=== PATIENT | male | born 1935 | race Caucasian/White ===

== ENCOUNTER → 2017-07-13 12:30 | Outpatient (CLI) | payer MEDICARE, SELFPAY ==
--- NOTE | 2017-07-13 | CYSPIN_PTH ---
PATIENT: JOAN HOWARD LOC: [facility] U#:[id number] AGE/SX: 89/M ROOM: RE07/13/[address]: Dr. Remy Juan MD : [id number] BED: DIS: SPEC #: [id number] RECD: 07/13/17 14:59 STATUS: KELL AMEE #: [id number] GERALDO: 07/13/17 00:[address]: Remy Juan DEPT: CYTOLOGY RECD BY: Maurice Joseph ENTERED: 07/13/17 15:00 SP TYPE: CYSPIN FL OTHR DR: Dr. Yair Hart MD Tissues: Urine Procedures: Pap Stain (control) Special Stain Group II Cytospin Fluid HEADER OPERATION: Not noted PRE-OP DIAGNOSIS: C67.9 TISSUE SUBMITTED: Urine for cytology DIAGNOSIS CYTOLOGY Urine for cytology (cytospin): Mildly atypical urothelial cells noted. See comment. FREDI:fannie 07/14/17 COMMENT Clinical correlation and appropriate follow up are necessary. CYTOLOGY STUDY Slides are reviewed. CYTOLOGY GROSS Received is 50 ml of clear, yellow fluid labeled with the patient's name and and designated per the requisition as urine. Submitted for cytology preparation. 07/13/17 TC:5 CPT: 53692
[2017-07-13 13:04] LABS: Cytology, Body Fluid / CSF SEE PATHOLOGY REPORT
== END ==
PROVIDERS: Family Provider Internal Medicine; PCP Internal Medicine; Visit Provider Urology
DX: C67.9 Malignant neoplasm of bladder, unspecified (principal)
CPT/HCPCS: 88108; 88313

== ENCOUNTER 2018-06-16 19:32 | Inpatient (IN) | payer MEDICARE, SELFPAY ==
[2018-06-16] VITALS (11 sets, daily range): BP systolic 113–168; BP diastolic 63–118; PULSE 76–89; RESP 16–27; TEMP 36.6–38.4; O2SAT 89–96; BMI 72.4; BMI 31.9; BMI 32.0
--- NOTE | 2018-06-16 19:39 | EKG12_ITS ---
Test Reason : SOB Blood Pressure : / mmHG Vent. Rate : 082 BPM Atrial Rate : 077 BPM P-R Int : 000 ms QRS Dur : 090 ms QT Int : 366 ms P-R-T Axes : 000 029 -09 degrees QTc Int : 427 ms Atrial fibrillation Nonspecific ST abnormality Abnormal ECG Confirmed by YASEMIN BLACK, PREETI ([id number]), greeting card editor AC MONIQUE ([id number]) on 06/21/2018 8:40:56 AM Referred By: Maude Chacon Confirmed By:PREETI HAZEL MD
--- NOTE | 2018-06-16 19:50 | ED.DCSUM_ITS ---
- ER Visit Summary Date of Service: 06/16/18 Chief Complaint: Dyspnea, cough History of Present Illness: The patient is a 83 M sent from urgent care dyspnea, cough, discussed with health care provider reported after aerosol treatment pulse ox 85%. Came by private vehicle. He states he has been having productive cough, fever today. Reports 103 at urgent care. No medications given separate aerosol treatment. No history of asthma or COPD. Remote tobacco years ago. No chest pains. No history of strokes or cardiac issues. His medicines for high blood pressure and diabetes. No nausea or vomiting. No urinary symptoms. Physical Examination: General: Alert and oriented ?3, no acute distress HEENT: Normocephalic, atraumatic. Moist mucosa membranes Neck: supple, nontender. Cardiovascular: Regular rate and rhythm, no murmurs Respiratory: Rhonchi and rales at the bases. No distress. Abdomen: Soft, nontender, nondistended Extremities: Nontender, no edema, pulses intact ?4 Neuro: no focal neurological deficits. Test Results: EKG: Rate controlled A. fib rate of 82, no ST or T wave changes. White count 8.4 hemoglobin 12.4. Creatinine 1.38. Troponin negative. Influenza negative. Liver enzymes normal. ABG pH 7.42, CO2 24, PaO2 62, HCO3 23 at 8 L of oxygen. Lactic acid 1.3. Influenza negative. Chest x-ray ill- defined left lower lobe infiltrate. Emergency Department Course and Treatment: EKG new onset A. fib rate controlled he is on metoprolol for blood pressure. Reported fever respiratory rate 22 sepsis workup initiated. White count was normal. Creatinine 1.38. Lactic acid 1.3. Covered with Rocephin and Zithromax for an acquired pneumonia. Chest x- ray does confirm this. Chads 2 score is a 3. Vitals remained stable. Order for Lovenox. After discussion with hospitalist , requested hold Lovenox at this time. This was held. Recheck in the room patient did seem to convert back to normal sinus rhythm on the monitor. Patient will be admitted for further management. Treatment Plan: [] Disposition: Admission Impression: 1. Community acquired pneumonia 2. Hypoxemia 3. New-onset atrial fibrillation rate controlled This note was generated with Emitlessation software. It may contain incorrect words, spelling, and punctuation that were not noted in review of the chart prior to signing ED Disposition - Plan for ED Patient: Disposition: Acute Care Hospital [facility] Diagnosis: Pneumonia, Hypoxemia, New onset atrial fibrillation Referrals: Yair Hart MD [Primary Care Provider] -
[2018-06-16] MEDS: Albuterol 2.5 MG/3 ML VIAL.NEB. INHALATION (20:00)
[2018-06-16] MEDS: Ipratropium/Albuterol Sulfate 3 ML AMPUL.NEB INHALATION (20:00)
--- NOTE | 2018-06-16 20:07 | RAD_ITS ---
STUDY: X-RAY CHEST REASON FOR EXAM: Male, 83 years old. Cough TECHNIQUE: Single AP portable view of the chest. COMPARISON: Prior study of 01/28/2017 FINDINGS: monitoring and evaluation advisor leads are present. There is an ill-defined left lower lobe infiltrate. There is no demonstrated pleural abnormality. Normal size heart. Normal mediastinum and bennett. Normal visualized pulmonary arteries. There are calcified plaques of the aortic arch. There are diffuse degenerative changes of the visualized thoracic spine. Normal visualized ribs, clavicles, and shoulders. There is no demonstrated abnormality of the visualized soft tissue structures of the upper abdomen. RAD/Chest 1 View (Portable) IMPRESSION: Ill-defined left lower lobe infiltrate. Degenerative changes of the thoracic spine. Calcified plaques of the aortic arch. Electronically Signed: Hola Crouch MD at 21:08 EST , Service support ,
[2018-06-16 20:25] LABS: Allen Test NEG; Base Excess -2 mmol/L (-2 to +2); Bicarbonate 22.9 mmol/L (22-26); Blood Gas Specimen Type ART; PO2 62 mmHG (75-100); SITE R Radial; SO2 92 % (95-99); Time Given 2018; Total Carbon Dioxide 24 mmol/L; pH 7.42 (7.35-7.45)
[2018-06-16 20:25] LABS: Absolute Lymphocyte Count 0.57 X10^3/ul (0.83-4.51); Absolute Neutrophil Count 6.9 X10^3/uL (2.0-7.7); Basophil# 0.03 X10^3/uL; Basophil% 0.4 % (0-1); Eosinophil# 0.01 X10^3/uL; Eosinophils% 0.1 % (0-5); Hematocrit 38.9 % (40-54); Hemoglobin 12.4 g/dl (13.0-16.5); Lymphocyte # 0.57 X10^3/ul (4.0); Lymphocyte % 6.8 % (19-41); Mean Corp Hgb Conc 31.9 g/gl (32-36); Mean Corpuscular Hgb 30.2 pg (27.0-32.0); Mean Corpuscular Volume 94.6 fL (80-94); Mean Platelet Vol. 9.5 fl (6.2-12.0); Monocyte# 0.88 X10^3/uL; Monocyte% 10.4 % (0-10); Neutrophil # 6.93 X10^3/uL (2.7-7.7); Neutrophil % 82.1 % (47-70); Platelet Count 213 K/mm3 (150-450); RBC Distribution Width SD 47.5 fl (35.1-43.9); Red Blood Count 4.11 M/mm3 (4.6-6.2); White Blood Count 8.4 K/mm3 (4.4-11.0)
[2018-06-16 20:26] LABS: Differential Indicated SCAN CRITERIA MET; POSITIVE COUNT NO; POSITIVE DIFFERENTIAL YES; POSITIVE MORPHOLOGY NO
[2018-06-16 20:46] LABS: Anisocytosis RARE; Macrocytosis RARE; Platelet Estimate ADEQUATE (ADEQ)
[2018-06-16] MEDS: Ceftriaxone 1 GM/50 ML BAG IV (21:09)
[2018-06-16 21:32] LABS: ALB/GLOB Ratio 0.8 RATIO (0.9-2.4); AST(SGOT) 30 U/L (15-37); Alanine Aminotransfer ALT/SGPT 23 U/L (16-61); Albumin, Serum 3.3 g/dL (3.2-5.0); Alkaline Phosphatase 121 U/L (45-117); Anion Gap 10 (5-15); BUN 20 mg/dL (7-18); BUN/Creat Ratio 14.5 RATIO (10-20); Calcium,Total 8.4 mg/dL (8.5-10.1); Chloride 102 mmol/L (98-107); Creatinine, Serum 1.38 mg/dL (0.70-1.30); EST Glomerular Filtration Rate 52 mL/min (>60); Est Glom Filt Rate - Afr Amer 63 mL/min (>60); Estimated Creatinine Clearance 41.14 ml/min; Globulin 4.3 g/dL (2.2-4.2); Glucose 166 mg/dL (74-106); Lactic Acid 1.3 mmol/L (0.4-2.0); Potassium 4.3 mmol/L (3.5-5.1); Protein, Total 7.6 g/dL (6.4-8.2); Sodium Level 135 mmol/L (136-145)
[2018-06-16 21:49] LABS: International Normalized Ratio 1.1; Prothrombin Time (Protime)PT. 13.7 SECONDS (11.7-14.9)
[2018-06-16 21:51] LABS: Partial Thromboplast Time 27.2 Seconds (24.1-36.2)
--- NOTE | 2018-06-16 22:09 | CM.ED ---
Social Work Note Face to face with pt to complete initial assessment. Introduced self and role at [facility]. The pt reports to live in a two-story home with his . He does utilize the stairs to the upstairs and the basement several times a day. He is able to manage the stairs, but does report a shortness of breath with this activity. Pt is independent with ADLs and does not use DME at this time. Made aware that RN JES or SW on assigned unit can assist with obtaining DME at discharge if necessary. Understanding expressed. Pt does anticipate on returning home with support of his . Confirm that his PCP is Dr. Hart, and denies establishment with any specialists. Preferred pharmacy is [facility]. Pt does not have advanced directives, provided with education and information and pt declines to completes documents at this time. No further questions and pt to be transferred to unit. PLAN: Home with support of family. Elida Johnson, GRINDER SET UP OPERATOR GEAR [employer], PROFESSIONAL HOUSING CONSULTANT
--- NOTE | 2018-06-16 22:29 | HP.PCM_ITS ---
Problem List (1) Type 2 diabetes mellitus Status: Chronic (2) Sepsis Status: Acute (3) Community acquired pneumonia Status: Acute (4) Hypoxemia Status: Acute (5) New onset atrial fibrillation Status: Suspected (6) HTN (hypertension) Status: Chronic History of Present Illness Date of Admission: 06/16/18 Chief Complaint: Fever, productive cough, shortness of breath. The patient is a 83 year old M with past medical history as mentioned above was sent from urgent care to ED for fever, productive cough and shortness of breath as well as hypoxia. The patient stated that he has been sick for 3-4 days with sore throat and productive cough with moderate amount of white sputum, associated with exertional shortness of breath as well as subjective fever and today, he had a temperature of 103 Fahrenheit at the urgent care. He denied aggravating or relieving factors for this cough or shortness of breath. He denied chest pain, palpitation, dizziness or lightheadedness. Reportedly, his pulse ox was 85% on room air after he received breathing treatment at the urgent care. In the emergency department, patient was febrile, dyspneic and tachypneic, blood pressure and heart rate were stable and initially, pulse ox was 89% on room air. Routine blood work was remarkable for BUN of 20 and creatinine of 1.38, otherwise normal. Lactic acid was normal. LFT was normal. EKG revealed normal sinus rhythm, T wave can be seen in leads I and II, difficult to differentiate on lead III and there was a concern that he may have new onset atrial fibrillation. On telemetry, definitely it is sinus rhythm. Chest x-ray revealed haziness on the left base concerning for acute infiltrate. He is being admitted for left lower lobe community-acquired pneumonia with sepsis as well as hypoxemia and bronchospasm and questionable new onset atrial fibrillation. Past Medical History Past Medical History (Chronic Problems): Chronic Problems Type 2 diabetes mellitus (Chronic) Skin cancer (Chronic) HTN (hypertension) (Chronic) Allergies No Known Allergies Allergy (Verified 06/16/18 19:36) Home Medications: Ambulatory Orders Medication Instructions Recorded Aspirin [Aspirin, Baby] 81 mg PO DAILY@0800 02/23/16 Hydrochlorothiazide [Hctz] 25 mg PO DAILY 02/23/16 Amlodipine [Norvasc] 10 mg PO DAILY 06/16/18 Aspirin 650 mg PO PRN PRN 06/16/18 Ipratropium [place] 0.06% 2 spray NASAL BID 06/16/18 [ATROVENT NASAL SPRAY] Lisinopril [Zestril] 40 mg PO DAILY 06/16/18 Metformin HCl 1,000 mg PO BIDCM 06/16/18 Metoprolol(XL)Succ [Toprol Xl 100 mg PO DAILY 06/16/18 (Beta Ayala)] Neomycin/Polymyxin B/Hydrocort 3 drop EACH EAR QHS 06/16/18 [Jqjeblza-Oxirkzoqx-Xf Ear Soln] Surgical History: - - knee surgery, bladder tumor removed, aortic aneurysm repair. Psychiatric History: No pertinent psych hx Lives: Spouse/ Significant Other Smoking Status: Never smoker Alcohol: None Drugs: None - *Family History Maternal History Items: Cancer Paternal History Items: Heart Disease Review of Systems Constitutional: Reports: Anorexia, Fever, Weakness, Fatigue. Denies: Chills Eyes: Denies: Blurred vision, Double vision, Drainage, Redness HEENT: Reports: Difficulty Hearing, Sore Throat. Denies: Ear Pain, Eye Pain, Nasal Congestion Cardiovascular: Denies: Chest Pain, Chest Pressure, Edema, Heaviness, Palpitations, Syncope Respiratory: Reports: Cough, Shortness of Breath, Sputum production, Wheezing Gastrointestinal: Denies: Abdominal Pain, Constipation, Diarrhea, Nausea, Vomiting Genitourinary: Denies: Dysuria, Frequency, Hematuria Musculoskeletal: Denies: Arm Pain, Back Pain, Foot Pain Skin: Denies: Dryness, Rash Neurological: Denies: Balance problems, Blurred vision, Double vision, Change in Speech, Slurred speech, Confusion, Headaches, Incoordination Psychiatric: Denies: Anxiety, Depression Endocrine: Denies: Change in Body Habitus, Polydipsia VTE Information - Inpt Only VTE Present on Admission: No VTE Mechan Device Prophylaxis: None VTE Pharm Prophylaxis ordered?: Yes Patient Problems: Active and Suspected Problems Sepsis (Acute) Community acquired pneumonia (Acute) Hypoxemia (Acute) New onset atrial fibrillation (Suspected) - Physical Exam General: Alert, Oriented x3, Cooperative, - - Minimally short of breath. HEENT: Atraumatic, PERRLA, EOMI, Normocephalic Oral: Moist Mucosa, No Gingival or Mucosal Lesions/ Ulcerations Neck: Supple, No JVD, Negative Carotid Bruits, Trachea Midline, Thyroid Normal Size and Texture Lungs: Diminished, Rales, Rhonchi, Short of Breath, Wheezes, - - Decreased breath sounds bilateral, coarse crackles on the left base, bilateral expiratory wheezes. Cardiovascular: Regular rate, Regular Rhythm, Normal S1, Normal S2, PMI Normal Abdomen: Bowel Sounds Present, Soft, Non Tender, Non-Distended, No Hepato- splenomegaly Extremities: No clubbing, No cyanosis, No edema Skin: No rashes, No breakdown Lymphatic: No Cervical, Supraclavicular, or Inguinal Adenopathy Neurological: Cranial nerves II-XII grossly intact, Motor Exam 5/5 strength throughout Psych/Mental Status: Normal Affect, Appropriate, Alert and oriented to time, place, person, mood and affect Vital Signs Temp Pulse Resp BP Pulse Ox 99.5 F H 85 23 H 164/77 H 94 06/16/18 22:00 06/16/18 22:00 06/16/18 22:00 06/16/18 22:00 06/16/18 22:00 Oxygen Flow Rate (L/min) 4 Oxygen Delivery Method Room Air Weight: 504 lb 13.737 oz Body Mass Index (BMI) 72.4 Microbiology Past 72 Hours 06/16/18 21:00 Influenza Types A,B Direct FA (HARSHAL) - Final Mucosa - Nasopharyngeal Laboratory Tests Past 24 Hrs 06/16/18 06/16/18 06/16/18 20:10 20:10 20:10 WBC 8.4 RBC 4.11 L Hgb 12.4 L Hct 38.9 L MCV 94.6 H MCH 30.2 MCHC 31.9 L RDW 14.0 RDW Differential 47.5 H Plt Count 213 MPV 9.5 Immature Gran % (Auto) 0.200 Neut % (Auto) 82.1 H Lymph % (Auto) 6.8 L Pine % (Auto) 10.4 H Eos % (Auto) 0.1 Baso % (Auto) 0.4 Absolute Neuts (auto) 6.9 Absolute Lymphs (auto) 0.57 L Total Counted Not Reportable Differential Comment SEE COMMENT Platelet Estimate ADEQUATE Anisocytosis RARE Macrocytosis RARE PT Cancelled INR Cancelled APTT Cancelled Specimen Type Sample Site pH Bicarbonate Actual POC Total CO2 Base Excess O2 Saturation ABG pCO2 ABG pO2 Isidro Test O2 Delivery Device Liter Flow Blood Gas Notified Whom Blood Gas Notified Time Sodium Cancelled Potassium Cancelled Chloride Cancelled Carbon Dioxide Cancelled Anion Gap Cancelled BUN Cancelled Creatinine Cancelled Estim Creat Clear Calc Cancelled Est GFR (MDRD) Af Amer Cancelled Est GFR (MDRD) Non-Af Cancelled BUN/Creatinine Ratio Cancelled Glucose Cancelled Lactic Acid Calcium Cancelled Total Bilirubin Cancelled AST Cancelled ALT Cancelled Alkaline Phosphatase Cancelled Troponin I Cancelled Total Protein Cancelled Albumin Cancelled Globulin Cancelled Albumin/Globulin Ratio Cancelled 06/16/18 06/16/18 06/16/18 20:10 20:19 21:00 WBC RBC Hgb Hct MCV MCH MCHC RDW RDW Differential Plt Count MPV Immature Gran % (Auto) Neut % (Auto) Lymph % (Auto) Pine % (Auto) Eos % (Auto) Baso % (Auto) Absolute Neuts (auto) Absolute Lymphs (auto) Total Counted Differential Comment Platelet Estimate Anisocytosis Macrocytosis PT INR APTT Specimen Type ART Sample Site R Radial pH 7.42 Bicarbonate Actual 22.9 POC Total CO2 24 Base Excess -2 O2 Saturation 92 L ABG pCO2 35.0 ABG pO2 62 L Isidro Test NEG O2 Delivery Device S Mask Liter Flow 8.0 Blood Gas Notified Whom ED Blood Gas Notified Time 2017 Sodium 135 L Potassium 4.3 Chloride 102 Carbon Dioxide 23.0 Anion Gap 10 BUN 20 H Creatinine 1.38 H Estim Creat Clear Calc 41.14 Est GFR (MDRD) Af Amer 63 Est GFR (MDRD) Non-Af 52 L BUN/Creatinine Ratio 14.5 Glucose 166 H Lactic Acid Cancelled Calcium 8.4 L Total Bilirubin 0.30 AST 30 ALT 23 Alkaline Phosphatase 121 H Troponin I < 0.015 Total Protein 7.6 Albumin 3.3 Globulin 4.3 H Albumin/Globulin Ratio 0.8 L 06/16/18 06/16/18 06/16/18 21:00 21:00 21:36 WBC RBC Hgb Hct MCV MCH MCHC RDW RDW Differential Plt Count MPV Immature Gran % (Auto) Neut % (Auto) Lymph % (Auto) Pine % (Auto) Eos % (Auto) Baso % (Auto) Absolute Neuts (auto) Absolute Lymphs (auto) Total Counted Differential Comment Platelet Estimate Anisocytosis Macrocytosis PT Cancelled 13.7 INR Cancelled 1.1 APTT Cancelled 27.2 Specimen Type Sample Site pH Bicarbonate Actual POC Total CO2 Base Excess O2 Saturation ABG pCO2 ABG pO2 Isidro Test O2 Delivery Device Liter Flow Blood Gas Notified Whom Blood Gas Notified Time Sodium Potassium Chloride Carbon Dioxide Anion Gap BUN Creatinine Estim Creat Clear Calc Est GFR (MDRD) Af Amer Est GFR (MDRD) Non-Af BUN/Creatinine Ratio Glucose Lactic Acid 1.3 Calcium Total Bilirubin AST ALT Alkaline Phosphatase Troponin I Total Protein Albumin Globulin Albumin/Globulin Ratio Clinical Impression(s) from Imaging Studies Chest X-Ray 06/16/18 20:07 IMPRESSION: Ill-defined left lower lobe infiltrate. Degenerative changes of the thoracic spine. Calcified plaques of the aortic arch. Electronically Signed: Hola Crouch MD at 21:08 EST , Service support , Assessment/Plan All Active Problems Sepsis (Acute) Community acquired pneumonia (Acute) Hypoxemia (Acute) This is an 83 years old male patient presented to the emergency room from the [facility] because of fever, productive cough and shortness of breath, found to have probable infiltrate on the chest x-ray on the left lower base as well as found to have fever, tachypnea consistent with sepsis, found to have questionable new onset A. fib on EKG and he is being admitted for left lower lobe community acquired pneumonia with sepsis, bronchospasm with hypoxemia and questionable new onset atrial fibrillation. #1 left lower lobe community-acquired pneumonia/sepsis: Chest x-ray reviewed as above. Patient is febrile, tachypneic and dyspneic with evidence of infection. Lactic acid was normal. Blood pressure and heart rate are stable. Plan: Admit to PCU, cardiac monitoring, blood culture, sputum culture, urinalysis, urine culture, pneumococcal and Legionella antigen, respiratory panel for viruses, start IV Rocephin and Zithromax for pneumonia, bronchodilators, incentive spirometer, chest physiotherapy, repeat CBC and BMP tomorrow morning, PT OT evaluation and treatment. #2 bronchospasm/hypoxemia: Diffuse wheezing on chest auscultation. Patient is an ex-smoker for a long time ago, never been diagnosed with COPD. This likely because of pneumonia. ABG revealed pH of 7.42, PCO2 of 35 and PO2 of 62. Plan: IV antibiotics, bronchodilators with DuoNeb and albuterol, oxygen by nasal cannula to keep O2 saturation more than 92%. #3 questionable new onset atrial fibrillation: EKG reviewed, P wave is evident on leads I and II, not clear on lead III. On telemetry, it is normal sinus rhythm. Patient had no cardiac history, no history of A. fib. Plan: Cardiac monitoring, repeat EKG tomorrow morning, 2D echocardiogram, TSH. #4 type 2 diabetes mellitus: ADA diet, Accu-Cheks, insulin sliding scale, hold metformin for now. #5 hypertension: Blood pressure stable, continue Norvasc, HCTZ, metoprolol and lisinopril. #6 history of abdominal aortic aneurysm: Status post repair, stable, no acute issues. #7 DVT prophylaxis: Subcu Lovenox. This note was generated with PenteoSurround dictation software. It may contain incorrect words, spelling, and punctuation that were not noted in checking the note before signing. Code Visit Inpatient E&M: 86302 Init Hosp L3
--- NOTE | 2018-06-16 22:29 | ECHOCS_ITS ---
Version 2 Reason For Study: Abn EKG Procedure This was a 2D Doppler, Color Flow transthoracic echocardiogram. Contrast injection was performed. Exam performed portable in patient room. Left Ventricle Normal LV size. Left ventricular systolic function is normal. The estimated ejection fraction is 55 %. Stage 1 diastolic dysfunction. No regional wall motion abnormalities noted. Right Ventricle Normal RV size. Normal systolic function. Atria The left atrium is mildly enlarged. Normal right atrium. Mitral Valve Normal mitral valve. Tricuspid Valve Normal tricuspid valve. Mild to moderate (1-2+) tricuspid valve insufficiency. Pulmonary artery systolic pressure is 50 mmHg. Mild pulmonary hypertension. Aortic Valve Trisinus/trileaflet aortic valve. Mild focal aortic valve calcification. Pulmonic Valve Normal pulmonic valve. Great Vessels Normal aortic root. The pulmonary artery is normal size. Normal inferior vena cava. Pericardium/Pleural No pericardial effusion. Medication Definity0.2ml given slow IV push to enhance endocardial definition. MMode/2D Measurements & Calculations LVIDd: 3.9 cm IVSd: 1.6 cm Ao root diam: 3.1 cm LVIDs: 2.2 cm LVPWd: 1.2 cm RVDd: 4.2 cm FS: 43.4 % LAV(MOD-bp): 65.8 ml LVAd ap4: 34.0 cm2 SV(MOD-sp4): 72.5 ml LAV(MOD-bp) Indexed: 30.1 ml/m2 EDV(MOD-sp4): 117.5 ml LAV(MOD-sp2): 68.1 ml EDV(sp4-el): 123.2 ml LAV(MOD-sp4): 63.1 ml LVAs ap4: 19.1 cm2 ESV(MOD-sp4): 45.0 ml ESV(sp4-el): 44.6 ml EF(MOD-sp4): 61.7 % EF(sp4-el): 63.8 % SV(sp4-el): 78.6 ml LA A4 area: 22.5 cm2 LA dimension(2D): 4.7 cm RA A4 area: 17.1 cm2 Doppler Measurements & Calculations MV E max derick: 99.0 cm/sec Lat Peak E' Derick: 9.0 cm/sec Med Peak E' Derick: 6.4 cm/sec MV A max derick: 108.7 cm/sec E/E' lat: 11.0 E/E' med: 15.5 MV E/A: 0.91 Ao V2 max: 152.1 cm/sec LV V1 max: 116.9 cm/sec PA V2 max: 95.0 cm/sec Ao max P.2 mmHg LV V1 max P.5 mmHg Ao V2 mean: 103.5 cm/sec Ao mean P.1 mmHg Ao V2 VTI: 30.9 cm PI end-d derick: 113.0 cm/sec TR max derick: 329.3 cm/sec TR max P.4 mmHg Interpretation Summary Normal LV size. Left ventricular systolic function is normal. The estimated ejection fraction is 55 %. Stage 1 diastolic dysfunction. Mild focal aortic valve calcification. Pulmonary artery systolic pressure is 50 mmHg. Mild pulmonary hypertension. Contrast injection was performed. Ordering Physician: Maude Chacon Referring Physician: Yair Hart Performed By: Karina Valentine, JOHN, RVT
[2018-06-16 23:05] LABS: Thyroid Stim Hormone (TSH) 1.83 uIU/mL (0.358-3.74)
[2018-06-17] VITALS (15 sets, daily range): BP systolic 119–146; BP diastolic 64–83; PULSE 64–80; RESP 17–22; TEMP 36.5–37.4; O2SAT 92–97
[2018-06-17] MEDS: Ipratropium/Albuterol Sulfate 3 ML AMPUL.NEB INHALATION ×4 (00:57→20:00)
[2018-06-17 03:56] LABS: Mucous, Urine 0 SEEN /hpf (<or=2+); Red Blood Cells-Urine 0 SEEN /hpf (0-5); White Blood Cells 0 SEEN /hpf (0-5)
[2018-06-17 04:15] LABS: Color, Urine Yellow (Yellow); Glucose, Dipstick Normal (Normal); Ketone-Dipstick 5 mg/dl (Negative); Leukocyte Esterase-Dipstick Negative /ul (Negative); Nitrite-Dipstick Negative (Negative); Occult Blood-Urine Negative /ul (Negative); Protein-Dipstick 15 mg/dl (Negative); Urine Bilirubin Dipstick Negative (Negative); Urine Clarity Clear (Clear); Urine Urobilinogen Normal (Normal)
[2018-06-17 04:21] LABS: Bacteria RARE /hpf (None Seen); Squamous Epithelial Cells - UA 0-5 SEEN /hpf (0-5)
[2018-06-17 05:52] LABS: Anion Gap 9 (5-15); BUN 17 mg/dL (7-18); BUN/Creat Ratio 14.2 RATIO (10-20); Calcium,Total 7.9 mg/dL (8.5-10.1); Chloride 103 mmol/L (98-107); EST Glomerular Filtration Rate 61 mL/min (>60); Est Glom Filt Rate - Afr Amer 74 mL/min (>60); Estimated Creatinine Clearance 47.31 ml/min; Glucose 130 mg/dL (74-106); Potassium 3.3 mmol/L (3.5-5.1); Sodium Level 138 mmol/L (136-145)
--- NOTE | 2018-06-17 05:55 | EKG12_ITS ---
Test Reason : AM EKG Blood Pressure : / mmHG Vent. Rate : 075 BPM Atrial Rate : 156 BPM P-R Int : 160 ms QRS Dur : 094 ms QT Int : 394 ms P-R-T Axes : 075 025 018 degrees QTc Int : 439 ms Sinus tachycardia with 2nd degree A-V block (Mobitz II) Nonspecific ST abnormality Abnormal ECG When compared with ECG of 16-JUN-2018 20:07, MANUAL COMPARISON REQUIRED, DATA IS UNCONFIRMED Confirmed by YASEMIN BLACK, PREETI ([id number]), school photograph editor AC MONIQUE ([id number]) on 06/21/2018 8:59:48 AM Referred By: Maude Chacon Confirmed By:PREETI HAZEL MD
[2018-06-17 06:11] LABS: Absolute Lymphocyte Count 0.49 X10^3/ul (0.83-4.51); Absolute Neutrophil Count 4.9 X10^3/uL (2.0-7.7); Basophil# 0.01 X10^3/uL; Basophil% 0.2 % (0-1); Hematocrit 33.5 % (40-54); Hemoglobin 10.9 g/dl (13.0-16.5); Lymphocyte # 0.49 X10^3/ul (4.0); Lymphocyte % 8.1 % (19-41); Mean Corp Hgb Conc 32.5 g/gl (32-36); Mean Corpuscular Hgb 31.1 pg (27.0-32.0); Mean Corpuscular Volume 95.4 fL (80-94); Mean Platelet Vol. 9.2 fl (6.2-12.0); Monocyte# 0.66 X10^3/uL; Monocyte% 10.9 % (0-10); Neutrophil # 4.89 X10^3/uL (2.7-7.7); Neutrophil % 80.6 % (47-70); Platelet Count 198 K/mm3 (150-450); RBC Distribution Width CV 13.4 % (11.6-14.6); RBC Distribution Width SD 44.1 fl (35.1-43.9); Red Blood Count 3.51 M/mm3 (4.6-6.2); White Blood Count 6.1 K/mm3 (4.4-11.0)
[2018-06-17 06:14] LABS: Differential Indicated SCAN CRITERIA MET; POSITIVE COUNT NO; POSITIVE DIFFERENTIAL YES; POSITIVE MORPHOLOGY NO
[2018-06-17 07:11] LABS: Bedside Glucose 139 mg/dL (70-110)
[2018-06-17] MEDS: guaiFENesin 1,200 MG Tablet 1200 MG PO ×2 (09:03→21:46)
[2018-06-17] MEDS: Aspirin 81 MG TAB.CHEW PO (09:03)
[2018-06-17] MEDS: amLODIPine 10 MG Tablet PO (09:03)
[2018-06-17] MEDS: hydroCHLOROthiazide 25 MG Tablet PO (09:03)
[2018-06-17] MEDS: Enoxaparin 30 MG/0.3 ML Syringe SC (09:04)
[2018-06-17] MEDS: Lisinopril 40 MG Tablet PO (09:04)
[2018-06-17] MEDS: Metoprolol(XL)Succ 100 MG Tablet PO (09:04)
[2018-06-17 09:46] LABS: Magnesium 1.6 mg/dL (1.6-2.6)
--- NOTE | 2018-06-17 10:30 | CASEMGMT ---
Addendum entered by Carol Julian 06/17/18 16:07: *Pt states he has no preference of DME company for the walker or for O2 if he would need it. Script obtained and faxed to [facility]. *PT/RUPESH alvarenga reviewed and LEXY ANDRE discussed therapy with pt. Pt states he would like to do Out-pt therapy. States he has done this in the past and thought that it was very helpful. Script obtained for Out-pt PT and given to pt so he can take to Out-pt therapy location of his choice. Pt voices appreciation. *Pt will need Home O2 qualification testing completed within 24 hrs of discharge to determine if pt qualifies for oxygen on d/c. Original Note: RN JES NOTE: To room to talk with pt. Intro self and LEXY ANDRE role to pt. Pt sitting up in recliner chair, awake/alert/oriented. Per SW note, pt stated he may need a cane or a walker. Discussion with pt about these DME. Pt made aware insurance will not cover cost of cane but that he could purchase [id number]. Pt stated, I have a cane available if I would need it. Pt stated he would like a walker if it can be billed through insurance. PT/OT lyle pending. Cuong WATERS RN, CM
[2018-06-17] MEDS: 0.9% NaCl Peripheral Flush Adult/Peds IV ×2 (10:43→14:03)
[2018-06-17 11:55] LABS: Bedside Glucose 165 mg/dL (70-110)
--- NOTE | 2018-06-17 14:15 | PN_ITS ---
Addendum entered and electronically signed by LUCI Garza 06/17/18 14:16: Code Visit Additional diagnosis: Chronic kidney disease stage III-at baseline. Original Note: Patient Problems: Active and Suspected Problems Sepsis (Acute) Community acquired pneumonia (Acute) Hypoxemia (Acute) New onset atrial fibrillation (Suspected) Subjective: Patient seen and examined. Breathing somewhat improved. Complains of cough, states he is unable to bring up sputum. Complains of intermittent fever/chills. - Physical Exam General: Alert, Oriented x3, Cooperative, No apparent distress HEENT: Atraumatic, PERRLA, EOMI, Normocephalic Neck: Supple, No JVD, Negative Carotid Bruits Lungs: Diminished, Rhonchi, Wheezes Cardiovascular: Regular rate, Regular Rhythm, Normal S1, Normal S2, No murmurs Abdomen: Bowel Sounds Present, Soft, Non Tender, Non-Distended Extremities: No clubbing, No cyanosis, No edema, Capillary Refill Less than 3 Seconds Skin: No rashes, No breakdown Musculoskeletal: No Tenderness to Palpation of Joints or Extremities Neurological: Cranial nerves II-XII grossly intact, Neuro grossly intact Psych/Mental Status: Normal Affect, Appropriate Vital Signs Temp Pulse Resp BP Pulse Ox 98.7 F 69 22 H 130/68 H 93 06/17/18 08:51 06/17/18 11:21 06/17/18 13:28 06/17/18 09:04 06/17/18 08:51 Oxygen Flow Rate (L/min) 3 Oxygen Delivery Method Nasal Cannula Weight: 222 lb 14.197 oz Body Mass Index (BMI) 31.9 Intake and Output for Last 24 Hours 06/15/18 06/16/18 06/17/18 23:59 23:59 23:59 Intake Total 400 / 400 1614 / 1614 Output Total 0 / 0 Balance 400 / 400 1614 / 1614 Microbiology Past 72 Hours 06/17/18 01:00 Respiratory Panel (PCR) - Final Mucosa - Nose RSV B 06/17/18 03:50 Legionella Antigen - Final Urine, Clean Catch 06/17/18 03:50 Streptococcus pneumoniae Antigen (M - Final Urine, Clean Catch 06/16/18 21:00 Influenza Types A,B Direct FA (HARSHAL) - Final Mucosa - Nasopharyngeal Laboratory Tests Past 24 Hrs 06/16/18 06/16/18 06/16/18 20:10 20:10 20:10 WBC 8.4 RBC 4.11 L Hgb 12.4 L Hct 38.9 L MCV 94.6 H MCH 30.2 MCHC 31.9 L RDW 14.0 RDW Differential 47.5 H Plt Count 213 MPV 9.5 Immature Gran % (Auto) 0.200 Neut % (Auto) 82.1 H Lymph % (Auto) 6.8 L Dare % (Auto) 10.4 H Eos % (Auto) 0.1 Baso % (Auto) 0.4 Absolute Neuts (auto) 6.9 Absolute Lymphs (auto) 0.57 L Total Counted Not Reportable Differential Comment SEE COMMENT Platelet Estimate ADEQUATE Anisocytosis RARE Macrocytosis RARE PT Cancelled INR Cancelled APTT Cancelled Specimen Type Sample Site pH Bicarbonate Actual POC Total CO2 Base Excess O2 Saturation ABG pCO2 ABG pO2 Isidro Test O2 Delivery Device Liter Flow Blood Gas Notified Whom Blood Gas Notified Time Sodium Cancelled Potassium Cancelled Chloride Cancelled Carbon Dioxide Cancelled Anion Gap Cancelled BUN Cancelled Creatinine Cancelled Estim Creat Clear Calc Cancelled Est GFR (MDRD) Af Amer Cancelled Est GFR (MDRD) Non-Af Cancelled BUN/Creatinine Ratio Cancelled Glucose Cancelled Lactic Acid Calcium Cancelled Magnesium Total Bilirubin Cancelled AST Cancelled ALT Cancelled Alkaline Phosphatase Cancelled Troponin I Cancelled Total Protein Cancelled Albumin Cancelled Globulin Cancelled Albumin/Globulin Ratio Cancelled TSH Urine Color Urine Clarity Urine pH Ur Specific [place] Urine Protein Urine Glucose (UA) Urine Ketones Urine Occult Blood Urine Nitrite Urine Bilirubin Urine Urobilinogen Ur Leukocyte Esterase Urine RBC Urine WBC Ur Squamous Epith Cells Urine Bacteria Urine Mucus 06/16/18 06/16/18 06/16/18 20:10 20:19 21:00 WBC RBC Hgb Hct MCV MCH MCHC RDW RDW Differential Plt Count MPV Immature Gran % (Auto) Neut % (Auto) Lymph % (Auto) Dare % (Auto) Eos % (Auto) Baso % (Auto) Absolute Neuts (auto) Absolute Lymphs (auto) Total Counted Differential Comment Platelet Estimate Anisocytosis Macrocytosis PT INR APTT Specimen Type ART Sample Site R Radial pH 7.42 Bicarbonate Actual 22.9 POC Total CO2 24 Base Excess -2 O2 Saturation 92 L ABG pCO2 35.0 ABG pO2 62 L Isidro Test NEG O2 Delivery Device S Mask Liter Flow 8.0 Blood Gas Notified Whom ED Blood Gas Notified Time 2017 Sodium 135 L Potassium 4.3 Chloride 102 Carbon Dioxide 23.0 Anion Gap 10 BUN 20 H Creatinine 1.38 H Estim Creat Clear Calc 41.14 Est GFR (MDRD) Af Amer 63 Est GFR (MDRD) Non-Af 52 L BUN/Creatinine Ratio 14.5 Glucose 166 H Lactic Acid Cancelled Calcium 8.4 L Magnesium Total Bilirubin 0.30 AST 30 ALT 23 Alkaline Phosphatase 121 H Troponin I < 0.015 Total Protein 7.6 Albumin 3.3 Globulin 4.3 H Albumin/Globulin Ratio 0.8 L TSH Urine Color Urine Clarity Urine pH Ur Specific [place] Urine Protein Urine Glucose (UA) Urine Ketones Urine Occult Blood Urine Nitrite Urine Bilirubin Urine Urobilinogen Ur Leukocyte Esterase Urine RBC Urine WBC Ur Squamous Epith Cells Urine Bacteria Urine Mucus 06/16/18 06/16/18 06/16/18 21:00 21:00 21:00 WBC RBC Hgb Hct MCV MCH MCHC RDW RDW Differential Plt Count MPV Immature Gran % (Auto) Neut % (Auto) Lymph % (Auto) Dare % (Auto) Eos % (Auto) Baso % (Auto) Absolute Neuts (auto) Absolute Lymphs (auto) Total Counted Differential Comment Platelet Estimate Anisocytosis Macrocytosis PT Cancelled INR Cancelled APTT Cancelled Specimen Type Sample Site pH Bicarbonate Actual POC Total CO2 Base Excess O2 Saturation ABG pCO2 ABG pO2 Isidro Test O2 Delivery Device Liter Flow Blood Gas Notified Whom Blood Gas Notified Time Sodium Potassium Chloride Carbon Dioxide Anion Gap BUN Creatinine Estim Creat Clear Calc Est GFR (MDRD) Af Amer Est GFR (MDRD) Non-Af BUN/Creatinine Ratio Glucose Lactic Acid 1.3 Calcium Magnesium Total Bilirubin AST ALT Alkaline Phosphatase Troponin I Total Protein Albumin Globulin Albumin/Globulin Ratio TSH 1.83 Urine Color Urine Clarity Urine pH Ur Specific [place] Urine Protein Urine Glucose (UA) Urine Ketones Urine Occult Blood Urine Nitrite Urine Bilirubin Urine Urobilinogen Ur Leukocyte Esterase Urine RBC Urine WBC Ur Squamous Epith Cells Urine Bacteria Urine Mucus 06/16/18 06/17/18 06/17/18 21:36 03:50 05:20 WBC 6.1 RBC 3.51 L Hgb 10.9 L Hct 33.5 L MCV 95.4 H MCH 31.1 MCHC 32.5 RDW 13.4 RDW Differential 44.1 H Plt Count 198 MPV 9.2 Immature Gran % (Auto) 0.200 Neut % (Auto) 80.6 H Lymph % (Auto) 8.1 L Dare % (Auto) 10.9 H Eos % (Auto) 0.0 Baso % (Auto) 0.2 Absolute Neuts (auto) 4.9 Absolute Lymphs (auto) 0.49 L Total Counted Not Reportable Differential Comment Platelet Estimate Anisocytosis Macrocytosis PT 13.7 INR 1.1 APTT 27.2 Specimen Type Sample Site pH Bicarbonate Actual POC Total CO2 Base Excess O2 Saturation ABG pCO2 ABG pO2 Isidro Test O2 Delivery Device Liter Flow Blood Gas Notified Whom Blood Gas Notified Time Sodium Potassium Chloride Carbon Dioxide Anion Gap BUN Creatinine Estim Creat Clear Calc Est GFR (MDRD) Af Amer Est GFR (MDRD) Non-Af BUN/Creatinine Ratio Glucose Lactic Acid Calcium Magnesium Total Bilirubin AST ALT Alkaline Phosphatase Troponin I Total Protein Albumin Globulin Albumin/Globulin Ratio TSH Urine Color Yellow Urine Clarity Clear Urine pH 5.0 Ur Specific [place] 1.020 Urine Protein 15 H Urine Glucose (UA) Normal Urine Ketones 5 H Urine Occult Blood Negative Urine Nitrite Negative Urine Bilirubin Negative Urine Urobilinogen Normal Ur Leukocyte Esterase Negative Urine RBC 0 SEEN Urine WBC 0 SEEN Ur Squamous Epith Cells 0-5 SEEN Urine Bacteria RARE Urine Mucus 0 SEEN 06/17/18 06/17/18 05:20 05:40 WBC RBC Hgb Hct MCV MCH MCHC RDW RDW Differential Plt Count MPV Immature Gran % (Auto) Neut % (Auto) Lymph % (Auto) Dare % (Auto) Eos % (Auto) Baso % (Auto) Absolute Neuts (auto) Absolute Lymphs (auto) Total Counted Differential Comment Platelet Estimate Anisocytosis Macrocytosis PT INR APTT Specimen Type Sample Site pH Bicarbonate Actual POC Total CO2 Base Excess O2 Saturation ABG pCO2 ABG pO2 Isidro Test O2 Delivery Device Liter Flow Blood Gas Notified Whom Blood Gas Notified Time Sodium 138 Potassium 3.3 L Chloride 103 Carbon Dioxide 26.0 Anion Gap 9 BUN 17 Creatinine 1.20 Estim Creat Clear Calc 47.31 Est GFR (MDRD) Af Amer 74 Est GFR (MDRD) Non-Af 61 BUN/Creatinine Ratio 14.2 Glucose 130 H Lactic Acid Calcium 7.9 L Magnesium 1.6 Total Bilirubin AST ALT Alkaline Phosphatase Troponin I Total Protein Albumin Globulin Albumin/Globulin Ratio TSH Urine Color Urine Clarity Urine pH Ur Specific [place] Urine Protein Urine Glucose (UA) Urine Ketones Urine Occult Blood Urine Nitrite Urine Bilirubin Urine Urobilinogen Ur Leukocyte Esterase Urine RBC Urine WBC Ur Squamous Epith Cells Urine Bacteria Urine Mucus POC Glucose 06/17/18 06/17/18 11:50 06:57 POC Glucose 165 H 139 H Medical Necessity - Tobacco Use Smoking Status: Never smoker Assessment/Plan All Active Problems Sepsis (Acute) Community acquired pneumonia (Acute) Hypoxemia (Acute) 1. Acute hypoxic respiratory insufficiency secondary to left lower lobe community-acquired pneumonia and acute RSV B-patient did not meet criteria for sepsis. Chest x-ray admission with left lower lobe infiltrate. Urine for strep and Legionella negative. Respiratory panel positive for RSV. Continue azithromycin and Rocephin. Mucinex 1200 mg p.o. twice daily. IV Solu-Medrol. Albuterol and DuoNeb aerosols. IS. Continue supplement oxygen to maintain O2 at or above 90%. Tylenol as needed for fever. Blood cultures pending. 2. Questionable new onset atrial fibrillation-has remained sinus rhythm during admission. EKG on admission with questionable A. fib. TSH, Mg within normal limits. Echocardiogram pending. Monitor telemetry. Troponin negative. 3. Type 2 diabetes [id number] ACHS with sliding scale insulin. Metformin on hold. 4. Hypertension-on lisinopril, metoprolol, HCTZ, amlodipine. 5. Extensive tobacco use history, never evaluated for COPD-recommend outpatient follow-up. 6. History of abdominal aortic aneurysm status post repair DVT prophylaxis-Lovenox subcu This patient was seen by LUCI Garza under the supervision of Dr. Flores.
[2018-06-17] MEDS: Insulin Lispro 100 UNIT/ML INSULN.PEN SQ ×2 (16:30→21:55)
[2018-06-17 16:31] LABS: Bedside Glucose 270 mg/dL (70-110)
[2018-06-17 17:32] LABS: Ferritin 556 ng/mL (26-388); Iron 16 ug/dL (65-175); Iron Binding Capacity,Total 239 ug/dL (250-450); PERCENT IRON SATURATION 6.7 % (15.0-55.0)
[2018-06-17] MEDS: Ceftriaxone 1 GM/50 ML BAG IV (21:45)
[2018-06-17 22:16] LABS: Bedside Glucose 318 mg/dL (70-110)
[2018-06-18] VITALS (17 sets, daily range): BP systolic 124–145; BP diastolic 63–81; PULSE 57–81; RESP 16–22; TEMP 36.4–37.1; O2SAT 90–96
[2018-06-18] MEDS: 0.9% NaCl Peripheral Flush Adult/Peds IV (06:09)
[2018-06-18 07:01] LABS: Bedside Glucose 278 mg/dL (70-110)
[2018-06-18] MEDS: Ipratropium/Albuterol Sulfate 3 ML AMPUL.NEB INHALATION ×4 (07:03→19:00)
[2018-06-18 07:11] LABS: Hematocrit 35.3 % (40-54); Hemoglobin 11.5 g/dl (13.0-16.5); Mean Corp Hgb Conc 32.6 g/gl (32-36); Mean Corpuscular Volume 95.1 fL (80-94); Mean Platelet Vol. 9.8 fl (6.2-12.0); Platelet Count 189 K/mm3 (150-450); RBC Distribution Width CV 13.1 % (11.6-14.6); RBC Distribution Width SD 43.6 fl (35.1-43.9); Red Blood Count 3.71 M/mm3 (4.6-6.2); White Blood Count 7.1 K/mm3 (4.4-11.0)
[2018-06-18 07:18] LABS: Scan Indicated on CBC? Y/N NO
[2018-06-18] MEDS: Insulin Lispro 100 UNIT/ML INSULN.PEN SQ ×4 (07:46→21:42)
[2018-06-18 08:24] LABS: Anion Gap 9 (5-15); BUN 23 mg/dL (7-18); BUN/Creat Ratio 16.3 RATIO (10-20); Calcium,Total 8.2 mg/dL (8.5-10.1); Chloride 102 mmol/L (98-107); Creatinine, Serum 1.41 mg/dL (0.70-1.30); EST Glomerular Filtration Rate 51 mL/min (>60); Est Glom Filt Rate - Afr Amer 62 mL/min (>60); Estimated Creatinine Clearance 40.27 ml/min; Glucose 274 mg/dL (74-106); Potassium 4.4 mmol/L (3.5-5.1); Sodium Level 135 mmol/L (136-145)
[2018-06-18] MEDS: amLODIPine 10 MG Tablet PO (09:28)
[2018-06-18] MEDS: Metoprolol(XL)Succ 100 MG Tablet PO (09:28)
[2018-06-18] MEDS: Lisinopril 40 MG Tablet PO (09:30)
[2018-06-18] MEDS: hydroCHLOROthiazide 25 MG Tablet PO (09:30)
[2018-06-18] MEDS: Aspirin 81 MG TAB.CHEW PO (09:30)
[2018-06-18] MEDS: Enoxaparin 30 MG/0.3 ML Syringe SC (09:34)
[2018-06-18] MEDS: guaiFENesin 1,200 MG Tablet 1200 MG PO ×2 (09:35→21:42)
--- NOTE | 2018-06-18 11:49 | PCM.PROGNOTE ---
Patient Problems: Active and Suspected Problems Sepsis (Acute) Community acquired pneumonia (Acute) Hypoxemia (Acute) New onset atrial fibrillation (Suspected) Subjective: Patient seen and examined. Breathing improving. Continues to require supplemental oxygen. Patient states has trouble taking a deep breath due to making him cough. No productive cough. No other complaints. - Physical Exam General: Alert, Oriented x3, Cooperative HEENT: Atraumatic, PERRLA, EOMI, Normocephalic Oral: Dry Mucosa Neck: Supple, No JVD, Negative Carotid Bruits Lungs: Diminished, Rhonchi, Wheezes Abdomen: Bowel Sounds Present, Soft, Non Tender, Non-Distended Extremities: No clubbing, No cyanosis, No edema, Capillary Refill Less than 3 Seconds Skin: No rashes, No breakdown Musculoskeletal: No Tenderness to Palpation of Joints or Extremities Neurological: Cranial nerves II-XII grossly intact, Neuro grossly intact Psych/Mental Status: Normal Affect, Appropriate Vital Signs Temp Pulse Resp BP Pulse Ox 98.8 F 80 20 H 140/74 H 96 06/18/18 10:20 06/18/18 11:18 06/18/18 11:18 06/18/18 10:20 06/18/18 10:20 Oxygen Flow Rate (L/min) 3 Oxygen Delivery Method Nasal Cannula Weight: 222 lb 14.197 oz Body Mass Index (BMI) 31.9 Intake and Output for Last 24 Hours 06/16/18 06/17/18 06/18/18 23:59 23:59 23:59 Intake Total 400 / 400 2430 / 2430 Output Total 0 / 0 Balance 400 / 400 2430 / 2430 Microbiology Past 72 Hours 06/17/18 03:50 Urine Culture - Preliminary Urine, Clean Catch Culture exhibits no growth. 06/17/18 01:00 Respiratory Panel (PCR) - Final Mucosa - Nose RSV B 06/17/18 03:50 Legionella Antigen - Final Urine, Clean Catch 06/17/18 03:50 Streptococcus pneumoniae Antigen (M - Final Urine, Clean Catch 06/16/18 21:00 Influenza Types A,B Direct FA (HARSHAL) - Final Mucosa - Nasopharyngeal Laboratory Tests Past 24 Hrs 06/17/18 06/18/18 06/18/18 05:40 06:57 06:57 WBC 7.1 RBC 3.71 L Hgb 11.5 L Hct 35.3 L MCV 95.1 H MCH 31.0 MCHC 32.6 RDW 13.1 RDW Differential 43.6 Plt Count 189 MPV 9.8 Sodium 135 L Potassium 4.4 Chloride 102 Carbon Dioxide 24.0 Anion Gap 9 BUN 23 H Creatinine 1.41 H Estim Creat Clear Calc 40.27 Est GFR (MDRD) Af Amer 62 Est GFR (MDRD) Non-Af 51 L BUN/Creatinine Ratio 16.3 Glucose 274 H Calcium 8.2 L Iron 16 L TIBC 239 L Iron Saturation 6.7 L Ferritin 556 H Vitamin B12 Folate 23.40 06/18/18 06:57 WBC RBC Hgb Hct MCV MCH MCHC RDW RDW Differential Plt Count MPV Sodium Potassium Chloride Carbon Dioxide Anion Gap BUN Creatinine Estim Creat Clear Calc Est GFR (MDRD) Af Amer Est GFR (MDRD) Non-Af BUN/Creatinine Ratio Glucose Calcium Iron TIBC Iron Saturation Ferritin Vitamin B12 Pending Folate POC Glucose 06/18/18 06/17/18 06/17/18 06:50 21:53 16:17 POC Glucose 278 H 318 H 270 H 06/17/18 11:50 POC Glucose 165 H Medical Necessity - Tobacco Use Smoking Status: Never smoker Assessment/Plan All Active Problems Sepsis (Acute) Community acquired pneumonia (Acute) Hypoxemia (Acute) 1. Acute hypoxic respiratory insufficiency secondary to left lower lobe community-acquired pneumonia and acute RSV B- Chest x-ray admission with left lower lobe infiltrate. Urine for strep and Legionella negative. Respiratory panel positive for RSV. Continue azithromycin and Rocephin. Mucinex 1200 mg p.o. twice daily. IV Solu-Medrol. Albuterol and DuoNeb aerosols. IS. Continue supplement oxygen to maintain O2 at or above 90%. Tylenol as needed for fever. Blood cultures pending. Walking pulse ox pending, anticipate patient will need to supplement oxygen at discharge. 2. Questionable new onset atrial fibrillation-has remained sinus rhythm during admission. EKG on admission with questionable A. fib. TSH, Mg within normal limits. Echocardiogram showed an EF of 55%, stage I diastolic dysfunction, pulmonary artery systolic pressure 50 mmHg. Monitor telemetry. Troponin negative. 3. Type 2 diabetes [id number]-Lkvoy ACHS with sliding scale insulin. Metformin on hold. 4. Hypertension-on lisinopril, metoprolol, HCTZ, amlodipine. 5. Extensive tobacco use history, never evaluated for COPD-recommend outpatient follow-up. 6. History of abdominal aortic aneurysm status post repair 7. Chronic macrocytic anemia/iron deficiency anemia-stable. Initiated on iron supplementation. 8. Chronic kidney disease stage III-creatinine increased from yesterday, 1.4 today. Gentle IV fluids. Repeat BMP in a.m. DVT prophylaxis-Lovenox subcu This patient was seen by LUCI Garza under the supervision of Dr. Flores.
[2018-06-18] MEDS: Ferrous Gluconate 324 MG Tablet PO ×2 (12:42→16:20)
[2018-06-18] MEDS: 0.9% Normal Saline 1,000 ML 100 ML IV (12:43)
--- NOTE | 2018-06-18 14:40 | NURSING ---
Student nurse charting reviewed.
[2018-06-18 16:21] LABS: Bedside Glucose 328 mg/dL (70-110)
[2018-06-18 16:56] LABS: Bedside Glucose 290 mg/dL (70-110)
[2018-06-18] MEDS: Ceftriaxone 1 GM/50 ML BAG IV (21:42)
[2018-06-18 22:11] LABS: Bedside Glucose 275 mg/dL (70-110)
[2018-06-19] VITALS (7 sets, daily range): BP systolic 128–130; BP diastolic 57–78; PULSE 65–84; RESP 16–18; TEMP 36.2–36.3; O2SAT 92–94
[2018-06-19] MEDS: 0.9% NaCl Peripheral Flush Adult/Peds IV ×2 (05:48→05:49)
[2018-06-19] MEDS: Ipratropium/Albuterol Sulfate 3 ML AMPUL.NEB INHALATION (06:53)
[2018-06-19 07:04] LABS: Anion Gap 11 (5-15); BUN 27 mg/dL (7-18); BUN/Creat Ratio 22.1 RATIO (10-20); Calcium,Total 8.6 mg/dL (8.5-10.1); Chloride 103 mmol/L (98-107); Creatinine, Serum 1.22 mg/dL (0.70-1.30); EST Glomerular Filtration Rate 60 mL/min (>60); Est Glom Filt Rate - Afr Amer 73 mL/min (>60); Estimated Creatinine Clearance 46.54 ml/min; Glucose 197 mg/dL (74-106); Sodium Level 139 mmol/L (136-145)
[2018-06-19 07:06] LABS: Bedside Glucose 173 mg/dL (70-110)
[2018-06-19] MEDS: Insulin Lispro 100 UNIT/ML INSULN.PEN SQ (08:29)
[2018-06-19] MEDS: Lisinopril 40 MG Tablet PO (09:49)
[2018-06-19] MEDS: Metoprolol(XL)Succ 100 MG Tablet PO (09:49)
[2018-06-19] MEDS: amLODIPine 10 MG Tablet PO (09:49)
[2018-06-19] MEDS: Ferrous Gluconate 324 MG Tablet PO (09:49)
[2018-06-19] MEDS: hydroCHLOROthiazide 25 MG Tablet PO (09:49)
[2018-06-19] MEDS: Enoxaparin 30 MG/0.3 ML Syringe SC (09:49)
[2018-06-19] MEDS: guaiFENesin 1,200 MG Tablet 1200 MG PO (09:49)
[2018-06-19] MEDS: Aspirin 81 MG TAB.CHEW PO (09:49)
--- NOTE | 2018-06-19 11:05 | DCINST_ITS ---
- Discharge Diagnoses Current Active Problems: Current Active and Chronic Problems Type 2 diabetes mellitus (Chronic) Sepsis (Acute) Community acquired pneumonia (Acute) Hypoxemia (Acute) You will use the following diet at home:: Calorie/Carbohydrate Controlled (specify 1200, 1400, etc) Discharge Activity: Return to Normal Activity Call your doctor if you observe: Fever of 101 or Higher, Shortness of breath, Dizziness, Fainting spells, Chest pain Allergies/Adverse Reactions: Allergies No Known Allergies Allergy (Verified 06/16/18 19:36) Medications to take at Discharge Aspirin [Aspirin, Baby] 81 mg PO DAILY@0800 02/23/16 Hydrochlorothiazide [Hctz] 25 mg PO DAILY 02/23/16 Amlodipine [Norvasc] 10 mg PO DAILY 06/16/18 Aspirin 650 mg PO PRN PRN 06/16/18 Ipratropium [place] 0.06% [ATROVENT NASAL SPRAY] 2 spray NASAL BID 06/16/18 Lisinopril [Zestril] 40 mg PO DAILY 06/16/18 Metformin HCl 1,000 mg PO BIDCM 06/16/18 Metoprolol(XL)Succ [Toprol Xl (Beta Ayala)] 100 mg PO DAILY 06/16/18 Neomycin/Polymyxin B/Hydrocort [Aplphdvf-Gjhqyboxb-Wp Ear Soln] 3 drop EACH EAR QHS 06/16/18 Albuterol Inhaler [Ventolin Hfa] 1 - 2 puff INHALATION Q4H PRN PRN #1 inhaler 06/19/18 Ferrous Gluconate 324 mg PO BIDCM #60 tablet 06/19/18 Prednisone See Taper PO DAILY #30 tablet 06/19/18 levoFLOXacin tablet [Levaquin tablet] 750 mg PO DAILY #7 tablet 06/19/18 The following prescriptions were given: Albuterol Inhaler [Ventolin Hfa] 1 - 2 puff INHALATION Q4H PRN PRN #1 inhaler PRN Reason: Shortness Of Breath levoFLOXacin tablet [Levaquin tablet] 750 mg PO DAILY #7 tablet Prednisone See Taper PO DAILY #30 tablet Ferrous Gluconate 324 mg PO BIDCM #60 tablet Primary Care Physician: Yair Hart MD [Primary Care Provider] - Please follow up with your Primary Care Physician in: 1 Week Test Results: Test results from this visit will be discussed in further detail at your follow- up appointment, if applicable. Proposed Discharge Date: 06/19/18
--- NOTE | 2018-06-19 11:58 | PCM.DC.SUM ---
Discharge Date and Diagnosis Date of Admission: 06/16/18 Date of Discharge: 06/19/18 - Primary Discharge Diagnosis Active and Suspected Problems 1. Acute sepsis secondary to acute hypoxic respiratory insufficiency as a result of left lower lobe community-acquired pneumonia and acute RSV B 2. Hypokalemia, resolved 3. Questionable new onset atrial fibrillation 4. Type 2 diabetes mellitus 5. Hypertension 6. History of abdominal aortic aneurysm status post repair 7. Chronic macrocytic anemia/iron deficiency anemia 8. Chronic kidney disease stage III - Secondary Discharge Diagnosis Chronic Problems Type 2 diabetes mellitus (Chronic) Skin cancer (Chronic) HTN (hypertension) (Chronic) Hospital Course and Treatment Imaging Results: Diagnostic Data Chest X-Ray 06/16/18 20:07 IMPRESSION: Ill-defined left lower lobe infiltrate. Degenerative changes of the thoracic spine. Calcified plaques of the aortic arch. Electronically Signed: Hola Crouch MD at 21:08 EST , Service support , Operations: None Procedures: 2-D Echocardiogram Summary of Care Provided: The patient is a 83 year old M admitted 06/16/2018 due to fever, productive cough, shortness of breath. 1. Acute sepsis secondary to acute hypoxic respiratory insufficiency as a result of left lower lobe community-acquired pneumonia and acute RSV B- Chest x-ray admission with left lower lobe infiltrate. Urine for strep and Legionella negative. Respiratory panel positive for RSV. Patient received IV azithromycin and Rocephin. Discharged on Levaquin 750 mg for 7 days. IV Solu-Medrol transition to prednisone taper at discharge. Albuterol inhaler as needed for shortness of breath/wheezing. Patient weaned off of supplemental oxygen. Walking pulse ox completed prior to discharge and patient did not require further supplement oxygen at rest or with ambulation. Follow-up with primary care physician in 1 week. 2. Questionable new onset atrial fibrillation-has remained sinus rhythm during admission. EKG on admission with questionable A. fib. TSH, Mg within normal limits. Echocardiogram showed an EF of 55%, stage I diastolic dysfunction, pulmonary artery systolic pressure 50 mmHg. 3. Type 2 diabetes mellitus-continue home metformin regimen. 4. Hypertension-on lisinopril, metoprolol, HCTZ, amlodipine. 5. Extensive tobacco use history, never evaluated for COPD-recommend outpatient follow-up. 6. History of abdominal aortic aneurysm status post repair 7. Chronic macrocytic anemia/iron deficiency anemia-stable. Initiated on iron supplementation. 8. Chronic kidney disease stage III-stable. General: Alert, Oriented x3, Cooperative HEENT: Atraumatic, PERRLA, EOMI, Normocephalic Oral: Moist mucosa Neck: Supple, No JVD, Negative Carotid Bruits Lungs: Diminished, Rhonchi, Wheezes Abdomen: Bowel Sounds Present, Soft, Non Tender, Non-Distended Extremities: No clubbing, No cyanosis, No edema, Capillary Refill Less than 3 Seconds Skin: No rashes, No breakdown Musculoskeletal: No Tenderness to Palpation of Joints or Extremities Neurological: Cranial nerves II-XII grossly intact, Neuro grossly intact Psych/Mental Status: Normal Affect, Appropriate Patient seen and examined prior to discharge. Physical assessment as noted above. Patient is stable for discharge with follow up recommendations as noted above. This patient was seen by LUCI Garza under the supervision of Dr. Flores. - Physical Exam Vital Signs Temp Pulse Resp BP Pulse Ox 97.4 F L 75 16 128/57 H 93 06/19/18 09:44 06/19/18 11:04 06/19/18 09:44 06/19/18 09:44 06/19/18 09:44 Oxygen Flow Rate (L/min) [ 2 AMBULATION with Oxygen] Oxygen Flow Rate (L/min) 3 Oxygen Delivery Method Room Air Weight: 222 lb 14.197 oz Body Mass Index (BMI) 31.9 Intake and Output for Last 24 Hours 06/17/18 06/18/18 06/19/18 23:59 23:59 23:59 Intake Total 2430 / 2430 1520 / 1520 156 / 156 Balance 2430 / 2430 1520 / 1520 156 / 156 Microbiology Past 72 Hours 06/18/18 17:11 Gram Stain - Final Sputum, Expectorated/Coughed 06/16/18 20:10 Blood Culture - Preliminary Blood Culture (Wb) - Left Wrist No growth in 48 hours. 06/16/18 20:25 Blood Culture - Preliminary Blood Culture (Wb) - Right Wrist No growth in 48 hours. 06/17/18 03:50 Urine Culture - Final Urine, Clean Catch Culture exhibits no growth. 06/17/18 01:00 Respiratory Panel (PCR) - Final Mucosa - Nose RSV B 06/17/18 03:50 Legionella Antigen - Final Urine, Clean Catch 06/17/18 03:50 Streptococcus pneumoniae Antigen (M - Final Urine, Clean Catch 06/16/18 21:00 Influenza Types A,B Direct FA (HARSHAL) - Final Mucosa - Nasopharyngeal Laboratory Tests Past 24 Hrs 06/19/18 05:39 Sodium 139 Potassium 4.0 Chloride 103 Carbon Dioxide 25.0 Anion Gap 11 BUN 27 H Creatinine 1.22 Estim Creat Clear Calc 46.54 Est GFR (MDRD) Af Amer 73 Est GFR (MDRD) Non-Af 60 BUN/Creatinine Ratio 22.1 H Glucose 197 H Calcium 8.6 POC Glucose 06/19/18 06/18/18 06/18/18 06:56 21:39 16:17 POC Glucose 173 H 275 H 290 H 06/18/18 12:39 POC Glucose 328 H Discharge Diet: 1800 Calorie Control Diet, Carb Control Diet Discharge Activity: Return to Normal Activity Call your doctor if you observe: Fever of 101 or Higher, Shortness of breath, Dizziness, Fainting spells, Chest pain Home Medications: Medications to take at Discharge Aspirin [Aspirin, Baby] 81 mg PO DAILY@0800 02/23/16 Hydrochlorothiazide [Hctz] 25 mg PO DAILY 02/23/16 Amlodipine [Norvasc] 10 mg PO DAILY 06/16/18 Aspirin 650 mg PO PRN PRN 06/16/18 Ipratropium [place] 0.06% [ATROVENT NASAL SPRAY] 2 spray NASAL BID 06/16/18 Lisinopril [Zestril] 40 mg PO DAILY 06/16/18 Metformin HCl 1,000 mg PO BIDCM 06/16/18 Metoprolol(XL)Succ [Toprol Xl (Beta Ayala)] 100 mg PO DAILY 06/16/18 Neomycin/Polymyxin B/Hydrocort [Wmpovugy-Ieoqesfpx-Pc Ear Soln] 3 drop EACH EAR QHS 06/16/18 Albuterol Inhaler [Ventolin Hfa] 1 - 2 puff INHALATION Q4H PRN PRN #1 inhaler 06/19/18 Ferrous Gluconate 324 mg PO BIDCM #60 tablet 06/19/18 Prednisone See Taper PO DAILY #30 tablet 06/19/18 levoFLOXacin tablet [Levaquin tablet] 750 mg PO DAILY #7 tablet 06/19/18 Following Prescrptions Were Given to Patient: Albuterol Inhaler [Ventolin Hfa] 1 - 2 puff INHALATION Q4H PRN PRN #1 inhaler PRN Reason: Shortness Of Breath levoFLOXacin tablet [Levaquin tablet] 750 mg PO DAILY #7 tablet Prednisone See Taper PO DAILY #30 tablet Ferrous Gluconate 324 mg PO BIDCM #60 tablet Primary Care Physician: Yair Hart MD [Primary Care Provider] - Please follow up with your Primary Care Physician in: 1 Week Disposition: Home Minutes spent on discharge:: 35 Patient Condition:: Stable Medical Necessity - Tobacco Use Smoking Status: Never smoker Meaningful Use Info Meaningful Use Diagnoses (Choose all that apply): None applicable
[2018-06-20 10:35] LABS: Vitamin B12 294 pg/mL (211-911)
--- NOTE | 2018-06-20 15:23 | CASEMGMT ---
LEXY ANDRE DC PHONE CALL DC DATE: 06/19/18 DC DISPOSITION: Home LACE/STRATA: 03/19 Intro role of CM to patient via home phone. Pt states he is doing well, no questions re: insurance, follow up. Has appt with PCP and anticipates will be able to have family drive him. Discussed [facility] delivery from [employer] and that [facility] is attempting to contact them. Pt states they can deliver anytime. -RN CM called to [employer]. They state they need to have copay prior to delivery. RN JES requested they contact pt SONNY as he is home and will be able to speak with them. Jerry WATERS RN ACM
== END 2018-06-19 13:05 | disposition home or self-care (01) | DRG 871 ==
LOC: ED 21:52 → PCU 22:03
PROVIDERS: Nurse Practitioner Family; Admitting Provider Hospitalist; Emergency Provider Emergency Medicine; Family Provider Internal Medicine; PCP Internal Medicine; Referring Provider Hospitalist; Visit Provider Family Medicine
DX: A41.9 Sepsis, unspecified organism (principal); J96.01 Acute respiratory failure with hypoxia; J18.9 Pneumonia, unspecified organism; E87.1 Hypo-osmolality and hyponatremia; I48.0 Paroxysmal atrial fibrillation; E87.6 Hypokalemia; D53.9 Nutritional anemia, unspecified; I12.9 Hypertensive chronic kidney disease with stage 1 through stage 4 chronic kidney disease, or unspecified chronic kidney disease; E11.22 Type 2 diabetes mellitus with diabetic chronic kidney disease; N18.3 Chronic kidney disease, stage 3 (moderate); E86.0 Dehydration; T50.2X5A Adverse effect of carbonic-anhydrase inhibitors, benzothiadiazides and other diuretics, initial encounter; B97.4 Respiratory syncytial virus as the cause of diseases classified elsewhere; Z87.891 Personal history of nicotine dependence; Z79.84 Long term (current) use of oral hypoglycemic drugs; Z86.79 Personal history of other diseases of the circulatory system
CPT/HCPCS: 36415; 36600; 71045; 80048; 80053; 81001; 82607; 82728; 82746; 82803; 82962; 83540; 83550; 83605; 83735; 84443; 84484; 85025; 85027; 85610; 85730; 87040; 87070; 87086; 87205; 87449; 87633; 87804; 93005; 93306; 94640; 94667; 94668; 97110; 97116; 97161; 97165; 97530; 97535; 99284; J7030; Q9957; A4216; C8929

== ENCOUNTER 2019-04-14 23:55 | Inpatient (IN) | payer MEDICARE, SELFPAY ==
[2018-06-16 22:49] VITALS: BMI 31.9
[2019-04-14 23:56] VITALS: BP 132/65; PULSE 96; RESP 20; TEMP 37.8; O2SAT 94; BMI 33.3
[2019-04-15] VITALS (47 sets, daily range): BP systolic 77–137; BP diastolic 50–90; PULSE 73–96; RESP 12–35; TEMP 36.7–37.8; O2SAT 86–99; BMI 33.9; BMI 34.0
--- NOTE | 2019-04-15 00:15 | EKG12_ITS ---
Test Reason : SOB Blood Pressure : / mmHG Vent. Rate : 087 BPM Atrial Rate : 087 BPM P-R Int : 166 ms QRS Dur : 092 ms QT Int : 350 ms P-R-T Axes : 003 003 005 degrees QTc Int : 421 ms Normal sinus rhythm Normal ECG Confirmed by YASEMIN BLACK, PREETI ([id number]), assistant production editor AC MONIQUE ([id number] on 04/17/2019 11:38:58 AM Referred By: Cristian Hazel Confirmed By:PREETI HAZEL MD
--- NOTE | 2019-04-15 00:16 | ED.VIS.GEN ---
History of Present Illness Chief Complaint: Fever Informant: Patient, Family, Tablet Technician Onset: Days - 4 Context: Gradual Onset Timing: Continuous Quality: weak/malaise Location: all over Current Severity: Moderate Maximum Severity: Moderate Worsened by: n/a Relieved by: n/a Associated Symptoms: mild sob. prod cough. weak. fever. Narrative: Patient states he has been feeling worse for the last 2 or so days, with the symptoms. No swelling in his legs that is new or different. Tonight he was so weak he had trouble getting help of his chair. He has not been seen by a doctor for this illness yet. History of pneumonia in the past, the last time he was diagnosed with it was 5 or 6 months ago. - Past Medical History (1) HTN (hypertension) Status: Chronic (2) Skin cancer Status: Resolved (3) Type 2 diabetes mellitus Status: Chronic (4) New onset atrial fibrillation Status: Suspected Past Medical History - Allergies and Home Meds Allergies/Adverse Reactions: Allergies No Known Allergies Allergy (Verified 04/14/19 23:56) Primary Care Physician: Yair Hart MD [Primary Care Provider] - Surgical History: - - knee surgery, bladder tumor removed, aortic aneurysm repair. Lives: Spouse/ Significant Other Smoking Status: Never smoker - Family History Maternal Family History: Reports: Cancer Paternal Family History: Reports: Heart Disease Review of Systems General: Reports: Fever, Malaise, Subjective. Denies: Chills, Sweats Eyes: Denies: Visual changes - bilaterally, Diplopia ENT: Denies: Rhinorrhea, Sore throat Cardiovascular: Denies: Chest pain, Palpitations Respiratory: Reports: Dyspnea, Cough, Sputum. Denies: Orthopnea Gastrointestinal: Reports: Nausea - earlier. resolved.. Denies: Abdominal pain, Vomiting, Diarrhea, Melena, Hematochezia Genitourinary: Denies: Dysuria, Hematuria, Frequency Musculoskeletal: Denies: Neck pain, Back pain, Extremity Pain Skin: Denies: Rash, Abscess, Wounds Neurological: Denies: Headache, Weakness, Numbness Physical Exam Vital Signs/Narrative: Vital Signs Temp Pulse Resp BP Pulse Ox 04/15/19 00:06 100.0 F H 89 25 H 132/65 H 94 04/14/19 23:56 100.0 F H 96 20 H 132/65 H 94 Inital Vital Signs reviewed: Yes General: Well nourished, Well developed, No Acute Distress Head: Normocephalic, Atraumatic Eyes: Perrl, EOMI ENT: Moist mucous membranes, No rhinorrhea, TM's clear. Negative for: Sinus tenderness Neck: Supple, Nontender, No lymphadenopathy Cardiovascular: Regular rate, Regular rhythm, No murmurs Respiratory: No distress, Chest nontender, Rales - left base, Rhonchi - left base. Negative for: Wheezing Abdomen: Soft, Nontender, Nondistended, Normal bowel sounds Back: Nontender, Normal Inspection. Negative for: CVA tenderness Extremities: Nontender, Edema - trace BLE. Negative for: Calf Tenderness Skin: Normal color, No rash, No Trauma Neurological: Alert, Oriented x3, Cranial nerves II-XII grossly intact, Normal Strength, Normal Sensation Psychological: Normal affect, Normal Mood Diagnostic/Tx/Re-eval Impressions Chest X-Ray 04/15/19 00:20 IMPRESSION: Lingular infiltrate with possible left lower lobe and right middle lobe infiltrates as described above. Electronically Signed: Cassidy Swain MD at 0:54 EST , Service support , 04/15/19 00:20 Chest 1 View (Portable) [RAD] Stat Laboratory Results 04/15/19 04/15/19 04/15/19 00:15 00:15 00:15 WBC 6.9 RBC 4.03 L Hgb 12.4 L Hct 38.1 L MCV 94.5 H MCH 30.8 MCHC 32.5 RDW Std Deviation 44.8 H RDW Coeff of James 13.1 Plt Count 194 MPV 9.7 Immature Gran % (Auto) BLOOD DONOR UNIT ASSISTANT Neut % (Auto) BLOOD DONOR UNIT ASSISTANT Lymph % (Auto) BLOOD DONOR UNIT ASSISTANT [place] % (Auto) BLOOD DONOR UNIT ASSISTANT Eos % (Auto) BLOOD DONOR UNIT ASSISTANT Baso % (Auto) BLOOD DONOR UNIT ASSISTANT Absolute Neuts (auto) 5.6 Absolute Lymphs (auto) 0.35 L Total Counted 100 Neutrophils % (Manual) 48 Band Neutrophils % 33 H Lymphocytes % (Manual) 5 L Monocytes % (Manual) 3 Metamyelocytes % 11 H Nucleated RBC % BLOOD DONOR UNIT ASSISTANT Diff Path Review May foll Platelet Estimate ADEQUATE RBC Morphology NORM C+C PT 13.2 INR 1.0 APTT 20.0 L Sodium 141 Potassium 3.9 Chloride 107 Carbon Dioxide 24.0 Anion Gap 10 BUN 33 H Creatinine 1.75 H Estim Creat Clear Calc 32.44 Est GFR (MDRD) Af Amer 48 L Est GFR (MDRD) Non-Af 40 L BUN/Creatinine Ratio 18.9 Glucose 196 H Lactic Acid Calcium 8.6 Total Bilirubin 0.50 AST 27 ALT 20 Alkaline Phosphatase 105 Troponin I < 0.015 Total Protein 6.9 Albumin 3.3 Globulin 3.6 Albumin/Globulin Ratio 0.9 04/15/19 00:15 WBC RBC Hgb Hct MCV MCH MCHC RDW Std Deviation RDW Coeff of James Plt Count MPV Immature Gran % (Auto) Neut % (Auto) Lymph % (Auto) [place] % (Auto) Eos % (Auto) Baso % (Auto) Absolute Neuts (auto) Absolute Lymphs (auto) Total Counted Neutrophils % (Manual) Band Neutrophils % Lymphocytes % (Manual) Monocytes % (Manual) Metamyelocytes % Nucleated RBC % Diff Path Review Platelet Estimate RBC Morphology PT INR APTT Sodium Potassium Chloride Carbon Dioxide Anion Gap BUN Creatinine Estim Creat Clear Calc Est GFR (MDRD) Af Amer Est GFR (MDRD) Non-Af BUN/Creatinine Ratio Glucose Lactic Acid 4.1 H* Calcium Total Bilirubin AST ALT Alkaline Phosphatase Troponin I Total Protein Albumin Globulin Albumin/Globulin Ratio - Rhythm Strip Rhythm Strip: Sinus Rhythm Rate: 80 Ectopy: None - EKG Initial EKG Interpretation: Sinus Rhythm, No Acute Injury Pattern - normal EKG - Medical Decision Making Patient's fever was treated. His hypoxemia was treated with oxygen. His dyspnea was treated with albuterol, he had some improvement. He is malaise, but clinically and hemodynamically stable. With his high lactate he qualifies for lactic shock although he has not been hypotensive or tachycardic. Given obligatory 30 cc/kg IV fluid bolus, as well as empiric Levaquin for what is clinically and radiographically pneumonia on the left. Will admit. Repeat focused assessment: Vital Signs 114/57; 85; 31; 94% VM 50%; T 100.0 Cardiopulmonary RRR, no tachycardia, no resp distress. rales/rhonchi left lung. Capillary Refill 2 sec Pulse 85, 2+/4 distal all 4 ext's Skin findings pink, warm, well-perfused w/o cyanosis - Critical Care Time Critical care time (excluding procedures): 30-74 minutes - 33 min, Including time spent:, Discussing w/Patient &/or Family/Manager Plan, Discussing w/Consultants, Arranging Admission or Transfer, Performing Direct Patient Care at Bedside ED Disposition - Plan for ED Patient: Disposition: Acute Care Hospital [facility] Diagnosis: Community acquired pneumonia, Hypoxemia, Septic shock Referrals: Yair Hart MD [Primary Care Provider] -
--- NOTE | 2019-04-15 00:20 | RAD_ITS ---
STUDY: X-RAY CHEST REASON FOR EXAM: Male, 83 years old. Fever, cough and shortness of breath. TECHNIQUE: Single AP portable view of the chest. COMPARISON: 06/16/2018. FINDINGS: There is large airspace opacity within the mid lower left lung field with obscuration of the left heart border compatible with lingular and possible left lower lobe pneumonia. There is partial obscuration of the hemidiaphragm. There is a second patchy opacity within the right lung base concerning for a second, smaller infiltrate. Remainder of the lungs are clear. There is no demonstrated pleural abnormality. Normal size heart. Normal mediastinum and bennett. Normal visualized pulmonary arteries. There is atherosclerotic calcification of the aortic arch with tortuosity. There are diffuse degenerative changes of the visualized thoracic spine. There is degenerative osteoarthritis of the bilateral shoulders. There is no demonstrated abnormality of the visualized soft tissue structures of the upper abdomen. RAD/Chest 1 View (Portable) IMPRESSION: Lingular infiltrate with possible left lower lobe and right middle lobe infiltrates as described above. Electronically Signed: Cassidy Swain MD at 0:54 EST , Service support ,
[2019-04-15 00:28] LABS: Hematocrit 38.1 % (40-54); Hemoglobin 12.4 g/dL (13.0-16.5); Mean Corp Hgb Conc 32.5 g/dL (32-36); Mean Corpuscular Hgb 30.8 pg (27.0-32.0); Mean Corpuscular Volume 94.5 fL (80-94); Mean Platelet Vol. 9.7 fl (6.2-12.0); POSITIVE COUNT YES; POSITIVE DIFFERENTIAL YES; POSITIVE MORPHOLOGY YES; Platelet Count 194 K/mm3 (150-450); RBC Distribution Width CV 13.1 % (11.6-14.6); RBC Distribution Width SD 44.8 fl (35.1-43.9); Red Blood Count 4.03 M/mm3 (4.6-6.2); White Blood Count 6.9 K/mm3 (4.4-11.0)
[2019-04-15 00:32] LABS: Prothrombin Time (Protime)PT. 13.2 SECONDS (11.7-14.9)
[2019-04-15] MEDS: Albuterol 2.5 MG/3 ML VIAL.NEB. INHALATION (00:32)
[2019-04-15] MEDS: 0.9% Normal Saline 1,000 ML 150 ML IV ×2 (00:42→04:29)
[2019-04-15] MEDS: Acetaminophen 325 MG Tablet 650 MG PO (00:42)
[2019-04-15 00:43] LABS: ALB/GLOB Ratio 0.9 RATIO (0.9-2.4); AST(SGOT) 27 U/L (15-37); Alanine Aminotransfer ALT/SGPT 20 U/L (16-61); Albumin, Serum 3.3 g/dL (3.2-5.0); Alkaline Phosphatase 105 U/L (45-117); Anion Gap 10 (5-15); BUN 33 mg/dL (7-18); BUN/Creat Ratio 18.9 RATIO (10-20); Calcium,Total 8.6 mg/dL (8.5-10.1); Chloride 107 mmol/L (98-107); Creatinine, Serum 1.75 mg/dL (0.70-1.30); EST Glomerular Filtration Rate 40 mL/min (>60); Est Glom Filt Rate - Afr Amer 48 mL/min (>60); Estimated Creatinine Clearance 32.44 ml/min; Globulin 3.6 g/dL (2.2-4.2); Glucose 196 mg/dL (74-106); Potassium 3.9 mmol/L (3.5-5.1); Protein, Total 6.9 g/dL (6.4-8.2); Sodium Level 141 mmol/L (136-145)
[2019-04-15 00:49] LABS: Scan Smear per Review Criteria MANUAL DIFF
[2019-04-15 00:50] LABS: Lactic Acid 4.1 mmol/L (0.4-2.0)
[2019-04-15 00:55] LABS: Lymphocyte 5 % (19-41); Metamyelocyte 11 % (0-1); Monocyte 3 % (0-10); Neutrophil-Band 33 % (0-5); Neutrophil-Segmented 48 % (47-70); Total Cells Counted 100 (MANUAL DIFF)
[2019-04-15 00:56] LABS: Differential Indicated MANUAL DIFF
[2019-04-15 00:57] LABS: Absolute Lymphocyte Count 0.35 X10^3/uL (0.83-4.51); Absolute Neutrophil Count 5.6 X10^3/uL (2.0-7.7); Lymphocyte # 0.35 X10^3/ul (4.0); Neutrophil # 5.59 X10^3/uL (2.7-7.7)
[2019-04-15 00:58] LABS: Platelet Estimate ADEQUATE (ADEQ); Red Cell Morphology NORM C+C NORMAL (NORM C&C)
[2019-04-15 01:08] LABS: Red Blood Cells-Urine 0 SEEN /hpf (0-5)
[2019-04-15 01:12] LABS: Color, Urine Yellow (Yellow); Glucose, Dipstick Normal (Normal); Ketone-Dipstick Negative (Negative); Leukocyte Esterase-Dipstick Negative /ul (Negative); Nitrite-Dipstick Negative (Negative); Occult Blood-Urine Negative /ul (Negative); Protein-Dipstick 15 mg/dl (Negative); Urine Bilirubin Dipstick Negative (Negative); Urine Clarity Clear (Clear); Urine Urobilinogen Normal (Normal)
[2019-04-15] MEDS: levoFLOXacin IV 750 MG/150 ML BAG 100 MG IV (01:12)
[2019-04-15] MEDS: 0.9% Normal Saline 1,000 ML 999 ML IV ×3 (01:17→03:23)
[2019-04-15 01:20] LABS: Bacteria RARE /hpf (None Seen); Mucous, Urine 1+ /hpf (<or=2+); Squamous Epithelial Cells - UA 0-5 SEEN /hpf (0-5); White Blood Cells 0-5 SEEN /hpf (0-5)
--- NOTE | 2019-04-15 01:23 | HP.PCM_ITS ---
Problem List (1) Septic shock Status: Acute (2) Type 2 diabetes mellitus Status: Chronic (3) Sepsis Status: Acute (4) Community acquired pneumonia Status: Acute (5) Hypoxemia Status: Acute (6) New onset atrial fibrillation Status: Suspected (7) HTN (hypertension) Status: Chronic History of Present Illness Date of Admission: 04/15/19 Chief Complaint: weakness The patient is a 83 year old M with a significant history of hypertension and prediabetes who presented to the emergency department with weakness. His symptoms started about 6 hours prior to presentation. Associated with symptoms is shortness of breath; anorexia; chills; wheezing; subjective fever; rigor; and a productive cough of white sputum. Also patient's family reported that patient looked flushed. At the emergency department patient had tachycardia; tachypnea and a fever. His lactic acid was 4.1. Patient was hypoxic and he required Venturi mask. Also patient's lactic acid was elevated at 4.1. Patient received IV fluid by septic shock protocol. Blood cultures were obtained. Chest x-ray was abnormal. Urinalysis was not remarkable. Patient was empirically started on antibiotics. Past Medical History Past Medical History (Chronic Problems): Chronic Problems Type 2 diabetes mellitus (Chronic) HTN (hypertension) (Chronic) Allergies No Known Allergies Allergy (Verified 04/14/19 23:56) Home Medications: Ambulatory Orders Medication Instructions Recorded Aspirin [Aspirin, Baby] 81 mg PO DAILY@0800 02/23/16 Hydrochlorothiazide [Hctz] 25 mg PO DAILY 02/23/16 Amlodipine [Norvasc] 10 mg PO DAILY 06/16/18 Aspirin 650 mg PO PRN PRN 06/16/18 Ipratropium [place] 0.06% 2 spray NASAL BID 06/16/18 [ATROVENT NASAL SPRAY] Lisinopril [Zestril] 40 mg PO DAILY 06/16/18 Metformin HCl 1,000 mg PO BIDCM 06/16/18 Metoprolol(XL)Succ [Toprol Xl 100 mg PO DAILY 06/16/18 (Beta Ayala)] Albuterol Inhaler [Ventolin Hfa] 1 - 2 puff INHALATION Q4H PRN PRN 06/19/18 #1 inhaler Ferrous Gluconate 324 mg PO BIDCM #60 tablet 06/19/18 Surgical History: - - knee surgery, bladder tumor removed, aortic aneurysm repair. Psychiatric History: No pertinent psych hx Lives: Spouse/ Significant Other Smoking Status: Former smoker Tobacco Use: Cigars - Sporadic. Last smoked between 1 to 5 years ago. - *Family History Maternal History Items: Cancer Paternal History Items: Heart Disease Review of Systems Constitutional: Reports: Anorexia, Chills, Fever, Malaise, Weakness, Fatigue. Denies: Weight Change HEENT: Denies: Head Aches, Sinus Congestion, Sinus Drainage Cardiovascular: Reports: Chest Pain. Denies: Palpitations Respiratory: Reports: Cough, Shortness of Breath, Sputum production Gastrointestinal: Denies: Abdominal Pain, Nausea, Vomiting Genitourinary: Denies: Dysuria Musculoskeletal: Denies: Joint Pain, Joint Tenderness Skin: Denies: Rash, Wounds Neurological: Denies: Numbness, Tingling, Focal weakness Psychiatric: Denies: Anxiety, Depression, Homicidal Ideations, Suicidal Ideations Hematologic/ Lymphatic: Denies: Easy Bruising, Easy Bleeding VTE Information - Inpt Only VTE Present on Admission: No VTE Mechan Device Prophylaxis: None VTE Pharm Prophylaxis ordered?: Yes Patient Problems: Active and Suspected Problems Septic shock (Acute) Sepsis (Acute) Community acquired pneumonia (Acute) Hypoxemia (Acute) - Physical Exam Vitals/I&O's: Vital Signs Temp Pulse Resp BP Pulse Ox 100.0 F H 85 31 H 114/57 L 95 04/15/19 00:49 04/15/19 00:49 04/15/19 00:49 04/15/19 00:49 04/15/19 01:04 Oxygen Flow Rate (L/min) 12 Oxygen Delivery Method Venturi Mask Weight: 105.3 kg Body Mass Index (BMI) 33.3 Intake and Output for Last 24 Hours 04/13/19 04/14/19 04/15/19 23:59 23:59 23:59 Intake Total 82.5 / 82.5 Balance 82.5 / 82.5 General: Alert, Oriented x3, Cooperative HEENT: Atraumatic, PERRLA, EOMI, Normocephalic Neck: Supple, No JVD Lungs: Rhonchi, Short of Breath, Tachypneic, Using Accessory Muscles, Wheezes Cardiovascular: Regular Rhythm, Normal S1, Normal S2, No murmurs, Tachycardic Abdomen: Bowel Sounds Present, Soft, Non Tender Extremities: No edema, Capillary Refill Less than 3 Seconds Skin: No rashes, No breakdown Musculoskeletal: No Tenderness to Palpation of Joints or Extremities Neurological: Cranial nerves II-XII grossly intact Psych/Mental Status: Normal Affect, Appropriate Laboratory Results 04/15/19 00:15: WBC 6.9, RBC 4.03 L, Hgb 12.4 L, Hct 38.1 L, MCV 94.5 H, MCH 30.8, MCHC 32.5, RDW Std Deviation 44.8 H, RDW Coeff of James 13.1, Plt Count 194, MPV 9.7, Immature Gran % (Auto) SNOWMOBILE MECHANIC, Neut % (Auto) SNOWMOBILE MECHANIC, Lymph % (Auto) SNOWMOBILE MECHANIC, [place] % (Auto) SNOWMOBILE MECHANIC, Eos % (Auto) SNOWMOBILE MECHANIC, Baso % (Auto) SNOWMOBILE MECHANIC, Absolute Neuts (auto) 5.6, Absolute Lymphs (auto) 0.35 L, Total Counted 100, Neutrophils % (Manual) 48, Band Neutrophils % 33 H, Lymphocytes % (Manual) 5 L, Monocytes % (Manual) 3, Metamyelocytes % 11 H, Nucleated RBC % SNOWMOBILE MECHANIC, Diff Path Review September, Platelet Estimate ADEQUATE, RBC Morphology NORM C+C 04/15/19 00:15: PT 13.2, INR 1.0, APTT 20.0 L 04/15/19 00:15: Sodium 141, Potassium 3.9, Chloride 107, Carbon Dioxide 24.0, Anion Gap 10, BUN 33 H, Creatinine 1.75 H, Estim Creat Clear Calc 32.44, Est GFR (MDRD) Af Amer 48 L, Est GFR (MDRD) Non-Af 40 L, BUN/Creatinine Ratio 18.9, Glucose 196 H, Calcium 8.6, Total Bilirubin 0.50, AST 27, ALT 20, Alkaline Phosphatase 105, Troponin I < 0.015, Total Protein 6.9, Albumin 3.3, Globulin 3.6, Albumin/Globulin Ratio 0.9 04/15/19 00:15: Lactic Acid 4.1 H* 04/15/19 01:05: Urine Color Yellow, Urine Clarity Clear, Urine pH 5.0, Ur Specific [place] 1.020, Urine Protein 15 H, Urine Glucose (UA) Normal, Urine Ketones Negative, Urine Occult Blood Negative, Urine Nitrite Negative, Urine Bilirubin Negative, Urine Urobilinogen Normal, Ur Leukocyte Esterase Negative, Urine RBC 0 SEEN, Urine WBC 0-5 SEEN, Ur Squamous Epith Cells 0-5 SEEN, Urine Bacteria RARE, Urine Mucus 1+ Current Medications Sodium Chloride () 1,000 mls @ 150 mls/hr IV .Q6H40M [facility] Last Infusion: 04/15/19 01:15 Dose: 0 mls/hr Documented by: Levofloxacin (Levaquin Iv) 750 mg in 150 mls @ 100 mls/hr IV X1 ONE Stop: 04/15/19 02:27 Last Admin: 04/15/19 01:12 Dose: 100 mls/hr Documented by: Sodium Chloride () 1,000 mls @ 999 mls/hr IV .Q1H1M [facility] Stop: 04/15/19 04:00 Last Admin: 04/15/19 01:17 Dose: 999 mls/hr Documented by: Assessment/Plan All Active Problems Septic shock (Acute) Sepsis (Acute) Community acquired pneumonia (Acute) Hypoxemia (Acute) Skin cancer (Resolved) The patient is a 83 year old M with a significant history of hypertension and prediabetes who presented to the emergency department with weakness; shortness of breath; anorexia; chills; wheezing; subjective fever; rigor; and a productive cough of white sputum; and found to have tachycardia; tachypnea; elevated lactic acid and abnormal chest x-ray consistent with septic shock secondary to community acquired pneumonia. Septic shock second committee acquired pneumonia Admit patient to intensive care unit. Sirs criteria: Heart rate of more than 90; respiratory rate of more than 20. Septic shock criteria: Lactic acid of 4.1. Of note patient takes metformin. Patient received normal saline bolus 30 ML per kilogram per septic shock protocol. And was then started on maintenance infusion at the emergency department. Continue patient on maintenance IV infusion. Trend lactic acid. Blood cultures were obtained at the emergency department; follow Patient was started on Levaquin at the emergency department. Will broaden antibiotics to ceftriaxone and azithromycin. Because of concomitant wheezing and severe pneumonia we will start patient on steroids. Received breathing treatment at the emergency department. Will put patient on scheduled DuoNeb and PRN albuterol. Patient was placed on Venturi mask. Continue Venturi mask. Respiratory to check on patient. While on Ventimask keep n.p.o. Consider Acapella and incentive spirometer of Ventimask. We will get strep pneumonia antigen and Legionella urine antigen. Sputum culture ordered. Trend CBC and BMP. Get MRSA nasal swab. We will consult lacquer shader to optimize management. Prediabetes On presentation his blood glucose was not within goal. Family reported patient is borderline diabetic. Would hold his metformin in the setting of lactic acidosis and sepsis. We will keep patient n.p.o. for now since he is on Venturi mask with increased work of breathing. When patient is no longer n.p.o. consider diabetic diet. JORGE on CKD stage III On presentation his creatinine was 1.75. Review of old records shows a creatinine baseline between 1.20-1.41. His BUN on presentation was 33. Highest previous BUN was 27. BUN over creatinine is 18.9. Etiology could be intrinsic renal from toxins secondary to sepsis. IV hydration as above. Trend BMP. Hold nephrotoxins. Home lisinopril and hydrochlorothiazide held. Avoid NSAIDs. Hypertension On presentation his blood pressure was within goal. Lisinopril and hydrochlorothiazide held secondary to JORGE. Other blood pressure medications metoprolol and amlodipine held because of septic shock. Of note patient does not have hypotension but he is at risk of hypotension. Consider resuming scheduled blood pressure medication when appropriate. In the meantime will put patient on labetalol as needed. Chest pain Initial troponin was negative. Trend troponin. DVT prophylaxis Subcutaneous Lovenox Code Visit Inpatient E&M: 09524 Init Hosp L3
--- NOTE | 2019-04-15 02:32 | SEPSISNOTE ---
Sepsis Note - Physical Exam/Vitals Subjective: Septic shock follow-up. Objective: Chest X-Ray 04/15/19 00:20 IMPRESSION: Lingular infiltrate with possible left lower lobe and right middle lobe infiltrates as described above. Electronically Signed: Cassidy Swain MD at 0:54 EST , Service support , Temp Pulse Resp BP Pulse Ox 99.1 F 85 30 H 123/60 H 94 04/15/19 02:28 04/15/19 02:28 04/15/19 02:28 04/15/19 02:28 04/15/19 02:28 04/15/19 04/15/19 04/15/19 01:05 00:15 00:15 WBC RBC Hgb Hct MCV MCH MCHC RDW Std Deviation RDW Coeff of James Plt Count MPV Immature Gran % (Auto) Neut % (Auto) Lymph % (Auto) [place] % (Auto) Eos % (Auto) Baso % (Auto) Absolute Neuts (auto) Absolute Lymphs (auto) Total Counted Neutrophils % (Manual) Band Neutrophils % Lymphocytes % (Manual) Monocytes % (Manual) Metamyelocytes % Nucleated RBC % Diff Path Review Platelet Estimate RBC Morphology PT INR APTT Sodium 141 Potassium 3.9 Chloride 107 Carbon Dioxide 24.0 Anion Gap 10 BUN 33 H Creatinine 1.75 H Estim Creat Clear Calc 32.44 Est GFR (MDRD) Af Amer 48 L Est GFR (MDRD) Non-Af 40 L BUN/Creatinine Ratio 18.9 Glucose 196 H Lactic Acid 4.1 H* Calcium 8.6 Total Bilirubin 0.50 AST 27 ALT 20 Alkaline Phosphatase 105 Troponin I < 0.015 Total Protein 6.9 Albumin 3.3 Globulin 3.6 Albumin/Globulin Ratio 0.9 Urine Color Yellow Urine Clarity Clear Urine pH 5.0 Ur Specific [place] 1.020 Urine Protein 15 H Urine Glucose (UA) Normal Urine Ketones Negative Urine Occult Blood Negative Urine Nitrite Negative Urine Bilirubin Negative Urine Urobilinogen Normal Ur Leukocyte Esterase Negative Urine RBC 0 SEEN Urine WBC 0-5 SEEN Ur Squamous Epith Cells 0-5 SEEN Urine Bacteria RARE Urine Mucus 1+ 04/15/19 04/15/19 00:15 00:15 WBC 6.9 RBC 4.03 L Hgb 12.4 L Hct 38.1 L MCV 94.5 H MCH 30.8 MCHC 32.5 RDW Std Deviation 44.8 H RDW Coeff of James 13.1 Plt Count 194 MPV 9.7 Immature Gran % (Auto) EMERGENCY MANAGEMENT SPECIALIST Neut % (Auto) EMERGENCY MANAGEMENT SPECIALIST Lymph % (Auto) EMERGENCY MANAGEMENT SPECIALIST [place] % (Auto) EMERGENCY MANAGEMENT SPECIALIST Eos % (Auto) EMERGENCY MANAGEMENT SPECIALIST Baso % (Auto) EMERGENCY MANAGEMENT SPECIALIST Absolute Neuts (auto) 5.6 Absolute Lymphs (auto) 0.35 L Total Counted 100 Neutrophils % (Manual) 48 Band Neutrophils % 33 H Lymphocytes % (Manual) 5 L Monocytes % (Manual) 3 Metamyelocytes % 11 H Nucleated RBC % EMERGENCY MANAGEMENT SPECIALIST Diff Path Review May foll Platelet Estimate ADEQUATE RBC Morphology NORM C+C PT 13.2 INR 1.0 APTT 20.0 L Sodium Potassium Chloride Carbon Dioxide Anion Gap BUN Creatinine Estim Creat Clear Calc Est GFR (MDRD) Af Amer Est GFR (MDRD) Non-Af BUN/Creatinine Ratio Glucose Lactic Acid Calcium Total Bilirubin AST ALT Alkaline Phosphatase Troponin I Total Protein Albumin Globulin Albumin/Globulin Ratio Urine Color Urine Clarity Urine pH Ur Specific [place] Urine Protein Urine Glucose (UA) Urine Ketones Urine Occult Blood Urine Nitrite Urine Bilirubin Urine Urobilinogen Ur Leukocyte Esterase Urine RBC Urine WBC Ur Squamous Epith Cells Urine Bacteria Urine Mucus General: Alert, Oriented x3, Cooperative Lungs: Rhonchi, Short of Breath, Using Accessory Muscles, Wheezes Cardiovascular: Normal S1, Normal S2, No murmurs, Tachycardic Capillary Refill: <3 seconds Peripheral Pulses: Normal Skin Color: [place]putanta - Assessment/Plan Lactic acid was elevated in the emergency department trend. Received normal saline 30 mm's per kilogram bolus per septic shock protocol; that was started on maintenance IV infusion. Continue patient on maintenance IV infusion. Blood cultures and urine cultures were obtained at the emergency department; follow. Patient was started on broad-spectrum antibiotics of Levaquin in the emergency department. Inpatient ceftriaxone and azithromycin was ordered. Upon nurses reported increasing respiratory distress and persistent adventitious lung sounds. Lactic acid has rather increased from 4.1 to 5. Patient required BiPAP. Will broaden antibiotics to vancomycin and Zosyn at this time.
[2019-04-15 04:05] LABS: Hematocrit 33.9 % (40-54); Hemoglobin 10.7 g/dL (13.0-16.5); Mean Corp Hgb Conc 31.6 g/dL (32-36); Mean Corpuscular Hgb 30.2 pg (27.0-32.0); Mean Corpuscular Volume 95.8 fL (80-94); Mean Platelet Vol. 9.1 fl (6.2-12.0); Platelet Count 168 K/mm3 (150-450); RBC Distribution Width CV 13.1 % (11.6-14.6); RBC Distribution Width SD 46.5 fl (35.1-43.9); Red Blood Count 3.54 M/mm3 (4.6-6.2); White Blood Count 6.2 K/mm3 (4.4-11.0)
[2019-04-15 04:21] LABS: Anion Gap 11 (5-15); BUN 30 mg/dL (7-18); Calcium,Total 7.4 mg/dL (8.5-10.1); Chloride 110 mmol/L (98-107); Creatinine, Serum 1.58 mg/dL (0.70-1.30); EST Glomerular Filtration Rate 45 mL/min (>60); Est Glom Filt Rate - Afr Amer 54 mL/min (>60); Glucose 167 mg/dL (74-106); Potassium 3.3 mmol/L (3.5-5.1); Sodium Level 143 mmol/L (136-145)
[2019-04-15 04:22] LABS: Reflex Lactate? Y
[2019-04-15] MEDS: 0.9% Normal Saline 1,000 ML 100 ML IV ×2 (04:44→14:47)
[2019-04-15 05:16] LABS: Allen Test POS; Base Excess -6 mmol/L (-2 to +2); Bicarbonate 19.5 mmol/L (22-26); Blood Gas Specimen Type ART; EPAP 5; FI02 50; IPAP 12; PO2 64 mmHG (75-100); RR 12; SITE L Radial; SO2 91 % (95-99); Time Given 500; Total Carbon Dioxide 21 mmol/L; pCO2 35.8 mmHg (35-45); pH 7.35 (7.35-7.45)
[2019-04-15 05:49] LABS: M R Staph aureus DNA By PCR Negative (Negative); Probe Check PASS; Specimen Processing Control PASS
--- NOTE | 2019-04-15 05:58 | PCM.RX.CS ---
Consult Pharmacy has been consulted to manage selected antiobiotic: Vancomycin Type of Consult: New start Suspected Infection: Sepsis, Pneumonia Prior Doses of Antibiotics Received/Current Regimen: Medications Vancomycin HCl 1,500 mg/ (Sodium Chloride) 530 mls @ 250 mls/hr IV Q24H CORI Vancomycin HCl 1,500 mg/ (Sodium Chloride) 530 mls @ 250 mls/hr IV X1 ONE Stop: 04/15/19 07:37 Last Admin: 04/15/19 05:52 Dose: 250 mls/hr Labs: Sodium 143 mmol/L (136-145) 04/15/19 03:55 Potassium 3.3 mmol/L (3.5-5.1) L 04/15/19 03:55 Chloride 110 mmol/L (98-107) H 04/15/19 03:55 Carbon Dioxide 22.0 mmol/L (21.0-32.0) 04/15/19 03:55 Anion Gap 11 (5-15) 04/15/19 03:55 BUN 30 mg/dL (7-18) H 04/15/19 03:55 Creatinine 1.58 mg/dL (0.70-1.30) H 04/15/19 03:55 Est GFR (MDRD) Af Amer 54 mL/min (>60) L 04/15/19 03:55 Est GFR (MDRD) Non-Af 45 mL/min (>60) L 04/15/19 03:55 BUN/Creatinine Ratio 19.0 RATIO (10-20) 04/15/19 03:55 Glucose 167 mg/dL (74-106) H 04/15/19 03:55 Microbiology: Microbiology 04/15/19 01:05 Urine, Random Streptococcus pneumoniae Antigen (M - Final Streptococcus pneumonia Ag Weight used for dosin.3 kg Estimated Creatinine Clearance: 34.8 Goal Trough: 15-20 mcg/mL Pharmacy Plan for Drug Dosing: Pharmacy Service will continue to monitor and adjust dosing as required. Follow-Up Labs: Trough Vancomycin Labs to be done on [date and time ordered]: 04/17/19 @3307
[2019-04-15 06:21] LABS: Bedside Glucose 197 mg/dL (70-110)
[2019-04-15] MEDS: Insulin Lispro 100 UNIT/ML INSULN.PEN SC ×4 (06:21→23:17)
[2019-04-15] MEDS: Potassium Chloride 10mEq/100mL 10 MEQ/100 ML IV.SOLN. 100 MEQ IV BOLUS ×4 (06:37→09:36)
[2019-04-15] MEDS: Ipratropium/Albuterol Sulfate 3 ML AMPUL.NEB INHALATION ×4 (07:09→19:42)
--- NOTE | 2019-04-15 07:42 | PCM.PN.HOSP ---
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 In summary, this 83-year-old gentleman with multiple comorbidities including type 2 diabetes mellitus, hypertension was admitted through ER for 4-day history of fever, shortness of breath, productive cough mucus but he got more symptomatic in the last 2 days. Patient further said he has on and off cough for few months and had pneumonia about 5 to 6 months ago. Patient also complained of left-sided pleuritic chest pain on coughing which has improved since admission. Chest x-ray shows lingular infiltrate. Patient was managed on septic shock protocol because significant bandemia, elevated creatinine 1.7 and lactic acidosis 4.1. Patient was admitted in ICU. In ICU, patient reports improvement in shortness of breath and pleuritic chest pain. Blood pressure on lower side 87/52 although it was 132/65 in ER. Pulse ox 91% on 50% BiPAP Vitals/I&O's: Vital Signs Temp Pulse Resp BP Pulse Ox 99.9 F H 76 28 H 87/52 L 91 04/15/19 03:45 04/15/19 07:39 04/15/19 07:00 04/15/19 07:00 04/15/19 07:00 Oxygen Flow Rate (L/min) 12 Oxygen Delivery Method Bi-pap Weight: 229 lb 15.074 oz Body Mass Index (BMI) 33.9 Intake and Output for Last 24 Hours 04/13/19 04/14/19 04/15/19 23:59 23:59 23:59 Intake Total 3962.75 / 3962.75 Output Total 0 / 0 Balance 3962.75 / 3962.75 General: Alert, Oriented x3, Cooperative HEENT: Atraumatic, PERRLA, EOMI, Normocephalic, - - Hard of hearing Oral: - - on Bipap Neck: Supple, No JVD, Negative Carotid Bruits Lungs: Diminished, Rhonchi, Short of Breath, Tachypneic, - - On Bipap Cardiovascular: Regular rate, Regular Rhythm, Normal S1, Normal S2, No murmurs Abdomen: Bowel Sounds Present, Soft, Non Tender, Non-Distended Extremities: Capillary Refill Less than 3 Seconds, Edema - Subtle ankle edema Skin: No rashes, No breakdown Musculoskeletal: No Tenderness to Palpation of Joints or Extremities, Arthritic Changes Neurological: Cranial nerves II-XII grossly intact, Deep Tendon Reflexes 2+/4 and Symmetrical, Neuro grossly intact Microbiology Past 72 Hours 04/15/19 01:05 Urine, Random Streptococcus pneumoniae Antigen (M - Final Streptococcus pneumonia Ag Laboratory Results 04/15/19 00:15: WBC 6.9, RBC 4.03 L, Hgb 12.4 L, Hct 38.1 L, MCV 94.5 H, MCH 30.8, MCHC 32.5, RDW Std Deviation 44.8 H, RDW Coeff of James 13.1, Plt Count 194, MPV 9.7, Immature Gran % (Auto) CLINICAL QUALITY ASSURANCE ASSOCIATE, Neut % (Auto) CLINICAL QUALITY ASSURANCE ASSOCIATE, Lymph % (Auto) CLINICAL QUALITY ASSURANCE ASSOCIATE, [place] % (Auto) CLINICAL QUALITY ASSURANCE ASSOCIATE, Eos % (Auto) CLINICAL QUALITY ASSURANCE ASSOCIATE, Baso % (Auto) CLINICAL QUALITY ASSURANCE ASSOCIATE, Absolute Neuts (auto) 5.6, Absolute Lymphs (auto) 0.35 L, Total Counted 100, Neutrophils % (Manual) 48, Band Neutrophils % 33 H, Lymphocytes % (Manual) 5 L, Monocytes % (Manual) 3, Metamyelocytes % 11 H, Nucleated RBC % CLINICAL QUALITY ASSURANCE ASSOCIATE, Diff Path Review September, Platelet Estimate ADEQUATE, RBC Morphology NORM C+C 04/15/19 00:15: PT 13.2, INR 1.0, APTT 20.0 L 04/15/19 00:15: Sodium 141, Potassium 3.9, Chloride 107, Carbon Dioxide 24.0, Anion Gap 10, BUN 33 H, Creatinine 1.75 H, Estim Creat Clear Calc 32.44, Est GFR (MDRD) Af Amer 48 L, Est GFR (MDRD) Non-Af 40 L, BUN/Creatinine Ratio 18.9, Glucose 196 H, Calcium 8.6, Total Bilirubin 0.50, AST 27, ALT 20, Alkaline Phosphatase 105, Troponin I < 0.015, Total Protein 6.9, Albumin 3.3, Globulin 3.6, Albumin/Globulin Ratio 0.9 04/15/19 00:15: Lactic Acid 4.1 H* 04/15/19 01:05: Urine Color Yellow, Urine Clarity Clear, Urine pH 5.0, Ur Specific [place] 1.020, Urine Protein 15 H, Urine Glucose (UA) Normal, Urine Ketones Negative, Urine Occult Blood Negative, Urine Nitrite Negative, Urine Bilirubin Negative, Urine Urobilinogen Normal, Ur Leukocyte Esterase Negative, Urine RBC 0 SEEN, Urine WBC 0-5 SEEN, Ur Squamous Epith Cells 0-5 SEEN, Urine Bacteria RARE, Urine Mucus 1+ 04/15/19 03:52: MRSA (PCR) Negative 04/15/19 03:55: Legionella pneumophila Ab Pending, Mycoplasma pneumon IgG Pending, Mycoplasma pneumon IgM Pending 04/15/19 03:55: WBC 6.2, RBC 3.54 L, Hgb 10.7 L, Hct 33.9 L, MCV 95.8 H, MCH 30.2, MCHC 31.6 L, RDW Std Deviation 46.5 H, RDW Coeff of James 13.1, Plt Count 168, MPV 9.1 04/15/19 03:55: Sodium 143, Potassium 3.3 L, Chloride 110 H, Carbon Dioxide 22.0, Anion Gap 11, BUN 30 H, Creatinine 1.58 H, Estim Creat Clear Calc 34.80, Est GFR (MDRD) Af Amer 54 L, Est GFR (MDRD) Non-Af 45 L, BUN/Creatinine Ratio 19.0, Glucose 167 H, Calcium 7.4 L 04/15/19 03:55: Lactic Acid 5.0 H* 04/15/19 03:55: Troponin I < 0.015 04/15/19 05:07: Specimen Type ART, Sample Site L Radial, pH 7.35, Bicarbonate Actual 19.5 L, POC Total CO2 21, Base Excess -6 L, O2 Saturation 91 L, O2 % 50, ABG pCO2 35.8, ABG pO2 64 L, Isidro Test POS, Respiration Rate 12, O2 Delivery Device Bi / C PAP, EPAP 5, IPAP 12, Blood Gas Notified Whom HOSP , Blood Gas Notified Time 500 04/15/19 06:17: POC Glucose 197 H Current Medications Acetaminophen (Tylenol) 650 mg PO Q6H PRN PRN PRN Reason: Pain Score 1-10/Temp > 100.7 F Albuterol Sulfate (Ventolin Aerosols) 2.5 mg INHALATION Q2H PRN PRN PRN Reason: SOB/Wheezing Albuterol/Ipratropium (Duoneb) 3 ml INHALATION Q4HWA.RT CORI Last Admin: 04/15/19 07:09 Dose: 3 ml Documented by: Aspirin (Aspirin, Baby) 81 mg PO DAILY@0800 [facility] Dextrose (D50w Syringe) 0 gm IV X1 PRN; Protocol PRN Reason: Hypoglycemia Enoxaparin Sodium (Lovenox) 40 mg SC DAILY CORI Glucagon () 1 mg IM .X1 PRN PRN Reason: Hypoglycemia Sodium Chloride () 1,000 mls @ 100 mls/hr IV .Q10H [facility] Stop: 04/15/19 23:27 Last Infusion: 04/15/19 05:42 Dose: 100 mls/hr Documented by: Sodium Chloride () 250 mls @ 15 mls/hr IV .[id number] PRN PRN Reason: Saline Flush Last Infusion: 04/15/19 05:53 Dose: 0 mls/hr Documented by: Piperacillin Sod/Tazobactam (Sod 3.375 gm/ Sodium Chloride) 50 mls @ 12.5 mls/hr IV Q8 [facility] Last Admin: 04/15/19 05:52 Dose: 12.5 mls/hr Documented by: Vancomycin IV Pharmacy to Dose (1,500 ea/ Sodium Chloride) 500 mls @ 250 mls/hr IV PRN PRN; Protocol Vancomycin HCl 1,500 mg/ (Sodium Chloride) 530 mls @ 250 mls/hr IV Q24H [facility] Potassium Chloride () 10 meq in 100 mls @ 100 mls/hr IV BOLUS Q1H [facility] Stop: 04/15/19 09:59 Last Admin: 04/15/19 07:33 Dose: 100 mls/hr Documented by: Insulin Human Lispro (Humalog Kwikpen (Bkc)) 0 unit SC Q6 CORI; Protocol Last Admin: 04/15/19 06:21 Dose: 1 unit Documented by: Labetalol HCl (Trandate) 10 mg IV Q4H PRN PRN PRN Reason: SBP > 160 Melatonin (Melatonin) 3 mg PO QHS PRN PRN PRN Reason: INSOMNIA Methylprednisolone (Solu-Medrol) 40 mg IV Q8 [facility] Last Admin: 04/15/19 04:32 Dose: 40 mg Documented by: Ondansetron HCl (Zofran) 4 mg IV Q8H PRN PRN PRN Reason: NAUSEA/VOMITING Senna/Docusate Sodium (Senokot-S, Estefany-Colace) 2 tablet PO BID PRN PRN PRN Reason: Constipation Sodium Chloride () 10 - 40 ml IV UD PRN PRN Reason: SALINE FLUSH STROKE Vital Signs/Narrative: Vital Signs Temp Pulse Resp BP BP Pulse Ox 04/15/19 07:39 76 04/15/19 07:00 73 28 H 87/52 L 91 04/15/19 06:00 76 30 H 77/52 L 92 04/15/19 05:00 80 29 H 90/50 L 94 04/15/19 04:50 84 32 H 91 04/15/19 04:30 86 32 H 92/56 L 86 04/15/19 04:25 88 04/15/19 04:15 86 23 H 99/74 89 04/15/19 04:00 86 25 H 117/59 L 91 04/15/19 03:45 99.9 F H 86 22 H 115/89 H 93 04/15/19 03:43 87 Medical Necessity - Tobacco Use Smoking Status: Former smoker Tobacco Use: Cigars - Sporadic. Last smoked between 1 to 5 years ago. Assessment/Plan All Active Problems Septic shock (Acute) Acute respiratory failure with hypoxia (Acute) Sepsis (Acute) Community acquired pneumonia (Acute) Hypoxemia (Acute) Skin cancer (Resolved) This 83-year-old gentleman with multiple comorbidities including type 2 diabetes mellitus, AND hypertension was admitted through ER for 4-day history of fever, shortness of breath, productive cough mucus but he got more symptomatic in the last 2 days. Patient further said he has on and off cough for few months and had pneumonia about 5 to 6 months ago. Chest x-ray shows lingular infiltrate right middle lobe infiltrate. Patient was managed on septic shock protocol because significant bandemia, elevated creatinine 1.7 and lactic acidosis 4.1. Patient was admitted in ICU. In ICU, patient reports improvement in shortness of breath and pleuritic chest pain. Blood pressure on lower side 87/52 although it was 132/65 in ER. Pulse ox 91% on 50% BiPAP 1. Septic shock secondary to pneumococcal pneumonia: Urinary antigen is positive of strep pneumonia. Initially patient was started on vancomycin and Zosyn. Vancomycin discontinued. Discussed with vice president payer. Blood pressure borderline low. Patient is hesitant about central line therefore PICC line was ordered. Cultures x2 are pending. 2. Acute hypoxic respiratory failure secondary to pneumococcal pneumonia: ABG was done. 7.35/35/64 on 12/550% FiO2 consistent with acute hypoxic respiratory failure. K3.3, bicarb 22, anion gap 11. Hypokalemia mild, replaced. 3. Acute kidney injury on chronic kidney disease stage III: Patient has slow increase in BUN and creatinine since June 2018. BUN/creatinine 23/1.4 in June 2018. BUN/Creatinine 30/5.8. Patient has mild ankle edema. At home patient is on metformin, amlodipine, metoprolol, lisinopril and HCTZ. Nephrotoxic medications are held. 4. Diabetes mellitus type 2: Accu-Chek with Humalog sliding scale. A1c tomorrow a.m. 5. Chronic diastolic heart failure/pulmonary hypertension: Patient had echo done in May 2018. Reported as EF 55% with normal LV systolic function. Stage I diastolic dysfunction. RVSP 50 mmHg consistent with mild to moderate pulmonary hypertension. EKG normal sinus rhythm. 6. Other multiple comorbidities include hypertension, mixed chronic microcytic anemia/iron deficiency anemia: Multiple comorbidities complicates the present care and expect difficult and delay recovery DVT prophylaxis: On Lovenox 40 mg subcu daily. Discontinue if platelet count drops less than 50,000 or hemoglobin less than 8 g% Microbiology Past 72 Hours 04/15/19 01:05 Urine, Random Streptococcus pneumoniae Antigen (M - Final Streptococcus pneumonia Ag Laboratory Results 04/15/19 00:15: WBC 6.9, RBC 4.03 L, Hgb 12.4 L, Hct 38.1 L, MCV 94.5 H, MCH 30.8, MCHC 32.5, RDW Std Deviation 44.8 H, RDW Coeff of James 13.1, Plt Count 194, MPV 9.7, Immature Gran % (Auto) CLINICAL QUALITY ASSURANCE ASSOCIATE, Neut % (Auto) CLINICAL QUALITY ASSURANCE ASSOCIATE, Lymph % (Auto) CLINICAL QUALITY ASSURANCE ASSOCIATE, [place] % (Auto) CLINICAL QUALITY ASSURANCE ASSOCIATE, Eos % (Auto) CLINICAL QUALITY ASSURANCE ASSOCIATE, Baso % (Auto) CLINICAL QUALITY ASSURANCE ASSOCIATE, Absolute Neuts (auto) 5.6, Absolute Lymphs (auto) 0.35 L, Total Counted 100, Neutrophils % (Manual) 48, Band Neutrophils % 33 H, Lymphocytes % (Manual) 5 L, Monocytes % (Manual) 3, Metamyelocytes % 11 H, Nucleated RBC % CLINICAL QUALITY ASSURANCE ASSOCIATE, Diff Path Review May foll, Platelet Estimate ADEQUATE, RBC Morphology NORM C+C 04/15/19 00:15: PT 13.2, INR 1.0, APTT 20.0 L 04/15/19 00:15: Sodium 141, Potassium 3.9, Chloride 107, Carbon Dioxide 24.0, Anion Gap 10, BUN 33 H, Creatinine 1.75 H, Estim Creat Clear Calc 32.44, Est GFR (MDRD) Af Amer 48 L, Est GFR (MDRD) Non-Af 40 L, BUN/Creatinine Ratio 18.9, Glucose 196 H, Calcium 8.6, Total Bilirubin 0.50, AST 27, ALT 20, Alkaline Phosphatase 105, Troponin I < 0.015, Total Protein 6.9, Albumin 3.3, Globulin 3.6, Albumin/Globulin Ratio 0.9 04/15/19 00:15: Lactic Acid 4.1 H* 04/15/19 01:05: Urine Color Yellow, Urine Clarity Clear, Urine pH 5.0, Ur Specific [place] 1.020, Urine Protein 15 H, Urine Glucose (UA) Normal, Urine Ketones Negative, Urine Occult Blood Negative, Urine Nitrite Negative, Urine Bilirubin Negative, Urine Urobilinogen Normal, Ur Leukocyte Esterase Negative, Urine RBC 0 SEEN, Urine WBC 0-5 SEEN, Ur Squamous Epith Cells 0-5 SEEN, Urine Bacteria RARE, Urine Mucus 1+ 04/15/19 03:52: MRSA (PCR) Negative 04/15/19 03:55: Legionella pneumophila Ab Pending, Mycoplasma pneumon IgG Pending, Mycoplasma pneumon IgM Pending 04/15/19 03:55: WBC 6.2, RBC 3.54 L, Hgb 10.7 L, Hct 33.9 L, MCV 95.8 H, MCH 30.2, MCHC 31.6 L, RDW Std Deviation 46.5 H, RDW Coeff of James 13.1, Plt Count 168, MPV 9.1 04/15/19 03:55: Sodium 143, Potassium 3.3 L, Chloride 110 H, Carbon Dioxide 22.0, Anion Gap 11, BUN 30 H, Creatinine 1.58 H, Estim Creat Clear Calc 34.80, Est GFR (MDRD) Af Amer 54 L, Est GFR (MDRD) Non-Af 45 L, BUN/Creatinine Ratio 19.0, Glucose 167 H, Calcium 7.4 L 04/15/19 03:55: Lactic Acid 5.0 H* 04/15/19 03:55: Troponin I < 0.015 04/15/19 05:07: Specimen Type ART, Sample Site L Radial, pH 7.35, Bicarbonate Actual 19.5 L, POC Total CO2 21, Base Excess -6 L, O2 Saturation 91 L, O2 % 50, ABG pCO2 35.8, ABG pO2 64 L, Isidro Test POS, Respiration Rate 12, O2 Delivery Device Bi / C PAP, EPAP 5, IPAP 12, Blood Gas Notified Whom CORNELL BLACK, Blood Gas Notified Time 500 04/15/19 06:17: POC Glucose 197 H Clinical Impression(s) from Imaging Studies Chest X-Ray 04/15/19 00:20 IMPRESSION: Lingular infiltrate with possible left lower lobe and right middle lobe infiltrates as described above.
--- NOTE | 2019-04-15 08:07 | PCM.CON.CC ---
Problem List (1) Acute respiratory failure with hypoxia Status: Acute (2) Septic shock Status: Acute (3) Type 2 diabetes mellitus Status: Chronic Qualifiers: Diabetes mellitus intermediate card tender insulin use: without intermediate card tender use Diabetes mellitus complication status: with circulatory complication Diabetes mellitus complication detail: with other circulatory complications Qualified Code(s): E11.59 - Type 2 diabetes mellitus with other circulatory complications (4) Community acquired pneumonia Status: Acute (5) New onset atrial fibrillation Status: Suspected (6) Skin cancer Status: Resolved (7) HTN (hypertension) Status: Chronic Reason for Consult Date of Consultation: 04/15/19 Reason for Consultation: Septic shock and respiratory failure History of Present Illness: The patient is a 83 year old M, with past medical history listed below, who presented to [facility] on 04/15/2019 secondary to a 4-day history of fever, shortness of breath and a productive cough. Patient reportedly had become weaker over the past 2 or so days. Patient had gotten to the point where he was unable to get out of his chair, so EMS was called for the patient to come to the ER for evaluation. Patient reportedly has had pneumonia in the past was diagnosed with it 5 to 6 months ago. Patient had not been seen by his primary care physician prior to transport to the ER. On arrival to the ER, patient was noted to require a 50% Ventimask to maintain saturations. Patient was treated with albuterol and reported some improvement. Patient was given 30 cc/kg IV fluids secondary to hypotension. Laboratory work-up showed a significant bandemia, elevated creatinine at 1.75 and an elevated lactate of 4.1. Patient was admitted to the intensive care unit for further evaluation. Since being in the intensive care unit, patient did have to be transition to BiPAP therapy secondary to hypoxia. Patient reports some improvement in dyspnea with BiPAP therapy. Patient reportedly does not use supplemental oxygen at baseline. Patient denies any history of previous respiratory problems outside of recurrent pneumonias. Patient denied any current chest pain, abdominal pain, nausea or vomiting during my evaluation. Since being in the intensive care unit, patient has come back positive for pneumococcal antigen. Did discuss with the patient about a central line and intubation. Patient is very nervous about both of them. Per the nursing staff, patient appears to be hypervigilant about needles. Review of systems otherwise negative from a constitutional, HEENT, respiratory, cardiovascular, GI, genitourinary, musculoskeletal, skin, neurologic, psychiatric and hematologic system unless stated above. Past Medical History Past Medical History (Chronic Problems): Chronic Problems Type 2 diabetes mellitus (Chronic) HTN (hypertension) (Chronic) Allergies No Known Allergies Allergy (Verified 04/14/19 23:56) Home Medications: Ambulatory Orders Medication Instructions Recorded Aspirin [Aspirin, Baby] 81 mg PO DAILY@0800 02/23/16 Hydrochlorothiazide [Hctz] 25 mg PO DAILY 02/23/16 Amlodipine [Norvasc] 10 mg PO DAILY 06/16/18 Aspirin 650 mg PO PRN PRN 06/16/18 Ipratropium [place] 0.06% 2 spray NASAL BID 06/16/18 [ATROVENT NASAL SPRAY] Lisinopril [Zestril] 40 mg PO DAILY 06/16/18 Metformin HCl 1,000 mg PO BIDCM 06/16/18 Metoprolol(XL)Succ [Toprol Xl 100 mg PO DAILY 06/16/18 (Beta Ayala)] Albuterol Inhaler [Ventolin Hfa] 1 - 2 puff INHALATION Q4H PRN PRN 06/19/18 #1 inhaler Ferrous Gluconate 324 mg PO BIDCM #60 tablet 06/19/18 Surgical History: - - knee surgery, bladder tumor removed, aortic aneurysm repair. Psychiatric History: No pertinent psych hx Lives: Spouse/ Significant Other Smoking Status: Former smoker Tobacco Use: Cigars - Sporadic. Last smoked between 1 to 5 years ago. - *Family History Maternal History Items: Cancer Paternal History Items: Heart Disease Review of Systems Comment: See HPI Patient Problems: Active and Suspected Problems Septic shock (Acute) Acute respiratory failure with hypoxia (Acute) Sepsis (Acute) Community acquired pneumonia (Acute) Hypoxemia (Acute) Objective: All imaging was personally reviewed. Patient has a significant left lower lobe and lingular infiltrate noted. Patient does have an echocardiogram from May 2018 showing an EF of 55% with stage I diastolic dysfunction, mild to moderate tricuspid valve insufficiency with pulmonary artery pressures of 50 mmHg and a mildly enlarged left atrium. - Physical Exam Vitals/I&O's: Vital Signs Temp Pulse Resp BP Pulse Ox 37.7 C H 76 31 H 87/52 L 91 04/15/19 03:45 04/15/19 07:39 04/15/19 07:09 04/15/19 07:00 04/15/19 07:09 Oxygen Flow Rate (L/min) 12 Oxygen Delivery Method Bi-pap Weight: 104.3 kg Body Mass Index (BMI) 33.9 Intake and Output for Last 24 Hours 04/13/19 04/14/19 04/15/19 23:59 23:59 23:59 Intake Total 4492.75 / 4492.75 Output Total 0 / 0 Balance 4492.75 / 4492.75 General: Alert, Oriented x3, Cooperative, - - Conversational dyspnea noted. Obese. Appears stated age. HEENT: Atraumatic, PERRLA, EOMI, Normocephalic, - - No scleral icterus or injection noted Oral: No Gingival or Mucosal Lesions/ Ulcerations, Dry Mucosa Neck: Supple, No Nodes, Trachea Midline, JVD, Right Lungs: No wheeze, No rales, Diminished, Rhonchi - Left base, - - Symmetric expansion. Cardiovascular: Regular rate, Regular Rhythm, Normal S1, Normal S2, No murmurs, No rub noted, No Gallop, - - Sinus rhythm with PACs on telemetry Abdomen: Bowel Sounds Present, Soft, Non Tender, Non-Distended Extremities: No clubbing, No cyanosis, Edema - Trace Skin: No rashes, No breakdown Musculoskeletal: No Tenderness to Palpation of Joints or Extremities Lymphatic: No Cervical, Supraclavicular, or Inguinal Adenopathy Neurological: Cranial nerves II-XII grossly intact, Neuro grossly intact, Motor Exam 5/5 strength throughout Psych/Mental Status: Appropriate, Anxious Microbiology Past 72 Hours 04/15/19 01:05 Urine, Random Streptococcus pneumoniae Antigen (M - Final Streptococcus pneumonia Ag Laboratory Results 04/15/19 00:15: WBC 6.9, RBC 4.03 L, Hgb 12.4 L, Hct 38.1 L, MCV 94.5 H, MCH 30.8, MCHC 32.5, RDW Std Deviation 44.8 H, RDW Coeff of James 13.1, Plt Count 194, MPV 9.7, Immature Gran % (Auto) [employer]ING MA[employer]GER, Neut % (Auto) HE[employer] C[employer] MARKETING MANAGER, Lymph % (Auto) HEALTH CARE MARKETING MANAGER, [place] % (Auto) HEALTH CARE MARKETING MANAGER, Eos % (Auto) HEALTH CARE MARKETING MANAGER, Baso % (Auto) HE[employer] C[employer] MARKETING MANAGER, Absolute Neuts (auto) 5.6, Absolute Lymphs (auto) 0.35 L, Total Counted 100, Neutrophils % (Manual) 48, Band Neutrophils % 33 H, Lymphocytes % (Manual) 5 L, Monocytes % (Manual) 3, Metamyelocytes % 11 H, Nucleated RBC % HE[employer] CARE MARKETING MANAGER, Diff Path Review September, Platelet Estimate ADEQUATE, RBC Morphology NORM C+C 04/15/19 00:15: PT 13.2, INR 1.0, APTT 20.0 L 04/15/19 00:15: Sodium 141, Potassium 3.9, Chloride 107, Carbon Dioxide 24.0, Anion Gap 10, BUN 33 H, Creatinine 1.75 H, Estim Creat Clear Calc 32.44, Est GFR (MDRD) Af Amer 48 L, Est GFR (MDRD) Non-Af 40 L, BUN/Creatinine Ratio 18.9, Glucose 196 H, Calcium 8.6, Total Bilirubin 0.50, AST 27, ALT 20, Alkaline Phosphatase 105, Troponin I < 0.015, Total Protein 6.9, Albumin 3.3, Globulin 3.6, Albumin/Globulin Ratio 0.9 04/15/19 00:15: Lactic Acid 4.1 H* 04/15/19 01:05: Urine Color Yellow, Urine Clarity Clear, Urine pH 5.0, Ur Specific Logan 1.020, Urine Protein 15 H, Urine Glucose (UA) Normal, Urine Ketones Negative, Urine Occult Blood Negative, Urine Nitrite Negative, Urine Bilirubin Negative, Urine Urobilinogen Normal, Ur Leukocyte Esterase Negative, Urine RBC 0 SEEN, Urine WBC 0-5 SEEN, Ur Squamous Epith Cells 0-5 SEEN, Urine Bacteria RARE, Urine Mucus 1+ 04/15/19 03:52: MRSA (PCR) Negative 04/15/19 03:55: Legionella pneumophila Ab Pending, Mycoplasma pneumon IgG Pending, Mycoplasma pneumon IgM Pending 04/15/19 03:55: WBC 6.2, RBC 3.54 L, Hgb 10.7 L, Hct 33.9 L, MCV 95.8 H, MCH 30.2, MCHC 31.6 L, RDW Std Deviation 46.5 H, RDW Coeff of James 13.1, Plt Count 168, MPV 9.1 04/15/19 03:55: Sodium 143, Potassium 3.3 L, Chloride 110 H, Carbon Dioxide 22.0, Anion Gap 11, BUN 30 H, Creatinine 1.58 H, Estim Creat Clear Calc 34.80, Est GFR (MDRD) Af Amer 54 L, Est GFR (MDRD) Non-Af 45 L, BUN/Creatinine Ratio 19.0, Glucose 167 H, Calcium 7.4 L 04/15/19 03:55: Lactic Acid 5.0 H* 04/15/19 03:55: Troponin I < 0.015 04/15/19 05:07: Specimen Type ART, Sample Site L Radial, pH 7.35, Bicarbonate Actual 19.5 L, POC Total CO2 21, Base Excess -6 L, O2 Saturation 91 L, O2 % 50, ABG pCO2 35.8, ABG pO2 64 L, Isidro Test POS, Respiration Rate 12, O2 Delivery Device Bi / C PAP, EPAP 5, IPAP 12, Blood Gas Notified Whom HOSP , Blood Gas Notified Time 500 04/15/19 06:17: POC Glucose 197 H 04/15/19 08:00: Troponin I Pending Clinical Impression(s) from Imaging Studies Chest X-Ray 04/15/19 00:20 IMPRESSION: Lingular infiltrate with possible left lower lobe and right middle lobe infiltrates as described above. Electronically Signed: Cassidy Swain MD at 0:54 EST , Service support , Current Medications Acetaminophen (Tylenol) 650 mg PO Q6H PRN PRN PRN Reason: Pain Score 1-10/Temp > 100.7 F Albuterol Sulfate (Ventolin Aerosols) 2.5 mg INHALATION Q2H PRN PRN PRN Reason: SOB/Wheezing Albuterol/Ipratropium (Duoneb) 3 ml INHALATION Q4HWA.RT CORI Last Admin: 04/15/19 07:09 Dose: 3 ml Documented by: Aspirin (Aspirin, Baby) 81 mg PO DAILY@0800 CORI Dextrose (D50w Syringe) 0 gm IV X1 PRN; Protocol PRN Reason: Hypoglycemia Enoxaparin Sodium (Lovenox) 40 mg SC DAILY CORI Glucagon () 1 mg IM .X1 PRN PRN Reason: Hypoglycemia Sodium Chloride () 1,000 mls @ 100 mls/hr IV .Q10H CORI Stop: 04/15/19 23:27 Last Infusion: 04/15/19 05:42 Dose: 100 mls/hr Documented by: Sodium Chloride () 250 mls @ 15 mls/hr IV .[id number] PRN PRN Reason: Saline Flush Last Infusion: 04/15/19 05:53 Dose: 0 mls/hr Documented by: Piperacillin Sod/Tazobactam (Sod 3.375 gm/ Sodium Chloride) 50 mls @ 12.5 mls/hr IV Q8 CORI Last Admin: 04/15/19 05:52 Dose: 12.5 mls/hr Documented by: Potassium Chloride () 10 meq in 100 mls @ 100 mls/hr IV BOLUS Q1H CORI Stop: 04/15/19 09:59 Last Admin: 04/15/19 07:33 Dose: 100 mls/hr Documented by: Insulin Human Lispro (Humalog Kwikpen (Bkc)) 0 unit SC Q6 CORI; Protocol Last Admin: 04/15/19 06:21 Dose: 1 unit Documented by: Labetalol HCl (Trandate) 10 mg IV Q4H PRN PRN PRN Reason: SBP > 160 Melatonin (Melatonin) 3 mg PO QHS PRN PRN PRN Reason: INSOMNIA Methylprednisolone (Solu-Medrol) 40 mg IV Q8 CORI Last Admin: 04/15/19 04:32 Dose: 40 mg Documented by: Ondansetron HCl (Zofran) 4 mg IV Q8H PRN PRN PRN Reason: NAUSEA/VOMITING Senna/Docusate Sodium (Senokot-S, Estefany-Colace) 2 tablet PO BID PRN PRN PRN Reason: Constipation Sodium Chloride () 10 - 40 ml IV UD PRN PRN Reason: SALINE FLUSH Assessment/Plan Active and Suspected Problems Septic shock (Acute) Acute respiratory failure with hypoxia (Acute) Sepsis (Acute) Community acquired pneumonia (Acute) Hypoxemia (Acute) RECOMMENDATIONS: 1. No further fluid boluses 2. Place PICC line for possible pressor therapy 3. Discontinue vancomycin 4. Continue BiPAP therapy as necessary 5. Potassium supplementation 6. Okay to hold on further lactate levels 7. Monitor blood sugars given steroid therapy IMPRESSIONS: 1. Septic shock secondary to pneumococcal pneumonia Patient with left lower lobe infiltrate and pneumococcal antigen. Clinical suspicion for pneumococcal pneumonia leading to current situation. Patient has significant hypoxia and likely has an element of diastolic congestive heart failure at this time. Would hold on fluid boluses for now. Initiate pressor therapy if necessary. Patient will be treated with Zosyn until cultures are finalized. If only pneumococcal antigen positive, likely okay to narrow antibiotic spectrum after 48 hours. Patient's MRSA swab was negative, so vancomycin is likely not necessary. Patient was very hesitant about a central line placement at the bedside by an IJ approach. Patient appears to be more receptive to a PICC line. This has been ordered. 2. Acute hypoxic respiratory failure secondary to pneumococcal pneumonia Patient does not report any history of obstructive lung disease in the past. Patient is on DuoNeb therapy. Patient was placed on Solu-Medrol, but most of hypoxia may be secondary to infectious process with possible element of congestive heart failure. Will likely repeat chest x-ray once volume is repleted. Clinical suspicion that chest x-ray on presentation underestimates current involvement. 3. Acute on chronic kidney disease stage III Clinical suspicion for prerenal etiology secondary to #1. No indication for renal replacement therapy at this time. Patient will be given supplemental potassium for hypokalemia. 4. Chronic diastolic congestive heart failure/type II pulmonary hypertension Previous echocardiogram shows elevated pulmonary artery pressures and diastolic dysfunction. Clinical suspicion patient may have an element of pulmonary edema secondary to volume resuscitation with problem #1. We will hold on rate control at this time. Would not actively diuresis patient is hypotensive. Patient may be at risk for development of A. fib with RVR. Patient is on telemetry. 5. Hypertension/diabetes mellitus type 2/advanced age/obesity Complicates care, management, recovery and prognosis. Patient currently n.p.o. secondary to #2. Reasonable to just follow with sliding scale insulin. Blood pressure medications will be held secondary to #1. TIME: 40 minutes critical care time spent addressing patient's septic shock, acute respiratory failure, kidney disease, diabetes, review of all data and collaboration with care team. (7:30 AM to 8:30 AM) Code Visit [id number]: [id number] Critical care first hour
[2019-04-15] MEDS: Aspirin 81 MG TAB.CHEW PO (08:40)
--- NOTE | 2019-04-15 09:19 | CM.UR ---
Participated in interdisciplinary rounds this am. No family at bedside. Patient awake and [place] AND [place] [employer]. +pneumonia. On bipap, Dr. Britt states he can take some breaks during the day but otherwise needs to be on bipap constantly. Remains NPO for now. Getting PICC placed today. DC plans TBD. Lashanda Ly RN, CCM.
[2019-04-15] MEDS: CHLORHEXIDINE GLUC 2% CLOTH 1 EACH TOWELETTE TOPICAL (09:37)
--- NOTE | 2019-04-15 10:02 | CM.UR ---
RN CM Assessment Introduced role of RN CM to patient. Patient is alert and able to participate in RN CM Assessment. Care providers, pharmacy, and demographics verified. No family at bedside. Presentation: SOB, chills, productive cough Admit Dx: pneumonia Re-Admit: no Barriers/Issues: [place] PCP: Nolberto Specialists: Bessie (ccf) States was supposed to get a PET scan several months ago however the day before it was scheduled the machine broke down. states it never got rescheduled as of yet. Preferred Pharmacy: [facility] Insurance: [employer] PPO Rx Benefit: yes. no problems affording medications. LNOK: , Namita LW/HPOA: none, declined. Living Arrangements: lives in 2 story home with basement office. States no accessibility problems, though he does get sob at times. States he goes up and down the stairs 3-4x per day. States basement is walk in basement. ADL?s: Independent Transportation: self DME: Nebulizer, cane and walker DME co: no preference HHC: None SNF: None Goal: Home DC PLAN: Home, ? if will have additional home going needs. CM will continue to follow for any needs that arise. Lashanda Ly RN, CCM.
[2019-04-15] MEDS: Enoxaparin 40 MG/0.4 ML Syringe SC (10:46)
[2019-04-15 12:11] LABS: Bedside Glucose 180 mg/dL (70-110)
[2019-04-15] MEDS: 0.9% Saline Lock 10 ML Syringe IV ×2 (14:50→21:18)
[2019-04-15 18:05] LABS: Bedside Glucose 218 mg/dL (70-110)
[2019-04-15] MEDS: MELATONIN 3 MG TABLET PO (21:17)
[2019-04-15] MEDS: guaiFENesin 1,200 MG Tablet 1200 MG PO (21:18)
[2019-04-15 23:25] LABS: Bedside Glucose 235 mg/dL (70-110)
[2019-04-16] VITALS (35 sets, daily range): BP systolic 102–148; BP diastolic 50–99; PULSE 85–146; RESP 12–36; TEMP 36.8–37.5; O2SAT 88–99
[2019-04-16 04:27] LABS: Hematocrit 31.5 % (40-54); Hemoglobin 10.2 g/dL (13.0-16.5); Mean Corp Hgb Conc 32.4 g/dL (32-36); Mean Corpuscular Hgb 30.8 pg (27.0-32.0); Mean Corpuscular Volume 95.2 fL (80-94); Mean Platelet Vol. 9.4 fl (6.2-12.0); Platelet Count 145 K/mm3 (150-450); RBC Distribution Width CV 13.6 % (11.6-14.6); RBC Distribution Width SD 47.8 fl (35.1-43.9); Red Blood Count 3.31 M/mm3 (4.6-6.2); White Blood Count 10.2 K/mm3 (4.4-11.0)
[2019-04-16 04:42] LABS: Anion Gap 9 (5-15); BUN 30 mg/dL (7-18); BUN/Creat Ratio 21.6 RATIO (10-20); Calcium,Total 7.3 mg/dL (8.5-10.1); Chloride 110 mmol/L (98-107); Creatinine, Serum 1.39 mg/dL (0.70-1.30); EST Glomerular Filtration Rate 52 mL/min (>60); Est Glom Filt Rate - Afr Amer 63 mL/min (>60); Estimated Creatinine Clearance 39.56 ml/min; Glucose 213 mg/dL (74-106); Potassium 3.9 mmol/L (3.5-5.1); Sodium Level 140 mmol/L (136-145)
--- NOTE | 2019-04-16 05:06 | NURSING ---
While pt moving around in bed getting on/off bedpan, became tachycardic (rate 112-120) and irregular. Converted back to normal sinus before EKG could be obtained. Put BiPap facemask back on while pt recovered from exertional dyspnea.
[2019-04-16] MEDS: Insulin Lispro 100 UNIT/ML INSULN.PEN SC ×4 (05:33→22:53)
[2019-04-16] MEDS: 0.9% Saline Lock 10 ML Syringe IV ×2 (05:36→20:38)
[2019-04-16 05:46] LABS: Bedside Glucose 191 mg/dL (70-110)
[2019-04-16] MEDS: Ipratropium/Albuterol Sulfate 3 ML AMPUL.NEB INHALATION ×4 (07:10→18:50)
--- NOTE | 2019-04-16 07:22 | PCM.PN.INT ---
Subjective: Patient did okay overnight. Patient has been able to take some BiPAP breaks, but continues to be tachypneic. Blood pressures have continued to improve and no pressors were required. Patient did have his pick without complications. Patient denies any current chest pain, but does have a productive cough. General: Alert, Oriented x3, Cooperative, No apparent distress, - - Somewhat anxious. Obese. HEENT: Atraumatic, PERRLA, EOMI, Normocephalic, - - No scleral icterus or injection noted Oral: Moist Mucosa, No Gingival or Mucosal Lesions/ Ulcerations Neck: Supple, No JVD, No Nodes, Trachea Midline Lungs: No rales, Rhonchi - Bilateral, Wheezes - Bilateral, - - Symmetric expansion. No dullness to percussion. Cardiovascular: Regular rate, Regular Rhythm, Normal S1, Normal S2, No murmurs, No rub noted, No Gallop Abdomen: Bowel Sounds Present, Soft, Non Tender, Non-Distended Extremities: No clubbing, No cyanosis, Edema - 1+ Skin: No rashes, No breakdown Musculoskeletal: No Tenderness to Palpation of Joints or Extremities Lymphatic: No Cervical, Supraclavicular, or Inguinal Adenopathy Neurological: Cranial nerves II-XII grossly intact, Neuro grossly intact, Motor Exam 5/5 strength throughout Psych/Mental Status: Alert and oriented to time, place, person, mood and affect Vital Signs Temp Pulse Resp BP Pulse Ox 37.1 C 94 34 H 126/74 H 96 04/16/19 04:00 04/16/19 07:00 04/16/19 07:00 04/16/19 07:00 04/16/19 07:00 Oxygen Flow Rate (L/min) 4 Oxygen Delivery Method Nasal Cannula Weight: 108.9 kg Body Mass Index (BMI) 33.9 Intake and Output for Last 24 Hours 04/14/19 04/15/19 04/16/19 23:59 23:59 23:59 Intake Total 7240.45 / 7240.45 308.63 / 308.63 Output Total 575 / 575 100 / 100 Balance 6665.45 / 6665.45 208.63 / 208.63 Labs (Last 48 Hours) 04/15/19 04/15/19 04/15/19 00:15 00:15 00:15 WBC 6.9 RBC 4.03 L Hgb 12.4 L Hct 38.1 L MCV 94.5 H MCH 30.8 MCHC 32.5 RDW Std Deviation 44.8 H RDW Coeff of James 13.1 Plt Count 194 MPV 9.7 Immature Gran % (Auto) [employer] Neut % (Auto) [employer]CH[employer] Lymph % (Auto) [employer] ARCH[employer]ECT [place] % (Auto) S[employer]OPER ARCH[employer]ECT Eos % (Auto) [employer] ARCHITECT Baso % (Auto) [employer]CH[employer] Absolute Neuts (auto) 5.6 Absolute Lymphs (auto) 0.35 L Total Counted 100 Neutrophils % (Manual) 48 Band Neutrophils % 33 H Lymphocytes % (Manual) 5 L Monocytes % (Manual) 3 Metamyelocytes % 11 H Nucleated RBC % [employer]EL[employer] Diff Path Review May foll Platelet Estimate ADEQUATE RBC Morphology NORM C+C PT 13.2 INR 1.0 APTT 20.0 L Specimen Type Sample Site pH Bicarbonate Actual POC Total CO2 Base Excess O2 Saturation O2 % ABG pCO2 ABG pO2 Isidro Test Respiration Rate O2 Delivery Device EPAP IPAP Blood Gas Notified Whom Blood Gas Notified Time Sodium 141 Potassium 3.9 Chloride 107 Carbon Dioxide 24.0 Anion Gap 10 BUN 33 H Creatinine 1.75 H Estim Creat Clear Calc 32.44 Est GFR (MDRD) Af Amer 48 L Est GFR (MDRD) Non-Af 40 L BUN/Creatinine Ratio 18.9 Glucose 196 H Lactic Acid Calcium 8.6 Total Bilirubin 0.50 AST 27 ALT 20 Alkaline Phosphatase 105 Troponin I < 0.015 Total Protein 6.9 Albumin 3.3 Globulin 3.6 Albumin/Globulin Ratio 0.9 Urine Color Urine Clarity Urine pH Ur Specific [place] Urine Protein Urine Glucose (UA) Urine Ketones Urine Occult Blood Urine Nitrite Urine Bilirubin Urine Urobilinogen Ur Leukocyte Esterase Urine RBC Urine WBC Ur Squamous Epith Cells Urine Bacteria Urine Mucus Legionella pneumophila Ab Mycoplasma pneumon IgG Mycoplasma pneumon IgM MRSA (PCR) POC Glucose 04/15/19 04/15/19 04/15/19 00:15 01:05 03:52 WBC RBC Hgb Hct MCV MCH MCHC RDW Std Deviation RDW Coeff of James Plt Count MPV Immature Gran % (Auto) Neut % (Auto) Lymph % (Auto) [place] % (Auto) Eos % (Auto) Baso % (Auto) Absolute Neuts (auto) Absolute Lymphs (auto) Total Counted Neutrophils % (Manual) Band Neutrophils % Lymphocytes % (Manual) Monocytes % (Manual) Metamyelocytes % Nucleated RBC % Diff Path Review Platelet Estimate RBC Morphology PT INR APTT Specimen Type Sample Site pH Bicarbonate Actual POC Total CO2 Base Excess O2 Saturation O2 % ABG pCO2 ABG pO2 Isidro Test Respiration Rate O2 Delivery Device EPAP IPAP Blood Gas Notified Whom Blood Gas Notified Time Sodium Potassium Chloride Carbon Dioxide Anion Gap BUN Creatinine Estim Creat Clear Calc Est GFR (MDRD) Af Amer Est GFR (MDRD) Non-Af BUN/Creatinine Ratio Glucose Lactic Acid 4.1 H* Calcium Total Bilirubin AST ALT Alkaline Phosphatase Troponin I Total Protein Albumin Globulin Albumin/Globulin Ratio Urine Color Yellow Urine Clarity Clear Urine pH 5.0 Ur Specific [place] 1.020 Urine Protein 15 H Urine Glucose (UA) Normal Urine Ketones Negative Urine Occult Blood Negative Urine Nitrite Negative Urine Bilirubin Negative Urine Urobilinogen Normal Ur Leukocyte Esterase Negative Urine RBC 0 SEEN Urine WBC 0-5 SEEN Ur Squamous Epith Cells 0-5 SEEN Urine Bacteria RARE Urine Mucus 1+ Legionella pneumophila Ab Mycoplasma pneumon IgG Mycoplasma pneumon IgM MRSA (PCR) Negative POC Glucose 04/15/19 04/15/19 04/15/19 03:55 03:55 03:55 WBC 6.2 RBC 3.54 L Hgb 10.7 L Hct 33.9 L MCV 95.8 H MCH 30.2 MCHC 31.6 L RDW Std Deviation 46.5 H RDW Coeff of James 13.1 Plt Count 168 MPV 9.1 Immature Gran % (Auto) Neut % (Auto) Lymph % (Auto) [place] % (Auto) Eos % (Auto) Baso % (Auto) Absolute Neuts (auto) Absolute Lymphs (auto) Total Counted Neutrophils % (Manual) Band Neutrophils % Lymphocytes % (Manual) Monocytes % (Manual) Metamyelocytes % Nucleated RBC % Diff Path Review Platelet Estimate RBC Morphology PT INR APTT Specimen Type Sample Site pH Bicarbonate Actual POC Total CO2 Base Excess O2 Saturation O2 % ABG pCO2 ABG pO2 Isidro Test Respiration Rate O2 Delivery Device EPAP IPAP Blood Gas Notified Whom Blood Gas Notified Time Sodium 143 Potassium 3.3 L Chloride 110 H Carbon Dioxide 22.0 Anion Gap 11 BUN 30 H Creatinine 1.58 H Estim Creat Clear Calc 34.80 Est GFR (MDRD) Af Amer 54 L Est GFR (MDRD) Non-Af 45 L BUN/Creatinine Ratio 19.0 Glucose 167 H Lactic Acid Calcium 7.4 L Total Bilirubin AST ALT Alkaline Phosphatase Troponin I Total Protein Albumin Globulin Albumin/Globulin Ratio Urine Color Urine Clarity Urine pH Ur Specific [place] Urine Protein Urine Glucose (UA) Urine Ketones Urine Occult Blood Urine Nitrite Urine Bilirubin Urine Urobilinogen Ur Leukocyte Esterase Urine RBC Urine WBC Ur Squamous Epith Cells Urine Bacteria Urine Mucus Legionella pneumophila Ab Pending Mycoplasma pneumon IgG Pending Mycoplasma pneumon IgM Pending MRSA (PCR) POC Glucose 04/15/19 04/15/19 04/15/19 03:55 03:55 05:07 WBC RBC Hgb Hct MCV MCH MCHC RDW Std Deviation RDW Coeff of James Plt Count MPV Immature Gran % (Auto) Neut % (Auto) Lymph % (Auto) [place] % (Auto) Eos % (Auto) Baso % (Auto) Absolute Neuts (auto) Absolute Lymphs (auto) Total Counted Neutrophils % (Manual) Band Neutrophils % Lymphocytes % (Manual) Monocytes % (Manual) Metamyelocytes % Nucleated RBC % Diff Path Review Platelet Estimate RBC Morphology PT INR APTT Specimen Type ART Sample Site L Radial pH 7.35 Bicarbonate Actual 19.5 L POC Total CO2 21 Base Excess -6 L O2 Saturation 91 L O2 % 50 ABG pCO2 35.8 ABG pO2 64 L Isidro Test POS Respiration Rate 12 O2 Delivery Device Bi / C PAP EPAP 5 IPAP 12 Blood Gas Notified Whom HOSP Blood Gas Notified Time 500 Sodium Potassium Chloride Carbon Dioxide Anion Gap BUN Creatinine Estim Creat Clear Calc Est GFR (MDRD) Af Amer Est GFR (MDRD) Non-Af BUN/Creatinine Ratio Glucose Lactic Acid 5.0 H* Calcium Total Bilirubin AST ALT Alkaline Phosphatase Troponin I < 0.015 Total Protein Albumin Globulin Albumin/Globulin Ratio Urine Color Urine Clarity Urine pH Ur Specific [place] Urine Protein Urine Glucose (UA) Urine Ketones Urine Occult Blood Urine Nitrite Urine Bilirubin Urine Urobilinogen Ur Leukocyte Esterase Urine RBC Urine WBC Ur Squamous Epith Cells Urine Bacteria Urine Mucus Legionella pneumophila Ab Mycoplasma pneumon IgG Mycoplasma pneumon IgM MRSA (PCR) POC Glucose 04/15/19 04/15/19 04/15/19 06:17 08:00 12:02 WBC RBC Hgb Hct MCV MCH MCHC RDW Std Deviation RDW Coeff of James Plt Count MPV Immature Gran % (Auto) Neut % (Auto) Lymph % (Auto) [place] % (Auto) Eos % (Auto) Baso % (Auto) Absolute Neuts (auto) Absolute Lymphs (auto) Total Counted Neutrophils % (Manual) Band Neutrophils % Lymphocytes % (Manual) Monocytes % (Manual) Metamyelocytes % Nucleated RBC % Diff Path Review Platelet Estimate RBC Morphology PT INR APTT Specimen Type Sample Site pH Bicarbonate Actual POC Total CO2 Base Excess O2 Saturation O2 % ABG pCO2 ABG pO2 Isidro Test Respiration Rate O2 Delivery Device EPAP IPAP Blood Gas Notified Whom Blood Gas Notified Time Sodium Potassium Chloride Carbon Dioxide Anion Gap BUN Creatinine Estim Creat Clear Calc Est GFR (MDRD) Af Amer Est GFR (MDRD) Non-Af BUN/Creatinine Ratio Glucose Lactic Acid Calcium Total Bilirubin AST ALT Alkaline Phosphatase Troponin I < 0.015 Total Protein Albumin Globulin Albumin/Globulin Ratio Urine Color Urine Clarity Urine pH Ur Specific [place] Urine Protein Urine Glucose (UA) Urine Ketones Urine Occult Blood Urine Nitrite Urine Bilirubin Urine Urobilinogen Ur Leukocyte Esterase Urine RBC Urine WBC Ur Squamous Epith Cells Urine Bacteria Urine Mucus Legionella pneumophila Ab Mycoplasma pneumon IgG Mycoplasma pneumon IgM MRSA (PCR) POC Glucose 197 H 180 H 04/15/19 04/15/19 04/16/19 17:57 23:16 04:10 WBC 10.2 RBC 3.31 L Hgb 10.2 L Hct 31.5 L MCV 95.2 H MCH 30.8 MCHC 32.4 RDW Std Deviation 47.8 H RDW Coeff of James 13.6 Plt Count 145 L MPV 9.4 Immature Gran % (Auto) Neut % (Auto) Lymph % (Auto) [place] % (Auto) Eos % (Auto) Baso % (Auto) Absolute Neuts (auto) Absolute Lymphs (auto) Total Counted Neutrophils % (Manual) Band Neutrophils % Lymphocytes % (Manual) Monocytes % (Manual) Metamyelocytes % Nucleated RBC % Diff Path Review Platelet Estimate RBC Morphology PT INR APTT Specimen Type Sample Site pH Bicarbonate Actual POC Total CO2 Base Excess O2 Saturation O2 % ABG pCO2 ABG pO2 Isidro Test Respiration Rate O2 Delivery Device EPAP IPAP Blood Gas Notified Whom Blood Gas Notified Time Sodium Potassium Chloride Carbon Dioxide Anion Gap BUN Creatinine Estim Creat Clear Calc Est GFR (MDRD) Af Amer Est GFR (MDRD) Non-Af BUN/Creatinine Ratio Glucose Lactic Acid Calcium Total Bilirubin AST ALT Alkaline Phosphatase Troponin I Total Protein Albumin Globulin Albumin/Globulin Ratio Urine Color Urine Clarity Urine pH Ur Specific [place] Urine Protein Urine Glucose (UA) Urine Ketones Urine Occult Blood Urine Nitrite Urine Bilirubin Urine Urobilinogen Ur Leukocyte Esterase Urine RBC Urine WBC Ur Squamous Epith Cells Urine Bacteria Urine Mucus Legionella pneumophila Ab Mycoplasma pneumon IgG Mycoplasma pneumon IgM MRSA (PCR) POC Glucose 218 H 235 H 04/16/19 04/16/19 04:10 05:31 WBC RBC Hgb Hct MCV MCH MCHC RDW Std Deviation RDW Coeff of James Plt Count MPV Immature Gran % (Auto) Neut % (Auto) Lymph % (Auto) [place] % (Auto) Eos % (Auto) Baso % (Auto) Absolute Neuts (auto) Absolute Lymphs (auto) Total Counted Neutrophils % (Manual) Band Neutrophils % Lymphocytes % (Manual) Monocytes % (Manual) Metamyelocytes % Nucleated RBC % Diff Path Review Platelet Estimate RBC Morphology PT INR APTT Specimen Type Sample Site pH Bicarbonate Actual POC Total CO2 Base Excess O2 Saturation O2 % ABG pCO2 ABG pO2 Isidro Test Respiration Rate O2 Delivery Device EPAP IPAP Blood Gas Notified Whom Blood Gas Notified Time Sodium 140 Potassium 3.9 Chloride 110 H Carbon Dioxide 21.0 Anion Gap 9 BUN 30 H Creatinine 1.39 H Estim Creat Clear Calc 39.56 Est GFR (MDRD) Af Amer 63 Est GFR (MDRD) Non-Af 52 L BUN/Creatinine Ratio 21.6 H Glucose 213 H Lactic Acid Calcium 7.3 L Total Bilirubin AST ALT Alkaline Phosphatase Troponin I Total Protein Albumin Globulin Albumin/Globulin Ratio Urine Color Urine Clarity Urine pH Ur Specific [place] Urine Protein Urine Glucose (UA) Urine Ketones Urine Occult Blood Urine Nitrite Urine Bilirubin Urine Urobilinogen Ur Leukocyte Esterase Urine RBC Urine WBC Ur Squamous Epith Cells Urine Bacteria Urine Mucus Legionella pneumophila Ab Mycoplasma pneumon IgG Mycoplasma pneumon IgM MRSA (PCR) POC Glucose 191 H Microbiology 04/15/19 12:00 Sputum, Expectorated/Coughed Gram Stain - Final 04/15/19 01:05 Urine, Random Streptococcus pneumoniae Antigen (M - Final Streptococcus pneumonia Ag Medical Necessity - Tobacco Use Smoking Status: Former smoker Tobacco Use: Cigars - Sporadic. Last smoked between 1 to 5 years ago. Assessment/Plan All Active Problems Septic shock (Acute) Acute respiratory failure with hypoxia (Acute) Sepsis (Acute) Community acquired pneumonia (Acute) Hypoxemia (Acute) Skin cancer (Resolved) RECOMMENDATIONS: 1. Give diuretic therapy 2. Continue antibiotics to complete a 10-day course 3. Narrow antibiotic spectrum if culture negative at 48 hours 4. Continue BiPAP therapy as necessary 5. Wean oxygen as tolerated IMPRESSIONS: 1. Septic shock secondary to pneumococcal pneumonia Patient with left lower lobe infiltrate and pneumococcal antigen. Clinical suspicion for pneumococcal pneumonia leading to current situation. Patient has significant hypoxia and likely has an element of diastolic congestive heart failure at this time. Patient's blood pressure appears to be improving with fluid and antibiotics. We will continue with Zosyn therapy for now, but if culture negative at 48 hours for other organisms, narrowing of antibiotic spectrum would be appropriate. 2. Acute hypoxic respiratory failure secondary to pneumococcal pneumonia Patient does not report any history of obstructive lung disease in the past. Patient is on DuoNeb therapy. Patient was placed on Solu-Medrol, but most of hypoxia may be secondary to infectious process with possible element of congestive heart failure. Patient is still requiring BiPAP rescue through the day. Will give a dose of Lasix to see if this will help with oxygenation and respiratory muscle demand. 3. Acute on chronic kidney disease stage III Continues to improve. Clinical suspicion for prerenal etiology secondary to #1. No indication for renal replacement therapy at this time. Patient will be given supplemental potassium for hypokalemia as indicated. 4. Chronic diastolic congestive heart failure/type II pulmonary hypertension Previous echocardiogram shows elevated pulmonary artery pressures and diastolic dysfunction. Clinical suspicion patient may have an element of pulmonary edema secondary to volume resuscitation with problem #1. We will hold on rate control at this time. Patient will receive a single dose of Lasix therapy. Patient may be at risk for development of A. fib with RVR. Patient is on telemetry. 5. Hypertension/diabetes mellitus type 2/advanced age/obesity Complicates care, management, recovery and prognosis. Patient currently n.p.o. secondary to #2. Reasonable to just follow with sliding scale insulin. Blood pressure medications will be held secondary to #1. Code Visit Inpatient E&M: [id number] [facility] Hosp L3
--- NOTE | 2019-04-16 08:01 | PCM.PN.HOSP ---
Patient Problems: Active and Suspected Problems Septic shock (Acute) Acute respiratory failure with hypoxia (Acute) Sepsis (Acute) Community acquired pneumonia (Acute) Hypoxemia (Acute) Reason for Visit: Follow-up for acute hypoxic respiratory failure and septic shock. Subjective: Patient's respiratory status has improved. Patient currently having some break off BiPAP but is still short of breath on conversation. T-max 99.8 Fahrenheit. BP has improved without vasopressor support; actually patient did not require vasopressor. BP 126/74. Pulse ox 92% on 4 L of oxygen, RR 28 to 34/min Vitals/I&O's: Vital Signs Temp Pulse Resp BP Pulse Ox 98.7 F 99 34 H 126/74 H 96 04/16/19 04:00 04/16/19 07:54 04/16/19 07:00 04/16/19 07:00 04/16/19 07:00 Oxygen Flow Rate (L/min) 4 Oxygen Delivery Method Nasal Cannula Weight: 240 lb 1.334 oz Body Mass Index (BMI) 33.9 Intake and Output for Last 24 Hours 04/14/19 04/15/19 04/16/19 23:59 23:59 23:59 Intake Total 7240.45 / 7240.45 308.63 / 308.63 Output Total 575 / 575 100 / 100 Balance 6665.45 / 6665.45 208.63 / 208.63 General: Alert, Oriented x3, Cooperative HEENT: Atraumatic, PERRLA, EOMI, Normocephalic Neck: Supple, No JVD, Negative Carotid Bruits Lungs: Diminished - Air entry is diminished in all lung schmid., Rhonchi, Short of Breath, Tachypneic Cardiovascular: Regular rate, Normal S1, Normal S2, No murmurs Abdomen: Bowel Sounds Present, Soft, Non Tender, Non-Distended Extremities: Capillary Refill Less than 3 Seconds, Edema Skin: No rashes, No breakdown Musculoskeletal: No Tenderness to Palpation of Joints or Extremities, Arthritic Changes Lymphatic: No Cervical, Supraclavicular, or Inguinal Adenopathy Neurological: Cranial nerves II-XII grossly intact, Deep Tendon Reflexes 2+/4 and Symmetrical, Neuro grossly intact Psych/Mental Status: Normal Affect, Appropriate Microbiology Past 72 Hours 04/15/19 12:00 Sputum, Expectorated/Coughed Gram Stain - Final 04/15/19 01:05 Urine, Random Streptococcus pneumoniae Antigen (M - Final Streptococcus pneumonia Ag Laboratory Results 04/15/19 08:00: Troponin I < 0.015 04/15/19 12:02: POC Glucose 180 H 04/15/19 17:57: POC Glucose 218 H 04/15/19 23:16: POC Glucose 235 H 04/16/19 04:10: WBC 10.2, RBC 3.31 L, Hgb 10.2 L, Hct 31.5 L, MCV 95.2 H, MCH 30.8, MCHC 32.4, RDW Std Deviation 47.8 H, RDW Coeff of James 13.6, Plt Count 145 L, MPV 9.4 04/16/19 04:10: Sodium 140, Potassium 3.9, Chloride 110 H, Carbon Dioxide 21.0, Anion Gap 9, BUN 30 H, Creatinine 1.39 H, Estim Creat Clear Calc 39.56, Est GFR (MDRD) Af Amer 63, Est GFR (MDRD) Non-Af 52 L, BUN/Creatinine Ratio 21.6 H, Glucose 213 H, Calcium 7.3 L 04/16/19 05:31: POC Glucose 191 H Current Medications Acetaminophen (Tylenol) 650 mg PO Q6H PRN PRN PRN Reason: Pain Score 1-10/Temp > 100.7 F Albuterol Sulfate (Ventolin Aerosols) 2.5 mg INHALATION Q2H PRN PRN PRN Reason: SOB/Wheezing Albuterol/Ipratropium (Duoneb) 3 ml INHALATION Q4HWA.RT [facility] Last Admin: 04/15/19 19:42 Dose: 3 ml Documented by: Aspirin (Aspirin, Baby) 81 mg PO DAILY@0800 [facility] Last Admin: 04/15/19 08:40 Dose: 81 mg Documented by: Chlorhexidine Gluconate () 1 each TOPICAL DAILY [facility] Last Admin: 04/15/19 09:37 Dose: 1 each Documented by: Dextrose (D50w Syringe) 0 gm IV X1 PRN; Protocol PRN Reason: Hypoglycemia Enoxaparin Sodium (Lovenox) 40 mg SC DAILY [facility] Last Admin: 04/15/19 10:46 Dose: 40 mg Documented by: Glucagon () 1 mg IM .X1 PRN PRN Reason: Hypoglycemia Guaifenesin (Mucinex) 1,200 mg PO BID [facility] Last Admin: 04/15/19 21:18 Dose: 1,200 mg Documented by: Sodium Chloride () 250 mls @ 15 mls/hr IV .[id number] PRN PRN Reason: Saline Flush Last Infusion: 04/16/19 05:34 Dose: 0 mls/hr Documented by: Piperacillin Sod/Tazobactam (Sod 3.375 gm/ Sodium Chloride) 50 mls @ 12.5 mls/hr IV Q8 [facility] Last Admin: 04/16/19 05:34 Dose: 12.5 mls/hr Documented by: Insulin Human Lispro (Humalog Kwikpen (Bkc)) 0 unit SC Q6 [facility]; Protocol Last Admin: 04/16/19 05:33 Dose: 1 unit Documented by: Labetalol HCl (Trandate) 10 mg IV Q4H PRN PRN PRN Reason: SBP > 160 Melatonin (Melatonin) 3 mg PO QHS PRN PRN PRN Reason: INSOMNIA Last Admin: 04/15/19 21:17 Dose: 3 mg Documented by: Methylprednisolone (Solu-Medrol) 40 mg IV Q8 [facility] Last Admin: 04/16/19 05:33 Dose: 40 mg Documented by: Ondansetron HCl (Zofran) 4 mg IV Q8H PRN PRN PRN Reason: NAUSEA/VOMITING Senna/Docusate Sodium (Senokot-S, Estefany-Colace) 2 tablet PO BID PRN PRN PRN Reason: Constipation Sodium Chloride () 10 - 40 ml IV UD PRN PRN Reason: SALINE FLUSH Last Admin: 04/16/19 05:36 Dose: 30 ml Documented by: STROKE Vital Signs/Narrative: Vital Signs Pulse Resp BP Pulse Ox 04/16/19 07:54 99 04/16/19 07:00 94 34 H 126/74 H 96 04/16/19 06:00 85 28 H 106/64 94 04/16/19 05:00 112 H 25 H 148/50 H 90 Medical Necessity - Tobacco Use Smoking Status: Former smoker Tobacco Use: Cigars - Sporadic. Last smoked between 1 to 5 years ago. Assessment/Plan All Active Problems Septic shock (Acute) Acute respiratory failure with hypoxia (Acute) Sepsis (Acute) Community acquired pneumonia (Acute) Hypoxemia (Acute) Skin cancer (Resolved) This 83-year-old gentleman with multiple comorbidities including type 2 diabetes mellitus, AND hypertension was admitted through ER for 4-day history of fever, shortness of breath, productive cough mucus but he got more symptomatic in the last 2 days. Patient further said he has on and off cough for few months and had pneumonia about 5 to 6 months ago. Chest x-ray shows lingular infiltrate right middle lobe infiltrate. Patient was managed on septic shock protocol because significant bandemia, elevated creatinine 1.7 and lactic acidosis 4.1. Patient was admitted in ICU. In ICU, patient reports improvement in shortness of breath and pleuritic chest pain. Blood pressure on lower side 87/52 although it was 132/65 in ER. Pulse ox 91% on 50% BiPAP 1. Septic shock secondary to pneumococcal pneumonia: Urinary antigen is positive of strep pneumonia. Initially patient was started on vancomycin and Zosyn. Vancomycin discontinued. Discussed with cad technician. Blood pressure borderline low. Patient is hesitant about central line therefore PICC line was ordered. Cultures x2 are pending. 04/16: Patient has right arm PICC line. Did not require vasopressor support. BP has improved. Continue antibiotic. 2. Acute hypoxic respiratory failure secondary to pneumococcal pneumonia: ABG was done. 7.35/35/64 on 12/550% FiO2 consistent with acute hypoxic respiratory failure. K3.3, bicarb 22, anion gap 11. Hypokalemia mild, replaced. 04/16: Respiratory status has improved. Oxygen through nasal cannula and intermittent BiPAP support as per cad technician. 3. Acute kidney injury on chronic kidney disease stage III: Patient has slow increase in BUN and creatinine since June 2018. BUN/creatinine 23/1.4 in June 2018. BUN/Creatinine 30/1.58. Patient has mild ankle edema. At home patient is on metformin, amlodipine, metoprolol, lisinopril and HCTZ. Nephrotoxic medications are held. 04/16: BUN/creatinine 30/1.39 shows improvement. 1 dose of Lasix 10 mg IV given. 4. Diabetes mellitus type 2: Accu-Chek with Humalog sliding scale. A1c tomorrow a.m. 04/16: Blood sugar between 182-35. We will titrate up the insulin. 5. Chronic diastolic heart failure/pulmonary hypertension: Patient had echo done in May 2018. Reported as EF 55% with normal LV systolic function. Stage I diastolic dysfunction. RVSP 50 mmHg consistent with mild to moderate pulmonary hypertension. EKG normal sinus rhythm. 04/16: Patient states his left leg generally is more edematous than right leg. Ultrasound venous Doppler ordered. On exam there is no tenderness or swelling of calf or thigh muscles. 6. Other multiple comorbidities include hypertension, mixed chronic microcytic anemia/iron deficiency anemia: Multiple comorbidities complicates the present care and expect difficult and delay recovery DVT prophylaxis: On Lovenox 40 mg subcu daily. Discontinue if platelet count drops less than 50,000 or hemoglobin less than 8 g% Microbiology Past 72 Hours 04/15/19 12:00 Sputum, Expectorated/Coughed Gram Stain - Final 04/15/19 01:05 Urine, Random Streptococcus pneumoniae Antigen (M - Final Streptococcus pneumonia Ag Laboratory Results 04/15/19 08:00: Troponin I < 0.015 04/15/19 12:02: POC Glucose 180 H 04/15/19 17:57: POC Glucose 218 H 04/15/19 23:16: POC Glucose 235 H 04/16/19 04:10: WBC 10.2, RBC 3.31 L, Hgb 10.2 L, Hct 31.5 L, MCV 95.2 H, MCH 30.8, MCHC 32.4, RDW Std Deviation 47.8 H, RDW Coeff of James 13.6, Plt Count 145 L, MPV 9.4 04/16/19 04:10: Sodium 140, Potassium 3.9, Chloride 110 H, Carbon Dioxide 21.0, Anion Gap 9, BUN 30 H, Creatinine 1.39 H, Estim Creat Clear Calc 39.56, Est GFR (MDRD) Af Amer 63, Est GFR (MDRD) Non-Af 52 L, BUN/Creatinine Ratio 21.6 H, Glucose 213 H, Calcium 7.3 L 04/16/19 05:31: POC Glucose 191 H 04/15/19 05:07: Specimen Type ART, Sample Site L Radial, pH 7.35, Bicarbonate Actual 19.5 L, POC Total CO2 21, Base Excess -6 L, O2 Saturation 91 L, O2 % 50, ABG pCO2 35.8, ABG pO2 64 L, Isidro Test POS, Respiration Rate 12, O2 Delivery Device Bi / C PAP, EPAP 5, IPAP 12, Blood Gas Notified Whom HOSP , Blood Gas Notified Time 500 04/15/19 06:17: POC Glucose 197 H Clinical Impression(s) from Imaging Studies Chest X-Ray 04/15/19 00:20 IMPRESSION: Lingular infiltrate with possible left lower lobe and right middle lobe infiltrates as described above. Code Visit Inpatient E&M: 26958 Subs Hosp L3
[2019-04-16] MEDS: Furosemide 20 MG/2 ML VIAL IV (09:21)
[2019-04-16] MEDS: Aspirin 81 MG TAB.CHEW PO (09:22)
[2019-04-16] MEDS: CHLORHEXIDINE GLUC 2% CLOTH 1 EACH TOWELETTE TOPICAL (09:22)
[2019-04-16] MEDS: Enoxaparin 40 MG/0.4 ML Syringe SC (09:22)
[2019-04-16] MEDS: guaiFENesin 1,200 MG Tablet 1200 MG PO ×2 (09:22→22:54)
[2019-04-16] MEDS: Ferrous Gluconate 324 MG Tablet PO (12:23)
[2019-04-16 12:26] LABS: Bedside Glucose 210 mg/dL (70-110)
[2019-04-16 18:25] LABS: Bedside Glucose 242 mg/dL (70-110)
[2019-04-16] MEDS: Metoprolol Tartrate 5 MG/5 ML Vial IV ×2 (20:38→23:34)
--- NOTE | 2019-04-16 22:05 | CPS ---
decreased BiPAP pressures to 11/5 for pt comfort
[2019-04-16 23:05] LABS: Bedside Glucose 264 mg/dL (70-110)
[2019-04-17] VITALS (31 sets, daily range): BP systolic 118–158; BP diastolic 54–81; PULSE 78–119; RESP 12–32; TEMP 36.6–37.7; O2SAT 93–100
[2019-04-17] MEDS: Ipratropium/Albuterol Sulfate 3 ML AMPUL.NEB INHALATION ×4 (01:41→19:23)
--- NOTE | 2019-04-17 03:50 | EKG12_ITS ---
Test Reason : ARRHYTHMIA Blood Pressure : / mmHG Vent. Rate : 111 BPM Atrial Rate : 111 BPM P-R Int : 000 ms QRS Dur : 092 ms QT Int : 368 ms P-R-T Axes : 000 036 -26 degrees QTc Int : 500 ms Sinus rhythm with a run of A-Tach Abnormal ECG When compared with ECG of 15-APR-2019 00:30, MANUAL COMPARISON REQUIRED, DATA IS UNCONFIRMED Confirmed by AMAN BLACK, TRENT ([id number]), editor magazine [employer]IQUE ([id number]) on 04/23/2019 12:19:55 PM Referred By: Cristian Hazel Confirmed By:ANOOP NEWTON MD
[2019-04-17 04:17] LABS: Hematocrit 31.6 % (40-54); Hemoglobin 10.4 g/dL (13.0-16.5); Mean Corp Hgb Conc 32.9 g/dL (32-36); Mean Corpuscular Hgb 30.9 pg (27.0-32.0); Mean Corpuscular Volume 93.8 fL (80-94); Mean Platelet Vol. 10.1 fl (6.2-12.0); POSITIVE DIFFERENTIAL YES; POSITIVE MORPHOLOGY YES; Platelet Count 152 K/mm3 (150-450); RBC Distribution Width CV 13.8 % (11.6-14.6); RBC Distribution Width SD 46.6 fl (35.1-43.9); Red Blood Count 3.37 M/mm3 (4.6-6.2); White Blood Count 17.5 K/mm3 (4.4-11.0)
[2019-04-17 04:28] LABS: Anion Gap 8 (5-15); BUN 34 mg/dL (7-18); BUN/Creat Ratio 24.8 RATIO (10-20); Calcium,Total 8.2 mg/dL (8.5-10.1); Chloride 107 mmol/L (98-107); Creatinine, Serum 1.37 mg/dL (0.70-1.30); EST Glomerular Filtration Rate 53 mL/min (>60); Est Glom Filt Rate - Afr Amer 64 mL/min (>60); Estimated Creatinine Clearance 40.14 ml/min; Glucose 217 mg/dL (74-106); Potassium 3.2 mmol/L (3.5-5.1); Sodium Level 140 mmol/L (136-145)
[2019-04-17 04:51] LABS: Differential Indicated SCAN CRITERIA MET
[2019-04-17] MEDS: Metoprolol Tartrate 5 MG/5 ML Vial IV ×4 (05:05→23:13)
[2019-04-17] MEDS: Insulin Lispro 100 UNIT/ML INSULN.PEN SC ×4 (05:06→23:12)
[2019-04-17 05:11] LABS: Scan Smear per Review Criteria MANUAL DIFF
[2019-04-17 05:15] LABS: Lymphocyte 6 % (19-41); Monocyte 3 % (0-10); Neutrophil-Band 5 % (0-5); Neutrophil-Segmented 86 % (47-70); Platelet Estimate ADEQUATE (ADEQ); Red Cell Morphology NORM C+C NORMAL (NORM C&C); Total Cells Counted 100 (MANUAL DIFF); Toxic Granulation 3+; Vacuolated Cells 2+
[2019-04-17 05:16] LABS: Bedside Glucose 196 mg/dL (70-110)
[2019-04-17 05:16] LABS: Absolute Lymphocyte Count 1.05 X10^3/uL (0.83-4.51); Absolute Neutrophil Count 15.9 X10^3/uL (2.0-7.7); Lymphocyte # 1.05 X10^3/ul (4.0); Neutrophil # 15.93 X10^3/uL (2.7-7.7)
--- NOTE | 2019-04-17 07:03 | PCM.PN.INT ---
Subjective: Patient did okay overnight. Patient did try to avoid BiPAP therapy, but when used, patient's respiratory status was much improved. Patient was able to transition to normal sinus rhythm intermittently. Patient has been able to take p.o. General: Alert, Oriented x3, Cooperative, No apparent distress, Well developed, Well nourished, - - Anasarca noted. No conversational dyspnea. HEENT: Atraumatic, PERRLA, EOMI, Normocephalic, - - No scleral icterus or injection noted Oral: Moist Mucosa, No Gingival or Mucosal Lesions/ Ulcerations Neck: Supple, No JVD, No Nodes, Trachea Midline Lungs: No wheeze, No rales, Diminished, Rhonchi - Improved with cough, - - Symmetric expansion. No dullness to percussion. Cardiovascular: Regular rate, Regular Rhythm, Normal S1, Normal S2, No murmurs, No rub noted, No Gallop Abdomen: Bowel Sounds Present, Soft, Non Tender, Non-Distended, Obese Extremities: No clubbing, No cyanosis, Edema Skin: No rashes, No breakdown Musculoskeletal: No Tenderness to Palpation of Joints or Extremities Lymphatic: No Cervical, Supraclavicular, or Inguinal Adenopathy Neurological: Cranial nerves II-XII grossly intact, Neuro grossly intact, Motor Exam 5/5 strength throughout Psych/Mental Status: Alert and oriented to time, place, person, mood and affect Vital Signs Temp Pulse Resp BP Pulse Ox 37.7 C H 87 24 H 118/64 94 04/17/19 00:00 04/17/19 06:56 04/17/19 06:56 04/17/19 06:00 04/17/19 06:56 Oxygen Flow Rate (L/min) 3 Oxygen Delivery Method Nasal Cannula Weight: 107 kg Body Mass Index (BMI) 33.9 Intake and Output for Last 24 Hours 04/15/19 04/16/19 04/17/19 23:59 23:59 23:59 Intake Total 7240.45 / 7240.45 1011.63 / 1251.63 290 / 290 Output Total 575 / 575 1350 / 1600 650 / 650 Balance 6665.45 / 6665.45 -338.37 / -348.37 -360 / -360 Labs (Last 48 Hours) 04/15/19 04/15/19 04/15/19 08:00 12:02 17:57 WBC RBC Hgb Hct MCV MCH MCHC RDW Std Deviation RDW Coeff of James Plt Count MPV Immature Gran % (Auto) Neut % (Auto) Lymph % (Auto) [place] % (Auto) Eos % (Auto) Baso % (Auto) Absolute Neuts (auto) Absolute Lymphs (auto) Total Counted Neutrophils % (Manual) Band Neutrophils % Lymphocytes % (Manual) Monocytes % (Manual) Diff Path Review Toxic Granulation Toxic Vacuolation Platelet Estimate RBC Morphology Sodium Potassium Chloride Carbon Dioxide Anion Gap BUN Creatinine Estim Creat Clear Calc Est GFR (MDRD) Af Amer Est GFR (MDRD) Non-Af BUN/Creatinine Ratio Glucose Hemoglobin A1c Calcium Troponin I < 0.015 POC Glucose 180 H 218 H 04/15/19 04/16/19 04/16/19 23:16 04:10 04:10 WBC 10.2 RBC 3.31 L Hgb 10.2 L Hct 31.5 L MCV 95.2 H MCH 30.8 MCHC 32.4 RDW Std Deviation 47.8 H RDW Coeff of James 13.6 Plt Count 145 L MPV 9.4 Immature Gran % (Auto) Neut % (Auto) Lymph % (Auto) [place] % (Auto) Eos % (Auto) Baso % (Auto) Absolute Neuts (auto) Absolute Lymphs (auto) Total Counted Neutrophils % (Manual) Band Neutrophils % Lymphocytes % (Manual) Monocytes % (Manual) Diff Path Review Toxic Granulation Toxic Vacuolation Platelet Estimate RBC Morphology Sodium 140 Potassium 3.9 Chloride 110 H Carbon Dioxide 21.0 Anion Gap 9 BUN 30 H Creatinine 1.39 H Estim Creat Clear Calc 39.56 Est GFR (MDRD) Af Amer 63 Est GFR (MDRD) Non-Af 52 L BUN/Creatinine Ratio 21.6 H Glucose 213 H Hemoglobin A1c Calcium 7.3 L Troponin I POC Glucose 235 H 04/16/19 04/16/19 04/16/19 05:31 12:19 17:40 WBC RBC Hgb Hct MCV MCH MCHC RDW Std Deviation RDW Coeff of James Plt Count MPV Immature Gran % (Auto) Neut % (Auto) Lymph % (Auto) [place] % (Auto) Eos % (Auto) Baso % (Auto) Absolute Neuts (auto) Absolute Lymphs (auto) Total Counted Neutrophils % (Manual) Band Neutrophils % Lymphocytes % (Manual) Monocytes % (Manual) Diff Path Review Toxic Granulation Toxic Vacuolation Platelet Estimate RBC Morphology Sodium Potassium Chloride Carbon Dioxide Anion Gap BUN Creatinine Estim Creat Clear Calc Est GFR (MDRD) Af Amer Est GFR (MDRD) Non-Af BUN/Creatinine Ratio Glucose Hemoglobin A1c Calcium Troponin I POC Glucose 191 H 210 H 242 H 04/16/19 04/17/19 04/17/19 22:51 03:55 03:55 WBC 17.5 H RBC 3.37 L Hgb 10.4 L Hct 31.6 L MCV 93.8 MCH 30.9 MCHC 32.9 RDW Std Deviation 46.6 H RDW Coeff of James 13.8 Plt Count 152 MPV 10.1 Immature Gran % (Auto) INSTRUCTIONAL DESIGN SPECIALIST Neut % (Auto) INSTRUCTIONAL DESIGN SPECIALIST Lymph % (Auto) INSTRUCTIONAL DESIGN SPECIALIST [place] % (Auto) INSTRUCTIONAL DESIGN SPECIALIST Eos % (Auto) INSTRUCTIONAL DESIGN SPECIALIST Baso % (Auto) INSTRUCTIONAL DESIGN SPECIALIST Absolute Neuts (auto) 15.9 H Absolute Lymphs (auto) 1.05 Total Counted 100 Neutrophils % (Manual) 86 H Band Neutrophils % 5 Lymphocytes % (Manual) 6 L Monocytes % (Manual) 3 Diff Path Review May foll Toxic Granulation 3+ Toxic Vacuolation 2+ Platelet Estimate ADEQUATE RBC Morphology NORM C+C Sodium 140 Potassium 3.2 L Chloride 107 Carbon Dioxide 25.0 Anion Gap 8 BUN 34 H Creatinine 1.37 H Estim Creat Clear Calc 40.14 Est GFR (MDRD) Af Amer 64 Est GFR (MDRD) Non-Af 53 L BUN/Creatinine Ratio 24.8 H Glucose 217 H Hemoglobin A1c Calcium 8.2 L Troponin I POC Glucose 264 H 04/17/19 04/17/19 03:55 05:03 WBC RBC Hgb Hct MCV MCH MCHC RDW Std Deviation RDW Coeff of James Plt Count MPV Immature Gran % (Auto) Neut % (Auto) Lymph % (Auto) [place] % (Auto) Eos % (Auto) Baso % (Auto) Absolute Neuts (auto) Absolute Lymphs (auto) Total Counted Neutrophils % (Manual) Band Neutrophils % Lymphocytes % (Manual) Monocytes % (Manual) Diff Path Review Toxic Granulation Toxic Vacuolation Platelet Estimate RBC Morphology Sodium Potassium Chloride Carbon Dioxide Anion Gap BUN Creatinine Estim Creat Clear Calc Est GFR (MDRD) Af Amer Est GFR (MDRD) Non-Af BUN/Creatinine Ratio Glucose Hemoglobin A1c Pending Calcium Troponin I POC Glucose 196 H Microbiology 04/15/19 12:00 Sputum, Expectorated/Coughed Gram Stain - Final 04/15/19 12:00 Sputum, Expectorated/Coughed Respiratory Culture - Preliminary Appears to be normal respiratory alesia. Further studies to follow. 04/15/19 01:05 Urine, Random Urine Culture - Preliminary Culture exhibits no growth. 04/15/19 01:05 Urine, Random Streptococcus pneumoniae Antigen (M - Final Streptococcus pneumonia Ag Medical Necessity - Tobacco Use Smoking Status: Former smoker Tobacco Use: Cigars - Sporadic. Last smoked between 1 to 5 years ago. Assessment/Plan All Active Problems Septic shock (Acute) Acute respiratory failure with hypoxia (Acute) Sepsis (Acute) Community acquired pneumonia (Acute) Hypoxemia (Acute) Skin cancer (Resolved) RECOMMENDATIONS: 1. Give diuretic therapy as tolerated 2. Continue antibiotics to complete a 10-day course 3. Narrow antibiotic spectrum if culture negative at 48 hours 4. Continue BiPAP therapy as necessary 5. Wean oxygen as tolerated 6. Okay to transfer out of the intensive care unit IMPRESSIONS: 1. Septic shock secondary to pneumococcal pneumonia Patient with left lower lobe infiltrate and pneumococcal antigen. Clinical suspicion for pneumococcal pneumonia leading to current situation. Patient has significant hypoxia and likely has an element of diastolic congestive heart failure at this time. Patient's blood pressure appears to be improving with fluid and antibiotics. We will continue with Zosyn therapy for now, but if culture negative at 48 hours for other organisms, narrowing of antibiotic spectrum would be appropriate. 2. Acute hypoxic respiratory failure secondary to pneumococcal pneumonia Patient does not report any history of obstructive lung disease in the past. Patient is on DuoNeb therapy. Patient was placed on Solu-Medrol, but most of hypoxia may be secondary to infectious process with possible element of congestive heart failure. BiPAP rescue should be used as necessary. Patient has responded to Lasix in the past. 3. Acute on chronic kidney disease stage III Continues to improve. Clinical suspicion for prerenal etiology secondary to #1. No indication for renal replacement therapy at this time. Patient will be given supplemental potassium for hypokalemia as indicated. 4. Chronic diastolic congestive heart failure/type II pulmonary hypertension Previous echocardiogram shows elevated pulmonary artery pressures and diastolic dysfunction. Clinical suspicion patient may have an element of pulmonary edema secondary to volume resuscitation with problem #1. We will hold on rate control at this time. Patient was given a single dose of Lasix therapy yesterday. Patient may be at risk for development of A. fib with RVR. Patient is on telemetry. 5. Hypertension/diabetes mellitus type 2/advanced age/obesity Complicates care, management, recovery and prognosis. Patient currently n.p.o. secondary to #2. Reasonable to just follow with sliding scale insulin. Blood pressure medications will be held secondary to #1. Code Visit Inpatient E&M: 73888 Subs Hosp L3
--- NOTE | 2019-04-17 07:37 | PN_ITS ---
Patient Problems: Active and Suspected Problems Septic shock (Acute) Acute respiratory failure with hypoxia (Acute) Sepsis (Acute) Community acquired pneumonia (Acute) Hypoxemia (Acute) Reason for Visit: Follow-up for septic shock, and acute hypoxic respiratory failure secondary to pneumococcal pneumonia Subjective: Patient went into transient A. fib with heart rate in 90s. Patient was started on metoprolol 5 mg IV every 6 hourly and flipped back in sinus rhythm with PVCs. cafeteria monitor reviewed No high-grade fever or chills. T-max 99.9. Pulse ox 95% on 4 L of oxygen. Patient intermittently on BiPAP. Vitals/I&O's: Vital Signs Temp Pulse Resp BP Pulse Ox 99.9 F H 104 H 29 H 121/72 H 95 04/17/19 00:00 04/17/19 07:00 04/17/19 07:00 04/17/19 07:00 04/17/19 07:00 Oxygen Flow Rate (L/min) 4 Oxygen Delivery Method Nasal Cannula Weight: 235 lb 14.314 oz Body Mass Index (BMI) 33.9 Intake and Output for Last 24 Hours 04/15/19 04/16/19 04/17/19 23:59 23:59 23:59 Intake Total 7240.45 / 7240.45 1011.63 / 1251.63 290 / 290 Output Total 575 / 575 1350 / 1600 650 / 650 Balance 6665.45 / 6665.45 -338.37 / -348.37 -360 / -360 General: Alert, Oriented x3, Cooperative HEENT: Atraumatic, PERRLA, EOMI, Normocephalic Neck: Supple, No JVD, Negative Carotid Bruits Lungs: Diminished, Rhonchi, Short of Breath, Tachypneic Cardiovascular: Regular rate, Regular Rhythm, Normal S1, Normal S2, No murmurs Abdomen: Bowel Sounds Present, Soft, Non Tender, Non-Distended Extremities: Capillary Refill Less than 3 Seconds, Edema Skin: No rashes, No breakdown Musculoskeletal: No Tenderness to Palpation of Joints or Extremities, Arthritic Changes Lymphatic: No Cervical, Supraclavicular, or Inguinal Adenopathy Neurological: Cranial nerves II-XII grossly intact, Deep Tendon Reflexes 2+/4 and Symmetrical, Neuro grossly intact Psych/Mental Status: Normal Affect, Appropriate Microbiology Past 72 Hours 04/15/19 12:00 Sputum, Expectorated/Coughed Gram Stain - Final 04/15/19 12:00 Sputum, Expectorated/Coughed Respiratory Culture - Preliminary Appears to be normal respiratory alesia. Further studies to follow. 04/15/19 01:05 Urine, Random Urine Culture - Preliminary Culture exhibits no growth. 04/15/19 01:05 Urine, Random Streptococcus pneumoniae Antigen (M - Final Streptococcus pneumonia Ag Laboratory Results 04/16/19 12:19: POC Glucose 210 H 04/16/19 17:40: POC Glucose 242 H 04/16/19 22:51: POC Glucose 264 H 04/17/19 03:55: WBC 17.5 H, RBC 3.37 L, Hgb 10.4 L, Hct 31.6 L, MCV 93.8, MCH 30.9, MCHC 32.9, RDW Std Deviation 46.6 H, RDW Coeff of James 13.8, Plt Count 152, MPV 10.1, Immature Gran % (Auto) CARDIOTHORACIC ANESTHESIA TECHNICIAN, Neut % (Auto) CARDIOTHORACIC ANESTHESIA TECHNICIAN, Lymph % (Auto) CARDIOTHORACIC ANESTHESIA TECHNICIAN, Clinton % (Auto) CARDIOTHORACIC ANESTHESIA TECHNICIAN, Eos % (Auto) CARDIOTHORACIC ANESTHESIA TECHNICIAN, Baso % (Auto) CARDIOTHORACIC ANESTHESIA TECHNICIAN, Absolute Neuts (auto) 15.9 H, Absolute Lymphs (auto) 1.05, Total Counted 100, Neutrophils % (Manual) 86 H, Band Neutrophils % 5, Lymphocytes % (Manual) 6 L, Monocytes % (Manual) 3, Diff Path Review May foll, Toxic Granulation 3+, Toxic Vacuolation 2+, Platelet Estimate ADEQUATE, RBC Morphology NORM C+C 04/17/19 03:55: Sodium 140, Potassium 3.2 L, Chloride 107, Carbon Dioxide 25.0, Anion Gap 8, BUN 34 H, Creatinine 1.37 H, Estim Creat Clear Calc 40.14, Est GFR (MDRD) Af Amer 64, Est GFR (MDRD) Non-Af 53 L, BUN/Creatinine Ratio 24.8 H, Glucose 217 H, Calcium 8.2 L 04/17/19 03:55: Hemoglobin A1c Pending 04/17/19 05:03: POC Glucose 196 H Current Medications Acetaminophen (Tylenol) 650 mg PO Q6H PRN PRN PRN Reason: Pain Score 1-10/Temp > 100.7 F Albuterol Sulfate (Ventolin Aerosols) 2.5 mg INHALATION Q2H PRN PRN PRN Reason: SOB/Wheezing Albuterol/Ipratropium (Duoneb) 3 ml INHALATION Q4HWA.RT [facility] Last Admin: 04/17/19 06:54 Dose: 3 ml Documented by: Aspirin (Aspirin, Baby) 81 mg PO DAILY@0800 [facility] Last Admin: 04/16/19 09:22 Dose: 81 mg Documented by: Chlorhexidine Gluconate () 1 each TOPICAL DAILY [facility] Last Admin: 04/16/19 09:22 Dose: 1 each Documented by: Dextrose (D50w Syringe) 0 gm IV X1 PRN; Protocol PRN Reason: Hypoglycemia Enoxaparin Sodium (Lovenox) 40 mg SC DAILY [facility] Last Admin: 04/16/19 09:22 Dose: 40 mg Documented by: Ferrous Gluconate (Ferrous Gluconate) 324 mg PO DAILY@0800 [facility] Last Admin: 04/16/19 12:23 Dose: 324 mg Documented by: Glucagon () 1 mg IM .X1 PRN PRN Reason: Hypoglycemia Guaifenesin (Mucinex) 1,200 mg PO BID [facility] Last Admin: 04/16/19 22:54 Dose: 1,200 mg Documented by: Sodium Chloride () 250 mls @ 15 mls/hr IV .[id number] PRN PRN Reason: Saline Flush Last Infusion: 04/16/19 23:01 Dose: 0 mls/hr Documented by: Piperacillin Sod/Tazobactam (Sod 3.375 gm/ Sodium Chloride) 50 mls @ 12.5 mls/hr IV Q8 [facility] Last Admin: 04/17/19 05:05 Dose: 12.5 mls/hr Documented by: Insulin Human Lispro (Humalog Kwikpen (Bkc)) 0 unit SC Q6 [facility]; Protocol Last Admin: 04/17/19 05:06 Dose: 1 unit Documented by: Labetalol HCl (Trandate) 10 mg IV Q4H PRN PRN PRN Reason: SBP > 160 Melatonin (Melatonin) 3 mg PO QHS PRN PRN PRN Reason: INSOMNIA Last Admin: 04/15/19 21:17 Dose: 3 mg Documented by: Methylprednisolone (Solu-Medrol) 40 mg IV Q8 [facility] Last Admin: 04/17/19 05:05 Dose: 40 mg Documented by: Metoprolol Tartrate (Lopressor (Beta Ayala)) 5 mg IV Q6 [facility] Last Admin: 04/17/19 05:05 Dose: 5 mg Documented by: Ondansetron HCl (Zofran) 4 mg IV Q8H PRN PRN PRN Reason: NAUSEA/VOMITING Potassium Chloride (K-Dur) 20 meq PO BIDCM [facility] Stop: 04/17/19 17:01 Senna/Docusate Sodium (Senokot-S, Estefany-Colace) 2 tablet PO BID PRN PRN PRN Reason: Constipation Sodium Chloride () 10 - 40 ml IV UD PRN PRN Reason: SALINE FLUSH Last Admin: 04/16/19 20:38 Dose: 10 ml Documented by: STROKE Vital Signs/Narrative: Vital Signs Pulse Resp BP Pulse Ox 04/17/19 07:00 104 H 29 H 121/72 H 95 04/17/19 06:56 87 24 H 94 04/17/19 06:00 83 27 H 118/64 100 04/17/19 05:05 113 H 04/17/19 05:00 86 26 H 124/78 H 97 04/17/19 04:00 113 H 28 H 132/73 H 93 04/17/19 03:50 96 Medical Necessity - Tobacco Use Smoking Status: Former smoker Tobacco Use: Cigars - Sporadic. Last smoked between 1 to 5 years ago. Assessment/Plan All Active Problems Septic shock (Acute) Acute respiratory failure with hypoxia (Acute) Sepsis (Acute) Community acquired pneumonia (Acute) Hypoxemia (Acute) Skin cancer (Resolved) This 83-year-old gentleman with multiple comorbidities including type 2 diabetes mellitus, AND hypertension was admitted through ER for 4-day history of fever, shortness of breath, productive cough mucus but he got more symptomatic in the last 2 days. Patient further said he has on and off cough for few months and had pneumonia about 5 to 6 months ago. Chest x-ray shows lingular infiltrate right middle lobe infiltrate. Patient was managed on septic shock protocol because significant bandemia, elevated creatinine 1.7 and lactic acidosis 4.1. Patient was admitted in ICU. In ICU, patient reports improvement in shortness of breath and pleuritic chest pain. Blood pressure on lower side 87/52 although it was 132/65 in ER. Pulse ox 91% on 50% BiPAP 1. Septic shock secondary to pneumococcal pneumonia: Urinary antigen is positive of strep pneumonia. Initially patient was started on vancomycin and Zosyn. Vancomycin discontinued. Discussed with edger tailer. Blood pressure borderline low. Patient is hesitant about central line therefore PICC line was ordered. Cultures x2 are pending. 04/16: Patient has right arm PICC line. Did not require vasopressor support. BP has improved. Continue antibiotic. 04/17: Patient maintain blood pressure in the range of 120s. Patient is hemodynamically stable to be transferred to PCU. 2. Acute hypoxic respiratory failure secondary to pneumococcal pneumonia: ABG was done. 7.35/35/64 on 12/550% FiO2 consistent with acute hypoxic respiratory failure. K3.3, bicarb 22, anion gap 11. Hypokalemia mild, replaced. 04/16: Respiratory status has improved. Oxygen through nasal cannula and intermittent BiPAP support as per edger tailer. 04/17: On oxygen intermittent with BiPAP. Mild tachypneic. Transient A. fib: Resolved. Currently normal sinus rhythm with PVCs. Patient on metoprolol 5 mg IV every 6 hourly. 3. Acute kidney injury on chronic kidney disease stage III with hypokalemia: Patient has slow increase in BUN and creatinine since June 2018. BUN/creatinine 23/1.4 in June 2018. BUN/Creatinine 30/1.58. Patient has mild ankle edema. At home patient is on metformin, amlodipine, metoprolol, lisinopril and HCTZ. Nephrotoxic medications are held. 04/16: BUN/creatinine 30/1.39 shows improvement. 1 dose of Lasix 10 mg IV given. 04/17: Kidney function stable, BUN/creatinine 34/1.37. Mild hypokalemia K3.2. Potassium being replaced. 4. Diabetes mellitus type 2: Accu-Chek with Humalog sliding scale. A1c oscar rrow a.m. 04/16: Blood sugar between 182-235. We will titrate up the insulin. 04/17: Started on Lantus 10 units subcutaneous at breakfast. 5. Chronic diastolic heart failure/pulmonary hypertension: Patient had echo done in May 2018. Reported as EF 55% with normal LV systolic function. Stage I diastolic dysfunction. RVSP 50 mmHg consistent with mild to moderate pulmonary hypertension. EKG normal sinus rhythm. 04/16: Patient states his left leg generally is more edematous than right leg. Ultrasound venous Doppler ordered. On exam there is no tenderness or swelling of calf or thigh muscles. 6. Other multiple comorbidities include hypertension, mixed chronic microcytic anemia/iron deficiency anemia: Multiple comorbidities complicates the present care and expect difficult and delay recovery DVT prophylaxis: On Lovenox 40 mg subcu daily. Discontinue if platelet count drops less than 50,000 or hemoglobin less than 8 g% Microbiology Past 72 Hours 04/15/19 12:00 Sputum, Expectorated/Coughed Gram Stain - Final 04/15/19 01:05 Urine, Random Streptococcus pneumoniae Antigen (M - Final Streptococcus pneumonia Ag Microbiology Past 72 Hours 04/15/19 12:00 Sputum, Expectorated/Coughed Gram Stain - Final 04/15/19 12:00 Sputum, Expectorated/Coughed Respiratory Culture - Prelimin nohemi Appears to be normal respiratory alesia. Further studies to follow. 04/15/19 01:05 Urine, Random Urine Culture - Preliminary Culture exhibits no growth. 04/15/19 01:05 Urine, Random Streptococcus pneumoniae Antigen (M - Final Streptococcus pneumonia Ag Laboratory Results 04/16/19 12:19: POC Glucose 210 H 04/16/19 17:40: POC Glucose 242 H 04/16/19 22:51: POC Glucose 264 H 04/17/19 03:55: WBC 17.5 H, RBC 3.37 L, Hgb 10.4 L, Hct 31.6 L, MCV 93.8, MCH 30.9, MCHC 32.9, RDW Std Deviation 46.6 H, RDW Coeff of James 13.8, Plt Count 152, MPV 10.1, Immature Gran % (Auto) CARDIOTHORACIC ANESTHESIA TECHNICIAN, Neut % (Auto) CARDIOTHORACIC ANESTHESIA TECHNICIAN, Lymph % (Auto) CARDIOTHORACIC ANESTHESIA TECHNICIAN, Clinton % (Auto) CARDIOTHORACIC ANESTHESIA TECHNICIAN, Eos % (Auto) CARDIOTHORACIC ANESTHESIA TECHNICIAN, Baso % (Auto) CARDIOTHORACIC ANESTHESIA TECHNICIAN, Absolute Neuts (auto) 15.9 H, Absolute Lymphs (auto) 1.05, Total Counted 100, Neutrophils % (Manual) 86 H, Band Neutrophils % 5, Lymphocytes % (Manual) 6 L, Monocytes % (Manual) 3, Diff Path Review May foll, Toxic Granulation 3+, Toxic Vacuolation 2+, Platelet Estimate ADEQUATE, RBC Morphology NORM C+C 04/17/19 03:55: Sodium 140, Potassium 3.2 L, Chloride 107, Carbon Dioxide 25.0, Anion Gap 8, BUN 34 H, Creatinine 1.37 H, Estim Creat Clear Calc 40.14, Est GFR (MDRD) Af Amer 64, Est GFR (MDRD) Non-Af 53 L, BUN/Creatinine Ratio 24.8 H, Glucose 217 H, Calcium 8.2 L 04/17/19 03:55: Hemoglobin A1c Pending 04/17/19 05:03: POC Glucose 196 H Clinical Impression(s) from Imaging Studies Chest X-Ray 04/15/19 00:20 IMPRESSION: Lingular infiltrate with possible left lower lobe and right middle lobe infiltrates as described above. Code Visit Inpatient E&M: 29658 Subs Hosp L3
[2019-04-17 07:56] LABS: Hemoglobin A1c 7.3 % (4.2-6.3)
--- NOTE | 2019-04-17 08:13 | VDLE_ITS ---
Reason For Study: swelling RIGHT LEFT GSV is normal. GSV is normal. CFV is compressible, spontaneous, phasic, CFV is compressible, spontaneous, phasic, competent and demonstrates normal competent, and demonstrates normal augmentation. augmentation. FV is compressible, spontaneous, phasic, FV is compressible, spontaneous, phasic, competent and demonstrates normal competent and demonstrates normal augmentation. augmentation. POP V is compressible, spontaneous, phasic, POP V is compressible, spontaneous, phasic, competent and demonstrates normal competent and demonstrates normal augmentation. augmentation. T/P Trunk is compressible. T/P Trunk is compressible. PTV is compressible. PTV is compressible. RT PerV is compressible. LT PerV is compressible. Procedure Exam performed portable in patient room. The exam was diagnostic. The study was technically difficult. A preliminary report was called and/or faxed to [facility]. Interpretation Summary No evidence for acute deep venous thrombosis bilateral lower extremities with patent and compressible bilateral great saphenous veins. This examination was noted to be technically difficult Ordering Physician: Nilesh Burrell Referring Physician: Yair Hart Performed By: Alem Cannon, JOHN, RVT
[2019-04-17] MEDS: Aspirin 81 MG TAB.CHEW PO (09:47)
[2019-04-17] MEDS: Ferrous Gluconate 324 MG Tablet PO (09:47)
[2019-04-17] MEDS: guaiFENesin 1,200 MG Tablet 1200 MG PO ×2 (09:47→21:18)
--- NOTE | 2019-04-17 10:04 | CASEMGMT ---
LEXY ANDRE Note: Intro role of CM to patient in room. Discussed therapy notes, pt's stating he has been weaker at home past few weeks. RN JES discussed benefits of therapy @ SNF for short term Rehab and Home Health. Pt states I may need that, I've had trouble @ home recently. LEXY ANRDE let pt know he would be working with therapy today and then CM would speak with him again re: recommendations on dc. -Pt does not wear home oxygen. My need Home oxygen testing prior to dc. Jerry NIXN RN ACM
[2019-04-17] MEDS: Enoxaparin 40 MG/0.4 ML Syringe SC (11:08)
[2019-04-17 11:15] LABS: Bedside Glucose 218 mg/dL (70-110)
[2019-04-17] MEDS: 0.9% Saline Lock 10 ML Syringe IV ×6 (12:12→23:18)
[2019-04-17 12:31] LABS: Pathologist Review Reviewed
[2019-04-17 12:34] LABS: Pathologist Review Reviewed
[2019-04-17 16:30] LABS: Bedside Glucose 318 mg/dL (70-110)
[2019-04-18] VITALS (22 sets, daily range): BP systolic 154–174; BP diastolic 75–91; PULSE 65–146; RESP 12–32; TEMP 36.3–37.3; O2SAT 92–98
--- NOTE | 2019-04-18 04:04 | NURSING ---
This RN called respiratory at this time for a breathing treatment.
[2019-04-18] MEDS: Acetaminophen 325 MG Tablet 650 MG PO (04:13)
--- NOTE | 2019-04-18 04:17 | EKG12_ITS ---
Test Reason : CP Blood Pressure : / mmHG Vent. Rate : 102 BPM Atrial Rate : 156 BPM P-R Int : 000 ms QRS Dur : 088 ms QT Int : 372 ms P-R-T Axes : 000 047 004 degrees QTc Int : 484 ms Atrial fibrillation with rapid ventricular response Abnormal ECG When compared with ECG of 17-APR-2019 03:55, MANUAL COMPARISON REQUIRED, DATA IS UNCONFIRMED Confirmed by MAYRA NIÑO ([id number]), editor & co founder AC MONIQUE ([id number]) on 04/23/2019 10:54:23 AM Referred By: Cristian Hazel Confirmed By:MAYRA NIÑO
[2019-04-18] MEDS: Ipratropium/Albuterol Sulfate 3 ML AMPUL.NEB INHALATION ×5 (04:19→19:43)
[2019-04-18 04:50] LABS: Bedside Glucose 172 mg/dL (70-110)
[2019-04-18] MEDS: 0.9% Saline Lock 10 ML Syringe IV ×5 (04:55→21:34)
--- NOTE | 2019-04-18 04:55 | RAD_ITS ---
STUDY: X-RAY CHEST REASON FOR EXAM: Male, 83 years old. Tachypnea. TECHNIQUE: Single AP portable view of the chest. COMPARISON: April 15, 2019. FINDINGS: Cardiac monitoring leads are present. Right-sided PICC line is present with the tip of the catheter probably in the right atrium. The right lung is hyperexpanded. There appears to be moderate elevation of the left hemidiaphragm, new since the previous study. This may related to atelectasis. There is evidence for left basilar airspace consolidation. There is also heterogeneous right basilar airspace consolidation. Bronchovascular markings are prominent in both lungs. There appear to be small bilateral pleural effusions. There is mild cardiac enlargement. Normal mediastinum and bennett. There is prominence of the pulmonary hilar arteries with peripheral pulmonary vascular congestion. There is atherosclerotic calcification of the aortic arch with tortuosity. There are diffuse degenerative changes of the visualized thoracic spine. Normal visualized ribs, clavicles, and shoulders. There is no demonstrated abnormality of the visualized soft tissue structures of the upper abdomen. RAD/Chest PA and Lateral IMPRESSION: 1. Persistent left basilar and right basilar airspace consolidations likely representing pneumonia. 2. Cardiomegaly and mild pulmonary congestion. Electronically Signed: Alanna Baig MD at 6:02 EST , Service support ,
[2019-04-18 04:57] LABS: Absolute Lymphocyte Count 0.64 X10^3/uL (0.83-4.51); Absolute Neutrophil Count 12.5 X10^3/uL (2.0-7.7); Basophil# 0.07 X10^3/uL; Basophil% 0.5 % (0-1); Eosinophil# 0.08 X10^3/uL; Eosinophils% 0.6 % (0-5); Hematocrit 41.7 % (40-54); Hemoglobin 13.7 g/dL (13.0-16.5); Lymphocyte # 0.64 X10^3/ul (4.0); Lymphocyte % 4.5 % (19-41); Mean Corp Hgb Conc 32.9 g/dL (32-36); Mean Corpuscular Hgb 30.5 pg (27.0-32.0); Mean Corpuscular Volume 92.9 fL (80-94); Monocyte# 0.58 X10^3/uL; Monocyte% 4.1 % (0-10); NRBC Flagged by Analyzer 0.1 % (0-5); Neutrophil # 12.54 X10^3/uL (2.7-7.7); POSITIVE MORPHOLOGY YES; Platelet Count 140 K/mm3 (150-450); RBC Distribution Width CV 13.8 % (11.6-14.6); RBC Distribution Width SD 47.1 fl (35.1-43.9); Red Blood Count 4.49 M/mm3 (4.6-6.2); White Blood Count 14.1 K/mm3 (4.4-11.0)
[2019-04-18 05:01] LABS: Differential Indicated SCAN CRITERIA MET
[2019-04-18 05:12] LABS: Anion Gap 7 (5-15); BUN 40 mg/dL (7-18); BUN/Creat Ratio 30.1 RATIO (10-20); Calcium,Total 8.4 mg/dL (8.5-10.1); Chloride 109 mmol/L (98-107); Creatinine, Serum 1.33 mg/dL (0.70-1.30); EST Glomerular Filtration Rate 54 mL/min (>60); Est Glom Filt Rate - Afr Amer 66 mL/min (>60); Estimated Creatinine Clearance 41.35 ml/min; Glucose 192 mg/dL (74-106); Potassium 3.6 mmol/L (3.5-5.1); Sodium Level 143 mmol/L (136-145)
--- NOTE | 2019-04-18 05:33 | NURSING ---
VS late d/t taking pt to xray for a STAT CXR.
[2019-04-18] MEDS: Metoprolol Tartrate 5 MG/5 ML Vial IV (05:49)
[2019-04-18] MEDS: Insulin Lispro 100 UNIT/ML INSULN.PEN SC ×4 (06:03→21:22)
[2019-04-18 06:46] LABS: Bedside Glucose 197 mg/dL (70-110)
--- NOTE | 2019-04-18 09:23 | PN_ITS ---
Patient Problems: Active and Suspected Problems Septic shock (Acute) Acute respiratory failure with hypoxia (Acute) Sepsis (Acute) Community acquired pneumonia (Acute) Hypoxemia (Acute) Subjective: Patient did okay overnight. Patient has been going back and forth between BiPAP and nasal cannula oxygen. Patient states he feels subjectively improved compared to previous. No chest pain is reported. - Physical Exam Vitals/I&O's: Vital Signs Temp Pulse Resp BP Pulse Ox 36.9 C 82 18 160/83 H 94 04/18/19 09:17 04/18/19 09:17 04/18/19 09:17 04/18/19 09:17 04/18/19 09:17 Oxygen Flow Rate (L/min) 3 Oxygen Delivery Method Nasal Cannula Weight: 108 kg Body Mass Index (BMI) 33.9 Intake and Output for Last 24 Hours 04/16/19 04/17/19 04/18/19 23:59 23:59 23:59 Intake Total 1011.63 / 1251.63 1190 / 1190 520 / 520 Output Total 1350 / 1600 1000 / 1000 225 / 225 Balance -338.37 / -348.37 190 / 190 295 / 295 General: Alert, Oriented x3, Cooperative, No apparent distress, Well developed, Well nourished, - - Good BiPAP synchrony. On BiPAP during my evaluation HEENT: Atraumatic, PERRLA, EOMI, Normocephalic, - - No scleral icterus or injection noted. Glasses not in place. Oral: Moist Mucosa, No Gingival or Mucosal Lesions/ Ulcerations Neck: Supple, No JVD, No Nodes, Trachea Midline Lungs: No wheeze, No rales, Diminished, Rhonchi, - - Symmetric expansion Cardiovascular: Regular rate, Regular Rhythm, Normal S1, Normal S2, No murmurs, No rub noted, No Gallop, - - Occasional PACs noted. Patient did have a 4 beat run of V. tach Abdomen: Bowel Sounds Present, Soft, Non Tender, Non-Distended Extremities: No cyanosis, Capillary Refill Less than 3 Seconds, Edema Skin: No rashes, No breakdown Musculoskeletal: No Tenderness to Palpation of Joints or Extremities Lymphatic: No Cervical, Supraclavicular, or Inguinal Adenopathy Neurological: Cranial nerves II-XII grossly intact, Neuro grossly intact, Motor Exam 5/5 strength throughout Psych/Mental Status: Alert and oriented to time, place, person, mood and affect Microbiology Past 72 Hours 04/15/19 12:00 Sputum, Expectorated/Coughed Gram Stain - Final 04/15/19 12:00 Sputum, Expectorated/Coughed Respiratory Culture - Final Mixed normal respiratory alesia. No Streptococcus pneumoniae, beta-hemolytic Streptococcus or Staphylococcus aureus isolated. 04/15/19 01:05 Urine, Random Urine Culture - Final Culture exhibits no growth. 04/15/19 00:40 Blood Culture (Wb) - Anticubital Left Blood Culture - Preliminary No growth in 48 hours. 04/15/19 00:15 Blood Culture (Wb) - Right Forearm Blood Culture - Preliminary No growth in 48 hours. 04/15/19 01:05 Urine, Random Streptococcus pneumoniae Antigen (M - Final Streptococcus pneumonia Ag Laboratory Results 04/15/19 00:15: Diff Path Review Reviewed 04/17/19 03:55: Diff Path Review Reviewed 04/17/19 11:12: POC Glucose 218 H 04/17/19 16:23: POC Glucose 318 H 04/17/19 23:09: POC Glucose 172 H 04/18/19 04:50: WBC 14.1 H, RBC 4.49 L, Hgb 13.7, Hct 41.7, MCV 92.9, MCH 30.5, MCHC 32.9, RDW Std Deviation 47.1 H, RDW Coeff of James 13.8, Plt Count 140 L, MPV 10.0, Immature Gran % (Auto) 1.300 H, Neut % (Auto) 89.0 H, Lymph % (Auto) 4.5 L , [place] % (Auto) 4.1, Eos % (Auto) 0.6, Baso % (Auto) 0.5, Absolute Neuts (auto) 12.5 H, Absolute Lymphs (auto) 0.64 L, Nucleated RBC % 0.1 04/18/19 04:50: Sodium 143, Potassium 3.6, Chloride 109 H, Carbon Dioxide 27.0, Anion Gap 7, BUN 40 H, Creatinine 1.33 H, Estim Creat Clear Calc 41.35, Est GFR (MDRD) Af Amer 66, Est GFR (MDRD) Non-Af 54 L, BUN/Creatinine Ratio 30.1 H, Glucose 192 H, Calcium 8.4 L 04/18/19 06:01: POC Glucose 197 H Clinical Impression(s) from Imaging Studies Chest X-Ray 04/18/19 04:55 IMPRESSION: 1. Persistent left basilar and right basilar airspace consolidations likely representing pneumonia. 2. Cardiomegaly and mild pulmonary congestion. Electronically Signed: Alanna Baig MD at 6:02 EST , Service support , Current Medications Acetaminophen (Tylenol) 650 mg PO Q6H PRN PRN PRN Reason: Pain Score 1-10/Temp > 100.7 F Last Admin: 04/18/19 04:13 Dose: 650 mg Documented by: Albuterol Sulfate (Ventolin Aerosols) 2.5 mg INHALATION Q2H PRN PRN PRN Reason: SOB/Wheezing Albuterol/Ipratropium (Duoneb) 3 ml INHALATION Q4HWA.RT [facility] Last Admin: 04/18/19 06:56 Dose: 3 ml Documented by: Aspirin (Aspirin, Baby) 81 mg PO DAILY@0800 [facility] Last Admin: 04/17/19 09:47 Dose: 81 mg Documented by: Dextrose (D50w Syringe) 0 gm IV X1 PRN; Protocol PRN Reason: Hypoglycemia Enoxaparin Sodium (Lovenox) 40 mg SC DAILY [facility] Last Admin: 04/17/19 11:08 Dose: 40 mg Documented by: Ferrous Gluconate (Ferrous Gluconate) 324 mg PO DAILY@0800 [facility] Last Admin: 04/17/19 09:47 Dose: 324 mg Documented by: Glucagon () 1 mg IM .X1 PRN PRN Reason: Hypoglycemia Guaifenesin (Mucinex) 1,200 mg PO BID [facility] Last Admin: 04/17/19 21:18 Dose: 1,200 mg Documented by: Sodium Chloride () 250 mls @ 15 mls/hr IV .[id number] PRN PRN Reason: Saline Flush Last Infusion: 04/17/19 19:47 Dose: Infused Documented by: Piperacillin Sod/Tazobactam (Sod 3.375 gm/ Sodium Chloride) 50 mls @ 12.5 mls/hr IV Q8 [facility] Last Admin: 04/18/19 05:48 Dose: 12.5 mls/hr Documented by: Insulin Glargine (Lantus ([facility])) 10 units SC BREAKFAST [facility] Last Admin: 04/17/19 10:50 Dose: 10 units Documented by: Insulin Human Lispro (Humalog Kwikpen ([facility])) 0 unit SC Q6 [facility]; Protocol Last Admin: 04/18/19 06:03 Dose: 2 unit Documented by: Labetalol HCl (Trandate) 10 mg IV Q4H PRN PRN PRN Reason: SBP > 160 Melatonin (Melatonin) 3 mg PO QHS PRN PRN PRN Reason: INSOMNIA Last Admin: 04/15/19 21:17 Dose: 3 mg Documented by: Methylprednisolone (Solu-Medrol) 40 mg IV Q8 [facility] Last Admin: 04/18/19 05:46 Dose: 40 mg Documented by: Metoprolol Tartrate (Lopressor (Beta Ayala)) 5 mg IV Q6 [facility] Last Admin: 04/18/19 05:49 Dose: 5 mg Documented by: Ondansetron HCl (Zofran) 4 mg IV Q8H PRN PRN PRN Reason: NAUSEA/VOMITING Senna/Docusate Sodium (Senokot-S, Estefany-Colace) 2 tablet PO BID PRN PRN PRN Reason: Constipation Sodium Chloride () 10 - 40 ml IV UD PRN PRN Reason: SALINE FLUSH Last Admin: 04/18/19 05:58 Dose: 20 ml Documented by: Medical Necessity - Tobacco Use Smoking Status: Former smoker Tobacco Use: Cigars - Sporadic. Last smoked between 1 to 5 years ago. Assessment/Plan All Active Problems Septic shock (Acute) Acute respiratory failure with hypoxia (Acute) Sepsis (Acute) Community acquired pneumonia (Acute) Hypoxemia (Acute) Skin cancer (Resolved) RECOMMENDATIONS: 1. Consider diuretic therapy as tolerated 2. Consider narrowing of antibiotic spectrum. Complete 10 days. 3. Increase activity as tolerated 4. Continue BiPAP therapy as necessary 5. Wean oxygen as tolerated IMPRESSIONS: 1. Septic shock secondary to pneumococcal pneumonia Patient with left lower lobe infiltrate and pneumococcal antigen. Clinical suspicion for pneumococcal pneumonia leading to current situation. Patient has significant hypoxia and likely has an element of diastolic congestive heart failure at this time. Patient responded well to fluid boluses initially, but may benefit from diuretic therapy at this time. Patient is come back with pneumococcal antigen positive and no other cultures have come back positive. Reasonable to wean antibiotic spectrum to avoid complications. Would defer to hospitalist. 2. Acute hypoxic respiratory failure secondary to pneumococcal pneumonia Patient does not report any history of obstructive lung disease in the past. Patient is on DuoNeb therapy. Patient was placed on Solu-Medrol, but most of hypoxia may be secondary to infectious process with possible element of congestive heart failure. BiPAP rescue should be used as necessary. Patient has responded to Lasix in the past. 3. Acute on chronic kidney disease stage III Stabilized. Clinical suspicion for prerenal etiology secondary to #1. No indication for renal replacement therapy at this time. Patient will be given supplemental potassium for hypokalemia as indicated. 4. Chronic diastolic congestive heart failure/type II pulmonary hypertension Previous echocardiogram shows elevated pulmonary artery pressures and diastolic dysfunction. Clinical suspicion patient may have an element of pulmonary edema secondary to volume resuscitation with problem #1. 5. Hypertension/diabetes mellitus type 2/advanced age/obesity Complicates care, management, recovery and prognosis. Patient able to take some p.o. with BiPAP breaks. Reasonable to just follow with sliding scale insulin. Blood pressure medications can likely be reinitiated in a stepwise fashion Code Visit Inpatient E&M: 40170 [facility] Hosp L3
[2019-04-18] MEDS: Ferrous Gluconate 324 MG Tablet PO (09:25)
[2019-04-18] MEDS: guaiFENesin 1,200 MG Tablet 1200 MG PO ×2 (09:25→21:24)
[2019-04-18] MEDS: Enoxaparin 40 MG/0.4 ML Syringe SC (09:25)
[2019-04-18] MEDS: Aspirin 81 MG TAB.CHEW PO (09:25)
[2019-04-18 09:36] LABS: Bedside Glucose 230 mg/dL (70-110)
--- NOTE | 2019-04-18 10:28 | CASEMGMT ---
GEOVANNY met with patient to see if he has decided on HH or going to a assisted facility for rehab. He said he wants to go home. GEOVANNY spoke with him about home health and he said he may want that, but he is not sure yet. GEOVANNY told him we can check back. Tiarra NOYOLA MSW
[2019-04-18] MEDS: Furosemide 20 MG/2 ML VIAL IV (10:53)
[2019-04-18] MEDS: Metoprolol Tartrate 25 MG Tablet PO ×2 (12:43→21:23)
[2019-04-18 12:51] LABS: Bedside Glucose 282 mg/dL (70-110)
[2019-04-18 12:51] LABS: Legionella Pneumoph.Abs < 0.91 OD ratio (0.00-0.90); Mycoplasma Pneum AB IgG 163 U/mL (0-99); Mycoplasma pneum. AB IgM < 770 U/mL (0-769)
--- NOTE | 2019-04-18 13:37 | CASEMGMT ---
GEOVANNY spoke with PT and she feels patient would benefit from going somewhere for rehab. SW spoke with patient again and discussed going somewhere for rehab. He said he would go to TCU. GEOVANNY told him SW will check to see if TCU will have any availability. GEOVANNY told him if they do not have any availability he would have to choose another facility. GEOVANNY gave him a list of facilities that were in network with his insurance. GEOVANNY told him SW will check back with him tomorrow and let him know if TCU will have a bed for him. GEOVANNY called [facility] post acute referral line and spoke with Umu. At this time TCU does not have any beds. However, they have plan of care meetings tomorrow and they may have discharges. Tiarra NOYOLA MSW
--- NOTE | 2019-04-18 14:54 | PCM.PN.HOSP ---
Patient Problems: Active and Suspected Problems Septic shock (Acute) Acute respiratory failure with hypoxia (Acute) Sepsis (Acute) Community acquired pneumonia (Acute) Hypoxemia (Acute) Reason for Visit: Follow-up for septic shock secondary to pneumococcal pneumonia and acute hypoxic respiratory failure. Subjective: Patient T-max 99.2 Fahrenheit. Blood pressure 160/83. Heart rate 82/min pulse ox 94% on 3 L of oxygen. Respiratory rate 18 to 26/min Vitals/I&O's: Vital Signs Temp Pulse Resp BP Pulse Ox 98.4 F 88 18 160/83 H 94 04/18/19 09:17 04/18/19 12:43 04/18/19 11:50 04/18/19 09:17 04/18/19 09:17 Oxygen Flow Rate (L/min) 3 Oxygen Delivery Method Nasal Cannula Weight: 238 lb 1.588 oz Body Mass Index (BMI) 33.9 Intake and Output for Last 24 Hours 04/16/19 04/17/19 04/18/19 23:59 23:59 23:59 Intake Total 1011.63 / 1251.63 1190 / 1190 570 / 570 Output Total 1350 / 1600 1000 / 1000 225 / 225 Balance -338.37 / -348.37 190 / 190 345 / 345 General: Alert, Oriented x3, Cooperative HEENT: Atraumatic, PERRLA, EOMI, Normocephalic Neck: Supple, No JVD, Negative Carotid Bruits Lungs: Diminished, Rhonchi, Short of Breath - On exertion Cardiovascular: Regular rate, Regular Rhythm, Normal S1, Normal S2, No murmurs Abdomen: Bowel Sounds Present, Soft, Non Tender, Non-Distended Extremities: Capillary Refill Less than 3 Seconds, Edema Skin: No rashes, No breakdown Musculoskeletal: No Tenderness to Palpation of Joints or Extremities, Arthritic Changes Neurological: Cranial nerves II-XII grossly intact Psych/Mental Status: Normal Affect, Appropriate Microbiology Past 72 Hours 04/15/19 12:00 Sputum, Expectorated/Coughed Gram Stain - Final 04/15/19 12:00 Sputum, Expectorated/Coughed Respiratory Culture - Final Mixed normal respiratory alesia. No Streptococcus pneumoniae, beta-hemolytic Streptococcus or Staphylococcus aureus isolated. 04/15/19 01:05 Urine, Random Urine Culture - Final Culture exhibits no growth. 04/15/19 00:40 Blood Culture (Wb) - Anticubital Left Blood Culture - Preliminary No growth in 48 hours. 04/15/19 00:15 Blood Culture (Wb) - Right Forearm Blood Culture - Preliminary No growth in 48 hours. Laboratory Results 04/15/19 03:55: Legionella pneumophila Ab < 0.91, Mycoplasma pneumon IgG 163 H, Mycoplasma pneumon IgM < 770 04/17/19 16:23: POC Glucose 318 H 04/17/19 23:09: POC Glucose 172 H 04/18/19 04:50: WBC 14.1 H, RBC 4.49 L, Hgb 13.7, Hct 41.7, MCV 92.9, MCH 30.5, MCHC 32.9, RDW Std Deviation 47.1 H, RDW Coeff of James 13.8, Plt Count 140 L, MPV 10.0, Immature Gran % (Auto) 1.300 H, Neut % (Auto) 89.0 H, Lymph % (Auto) 4.5 L, Dunn % (Auto) 4.1, Eos % (Auto) 0.6, Baso % (Auto) 0.5, Absolute Neuts (auto) 12.5 H, Absolute Lymphs (auto) 0.64 L, Nucleated RBC % 0.1 04/18/19 04:50: Sodium 143, Potassium 3.6, Chloride 109 H, Carbon Dioxide 27.0, Anion Gap 7, BUN 40 H, Creatinine 1.33 H, Estim Creat Clear Calc 41.35, Est GFR (MDRD) Af Amer 66, Est GFR (MDRD) Non-Af 54 L, BUN/Creatinine Ratio 30.1 H, Glucose 192 H, Calcium 8.4 L 04/18/19 06:01: POC Glucose 197 H 04/18/19 09:23: POC Glucose 230 H 04/18/19 12:41: POC Glucose 282 H Current Medications Acetaminophen (Tylenol) 650 mg PO Q6H PRN PRN PRN Reason: Pain Score 1-10/Temp > 100.7 F Last Admin: 04/18/19 04:13 Dose: 650 mg Documented by: Albuterol Sulfate (Ventolin Aerosols) 2.5 mg INHALATION Q2H PRN PRN PRN Reason: SOB/Wheezing Albuterol/Ipratropium (Duoneb) 3 ml INHALATION Q4HWA.RT [facility] Last Admin: 04/18/19 11:50 Dose: 3 ml Documented by: Aspirin (Aspirin, Baby) 81 mg PO DAILY@0800 [facility] Last Admin: 04/18/19 09:25 Dose: 81 mg Documented by: Dextrose (D50w Syringe) 0 gm IV X1 PRN; Protocol PRN Reason: Hypoglycemia Enoxaparin Sodium (Lovenox) 40 mg SC DAILY [facility] Last Admin: 04/18/19 09:25 Dose: 40 mg Documented by: Ferrous Gluconate (Ferrous Gluconate) 324 mg PO DAILY@0800 [facility] Last Admin: 04/18/19 09:25 Dose: 324 mg Documented by: Glucagon () 1 mg IM .X1 PRN PRN Reason: Hypoglycemia Guaifenesin (Mucinex) 1,200 mg PO BID [facility] Last Admin: 04/18/19 09:25 Dose: 1,200 mg Documented by: Sodium Chloride () 250 mls @ 15 mls/hr IV .[id number] PRN PRN Reason: Saline Flush Last Infusion: 04/17/19 19:47 Dose: Infused Documented by: Piperacillin Sod/Tazobactam (Sod 3.375 gm/ Sodium Chloride) 50 mls @ 12.5 mls/hr IV Q8 [facility] Last Infusion: 04/18/19 09:48 Dose: Infused Documented by: Insulin Human Lispro (Humalog Kwikpen ([facility])) 0 unit SC ACHS [facility]; Protocol Last Admin: 04/18/19 12:43 Dose: 6 units Documented by: Labetalol HCl (Trandate) 10 mg IV Q4H PRN PRN PRN Reason: SBP > 160 Melatonin (Melatonin) 3 mg PO QHS PRN PRN PRN Reason: INSOMNIA Last Admin: 04/15/19 21:17 Dose: 3 mg Documented by: Methylprednisolone (Solu-Medrol) 40 mg IV Q8 [facility] Last Admin: 04/18/19 05:46 Dose: 40 mg Documented by: Metoprolol Tartrate (Lopressor (Beta Ayala)) 25 mg PO BID [facility] Last Admin: 04/18/19 12:43 Dose: 25 mg Documented by: Nutritional Formula (Lactose Free) (Glucerna Shake) 120 ml PO 4X/DAY [facility] Ondansetron HCl (Zofran) 4 mg IV Q8H PRN PRN PRN Reason: NAUSEA/VOMITING Potassium Chloride (K-Dur) 40 meq PO DAILYCM [facility] Last Admin: 04/18/19 10:54 Dose: 40 meq Documented by: Senna/Docusate Sodium (Senokot-S, Estefany-Colace) 2 tablet PO BID PRN PRN PRN Reason: Constipation Sodium Chloride () 10 - 40 ml IV UD PRN PRN Reason: SALINE FLUSH Last Admin: 04/18/19 10:53 Dose: 10 ml Documented by: STROKE Vital Signs/Narrative: Vital Signs Pulse Resp 04/18/19 12:43 88 04/18/19 11:50 82 18 Medical Necessity - Tobacco Use Smoking Status: Former smoker Tobacco Use: Cigars - Sporadic. Last smoked between 1 to 5 years ago. Assessment/Plan All Active Problems Septic shock (Acute) Acute respiratory failure with hypoxia (Acute) Sepsis (Acute) Community acquired pneumonia (Acute) Hypoxemia (Acute) Skin cancer (Resolved) This 83-year-old gentleman with multiple comorbidities including type 2 diabetes mellitus, AND hypertension was admitted through ER for 4-day history of fever, shortness of breath, productive cough mucus but he got more symptomatic in the last 2 days. Patient further said he has on and off cough for few months and had pneumonia about 5 to 6 months ago. Chest x-ray shows lingular infiltrate right middle lobe infiltrate. Patient was managed on septic shock protocol because significant bandemia, elevated creatinine 1.7 and lactic acidosis 4.1. Patient was admitted in ICU. In ICU, patient reports improvement in shortness of breath and pleuritic chest pain. Blood pressure on lower side 87/52 although it was 132/65 in ER. Pulse ox 91% on 50% BiPAP 1. Septic shock secondary to pneumococcal pneumonia: Urinary antigen is positive of strep pneumonia. Initially patient was started on vancomycin and Zosyn. Vancomycin discontinued. Discussed with teacher citizenship. Blood pressure borderline low. Patient is hesitant about central line therefore PICC line was ordered. Cultures x2 are pending. 04/16: Patient has right arm PICC line. Did not require vasopressor support. BP has improved. Continue antibiotic. 04/17: Patient maintain blood pressure in the range of 120s. Patient is hemodynamically stable to be transferred to PCU. 3: Blood pressure is elevated systolic in 150s to 160s. Resume his blood pressure medications except nephrotoxic medications. Mycoplasma IgG positive. IgM negative. Legionella pneumophila antibody negative 2. Acute hypoxic respiratory failure secondary to pneumococcal pneumonia: ABG was done. 7.35/35/64 on 12/550% FiO2 consistent with acute hypoxic respiratory failure. K3.3, bicarb 22, anion gap 11. Hypokalemia mild, replaced. 04/16: Respiratory status has improved. Oxygen through nasal cannula and intermittent BiPAP support as per teacher citizenship. 04/17: On oxygen intermittent with BiPAP. Mild tachypneic. 04/18: On oxygen. Oxygen requirement has improved Transient A. fib: Resolved. Currently normal sinus rhythm with PVCs. Patient on metoprolol 5 mg IV every 6 hourly. 04/18: Started on metoprolol 25 mg twice daily and discontinue IV metoprolol. 3. Acute kidney injury on chronic kidney disease stage III with hypokalemia: Patient has slow increase in BUN and creatinine since June 2018. BUN/creatinine 23/1.4 in June 2018. BUN/Creatinine 30/1.58. Patient has mild ankle edema. At home patient is on metformin, amlodipine, metoprolol, lisinopril and HCTZ. Nephrotoxic medications are held. 04/16: BUN/creatinine 30/1.39 shows improvement. 1 dose of Lasix 10 mg IV given. 04/17: Kidney function stable, BUN/creatinine 34/1.37. Mild hypokalemia K3.2. Potassium being replaced. 04/18: BUN/creatinine stable, 40/1.33. K3.6. Sodium normal. Patient had 1 dose of Lasix 20 mg IV. 4. Diabetes mellitus type 2: Accu-Chek with Humalog sliding scale. A1c tomorrow a.m. 04/16: Blood sugar between 182-235. We will titrate up the insulin. 04/17: Started on Lantus 10 units subcutaneous at breakfast. 04/18: Glucose is elevated. Lantus increased to 15 units subcutaneous at breakfast and 10 units at bedtime. Glucose between 172-318 5. Chronic diastolic heart failure/pulmonary hypertension: Patient had echo done in May 2018. Reported as EF 55% with normal LV systolic function. Stage I diastolic dysfunction. RVSP 50 mmHg consistent with mild to moderate pulmonary hypertension. EKG normal sinus rhythm. 04/16: Patient states his left leg generally is more edematous than right leg. Ultrasound venous Doppler ordered. On exam there is no tenderness or swelling of calf or thigh muscles. 04/18: Venous Doppler is negative. 6. Other multiple comorbidities include hypertension, mixed chronic microcytic anemia/iron deficiency anemia: Multiple comorbidities complicates the present care and expect difficult and delay recovery DVT prophylaxis: On Lovenox 40 mg subcu daily. Discontinue if platelet count drops less than 50,000 or hemoglobin less than 8 g% Microbiology Past 72 Hours 04/15/19 12:00 Sputum, Expectorated/Coughed Gram Stain - Final 04/15/19 12:00 Sputum, Expectorated/Coughed Respiratory Culture - Final Mixed normal respiratory alesia. No Streptococcus pneumoniae, beta-hemolytic Streptococcus or Staphylococcus aureus isolated. 04/15/19 01:05 Urine, Random Urine Culture - Final Culture exhibits no growth. 04/15/19 00:40 Blood Culture (Wb) - Anticubital Left Blood Culture - Preliminary No growth in 48 hours. 04/15/19 00:15 Blood Culture (Wb) - Right Forearm Blood Culture - Preliminary No growth in 48 hours. Laboratory Results 04/15/19 03:55: Legionella pneumophila Ab < 0.91, Mycoplasma pneumon IgG 163 H, Mycoplasma pneumon IgM < 770 04/17/19 16:23: POC Glucose 318 H 04/17/19 23:09: POC Glucose 172 H 04/18/19 04:50: WBC 14.1 H, RBC 4.49 L, Hgb 13.7, Hct 41.7, MCV 92.9, MCH 30.5, MCHC 32.9, RDW Std Deviation 47.1 H, RDW Coeff of James 13.8, Plt Count 140 L, MPV 10.0, Immature Gran % (Auto) 1.300 H, Neut % (Auto) 89.0 H, Lymph % (Auto) 4.5 L, Dunn % (Auto) 4.1, Eos % (Auto) 0.6, Baso % (Auto) 0.5, Absolute Neuts (auto) 12.5 H, Absolute Lymphs (auto) 0.64 L, Nucleated RBC % 0.1 04/18/19 04:50: Sodium 143, Potassium 3.6, Chloride 109 H, Carbon Dioxide 27.0, Anion Gap 7, BUN 40 H, Creatinine 1.33 H, Estim Creat Clear Calc 41.35, Est GFR (MDRD) Af Amer 66, Est GFR (MDRD) Non-Af 54 L, BUN/Creatinine Ratio 30.1 H, Glucose 192 H, Calcium 8.4 L 04/18/19 06:01: POC Glucose 197 H 04/18/19 09:23: POC Glucose 230 H 04/18/19 12:41: POC Glucose 282 H Clinical Impression(s) from Imaging Studies Chest X-Ray 04/15/19 00:20 IMPRESSION: Lingular infiltrate with possible left lower lobe and right middle lobe infiltrates as described above. Code Visit Inpatient E&M: 77569 [facility] Hosp L3
[2019-04-18 16:46] LABS: Bedside Glucose 311 mg/dL (70-110)
[2019-04-18] MEDS: Glucerna Shake 120 ML LIQUID PO ×2 (17:15→21:34)
[2019-04-18 21:35] LABS: Bedside Glucose 242 mg/dL (70-110)
[2019-04-19] VITALS (21 sets, daily range): BP systolic 122–166; BP diastolic 74–86; PULSE 63–116; RESP 12–24; TEMP 36.6–37.2; O2SAT 92–98
[2019-04-19] MEDS: 0.9% Saline Lock 10 ML Syringe IV ×3 (05:48→16:56)
[2019-04-19] MEDS: Ipratropium/Albuterol Sulfate 3 ML AMPUL.NEB INHALATION ×4 (06:49→20:26)
[2019-04-19 06:53] LABS: Hematocrit 31.5 % (40-54); Hemoglobin 10.3 g/dL (13.0-16.5); Mean Corp Hgb Conc 32.7 g/dL (32-36); Mean Corpuscular Hgb 30.9 pg (27.0-32.0); Mean Corpuscular Volume 94.6 fL (80-94); Mean Platelet Vol. 10.2 fl (6.2-12.0); POSITIVE COUNT YES; POSITIVE MORPHOLOGY YES; Platelet Count 157 K/mm3 (150-450); RBC Distribution Width CV 14.1 % (11.6-14.6); RBC Distribution Width SD 48.9 fl (35.1-43.9); Red Blood Count 3.33 M/mm3 (4.6-6.2); White Blood Count 14.4 K/mm3 (4.4-11.0)
[2019-04-19 07:04] LABS: Differential Indicated MANUAL DIFF
[2019-04-19 07:06] LABS: Bedside Glucose 207 mg/dL (70-110)
[2019-04-19 07:24] LABS: Lymphocyte 8 % (19-41); Monocyte 2 % (0-10); Neutrophil-Band 5 % (0-5); Neutrophil-Segmented 85 % (47-70); Platelet Estimate ADEQUATE (ADEQ); Red Cell Morphology NORM C+C NORMAL (NORM C&C); Total Cells Counted 100 (MANUAL DIFF)
[2019-04-19 07:25] LABS: Reactive Lymphocyte 1+
[2019-04-19 07:26] LABS: Absolute Lymphocyte Count 1.15 X10^3/uL (0.83-4.51)
[2019-04-19 07:28] LABS: Anion Gap 6 (5-15); BUN 52 mg/dL (7-18); BUN/Creat Ratio 36.1 RATIO (10-20); Calcium,Total 8.3 mg/dL (8.5-10.1); Chloride 113 mmol/L (98-107); Creatinine, Serum 1.44 mg/dL (0.70-1.30); EST Glomerular Filtration Rate 50 mL/min (>60); Est Glom Filt Rate - Afr Amer 60 mL/min (>60); Estimated Creatinine Clearance 38.19 ml/min; Glucose 233 mg/dL (74-106); Potassium 4.1 mmol/L (3.5-5.1); Sodium Level 142 mmol/L (136-145)
[2019-04-19] MEDS: Insulin Lispro 100 UNIT/ML INSULN.PEN SC ×4 (07:30→21:57)
[2019-04-19] MEDS: Aspirin 81 MG TAB.CHEW PO (09:23)
[2019-04-19] MEDS: Metoprolol Tartrate 25 MG Tablet PO ×2 (09:23→21:56)
[2019-04-19] MEDS: Ferrous Gluconate 324 MG Tablet PO (09:23)
[2019-04-19] MEDS: Enoxaparin 40 MG/0.4 ML Syringe SC (09:25)
[2019-04-19] MEDS: guaiFENesin 1,200 MG Tablet 1200 MG PO ×2 (09:25→21:56)
[2019-04-19] MEDS: Glucerna Shake 120 ML LIQUID PO ×2 (09:25→13:23)
[2019-04-19] MEDS: levoFLOXacin 500 MG Tablet PO (11:03)
[2019-04-19 11:16] LABS: Bedside Glucose 236 mg/dL (70-110)
[2019-04-19 12:36] LABS: Pathologist Review Reviewed
--- NOTE | 2019-04-19 14:18 | CASEMGMT ---
GEOVANNY spoke with Veronica and she would have a bed possibly /Wednesday for patient. Patient needs a pre-cert before he can go to TCU. Plan: TCU pending insurance approval. Tiarra PETER
--- NOTE | 2019-04-19 14:19 | PN_ITS ---
Patient Problems: Active and Suspected Problems Septic shock (Acute) Acute respiratory failure with hypoxia (Acute) Sepsis (Acute) Community acquired pneumonia (Acute) Hypoxemia (Acute) Reason for Visit: COPD exacerbation and pneumonia Objective: Patient still gets short of breath on walking. Patient walk about 50 feet and felt mildly dizzy/lightheaded and short of breath. He denies feeling weak on his leg but he states shortness of breath stops him. Pulse ox 94% on 3 L. RR 18 to 24/min Vitals/I&O's: Vital Signs Temp Pulse Resp BP Pulse Ox 98.6 F 69 19 H 151/77 H 94 04/19/19 14:06 04/19/19 14:06 04/19/19 14:06 04/19/19 14:06 04/19/19 14:06 Oxygen Flow Rate (L/min) 3 Oxygen Delivery Method Nasal Cannula Weight: 236 lb 8.896 oz Body Mass Index (BMI) 33.9 Intake and Output for Last 24 Hours 04/17/19 04/18/19 04/19/19 23:59 23:59 23:59 Intake Total 1190 / 1190 1771.75 / 1771.75 725.25 / 725.25 Output Total 1000 / 1000 1450 / 1875 925 / 925 Balance 190 / 190 321.75 / -103.25 -199.75 / -199.75 General: Alert, Oriented x3, Cooperative HEENT: Atraumatic, PERRLA, EOMI, Normocephalic Neck: Supple, No JVD, Negative Carotid Bruits Lungs: Diminished - Air entry is diffusely diminished., Rhonchi Cardiovascular: Normal S1, Normal S2, No murmurs, Irregular Rate Abdomen: Bowel Sounds Present, Soft, Non Tender, Non-Distended Extremities: Capillary Refill Less than 3 Seconds, Edema Skin: No rashes, No breakdown Musculoskeletal: No Tenderness to Palpation of Joints or Extremities, Arthritic Changes Neurological: Cranial nerves II-XII grossly intact Psych/Mental Status: Normal Affect, Appropriate Microbiology Past 72 Hours 04/15/19 12:00 Sputum, Expectorated/Coughed Gram Stain - Final 04/15/19 12:00 Sputum, Expectorated/Coughed Respiratory Culture - Final Mixed normal respiratory alesia. No Streptococcus pneumoniae, beta-hemolytic Streptococcus or Staphylococcus aureus isolated. 04/15/19 01:05 Urine, Random Urine Culture - Final Culture exhibits no growth. 04/15/19 00:40 Blood Culture (Wb) - Anticubital Left Blood Culture - Preliminary No growth in 48 hours. 04/15/19 00:15 Blood Culture (Wb) - Right Forearm Blood Culture - Preliminary No growth in 48 hours. Laboratory Results 04/18/19 16:34: POC Glucose 311 H 04/18/19 21:18: POC Glucose 242 H 04/19/19 06:35: WBC 14.4 H, RBC 3.33 L, Hgb 10.3 L, Hct 31.5 L, MCV 94.6 H, MCH 30.9, MCHC 32.7, RDW Std Deviation 48.9 H, RDW Coeff of James 14.1, Plt Count 157, MPV 10.2, Neut % (Auto) Not Reportable, Absolute Neuts (auto) 13.0 H, Absolute Lymphs (auto) 1.15, Total Counted 100, Neutrophils % (Manual) 85 H, Band Neutrophils % 5, Lymphocytes % (Manual) 8 L, Monocytes % (Manual) 2, Diff Path Review Reviewed, Reactive Lymphocytes 1+, Platelet Estimate ADEQUATE, RBC Morphology NORM C+C 04/19/19 06:35: Sodium 142, Potassium 4.1, Chloride 113 H, Carbon Dioxide 23.0, Anion Gap 6, BUN 52 H, Creatinine 1.44 H, Estim Creat Clear Calc 38.19, Est GFR (MDRD) Af Amer 60, Est GFR (MDRD) Non-Af 50 L, BUN/Creatinine Ratio 36.1 H, Glucose 233 H, Calcium 8.3 L 04/19/19 07:00: POC Glucose 207 H 04/19/19 11:07: POC Glucose 236 H Current Medications Acetaminophen (Tylenol) 650 mg PO Q6H PRN PRN PRN Reason: Pain Score 1-10/Temp > 100.7 F Last Admin: 04/18/19 04:13 Dose: 650 mg Documented by: Albuterol Sulfate (Ventolin Aerosols) 2.5 mg INHALATION Q2H PRN PRN PRN Reason: SOB/Wheezing Albuterol/Ipratropium (Duoneb) 3 ml INHALATION Q4HWA.RT CORI Last Admin: 04/19/19 11:28 Dose: 3 ml Documented by: Aspirin (Aspirin, Baby) 81 mg PO DAILY@0800 COUNTS INCLUDE 234 BEDS AT THE [facility] Last Admin: 04/19/19 09:23 Dose: 81 mg Documented by: Dextrose (D50w Syringe) 0 gm IV X1 PRN; Protocol PRN Reason: Hypoglycemia Enoxaparin Sodium (Lovenox) 40 mg SC DAILY COUNTS INCLUDE 234 BEDS AT THE [facility] Last Admin: 04/19/19 09:25 Dose: 40 mg Documented by: Ferrous Gluconate (Ferrous Gluconate) 324 mg PO DAILY@0800 COUNTS INCLUDE 234 BEDS AT THE [facility] Last Admin: 04/19/19 09:23 Dose: 324 mg Documented by: Glucagon () 1 mg IM .X1 PRN PRN Reason: Hypoglycemia Guaifenesin (Mucinex) 1,200 mg PO BID COUNTS INCLUDE 234 BEDS AT THE [facility] Last Admin: 04/19/19 09:25 Dose: 1,200 mg Documented by: Sodium Chloride () 250 mls @ 15 mls/hr IV .[id number] PRN PRN Reason: Saline Flush Last Infusion: 04/19/19 05:50 Dose: 0 mls/hr Documented by: Sodium Chloride () 250 mls @ 15 mls/hr IV .[id number] PRN PRN Reason: Saline Flush Insulin Glargine (Lantus (Bkc)) 10 units SC DINNER COUNTS INCLUDE 234 BEDS AT THE [facility] Last Admin: 04/18/19 17:16 Dose: 10 units Documented by: Insulin Glargine (Lantus (Bkc)) 15 units SC BREAKFAST COUNTS INCLUDE 234 BEDS AT THE [facility] Last Admin: 04/19/19 09:24 Dose: 15 units Documented by: Insulin Human Lispro (Humalog Kwikpen (Bk)) 0 unit SC ACHS COUNTS INCLUDE 234 BEDS AT THE [facility]; Protocol Last Admin: 04/19/19 11:08 Dose: 4 units Documented by: Labetalol HCl (Trandate) 10 mg IV Q4H PRN PRN PRN Reason: SBP > 160 Levofloxacin (Levaquin Tablet) 500 mg PO DAILY@0600 COUNTS INCLUDE 234 BEDS AT THE [facility] Last Admin: 04/19/19 11:03 Dose: 500 mg Documented by: Melatonin (Melatonin) 3 mg PO QHS PRN PRN PRN Reason: INSOMNIA Last Admin: 04/15/19 21:17 Dose: 3 mg Documented by: Methylprednisolone (Solu-Medrol) 40 mg IV Q8 COUNTS INCLUDE 234 BEDS AT THE [facility] Last Admin: 04/19/19 13:24 Dose: 40 mg Documented by: Metoprolol Tartrate (Lopressor (Beta Ayala)) 25 mg PO BID COUNTS INCLUDE 234 BEDS AT THE [facility] Last Admin: 04/19/19 09:23 Dose: 25 mg Documented by: Nutritional Formula (Lactose Free) (Glucerna Shake) 120 ml PO 4X/DAY COUNTS INCLUDE 234 BEDS AT THE [facility] Last Admin: 04/19/19 13:23 Dose: 120 ml Documented by: Ondansetron HCl (Zofran) 4 mg IV Q8H PRN PRN PRN Reason: NAUSEA/VOMITING Potassium Chloride (K-Dur) 40 meq PO DAILYCM COUNTS INCLUDE 234 BEDS AT THE [facility] Last Admin: 04/19/19 09:32 Dose: 40 meq Documented by: Senna/Docusate Sodium (Senokot-S, Estefany-Colace) 2 tablet PO BID PRN PRN PRN Reason: Constipation Sodium Chloride () 10 - 40 ml IV UD PRN PRN Reason: SALINE FLUSH Last Admin: 04/19/19 13:24 Dose: 10 ml Documented by: STROKE Vital Signs/Narrative: Vital Signs Temp Pulse Resp BP Pulse Ox 04/19/19 14:06 98.6 F 69 19 H 151/77 H 94 04/19/19 11:27 74 18 93 04/19/19 11:24 66 Medical Necessity - Tobacco Use Smoking Status: Former smoker Tobacco Use: Cigars - Sporadic. Last smoked between 1 to 5 years ago. Assessment/Plan All Active Problems Septic shock (Acute) Acute respiratory failure with hypoxia (Acute) Sepsis (Acute) Community acquired pneumonia (Acute) Hypoxemia (Acute) Skin cancer (Resolved) This 83-year-old gentleman with multiple comorbidities including type 2 diabetes mellitus, AND hypertension was admitted through ER for 4-day history of fever, shortness of breath, productive cough mucus but he got more symptomatic in the last 2 days. Patient further said he has on and off cough for few months and had pneumonia about 5 to 6 months ago. Chest x-ray shows lingular infiltrate right middle lobe infiltrate. Patient was managed on septic shock protocol because significant bandemia, elevated creatinine 1.7 and lactic acidosis 4.1. Patient was admitted in ICU. In ICU, patient reports improvement in shortness of breath and pleuritic chest pain. Blood pressure on lower side 87/52 although it was 132/65 in ER. Pulse ox 91% on 50% BiPAP 1. Septic shock secondary to pneumococcal pneumonia: Urinary antigen is positive of strep pneumonia. Initially patient was started on vancomycin and Zosyn. Vancomycin discontinued. Discussed with insurance sales supervisor. Blood pressure borderline low. Patient is hesitant about central line therefore PICC line was ordered. Cultures x2 are pending. 04/16: Patient has right arm PICC line. Did not require vasopressor support. BP has improved. Continue antibiotic. 04/17: Patient maintain blood pressure in the range of 120s. Patient is hemodynamically stable to be transferred to PCU. 04/18: Blood pressure is elevated systolic in 150s to 160s. Resume his blood pressure medications except nephrotoxic medications. Mycoplasma IgG positive. IgM negative. Legionella pneumophila antibody negative 04/19: Antibiotic changed to Levaquin. Zosyn discontinued. Today for the day of antibiotic gets 2 more days. 2. Acute hypoxic respiratory failure secondary to pneumococcal pneumonia: ABG was done. 7.35/35/64 on 12/550% FiO2 consistent with acute hypoxic respiratory failure. K3.3, bicarb 22, anion gap 11. Hypokalemia mild, replaced. 04/16: Respiratory status has improved. Oxygen through nasal cannula and intermittent BiPAP support as per insurance sales supervisor. 04/17: On oxygen intermittent with BiPAP. Mild tachypneic. 04/18: On oxygen. Oxygen requirement has improved Transient A. fib: Resolved. Currently normal sinus rhythm with PVCs. Patient on metoprolol 5 mg IV every 6 hourly. 04/18: Started on metoprolol 25 mg twice daily and discontinue IV metoprolol. 04/19: Heart rate is controlled. 3. Acute kidney injury on chronic kidney disease stage III with hypokalemia: Patient has slow increase in BUN and creatinine since June 2018. BUN/creatinine 23/1.4 in June 2018. BUN/Creatinine 30/1.58. Patient has mild ankle edema. At home patient is on metformin, amlodipine, metoprolol, lisinopril and HCTZ. Nephrotoxic medications are held. 04/16: BUN/creatinine 30/1.39 shows improvement. 1 dose of Lasix 10 mg IV given. 04/17: Kidney function stable, BUN/creatinine 34/1.37. Mild hypokalemia K3.2. Potassium being replaced. 04/18: BUN/creatinine stable, 40/1.33. K3.6. Sodium normal. Patient had 1 dose of Lasix 20 mg IV. 04/19: BUN/creatinine 52/1.4. Slightly elevated after Lasix. 4. Diabetes mellitus type 2: Accu-Chek with Humalog sliding scale. A1c tomorrow a.m. 04/16: Blood sugar between 182-235. We will titrate up the insulin. 04/17: Started on Lantus 10 units subcutaneous at breakfast. 04/18: Glucose is elevated. Lantus increased to 15 units subcutaneous at breakfast and 10 units at bedtime. Glucose between 172-318 04/19: Discontinue Solu-Medrol changed to prednisone. Accu-Cheks less than 250. 5. Chronic diastolic heart failure/pulmonary hypertension: Patient had echo done in May 2018. Reported as EF 55% with normal LV systolic function. Stage I diastolic dysfunction. RVSP 50 mmHg consistent with mild to moderate pulmonary hypertension. EKG normal sinus rhythm. 04/16: Patient states his left leg generally is more edematous than right leg. Ultrasound venous Doppler ordered. On exam there is no tenderness or swelling of calf or thigh muscles. 04/18: Venous Doppler is negative. 6. Other multiple comorbidities include hypertension, mixed chronic microcytic anemia/iron deficiency anemia: Multiple comorbidities complicates the present care and expect difficult and delay recovery DVT prophylaxis: On Lovenox 40 mg subcu daily. Discontinue if platelet count drops less than 50,000 or hemoglobin less than 8 g% Microbiology Past 72 Hours 04/15/19 12:00 Sputum, Expectorated/Coughed Gram Stain - Final 04/15/19 12:00 Sputum, Expectorated/Coughed Respiratory Culture - Final Mixed normal respiratory alesia. No Streptococcus pneumoniae, beta-hemolytic Streptococcus or Staphylococcus aureus isolated. 04/15/19 01:05 Urine, Random Urine Culture - Final Culture exhibits no growth. 04/15/19 00:40 Blood Culture (Wb) - Anticubital Left Blood Culture - Preliminary No growth in 48 hours. 04/15/19 00:15 Blood Culture (Wb) - Right Forearm Blood Culture - Preliminary No growth in 48 hours. Laboratory Results 04/18/19 16:34: POC Glucose 311 H 04/18/19 21:18: POC Glucose 242 H 04/19/19 06:35: WBC 14.4 H, RBC 3.33 L, Hgb 10.3 L, Hct 31.5 L, MCV 94.6 H, MCH 30.9, MCHC 32.7, RDW Std Deviation 48.9 H, RDW Coeff of James 14.1, Plt Count 157, MPV 10.2, Neut % (Auto) Not Reportable, Absolute Neuts (auto) 13.0 H, Absolute Lymphs (auto) 1.15, Total Counted 100, Neutrophils % (Manual) 85 H, Band Neutrophils % 5, Lymphocytes % (Manual) 8 L, Monocytes % (Manual) 2, Diff Path Review Reviewed, Reactive Lymphocytes 1+, Platelet Estimate ADEQUATE, RBC Morphology NORM C+C 04/19/19 06:35: Sodium 142, Potassium 4.1, Chloride 113 H, Carbon Dioxide 23.0, Anion Gap 6, BUN 52 H, Creatinine 1.44 H, Estim Creat Clear Calc 38.19, Est GFR (MDRD) Af Amer 60, Est GFR (MDRD) Non-Af 50 L, BUN/Creatinine Ratio 36.1 H, Glucose 233 H, Calcium 8.3 L 04/19/19 07:00: POC Glucose 207 H 04/19/19 11:07: POC Glucose 236 H Clinical Impression(s) from Imaging Studies Chest X-Ray 04/15/19 00:20 IMPRESSION: Lingular infiltrate with possible left lower lobe and right middle lobe infiltrates as described above. Code Visit Inpatient E&M: 55271 Subs Hosp L3
--- NOTE | 2019-04-19 14:36 | PN_ITS ---
Patient Problems: Active and Suspected Problems Septic shock (Acute) Acute respiratory failure with hypoxia (Acute) Sepsis (Acute) Community acquired pneumonia (Acute) Hypoxemia (Acute) Subjective: Patient did okay overnight. No hemodynamic instability was reported. Patient reportedly did have some confusion overnight. Patient still reporting a cough, but minimal production - Physical Exam Vitals/I&O's: Vital Signs Temp Pulse Resp BP Pulse Ox 37.0 C 69 19 H 151/77 H 94 04/19/19 14:06 04/19/19 14:06 04/19/19 14:06 04/19/19 14:06 04/19/19 14:06 Oxygen Flow Rate (L/min) 3 Oxygen Delivery Method Nasal Cannula Weight: 107.3 kg Body Mass Index (BMI) 33.9 Intake and Output for Last 24 Hours 04/17/19 04/18/19 04/19/19 23:59 23:59 23:59 Intake Total 1190 / 1190 1771.75 / 1771.75 725.25 / 725.25 Output Total 1000 / 1000 1450 / 1875 925 / 925 Balance 190 / 190 321.75 / -103.25 -199.75 / -199.75 General: Alert, Cooperative, No apparent distress, Well developed, Well nourished, - - No conversational dyspnea noted HEENT: Atraumatic, PERRLA, EOMI, Normocephalic Oral: Moist Mucosa, No Gingival or Mucosal Lesions/ Ulcerations Neck: Supple, No JVD, Trachea Midline Lungs: No rhonchi, No wheeze, No rales, Diminished, - - Symmetric expansion. No dullness to percussion. Cardiovascular: Normal S1, Normal S2, No murmurs, Irregular Rate, No rub noted, No Gallop Abdomen: Bowel Sounds Present, Soft, Non Tender, Non-Distended, Obese Extremities: No cyanosis, Capillary Refill Less than 3 Seconds, Edema Skin: No rashes, No breakdown Musculoskeletal: No Tenderness to Palpation of Joints or Extremities Lymphatic: No Cervical, Supraclavicular, or Inguinal Adenopathy Neurological: Cranial nerves II-XII grossly intact, Neuro grossly intact, Motor Exam 5/5 strength throughout Psych/Mental Status: Appropriate, Flat Affect Microbiology Past 72 Hours 04/15/19 12:00 Sputum, Expectorated/Coughed Gram Stain - Final 04/15/19 12:00 Sputum, Expectorated/Coughed Respiratory Culture - Final Mixed normal respiratory alesia. No Streptococcus pneumoniae, beta-hemolytic Streptococcus or Staphylococcus aureus isolated. 04/15/19 01:05 Urine, Random Urine Culture - Final Culture exhibits no growth. 04/15/19 00:40 Blood Culture (Wb) - Anticubital Left Blood Culture - Preliminary No growth in 48 hours. 04/15/19 00:15 Blood Culture (Wb) - Right Forearm Blood Culture - Preliminary No growth in 48 hours. Laboratory Results 04/18/19 16:34: POC Glucose 311 H 04/18/19 21:18: POC Glucose 242 H 04/19/19 06:35: WBC 14.4 H, RBC 3.33 L, Hgb 10.3 L, Hct 31.5 L, MCV 94.6 H, MCH 30.9, MCHC 32.7, RDW Std Deviation 48.9 H, RDW Coeff of James 14.1, Plt Count 157, MPV 10.2, Neut % (Auto) Not Reportable, Absolute Neuts (auto) 13.0 H, Absolute Lymphs (auto) 1.15, Total Counted 100, Neutrophils % (Manual) 85 H, Band Neutrophils % 5, Lymphocytes % (Manual) 8 L, Monocytes % (Manual) 2, Diff Path Review Reviewed, Reactive Lymphocytes 1+, Platelet Estimate ADEQUATE, RBC Morphology NORM C+C 04/19/19 06:35: Sodium 142, Potassium 4.1, Chloride 113 H, Carbon Dioxide 23.0, Anion Gap 6, BUN 52 H, Creatinine 1.44 H, Estim Creat Clear Calc 38.19, Est GFR (MDRD) Af Amer 60, Est GFR (MDRD) Non-Af 50 L, BUN/Creatinine Ratio 36.1 H, Glucose 233 H, Calcium 8.3 L 04/19/19 07:00: POC Glucose 207 H 04/19/19 11:07: POC Glucose 236 H Current Medications Acetaminophen (Tylenol) 650 mg PO Q6H PRN PRN PRN Reason: Pain Score 1-10/Temp > 100.7 F Last Admin: 04/18/19 04:13 Dose: 650 mg Documented by: Albuterol Sulfate (Ventolin Aerosols) 2.5 mg INHALATION Q2H PRN PRN PRN Reason: SOB/Wheezing Albuterol/Ipratropium (Duoneb) 3 ml INHALATION Q4HWA.RT REPLACED BY [facility] Last Admin: 04/19/19 11:28 Dose: 3 ml Documented by: Aspirin (Aspirin, Baby) 81 mg PO DAILY@0800 REPLACED BY [facility] Last Admin: 04/19/19 09:23 Dose: 81 mg Documented by: Dextrose (D50w Syringe) 0 gm IV X1 PRN; Protocol PRN Reason: Hypoglycemia Enoxaparin Sodium (Lovenox) 40 mg SC DAILY REPLACED BY [facility] Last Admin: 04/19/19 09:25 Dose: 40 mg Documented by: Ferrous Gluconate (Ferrous Gluconate) 324 mg PO DAILY@0800 REPLACED BY [facility] Last Admin: 04/19/19 09:23 Dose: 324 mg Documented by: Glucagon () 1 mg IM .X1 PRN PRN Reason: Hypoglycemia Guaifenesin (Mucinex) 1,200 mg PO BID REPLACED BY [facility] Last Admin: 04/19/19 09:25 Dose: 1,200 mg Documented by: Sodium Chloride () 250 mls @ 15 mls/hr IV .[id number] PRN PRN Reason: Saline Flush Last Infusion: 04/19/19 05:50 Dose: 0 mls/hr Documented by: Sodium Chloride () 250 mls @ 15 mls/hr IV .[id number] PRN PRN Reason: Saline Flush Insulin Glargine (Lantus (Bkc)) 10 units SC DINNER REPLACED BY [facility] Last Admin: 04/18/19 17:16 Dose: 10 units Documented by: Insulin Glargine (Lantus (Bkc)) 15 units SC BREAKFAST REPLACED BY [facility] Last Admin: 04/19/19 09:24 Dose: 15 units Documented by: Insulin Human Lispro (Humalog Kwikpen (Bkc)) 0 unit SC ACHS REPLACED BY [facility]; Protocol Last Admin: 04/19/19 11:08 Dose: 4 units Documented by: Labetalol HCl (Trandate) 10 mg IV Q4H PRN PRN PRN Reason: SBP > 160 Levofloxacin (Levaquin Tablet) 500 mg PO DAILY@0600 REPLACED BY [facility] Last Admin: 04/19/19 11:03 Dose: 500 mg Documented by: Melatonin (Melatonin) 3 mg PO QHS PRN PRN PRN Reason: INSOMNIA Last Admin: 04/15/19 21:17 Dose: 3 mg Documented by: Methylprednisolone (Solu-Medrol) 40 mg IV Q8 REPLACED BY [facility] Last Admin: 04/19/19 13:24 Dose: 40 mg Documented by: Metoprolol Tartrate (Lopressor (Beta Ayala)) 25 mg PO BID REPLACED BY [facility] Last Admin: 04/19/19 09:23 Dose: 25 mg Documented by: Nutritional Formula (Lactose Free) (Glucerna Shake) 120 ml PO 4X/DAY REPLACED BY [facility] Last Admin: 04/19/19 13:23 Dose: 120 ml Documented by: Ondansetron HCl (Zofran) 4 mg IV Q8H PRN PRN PRN Reason: NAUSEA/VOMITING Potassium Chloride (K-Dur) 40 meq PO DAILYCM REPLACED BY [facility] Last Admin: 04/19/19 09:32 Dose: 40 meq Documented by: Senna/Docusate Sodium (Senokot-S, Estefany-Colace) 2 tablet PO BID PRN PRN PRN Reason: Constipation Sodium Chloride () 10 - 40 ml IV UD PRN PRN Reason: SALINE FLUSH Last Admin: 04/19/19 13:24 Dose: 10 ml Documented by: Medical Necessity - Tobacco Use Smoking Status: Former smoker Tobacco Use: Cigars - Sporadic. Last smoked between 1 to 5 years ago. Assessment/Plan All Active Problems Septic shock (Acute) Acute respiratory failure with hypoxia (Acute) Sepsis (Acute) Community acquired pneumonia (Acute) Hypoxemia (Acute) Skin cancer (Resolved) RECOMMENDATIONS: 1. Consider diuretic therapy as tolerated 2. Complete 10 days total of antibiotics. 3. Increase activity as tolerated 4. Continue BiPAP therapy rescue as necessary 5. Wean oxygen as tolerated IMPRESSIONS: 1. Septic shock secondary to pneumococcal pneumonia Patient with left lower lobe infiltrate and pneumococcal antigen. Cl inical suspicion for pneumococcal pneumonia leading to current situation. Patient has significant hypoxia and likely has an element of diastolic congestive heart failure at this time. Patient responded well to fluid boluses initially, but may benefit from diuretic therapy at this time. Patient is come back with pneumococcal antigen positive and no other cultures have come back positive. Patient should be treated for 10 days 2. Acute hypoxic respiratory failure secondary to pneumococcal pneumonia Patient does not report any history of obstructive lung disease in the past. Patient is on DuoNeb therapy. Patient was placed on Solu-Medrol, but most of hypoxia may be secondary to infectious process with possible element of congestive heart failure. BiPAP rescue should be used as necessary. Patient has responded to Lasix in the past. Patient will be transition to prednisone tomorrow. Consider adding routine Lasix 3. Acute on chronic kidney disease stage III Stabilized. Clinical suspicion for prerenal etiology secondary to #1. No indication for renal replacement therapy at this time. Patient will be given supplemental potassium for hypokalemia as indicated. 4. Chronic diastolic congestive heart failure/type II pulmonary hypertension Previous echocardiogram shows elevated pulmonary artery pressures and diastolic dysfunction. Clinical suspicion patient may have an element of pulmonary edema secondary to volume resuscitation with problem #1. 5. Hypertension/diabetes mellitus type 2/advanced age/obesity Complicates care, management, recovery and prognosis. Patient able to be off BiPAP most of the day. Reasonable to just follow with sliding scale insulin. Blood pressure medications can likely be reinitiated in a stepwise fashion Code Visit Inpatient E&M: 68646 Subs Hosp L2
--- NOTE | 2019-04-19 15:46 | CASEMGMT ---
Pre-cert has been started for TCU. A bed will be available tomorrow. SW notified patient that TCU will have a bed for him when his insurance approves. Plan: TCU pending insurance approval. Tiarra PETER
[2019-04-19 16:16] LABS: Bedside Glucose 151 mg/dL (70-110)
[2019-04-19] MEDS: Furosemide 40 MG/4 ML Vial IV (16:56)
[2019-04-19 22:05] LABS: Bedside Glucose 223 mg/dL (70-110)
[2019-04-20] VITALS (11 sets, daily range): BP systolic 125–159; BP diastolic 53–99; PULSE 66–87; RESP 18; TEMP 36.5–37.2; O2SAT 86–96
[2019-04-20] MEDS: Ondansetron 4 MG/2 ML Vial IV (00:47)
[2019-04-20] MEDS: 0.9% Saline Lock 10 ML Syringe IV (00:48)
--- NOTE | 2019-04-20 05:24 | CPS ---
pt declined use of bipap last night
[2019-04-20] MEDS: levoFLOXacin 500 MG Tablet PO (06:29)
[2019-04-20] MEDS: Insulin Lispro 100 UNIT/ML INSULN.PEN SC ×2 (06:29→11:39)
[2019-04-20 06:36] LABS: Bedside Glucose 210 mg/dL (70-110)
[2019-04-20 06:42] LABS: Hematocrit 31.9 % (40-54); Hemoglobin 10.3 g/dL (13.0-16.5); Mean Corp Hgb Conc 32.3 g/dL (32-36); Mean Corpuscular Hgb 30.3 pg (27.0-32.0); Mean Corpuscular Volume 93.8 fL (80-94); Mean Platelet Vol. 10.2 fl (6.2-12.0); POSITIVE COUNT YES; POSITIVE MORPHOLOGY YES; Platelet Count 171 K/mm3 (150-450); RBC Distribution Width CV 14.1 % (11.6-14.6); RBC Distribution Width SD 48.3 fl (35.1-43.9)
[2019-04-20 06:47] LABS: Differential Indicated MANUAL DIFF
[2019-04-20 06:50] LABS: White Blood Count 14.3 K/mm3 (4.4-11.0)
[2019-04-20 07:05] LABS: Anion Gap 4 (5-15); BUN 50 mg/dL (7-18); BUN/Creat Ratio 36.2 RATIO (10-20); Calcium,Total 8.3 mg/dL (8.5-10.1); Chloride 107 mmol/L (98-107); Creatinine, Serum 1.38 mg/dL (0.70-1.30); EST Glomerular Filtration Rate 52 mL/min (>60); Est Glom Filt Rate - Afr Amer 63 mL/min (>60); Estimated Creatinine Clearance 39.85 ml/min; Glucose 216 mg/dL (74-106); Sodium Level 140 mmol/L (136-145)
[2019-04-20 07:19] LABS: Lymphocyte 6 % (19-41); Metamyelocyte 1 % (0-1); Monocyte 5 % (0-10); Neutrophil-Band 4 % (0-5); Neutrophil-Segmented 84 % (47-70); Nucleated Red Bld Cells,Manual 1 % (0-5); Platelet Estimate ADEQUATE (ADEQ); Red Cell Morphology NORM C+C NORMAL (NORM C&C); Total Cells Counted 100 (MANUAL DIFF)
[2019-04-20 07:21] LABS: Absolute Lymphocyte Count 0.86 X10^3/uL (0.83-4.51); Absolute Neutrophil Count 12.6 X10^3/uL (2.0-7.7)
[2019-04-20] MEDS: Ipratropium/Albuterol Sulfate 3 ML AMPUL.NEB INHALATION ×3 (07:33→15:19)
[2019-04-20] MEDS: predniSONE 20 MG Tablet 40 MG PO (09:01)
[2019-04-20] MEDS: Metoprolol Tartrate 25 MG Tablet PO (09:01)
[2019-04-20] MEDS: Enoxaparin 40 MG/0.4 ML Syringe SC (09:01)
[2019-04-20] MEDS: guaiFENesin 1,200 MG Tablet 1200 MG PO (09:01)
[2019-04-20] MEDS: Aspirin 81 MG TAB.CHEW PO (09:02)
[2019-04-20] MEDS: Ferrous Gluconate 324 MG Tablet PO (09:02)
[2019-04-20 09:38] LABS: Pathologist Review Reviewed
--- NOTE | 2019-04-20 10:56 | DCINST_ITS ---
- Discharge Diagnoses Current Active Problems: Current Active and Chronic Problems Septic shock (Acute) Acute respiratory failure with hypoxia (Acute) Sepsis (Acute) Community acquired pneumonia (Acute) Hypoxemia (Acute) Allergies/Adverse Reactions: Allergies No Known Allergies Allergy (Verified 04/14/19 23:56) Medications to take at Discharge Aspirin [Aspirin, Baby] 81 mg PO DAILY@0800 02/23/16 Amlodipine [Norvasc] 10 mg PO DAILY 06/16/18 Ipratropium Edison 0.06% [ATROVENT NASAL SPRAY] 2 spray NASAL BID 06/16/18 Albuterol Inhaler [Ventolin Hfa] 1 - 2 puff INHALATION Q4H PRN PRN #1 inhaler 06/19/18 Ferrous Gluconate 324 mg PO DAILY #60 tab 04/20/19 Furosemide [Lasix] 40 mg PO DAILY PRN #30 tab 04/20/19 Guaifenesin [Mucinex] 1,200 mg PO BID #14 tab 04/20/19 Insulin Glargine [Lantus SoloStar Pen] 20 units SUBCUT BREAKFAST #1 pen 04/20/19 Insulin Lispro [Humalog KwikPen] See Protocol SUBCUT ACHS insuln.pen 04/20/19 Ipratropium/Albuterol Sulfate [Duoneb] 3 ml INHALATION Q4HWA.RT #30 ampul.neb 04/20/19 Lisinopril [Zestril] 10 mg PO DAILY #0 04/20/19 Metformin HCl 500 mg PO BIDCM #0 04/20/19 Metoprolol(XL)Succ [Toprol Xl (Beta Ayala)] 50 mg PO DAILY #0 04/20/19 Potassium Chloride [K-Dur] 20 meq PO DAILY PRN PRN #30 tab 04/20/19 Prednisone 10 mg PO UD #30 tab 04/20/19 levoFLOXacin tablet [Levaquin tablet] 250 mg PO DAILY@0600 #4 tab 04/20/19 The following prescriptions were given: Ipratropium/Albuterol Sulfate [Duoneb] 3 ml INHALATION Q4HWA.RT #30 ampul.neb Transmission Status: Sent to [address] Potassium Chloride [K-Dur] 20 meq PO DAILY PRN PRN #30 tab PRN Reason: WITH LASIX Transmission Status: Pending to [address] Insulin Glargine [Lantus SoloStar Pen] 20 units SUBCUT BREAKFAST #1 pen Transmission Status: Sent to [address] Furosemide [Lasix] 40 mg PO DAILY PRN #30 tab Transmission Status: Pending to [facility] [place] [address] levoFLOXacin tablet [Levaquin tablet] 250 mg PO DAILY@0600 #4 tab Transmission Status: Sent to [address] Guaifenesin [Mucinex] 1,200 mg PO BID #14 tab Transmission Status: Sent to [address] Prednisone 10 mg PO UD #30 tab Prescription Printed Primary Care Physician: Yair Hart MD [Primary Care Provider] - Please follow up with your Primary Care Physician in: [place] 1-2 week Test Results: Test results from this visit will be discussed in further detail at your follow- up appointment, if applicable. Please Follow Up With: Eugene Monsalve MD When: in 1-2 week for CKD Please Follow Up With: Bandar Britt MD When: cabrera Araiza in 2 weeks Please Follow Up With: Tariq Sarabia MD When: in 3-4 weeks
--- NOTE | 2019-04-20 11:05 | PN_ITS ---
Subjective: The patient was seen and examined at the bedside this morning. Events from the last 24 hours have been reviewed. The patient is currently afebrile, hemodynamically stable and maintaining appropriate oxygen saturations on 3 L/min via nasal cannula. The patient denies the presence of resting shortness of breath. Objective: The patient's most recent lab work, culture data and imaging studies have all been personally reviewed. Urine streptococcal antigen was positive. - Physical Exam Vitals/I&O's: Vital Signs Temp Pulse Resp BP Pulse Ox 97.7 F L 72 18 125/99 H 94 04/20/19 08:57 04/20/19 09:01 04/20/19 08:57 04/20/19 08:57 04/20/19 08:57 Oxygen Flow Rate (L/min) 3 Oxygen Delivery Method Room Air Weight: 233 lb 7.512 oz Body Mass Index (BMI) 33.9 Intake and Output for Last 24 Hours 04/18/19 04/19/19 04/20/19 23:59 23:59 23:59 Intake Total 1771.75 / 1771.75 1715.25 / 1715.25 240 / 240 Output Total 1450 / 1875 2550 / 2550 550 / 550 Balance 321.75 / -103.25 -834.75 / -834.75 -310 / -310 General: Alert, Cooperative, No apparent distress, - - Sitting in bedside recliner HEENT: Atraumatic, PERRLA, Normocephalic Oral: No Gingival or Mucosal Lesions/ Ulcerations Neck: Supple, No Nodes, Trachea Midline Lungs: No rhonchi, No wheeze, No rales, Diminished Cardiovascular: Regular Rhythm, Normal S1, Normal S2, No murmurs Abdomen: Bowel Sounds Present, Soft, Non Tender, Obese Extremities: No clubbing, No cyanosis, Edema Skin: No breakdown Musculoskeletal: No Tenderness to Palpation of Joints or Extremities Lymphatic: No Cervical, Supraclavicular, or Inguinal Adenopathy Neurological: Neuro grossly intact Psych/Mental Status: Normal Affect, Appropriate Labs (Last 48 Hours) 04/15/19 04/18/19 04/18/19 03:55 12:41 16:34 WBC RBC Hgb Hct MCV MCH MCHC RDW Std Deviation RDW Coeff of James Plt Count MPV Neut % (Auto) Absolute Neuts (auto) Absolute Lymphs (auto) Total Counted Neutrophils % (Manual) Band Neutrophils % Lymphocytes % (Manual) Monocytes % (Manual) Metamyelocytes % Nucleated RBCs/100 WBC Diff Path Review Reactive Lymphocytes Platelet Estimate RBC Morphology Sodium Potassium Chloride Carbon Dioxide Anion Gap BUN Creatinine Estim Creat Clear Calc Est GFR (MDRD) Af Amer Est GFR (MDRD) Non-Af BUN/Creatinine Ratio Glucose Calcium Legionella pneumophila Ab < 0.91 Mycoplasma pneumon IgG 163 H Mycoplasma pneumon IgM < 770 POC Glucose 282 H 311 H 04/18/19 04/19/19 04/19/19 21:18 06:35 06:35 WBC 14.4 H RBC 3.33 L Hgb 10.3 L Hct 31.5 L MCV 94.6 H MCH 30.9 MCHC 32.7 RDW Std Deviation 48.9 H RDW Coeff of James 14.1 Plt Count 157 MPV 10.2 Neut % (Auto) Not Reportable Absolute Neuts (auto) 13.0 H Absolute Lymphs (auto) 1.15 Total Counted 100 Neutrophils % (Manual) 85 H Band Neutrophils % 5 Lymphocytes % (Manual) 8 L Monocytes % (Manual) 2 Metamyelocytes % Nucleated RBCs/100 WBC Diff Path Review Reviewed Reactive Lymphocytes 1+ Platelet Estimate ADEQUATE RBC Morphology NORM C+C Sodium 142 Potassium 4.1 Chloride 113 H Carbon Dioxide 23.0 Anion Gap 6 BUN 52 H Creatinine 1.44 H Estim Creat Clear Calc 38.19 Est GFR (MDRD) Af Amer 60 Est GFR (MDRD) Non-Af 50 L BUN/Creatinine Ratio 36.1 H Glucose 233 H Calcium 8.3 L Legionella pneumophila Ab Mycoplasma pneumon IgG Mycoplasma pneumon IgM POC Glucose 242 H 04/19/19 04/19/19 04/19/19 07:00 11:07 16:07 WBC RBC Hgb Hct MCV MCH MCHC RDW Std Deviation RDW Coeff of James Plt Count MPV Neut % (Auto) Absolute Neuts (auto) Absolute Lymphs (auto) Total Counted Neutrophils % (Manual) Band Neutrophils % Lymphocytes % (Manual) Monocytes % (Manual) Metamyelocytes % Nucleated RBCs/100 WBC Diff Path Review Reactive Lymphocytes Platelet Estimate RBC Morphology Sodium Potassium Chloride Carbon Dioxide Anion Gap BUN Creatinine Estim Creat Clear Calc Est GFR (MDRD) Af Amer Est GFR (MDRD) Non-Af BUN/Creatinine Ratio Glucose Calcium Legionella pneumophila Ab Mycoplasma pneumon IgG Mycoplasma pneumon IgM POC Glucose 207 H 236 H 151 H 04/19/19 04/20/19 04/20/19 21:55 06:00 06:00 WBC 14.3 H RBC 3.40 L Hgb 10.3 L Hct 31.9 L MCV 93.8 MCH 30.3 MCHC 32.3 RDW Std Deviation 48.3 H RDW Coeff of James 14.1 Plt Count 171 MPV 10.2 Neut % (Auto) Not Reportable Absolute Neuts (auto) 12.6 H Absolute Lymphs (auto) 0.86 Total Counted 100 Neutrophils % (Manual) 84 H Band Neutrophils % 4 Lymphocytes % (Manual) 6 L Monocytes % (Manual) 5 Metamyelocytes % 1 Nucleated RBCs/100 WBC 1 Diff Path Review Reviewed Reactive Lymphocytes Platelet Estimate ADEQUATE RBC Morphology NORM C+C Sodium 140 Potassium 4.0 Chloride 107 Carbon Dioxide 29.0 Anion Gap 4 L BUN 50 H Creatinine 1.38 H Estim Creat Clear Calc 39.85 Est GFR (MDRD) Af Amer 63 Est GFR (MDRD) Non-Af 52 L BUN/Creatinine Ratio 36.2 H Glucose 216 H Calcium 8.3 L Legionella pneumophila Ab Mycoplasma pneumon IgG Mycoplasma pneumon IgM POC Glucose 223 H 04/20/19 06:27 WBC RBC Hgb Hct MCV MCH MCHC RDW Std Deviation RDW Coeff of James Plt Count MPV Neut % (Auto) Absolute Neuts (auto) Absolute Lymphs (auto) Total Counted Neutrophils % (Manual) Band Neutrophils % Lymphocytes % (Manual) Monocytes % (Manual) Metamyelocytes % Nucleated RBCs/100 WBC Diff Path Review Reactive Lymphocytes Platelet Estimate RBC Morphology Sodium Potassium Chloride Carbon Dioxide Anion Gap BUN Creatinine Estim Creat Clear Calc Est GFR (MDRD) Af Amer Est GFR (MDRD) Non-Af BUN/Creatinine Ratio Glucose Calcium Legionella pneumophila Ab Mycoplasma pneumon IgG Mycoplasma pneumon IgM POC Glucose 210 H Microbiology 04/15/19 00:40 Blood Culture (Wb) - Anticubital Left Blood Culture - Final No growth in 5 days. 04/15/19 00:15 Blood Culture (Wb) - Right Forearm Blood Culture - Final No growth in 5 days. Clinical Impression(s) from Imaging Studies Chest X-Ray 04/15/19 00:20 IMPRESSION: Lingular infiltrate with possible left lower lobe and right middle lobe infiltrates as described above. Electronically Signed: Cassidy Swain MD at 0:54 EST , Service support , Chest X-Ray 04/18/19 04:55 IMPRESSION: 1. Persistent left basilar and right basilar airspace consolidations likely representing pneumonia. 2. Cardiomegaly and mild pulmonary congestion. Electronically Signed: Alanna Baig MD at 6:02 EST , Service support , Current Medications Acetaminophen (Tylenol) 650 mg PO Q6H PRN PRN PRN Reason: Pain Score 1-10/Temp > 100.7 F Last Admin: 04/18/19 04:13 Dose: 650 mg Documented by: Albuterol Sulfate (Ventolin Aerosols) 2.5 mg INHALATION Q2H PRN PRN PRN Reason: SOB/Wheezing Albuterol/Ipratropium (Duoneb) 3 ml INHALATION Q4HWA.RT [facility] Last Admin: 04/20/19 07:33 Dose: 3 ml Documented by: Aspirin (Aspirin, Baby) 81 mg PO DAILY@0800 [facility] Last Admin: 04/20/19 09:02 Dose: 81 mg Documented by: Dextrose (D50w Syringe) 0 gm IV X1 PRN; Protocol PRN Reason: Hypoglycemia Enoxaparin Sodium (Lovenox) 40 mg SC DAILY [facility] Last Admin: 04/20/19 09:01 Dose: 40 mg Documented by: Ferrous Gluconate (Ferrous Gluconate) 324 mg PO DAILY@0800 [facility] Last Admin: 04/20/19 09:02 Dose: 324 mg Documented by: Glucagon () 1 mg IM .X1 PRN PRN Reason: Hypoglycemia Guaifenesin (Mucinex) 1,200 mg PO BID [facility] Last Admin: 04/20/19 09:01 Dose: 1,200 mg Documented by: Sodium Chloride () 250 mls @ 15 mls/hr IV .[id number] PRN PRN Reason: Saline Flush Last Infusion: 04/19/19 05:50 Dose: 0 mls/hr Documented by: Sodium Chloride () 250 mls @ 15 mls/hr IV .[id number] PRN PRN Reason: Saline Flush Insulin Glargine (Lantus (Bkc)) 10 units SC DINNER [facility] Last Admin: 04/19/19 18:31 Dose: 10 units Documented by: Insulin Glargine (Lantus (Bk)) 15 units SC BREAKFAST [facility] Last Admin: 04/20/19 09:02 Dose: 15 units Documented by: Insulin Human Lispro (Humalog Kwikpen ([facility])) 0 unit SC ACHS [facility]; Protocol Last Admin: 04/20/19 06:29 Dose: 4 units Documented by: Labetalol HCl (Trandate) 10 mg IV Q4H PRN PRN PRN Reason: SBP > 160 Levofloxacin (Levaquin Tablet) 250 mg PO DAILY@0600 [facility] Melatonin (Melatonin) 3 mg PO QHS PRN PRN PRN Reason: INSOMNIA Last Admin: 04/15/19 21:17 Dose: 3 mg Documented by: Metoprolol Tartrate (Lopressor (Beta Ayala)) 25 mg PO BID [facility] Last Admin: 04/20/19 09:01 Dose: 25 mg Documented by: Nutritional Formula (Lactose Free) (Glucerna Shake) 120 ml PO 4X/DAY [facility] Last Admin: 04/20/19 09:02 Dose: Not Given Documented by: Ondansetron HCl (Zofran) 4 mg IV Q8H PRN PRN PRN Reason: NAUSEA/VOMITING Last Admin: 04/20/19 00:47 Dose: 4 mg Documented by: Potassium Chloride (K-Dur) 40 meq PO DAILYCM [facility] Last Admin: 04/20/19 09:01 Dose: 40 meq Documented by: Prednisone () 40 mg PO DAILY@0800 [facility] Last Admin: 04/20/19 09:01 Dose: 40 mg Documented by: Senna/Docusate Sodium (Senokot-S, Estefany-Colace) 2 tablet PO BID PRN PRN PRN Reason: Constipation Sodium Chloride () 10 - 40 ml IV UD PRN PRN Reason: SALINE FLUSH Last Admin: 04/20/19 00:48 Dose: 10 ml Documented by: Medical Necessity - Tobacco Use Smoking Status: Former smoker Tobacco Use: Cigars - Sporadic. Last smoked between 1 to 5 years ago. Assessment/Plan All Active Problems Septic shock (Acute) Acute respiratory failure with hypoxia (Acute) Sepsis (Acute) Community acquired pneumonia (Acute) Hypoxemia (Acute) Skin cancer (Resolved) RECOMMENDATIONS: 1. Continue antimicrobials with plans to complete a 10-day treatment course. 2. Wean supplemental oxygen to maintain saturations at or above 90%. 3. Encourage incentive spirometer use and mobilize patient as tolerated. 4. Gentle diuresis as tolerated. 5. Perform walking oximetry study prior to consideration for discharge home. IMPRESSIONS: 1. Septic shock secondary to pneumococcal pneumonia Patient with left lower lobe infiltrate and positive pneumococcal antigen. The patient has responded to aggressive supportive measures including intravascular volume expansion and appropriate antimicrobial therapy. He is currently hemodynamically stable. Given that the patient is still 6+ liters positive for the hospital admission, recommend continued attempts at diuresis. Wean supplemental oxygen as tolerated. Continue antimicrobials for a total of 10 days duration. 2. Acute hypoxic respiratory failure secondary to pneumococcal pneumonia Continue current supportive measures including scheduled bronchodilators, prednisone and IV Lasix. Wean supplemental oxygen as tolerated. Encourage incentive spirometer use and mobilize patient as tolerated. 3. Acute on chronic kidney disease stage III Stabilized. Clinical suspicion for prerenal etiology secondary to #1. No indication for renal replacement therapy at this time. Patient will be given supplemental potassium for hypokalemia as indicated. 4. Chronic diastolic congestive heart failure/type II pulmonary hypertension Previous echocardiogram shows elevated pulmonary artery pressures and diastolic dysfunction. Clinical suspicion patient may have an element of pulmonary edema secondary to volume resuscitation related to#1. Gentle IV diuresis to be continued. 5. Hypertension/diabetes mellitus type 2/advanced age/obesity Complicates care, management, recovery and prognosis. This note was generated with [employer] dictation software. It may contain incorrect words, spelling, and punctuation that were not noted in checking the note before signing. Code Visit Inpatient E&M: 20464 Subs Hosp L2
[2019-04-20 11:46] LABS: Bedside Glucose 151 mg/dL (70-110)
--- NOTE | 2019-04-20 12:09 | CASEMGMT ---
Addendum entered by Keiko Huggins 04/20/19 14:39: Call to Brandie and Ctaerina states referral received and she is aware that pt up for discharge. Caterina is also aware of order for nebulizer,. Caterina voices no further questions at this time. Pt awaiting delivery of tank. Meghan PUGH CM Addendum entered by Keiko Huggins 04/20/19 13:53: Pt does qualify for home oxygen at 86% on room air at rest. Referral faxed to [facility] for home oxygen 3liters and nebulizer at this time. Call to [facility] to notify of discharge today and referral, voices understanding. Meghan PUGH CM Original Note: Pt provided with list of in-network HHC and DME agencies at this time but pt states would like to discuss with his and asked this RN CM to call her at this time while at bedside. Call to pt's and message left for her to call this RN CM back when able. This RN CM then received call back from pt's and she states that she would like [facility] at this time and [facility] for home oxygen, if needed. states that she is not able to come pick pt up until later this afternoon and Melinda RN aware at this time, voices understanding. Message left with Priti at [facility] in regards to referral for RN, PT/OT at this time and awaiting call back. Order placed for RN, PT/OT at this time. CM to follow for home oxygen testing. Meghan PUGH CM
--- NOTE | 2019-04-20 12:41 | PCM.DC.SUM ---
Discharge Date and Diagnosis - Problem List Patient Problems: Active and Suspected Problems Septic shock (Acute) Acute respiratory failure with hypoxia (Acute) Sepsis (Acute) Community acquired pneumonia (Acute) Hypoxemia (Acute) Date of Admission: 04/15/19 Date of Discharge: 04/20/19 - Primary Discharge Diagnosis Active and Suspected Problems Septic shock (Acute) Acute respiratory failure with hypoxia (Acute) Sepsis (Acute) Community acquired pneumonia (Acute) Hypoxemia (Acute) - Secondary Discharge Diagnosis Chronic Problems Type 2 diabetes mellitus (Chronic) HTN (hypertension) (Chronic) Hospital Course and Treatment Operations: None Summary of Care Provided: The patient is a 83 year old M [] This 83-year-old gentleman with multiple comorbidities including type 2 diabetes mellitus, AND hypertension was admitted through ER for 4-day history of fever, shortness of breath, productive cough mucus but he got more symptomatic in the last 2 days. Patient further said he has on and off cough for few months and had pneumonia about 5 to 6 months ago. Chest x-ray shows lingular infiltrate right middle lobe infiltrate. Patient was managed on septic shock protocol because significant bandemia, elevated creatinine 1.7 and lactic acidosis 4.1. Patient was admitted in ICU. In ICU, patient reports improvement in shortness of breath and pleuritic chest pain. Blood pressure on lower side 87/52 although it was 132/65 in ER. Pulse ox 91% on 50% BiPAP 1. Septic shock secondary to pneumococcal pneumonia: Urinary antigen is positive of strep pneumonia. Initially patient was started on vancomycin and Zosyn. Vancomycin discontinued. Discussed with loan documents closer. Blood pressure borderline low. Patient is hesitant about central line therefore PICC line was ordered. Cultures x2 are pending. 04/16: Patient has right arm PICC line. Did not require vasopressor support. BP has improved. Continue antibiotic. 04/17: Patient maintain blood pressure in the range of 120s. Patient is hemodynamically stable to be transferred to PCU. 04/18: Blood pressure is elevated systolic in 150s to 160s. Resume his blood pressure medications except nephrotoxic medications. Mycoplasma IgG positive. IgM negative. Legionella pneumophila antibody negative 04/19: Antibiotic changed to Levaquin. Zosyn discontinued. Total required antibiotic duration 10 days. 04/20: Patient given a prescription for Levaquin for 4 more days to complete a total of 10 days. Tapering dose of prednisone prescription given. 2. Acute hypoxic respiratory failure secondary to pneumococcal pneumonia: ABG was done. 7.35/35/64 on 12/550% FiO2 consistent with acute hypoxic respiratory failure. K3.3, bicarb 22, anion gap 11. Hypokalemia mild, replaced. 04/16: Respiratory status has improved. Oxygen through nasal cannula and intermittent BiPAP support as per loan documents closer. 04/17: On oxygen intermittent with BiPAP. Mild tachypneic. 04/18: On oxygen. Oxygen requirement has improved 04/20: Home oxygen evaluation was done. Patient 86% on room air at rest, requires 3 L of oxygen, pulse ox 96%. Patient is ambulatory in home and in the community and requires home oxygen with portability. Transient A. fib: Resolved. Currently normal sinus rhythm with PVCs. Patient on metoprolol 5 mg IV every 6 hourly. 04/18: Started on metoprolol 25 mg twice daily and discontinue IV metoprolol. 04/19: Heart rate is controlled. 04/20: Patient is on metoprolol, discharged on Toprol-XL 50 mg daily. 3. Acute kidney injury on chronic kidney disease stage III with hypokalemia: Patient has slow increase in BUN and creatinine since June 2018. BUN/creatinine 23/1.4 in June 2018. BUN/Creatinine 30/1.58. Patient has mild ankle edema. At home patient is on metformin, amlodipine, metoprolol, lisinopril and HCTZ. Nephrotoxic medications are held. 04/16: BUN/creatinine 30/1.39 shows improvement. 1 dose of Lasix 10 mg IV given. 04/17: Kidney function stable, BUN/creatinine 34/1.37. Mild hypokalemia K3.2. Potassium being replaced. 04/18: BUN/creatinine stable, 40/1.33. K3.6. Sodium normal. Patient had 1 dose of Lasix 20 mg IV. 04/19: BUN/creatinine 52/1.4. Slightly elevated after Lasix. 04/20: Patient was given a prescription for Lasix 40 mg daily as needed for leg edema/dyspnea at rest along with potassium supplement. Follow-up with site damage prevention technician to further adjust the dose of Lasix. Follow-up with site damage prevention technician in 1 week. Hold lisinopril for 1 week and then resume at lower dose 10 mg daily. 4. Diabetes mellitus type 2: Accu-Chek with Humalog sliding scale. A1c tomorrow a.m. 04/16: Blood sugar between 182-235. We will titrate up the insulin. 04/17: Started on Lantus 10 units subcutaneous at breakfast. 04/18: Glucose is elevated. Lantus increased to 15 units subcutaneous at breakfast and 10 units at bedtime. Glucose between 172-318 04/19: Discontinue Solu-Medrol changed to prednisone. Accu-Cheks less than 250. 5. Chronic diastolic heart failure/pulmonary hypertension: Patient had echo done in May 2018. Reported as EF 55% with normal LV systolic function. Stage I diastolic dysfunction. RVSP 50 mmHg consistent with mild to moderate pulmonary hypertension. EKG normal sinus rhythm. 04/16: Patient states his left leg generally is more edematous than right leg. Ultrasound venous Doppler ordered. On exam there is no tenderness or swelling of calf or thigh muscles. 04/18: Venous Doppler is negative. 6. Other multiple comorbidities include hypertension, mixed chronic microcytic anemia/iron deficiency anemia: Multiple comorbidities complicates the present care and expect difficult and delay recovery DVT prophylaxis: On Lovenox 40 mg subcu daily. Discontinue if platelet count drops less than 50,000 or hemoglobin less than 8 g% Discharge medication reconciliation done. Discharge follow-up instructions completed. Discharge process discussed with the patient and all questions were answered to patient's satisfaction. Total time spent, exact 35 minutes on discharge meds reconciliation, examination, review of imaging and blood test and discussion with the patient on follow-up instructions. Laboratory Results 04/19/19 21:55: POC Glucose 223 H 04/20/19 06:00: WBC 14.3 H, RBC 3.40 L, Hgb 10.3 L, Hct 31.9 L, MCV 93.8, MCH 30.3, MCHC 32.3, RDW Std Deviation 48.3 H, RDW Coeff of James 14.1, Plt Count 171, MPV 10.2, Neut % (Auto) Not Reportable, Absolute Neuts (auto) 12.6 H, Absolute Lymphs (auto) 0.86, Total Counted 100, Neutrophils % (Manual) 84 H, Band Neutrophils % 4, Lymphocytes % (Manual) 6 L, Monocytes % (Manual) 5, Metamyelocytes % 1, Nucleated RBCs/100 WBC 1, Diff Path Review Reviewed, Platelet Estimate ADEQUATE, RBC Morphology NORM C+C 04/20/19 06:00: Sodium 140, Potassium 4.0, Chloride 107, Carbon Dioxide 29.0, Anion Gap 4 L, BUN 50 H, Creatinine 1.38 H, Estim Creat Clear Calc 39.85, Est GFR (MDRD) Af Amer 63, Est GFR (MDRD) Non-Af 52 L, BUN/Creatinine Ratio 36.2 H, Glucose 216 H, Calcium 8.3 L 04/20/19 06:27: POC Glucose 210 H 04/20/19 11:37: POC Glucose 151 H Microbiology Past 72 Hours 04/15/19 12:00 Sputum, Expectorated/Coughed Gram Stain - Final 04/15/19 12:00 Sputum, Expectorated/Coughed Respiratory Culture - Final Mixed normal respiratory alesia. No Streptococcus pneumoniae, beta-hemolytic Streptococcus or Staphylococcus aureus isolated. 04/15/19 01:05 Urine, Random Urine Culture - Final Culture exhibits no growth. 04/15/19 00:40 Blood Culture (Wb) - Anticubital Left Blood Culture - Preliminary No growth in 48 hours. 04/15/19 00:15 Blood Culture (Wb) - Right Forearm Blood Culture - Preliminary No growth in 48 hours. Patient Problems: Active and Suspected Problems Septic shock (Acute) Acute respiratory failure with hypoxia (Acute) Sepsis (Acute) Community acquired pneumonia (Acute) Hypoxemia (Acute) Subjective: Hemodynamically stable. Blood pressure 125/99. Afebrile. Objective: Patient walked about 100 feet without assistance. He was denied for SNF. Requires oxygen - Physical Exam Vitals/I&O's: Vital Signs Temp Pulse Resp BP Pulse Ox 97.7 F L 67 18 125/99 H 94 04/20/19 08:57 04/20/19 11:08 04/20/19 11:08 04/20/19 08:57 04/20/19 08:57 Oxygen Flow Rate (L/min) 3 Oxygen Delivery Method Room Air Weight: 233 lb 7.512 oz Body Mass Index (BMI) 33.9 Intake and Output for Last 24 Hours 04/18/19 04/19/19 04/20/19 23:59 23:59 23:59 Intake Total 1771.75 / 1771.75 1715.25 / 1715.25 690 / 690 Output Total 1450 / 1875 2550 / 2550 550 / 550 Balance 321.75 / -103.25 -834.75 / -834.75 140 / 140 General: Alert, Oriented x3, Cooperative HEENT: Atraumatic, PERRLA, EOMI, Normocephalic Neck: Supple, No JVD, Negative Carotid Bruits Lungs: No rhonchi, No wheeze, No rales, Diminished, Rhonchi Cardiovascular: Regular rate, Regular Rhythm, Normal S1, Normal S2, No murmurs Abdomen: Bowel Sounds Present, Soft, Non Tender, Non-Distended Extremities: Capillary Refill Less than 3 Seconds, Edema Skin: No rashes, No breakdown Musculoskeletal: No Tenderness to Palpation of Joints or Extremities, Arthritic Changes Neurological: Cranial nerves II-XII grossly intact, Deep Tendon Reflexes 2+/4 and Symmetrical, Neuro grossly intact Psych/Mental Status: Normal Affect, Appropriate Microbiology Past 72 Hours 04/15/19 00:40 Blood Culture (Wb) - Anticubital Left Blood Culture - Final No growth in 5 days. 04/15/19 00:15 Blood Culture (Wb) - Right Forearm Blood Culture - Final No growth in 5 days. 04/15/19 12:00 Sputum, Expectorated/Coughed Gram Stain - Final 04/15/19 12:00 Sputum, Expectorated/Coughed Respiratory Culture - Final Mixed normal respiratory alesia. No Streptococcus pneumoniae, beta-hemolytic Streptococcus or Staphylococcus aureus isolated. 04/15/19 01:05 Urine, Random Urine Culture - Final Culture exhibits no growth. Laboratory Results 04/19/19 16:07: POC Glucose 151 H 04/19/19 21:55: POC Glucose 223 H 04/20/19 06:00: WBC 14.3 H, RBC 3.40 L, Hgb 10.3 L, Hct 31.9 L, MCV 93.8, MCH 30.3, MCHC 32.3, RDW Std Deviation 48.3 H, RDW Coeff of James 14.1, Plt Count 171, MPV 10.2, Neut % (Auto) Not Reportable, Absolute Neuts (auto) 12.6 H, Absolute Lymphs (auto) 0.86, Total Counted 100, Neutrophils % (Manual) 84 H, Band Neutrophils % 4, Lymphocytes % (Manual) 6 L, Monocytes % (Manual) 5, Metamyelocytes % 1, Nucleated RBCs/100 WBC 1, Diff Path Review Reviewed, Platelet Estimate ADEQUATE, RBC Morphology NORM C+C 04/20/19 06:00: Sodium 140, Potassium 4.0, Chloride 107, Carbon Dioxide 29.0, Anion Gap 4 L, BUN 50 H, Creatinine 1.38 H, Estim Creat Clear Calc 39.85, Est GFR (MDRD) Af Amer 63, Est GFR (MDRD) Non-Af 52 L, BUN/Creatinine Ratio 36.2 H, Glucose 216 H, Calcium 8.3 L 04/20/19 06:27: POC Glucose 210 H 04/20/19 11:37: POC Glucose 151 H Current Medications Acetaminophen (Tylenol) 650 mg PO Q6H PRN PRN PRN Reason: Pain Score 1-10/Temp > 100.7 F Last Admin: 04/18/19 04:13 Dose: 650 mg Documented by: Albuterol Sulfate (Ventolin Aerosols) 2.5 mg INHALATION Q2H PRN PRN PRN Reason: SOB/Wheezing Albuterol/Ipratropium (Duoneb) 3 ml INHALATION Q4HWA.RT [facility] Last Admin: 04/20/19 11:09 Dose: 3 ml Documented by: Aspirin (Aspirin, Baby) 81 mg PO DAILY@0800 [facility] Last Admin: 04/20/19 09:02 Dose: 81 mg Documented by: Dextrose (D50w Syringe) 0 gm IV X1 PRN; Protocol PRN Reason: Hypoglycemia Enoxaparin Sodium (Lovenox) 40 mg SC DAILY [facility] Last Admin: 04/20/19 09:01 Dose: 40 mg Documented by: Ferrous Gluconate (Ferrous Gluconate) 324 mg PO DAILY@0800 [facility] Last Admin: 04/20/19 09:02 Dose: 324 mg Documented by: Glucagon () 1 mg IM .X1 PRN PRN Reason: Hypoglycemia Guaifenesin (Mucinex) 1,200 mg PO BID [facility] Last Admin: 04/20/19 09:01 Dose: 1,200 mg Documented by: Sodium Chloride () 250 mls @ 15 mls/hr IV .[id number] PRN PRN Reason: Saline Flush Last Infusion: 04/19/19 05:50 Dose: 0 mls/hr Documented by: Sodium Chloride () 250 mls @ 15 mls/hr IV .[id number] PRN PRN Reason: Saline Flush Insulin Glargine (Lantus (Bk)) 10 units SC DINNER [facility] Last Admin: 04/19/19 18:31 Dose: 10 units Documented by: Insulin Glargine (Lantus (Bk)) 15 units SC BREAKFAST [facility] Last Admin: 04/20/19 09:02 Dose: 15 units Documented by: Insulin Human Lispro (Humalog Kwikpen ([facility])) 0 unit SC ACHS [facility]; Protocol Last Admin: 04/20/19 11:39 Dose: 2 units Documented by: Labetalol HCl (Trandate) 10 mg IV Q4H PRN PRN PRN Reason: SBP > 160 Levofloxacin (Levaquin Tablet) 250 mg PO DAILY@0600 [facility] Melatonin (Melatonin) 3 mg PO QHS PRN PRN PRN Reason: INSOMNIA Last Admin: 04/15/19 21:17 Dose: 3 mg Documented by: Metoprolol Tartrate (Lopressor (Beta Ayala)) 25 mg PO BID [facility] Last Admin: 04/20/19 09:01 Dose: 25 mg Documented by: Nutritional Formula (Lactose Free) (Glucerna Shake) 120 ml PO 4X/DAY [facility] Last Admin: 04/20/19 09:02 Dose: Not Given Documented by: Ondansetron HCl (Zofran) 4 mg IV Q8H PRN PRN PRN Reason: NAUSEA/VOMITING Last Admin: 04/20/19 00:47 Dose: 4 mg Documented by: Potassium Chloride (K-Dur) 40 meq PO DAILYCM [facility] Last Admin: 04/20/19 09:01 Dose: 40 meq Documented by: Prednisone () 40 mg PO DAILY@0800 [facility] Last Admin: 04/20/19 09:01 Dose: 40 mg Documented by: Senna/Docusate Sodium (Senokot-S, Estefany-Colace) 2 tablet PO BID PRN PRN PRN Reason: Constipation Sodium Chloride () 10 - 40 ml IV UD PRN PRN Reason: SALINE FLUSH Last Admin: 04/20/19 00:48 Dose: 10 ml Documented by: Home Medications: Medications to take at Discharge Aspirin [Aspirin, Baby] 81 mg PO DAILY@0800 02/23/16 Amlodipine [Norvasc] 10 mg PO DAILY 06/16/18 Ipratropium [place] 0.06% [ATROVENT NASAL SPRAY] 2 spray NASAL BID 06/16/18 Albuterol Inhaler [Ventolin Hfa] 1 - 2 puff INHALATION Q4H PRN PRN #1 inhaler 06/19/18 Ferrous Gluconate 324 mg PO DAILY #60 tab 04/20/19 Furosemide [Lasix] 40 mg PO DAILY PRN #30 tab 04/20/19 Guaifenesin [Mucinex] 1,200 mg PO BID #14 tab 04/20/19 Insulin Aspart [Novolog Flexpen] See Protocol SUBCUT ACHS #1 ml 04/20/19 Insulin Glargine [Lantus SoloStar Pen] 20 units SUBCUT BREAKFAST #1 pen 04/20/19 Ipratropium/Albuterol Sulfate [Duoneb] 3 ml INHALATION Q4HWA.RT #30 ampul.neb 04/20/19 Lisinopril [Zestril] 10 mg PO DAILY #0 04/20/19 Metformin HCl 500 mg PO BIDCM #0 04/20/19 Metoprolol(XL)Succ [Toprol Xl (Beta Ayala)] 50 mg PO DAILY #0 04/20/19 Potassium Chloride [K-Dur] 20 meq PO DAILY PRN PRN #30 tab 04/20/19 Prednisone 10 mg PO UD #30 tab 04/20/19 levoFLOXacin tablet [Levaquin tablet] 250 mg PO DAILY@0600 #4 tab 04/20/19 Following Prescrptions Were Given to Patient: Ipratropium/Albuterol Sulfate [Duoneb] 3 ml INHALATION Q4HWA.RT #30 ampul.neb Transmission Status: [facility] Potassium Chloride [K-Dur] 20 meq PO DAILY PRN PRN #30 tab PRN Reason: WITH LASIX Transmission Status: Received by ALDAIR RANGEL [facility] Insulin Glargine [Lantus SoloStar Pen] 20 units SUBCUT BREAKFAST #1 pen Transmission Status: Received by ALDAIR RANGEL [facility] Furosemide [Lasix] 40 mg PO DAILY PRN #30 tab Transmission Status: Received by ALDAIR RANGEL [facility] levoFLOXacin tablet [Levaquin tablet] 250 mg PO DAILY@0600 #4 tab Transmission Status: Received by ALDAIR GARZA1954 SYL PATEL Guaifenesin [Mucinex] 1,200 mg PO BID #14 tab Transmission Status: Received by ALDAIR MERIDA SYL PATEL Prednisone 10 mg PO UD #30 tab Prescription Printed Primary Care Physician: Yair Hart MD [Primary Care Provider] - Please follow up with your Primary Care Physician in: IN 1-2 week Please Follow Up With: Eugene Monsalve MD When: in 1-2 week for CKD Please Follow Up With: Bandar Britt MD When: cabrera Araiza in 2 weeks Please Follow Up With: Tariq Sarabia MD When: in 3-4 weeks Medical Necessity - Tobacco Use Smoking Status: Former smoker Tobacco Use: Cigars - Sporadic. Last smoked between 1 to 5 years ago. Meaningful Use Info Meaningful Use Diagnoses (Choose all that apply): None applicable Code Visit Inpatient E&M: 37471 Disch Hosp
--- NOTE | 2019-04-20 15:25 | CASEMGMT ---
Progress note faxed to [facility] [place] as D/C summary not completed yet at this time. Meghan PUGH CM
--- NOTE | 2019-04-21 09:09 | CASEMGMT ---
D/C summary faxed to [facility] at this time. Meghan PUGH CM
--- NOTE | 2019-04-21 14:15 | CASEMGMT ---
RN CM Discharge F/U Phone Call LACE: 12 Strata: 4 Discharge date: 04/20/19 Call date: 04/21/19 Call time: 1416 Attempted to reach pt without success at this time, message left for pt/ to call this RN CM back if/when able. SStaten RN CM Admission dx: Septic shock
== END 2019-04-20 17:46 | disposition home or self-care (01) | DRG 871 ==
LOC: ED 04-15 02:08 → PCU 04-15 02:28 → ICU 04-15 02:52 → PCU 04-17 10:01
PROVIDERS: Internal Medicine Critical Care Medicine; Admitting Provider Hospitalist; Emergency Provider Emergency Medicine; Family Provider Internal Medicine; PCP Internal Medicine; Referring Provider Hospitalist; Visit Provider Internal Medicine
DX: A40.3 Sepsis due to Streptococcus pneumoniae (principal); J13 Pneumonia due to Streptococcus pneumoniae; R65.21 Severe sepsis with septic shock; J96.01 Acute respiratory failure with hypoxia; N17.9 Acute kidney failure, unspecified; I50.32 Chronic diastolic (congestive) heart failure; I13.0 Hypertensive heart and chronic kidney disease with heart failure and stage 1 through stage 4 chronic kidney disease, or unspecified chronic kidney disease; N18.3 Chronic kidney disease, stage 3 (moderate); E87.6 Hypokalemia; E11.22 Type 2 diabetes mellitus with diabetic chronic kidney disease; I48.91 Unspecified atrial fibrillation; I27.20 Pulmonary hypertension, unspecified; D50.9 Iron deficiency anemia, unspecified; Z87.891 Personal history of nicotine dependence; Z79.84 Long term (current) use of oral hypoglycemic drugs
CPT/HCPCS: 36415; 36569; 36600; 71045; 71046; 80048; 80053; 81001; 82803; 82962; 83036; 83605; 84484; 85025; 85027; 85610; 85730; 86713; 86738; 87040; 87070; 87086; 87205; 87449; 87641; 93005; 93970; 94002; 94003; 94640; 94667; 94668; 97110; 97116; 97163; 97166; 97530; 97535; 97802; 99251; 99285; J7030; J7040; J7050; A4216; G0463; J0696; J1940; J2405

== ENCOUNTER → 2019-05-05 11:52 | Outpatient (CLI) | payer MEDICARE, SELFPAY ==
[2019-05-05 11:25] VITALS: BMI 33.9
[2019-05-05 14:28] LABS: Absolute Lymphocyte Count 0.86 X10^3/uL (0.83-4.51); Absolute Neutrophil Count 9.2 X10^3/uL (2.0-7.7); Basophil# 0.01 X10^3/uL; Basophil% 0.1 % (0-1); Eosinophil# 0.02 X10^3/uL; Eosinophils% 0.2 % (0-5); Hematocrit 21.9 % (40-54); Hemoglobin 6.6 g/dL (13.0-16.5); Lymphocyte # 0.86 X10^3/ul (4.0); Mean Corp Hgb Conc 30.1 g/dL (32-36); Mean Corpuscular Volume 102.8 fL (80-94); Mean Platelet Vol. 9.4 fl (6.2-12.0); Monocyte# 0.65 X10^3/uL; NRBC Flagged by Analyzer 0 % (0-5); Neutrophil # 9.15 X10^3/uL (2.7-7.7); Neutrophil % 85.1 % (47-70); Platelet Count 234 K/mm3 (150-450); RBC Distribution Width CV 16.1 % (11.6-14.6); RBC Distribution Width SD 60.6 fl (35.1-43.9); Red Blood Count 2.13 M/mm3 (4.6-6.2); White Blood Count 10.8 K/mm3 (4.4-11.0)
[2019-05-05 14:45] LABS: Anion Gap 4 (5-15); BUN 28 mg/dL (7-18); Calcium,Total 8.6 mg/dL (8.5-10.1); Chloride 103 mmol/L (98-107); Creatinine, Serum 1.27 mg/dL (0.70-1.30); EST Glomerular Filtration Rate 57 mL/min (>60); Est Glom Filt Rate - Afr Amer 69 mL/min (>60); Glucose 124 mg/dL (74-106); Potassium 4.9 mmol/L (3.5-5.1); Sodium Level 137 mmol/L (136-145)
== END ==
PROVIDERS: Nurse Practitioner Acute Care; Family Provider Internal Medicine; PCP Internal Medicine; Referring Provider Internal Medicine Critical Care Medicine; Visit Provider Internal Medicine Critical Care Medicine
DX: A41.9 Sepsis, unspecified organism (principal); R65.21 Severe sepsis with septic shock; R53.83 Other fatigue
CPT/HCPCS: 36415; 80048; 85025

== ENCOUNTER → 2019-05-06 11:14 | Outpatient (CLI) | payer MEDICARE, SELFPAY ==
[2019-05-05 11:25] VITALS: BMI 33.9
[2019-05-06 10:47] LABS: Hematocrit 18.4 % (40-54); Mean Corp Hgb Conc 30.4 g/dL (32-36); Mean Corpuscular Hgb 31.1 pg (27.0-32.0); Mean Corpuscular Volume 102.2 fL (80-94); Mean Platelet Vol. 9.2 fl (6.2-12.0); POSITIVE COUNT YES; Platelet Count 192 K/mm3 (150-450); RBC Distribution Width SD 58.4 fl (35.1-43.9); RET-HE 26.8 pg (30-35); Reticulocyte Count 6.26 % (0.5-1.5); White Blood Count 12.2 K/mm3 (4.4-11.0)
[2019-05-06 10:56] LABS: Hemoglobin 5.6 g/dL (13.0-16.5)
[2019-05-08 12:06] LABS: Pathologist Review Reviewed
== END ==
PROVIDERS: Family Provider Internal Medicine; PCP Internal Medicine; Referring Provider Internal Medicine; Visit Provider Internal Medicine
DX: D64.9 Anemia, unspecified (principal)
CPT/HCPCS: 36415; 85027; 85045

== ENCOUNTER 2019-05-06 12:48 | Inpatient (IN) | payer MEDICARE, SELFPAY ==
[2019-05-05 11:25] VITALS: BMI 33.9
[2019-05-06] VITALS (17 sets, daily range): BP systolic 96–132; BP diastolic 41–65; PULSE 47–76; RESP 16–19; TEMP 36.1–37.2; O2SAT 92–100; BMI 32.3; BMI 30.1
--- NOTE | 2019-05-06 13:04 | EKG12_ITS ---
Test Reason : WEAKNESS Blood Pressure : / mmHG Vent. Rate : 074 BPM Atrial Rate : 074 BPM P-R Int : 170 ms QRS Dur : 076 ms QT Int : 386 ms P-R-T Axes : 053 016 017 degrees QTc Int : 428 ms Sinus rhythm with sinus arrhythmia with occasional Premature ventricular complexes Otherwise normal ECG Confirmed by YASEMIN BLACK, PREETI ([id number]), avid editor AC MONIQUE ([id number]) on 05/08/2019 1:48:17 PM Referred By: Nilesh Burrell Confirmed By:PREETI HAZEL MD
--- NOTE | 2019-05-06 13:04 | RAD_ITS ---
STUDY: X-RAY CHEST REASON FOR EXAM: Male, 84 years old. Cough and weakness. TECHNIQUE: PA and lateral views of the chest. COMPARISON: 04/18/2019. FINDINGS: There is improved left lower lung infiltrate. There is continued increased markings in the right lung base unchanged since the prior exam. There is no demonstrated pleural abnormality. Normal size heart. Normal mediastinum and bennett. Normal visualized pulmonary arteries. Normal visualized aortic arch and descending thoracic aorta. There are degenerative changes of the visualized thoracic spine. Normal visualized ribs, clavicles, and shoulders. There is no demonstrated abnormality of the visualized soft tissue structures of the upper abdomen. RAD/Chest PA and Lateral IMPRESSION: Improved left basilar infiltrate. Otherwise no significant change. Electronically Signed: James Hopkins MD at 14:01 EST Tel , Service support ,
[2019-05-06 13:20] LABS: Absolute Neutrophil Count 12.5 X10^3/uL (2.0-7.7); Basophil# 0.01 X10^3/uL; Basophil% 0.1 % (0-1); Lymphocyte % 5.7 % (19-41); Mean Corpuscular Hgb 30.7 pg (27.0-32.0); Mean Corpuscular Volume 102.3 fL (80-94); Mean Platelet Vol. 9.1 fl (6.2-12.0); Monocyte# 0.64 X10^3/uL; Monocyte% 4.6 % (0-10); NRBC Flagged by Analyzer 0 % (0-5); Neutrophil # 12.46 X10^3/uL (2.7-7.7); Neutrophil % 88.8 % (47-70); POSITIVE COUNT YES; Platelet Count 199 K/mm3 (150-450); RBC Distribution Width CV 16.1 % (11.6-14.6); RBC Distribution Width SD 59.2 fl (35.1-43.9); Red Blood Count 1.76 M/mm3 (4.6-6.2)
[2019-05-06 13:25] LABS: International Normalized Ratio 1.2; Prothrombin Time (Protime)PT. 15.3 SECONDS (11.7-14.9)
[2019-05-06 13:26] LABS: Partial Thromboplast Time 30.8 Seconds (24.1-36.2)
[2019-05-06 13:33] LABS: Hemoglobin 5.4 g/dL (13.0-16.5)
[2019-05-06 13:34] LABS: ALB/GLOB Ratio 0.6 RATIO (0.9-2.4); AST(SGOT) 9 U/L (15-37); Alanine Aminotransfer ALT/SGPT 17 U/L (16-61); Albumin, Serum 2.3 g/dL (3.2-5.0); Alkaline Phosphatase 69 U/L (45-117); Anion Gap 11 (5-15); BUN 48 mg/dL (7-18); BUN/Creat Ratio 27.4 RATIO (10-20); Calcium,Total 8.6 mg/dL (8.5-10.1); Chloride 103 mmol/L (98-107); Creatinine, Serum 1.75 mg/dL (0.70-1.30); EST Glomerular Filtration Rate 40 mL/min (>60); Est Glom Filt Rate - Afr Amer 48 mL/min (>60); Estimated Creatinine Clearance 31.87 ml/min; Globulin 3.7 g/dL (2.2-4.2); Glucose 266 mg/dL (74-106); Potassium 4.9 mmol/L (3.5-5.1); Sodium Level 137 mmol/L (136-145)
--- NOTE | 2019-05-06 14:38 | CON.PCM_ITS ---
Problem List (1) Upper GI bleed Status: Acute Reason for Consult Date of Consultation: 05/06/19 History of Present Illness: The patient is a 84 year old M here with anemia. The patient was recently admitted at the beginning of this month for pneumonia. He was given steroids at that time. He does not appear that he is on a PPI at home according to his medication list. He is not having any abdominal pain but he reports for the last week or so he is been having black stools. He was in the carpet technician office yesterday and they ordered a hemoglobin and it was 6.6. Today comes in with a hemoglobin of 5.4. He does report being weak. He is never had bleeding ulcers in the past. His last colonoscopy was 8 years ago and was normal. Past Medical History Past Medical History (Chronic Problems): Chronic Problems (Last Reviewed 05/05/19 @ 11:30 by LUCI Vee) Type 2 diabetes mellitus (Chronic) HTN (hypertension) (Chronic) Allergies No Known Allergies Allergy (Verified 05/06/19 12:48) Home Medications: Ambulatory Orders Medication Instructions Recorded Aspirin [Aspirin, Baby] 81 mg PO DAILY@0800 02/23/16 Amlodipine [Norvasc] 10 mg PO DAILY 06/16/18 Ipratropium [place] 0.06% 2 spray NASAL BID 06/16/18 [ATROVENT NASAL SPRAY] Albuterol Inhaler [Ventolin Hfa] 1 - 2 puff INHALATION Q4H PRN PRN 06/19/18 #1 inhaler Ferrous Gluconate 324 mg PO DAILY #60 tab 04/20/19 Furosemide [Lasix] 40 mg PO DAILY PRN #30 tab 04/20/19 Guaifenesin [Mucinex] 1,200 mg PO BID #14 tab 04/20/19 Insulin Aspart [Novolog Flexpen] See Protocol SUBCUT ACHS #1 ml 04/20/19 Insulin Glargine [Lantus SoloStar 20 units SUBCUT BREAKFAST #1 pen 04/20/19 Pen] Ipratropium/Albuterol Sulfate 3 ml INHALATION Q4HWA.RT #30 04/20/19 [Duoneb] ampul.neb Lisinopril [Zestril] 10 mg PO DAILY #0 04/20/19 Metformin HCl 500 mg PO BIDCM #0 04/20/19 Metoprolol(XL)Succ [Toprol Xl 50 mg PO DAILY #0 04/20/19 (Beta Ayala)] Potassium Chloride [K-Dur] 20 meq PO DAILY PRN PRN #30 tab 04/20/19 levofloxacin 500 mg tablet 500 mg PO Q24H 5 Days #5 tab 05/05/19 Surgical History: - - knee surgery, bladder tumor removed, aortic aneurysm repair. Psychiatric History: No pertinent psych hx Smoking Status: Never smoker - *Family History Maternal History Items: Cancer Paternal History Items: Heart Disease Review of Systems Constitutional: Denies: Anorexia, Fever Eyes: Denies: Blurred vision HEENT: Denies: Difficulty Swallowing Respiratory: Reports: Shortness of Breath. Denies: Cough Gastrointestinal: Reports: Melena. Denies: Abdominal Pain, Nausea, Vomiting Neurological: Denies: Balance problems Hematologic/ Lymphatic: Denies: Easy Bruising, Easy Bleeding Patient Problems: Active and Suspected Problems (Last Reviewed 05/05/19 @ 11:30 by Randi Araiza, [place]) Upper GI bleed (Acute) - Physical Exam Vitals/I&O's: Vital Signs Temp Pulse Resp BP Pulse Ox 97.0 F L 76 19 H 132/59 H 98 05/06/19 12:49 05/06/19 14:10 05/06/19 14:10 05/06/19 14:10 05/06/19 14:10 Oxygen Flow Rate (L/min) 3 Oxygen Delivery Method Nasal Cannula Weight: 225 lb Body Mass Index (BMI) 32.3 Intake and Output for Last 24 Hours 05/04/19 05/05/19 05/06/19 23:59 23:59 23:59 Intake Total 35 / 35 Balance 35 / 35 General: Alert, Oriented x3, Cooperative Neck: No JVD Lungs: Normal air movement Cardiovascular: Regular rate, Regular Rhythm Abdomen: Soft, Non Tender, Non-Distended Extremities: No clubbing Skin: No rashes Musculoskeletal: No Muscle Wasting Neurological: Cranial nerves II-XII grossly intact Psych/Mental Status: Normal Affect Laboratory Results 05/06/19 13:05: WBC 14.0 H, RBC 1.76 L, Hgb 5.4 L*, Hct 18.0 L, MCV 102.3 H, MCH 30.7, MCHC 30.0 L, RDW Std Deviation 59.2 H, RDW Coeff of James 16.1 H, Plt Count 199, MPV 9.1, Immature Gran % (Auto) 0.800, Neut % (Auto) 88.8 H, Lymph % (Auto) 5.7 L, [place] % (Auto) 4.6, Eos % (Auto) 0.0, Baso % (Auto) 0.1, Absolute Neuts (auto) 12.5 H, Absolute Lymphs (auto) 0.80 L, Nucleated RBC % 0, Diff Path Review September05/06/19 13:05: PT 15.3 H, INR 1.2, APTT 30.8 05/06/19 13:05: Sodium 137, Potassium 4.9, Chloride 103, Carbon Dioxide 23.0, Anion Gap 11, BUN 48 H, Creatinine 1.75 H, Estim Creat Clear Calc 31.87, Est GFR (MDRD) Af Amer 48 L, Est GFR (MDRD) Non-Af 40 L, BUN/Creatinine Ratio 27.4 H, Glucose 266 H, Calcium 8.6, Total Bilirubin 0.10 L, AST 9 L, ALT 17, Alkaline Phosphatase 69, Total Protein 6.0 L, Albumin 2.3 L, Globulin 3.7, Albumin/Globulin Ratio 0.6 L 05/06/19 13:05: Blood Type B POSITIVE, Antibody Screen NEGATIVE, Crossmatch See Detail Current Medications Azithromycin 500 mg/ Dextrose 255 mls @ 250 mls/hr IV X1 ONE Stop: 05/06/19 14:52 Assessment/Plan All Active Problems (Last Reviewed 05/05/19 @ 11:30 by Randi Araiza, [place]) Septic shock (Acute) Acute respiratory failure with hypoxia (Acute) Upper GI bleed (Acute) Sepsis (Acute) Community acquired pneumonia (Acute) Hypoxemia (Acute) Skin cancer (Resolved) 84-year-old male with upper GI bleed 1. The patient has been having melanotic stools for over a week. He was on steroids for his pneumonia during his last hospitalization at the beginning of the month. I believe he is either having stress gastritis or a stress ulcer. He has been started on a PPI and I recommended clear liquids today. N.p.o. after midnight. The hospitalist is admitting and transfusing him. Plan for EGD in the morning. 2. I explained endoscopy in detail to the patient. I explained the risks including but not limited to stroke or heart attack with anesthesia, perforation of the GI tract, bleeding, infection. I explained that any of these could necessitate further emergency surgery. The patient understands and all questions were answered sufficiently. The patient wishes to proceed with procedure. Chinedu Jackman MD Pager: [facility] [address] [place] [address] [address] [place] [address] Office:
[2019-05-06] MEDS: Ceftriaxone 1 GM/50 ML BAG IV (14:52)
--- NOTE | 2019-05-06 14:54 | ED.VISSUMM ---
- ER Visit Summary Date of Service: 05/06/19 Chief Complaint: Weak and short of breath History of Present Illness: The patient is a [address] Hart, Dr. Britt, Dr. Quiroz, and Dr. jason wright. He reports that he is had blood work yesterday and his hemoglobin was 6.6. It was repeated today it was 5.6. He reports that he has been short of breath and weak for the past 2 days. Patient reports that he was admitted to the hospital end of March with sepsis and pneumonia. He reports that he has had a cough ever since then. Is productive yellow sputum without blood. He denies any fever or chills. He does report that he is moderately short of breath. He denies any chest pain. Patient reports that he had black diarrhea approximately 1 week ago that seemed to resolve. He had a black formed stool today. He had a colonoscopy 8 to 10 years ago. He is unsure who did this. He is never had endoscopy. Physical Examination: Vitals: 97.0, 96/41, 47, 19, 92% on 3 L nasal cannula which is his home O2. General: Well-nourished and well-developed. Head: Normocephalic atraumatic. Neck: Supple, no lymphadenopathy. No JVD. Nontender. Cardiovascular: Irregular rhythm. No murmurs. Respiratory: No respiratory distress. Clear to auscultation bilaterally. Abdominal: Soft, nontender, nondistended, normal bowel sounds. No guarding, rebound, or peritoneal signs. Back: Nontender. Extremities: Nontender, 2+ pitting edema over lower extremities bilaterally. Skin: Normal color, no rash. Neurologic: Alert and oriented ?3. Cranial nerves II through XII are intact. Normal strength and sensation. Psych: Normal affect. Test Results: EKG is sinus at 74 with PVCs and nonspecific ST changes. CBC is markable for a white count of 14.0, H&H of 5.4 and 18, segmented neutrophils 89, lymphocytes of 6. Chem-7 shows a glucose of 266, BUN 48, creatinine 1.75. Clinical Impression(s) from Imaging Studies Chest X-Ray 05/06/19 13:04 IMPRESSION: Improved left basilar infiltrate. Otherwise no significant change. Electronically Signed: James Hopkins MD at 14:01 EST Tel , Service support , Emergency Department Course and Treatment: Patient was given a dose of Protonix IV. He was given Zithromax and Rocephin IV. Treatment Plan: The patient was discussed Dr. Jackman and with Dr. Burrell. He will be admitted to the hospital for further relation treatment. Disposition: Admitted in serious condition. Impression: 1. GI bleed, upper. 2. Anemia. 3. Pneumonia. This note was generated with Wattbotation software. It may contain incorrect words, spelling, and punctuation that were not noted in review of the chart prior to signing ED Disposition - Plan for ED Patient: Referrals: Yair Hart MD [Primary Care Provider] -
--- NOTE | 2019-05-06 14:57 | HP.PCM_ITS ---
Problem List (1) Septic shock Status: Inactive (2) Acute respiratory failure with hypoxia Status: Chronic (3) Upper GI bleed Status: Acute (4) Type 2 diabetes mellitus Status: Chronic Qualifiers: Diabetes mellitus terminal press operator insulin use: without detention use Diabetes mellitus complication status: with circulatory complication Diabetes mellitus complication detail: with other circulatory complications Qualified Code(s): E11.59 - Type 2 diabetes mellitus with other circulatory complications (5) Sepsis Status: Acute (6) Community acquired pneumonia Status: Acute Qualifiers: Laterality: unspecified laterality Qualified Code(s): J18.9 - Pneumonia, unspecified organism (7) Hypoxemia Status: Acute (8) New onset atrial fibrillation Status: Suspected (9) Skin cancer Status: Resolved (10) HTN (hypertension) Status: Chronic (11) Acute on chronic blood loss anemia Status: Acute History of Present Illness Date of Admission: 05/06/19 Chief Complaint: Black stool for 7 to 10 days The patient is a 84 year old M with multiple comorbidities as listed above was recently discharged on April 20, 2019 came to ER with black stool. Patient had 3-4 times liquid black tarry stool about a week ago and then it stopped. After that, he had 1 black solid stool today. Patient also complained of dyspnea on exertion on walking to bathroom or short walk along with dizziness and lightheadedness cough with clear sputum. Patient was on Solu-Medrol and prednisone during last hospital stay. Patient is also on baby aspirin. Patient was seen in pulmonary clinic after follow-up from septic shock secondary to pneumococcal pneumonia along with acute hypoxic respiratory failure and was found to be anemic in blood work 6.6/21.9 yesterday was reported to PCP. In ED, H&H 5.4/18, leukocytosis 14,000 with left shift, INR 1.2. BUN/creatinine elevated from baseline 28/1.2 7-40 8/1.75. [] Triage vitals shows blood pressure 96/41, per minute, pulse ox 96% on 3 L of oxygen this is baseline. Chest x-ray shows improved right basilar infiltrate but patient was given 5 days of Levaquin yesterday in pulmonary clinic and patient has leukocytosis and shortness of breath on exertion therefore will continue it. EKG normal sinus rhythm with sinus arrhythmia with occasional PVC. QTC 426 ms. Past Medical History Past Medical History (Chronic Problems): Chronic Problems (Last Reviewed 05/05/19 @ 11:30 by LUCI Vee) Acute respiratory failure with hypoxia (Chronic) Type 2 diabetes mellitus (Chronic) HTN (hypertension) (Chronic) Allergies No Known Allergies Allergy (Verified 05/06/19 12:48) Home Medications: Ambulatory Orders Medication Instructions Recorded Aspirin [Aspirin, Baby] 81 mg PO DAILY@0800 02/23/16 Amlodipine [Norvasc] 10 mg PO DAILY 06/16/18 Ipratropium [place] 0.06% 2 spray NASAL BID 06/16/18 [ATROVENT NASAL SPRAY] Albuterol Inhaler [Ventolin Hfa] 1 - 2 puff INHALATION Q4H PRN PRN 06/19/18 #1 inhaler Ferrous Gluconate 324 mg PO DAILY #60 tab 04/20/19 Furosemide [Lasix] 40 mg PO DAILY PRN #30 tab 04/20/19 Guaifenesin [Mucinex] 1,200 mg PO BID #14 tab 04/20/19 Insulin Aspart [Novolog Flexpen] See Protocol SUBCUT ACHS #1 ml 04/20/19 Insulin Glargine [Lantus SoloStar 20 units SUBCUT BREAKFAST #1 pen 04/20/19 Pen] Ipratropium/Albuterol Sulfate 3 ml INHALATION Q4HWA.RT #30 04/20/19 [Duoneb] ampul.neb Lisinopril [Zestril] 10 mg PO DAILY #0 04/20/19 Metformin HCl 500 mg PO BIDCM #0 04/20/19 Metoprolol(XL)Succ [Toprol Xl 50 mg PO DAILY #0 04/20/19 (Beta Ayala)] Potassium Chloride [K-Dur] 20 meq PO DAILY PRN PRN #30 tab 04/20/19 levofloxacin 500 mg tablet 500 mg PO Q24H 5 Days #5 tab 05/05/19 Surgical History: - - knee surgery, bladder tumor removed, aortic aneurysm repair. Psychiatric History: No pertinent psych hx Smoking Status: Never smoker - *Family History Maternal History Items: Cancer Paternal History Items: Heart Disease Review of Systems Constitutional: Denies: Chills, Fever, Weight Change HEENT: Denies: Head Aches, Sinus Congestion, Sinus Drainage Cardiovascular: Reports: Edema. Denies: Chest Pain, Palpitations Respiratory: Reports: Cough, Shortness of breath upon exertion, Sputum production, Wheezing. Denies: Shortness of breath at rest Gastrointestinal: Denies: Abdominal Pain, Nausea, Vomiting Genitourinary: Denies: Dysuria, Frequency Musculoskeletal: Denies: Joint Pain, Joint Tenderness Skin: Denies: Rash, Wounds Neurological: Denies: Numbness, Tingling, Focal weakness Psychiatric: Denies: Anxiety, Depression, Homicidal Ideations, Suicidal Ideations Hematologic/ Lymphatic: Denies: Easy Bruising, Easy Bleeding VTE Information - Inpt Only VTE Present on Admission: No VTE Mechan Device Prophylaxis: SCD's Reason prophylaxis not ordered:: Medical Contraindication Patient Problems: Active and Suspected Problems (Last Reviewed 05/05/19 @ 11:30 by RYAN VeeC) Upper GI bleed (Acute) Acute on chronic blood loss anemia (Acute) - Physical Exam Vitals/I&O's: Vital Signs Temp Pulse Resp BP Pulse Ox 97.0 F L 76 19 H 132/59 H 98 05/06/19 12:49 05/06/19 14:10 05/06/19 14:10 05/06/19 14:10 05/06/19 14:10 Oxygen Flow Rate (L/min) 3 Oxygen Delivery Method Nasal Cannula Weight: 225 lb Body Mass Index (BMI) 32.3 Intake and Output for Last 24 Hours 05/04/19 05/05/19 05/06/19 23:59 23:59 23:59 Intake Total 35 / 35 Balance 35 / 35 General: Alert, Oriented x3, Cooperative HEENT: Atraumatic, PERRLA, EOMI, Normocephalic Neck: Supple, No JVD, Negative Carotid Bruits Lungs: No wheeze, No rales, Diminished - Head entry is bilaterally diminished., Rhonchi - Mild rhonchi on left side Cardiovascular: Regular rate, Regular Rhythm, Normal S1, Normal S2, No murmurs Abdomen: Bowel Sounds Present, Soft, Non Tender, Non-Distended Extremities: Capillary Refill Less than 3 Seconds, Edema Skin: No rashes, No breakdown Musculoskeletal: No Tenderness to Palpation of Joints or Extremities Neurological: Cranial nerves II-XII grossly intact, Deep Tendon Reflexes 2+/4 and Symmetrical, Neuro grossly intact Psych/Mental Status: Normal Affect, Appropriate Laboratory Results 05/06/19 13:05: WBC 14.0 H, RBC 1.76 L, Hgb 5.4 L*, Hct 18.0 L, MCV 102.3 H, MCH 30.7, MCHC 30.0 L, RDW Std Deviation 59.2 H, RDW Coeff of James 16.1 H, Plt Count 199, MPV 9.1, Immature Gran % (Auto) 0.800, Neut % (Auto) 88.8 H, Lymph % (Auto) 5.7 L, [place] % (Auto) 4.6, Eos % (Auto) 0.0, Baso % (Auto) 0.1, Absolute Neuts (auto) 12.5 H, Absolute Lymphs (auto) 0.80 L, Nucleated RBC % 0, Diff Path Review September05/06/19 13:05: PT 15.3 H, INR 1.2, APTT 30.8 05/06/19 13:05: Sodium 137, Potassium 4.9, Chloride 103, Carbon Dioxide 23.0, Anion Gap 11, BUN 48 H, Creatinine 1.75 H, Estim Creat Clear Calc 31.87, Est GFR (MDRD) Af Amer 48 L, Est GFR (MDRD) Non-Af 40 L, BUN/Creatinine Ratio 27.4 H, Glucose 266 H, Calcium 8.6, Total Bilirubin 0.10 L, AST 9 L, ALT 17, Alkaline Phosphatase 69, Total Protein 6.0 L, Albumin 2.3 L, Globulin 3.7, Albumin/Globulin Ratio 0.6 L 05/06/19 13:05: Blood Type B POSITIVE, Antibody Screen NEGATIVE, Crossmatch See Detail 05/06/19 14:45: Lactic Acid Pending Current Medications Albuterol/Ipratropium (Duoneb) 3 ml INHALATION Q4HWA.RT CORI Amlodipine Besylate (Norvasc) 10 mg PO DAILY CORI Ferrous Gluconate (Ferrous Gluconate) 324 mg PO DAILY CORI Pantoprazole Sodium 40 mg/ (Sodium Chloride) 110 mls @ 330 mls/hr IV Q12 CROI Insulin Glargine (Lantus (Bkc)) 20 units SC BREAKFAST CORI Ipratropium [place] (Atrovent Nasal [place] (G)) 2 spray NASAL BID CORI Metoprolol Succinate (Toprol Xl (Beta Ayala)) 50 mg PO DAILY CORI Assessment/Plan All Active Problems (Last Reviewed 05/05/19 @ 11:30 by Randi Araiza, [place]) Upper GI bleed (Acute) Acute on chronic blood loss anemia (Acute) Sepsis (Acute) Community acquired pneumonia (Acute) Hypoxemia (Acute) Skin cancer (Resolved) The patient is a 84 year old M with multiple comorbidities as listed above was recently discharged on April 20, 2019 came to ER with black stoo In ED, H&H 5.4/18, leukocytosis 14,000 with left shift, INR 1.2. BUN/creatinine elevated from baseline 28/1.2 7-40 8/1.75. [] Triage vitals shows blood pressure 96/41, per minute, pulse ox 96% on 3 L of oxygen this is baseline. Chest x-ray shows improved right basilar infiltrate but patient was given 5 days of Levaquin yesterday in pulmonary clinic and patient has leukocytosis and shortness of breath on exertion therefore will continue it. EKG normal sinus rhythm with sinus arrhythmia with occasional PVC. QTC 426 ms. 1. Acute on chronic severe blood loss anemia/iron deficiency anemia secondary to upper GI bleed: Patient is being admitted in PCU. 2 units of PRBC ordered. Lasix 40 mg in between 2 transfusion PRN if for fluid overload/shortness of breath. Patient was given Protonix 80 mg IV bolus in ED and will continue 40 mg every 12 hourly. Patient was seen by surgeon and scheduled for EGD tomorrow a. m. Aspirin discontinued. NIH 6.6/21.9 on 05/05 2. Upper GI bleed most probably secondary to aspirin/Solu-Medrol/prednisone during last hospitalization: As mentioned above. 3. Subacute hypoxic respiratory failure secondary to recent pneumococcal pneumonia: Chest x-ray shows improved right basilar infiltrate but patient still has cough with clear sputum, leukocytosis, dyspnea on exertion and occasional wheezing. Most probably non-resolving/persistent pneumonia. 5 more days of Levaquin ordered. Patient was discharged on April 21, 2019 after admission for septic shock secondary to pneumococcal pneumonia. 4. Acute kidney injury on chronic kidney disease stage III : BUN/creatinine 48/1.75. Hold lisinopril. Lasix as needed for shortness of breath/pulmonary ed aicha. 5. Diabetes mellitus type 2: Accu-Chek with Humalog sliding scale. Last A1c 7.3 on 04/17. Accu-Cheks before meals and at bedtime and cover with Humalog sliding scale. On Lantus 20 units subcutaneous daily at breakfast. 6. Chronic diastolic heart failure/pulmonary hypertension: Patient had echo done in May 2018. Reported as EF 55% with normal LV systolic function. Stage I diastolic dysfunction. RVSP 50 mmHg consistent with mild to moderate pulmonary hypertension. EKG normal sinus rhythm minus arrhythmia. Patient had left leg generally is more edematous than right leg will stay and ultrasound venous Doppler was done which was negative for DVT. 7. Other multiple comorbidities include hypertension, mixed chronic microcytic anemia/iron deficiency anemia: Multiple comorbidities complicates the present care and expect difficult and delay recovery DVT prophylaxis: Pharmacologic is contraindicated secondary to severe anemia. Bilateral SCDs. Clinical Impression(s) from Imaging Studies Chest X-Ray 05/06/19 13:04 IMPRESSION: Improved left basilar infiltrate. Otherwise no significant change. Code Visit Inpatient E&M: 08821 Init Hosp L3
[2019-05-06 15:25] LABS: Lactic Acid 4.3 mmol/L (0.4-1.9)
[2019-05-06 17:41] LABS: Bedside Glucose 126 mg/dL (70-110)
[2019-05-06 18:30] LABS: Magnesium 1.7 mg/dL (1.6-2.6)
[2019-05-06 18:51] LABS: Reflex Lactate? Y
[2019-05-06] MEDS: Ipratropium/Albuterol Sulfate 3 ML AMPUL.NEB INHALATION (19:45)
[2019-05-06] MEDS: Furosemide 40 MG/4 ML Vial IV (20:57)
[2019-05-06 20:58] LABS: Lactic Acid 1.6 mmol/L (0.4-1.9)
[2019-05-06] MEDS: Ipratropium Bromide 0.06% NASAL SPRAY 2 SPRAY NASAL (21:15)
[2019-05-06] MEDS: MELATONIN 3 MG TABLET PO (21:15)
[2019-05-06 22:41] LABS: Bedside Glucose 81 mg/dL (70-110)
[2019-05-07] VITALS (22 sets, daily range): BP systolic 96–128; BP diastolic 50–61; PULSE 56–77; RESP 16–18; TEMP 35.9–37; O2SAT 93–100
--- NOTE | 2019-05-07 | GASB_PTH ---
PATIENT: JOAN HOWARD LOC: [facility] U#:[id number] AGE/SX: 84/M ROOM: [facility] RE05/06/[address]: Dr. Yaw Lyn DO : 1935 BED: 1 DIS: 05/09/2019 SPEC #: [id number] RECD: 05/07/19 08:44 STATUS: KELL REQ #: [id number] GERALDO: 05/07/19 00:[address]: Chinedu Jackman DEPT: SURGICAL PATHOLOGY RECD BY: Maurice Joseph ENTERED: 05/08/19 12:06 SP TYPE: Gastric Bx OTHR DR: DO Dr. Nilesh Goldsmith MD Dr. Victor Velasquez, MD Tissues: Gastric mucous membrane Procedures: Special Stain Group II Surgery Specimen Level IV Alcian Blue/PAS (control) Comments: @ Ordering doctor for SUIV edited from to @ luis CRAWFORD at 05/08/19 1324 @ Submitting doctor edited from to @ by NAHOMIOD at 05/08/19 1324 HEADER OPERATION: EGD ([facility]) PRE-OP DIAGNOSIS: Anemia TISSUE SUBMITTED: Antral biopsy for H. pylori and pathology MICROSCOPIC DIAGNOSIS Antral biopsy: Fragments of gastric mucosa with mild chronic inflammation. 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 Negative for dysplasia. See comment. Elkin 05/09/19 COMMENT The results of immunohistochemistry for Helicobacter pylori will be reported separately ([id number]). Alcian blue/PAS stain with matched control is used in the evaluation of the specimen. MICROSCOPIC DESCRIPTION Slides are reviewed. GROSS DESCRIPTION Received in fixative is one container labeled with the patient's name and designated antral biopsy. The specimen consists of multiple irregular fragments of light singh soft tissue that in aggregate measure 0.5 x 0.3 x 0.1 cm. The specimen is totally submitted in one cassette. / FREDI:fannie 05/08/19 TC:3 CPT: 94819, 08205
--- NOTE | 2019-05-07 | IMM_PTH ---
PATIENT: JOAN HOWARD LOC: [facility] U#:[id number] AGE/SX: 84/M ROOM: [facility] RE05/06/[address]: Dr. Yaw Lyn DO : 1935 BED: 1 DIS: 05/09/2019 SPEC #: [id number] RECD: 05/08/19 12:34 STATUS: KELL REQ #: [id number] GERALDO: 05/07/19 00:[address]: Chinedu Jackman DEPT: IMMUNOHISTOCHEMISTRY RECD BY: Dilia Singletary ENTERED: 05/08/19 12:35 SP TYPE: IMMUNO OTHR DR: DO Dr. Nilesh Goldsmith MD Dr. Victor Velasquez, MD Tissues: Stomach, NOS Procedures: H Pylori (initial) PHYSICIAN & INSTITUTION [place] [id number] SPECIMEN INFORMATION: Tissue Source: Antral biopsy Clinical Info: Anemia Specimen Number: [id number] CPT code: 29895 METHODOLOGY: Deparaffinized sections of prefer/formalin-fixed tissue or PAP/DQ stained slides are incubated with monoclonal/polyclonal antibodies/oligonucleotide probes. Localization is made via biotin free immunoperoxidase method. Appropriate controls are performed and reacted as expected. Results on target cell population are indicated in the following table: RESULTS: ANTIBODY / CLONE RESULT H Pylori (polyclonal) negative These tests were developed and their performance characteristics determined by [facility]. They may not have been cleared or approved by the U.S. Food and Drug Administration. The FDA has determined that such clearance or approval is not necessary. INTERPRETATION: Antral biopsy: Negative for Helicobacter pylori organisms. SJ:fannie 05/09/19
[2019-05-07 01:57] LABS: Hemoglobin 7.8 g/dL (13.0-16.5)
--- NOTE | 2019-05-07 05:55 | EKG12_ITS ---
Test Reason : AM EKG Blood Pressure : / mmHG Vent. Rate : 067 BPM Atrial Rate : 067 BPM P-R Int : 166 ms QRS Dur : 090 ms QT Int : 410 ms P-R-T Axes : 047 -04 008 degrees QTc Int : 433 ms Sinus rhythm with Premature supraventricular complexes Otherwise normal ECG No previous ECGs available Confirmed by AMAN BLACK, TRENT ([id number]), editor greeting card AC MONIQUE ([id number]) on 05/12/2019 11:16:34 AM Referred By: Nilesh Burrell Confirmed By:ANOOP NEWTON MD
[2019-05-07 06:26] LABS: Bedside Glucose 91 mg/dL (70-110)
[2019-05-07 06:37] LABS: Absolute Lymphocyte Count 0.72 X10^3/uL (0.83-4.51); Absolute Neutrophil Count 5.1 X10^3/uL (2.0-7.7); Basophil# 0.01 X10^3/uL; Basophil% 0.2 % (0-1); Eosinophil# 0.01 X10^3/uL; Eosinophils% 0.2 % (0-5); Hematocrit 24.5 % (40-54); Hemoglobin 7.9 g/dL (13.0-16.5); Lymphocyte # 0.72 X10^3/ul (4.0); Lymphocyte % 11.5 % (19-41); Mean Corp Hgb Conc 32.2 g/dL (32-36); Mean Corpuscular Volume 90.1 fL (80-94); Mean Platelet Vol. 9.1 fl (6.2-12.0); Monocyte# 0.41 X10^3/uL; Monocyte% 6.5 % (0-10); NRBC Flagged by Analyzer 0 % (0-5); Neutrophil # 5.09 X10^3/uL (2.7-7.7); Neutrophil % 81.1 % (47-70); Platelet Count 144 K/mm3 (150-450); RBC Distribution Width CV 18.6 % (11.6-14.6); RBC Distribution Width SD 59.2 fl (35.1-43.9); Red Blood Count 2.72 M/mm3 (4.6-6.2); White Blood Count 6.3 K/mm3 (4.4-11.0)
[2019-05-07] MEDS: Ipratropium/Albuterol Sulfate 3 ML AMPUL.NEB INHALATION ×4 (06:56→19:51)
[2019-05-07 07:14] LABS: Anion Gap 6 (5-15); BUN 38 mg/dL (7-18); BUN/Creat Ratio 27.9 RATIO (10-20); Calcium,Total 8.5 mg/dL (8.5-10.1); Chloride 103 mmol/L (98-107); Creatinine, Serum 1.36 mg/dL (0.70-1.30); EST Glomerular Filtration Rate 53 mL/min (>60); Est Glom Filt Rate - Afr Amer 64 mL/min (>60); Glucose 90 mg/dL (74-106); Sodium Level 138 mmol/L (136-145); Thyroid Stim Hormone (TSH) 2.77 uIU/mL (0.358-3.74)
[2019-05-07] MEDS: Lactated Ringers 1,000 ML 100 ML IV (07:54)
--- NOTE | 2019-05-07 07:58 | OP.EGD_ITS ---
Patient Name: Michael Coffey Procedure Date: 05/07/2019 7:25 AM Date of : 1935 Age: 84 Procedure: Upper GI endoscopy Indications: Melena Providers: Chinedu Jackman MD Referring MD: Nilesh Burrell Medicines: Monitored Anesthesia Care Patient Profile: This is an 84 year old male. Refer to note in patient chart for documentation of history and physical. Complications: No immediate complications. Estimated blood loss: Minimal. Procedure: Pre-Anesthesia Assessment: - Prior to the procedure, a History and Physical was performed, and patient medications and allergies were reviewed. The patient's tolerance of previous anesthesia was also reviewed. The risks and benefits of the procedure and the sedation options and risks were discussed with the patient. All questions were answered, and informed consent was obtained. Prior Anticoagulants: The patient has taken no previous anticoagulant or antiplatelet agents. After reviewing the risks and benefits, the patient was deemed in satisfactory condition to undergo the procedure. After obtaining informed consent, the endoscope was passed under direct vision. Throughout the procedure, the patient's blood pressure, pulse, and oxygen saturations were monitored continuously. The gastroscope was introduced through the mouth, and advanced to the second part of duodenum. The upper GI endoscopy was accomplished without difficulty. The patient tolerated the procedure well. Scope In: 7:50:35 AM Scope Out: 7:53:35 AM Total Procedure Duration Time 0 hours 3 minutes 0 seconds Findings: One non-bleeding cratered duodenal ulcer with pigmented material was found in the second portion of the duodenum. Biopsies were taken with a cold forceps in the gastric antrum for Helicobacter pylori testing. The stomach was normal. The esophagus was normal. Impression: - One non-bleeding duodenal ulcer with pigmented material. - Normal stomach. - Normal esophagus. - Biopsies were taken with a cold forceps for Helicobacter pylori testing. Recommendation: - Return patient to hospital [facility] for ongoing care. - Advance diet as tolerated. - Continue present medications. - Use Protonix (pantoprazole) 20 mg PO BID for 3 months. Procedure Code(s): --- Professional --- 39960, Esophagogastroduodenoscopy, flexible, transoral; with biopsy, single or multiple Diagnosis Code(s): --- Professional --- K26.9, Duodenal ulcer, unspecified as acute or chronic, without hemorrhage or perforation K92.1, Melena (includes Hematochezia) CPT copyright 2017 [employer]. All rights reserved. The codes documented in this report are preliminary and upon car cleaner review may be revised to meet current compliance requirements. Chinedu Jackman MD 05/07/2019 7:57:51 AM This report has been signed electronically. Number of Addenda: 0 Note Initiated On: 05/07/2019 7:25 AM
--- NOTE | 2019-05-07 08:04 | PCM.PN.BLA ---
Progress Note Performed an EGD this morning. The patient had a very large and deep duodenal ulcer with stigmata of bleeding. There was no active bleeding at this time. Stomach was biopsied for H. pylori. I have started him on a full liquid diet and added Carafate to the twice daily PPI. The patient will need discharge on both medications once he is stable. I would not like to advance to beyond fulls for the next 24 hours. If the patient rebleeds or has significant bleeding he would need either transfer for interventional radiology treatment or he would need open surgery for suture of this ulcer as it is very large and not amenable to any endoscopic treatment if it does rebleed. Chinedu Jackman MD Pager: [facility] [address] [place] [address] [address] [place] [address] Office: [facility] Vital Signs/Narrative: Vital Signs Pulse Resp Pulse Ox 05/07/19 07:11 60 05/07/19 06:56 75 18 96
[2019-05-07] MEDS: 0.9% Saline Lock 10 ML Syringe IV ×2 (08:11→21:15)
[2019-05-07] MEDS: Ipratropium Bromide 0.06% NASAL SPRAY 2 SPRAY NASAL ×2 (09:21→21:14)
[2019-05-07] MEDS: Ensure Clear 120 ML Liquid PO (09:26)
[2019-05-07] MEDS: Ferrous Gluconate 324 MG Tablet PO (09:26)
[2019-05-07] MEDS: Metoprolol(XL)Succ 50 MG Tablet PO (09:28)
[2019-05-07] MEDS: amLODIPine 10 MG Tablet PO (09:29)
[2019-05-07] MEDS: levoFLOXacin IV 500 MG/100 ML BAG 100 MG IV (10:21)
[2019-05-07 11:45] LABS: Bedside Glucose 135 mg/dL (70-110)
[2019-05-07] MEDS: Sucralfate 1 GM Tablet PO ×3 (12:06→21:14)
[2019-05-07] MEDS: Furosemide 40 MG/4 ML Vial IV (12:08)
--- NOTE | 2019-05-07 15:35 | PCM.PN.HOSP ---
Patient Problems: Active and Suspected Problems (Last Reviewed 05/05/19 @ 11:30 by Randi Araiza NP-Sarai) Upper GI bleed (Acute) Acute on chronic blood loss anemia (Acute) Reason for Visit: Severe anemia secondary to upper GI bleed with hypotension Objective: Blood pressure recovered with IV fluid and blood transfusion, PRBC. Patient had 2 units of PRBC transfusion. BP 112/53, heart rate 71 pulse ox 95% on room air. Patient had EGD in the morning and results discussed with the patient. Vitals/I&O's: Vital Signs Temp Pulse Resp BP Pulse Ox 97.3 F L 71 16 112/53 L 95 05/07/19 14:45 05/07/19 14:45 05/07/19 14:45 05/07/19 14:45 05/07/19 14:45 Oxygen Flow Rate (L/min) 2 Oxygen Delivery Method Room Air Weight: 210 lb 1.608 oz Body Mass Index (BMI) 30.0 Intake and Output for Last 24 Hours 05/05/19 05/06/19 05/07/19 23:59 23:59 23:59 Intake Total 1070 / 1070 1158.33 / 1158.33 Output Total 750 / 750 1750 / 1750 Balance 320 / 320 -591.67 / -591.67 General: Alert, Oriented x3, Cooperative HEENT: Atraumatic, PERRLA, EOMI, Normocephalic Neck: Supple, No JVD, Negative Carotid Bruits Lungs: No wheeze, No rales, Diminished, Rhonchi - Rhonchi on the left side of lung. Cardiovascular: Regular rate, Regular Rhythm, Normal S1, Normal S2, No murmurs Abdomen: Bowel Sounds Present, Soft, Non Tender, Non-Distended Extremities: Capillary Refill Less than 3 Seconds, Edema Skin: No rashes, No breakdown Musculoskeletal: No Tenderness to Palpation of Joints or Extremities Neurological: Cranial nerves II-XII grossly intact, Deep Tendon Reflexes 2+/4 and Symmetrical, Neuro grossly intact Psych/Mental Status: Normal Affect, Appropriate Laboratory Results 05/06/19 13:05: Blood Type B POSITIVE, Antibody Screen NEGATIVE, Crossmatch See Detail 05/06/19 13:05: Magnesium 1.7 05/06/19 17:33: POC Glucose 126 H 05/06/19 20:03: Lactic Acid 1.6 05/06/19 21:12: POC Glucose 81 05/07/19 01:46: Hgb 7.8 L 05/07/19 05:54: WBC 6.3, RBC 2.72 L, Hgb 7.9 L, Hct 24.5 L, MCV 90.1 D, MCH 29.0, MCHC 32.2, RDW Std Deviation 59.2 H, RDW Coeff of James 18.6 H, Plt Count 144 L, MPV 9.1, Immature Gran % (Auto) 0.500, Neut % (Auto) 81.1 H, Lymph % (Auto) 11.5 L, [place] % (Auto) 6.5, Eos % (Auto) 0.2, Baso % (Auto) 0.2, Absolute Neuts (auto) 5.1, Absolute Lymphs (auto) 0.72 L, Nucleated RBC % 0 05/07/19 05:54: Sodium 138, Potassium 4.0, Chloride 103, Carbon Dioxide 29.0, Anion Gap 6, BUN 38 H, Creatinine 1.36 H, Estim Creat Clear Calc 41.00, Est GFR (MDRD) Af Amer 64, Est GFR (MDRD) Non-Af 53 L, BUN/Creatinine Ratio 27.9 H, Glucose 90, Calcium 8.5, TSH 2.77 05/07/19 05:57: POC Glucose 91 05/07/19 11:15: POC Glucose 135 H Current Medications Acetaminophen (Tylenol) 650 mg PO Q6H PRN PRN PRN Reason: Pain Score 1-3/Temp > 100.7 F Albuterol Sulfate (Ventolin Aerosols) 2.5 mg INHALATION Q2H PRN PRN PRN Reason: SOB/Wheezing Albuterol/Ipratropium (Duoneb) 3 ml INHALATION Q4HWA.RT [facility] Last Admin: 05/07/19 11:50 Dose: 3 ml Documented by: Amlodipine Besylate (Norvasc) 10 mg PO DAILY [facility] Last Admin: 05/07/19 09:29 Dose: 10 mg Documented by: [facility] Admin: 05/07/19 09:26 Dose: 324 mg Documented by: Furosemide (Lasix) 40 mg IV DAILY [facility] Last Admin: 05/07/19 12:08 Dose: 40 mg Documented by: Glucagon () 1 mg IM .X1 PRN PRN Reason: Hypoglycemia Guaifenesin (Robitussin) 20 ml PO Q4H PRN PRN PRN Reason: COUGH Pantoprazole Sodium 40 mg/ (Sodium Chloride) 110 mls @ 330 mls/hr IV Q12 [facility] Last Infusion: 05/07/19 09:50 Dose: Infused Documented by: Sodium Chloride () 500 mls @ 15 mls/hr IV PRN PRN PRN Reason: Blood Transfusion Dextrose (Dextrose 10%-Water) 250 mls @ 999 mls/hr IV .Q16M PRN; Protocol PRN Reason: HYPOGLYCEMIA Levofloxacin (Levaquin Iv) 250 mg in 50 mls @ 50 mls/hr IV Q24 [facility] Stop: 05/10/19 10:59 Insulin Glargine (Lantus ([facility])) 20 units SC BREAKFAST [facility] Last Admin: 05/07/19 09:27 Dose: Not Given Documented by: Insulin Human Lispro (Humalog Kwikpen ([facility])) 0 unit SC ACHS [facility]; Protocol Last Admin: 05/07/19 11:52 Dose: Not Given Documented by: Ipratropium [place] (Atrovent Nasal [place] (G)) 2 spray NASAL BID [facility] Last Admin: 05/07/19 09:21 Dose: 2 spray Documented by: Melatonin (Melatonin) 3 mg PO QHS [facility] Last Admin: 05/06/19 21:15 Dose: 3 mg Documented by: Metoprolol Succinate (Toprol Xl (Beta Ayala)) 50 mg PO DAILY [facility] Last Admin: 05/07/19 09:28 Dose: 50 mg Documented by: Morphine Sulfate () 2 mg IV Q3H PRN PRN PRN Reason: Pain Score 6-10/10 Nitroglycerin (Nitrostat) 0.4 mg SUBLINGUAL Q5M PRN PRN Reason: CARDIAC/CHEST PAIN Nutritional Formula (Lactose Free) (Ensure Enlive) 120 ml PO 4X/DAY [facility] Last Admin: 05/07/19 14:53 Dose: Not Given Documented by: Oxycodone HCl (Oxyir) 5 mg PO Q4H PRN PRN PRN Reason: Pain Score 4-5/10 Prochlorperazine Edisylate (Compazine Iv) 5 mg IV Q4H PRN PRN PRN Reason: Breakthrough Nausea/Vomiting Senna/Docusate Sodium (Senokot-S, Estefany-Colace) 2 tablet PO BID PRN PRN PRN Reason: Constipation Sodium Chloride () 10 - 40 ml IV UD PRN PRN Reason: SALINE FLUSH Last Admin: 05/07/19 08:11 Dose: 10 ml Documented by: Sucralfate (Carafate) 1 gm PO 1HR_ACHS [facility] Last Admin: 05/07/19 14:53 Dose: 1 gm Documented by: STROKE Vital Signs/Narrative: Vital Signs Temp Pulse Resp BP Pulse Ox 05/07/19 14:45 97.3 F L 71 16 112/53 L 95 05/07/19 14:00 95 05/07/19 11:50 73 18 95 Medical Necessity - Tobacco Use Smoking Status: Never smoker Assessment/Plan All Active Problems (Last Reviewed 05/05/19 @ 11:30 by Randi Araiza NP-C) Upper GI bleed (Acute) Acute on chronic blood loss anemia (Acute) Sepsis (Acute) Community acquired pneumonia (Acute) Hypoxemia (Acute) Skin cancer (Resolved) The patient is a 84 year old M with multiple comorbidities as listed above was recently discharged on April 20, 2019 came to ER with nyasia weber In ED, H&H 5.4/18, leukocytosis 14,000 with left shift, INR 1.2. BUN/creatinine elevated from baseline 28/1.2 7-40 8/1.75. [] Triage vitals shows blood pressure 96/41, per minute, pulse ox 96% on 3 L of oxygen this is baseline. Chest x-ray shows improved right basilar infiltrate but patient was given 5 days of Levaquin yesterday in pulmonary clinic and patient has leukocytosis and shortness of breath on exertion therefore will continue it. EKG normal sinus rhythm with sinus arrhythmia with occasional PVC. QTC 426 ms. 1. Acute on chronic severe blood loss anemia/iron deficiency anemia secondary to upper GI bleed: Patient is being admitted in PCU. 2 units of PRBC ordered. Lasix 40 mg in between 2 transfusion PRN if for fluid overload/shortness of breath. Patient was given Protonix 80 mg IV bolus in ED and will continue 40 mg every 12 hourly. Patient was seen by surgeon and scheduled for EGD tomorrow a.m. Aspirin discontinued. NIH 6.6/21.9 on 05/05 05/07: H&H last week 7.9 from 5.4 after 2 units of PRBC transfusion. Iron infusion 200 mg IV for 2 days. Monitor CBC tomorrow a.m. 2. Upper GI bleed most probably secondary to aspirin/Solu-Medrol/prednisone during last hospitalization: As mentioned above. 05/07: Small duodenal ulcer found, nonbleeding. On PPI every 12. 3. Subacute hypoxic respiratory failure secondary to recent pneumococcal pneumonia: Chest x-ray shows improved right basilar infiltrate but patient still has cough with clear sputum, leukocytosis, dyspnea on exertion and occasional wheezing. Most probably non-resolving/persistent pneumonia. 5 more days of Levaquin ordered. Patient was discharged on April 21, 2019 after admission for septic shock secondary to pneumococcal pneumonia. 05/07: 3 more days of antibiotics, Levaquin. Change to oral. 4. Acute kidney injury on chronic kidney disease stage III : BUN/creatinine 48/1.75. Hold lisinopril. Lasix as needed for shortness of breath/pulmonary edema. 05/07: Creatinine is improved to 38/1.36. His baseline creatinine runs around 1.4. Lasix resumed. Hold lisinopril. 5. Diabetes mellitus type 2: Accu-Chek with Humalog sliding scale. Last A1c 7.3 on 04/17. Accu-Cheks before meals and at bedtime and cover with Humalog sliding scale. On Lantus 20 units subcutaneous daily at breakfast. Glucose is controlled. 6. Chronic diastolic heart failure/pulmonary hypertension: Patient had echo done in May 2018. Reported as EF 55% with normal LV systolic function. Stage I diastolic dysfunction. RVSP 50 mmHg consistent with mild to moderate pulmonary hypertension. EKG normal sinus rhythm minus arrhythmia. Patient had left leg generally is more edematous than right leg will stay and ultrasound venous Doppler was done which was negative for DVT. 7. Other multiple comorbidities include hypertension, mixed chronic microcytic anemia/iron deficiency anemia: Multiple comorbidities complicates the present care and expect difficult and delay recovery DVT prophylaxis: Pharmacologic is contraindicated secondary to severe anemia. Bilateral SCDs. Clinical Impression(s) from Imaging Studies Chest X-Ray 05/06/19 13:04 IMPRESSION: Improved left basilar infiltrate. Otherwise no significant change. Laboratory Results 12/21/19 13:05: Blood Type B POSITIVE, Antibody Screen NEGATIVE, Crossmatch See Detail 05/06/19 13:05: Magnesium 1.7 05/06/19 17:33: POC Glucose 126 H 05/06/19 20:03: Lactic Acid 1.6 05/06/19 21:12: POC Glucose 81 05/07/19 01:46: Hgb 7.8 L 05/07/19 05:54: WBC 6.3, RBC 2.72 L, Hgb 7.9 L, Hct 24.5 L, MCV 90.1 D, MCH 29.0, MCHC 32.2, RDW Std Deviation 59.2 H, RDW Coeff of James 18.6 H, Plt Count 144 L, MPV 9.1, Immature Gran % (Auto) 0.500, Neut % (Auto) 81.1 H, Lymph % (Auto) 11.5 L, [place] % (Auto) 6.5, Eos % (Auto) 0.2, Baso % (Auto) 0.2, Absolute Neuts (auto) 5.1, Absolute Lymphs (auto) 0.72 L, Nucleated RBC % 0 05/07/19 05:54: Sodium 138, Potassium 4.0, Chloride 103, Carbon Dioxide 29.0, Anion Gap 6, BUN 38 H, Creatinine 1.36 H, Estim Creat Clear Calc 41.00, Est GFR (MDRD) Af Amer 64, Est GFR (MDRD) Non-Af 53 L, BUN/Creatinine Ratio 27.9 H, Glucose 90, Calcium 8.5, TSH 2.77 05/07/19 05:57: POC Glucose 91 05/07/19 11:15: POC Glucose 135 H Code Visit Inpatient E&M: 37508 Subs Hosp L3
[2019-05-07 16:46] LABS: Bedside Glucose 134 mg/dL (70-110)
[2019-05-07] MEDS: MELATONIN 3 MG TABLET PO (21:14)
[2019-05-07 21:55] LABS: Bedside Glucose 151 mg/dL (70-110)
[2019-05-08] VITALS (13 sets, daily range): BP systolic 104–127; BP diastolic 49–65; PULSE 71–89; RESP 16–21; TEMP 36.6–37.1; O2SAT 93–96
[2019-05-08] MEDS: levoFLOXacin 250 MG Tablet PO (06:32)
[2019-05-08 06:36] LABS: Bedside Glucose 103 mg/dL (70-110)
[2019-05-08] MEDS: Ipratropium/Albuterol Sulfate 3 ML AMPUL.NEB INHALATION ×3 (07:01→14:47)
[2019-05-08 07:23] LABS: Absolute Lymphocyte Count 0.65 X10^3/uL (0.83-4.51); Absolute Neutrophil Count 4.6 X10^3/uL (2.0-7.7); Basophil# 0.01 X10^3/uL; Basophil% 0.2 % (0-1); Eosinophil# 0.02 X10^3/uL; Eosinophils% 0.3 % (0-5); Hemoglobin 8.2 g/dL (13.0-16.5); Lymphocyte # 0.65 X10^3/ul (4.0); Lymphocyte % 11.2 % (19-41); Mean Corp Hgb Conc 31.5 g/dL (32-36); Mean Corpuscular Hgb 28.9 pg (27.0-32.0); Mean Corpuscular Volume 91.5 fL (80-94); Mean Platelet Vol. 8.8 fl (6.2-12.0); Monocyte% 8.6 % (0-10); NRBC Flagged by Analyzer 0 % (0-5); Neutrophil # 4.58 X10^3/uL (2.7-7.7); Neutrophil % 79.2 % (47-70); Platelet Count 159 K/mm3 (150-450); RBC Distribution Width CV 18.5 % (11.6-14.6); RBC Distribution Width SD 59.2 fl (35.1-43.9); Red Blood Count 2.84 M/mm3 (4.6-6.2); White Blood Count 5.8 K/mm3 (4.4-11.0)
[2019-05-08 07:46] LABS: Anion Gap 6 (5-15); BUN 25 mg/dL (7-18); BUN/Creat Ratio 17.6 RATIO (10-20); Calcium,Total 8.2 mg/dL (8.5-10.1); Chloride 100 mmol/L (98-107); Creatinine, Serum 1.42 mg/dL (0.70-1.30); EST Glomerular Filtration Rate 50 mL/min (>60); Est Glom Filt Rate - Afr Amer 61 mL/min (>60); Estimated Creatinine Clearance 39.27 ml/min; Glucose 103 mg/dL (74-106); Sodium Level 136 mmol/L (136-145)
[2019-05-08] MEDS: Sucralfate 1 GM Tablet PO ×4 (07:48→20:41)
--- NOTE | 2019-05-08 08:38 | PCM.PN.SRG ---
Patient Problems: Active and Suspected Problems (Last Reviewed 05/05/19 @ 11:30 by LUCI Vee) Upper GI bleed (Acute) Acute on chronic blood loss anemia (Acute) Subjective: No bloody bowel movements overnight, no nausea or vomiting. - Physical Exam Vitals/I&O's: Vital Signs Temp Pulse Resp BP Pulse Ox 98.1 F 85 16 111/50 L 93 05/08/19 07:40 05/08/19 07:40 05/08/19 07:40 05/08/19 07:40 05/08/19 07:40 Oxygen Flow Rate (L/min) 2 Oxygen Delivery Method Room Air Weight: 210 lb 1.608 oz Body Mass Index (BMI) 30.0 Intake and Output for Last 24 Hours 05/06/19 05/07/19 05/08/19 23:59 23:59 23:59 Intake Total 1070 / 1070 1818.33 / 1818.33 240 / 240 Output Total 750 / 750 1750 / 1750 Balance 320 / 320 68.33 / 68.33 240 / 240 General: Alert Lungs: Normal air movement Cardiovascular: Regular rate, Regular Rhythm Abdomen: Soft, Non Tender, Non-Distended Laboratory Results 05/07/19 11:15: POC Glucose 135 H 05/07/19 16:40: POC Glucose 134 H 05/07/19 21:10: POC Glucose 151 H 05/08/19 06:29: POC Glucose 103 05/08/19 07:10: WBC 5.8, RBC 2.84 L, Hgb 8.2 L, Hct 26.0 L, MCV 91.5, MCH 28.9, MCHC 31.5 L, RDW Std Deviation 59.2 H, RDW Coeff of James 18.5 H, Plt Count 159, MPV 8.8, Immature Gran % (Auto) 0.500, Neut % (Auto) 79.2 H, Lymph % (Auto) 11.2 L, [place] % (Auto) 8.6, Eos % (Auto) 0.3, Baso % (Auto) 0.2, Absolute Neuts (auto) 4.6, Absolute Lymphs (auto) 0.65 L, Nucleated RBC % 0 05/08/19 07:10: Sodium 136, Potassium 4.0, Chloride 100, Carbon Dioxide 30.0, Anion Gap 6, BUN 25 H, Creatinine 1.42 H, Estim Creat Clear Calc 39.27, Est GFR (MDRD) Af Amer 61, Est GFR (MDRD) Non-Af 50 L, BUN/Creatinine Ratio 17.6, Glucose 103, Calcium 8.2 L Current Medications Acetaminophen (Tylenol) 650 mg PO Q6H PRN PRN PRN Reason: Pain Score 1-3/Temp > 100.7 F Albuterol Sulfate (Ventolin Aerosols) 2.5 mg INHALATION Q2H PRN PRN PRN Reason: SOB/Wheezing Albuterol/Ipratropium (Duoneb) 3 ml INHALATION Q4HWA.RT [facility] Last Admin: 05/08/19 07:01 Dose: 3 ml Documented by: Amlodipine Besylate (Norvasc) 10 mg PO DAILY [facility] Last Admin: 05/07/19 09:29 Dose: 10 mg Documented by: Ferrous Gluconate (Ferrous Gluconate) 324 mg PO DAILYCM [facility] Last Admin: 05/07/19 09:26 Dose: 324 mg Documented by: Furosemide (Lasix) 40 mg IV DAILY [facility] Last Admin: 05/07/19 12:08 Dose: 40 mg Documented by: Glucagon () 1 mg IM .X1 PRN PRN Reason: Hypoglycemia Guaifenesin (Robitussin) 20 ml PO Q4H PRN PRN PRN Reason: COUGH Pantoprazole Sodium 40 mg/ (Sodium Chloride) 110 mls @ 330 mls/hr IV Q12 [facility] Last Infusion: 05/07/19 21:35 Dose: Infused Documented by: Sodium Chloride () 500 mls @ 15 mls/hr IV PRN PRN PRN Reason: Blood Transfusion Dextrose (Dextrose 10%-Water) 250 mls @ 999 mls/hr IV .Q16M PRN; Protocol PRN Reason: HYPOGLYCEMIA Iron Sucrose 200 mg/ Sodium (Chloride) 110 mls @ 220 mls/hr IV DAILY [facility] Stop: 05/08/19 10:29 Last Infusion: 05/07/19 19:00 Dose: Infused Documented by: Insulin Glargine (Lantus ([facility]k)) 20 units SC BREAKFAST [facility] Last Admin: 05/07/19 09:27 Dose: Not Given Documented by: Insulin Human Lispro (Humalog Kwikpen ([facility])) 0 unit SC ACHS [facility]; Protocol Last Admin: 05/08/19 06:41 Dose: Not Given Documented by: Ipratropium [place] (Atrovent Nasal [place] (G)) 2 spray NASAL BID [facility] Last Admin: 05/07/19 21:14 Dose: 2 spray Documented by: Levofloxacin (Levaquin Tablet) 250 mg PO DAILY@0600 [facility] Stop: 05/09/19 06:01 Last Admin: 05/08/19 06:32 Dose: 250 mg Documented by: Melatonin (Melatonin) 3 mg PO QHS [facility] Last Admin: 05/07/19 21:14 Dose: 3 mg Documented by: Metoprolol Succinate (Toprol Xl (Beta Ayala)) 50 mg PO DAILY [facility] Last Admin: 05/07/19 09:28 Dose: 50 mg Documented by: Morphine Sulfate () 2 mg IV Q3H PRN PRN PRN Reason: Pain Score 6-10/10 Nitroglycerin (Nitrostat) 0.4 mg SUBLINGUAL Q5M PRN PRN Reason: CARDIAC/CHEST PAIN Nutritional Formula (Lactose Free) (Ensure Enlive) 120 ml PO 4X/DAY [facility] Last Admin: 05/07/19 21:23 Dose: Not Given Documented by: Oxycodone HCl (Oxyir) 5 mg PO Q4H PRN PRN PRN Reason: Pain Score 4-5/10 Prochlorperazine Edisylate (Compazine Iv) 5 mg IV Q4H PRN PRN PRN Reason: Breakthrough Nausea/Vomiting Senna/Docusate Sodium (Senokot-S, Estefany-Colace) 2 tablet PO BID PRN PRN PRN Reason: Constipation Sodium Chloride () 10 - 40 ml IV UD PRN PRN Reason: SALINE FLUSH Last Admin: 05/07/19 21:15 Dose: 10 ml Documented by: Sucralfate (Carafate) 1 gm PO 1HR_ACHS [facility] Last Admin: 05/08/19 07:48 Dose: 1 gm Documented by: Medical Necessity - Tobacco Use Smoking Status: Never smoker Assessment/Plan All Active Problems (Last Reviewed 05/05/19 @ 11:30 by Randi Araiza NP-C) Upper GI bleed (Acute) Acute on chronic blood loss anemia (Acute) Sepsis (Acute) Community acquired pneumonia (Acute) Hypoxemia (Acute) Skin cancer (Resolved) 84 yo M with bleeding large duodenal ulcer 1. Hb stable. Tolerating full liquids. Ok to advance diet and discharge from my standpoint. Recommend DC with BID PPI and 4x per day carafate. Follow up in my office in 2 weeks. Chinedu Jackman MD
[2019-05-08] MEDS: 0.9% Saline Lock 10 ML Syringe IV ×4 (09:38→21:04)
[2019-05-08] MEDS: Ferrous Gluconate 324 MG Tablet PO (09:39)
[2019-05-08] MEDS: amLODIPine 10 MG Tablet PO (09:40)
[2019-05-08] MEDS: Metoprolol(XL)Succ 50 MG Tablet PO (09:40)
[2019-05-08] MEDS: Furosemide 40 MG/4 ML Vial IV (09:41)
--- NOTE | 2019-05-08 09:54 | CASEMGMT ---
Physician said patient agreed to go to TCU, but he is going to call his . SW called Veronica in TCU and left a voice mail with referral. Tiarra NOYOLA MSW
--- NOTE | 2019-05-08 10:05 | CASEMGMT ---
Veronica can take patient in TCU and she will start the process to obtain authorization. Tiarra NOYOLA MSW
[2019-05-08] MEDS: Ipratropium Bromide 0.06% NASAL SPRAY 2 SPRAY NASAL (10:55)
[2019-05-08] MEDS: Insulin Lispro 100 UNIT/ML INSULN.PEN SC ×2 (11:09→16:19)
[2019-05-08 11:25] LABS: Bedside Glucose 161 mg/dL (70-110)
--- NOTE | 2019-05-08 11:55 | CASEMGMT ---
RN CM [employer]PER[employer] CM to room to meet with patient for initial transition planning/care coordination assessment. RN JES introduced self and role at [facility]. Pt voices understanding and consents to assessment at this time. Pt resting in bed in no distress at this time. Pt is A/O at this time and answers all questions appropriately. Care providers, pharmacy, and demographics verified/updated at this time. PCP: [facility] Specialists: Balwinder--pulmonology Preferred Pharmacy: [facility] Retail Insurance: [employer] Prescription Benefit: Yes Living Will/HPOA: does not have LW or HCPOA . Interested in more information but would like to wait until his is present to talk with her. Pt instructed to let staff know when his is present and when they are ready to talk with SW. Tiarra SMALL, made aware. LNOK: and son, Mich Living Arrangements: Lives with his in 2-story home w/basement. Pt states has been difficult to get around/ambulate around his home recently and that his has been needing to assist him more. Transportation: Pt and DME: has the following DME: [facility] Pt states no need for further DME at this time. HHC/SNF: No hx of SNF. Hx of [facility] HHC. Pt wishes to go to TCU @ discharge, stating, I really can't handle going home. I feel so weak and that I need to go somewhere to get stronger. Tiarra SMALL, aware. CM to follow for any further discharge planning/needs. Pt voices no further concerns/needs at this time. Advised pt to ask for CM if any further questions/concerns/needs arise. Voices understanding. PLAN: TCU pending precert. Cuong WATERS RN CM
[2019-05-08 12:06] LABS: Pathologist Review Reviewed
--- NOTE | 2019-05-08 14:38 | CASEMGMT ---
LEXY ANDRE NOTE: Per GEOVANNY Mayen, insurance has denied for pt to go to SNF. Pt made aware. Pt states would like to have C w/[facility]. Call placed to Priti @ [facility]. She states pt is currently active with them for SN and PT/OT. Order for resumption of [facility] services placed. Pt agreeable to LEXY ANDRE calling his to update her on discharge plan. Call placed to pt's , Namita Smith. She was notified that insurance denied pt going to SNF. She voices she is very upset and frustrated that insurance has denied for pt to go to somewhere and inquiring if this decision can be appealed. She states, Michael needs more help at home. He is not getting around very well and he needs help. Informed Namita Smith that LEXY ANDRE would have Tiarra SMALL, call her to discuss this with her. Namita Alcantare voices appreciation. GEOVANNY Mayen, made aware. Cuong WATERS RN, CM
--- NOTE | 2019-05-08 15:21 | CASEMGMT ---
Addendum entered by Tiarra Nuñez 05/08/19 15:41: SW called patient's and let her know that the physician is doing an appeal on the denial. She thanked SW for letting her know. Tiarra PETER Original Note: Patient was denied to go to TCU. Patient's was upset and wants to know if it can be appealed. SW called [facility] and they said physician will need to call the number to do peer to peer. SW passed along this information to the physician. SW will talk with patient's . Tiarra PETER
[2019-05-08 16:35] LABS: Bedside Glucose 157 mg/dL (70-110)
--- NOTE | 2019-05-08 18:15 | NURSING ---
Reviewed and agreed on all charting with Lashanda Maynard RN
--- NOTE | 2019-05-08 18:32 | PCM.PROGNOTE ---
Patient Problems: Active and Suspected Problems (Last Reviewed 05/05/19 @ 11:30 by LUCI Vee) Upper GI bleed (Acute) Acute on chronic blood loss anemia (Acute) Subjective: Patient was seen and examined today, he appeared fatigued, I talked him briefly about going to a [place] [facility] [place] [id number] his insurance will not agree to pay for this at this time, I even did an appeal by phone this afternoon and again his insurance carrier denied coverage for him to go to a [place] [facility] [place] facility. Patient's labs will be rechecked tomorrow, his diet was advanced today. - Physical Exam Vitals/I&O's: Vital Signs Temp Pulse Resp BP Pulse Ox 98.1 F 87 16 104/49 L 96 05/08/19 17:44 05/08/19 17:44 05/08/19 17:44 05/08/19 17:44 05/08/19 17:44 Oxygen Flow Rate (L/min) 2 Oxygen Delivery Method Room Air Weight: 95.3 kg Body Mass Index (BMI) 30.0 Intake and Output for Last 24 Hours 05/06/19 05/07/19 05/08/19 23:59 23:59 23:59 Intake Total 1070 / 1070 1818.33 / 1818.33 1720 / 1720 Output Total 750 / 750 1750 / 1750 875 / 875 Balance 320 / 320 68.33 / 68.33 845 / 845 General: Alert, Oriented x3, Cooperative, No apparent distress, Well developed HEENT: Atraumatic, PERRLA, EOMI, Normocephalic Oral: Moist Mucosa Neck: Supple, Trachea Midline, Thyroid Normal Size and Texture Lungs: Clear to auscultation, Normal air movement, No rhonchi, No wheeze, No rales Cardiovascular: Regular rate, Regular Rhythm, Normal S1, Normal S2, No murmurs, PMI Normal, No rub noted, No Gallop Abdomen: Bowel Sounds Present, Soft, Non Tender, Non-Distended Extremities: No clubbing, No cyanosis, No edema, Capillary Refill Less than 3 Seconds Skin: No rashes, No breakdown Musculoskeletal: No Tenderness to Palpation of Joints or Extremities Neurological: Cranial nerves II-XII grossly intact, Neuro grossly intact, Sensory exam intact to light touch and pain Psych/Mental Status: Normal Affect, Appropriate, Alert and oriented to time, place, person, mood and affect Laboratory Results 05/06/19 13:05: Diff Path Review Reviewed 05/07/19 21:10: POC Glucose 151 H 05/08/19 06:29: POC Glucose 103 05/08/19 07:10: WBC 5.8, RBC 2.84 L, Hgb 8.2 L, Hct 26.0 L, MCV 91.5, MCH 28.9, MCHC 31.5 L, RDW Std Deviation 59.2 H, RDW Coeff of James 18.5 H, Plt Count 159, MPV 8.8, Immature Gran % (Auto) 0.500, Neut % (Auto) 79.2 H, Lymph % (Auto) 11.2 L, [place] % (Auto) 8.6, Eos % (Auto) 0.3, Baso % (Auto) 0.2, Absolute Neuts (auto) 4.6, Absolute Lymphs (auto) 0.65 L, Nucleated RBC % 0 05/08/19 07:10: Sodium 136, Potassium 4.0, Chloride 100, Carbon Dioxide 30.0, Anion Gap 6, BUN 25 H, Creatinine 1.42 H, Estim Creat Clear Calc 39.27, Est GFR (MDRD) Af Amer 61, Est GFR (MDRD) Non-Af 50 L, BUN/Creatinine Ratio 17.6, Glucose 103, Calcium 8.2 L 05/08/19 11:02: POC Glucose 161 H 05/08/19 16:17: POC Glucose 157 H Current Medications Acetaminophen (Tylenol) 650 mg PO Q6H PRN PRN PRN Reason: Pain Score 1-3/Temp > 100.7 F Albuterol Sulfate (Ventolin Aerosols) 2.5 mg INHALATION Q2H PRN PRN PRN Reason: SOB/Wheezing Albuterol/Ipratropium (Duoneb) 3 ml INHALATION Q4HWA.RT [facility] Last Admin: 05/08/19 14:47 Dose: 3 ml Documented by: Amlodipine Besylate (Norvasc) 10 mg PO DAILY [facility] Last Admin: 05/08/19 09:40 Dose: 10 mg Documented by: Ferrous [facility]con[facility] ([facility]) [facility] Last Admin: 05/08/19 09:39 Dose: 324 mg Documented by: Furosemide (Lasix) 40 mg IV DAILY [facility] Last Admin: 05/08/19 09:41 Dose: 40 mg Documented by: Glucagon () 1 mg IM .X1 PRN PRN Reason: Hypoglycemia Guaifenesin (Robitussin) 20 ml PO Q4H PRN PRN PRN Reason: COUGH Pantoprazole Sodium 40 mg/ (Sodium Chloride) 110 mls @ 330 mls/hr IV Q12 [facility] Last Infusion: 05/08/19 09:57 Dose: Infused Documented by: Sodium Chloride () 500 mls @ 15 mls/hr IV PRN PRN PRN Reason: Blood Transfusion Dextrose (Dextrose 10%-Water) 250 mls @ 999 mls/hr IV .Q16M PRN; Protocol PRN Reason: HYPOGLYCEMIA Insulin Glargine (Lantus ([facility])) 20 units SC BREAKFAST [facility] Last Admin: 05/08/19 08:57 Dose: Not Given Documented by: Insulin Human Lispro (Humalog Kwikpen ([facility])) 0 unit SC ACHS [facility]; Protocol Last Admin: 05/08/19 16:19 Dose: 2 units Documented by: Ipratropium [place] (Atrovent Nasal [place] (G)) 2 spray NASAL BID [facility] Last Admin: 05/08/19 10:55 Dose: 2 spray Documented by: Levofloxacin (Levaquin Tablet) 250 mg PO DAILY@0600 [facility] Stop: 05/09/19 06:01 Last Admin: 05/08/19 06:32 Dose: 250 mg Documented by: Melatonin (Melatonin) 3 mg PO QHS [facility] Last Admin: 05/07/19 21:14 Dose: 3 mg Documented by: Metoprolol Succinate (Toprol Xl (Beta Ayala)) 50 mg PO DAILY [facility] Last Admin: 05/08/19 09:40 Dose: 50 mg Documented by: Morphine Sulfate () 2 mg IV Q3H PRN PRN PRN Reason: Pain Score 6-10/10 Nitroglycerin (Nitrostat) 0.4 mg SUBLINGUAL Q5M PRN PRN Reason: CARDIAC/CHEST PAIN Nutritional Formula (Lactose Free) (Ensure Enlive) 120 ml PO 4X/DAY [facility] Last Admin: 05/08/19 17:43 Dose: Not Given Documented by: Oxycodone HCl (Oxyir) 5 mg PO Q4H PRN PRN PRN Reason: Pain Score 4-5/10 Prochlorperazine Edisylate (Compazine Iv) 5 mg IV Q4H PRN PRN PRN Reason: Breakthrough Nausea/Vomiting Senna/Docusate Sodium (Senokot-S, Estefany-Colace) 2 tablet PO BID PRN PRN PRN Reason: Constipation Sodium Chloride () 10 - 40 ml IV UD PRN PRN Reason: SALINE FLUSH Last Admin: 05/08/19 10:57 Dose: 10 ml Documented by: Sucralfate (Carafate) 1 gm PO 1HR_ACHS [facility] Last Admin: 05/08/19 16:19 Dose: 1 gm Documented by: Medical Necessity - Tobacco Use Smoking Status: Never smoker Assessment/Plan All Active Problems (Last Reviewed 05/05/19 @ 11:30 by Randi Araiza NP-C) Upper GI bleed (Acute) Acute on chronic blood loss anemia (Acute) Sepsis (Acute) Community acquired pneumonia (Acute) Hypoxemia (Acute) Skin cancer (Resolved) #1 acute on chronic blood loss anemia secondary to upper GI bleed from duodenal ulcer requiring blood transfusion-patient's CBC will be checked again tomorrow #2 duodenal ulcer-not bleeding at this time #3 acute debility-PT and OT are seeing patient, he has been refused approval from his insurance carrier for inpatient skilled services. Patient will need to return home and have outpatient physical therapy. #4 chronic kidney disease stage III secondary to type 2 diabetes #5 essential hypertension #6 type 2 diabetes #7 left basilar infiltrate-not felt to be acute pneumonia, etiology unclear Patient does not have acute kidney injury and he does not have acute community-acquired pneumonia Code Visit Inpatient E&M: 03085 Subs Hosp L2
[2019-05-08] MEDS: MELATONIN 3 MG TABLET PO (20:42)
[2019-05-08 20:51] LABS: Bedside Glucose 145 mg/dL (70-110)
[2019-05-09] VITALS (12 sets, daily range): BP systolic 119–140; BP diastolic 57–84; PULSE 72–89; RESP 14–20; TEMP 36.5–36.9; O2SAT 93–96
[2019-05-09] MEDS: Sucralfate 1 GM Tablet PO ×2 (06:02→11:27)
[2019-05-09] MEDS: levoFLOXacin 250 MG Tablet PO (06:02)
[2019-05-09] MEDS: 0.9% Saline Lock 10 ML Syringe IV ×3 (06:02→13:35)
[2019-05-09 06:20] LABS: Absolute Lymphocyte Count 0.69 X10^3/uL (0.83-4.51); Absolute Neutrophil Count 3.7 X10^3/uL (2.0-7.7); Eosinophil# 0.02 X10^3/uL; Eosinophils% 0.4 % (0-5); Hemoglobin 7.8 g/dL (13.0-16.5); Lymphocyte # 0.69 X10^3/ul (4.0); Lymphocyte % 13.9 % (19-41); Mean Corp Hgb Conc 31.2 g/dL (32-36); Mean Corpuscular Hgb 29.4 pg (27.0-32.0); Mean Corpuscular Volume 94.3 fL (80-94); Mean Platelet Vol. 9.7 fl (6.2-12.0); Monocyte% 10.1 % (0-10); NRBC Flagged by Analyzer 0 % (0-5); Neutrophil # 3.73 X10^3/uL (2.7-7.7); Neutrophil % 75.4 % (47-70); Platelet Count 156 K/mm3 (150-450); RBC Distribution Width CV 19.3 % (11.6-14.6); RBC Distribution Width SD 61.5 fl (35.1-43.9); Red Blood Count 2.65 M/mm3 (4.6-6.2)
[2019-05-09 06:49] LABS: Anion Gap 5 (5-15); BUN 22 mg/dL (7-18); BUN/Creat Ratio 15.7 RATIO (10-20); Calcium,Total 7.9 mg/dL (8.5-10.1); Chloride 100 mmol/L (98-107); EST Glomerular Filtration Rate 51 mL/min (>60); Est Glom Filt Rate - Afr Amer 62 mL/min (>60); Estimated Creatinine Clearance 39.83 ml/min; Glucose 115 mg/dL (74-106); Potassium 3.8 mmol/L (3.5-5.1); Sodium Level 135 mmol/L (136-145)
[2019-05-09 07:05] LABS: Bedside Glucose 123 mg/dL (70-110)
[2019-05-09] MEDS: amLODIPine 10 MG Tablet PO (09:45)
[2019-05-09] MEDS: Ferrous Gluconate 324 MG Tablet PO (09:45)
[2019-05-09] MEDS: Metoprolol(XL)Succ 50 MG Tablet PO (09:45)
[2019-05-09 11:55] LABS: Bedside Glucose 134 mg/dL (70-110)
--- NOTE | 2019-05-09 13:44 | DCINST_ITS ---
- Discharge Diagnoses Current Active Problems: Current Active and Chronic Problems (Last Reviewed 05/05/19 @ 11:30 by LUCI Vee) Upper GI bleed (Acute) Acute on chronic blood loss anemia (Acute) You will use the following diet at home:: Calorie/Carbohydrate Controlled (specify 1200, 1400, etc) - 1800 blanca ADA Your food should be the consistency of: Regular Your liquids should be the consistency of: Regular/Thin Discharge Activity: Return to Normal Activity Weight Bearing Status: Full weight bearing Allergies/Adverse Reactions: Allergies No Known Allergies Allergy (Verified 05/06/19 12:48) Medications to take at Discharge Amlodipine [Norvasc] 10 mg PO DAILY 06/16/18 Ipratropium [place] 0.06% [ATROVENT NASAL SPRAY] 2 spray NASAL BID 06/16/18 Albuterol Inhaler [Ventolin Hfa] 1 - 2 puff INHALATION Q4H PRN PRN #1 inhaler 06/19/18 Ferrous Gluconate 324 mg PO DAILY #60 tab 04/20/19 Ipratropium/Albuterol Sulfate [Duoneb] 3 ml INHALATION Q4HWA.RT #30 ampul.neb 04/20/19 Metformin HCl 500 mg PO BIDCM #0 04/20/19 Metoprolol(XL)Succ [Toprol Xl (Beta Ayala)] 50 mg PO DAILY #0 04/20/19 Potassium Chloride [K-Dur] 20 meq PO DAILY PRN PRN #30 tab 04/20/19 Aspirin [Aspirin, Baby] 81 mg PO DAILY@0800 05/06/19 Furosemide [Lasix] 40 mg PO DAILY PRN PRN 05/06/19 Lisinopril [Zestril] 10 mg PO DAILY 05/06/19 Pantoprazole Sodium 40 mg PO BID #60 tablet. 05/09/19 Pantoprazole Sodium [Protonix] 40 mg PO BID #60 tab 05/09/19 Sucralfate [Carafate] 1 gm PO 1HR_ACHS #120 tab 05/09/19 Sucralfate [Carafate] 1 gm PO 4X/DAY #120 tab 05/09/19 The following prescriptions were given: Sucralfate [Carafate] 1 gm PO 4X/DAY #120 tab Transmission Status: Received by [facility] Sucralfate [Carafate] 1 gm PO 1HR_ACHS #120 tab Transmission Status: Pending to [facility] Pantoprazole Sodium 40 mg PO BID #60 tablet.dr Transmission Status: Received by [facility] Pantoprazole Sodium [Protonix] 40 mg PO BID #60 tab Transmission Status: Pending to [facility] Primary Care Physician: Yair Hart MD [Primary Care Provider] - Please follow up with your Primary Care Physician in: in 3 weeks Test Results: Test results from this visit will be discussed in further detail at your follow- up appointment, if applicable. Please Follow Up With: Chinedu Jackman MD When: in 2 weeks
--- NOTE | 2019-05-09 13:58 | CASEMGMT ---
Patient was denied to go to TCU by insurance. Physician did appeal and insurance did not overturn their decision. SW called and left a voice mail for Priti with [facility] letting her know patient will be discharged today. Plan: d/c home with resumption of [facility]. Tiarra PETER
--- NOTE | 2019-05-09 15:21 | CASEMGMT ---
Patient's did not want home health. She wanted to try outpatient therapy. GEOVANNY obtained a prescription from physician and gave it to patient's . SW gave her the number to [facility] [facility] per her request. GEOVANNY called Priti and canceled the referral for home health. Tiarra NOYOLA MSW
--- NOTE | 2019-05-11 16:03 | CASEMGMT ---
Addendum entered by Keiko Huggins 05/12/19 13:04: Pt called this RN CM back for f/u call and pt states 'I seem to be improving.' Pt states no questions regarding his discharge instructions or medications at this time. Pt states has f/u appt scheduled with Dr. Hart and pt aware to call Dr. Jackman's office to schedule f/u in 2 weeks. Pt does state some concerns with having a bowel movement at this time and this RN CM advised pt to call Augustina's office at this time in regards to same, voices understanding. Pt states no suggestions for WC at this time. Pt voices no further questions/concerns/needs at this time. Meghan PUGH CM Original Note: LEXY ANDRE F/U Phone Call LACE: 12 Strata: 4 Discharge date: 05/09/19 Call date: 05/11/19 Call time: 1604 Attempted to reach pt without success at this time, message left for pt to call this RN JES back if/when able. Meghan PUGH CM Admitting dx: Upper GI bleed, severe anemia
--- NOTE | 2019-05-11 16:54 | DS.PCM_ITS ---
Discharge Date and Diagnosis Date of Admission: 05/06/19 Date of Discharge: 05/09/19 - Primary Discharge Diagnosis #1 acute on chronic blood loss anemia secondary to upper GI bleed from duodenal ulcer requiring blood transfusion #2 duodenal ulcer #3 acute debility #4 chronic kidney disease stage III secondary to type 2 diabetes #5 essential hypertension #6 type 2 diabetes #7 left basilar infiltrate-not felt to be acute pneumonia, etiology unclear Code Visit - Secondary Discharge Diagnosis Chronic Problems (Last Reviewed 05/05/19 @ 11:30 by LUCI Vee) Acute respiratory failure with hypoxia (Chronic) Type 2 diabetes mellitus (Chronic) HTN (hypertension) (Chronic) Hospital Course and Treatment Operations: None Procedures: EGD Summary of Care Provided: The patient is a 84 year old M was seen in the emergency room at [facility] with a chief complaint of weakness and shortness of breath. Patient complained he had diarrhea that appeared to be black approximately 1 week ago. Patient also complained that he had a black formed stool the day he was seen in the emergency room. Work-up in the emergency room included a CBC which was remarkable for a white count of 14,000, hemoglobin was low at 5.4 and his chemistry panel showed a glucose of 266, BUN of 48, and creatinine of 1.75. Chest x-ray showed an improved left basilar infiltrate. Patient was seen in consultation by general surgery, he was admitted to PCU and underwent an EGD which showed a duodenal ulcer but there was no evidence of any active bleeding. Patient was seen by PT and OT, initially it was thought that the patient could benefit from inpatient skilled services but his insurance carrier refused to pay for inpatient skilled services. Patient was given a total of 3 units of packed red blood cells. Last unit was given due to concerns of generalized weakness and concerned that the patient may need to be readmitted for further services. On 05/09/2019, patient was seen and examined: On examination he appeared in good health and spirits. Vital signs as documented. Skin warm and dry and without overt rashes. Neck without JVD. Lungs clear. Heart exam notable for regular rhythm, normal sounds and absence of murmurs, rubs or gallops. Abdomen unremarkable and without evidence of organomegaly, masses, or abdominal aortic enlargement. Extremities nonedematous. Neuro: Cranial nerves II through XII are grossly intact, no focal motor deficits were noted, sensation to light touch and pinprick intact. Psych: Patient is alert and oriented x3, he does not appear anxious or depressed On 05/09/2019, patient was seen and examined and felt to be in stable condition for discharge home - Physical Exam Vitals/I&O's: Vital Signs Temp Pulse Resp BP Pulse Ox 97.9 F 78 14 132/57 H 94 05/09/19 13:21 05/09/19 13:21 05/09/19 13:21 05/09/19 13:21 05/09/19 13:21 Oxygen Flow Rate (L/min) 2 Oxygen Delivery Method Room Air Weight: 95.3 kg Body Mass Index (BMI) 30.0 Intake and Output for Last 24 Hours 05/09/19 05/10/19 05/11/19 23:59 23:59 23:59 Intake Total 910 / 910 Balance 910 / 910 Microbiology Past 72 Hours 05/06/19 14:15 Blood Culture (Wb) - Anticubital Right Blood Culture - Final No growth in 5 days. Discharge Activity: Return to Normal Activity Weight Bearing Status: Full weight bearing Home Medications: Medications to take at Discharge Amlodipine [Norvasc] 10 mg PO DAILY 06/16/18 Ipratropium [place] 0.06% [ATROVENT NASAL SPRAY] 2 spray NASAL BID 06/16/18 Albuterol Inhaler [Ventolin Hfa] 1 - 2 puff INHALATION Q4H PRN PRN #1 inhaler 06/19/18 Ferrous Gluconate 324 mg PO DAILY #60 tab 04/20/19 Ipratropium/Albuterol Sulfate [Duoneb] 3 ml INHALATION Q4HWA.RT #30 ampul.neb 04/20/19 Metformin HCl 500 mg PO BIDCM #0 04/20/19 Metoprolol(XL)Succ [Toprol Xl (Beta Ayala)] 50 mg PO DAILY #0 04/20/19 Potassium Chloride [K-Dur] 20 meq PO DAILY PRN PRN #30 tab 04/20/19 Aspirin [Aspirin, Baby] 81 mg PO DAILY@0800 05/06/19 Furosemide [Lasix] 40 mg PO DAILY PRN PRN 05/06/19 Lisinopril [Zestril] 10 mg PO DAILY 05/06/19 Pantoprazole Sodium 40 mg PO BID #60 tablet. 05/09/19 Pantoprazole Sodium [Protonix] 40 mg PO BID #60 tab 05/09/19 Sucralfate [Carafate] 1 gm PO 1HR_ACHS #120 tab 05/09/19 Sucralfate [Carafate] 1 gm PO 4X/DAY #120 tab 05/09/19 Following Prescrptions Were Given to Patient: Sucralfate [Carafate] 1 gm PO 4X/DAY #120 tab Transmission Status: Received by [facility] Sucralfate [Carafate] 1 gm PO 1HR_ACHS #120 tab Transmission Status: Received by [facility] Pantoprazole Sodium 40 mg PO BID #60 tablet.dr Transmission Status: Received by [facility] Pantoprazole Sodium [Protonix] 40 mg PO BID #60 tab Transmission Status: Received by [facility] Primary Care Physician: Yair Hart MD [Primary Care Provider] - Please follow up with your Primary Care Physician in: in 3 weeks Please Follow Up With: Chinedu Jackman MD When: in 2 weeks Please Follow Up With: Yair Hart MD Disposition: Home with Home Health Minutes spent on discharge:: 33 Patient Condition:: Stable Medical Necessity - Tobacco Use Smoking Status: Never smoker Meaningful Use Info Meaningful Use Diagnoses (Choose all that apply): None applicable Code Visit Inpatient E&M: 75269 Disch Hosp
== END 2019-05-09 15:25 | disposition home or self-care (01) | DRG 811 ==
LOC: ED 13:09 → PCU 15:20
PROVIDERS: Hospitalist; Surgery; Admitting Provider Internal Medicine; Emergency Provider Emergency Medicine; Family Provider Internal Medicine; PCP Internal Medicine; Referring Provider Internal Medicine; Visit Provider Internal Medicine
PROC: 0DJ08ZZ Inspection of Upper Intestinal Tract, Via Natural or Artificial Opening Endoscopic (ICD-10-PCS; CPT 43235; principal; 2019-05-07 08:00)
DX: D62 Acute posthemorrhagic anemia (principal); K26.4 Chronic or unspecified duodenal ulcer with hemorrhage; I50.32 Chronic diastolic (congestive) heart failure; I13.0 Hypertensive heart and chronic kidney disease with heart failure and stage 1 through stage 4 chronic kidney disease, or unspecified chronic kidney disease; E11.22 Type 2 diabetes mellitus with diabetic chronic kidney disease; N18.3 Chronic kidney disease, stage 3 (moderate); I27.20 Pulmonary hypertension, unspecified; I10 Essential (primary) hypertension; R53.81 Other malaise; R91.8 Other nonspecific abnormal finding of lung field; Z79.84 Long term (current) use of oral hypoglycemic drugs
CPT/HCPCS: 36415; 71046; 80048; 80053; 82962; 83605; 83735; 84443; 85018; 85025; 85027; 85045; 85610; 85730; 86644; 86850; 86900; 86901; 86920; 86922; 87040; 88305; 88313; 88342; 93005; 94640; 97116; 97161; 97165; 97530; 97535; 97802; 99285; J1756; J7040; J7120; P9016; P9040; A4216; J1940; J3490

== ENCOUNTER → 2019-05-23 13:34 | Outpatient (CLI) | payer MEDICARE, SELFPAY ==
[2019-05-23 13:56] LABS: Hematocrit 31.5 % (40-54); Hemoglobin 9.7 g/dL (13.0-16.5)
== END ==
PROVIDERS: Surgery; Family Provider Internal Medicine; PCP Internal Medicine; Referring Provider Internal Medicine Critical Care Medicine; Visit Provider Internal Medicine Critical Care Medicine
DX: K92.2 Gastrointestinal hemorrhage, unspecified (principal)
CPT/HCPCS: 36415; 85014; 85018

== ENCOUNTER 2019-07-18 14:00 | Outpatient (RCR) | payer MEDICARE, SELFPAY ==
--- NOTE | 2019-05-25 13:48 | HP.PTEVAL ---
Patient's Visit Information JOAN HOWARD is a 84 year old M referred to Physical Therapy by Yaw Lyn DO with a diagnosis of Debility from respiratory failure. Date of Evaluation: 05/25/19 Physical Therapist: Félix Antonio DPT, OCS, CSCS - Visit Plan Frequency: 3x /Week Duration: 4-6 Weeks Plan: 3x/week for 4-6weeks for... 1. Walking,steps and functional conditioning. 2. LE and postural strength ex adn progress to HEP - Subjective Findings: Got pneumonia the day after Thanksgiving suddently. Unable to move or walk. went to ER adn given meds. In hospital origially 5 days then went back with swelling in legs and released 05/09. Has been at home doing very little since. No exercises.No pain, no numbness, no dizzyness, no falls, does nto feel unsteady but very weak and SOB if does any activity. REcently started going back up steps to bed in last 4 days. Used AD at first but has not needed for last 5 days to get around. Prior to sickness, enjoyed going out for breakfast with his buddies and walking dog and getting mail. now just sits on coush. Sleeping well. - Objective 76 resting HR today. Sits slouched in chair using chair to hold him up. Forward head and sacral sitting. Sit to stand without UE slow but I. Steps reciprocal but needs two rails to pull and 120 HR after one flight. Walks safe and I on firm flat surface but short 6 inch steps which is not all that unusual according to him. Wide GUTIERREZ. LE strength 4/5. LE sensation to gross light touch OK. reflexes 1/3 patella and achilles. coordination to reciprocal toe tap is better than expected. Tightness obvious in quads and HS. AROM WFL but coordination with inv and eversion in ankles is poor. 100 bpm HR after FGA. 28 breaths per mintue after steps. - Balance Scores Functional Gait Assessment Score: 22 % Disability: 26.6700 - Goals Goal 1:: Back to going to [place] with buds for breakfast. Goal Time Frame: 4-6 Weeks Goal 2:: Walk dog to mailbox with out SOB Goal Time Frame: 4-6 Weeks Goal 3:: Patient feel 80% back to normal mobility Goal Time Frame: 4-6 Weeks Goal 4:: Less than 50% disability LEFS Goal Time Frame: 4-6 Weeks - Rehabilitation Potential Physical Therapy Diagnosis: Debility adn SOB from pneumonia. Rehabilitation Potential: Good - Anticipated Interventions Patient/Client Instruction: Educate patient on: Condition, Plan of Care For the Purpose of:: To increase tolerance to activity/condition/position, To improve gait and locomotor functions Therapeutic Exercise to Include: Strength training, Endurance training, Balance training, Postural training, Flexibilty training, Gait and locomotor training For the Purpose of:: To decrease pain, To improve muscle performance and motor function, To increase tolerance to activity/condition/position, To improve gait and locomotor functions Thank you for the opportunity to evaluate your patient. For Medicare and Medicare HMO plans, please review the plan of care and approve it. It will need to be FAXED BACK to us at [phone] for Medicare purposes. For Medicare only, by signing this I certify the plan of care. Please let me know if there are questions or concerns regarding this plan of care. Physician Signature: Date:
--- NOTE | 2019-05-25 16:49 | HP.OTEVAL_ITS ---
Patient's Visit Information JOAN HOWARD is a 84 year old M, referred to Occupational Therapy by Yaw Lyn DO, with a diagnosis of debility. Date of Evaluation: 05/25/19 Occupational Therapist: Layne Mora - Subjective Subjective: Pt seen for initial occupational therapy evaluation for debility after episodes of sickness in hospital starting day after Thanksgiving for Pneumonia, blood transfusions. Pt lives w/ spouse in 2 story house, 2 steps to enter 1 hand rail. AMB no device. Pt has std cane or WW available but has not been using them. Pt states having difficult time getting around house just to walk to bathroom because of fatigue. Pt states no pain just very fatigued. Pt indep with BADLs/IADLs prior and now and enjoyed driving around town and meeting friends out to eat. Tub/shower grab bars, HHS. Low toilets. Pt states able to complete all BADLs/IADL independently but takes extra time because of fatigue. - Objective Objective/Observation: decreased activity tolerance. - ROM ROM Comments: BUSuki WFL - Strength Marine Consultant: R 65#, L 58# Lateral Pinch: R 12#, L 12# Strength Comments: Generalized MMT R UE 4-/5, L UE 4-/5 - Edema Other: NO edema - Sensation Sensation Comments: No numbness or tingling - Quick DASH-Disab of Arm,Shoulder& Hand Quick DASH Score: 4.5450 - Rehabilitation General Assessment: Pt seen for initial occupational therapy evaluation for anuja bonds. Pt demo decreased activity tolerance and states requires extra time to complete tasks around the house and is not really getting out of the house much at this time like his normal. Recommend OT evaluation only and PT to address activity tolerance and strengthening. Rehabilitation Potential: Good - Anticipated Interventions Other Interventions: Does not demonstrate a need for skilled OT interventions - Visit Plan General Plan: OT evaluation only. Pt to see physical therapy to address de creased activity tolerance and strengthening. Pt and spouse demo good understanding. Does not demonstrate a need for skilled OT services. TEXT: Thank you for the opportunity to evaluate your patient. For Medicare and Medicare HMO plans, please review the plan of care and approve it. It will need to be FAXED BACK to us at [phone] for Medicare purposes. Please let me know if there are questions or concerns regarding this plan of care. Physician Signature: Date:
--- NOTE | 2019-07-18 14:26 | HP.PTDCSUM ---
HP - PT D/C Summary It has been my pleasure to treat JOAN HOWARD under orders from Yair Hart MD, for the diagnosis of Debility from respiratory failure for a total of 12 visit(s). Discharge Date: 07/18/19 Please see the following information for a summary of their discharge status. - Subjective Subjective: He feels like he is improving. Getting better with walking safer and feels more like living. doing OK with home activities. Is ready to be done with PT. Will continue at home. HEP includes walking and squats at chair and running errands. Paulino nader active at home. - Overall Improvement % Improvement: 20 - Objective Objective/Function: Able to make small progressions today in strength and conditioning/endurance. Cont with more machines for strength in order to decrease WBing on painful toe and sore feet in general. Increased endurance to help restore lung capacity. Just fatigue noted t/o today. - Goals Goal 1:: Back to going to [place] with buds for breakfast. Goal Progress: Goal Met Goal 2:: Walk dog to mailbox with out SOB Goal Progress: Goal Met Goal 3:: Patient feel 80% back to normal mobility Goal Progress: Progressing Goal 4:: Less than 50% disability LEFS Goal Progress: Goal Met - Plan Plan: d/c - D/C Information If there are questions or concerns regarding this patient's physical therapy, please feel free to call me at [phone]. Thank you for the referral of this patient. Sincerely, Félix Antonio, DPT, OCS, CSCS
== END 2019-07-18 19:00 | disposition home or self-care (01) ==
LOC: PT 14:00
PROVIDERS: Family Provider Internal Medicine; PCP Internal Medicine; Visit Provider Internal Medicine
DX: J96.91 Respiratory failure, unspecified with hypoxia (principal); R53.81 Other malaise
CPT/HCPCS: 97110; 97162; 97164; 97165; 97166

== ENCOUNTER → 2019-10-18 | Outpatient (CLI) | payer MEDICARE, SELFPAY ==
[2019-10-18 09:00] VITALS: PULSE 102; PULSE 103; PULSE 105; PULSE 108; PULSE 84; PULSE 91; PULSE 93; O2SAT 87; O2SAT 90; O2SAT 91; O2SAT 94; O2SAT 96
--- NOTE | 2019-10-18 09:30 | CPS ---
pt arrived on room air. at 2 min sats were 87% on room air. placed pt on 2l nc. sats increased to 94%. explained that he needs to check o2 at home when he exerts himself.
--- NOTE | 2019-10-19 13:37 | PCM.PSN.6M ---
PSN 6 Minute Walk Test - 6 Minute Walk Test 6 Minute Walk Test: 6 Minute Walk Test PSN:6-Minute Walk Test Start: 10/18/19 09:21 Freq: Status: Active Protocol: [id number].6MINW Document 10/18/19 09:00 EW (Rec: 10/18/19 09:27 EW [id number]) 6 Minute Walk Test Date Performed 10/18/19 Time Performed 09:00 Height 5 ft 9 in Weight: 195 lb Weight in Pounds 195.[address]: Bandar Britt Assistive device used: None Pre-test Oxygen Delivery Method Room Air Pulse Ox (%) 94 Pulse Rate (60-100 beats/min) 93 Dyspnea Earlene Scale (0-10) 1 Exertion Earlene Scale (6-20) 6 1st minute Oxygen Delivery Method Room Air Pulse Ox (%) 91 Pulse Rate (60-100 beats/min) 102 H 2nd minute Oxygen Delivery Method Room Air Pulse Ox (%) 87 Pulse Rate (60-100 beats/min) 105 H Reported Symptoms Increased Work of Breathing 3rd minute Oxygen Flow Rate (L/min) (L/min) 2 Oxygen Delivery Method Nasal Cannula Pulse Ox (%) 94 Pulse Rate (60-100 beats/min) 103 H 4th minute Oxygen Flow Rate (L/min) (L/min) 2 Oxygen Delivery Method Nasal Cannula Pulse Ox (%) 90 Pulse Rate (60-100 beats/min) 91 5th minute Oxygen Flow Rate (L/min) (L/min) 2 Oxygen Delivery Method Nasal Cannula Pulse Ox (%) 90 Pulse Rate (60-100 beats/min) 103 H 6th minute Oxygen Flow Rate (L/min) (L/min) 2 Oxygen Delivery Method Nasal Cannula Pulse Ox (%) 90 Pulse Rate (60-100 beats/min) 108 H Post-test Oxygen Flow Rate (L/min) (L/min) 2 Oxygen Delivery Method Nasal Cannula Pulse Ox (%) 96 Pulse Rate (60-100 beats/min) 84 Dyspnea Earlene Scale (0-10) 3 Exertion Earlene Scale (6-20) 12 Full Laps Walked 8 Partial Lap, Number of Tiles Walked 20 Total Distance Walked (ft) 492 - Interpretation Interpretation: The patient ambulated 492 feet over the course of 6 minutes beginning on room air without assistive devices or breaks. Pretesting oxygen saturation was noted to be 94% on room air. With ambulation, the sadia oxygen saturation was 87%. 2 L of supplemental oxygen was applied and the patient was able to complete the remainder of the test while maintaining appropriate oxygen saturations. This testing indicates the presence of impaired walk distance and significant exertional oxygen desaturation. - Recommendations Recommendations: 2 L/min of supplemental oxygen should be utilized with exertion.
--- OUTSIDE RECORDS SUMMARY | 2020-03-03 06:54 | XMS RPT_ITS | CCD ---
:1935 External Reference #:[id number] Author Organization [facility] Care Team Providers Name Role Phone Aleshia Moseley Primary Care Provider Medications Medication Name Sig Date Prescriber Location Albuterol albuterol (PROVENTIL) 12-21-2019 [facility] 2.5 mg /3 mL (0.083 ([id number]) %) nebulizer solution Indications: Bronchitis with bronchospasm Use 3 mL via nebulizer every 6 hours as needed for Wheezing/Shortness of Breath. Use over 5-15minutes. 1 Package 11 12/21/2019 Active Comment: Use 3 mL via nebulizer every 6 hours as needed for Wheezing/Shortness of Breath. Use over 5-15minutes . albuterol HFA albuterol HFA 08-09-2019 [facility] (PROVENTIL HFA, (PROVENTIL HFA [facility] ([id number]) VENTOLIN HFA) 90 VENTOLIN HFA) 90 mcg/actuation inhaler mcg/actuation inhaler Indications: Bronchitis with bronchospasm Inhale 2 Puffs as instructed every 6 hours as needed (cough, wheezing). 1 Inhaler 5 08/09/2019 Active albuterol HFA (PROVENTIL HFA, 08-09-2019 [facility] ([id number]) VENTOLIN HFA) 90 mcg/actuation inhaler Indications: Bronchitis with bronchospasm Inhale 2 Puffs as instructed every 6 hours as needed (cough, wheezing). 1 Inhaler 5 08/09/2019 Active albuterol HFA (PROVENTIL HFA, 08-09-2019 [facility] ([id number]) VENTOLIN HFA) 90 mcg/actuation inhaler Indications: Bronchitis with bronchospasm Inhale 2 Puffs as instructed every 6 hours as needed (cough, wheezing). 1 Inhaler 5 08/09/2019 Active Comment: Inhale 2 Puffs as instructed every 6 hours as needed (cough, wheezing). amLODIPine amLODIPine (NORVASC) 10 08-09-2019 [facility] mg tablet Indications: (4419 5) Essential hypertension Take 1 tablet by mouth once daily. 90 tablet 3 08/09/2019 Active Comment: Take 1 tablet by mouth once daily. Colchicine colchicine 0.6 mg tablet [facility]-11-[facility]: Gout of big (44 195) toe Take 2 tabs by mouth, followed by 1 tab one hour later for gout flare. 3 tablet 2 07/11/2019 Active Comment: Take 2 tabs by mouth, follow ed by 1 tab one hour later for gout flare. Furosemide furosemide (LASIX) 40 mg 07-11-2019 [facility] tablet Indications: (35662) Bilateral lower extremity edema Take 1 tablet by mouth once daily as needed (edema, swelling). 30 tablet 5 07/11/2019 Active Comment: Take 1 tablet by mouth once daily as needed (edema, swelling). gabapentin gabapentin 12-21-2019 - [facility] (NEURONTIN) 300 mg 03-01-2020 [facility] ([id number]) capsule Indications: Pleuritic chest pain Take 1 capsule by mouth daily at bedtime for 30 days. For pain. 90 capsule 3 01/31/2020 03/01/2020 Active Comment: Take 1 capsule by mouth jose y at bedtime for 30 days. For pain. Hydrocortisone hydrocortisone 03-31-2019 - [facility] (HYTONE) 2.5 % lotion 01-31-2020 [facility] ([id number] ) Indications: Seborrheic dermatitis Apply 1-2 times/ day PRN; selectively to the rash or lesions on face, neck, ears, hairline areas. Avoid direct application to eyelids. 60 mL 1 01/31/2020 Active Comment: Apply 1-2 times/ day PRN; se lectively to the rash or lesions on face, neck, ears, hairline areas. Avoid direct application to eyelids. Ipratropium ipratropium bromide 08-09-2019 - [facility] (ATROVENT) 42 mcg 01-31-2020 [facility] ([id number]) (0.06 %) nasal spray Indications: Chronic rhinitis Use 2 Sprays in the nose twice daily as needed (nasal drainage). 15 mL 5 01/31/2020 Active Comment: Use 2 Sprays in the nose twi ce daily as needed (nasal drainage). Lisinopril lisinopril (ZESTRIL, 08-09-2019 Yair Moseley [facility] PRINIVIL) 10 mg tablet (4419 5) Indications: Essential hypertension Take 1 tablet by mouth once daily. 90 tablet 3 08/09/2019 Active Comment: Take 1 tablet by mouth once daily. metFORMIN metFORMIN (GLUCOPHAGE) [facility] 500 mg tablet (05221) Indications: Controlled type 2 diabetes mellitus without complication, without long-term current use of insulin (HCC) Take 2 tablets by mouth daily with breakfast. 180 tablet 3 08/09/2019 Active Comment: Take 2 tablets by mouth jose y with breakfast. Metoprolol metoprolol succinate ER 08-09-2019 [facility] (TOPROL XL) 50 mg 24 hr (441 95) tablet Indications: Essential hypertension Take 1 tablet by mouth once daily. 90 tablet 3 08/09/2019 Active Comment: Take 1 tablet by mouth once daily. Problems Active Problems Category Problem Name Status Date Location Anxiety disorders Mixed anxiety and Active 02-03-2005 - [facility] depressive disorder (26693) Cardiac dysrhythmias Atrial fibrillation Active 04-27-2019 - [facility] (12035) Diabetes mellitus without Type 2 diabetes Active [facility] complication mellitus (80186) Disorders of lipid Mixed hyperlipidemia Active 02-03-2005 - [facility] metabolism (54678) Gout and other crystal Podagra Active 06-03-2012 - [facility] arthropathies (81346) Hyperplasia of prostate Benign prostatic Active 04-10-2014 - [facility] hyperplasia (90066) Hypertension with Chronic kidney disease Active 05-05-2005 - [facility] complications and stage 3 due to (50847) secondary hypertension hypertension Osteoarthritis Degenerative joint Active 02-03-2005 - [facility] disease involving (95010) multiple joints Other ear and sense organ Hearing loss Active 02-26-2009 - [facility] disorders (39511) Other gastrointestinal Oropharyngeal dysphagia Active 020 - [facility] disorders (55736) Other lower respiratory Pleuritic pain Active 01-31-2020 - [facility] disease (93063) Other nutritional; Obese class I Active 03-31-2019 [facility] endocrine; and metabolic (44 195) disorders Other upper respiratory Chronic rhinitis Active 02-15-2012 - [facility] disease (02502) Pulmonary heart disease Pulmonary hypertension Active - [facility] due to lung disease (30325) and/or hypoxia Residual codes; Requires vaccination Active [facility] unclassified (27562) Respiratory failure; Chronic hypoxemic Active 08-09-2019 - [facility] insufficiency; arrest respiratory failure (37779) (adult) Unclassified Patient encounter Active [facility] status (45764) Past or Other Problems Category Problem Name Status Date Location Cancer; other and H/O: malignant Completed 11-06-2014 - [facility] unspecified primary neoplasm (76830) Chronic obstructive Bronchitis Completed 01-29-2018 - [facility] pulmonary disease and (62607 ) bronchiectasis Other inflammatory Seborrheic Completed 01-26-2012 [facility] condition of skin dermatitis (53030) Other lower respiratory Lung mass Completed 08-25-2018 - [facility] disease (61901) Other skin disorders Actinic keratosis Completed 08-05-2016 - [facility] (13003) Phlebitis; H/O: Deep vein Completed 06-02-2019 - [facility] thrombophlebitis and thrombosis (51468) thromboembolism Results Result Name Value Range Unit Interpretation Flag Date Location progress on 2020-01 PROGRESS HNO ID: [id number] Normal 01-31-2020 [facility] Author: Yair Moseley [place] ([id number]) Service: ? Author Type: Physician Type: Progress Notes Filed: 01/31/2020 12:55 PM Note Text: This note was created using mobicanvaster. Subjective Michael Howard is a 84 year old male. He had no new concerns. Dr. Tsai referred him for speech and swallow therapy. Dr. Britt was ordering portable oxygen for him. He had a concentrator at home, but did not use it regularly. His hypertension was controlled. His pleuritic chest pain resolved with gabapentin. Review of Systems Constitutional: Negative for appetite change, chills and fev er. HENT: Positive for trouble swallowing. Respiratory: Positive for cough, shortness of breath and whe ezing. Cardiovascular: Negative. Negative for chest pain. Gastrointestinal: Negative. Genitourinary: Negative. Musculoskeletal: Negative. Neurological: Negative. Psychiatric/Behavioral: Positive for dysphoric mood. Mild. 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 Use over 5-15minutes. - gabapentin (NEURONTIN) 300 mg capsule Take 1 capsule by mo uth daily at bedtime for 30 days. For pain. - lisinopril (ZESTRIL, PRINIVIL) 10 mg tablet Take 1 tablet by mouth once daily. - metoprolol succinate ER (TOPROL XL) 50 mg 24 hr tablet Suhail e 1 tablet by mouth once daily. - ipratropium bromide (ATROVENT) 42 mcg (0.06 %) nasal spray Use 2 Sprays in the nose twice daily as needed (nasal drainage). - albuterol HFA (PROVENTIL HFA, VENTOLIN HFA) 90 mcg/actuati on inhaler Inhale 2 Puffs as instructed every 6 hours as needed (cough, wheezing). - amLODIPine (NORVASC) 10 mg tablet Take 1 tablet by mouth o nce daily. - metFORMIN (GLUCOPHAGE) 500 mg tablet Take 2 tablets by jacob th daily with breakfast. - colchicine 0.6 mg tablet Take 2 tabs by mouth, followed by 1 tab one hour later for gout flare. - furosemide (LASIX) 40 mg tablet Take 1 tablet by mouth onc e daily as needed (edema, swelling). - hydrocortisone (HYTONE) 2.5 % lotion Apply 1-2 times/ day PRN; selectively to the rash or lesions on face, neck, ears, hair line areas. Avoid direct application to eyelids. No current facility-administered medications for this visit. Component Latest Ref Rng AND Units 01/29/2020 Protein, Total 6.3 - 8.0 g/dL 7.8 Albumin 3.9 - 4.9 g/dL 4.1 Calcium 8.5 - 10.2 mg/dL 9.9 Bilirubin, Total 0.2 - 1.3 mg/dL 0.3 Alkaline Phosphatase 38 - 113 U/L 119 (H) AST 14 - 40 U/L 19 Glucose 74 - 99 mg/dL 105 (H) BUN 9 - 24 mg/dL 17 Creatinine 0.73 - 1.22 mg/dL 1.21 Sodium 136 - 144 mmol/L 141 Potassium 3.7 - 5.1 mmol/L 4.4 Chloride 97 - 105 mmol/L 104 CO2 22 - 30 mmol/L 26 Anion Gap 9 - 18 mmol/L 11 ALT 10 - 54 U/L 8 (L) eGFR- >60 eGFR-All Other Races . 57 Cholesterol, Total <200 mg/dL 145 Triglyceride <150 mg/dL 183 (H) HDL Cholesterol >39 mg/dL 32 (L) LDL Cholesterol <100 mg/dL 76 Non HDL Cholesterol <130 mg/dL 113 Fasting Time hrs 10 VLDL Cholesterol <30 mg/dL 37 (H) TC:HDL Ratio <5.10 4.53 LDL:HDL Ratio <2.54 2.38 Hemoglobin A1C 4.3 - 5.6 % 6.7 (H) Estimated Average Glucose mg/dL 146 Hemoglobin 13.0 - 17.0 g/dL 14.4 Objective BP 130/72 (BP Site: Left Arm, BP Position: Sitting, BP Cuff Size: Large Adult) Pulse 76 Temp (!) 35.8 ?C (96.4 ?F) (Temporal Art nathan) Resp 24 Ht 171.7 cm (5' 7.6) Wt 83.5 kg (184 lb) SpO2 90% BMI 28.31 kg/m? Physical Exam Constitutional: General: He is not in acute distress. Appearance: He is not diaphoretic. Eyes: General: No scleral icterus. Conjunctiva/sclera: Conjunctivae normal. Neck: Vascular: No carotid bruit. Cardiovascular: Rate and Rhythm: Normal rate and regular rhythm. Heart sounds: No murmur. No gallop. Pulmonary: Effort: No respiratory distress. Breath sounds: Rhonchi and rales present. Abdominal: Palpations: Abdomen is soft. Tenderness: There is no abdominal tenderness. Musculoskeletal: Right lower leg: No edema. Left lower leg: No edema. Lymphadenopathy: Cervical: No cervical adenopathy. Skin: Comments: Diffuse actinic changes. Neurological: General: No focal deficit present. Mental Status: He is alert. Component Latest Ref Rng AND Units 01/29/2020 Protein, Total 6.3 - 8.0 g/dL 7.8 Albumin 3.9 - 4.9 g/dL 4.1 Calcium 8.5 - 10.2 mg/dL 9.9 Bilirubin, Total 0.2 - 1.3 mg/dL 0.3 Alkaline Phosphatase 38 - 113 U/L 119 (H) AST 14 - 40 U/L 19 Glucose 74 - 99 mg/dL 105 (H) BUN 9 - 24 mg/dL 17 Creatinine 0.73 - 1.22 mg/dL 1.21 Sodium 136 - 144 mmol/L 141 Potassium 3.7 - 5.1 mmol/L 4.4 Chloride 97 - 105 mmol/L 104 CO2 22 - 30 mmol/L 26 Anion Gap 9 - 18 mmol/L 11 ALT 10 - 54 U/L 8 (L) eGFR- >60 eGFR-All Other Races . 57 Cholesterol, Total <200 mg/dL 145 Triglyceride <150 mg/dL 183 (H) HDL Cholesterol >39 mg/dL 32 (L) LDL Cholesterol <100 mg/dL 76 Non HDL Cholesterol <130 mg/dL 113 Fasting Time hrs 10 VLDL Cholesterol <30 mg/dL 37 (H) TC:HDL Ratio <5.10 4.53 LDL:HDL Ratio <2.54 2.38 Hemoglobin A1C 4.3 - 5.6 % 6.7 (H) Estimated Average Glucose mg/dL 146 Hemoglobin 13.0 - 17.0 g/dL 14.4 Assessment and Plan ASSESSMENT/PLAN: 1. Medicare annual wellness visit, subsequent - ICD9: V70.0, ICD10: Z00.00 (primary diagnosis) See other note. 2. Pleuritic chest pain - ICD9: 786.52, ICD10: R07.81 Controlled. - GABAPENTIN 300 MG CAPSULE 3. Need for vaccination - ICD9: V05.9, ICD10: Z23 - ADMIN OF INFLUENZA VACCINE - INFLUENZA SEASONAL QUADRIVALENT HIGH DOSE AGE 65+ 4. Chronic respiratory failure with hypoxia (HCC) - ICD9: 51 8.83, 799.02, ICD10: J96.11 - I encouraged oxygen use. - CBC 5. 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 He declined invasive work up. 6. Type 2 diabetes mellitus with stage 3 chronic kidney dise ase, without long-term current use of insulin (HCC) - ICD9: 250.40, 585.3 , ICD10: E11.22, N18.3 Controlled. - Continue current medications - BMP (BMP) (FOR REMOTE [facility] USE) - HGB A1C - ALBUMIN/CREAT RATIO RND UR 7. Chronic rhinitis - ICD9: 472.0, ICD10: J31.0 Controlled. - IPRATROPIUM BROMIDE 42 MCG (0.06 %) NASAL SPRAY 8. Seborrheic dermatitis - ICD9: 690.10, ICD10: L21.9 - He was encouraged to follow up with dermatology. - HYDROCORTISONE 2.5 % LOTION 9. Pulmonary hypertension due to hypoxia (HCC) - ICD9: 416.8 , 799.02, ICD10: I27.23 On echo in 2019. Yair Moseley MD PROGRESS HNO ID: [id number] Normal 01-31-2020 [facility] Author: Yair Moseley [place] ([id number]) Service: ? Author Type: Physician Type: Progress Notes Filed: 01/31/2020 12:55 PM Note Text: Medicare Yearly Visit Medical B eligibilty date 1998 Date of last exam 08/05/2018 PAST MEDICAL HISTORY Diagnosis Date - AAA (abdominal aortic aneurysm) (HCC) 09/17/2010 - ANXIETY STATE NOS 02/03/2005 - Bladder cancer (HCC) 11/06/2014 - Bladder mass 03/27/2014 - Bladder neck obstruction 05/21/2005 - Bleeding duodenal ulcer 05/06/2019 transfused blood - Cavitating mass of lower lobe of left lung 08/25/2018 - CKD (chronic kidney disease) stage 3, GFR 30-59 ml/min (HC C) 01/30/2018 - Depressive disorder, not elsewhere classified - Elevated prostate specific antigen (PSA) - Gout of big toe 06/03/2012 - Hearing loss 02/26/2009 - Hematuria 04/10/2014 - HYPERTENSION NOS 05/05/2005 - Hypertensive kidney disease with stage 3 chronic kidney di sease (HCC) 05/05/2005 - Hypertrophy of prostate without urinary obstruction and ot her lower urinary tract symptoms (LUTS) 05/21/2005 - Mixed hyperlipidemia 02/03/2005 - Nodule of left lung 09/17/2010 - Obesity, unspecified - Pneumonia 02/05/2017 - Pulmonary hypertension due to hypoxia (HCC) 04/24/2019 - S/P AAA (abdominal aortic aneurysm) repair 02/27/2015 - Seborrheic dermatitis 01/26/2012 - Sepsis due to pneumonia (HCC) 06/16/2018 - Sepsis due to Streptococcus pneumoniae without acute organ dysfunction ([facility]) 04/15/2019 - Transient atrial fibrillation ([facility]) 04/27/2019 - Type II or unspecified type diabetes mellitus without ment ion of complication, not stated as uncontrolled 02/03/2005 prior to 2004 PAST SURGICAL HISTORY Procedure Laterality Date - BRONCHOSCOPY Left 10/26/2018 - COLONOSCOPY - DIAGNOSTIC 02/05/2004 - CT NEEDLE BIOPSY 02/09/2011 Left lung nodule, non diagnostic - CYSTOSCOPY 03/05/2015 - CYSTOSCOPY WITH BLADDER BIOPSY 04/25/2014 - EGD 02/05/2004 - EGD BIOPSY SINGLE/MULTIPLE 05/07/2019 duodenal ulcer - OP FEM ART EXPOS AORT PROSTH 10/15/2010 AAA WITH STENT GRAFT - PAST SURGICAL HISTORY OF 08/2015 skin cancer lesion removal - S VANGUARD PARTIAL KNEE Bilateral 01/2009 bilateral - SIGMOIDOSCOPY FLEX DIAG 06/23/1989 Sigmoidoscopy - TRANSURETHRAL ELEC-SURG PROSTATECTOM 06/2005 TURP Patient has no known allergies. Medications reviewed: Yes FAMILY HISTORY Problem Relation Age of Onset - Cancer Mother age 89 - Coronary Artery Disease Father age 84 - None No Family History Lung disease or lung cancer. SOCIAL HISTORY: Social History Tobacco Use - Smoking status: Former Smoker Years: 30.00 Types: Cigars Quit date: 08/23/2013 Years since quittin.4 - Smokeless tobacco: Never Used - Tobacco comment: I smoked cigars, never cigarettes. Substance Use Topics - Alcohol use: Yes Alcohol/week: 10.0 standard drinks Types: 1 Glasses of Wine (5oz), 2 Cans of Beer (12oz), 1 Mix ed Drinks per week - Drug use: No Michael denies regular aerobic exercise. He watches his diet fo r sodium, low fat and low cholesterol some of the time. List of current specialists seen: Dr. Britt, pulmonary. Dr. Tsai, ENT. [facility]. End of Live Planning discussed including patients advanced d irective wishes: Yes Does patient have an advanced directive or durable power of trademark attorney in place? Yes. PHQ-2 / Depression screen He in the past two weeks admits to having felt down or depre ssed. Functional Ability/Safety Screen 1. Was the patient's timed Up and Go test unsteady or longer than 30 seconds? No 2. Does the patient need help with the phone, transportation , shopping,preparing meals, housework, laundry, medications or managing money? No 3. Does your home have rugs in the hallway, lack of grab bar s in the bathroom, lack of handrails on the stairs or have poor light ing? No Hearing Evaluation: wears hearing aids PHYSICAL EXAM BP 130/72 (BP Site: Left Arm, BP Position: Sitting, BP Cuff Size: Large Adult) Pulse 76 Temp (!) 35.8 ?C (96.4 ?F) (Temporal Art nathan) Resp 24 Ht 171.7 cm (5' 7.6) Wt 83.5 kg (184 lb) SpO2 90% BMI 28.31 kg/m? Alert and oriented X 3: YES Body mass index is 28.31 kg/m?. Visual acuity: OD: 20/200 OS: 20/ 70 OU: 20/40. The Mini Cog(c): Word recall=1/3 + Clock drawing=1/2=2/5. (< 3 is positive). ASSESSMENT/PLAN: 84 year old male The following prevention plan was discussed during the offic e visit and provided to the patient: - Fall avoidance - Vaccines recommended Influenza and Shingrix. MD josh Guthrie on 2020-01-31 CNOV Office Visit (INTMWS) Normal 01-31-20 20 [facility] TRACEESukiMICHAEL Ancelmo ([id number]) 1935 M [facility] Date Time Provider Department ([id number]) 01/31/20 11:20 AM YAIR MOSELEY INTMWS During your visit today, we recorded the following informati on about you: Temperature Pulse Respiration Blood pressure 96.4 degrees 76/minute 24/minute 130/72 Weight Height 83.5 kg 1.717 m Yair Moseley MD 01/31/2020 12:55 PM Signed Medicare Yearly Visit Medical B eligibilty date 1998 Date of last exam 08/05/2018 PAST MEDICAL HISTORY Diagnosis Date - AAA (abdominal aortic aneurysm) ([facility]) 09/17/2010 - ANXIETY STATE NOS 02/03/2005 - Bladder cancer ([facility]) 11/06/2014 - Bladder mass 03/27/2014 - Bladder neck obstruction 05/21/2005 - Bleeding duodenal ulcer 05/06/2019 transfused blood - Cavitating mass of lower lobe of left lung 08/25/2018 - CKD (chronic kidney disease) stage 3, GFR 30-59 ml/min ( C) 01/30/2018 - Depressive disorder, not elsewhere classified - Elevated prostate specific antigen (PSA) - Gout of big toe 06/03/2012 - Hearing loss 02/26/2009 - Hematuria 04/10/2014 - HYPERTENSION NOS 05/05/2005 - Hypertensive kidney disease with stage 3 chronic kidney di sease ([facility]) 05/05/2005 - Hypertrophy of prostate without urinary obstru ction and other lower urinary tract symptoms (LUTS) 05/21/2005 - Mixed hyperlipidemia 02/03/2005 - Nodule of left lung 09/17/2010 - Obesity, unspecified - Pneumonia 02/05/2017 - Pulmonary hypertension due to hypoxia ([facility]) 04/24/2019 - S/P AAA (abdominal aortic aneurysm) repair 02/27/2015 - Seborrheic dermatitis 01/26/2012 - Sepsis due to pneumonia ([facility]) 06/16/2018 - Sepsis due to Streptococcus pneumoniae without acute organ dysfunction ([facility]) 04/15/2019 - Transient atrial fibrillation ([facility]) 04/27/2019 - Type II or unspecified type diabetes mellitus without ment ion of complication, not stated as uncontrolled 02/03/2005 prior to 2004 PAST SURGICAL HISTORY Procedure Laterality Date - BRONCHOSCOPY Left 10/26/2018 - COLONOSCOPY - DIAGNOSTIC 02/05/2004 - CT NEEDLE BIOPSY 02/09/2011 Left lung nodule, non diagnostic - CYSTOSCOPY 03/05/2015 - CYSTOSCOPY WITH BLADDER BIOPSY 04/25/2014 - EGD 02/05/2004 - EGD BIOPSY SINGLE/MULTIPLE 05/07/2019 duodenal ulcer - OP FEM ART EXPOS AORT PROSTH 10/15/2010 AAA WITH STENT GRAFT - PAST SURGICAL HISTORY OF 08/2015 skin cancer lesion removal - S VANGUARD PARTIAL KNEE Bilateral 01/2009 bilateral - SIGMOIDOSCOPY FLEX DIAG 06/23/1989 Sigmoidoscopy - TRANSURETHRAL ELEC-SURG PROSTATECTOM 06/2005 TURP Patient has no known allergies. Medications reviewed: Yes FAMILY HISTORY Problem Relation Age of Onset - Cancer Mother age 89 - Coronary Artery Disease Father age 84 - None No Family History Lung disease or lung cancer. SOCIAL HISTORY: Social History Tobacco Use - Smoking status: Former Smoker Years: 30.00 Types: Cigars Quit date: 08/23/2013 Years since quittin.4 - Smokeless tobacco: Never Used - Tobacco comment: I smoked cigars, never cigarettes. Substance Use Topics - Alcohol use: Yes Alcohol/week: 10.0 standard drinks Types: 1 Glasses of Wine (5oz), 2 Cans of Beer (12oz), 1 Mix ed Drinks per week - Drug use: No Michael denies regular aerobic exercise. He watches his diet for sodium, low fat and low cholesterol some of the time. List of current specialists seen: Dr. Britt, pulmonary. Dr. Tsai, ENT. [facility]. End of Live Planning discuss ed including patients advanced directive wishes: Yes Does patient have an advanced directive or durable power of trademark attorney in place? Yes. PHQ-2 / Depression screen He in the past two weeks admits to having felt down or depre ssed. Functional Ability/Safety Screen 1. Was the patient's timed Up and Go test unstea dy or longer than 30 seconds? No 2. Does the patient need help with the phone, transportation , shopping,preparing meals, ho usework, laundry, medications or managing money? No 3. Does your home have rugs in the hallw ay, lack of grab bars in the bathroom, lack of handrails on the stairs or have poor lighting? No Hearing Evaluation: wears hearing aids PHYSICAL EXAM BP 130/72 (BP Site: Left Arm, BP Positio n: Sitting, BP Cuff Size: Large Adult) Pulse 76 Temp (!) 35.8 ?C (96.4 ?F) (Temporal Artery) Resp 24 Ht 171.7 cm (5' 7.6) Wt 83.5 kg (184 lb) SpO2 90% BMI 28 .31 kg/m? Alert and oriented X 3: YES Body mass index is 28.31 kg/m?. Visual acuity: OD: 20/200 OS: 20/ 70 OU: 20/40. The Mini Cog(c): Word recall=1/3 + Clock drawing=1/2=2/5. (<3 is positive). ASSESSMENT/PLAN: 84 year old male The following prevention plan was discussed during the offic e visit and provided to the patient: - Fall avoidance - Vaccines recommended Influenza and Shingrix. MD Yair Guthrie MD 01/31/2020 12:55 PM Signed This note was created using Zoe Majeste. Subjective Michael Howard is a 84 year old male. He had no new concerns. Dr. Tsai referred him for speech and swallow therapy. Dr. Britt was ordering portable oxygen for him. He had a concentrator at home, but did not use it regularly. His hypertension was controlled. His pleuritic chest pain re solved with gabapentin. Review of Systems Constitutional: Negative for appetite change, chills and fev er. HENT: Positive for trouble swallowing. Respiratory: Positive for cough, shortness of breath and whe ezing. Cardiovascular: Negative. Negative for chest pain. Gastrointestinal: Negative. Genitourinary: Negative. Musculoskeletal: Negative. Neurological: Negative. Psychiatric/Behavioral: Positive for dysphoric mood. Mild. 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 083 %) nebulizer solution Use 3 mL via nebulizer every 6 hours as needed for Wheezing/Shortne ss of Breath. Use over 5-15minutes. - gabapentin (NEURONTIN) 300 mg capsule Take 1 capsule by mo uth daily at bedtime for 30 days. For pain. - lisinopril (ZESTRIL, PRINIVIL) 10 mg tablet Take 1 tablet by mouth once daily. - metoprolol succinate ER (T OPROL XL) 50 mg 24 hr tablet Take 1 tablet by mouth once daily. - ipratropium bromide (ATROVENT) 42 mcg (0.06 %) nasal spray Use 2 Sprays in the nose twice daily as needed (nasal drainage). - albuterol HFA (PROVENTIL H FA, VENTOLIN HFA) 90 mcg/actuation inhaler Inhale 2 Puffs as instructed every 6 hours as needed (cough, wheezing ). - amLODIPine (NORVASC) 10 mg tablet Take 1 tablet by mouth o nce daily. - metFORMIN (GLUCOPHAGE) 500 mg tablet Take 2 tablets by jacob th daily with breakfast. - colchicine 0.6 mg tablet Take 2 tabs by mouth, followed by 1 tab one hour later for gout flare. - furosemide (LASIX) 40 mg tablet Take 1 tablet by mouth once daily as needed (edema, swelling). - hydrocortisone (HYTONE) 2. 5 % lotion Apply 1-2 times/ day PRN; selectively to the rash or lesions on face, neck, ears, hairline areas. Julian id direct application to eyelids. No current facility-administered medications for this visit. Component Latest Ref Rng AND Units 01/29/2020 Protein, Total 6.3 - 8.0 g/dL 7.8 Albumin 3.9 - 4.9 g/dL 4.1 Calcium 8.5 - 10.2 mg/dL 9.9 Bilirubin, Total 0.2 - 1.3 mg/dL 0.3 Alkaline Phosphatase 38 - 113 U/L 119 (H) AST 14 - 40 U/L 19 Glucose 74 - 99 mg/dL 105 (H) BUN 9 - 24 mg/dL 17 Creatinine 0.73 - 1.22 mg/dL 1.21 Sodium 136 - 144 mmol/L 141 Potassium 3.7 - 5.1 mmol/L 4.4 Chloride 97 - 105 mmol/L 104 CO2 22 - 30 mmol/L 26 Anion Gap 9 - 18 mmol/L 11 ALT 10 - 54 U/L 8 (L) eGFR- >60 eGFR-All Other Races . 57 Cholesterol, Total <200 mg/dL 145 Triglyceride <150 mg/dL 183 (H) HDL Cholesterol >39 mg/dL 32 (L) LDL Cholesterol <100 mg/dL 76 Non HDL Cholesterol <130 mg/dL 113 Fasting Time hrs 10 VLDL Cholesterol <30 mg/dL 37 (H) TC:HDL Ratio <5.10 4.53 LDL:HDL Ratio <2.54 2.38 Hemoglobin A1C 4.3 - 5.6 % 6.7 (H) Estimated Average Glucose mg/dL 146 Hemoglobin 13.0 - 17.0 g/dL 14.4 Objective BP 130/72 (BP Site: Left Arm, BP Positio n: Sitting, BP Cuff Size: Large Adult) Pulse 76 Temp (!) 35.8 ?C (96.4 ?F) (Temporal Artery) Resp 24 Ht 171.7 cm (5' 7.6) Wt 83.5 kg (184 lb) SpO2 90% BMI 28 .31 kg/m? Physical Exam Constitutional: General: He is not in acute distress. Appearance: He is not diaphoretic. Eyes: General: No scleral icterus. Conjunctiva/sclera: Conjunctivae normal. Neck: Vascular: No carotid bruit. Cardiovascular: Rate and Rhythm: Normal rate and regular rhythm. Heart sounds: No murmur. No gallop. Pulmonary: Effort: No respiratory distress. Breath sounds: Rhonchi and rales present. Abdominal: Palpations: Abdomen is soft. Tenderness: There is no abdominal tenderness. Musculoskeletal: Right lower leg: No edema. Left lower leg: No edema. Lymphadenopathy: Cervical: No cervical adenopathy. Skin: Comments: Diffuse actinic changes. Neurological: General: No focal deficit present. Mental Status: He is alert. Component Latest Ref Rng AND Units 01/29/2020 Protein, Total 6.3 - 8.0 g/dL 7.8 Albumin 3.9 - 4.9 g/dL 4.1 Calcium 8.5 - 10.2 mg/dL 9.9 Bilirubin, Total 0.2 - 1.3 mg/dL 0.3 Alkaline Phosphatase 38 - 113 U/L 119 (H) AST 14 - 40 U/L 19 Glucose 74 - 99 mg/dL 105 (H) BUN 9 - 24 mg/dL 17 Creatinine 0.73 - 1.22 mg/dL 1.21 Sodium 136 - 144 mmol/L 141 Potassium 3.7 - 5.1 mmol/L 4.4 Chloride 97 - 105 mmol/L 104 CO2 22 - 30 mmol/L 26 Anion Gap 9 - 18 mmol/L 11 ALT 10 - 54 U/L 8 (L) eGFR- >60 eGFR-All Other Races . 57 Cholesterol, Total <200 mg/dL 145 Triglyceride <150 mg/dL 183 (H) HDL Cholesterol >39 mg/dL 32 (L) LDL Cholesterol <100 mg/dL 76 Non HDL Cholesterol <130 mg/dL 113 Fasting Time hrs 10 VLDL Cholesterol <30 mg/dL 37 (H) TC:HDL Ratio <5.10 4.53 LDL:HDL Ratio <2.54 2.38 Hemoglobin A1C 4.3 - 5.6 % 6.7 (H) Estimated Average Glucose mg/dL 146 Hemoglobin 13.0 - 17.0 g/dL 14.4 Assessment and Plan ASSESSMENT/PLAN: 1. Medicare annual wellness visit, subsequent - ICD9: V70.0, ICD10: Z00.00 (primary diagnosis) See other note. 2. Pleuritic chest pain - ICD9: 786.52, ICD10: R07.81 Controlled. - GABAPENTIN 300 MG CAPSULE 3. Need for vaccination - ICD9: V05.9, ICD10: Z23 - ADMIN OF INFLUENZA VACCINE - INFLUENZA SEASONAL QUADRIVALENT HIGH DOSE AGE 65+ 4. Chronic respiratory failure with hypoxia (HCC) - ICD9: 51 8.83, 799.02, ICD10: J96.11 - I encouraged oxygen use. - CBC 5. 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 He declined invasive work up. 6. 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 - Continue current medications - BMP (BMP) (FOR REMOTE COMMUNITY HEALTH USE) - HGB A1C - ALBUMIN/CREAT RATIO RND UR 7. Chronic rhinitis - ICD9: 472.0, ICD10: J31.0 Controlled. - IPRATROPIUM BROMIDE 42 MCG (0.06 %) NASAL SPRAY 8. Seborrheic dermatitis - ICD9: 690.10, ICD10: L21.9 - He was encouraged to follow up with dermatology. - HYDROCORTISONE 2.5 % LOTION 9. Pulmonary hypertension due to hypoxia (HCC) - ICD9: 416.8, 799.02, ICD10: I27.23 On echo in 2019. 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 For pain.Disp: 90 capsuleRfl: 3 ipratropium bromide (ATROVENT) 42 mcg (0.06 %) nasal sprayUs e 2 Sprays in the nose twice daily as needed (nasal drainage).Di sp: 15 mLRfl: 5 hydrocortisone (HYTONE) 2.5 % lotionApply 1-2 times/ day PRN ; selectively to the rash or lesions on face, neck, ears, hair line areas. Avoid direct application to eyelids.Disp: 60 mLRfl: 1 CBC [SQCBC] Order #: [id number] FUTURE BMP (BMP) (FOR REMOTE COMMUNITY HEALTH USE) [SQRBMP] Order #: [id number] FUTURE HGB A1C [GWIZK4D] Order #: [id number] FUTURE ALBUMIN/CREAT RATIO RND UR [SQUACR] Order #: [id number] FUTU RE Prescriptions as of 01/31/2020 Sig: GABAPENTIN 300 MG CAPSULE Take 1 capsule by mouth daily* IPRATROPIUM BROMIDE 42 MCG (0* Use 2 Sprays in the nose twic * HYDROCORTISONE 2.5 % LOTION Apply 1-2 times/ day PRN; dottie* ALBUTEROL SULFATE 2.5 MG/3 ML* Use 3 mL via nebulizer every * LISINOPRIL 10 MG TABLET Take 1 tablet by mouth once d* METOPROLOL SUCCINATE ER 50 MG* Take 1 tablet by mouth once d * ALBUTEROL SULFATE HFA 90 MCG/* Inhale 2 Puffs as instructed * AMLODIPINE 10 MG TABLET Take 1 tablet by mouth once d* METFORMIN 500 MG TABLET Take 2 tablets by mouth daily* COLCHICINE 0.6 MG TABLET Take 2 tabs by mouth, followe* FUROSEMIDE 40 MG TABLET Take 1 tablet by mouth once d* Problem List As Of Date 01/31/2020 Noted Resolved Mixed hyperlipidemia [E78.2] 02/03/2005 More... Type 2 diabetes mellitus with stage 3 chronic k* More... Depressive disorder, not elsewhere classified [* 10/28/2011 More... Elevated prostate specific antigen (PSA) [R97.2* 10/28/2011 BPH w/o urinary obs/LUTS [N40.0] 09/15/2010 OVERWEIGHT [E66.9] 09/15/2010 GENERAL OSTEOARTHROSIS [M15.9] 02/03/2005 Depression with anxiety [F41.8] 02/03/2005 Hypertensive kidney disease with stage 3 chroni*05/05/2005 More... Bladder neck obstruction [N32.0] 05/21/2005 10/28/2011 BPH W URINARY OBS/LUTS [N40.1] 05/21/2005 10/28/2011 Hearing Loss [H91.90] 02/26/2009 AAA (abdominal aortic aneurysm) [I71.4] 09/17/2010 2 Nodule of left lung [R91.1] 09/17/2010 05/02/2015 More... BPH loc w/o ur obs/LUTS [N40.0] 06/24/2011 10/28/2011 Actinic Keratoses (Premalignant AK's) [L57.0] 01/26/201203/2015 Actinic skin damage [L57.8] 01/26/2012 04/10/2014 Solar Lentigines [L81.4] 01/26/2012 04/10/2014 Chronic rhinitis [J31.0] 02/15/2012 Other seborrheic keratosis [L82.1] 03/11/2012 03/27/2015 Hypertrophic scar [L91.0] 03/11/2012 04/10/2014 Scar condition and fibrosis of skin [L90.5] 03/11/201204/10 Xerosis cutis [L85.3] 09/29/2013 03/27/2015 BPH (benign prostatic hyperplasia) [N40.0] 04/10/2014 History of bladder cancer [Z85.51] 11/06/2014 Obesity, Class II, BMI 35-39.9 [E66.9] 02/27/2015 03/31/2019 Multiple thyroid nodules [E04.2] 02/27/2015 02/27/2015 Gout of big toe [M10.9] 06/03/2012 Physical debility [R53.81] 03/19/2016 04/16/2016 Actinic keratosis [L57.0] 08/05/2016 More... 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 [J98*08/25/2018 Obesity, Class I, BMI 30-34.9 [E66.9] 03/31/2019 Transient atrial fibrillation (HCC) [I48.91] 04/27/201901/15 Chronic respiratory failure with hypoxia (HCC) *08/09/2019 Sepsis due to Streptococcus pneumoniae without *04/27/2019 0 08/09/2019 History of DVT (deep vein thrombosis) [Z86.718] 06/02/2019 Pleuritic chest pain [R07.81] 01/31/2020 Oropharyngeal dysphagia [R13.12] 01/31/2020 Pulmonary hypertension due to hypoxia (HCC) [I2*04/24/2019 Prescriptions ordered this encounter Disp Refills Start End GABAPENTIN 300 MG CAPSULE 90 c* 3 01/31/2020 03/01/2020 Route: ORAL Sig: Take 1 capsule by mouth daily at bedtime for 30 days. F or pain. IPRATROPIUM BROMIDE 42 MCG (0.06 %) * 15 mL 5 01/31/2020 Sig: Use 2 Sprays in the nose twice daily as needed (nasal d rainage). HYDROCORTISONE 2.5 % LOTION 60 mL 1 01/31/2020 Sig: Apply 1-2 times/ day PRN; selectively to the rash or le sions on face, neck, ears, hairline areas. Avoid direct application to eyel ids. Medications Discontinued During This Encounter Prescriptions - hydrocortisone (HYTONE) 2.5 % lotion (Discontinued) Apply 1-2 times/ day PRN; selectively to the rash or lesio ns on face, neck, ears, hairline areas. Avoid direct application to eyelids. - ipratropium bromide (ATROVENT) 42 mcg (0.06 %) nasal spr ay (Discontinued) Use 2 Sprays in the nose twice daily as needed (nasal draina ge). - gabapentin (NEURONTIN) 300 mg capsule (Discontinued) Take 1 capsule by mouth daily at bedtime for 30 days. For pa in. Disposition: Return in about 6 months (around 07/30/2020). Follow-up and Disposition History Recorded Encounter Status:Closed by YAIR MOSELEY MD on 01/31/20 lipid panel, basic on 2020-01-29 Cholesterol [Mass/Vol] 145 <200 mg/dL Normal 020 [facility] ([id number]) Comment: Result Comment: <200 mg/dL, Desirable 200-239 mg/dL, Borderline hi gh >239 mg/dL, High Performed By: #### HGB, CMP, LIPB, HBA1C ####[facility] [place], [place] [phone] Cholesterol in HDL [Mass/Vol] 32 >39 mg/dL Low 01-29-2020 [facility] ([id number]) Comment: Result Comment: 40-59 mg/dL, Acceptable >59 mg/dL, High: Negative ri sk factor for coronary heart disease <40 mg/dL, Low: Positive ris k factor for coronary heart disease Performed By: #### HGB, CMP, LIPB, HBA1C ####[address] [phone] Cholesterol in LDL 76 <100 mg/dL Normal 01-29-2020 [facility] [Mass/Vol] [place] ([address]) Comment: Result Comment: <100 mg/dL, Optimal 100-129 mg/dL, Near optimal/ above optimal 130-159 mg/dL, Borderline hi gh 160-189 mg/dL, High >189 mg/dL, Very high Secondary prevention optimal LDL Cholesterol levels are recommended to be < 70 mg/dL Performed By: #### HGB, CMP, LIPB, HBA1C ####[address] [phone] Fasting Time 10 hrs Normal 01-29-2020 [facility] ([id number]) Comment: Performed By: #### HGB, CMP, LIPB, HBA1C ####[address] [phone] LDL:HDL Ratio 2.38 <2.54 Normal 01-29-2020 [facility] (63567) Comment: Result Comment: Reference: 1. National Cholesterol Educ ation Program ATP III Guideline At-A-Glance Quick Desk Reference: National Heart, Lung, and Blood [place]. National Institutes of Health. 2001: NIH Publication No. 01-3305. 2. An International Atherosc lerosis Society position paper: global recommendations for the management of dyslipidemia: executive summary, Atherosclerosis. 2014: 232(2):410-413. Performed By: #### HGB, CMP, LIPB, HBA1C ####[facility] [address] [place], [place] [phone] Non HDL Cholesterol 113 <130 mg/dL Normal 01-29-2020 [facility] (69415) Comment: Result Comment: <130 mg/dL, Optimal 130-159 mg/dL, Near optimal/ above optimal 160-189 mg/dL, Borderline hi gh 190-219 mg/dL, High >219 mg/dL, Very high Secondary prevention optimal non HDL Cholesterol levels are recommended to be < 100 mg/dL Performed By: #### HGB, CMP, LIPB, HBA1C ####[facility] [address] [place] [phone] TC:HDL Ratio 4.53 <5.10 Normal 01-29-2020 [facility] ([id number]) Comment: Performed By: #### HGB, CMP, LIPB, HBA1C ####[facility] [place] [phone] Triglyceride [Mass/Vol] 183 <150 mg/dL High 2019 [facility] ([id number]) Comment: Result Comment: <150 mg/dL, Normal 150-199 mg/dL, Borderline hi gh 200-499 mg/dL, High >499 mg/dL, Very high Performed By: #### HGB, CMP, LIPB, HBA1C ####[facility] [address] [place], [place] [phone] VLDL Cholesterol 37 <30 mg/dL High 01-29-2020 [facility] ([id number]) Comment: Performed By: #### HGB, CMP, LIPB, HBA1C ####[facility] [address] [place], [place] [phone] hemoglobin on 01-28 Hemoglobin (Bld) 14.4 13.0-17.0 g/dL Normal 01-29-2020 [facility] [Mass/Vol] [place] ([address]10) Comment: Performed By: #### HGB, CMP, LIPB, HBA1C ####[facility] [address] [place], [place] [phone] hemoglobin a1c on 2 HbA1c (Bld) [Mass fraction] 146 mg/dL Normal [facility] (09022) Comment: Result Comment: eAG: (Estima carlos average glucose) is a calculated value from HgbA1c and is business services representative of the average blood glucose level in the last 2-3 month period. Performed By: #### HGB, CMP, LIPB, HBA1C ####[place] [address] [place], [place] [phone] HbA1c (Bld) [Mass fraction] 6.7 4.3-5.6 % High [facility] (43609) Comment: Result Comment: [place] Is[place] betes Association guidelines indicate that patients with HgbA1c in the range 5.7-6.4% are at increased risk for development of diabetes, and intervention by lifestyle modification may be beneficial. HgbA1c greater o r equal to 6.5% is considered diagnostic of diabetes. Performed By: #### HGB, CMP, LIPB, HBA1C ####[place] [address], [place] [phone] comp metabolic panel on 2020-01-29 Albumin [Mass/Vol] 4.1 3.9-4.9 g/dL Normal 01-29-2020 [facility] (10662) Comment: Performed By: #### HGB, CMP, LIPB, HBA1C ####[place] [address] [place], [place] [phone] ALP [Catalytic activity/Vol] 119 38-113 U/L High 0 01-29-2020 [facility] (25807) Comment: Performed By: #### HGB, CMP, LIPB, HBA1C ####[place] [address] [place], [place] [phone] ALT [Catalytic activity/Vol] 8 10-54 U/L Low 0 01-29-2020 [facility] (62652) Comment: Performed By: #### HGB, CMP, LIPB, HBA1C ####[place] [address] [place], [place] [phone] Anion gap [Moles/Vol] 11 9-18 mmol/L Normal 01-29-20 20 [facility] (28985) Comment: Performed By: #### HGB, CMP, LIPB, HBA1C ####[facility] [place], [place] [phone] AST [Catalytic activity/Vol] 19 14-40 U/L Normal 0 01-29-2020 [facility] (13998) Comment: Performed By: #### HGB, CMP, LIPB, HBA1C ####[facility] [place], [place] [phone] Bilirubin [Mass/Vol] 0.3 0.2-1.3 mg/dL Normal 0 [facility] (21052) Comment: Performed By: #### HGB, CMP, LIPB, HBA1C ####[place] [address] [place], [place] [phone] Calcium [Mass/Vol] 9.9 8.5-10.2 mg/dL Normal 01-29-2020 [facility] (55587) Comment: Performed By: #### HGB, CMP, LIPB, HBA1C ####[facility] [place], [place] [phone] Chloride [Moles/Vol] 104 97-105 mmol/L Normal 0 [facility] (13142) Comment: Performed By: #### HGB, CMP, LIPB, HBA1C ####[facility] [place], [place] [phone] CO2 [Moles/Vol] 26 22-30 mmol/L Normal 01-29-2020 [facility] (91450) Comment: Performed By: #### HGB, CMP, LIPB, HBA1C ####[facility] [place], [place] [phone] Creatinine [Mass/Vol] 1.21 0.73-1.22 mg/dL Normal 01-29-20 20 [facility] (87440) Comment: Performed By: #### HGB, CMP, LIPB, HBA1C ####[facility] [address] [place], [place] [phone] eGFR- Amer. >60 Normal 01-29-2020 [facility] (19718) Comment: Performed By: #### HGB, CMP, LIPB, HBA1C ####[facility] [address] [place], [place] [phone] GFR/1.73 sq M predicted among 57 . Normal 01-29-2020 [facility] non-blacks MDRD (S/P/Bld) [Vol (55667) rate/Area] Comment: Result Comment: eGFR (Estima carlos GFR) Units of measure: mL/min/1.73 meters squared eGFR is derived from the ree xpressed MDRD Study equation using the following parameters: serum creatinine, age, gender and race. The creatinine assay has been calibrated to be traceable to IDMS. An eGFR <60 mL/min/1.73m2 fo r >3 months is consistent with chronic kidney disease. Refer to KDOQI guidelines for clinical interpretation. In patients with unstable re nal function, e.g. those with acute kidney injury, the eGFR may not accurately reflect actual GFR. Performed By: #### HGB, CMP, LIPB, HBA1C ####[facility] [address], [place] [phone] Glucose [Mass/Vol] 105 74-99 mg/dL High 01-29-2020 [facility] (75812) Comment: Result Comment: The [place] Diabetes Association (ADA) provides guidance for cutoff values for fasting glucose and random glucose. The ADA defines fasting as no caloric intake for at least 8 hours. Fas ting plasma glucose results between 100 to 125 mg/dL indicate increased risk for diabetes (prediabetes). Fasting plasma glucose resul ts greater than or equal to 126 mg/dL meet the criteria for diagnosis of diabetes. In the absence of unequivocal hyperglycemia, results should be confirmed by repeat testing. In a patient with classic s ymptoms of hyperglycemia or hyperglycemic crisis, random plasma glucose results greater than or equal to 200 mg/dL meet the criteria for diagnosis of diabetes. Reference: Standards of [facility] Care in Diabetes 2016, [place] Diabetes Association. Diabetes Care. 2016.39(Suppl 1). Performed By: #### HGB, CMP, LIPB, HBA1C ####[facility] [address] [place], [place] [phone] Potassium [Moles/Vol] 4.4 3.7-5.1 mmol/L Normal 01-29-20 [facility] (45166) Comment: Performed By: #### HGB, CMP, LIPB, HBA1C ####[facility] [address] [place], [place] [phone] Protein [Mass/Vol] 7.8 6.3-8.0 g/dL Normal 01-29-2020 [facility] (25127) Comment: Performed By: #### HGB, CMP, LIPB, HBA1C ####[facility] [address] [place], [place] [phone] Sodium [Moles/Vol] 141 136-144 mmol/L Normal 01-29-2020 [facility] (52672) Comment: Performed By: #### HGB, CMP, LIPB, HBA1C ####[facility] [address] [place], [place] [phone] Urea nitrogen [Mass/Vol] 17 9-24 mg/dL Normal 01-28 [facility] (86765) Comment: Performed By: #### HGB, CMP, LIPB, HBA1C ####[facility] [address] [place], [place] [phone] No panel information on 2019-12-29 Book Sewer NAME : MICHAEL HOWARD [birth year][address] [place] [address] PID : [id number] ([phone]) : 1935 Gender : Male Race : ORD : [id number] Procedure Date : Dec 21 2019 08:40:20 Edit Date : Dec 29 2019 07:56:41 Diagnosis:SINUS RHYTHM WITH PREMATURE VENTRICULAR COMPLEXES INFERIOR MYOCARDIAL INFARCTION , AGE UNDETERMINED ABNORMAL ECG Confirmed by GONZÁLEZ FELIPE M.D. ([id number]) on 12/29/2019 7:56: 40 AM Ventricular Rate : 68 BPM Atrial Rate : 68 BPM P-R Interval : 158 ms QRS Duration : 86 ms Q-T Interval : 388 ms QTC Calculation(Bazett) : 412 ms P [place] : -17 degrees R [place] : -18 degrees T [place] : 25 degrees Test Reason : Location : 185 : [facility] Overread By : GONZÁLEZ FELIPE M.D. Edited By : GONZÁLEZ FELIPE M.D. Referred By : YAIR MOSELEY Acquired by : david STEVENSON on 2019-12 PROGRESS HNO ID: [id number] Normal 12-21-2019 [facility] Author: Yair Moseley [place] ([id number]) Service: ? Author Type: Physician Type: Progress Notes Filed: 12/21/2019 9:07 AM Note Text: This note was created using mobicanvaster. Subjective Michael Howard is a 84 year old male. He completed Lovenox fo r deep vein thrombosis. He had no recurrent major edema. He was now on o xygen for chronic respiratory failure. Dr. Britt was arranging for po rtable oxygen. Lung disease was being managed conservatively. He moran d not done his fasting labs. He was not on oxygen. Review of Systems Constitutional: Positive for unexpected weight change. Negat ivonne for chills and fever. Respiratory: Positive for cough and shortness of breath. Cardiovascular: Positive for chest pain. Negative for palpit ations and leg swelling. Daily sharp left sided chest relieved by leaning forward, or change in position, moderately severe. Gastrointestinal: Negative. Musculoskeletal: Negative. 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 - metoprolol succinate ER (TOPROL XL) 50 mg 24 hr tablet Suhail e 1 tablet by mouth once daily. - ipratropium bromide (ATROVENT) 42 mcg (0.06 %) nasal spray Use 2 Sprays in the nose twice daily as needed (nasal drainage). - albuterol HFA (PROVENTIL HFA, VENTOLIN HFA) 90 mcg/actuati on inhaler Inhale 2 Puffs as instructed every 6 hours as needed (cough, wheezing). - amLODIPine (NORVASC) 10 mg tablet Take 1 tablet by mouth o nce daily. - metFORMIN (GLUCOPHAGE) 500 mg tablet Take 2 tablets by jacob th daily with breakfast. - albuterol (PROVENTIL) 2.5 mg /3 mL (0.083 %) nebulizer saida ution Use 3 mL via nebulizer every 6 hours as needed for Wheezing/Shortness of Breath. Use over 5-15minutes. - colchicine 0.6 mg tablet Take 2 tabs by mouth, followed by 1 tab one hour later for gout flare. - furosemide (LASIX) 40 mg tablet Take 1 tablet by mouth onc e daily as needed (edema, swelling). - hydrocortisone (HYTONE) 2.5 % lotion Apply 1-2 times/ day PRN; selectively to the rash or lesions on face, neck, ears, hair line areas. Avoid direct application to eyelids. No current facility-administered medications for this visit. Objective BP 130/80 (BP Site: Left Arm, BP Position: Sitting, BP Cuff Size: Large Adult) Pulse 104 Temp 36.6 ?C (97.8 ?F) (Temporal Artery ) Resp 28 Physical Exam Constitutional: General: He is not in acute distress. Appearance: He is not diaphoretic. Neck: Vascular: No JVD. Cardiovascular: Rate and Rhythm: Tachycardia present. Rhythm irregular. Heart sounds: S1 normal and S2 normal. No murmur. No gallop. Pulmonary: Effort: Respiratory distress present. Breath sounds: Wheezing, rhonchi and rales present. Chest: Chest wall: No tenderness. Abdominal: General: There is no distension. Palpations: Abdomen is soft. Musculoskeletal: Right lower leg: No edema. Left lower leg: No edema. Lymphadenopathy: Cervical: No cervical adenopathy. Neurological: General: No focal deficit present. Mental Status: He is alert. Feet:Shoes and socks removed, No deformities, ulcers, callus es, normal distal pulses, sensitive to 10 gm monofilament and nails not able for Hypertrophic or Yellowish EKG RESULTS: normal sinus rhythm and marked sinus arrhythmia, inferior in farct pattern, no acute changes. Assessment and Plan 1. Transient atrial fibrillation (HCC) - ICD9: 427.31, ICD10 : I48.91 (primary diagnosis) Inactive. - ECG COMPLETE 2. Bronchitis with bronchospasm - ICD9: 490, ICD10: J20.[address] Britt's consultation 12/13/19 reviewed. - ALBUTEROL SULFATE 2.5 MG/3 ML (0.083 %) SOLUTION FOR NEBUL IZATION 3. Pleuritic chest pain - ICD9: 786.52, ICD10: R07.81 Atypical chest pain, symptoms are not consistent with cardia c ischemia due to nonexertional nature of symptom possible etiology include lung disease or lung mass. - GABAPENTIN 300 MG CAPSULE Discussed medication dosage, usage, goals of therapy, and si de effects. 4. 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 Chronic respiratory failure with hypoxia (HCC) - ICD9: 51 8.83, 799.02, ICD10: J96.11 I stressed importance of oxygen. During this patient visit I have spent approximately 25 maxime aditya out of 45 in counseling regarding conditions, medications and coordina ting care. Yair Moseley MD ecg complete on ECG COMPLETE NAME : MICHAEL HOWARD 12-21-19 [facility] PID : [id number] Osbaldo quach ([id number]) : 1935 Gender : Male Race : ORD : [id number] Procedure Date : Dec 21 2019 08:40:20 Edit Date : Dec 29 2019 07:56:41 Diagnosis:SINUS RHYTHM WITH PREMATURE VENTRICULAR COMPLEXES INFERIOR MYOCARDIAL INFARCTION , AGE UNDETERMINED ABNORMAL ECG Confirmed by GONZÁLEZ FELIPE M.D. ([id number]) on 12/29/2019 7:56: 40 AM Ventricular Rate : 68 BPM Atrial Rate : 68 BPM P-R Interval : 158 ms QRS Duration : 86 ms Q-T Interval : 388 ms QTC Calculation(Bazett) : 412 ms P [place] : -17 degrees R [place] : -18 degrees T [place] : 25 degrees Test Reason : Location : 185 : [facility] Overread By : GONZÁLEZ FELIPE M.D. Edited By : GONZÁLEZ FELIPE M.D. Referred By : YAIR MOSELEY Acquired by : josh STEVENSON on 2019-12-21 CNOV Office Visit (INTMWS) Normal 12-21-[address] [place] [address] [facility] MICHAEL HOWARD ([id number]) 1935 [facility] Date Time Provider Department ([id number]) 12/21/19 8:00 AM YAIR MOSELEY INTMWS During your visit today, we recorded the following informati on about you: Temperature Pulse Respiration Blood pressure 97.8 degrees 104/minute 28/minute 130/80 Yair Moseley MD 12/21/2019 9:07 AM Signed This note was created using EarlyTracksriter. Subjective Michael Howard is a 84 year old male. He completed Lovenox fo r deep vein thrombosis. He had no recurrent major edema. He was now on oxygen for chronic respiratory failure. Dr. Britt was arranging for portable o xygen. Lung disease was being managed conservatively . He had not done his fasting labs. He was not on oxygen. Review of Systems Constitutional: Positive for unexpected weight change. Negative for chills and fever. Respiratory: Positive for cough and shortness of breath. Cardiovascular: Positive for chest pain. Negative for palpit ations and leg swelling. Daily sharp left sided chest relieved by leaning forward, or change in position, moderately severe. Gastrointestinal: Negative. Musculoskeletal: Negative. 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 - metoprolol succinate ER (T OPROL XL) 50 mg 24 hr tablet Take 1 tablet by mouth once daily. - ipratropium bromide (ATROVENT) 42 mcg (0.06 %) nasal spray Use 2 Sprays in the nose twice daily as needed (nasal drainage). - albuterol HFA (PROVENTIL H FA, VENTOLIN HFA) 90 mcg/actuation inhaler Inhale 2 Puffs as instructed every 6 hours as needed (cough, wheezing ). - amLODIPine (NORVASC) 10 mg tablet Take 1 tablet by mouth o nce daily. - metFORMIN (GLUCOPHAGE) 500 mg tablet Take 2 tablets by jacob th daily with breakfast. - albuterol (PROVENTIL) 2.5 mg /3 mL (0. 083 %) nebulizer solution Use 3 mL via nebulizer every 6 hours as needed for Wheezing/Shortne ss of Breath. Use over 5-15minutes. - colchicine 0.6 mg tablet Take 2 tabs by mouth, followed by 1 tab one hour later for gout flare. - furosemide (LASIX) 40 mg tablet Take 1 tablet by mouth once daily as needed (edema, swelling). - hydrocortisone (HYTONE) 2. 5 % lotion Apply 1-2 times/ day PRN; selectively to the rash or lesions on face, neck, ears, hairline areas. Julian id direct application to eyelids. No current facility-administered medications for this visit. Objective BP 130/80 (BP Site: Left Arm, BP Positio n: Sitting, BP Cuff Size: Large Adult) Pulse 104 Temp 36.6 ?C (97.8 ?F) (Temporal Artery) Res p 28 Physical Exam Constitutional: General: He is not in acute distress. Appearance: He is not diaphoretic. Neck: Vascular: No JVD. Cardiovascular: Rate and Rhythm: Tachycardia present. Rhythm irregular. Heart sounds: S1 normal and S2 normal. No murmur. No gallop. Pulmonary: Effort: Respiratory distress present. Breath sounds: Wheezing, rhonchi and rales present. Chest: Chest wall: No tenderness. Abdominal: General: There is no distension. Palpations: Abdomen is soft. Musculoskeletal: Right lower leg: No edema. Left lower leg: No edema. Lymphadenopathy: Cervical: No cervical adenopathy. Neurological: General: No focal deficit present. Mental Status: He is alert. Feet:Shoes and socks removed, No deformities, ul cers, calluses, normal distal pulses, sensitive to 10 gm monofilament and nail s notable for Hypertrophic or Yellowish EKG RESULTS: normal sinus rhythm and marked sinus arrhythmia, inferior infarct pattern, no acute changes. Assessment and Plan 1. Transient atrial fibrillation (HCC) - ICD9: 4 27.31, ICD10: I48.91 (primary diagnosis) Inactive. - ECG COMPLETE 2. Bronchitis with bronchospasm - ICD9: 490, ICD10: J20.[address] Britt's consultation 12/13/19 reviewed. - ALBUTEROL SULFATE 2.5 MG/3 ML (0.083 %) SOLUTION FOR NEBUL IZATION 3. Pleuritic chest pain - ICD9: 786.52, ICD10: R07.81 Atypical chest pain, symptoms are not consistent with cardiac ischemia due to nonexertional nature of symptom possible etiology include lung disease or lung mass. - GABAPENTIN 300 MG CAPSULE Discussed medication dosage, usage, goals of therapy, and si de effects. 4. Type 2 diabetes mellitus with stage 3 chronic kidney dise ase, without long-term current use of insulin (HCC) - ICD9: 250.40, 585.3, ICD10: E11.22, N18.3 - Continue current medications 5. Chronic respiratory failure with hypoxia (HCC) - ICD9: 51 8.83, 799.02, ICD10: J96.11 I stressed importance of oxygen. During this patient visit I have spent approximately 2 5 minutes out of 45 in counseling regarding conditions, medications and coordinatin g care. Yair Moseley MD Referring Provider: YAIR MOSELEY [[id number]] Allergies As of Date: 12/21/2019 (No Known Allergies) Date Reviewed: 06/19/2019 Reviewed by: Ly Abdi Pest Control Operator - Fully Assessed Reason for Visit: 4 month follow-up [Other] Primary Visit Diagnosis:Transient atrial fibrillation (HCC) [I48.91] Other Visit Diagnoses:Bronchitis with bronchospasm [J20.9] Pleuritic chest pain [R07.81] Type 2 diabetes mellitus with stage 3 chronic kidney disease, without long-term current use of insulin (HCC) [E11.22, N18.3] Chronic respiratory failure with hypoxia (HCC) [J96.11] Order(s):ECG COMPLETE [ECG01] Order #: [id number] FUTURE albuterol (PROVENTIL) 2.5 mg /3 mL (0.083 %) nebulizer solut ionUse 3 mL via nebulizer every 6 hours as needed for Wheezing/Shortn ess of Breath. Use over 5-15minutes.Disp: 1 PackageRfl: 11 gabapentin (NEURONTIN) 300 mg capsuleTake 1 capsule by mouth daily at bedtime for 30 days. For pain.Disp: 30 capsuleRfl: 2 Prescriptions as of 12/21/2019 Sig: ALBUTEROL SULFATE 2.5 MG/3 ML* Use 3 mL via nebulizer every * LISINOPRIL 10 MG TABLET Take 1 tablet by mouth once d* METOPROLOL SUCCINATE ER 50 MG* Take 1 tablet by mouth once d * IPRATROPIUM BROMIDE 42 MCG (0* Use 2 Sprays in the nose twic * ALBUTEROL SULFATE HFA 90 MCG/* Inhale 2 Puffs as instructed * AMLODIPINE 10 MG TABLET Take 1 tablet by mouth once d* METFORMIN 500 MG TABLET Take 2 tablets by mouth daily* COLCHICINE 0.6 MG TABLET Take 2 tabs by mouth, followe* FUROSEMIDE 40 MG TABLET Take 1 tablet by mouth once d* HYDROCORTISONE 2.5 % LOTION Apply 1-2 times/ day PRN; dottie* GABAPENTIN 300 MG CAPSULE Take 1 capsule by mouth daily* Problem List As Of Date 12/21/2019 Noted Resolved Mixed hyperlipidemia [E78.2] More... Type 2 diabetes mellitus with stage 3 chronic k* More... Depressive disorder, not elsewhere classified [* 10/28/2011 More... Elevated prostate specific antigen (PSA) [R97.2* 10/28/2011 BPH w/o urinary obs/LUTS [N40.0] 09/15/2010 OVERWEIGHT [E66.9] 09/15/2010 GENERAL OSTEOARTHROSIS [M15.9] 02/03/2005 Depression with anxiety [F41.8] 02/03/2005 Hypertensive kidney disease with stage 3 chroni*05/05/2005 More... Bladder neck obstruction [N32.0] 05/21/2005 10/28/2011 BPH W URINARY OBS/LUTS [N40.1] 05/21/2005 10/28/2011 Hearing Loss [H91.90] 02/26/2009 AAA (abdominal aortic aneurysm) [I71.4] 09/17/2010 2 Nodule of left lung [R91.1] 09/17/2010 05/02/2015 More... BPH loc w/o ur obs/LUTS [N40.0] 06/24/2011 10/28/2011 Actinic Keratoses (Premalignant AK's) [L57.0] 01/26/201203/2015 Actinic skin damage [L57.8] 01/26/2012 04/10/2014 Solar Lentigines [L81.4] 01/26/2012 04/10/2014 Chronic rhinitis [J31.0] 02/15/2012 Other seborrheic keratosis [L82.1] 03/11/2012 03/27/2015 Hypertrophic scar [L91.0] 03/11/2012 04/10/2014 Scar condition and fibrosis of skin [L90.5] 03/11/201204/10 Xerosis cutis [L85.3] 09/29/2013 03/27/2015 BPH (benign prostatic hyperplasia) [N40.0] 04/10/2014 History of bladder cancer [Z85.51] 11/06/2014 Obesity, Class II, BMI 35-39.9 [E66.9] 02/27/2015 03/31/2019 Multiple thyroid nodules [E04.2] 02/27/2015 02/27/2015 Gout of big toe [M10.9] 06/03/2012 Physical debility [R53.81] 03/19/2016 04/16/2016 Actinic keratosis [L57.0] 08/05/2016 More... 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 [J98*08/25/2018 Obesity, Class I, BMI 30-34.9 [E66.9] 03/31/2019 Transient atrial fibrillation (HCC) [I48.91] 04/27/2019 Chronic respiratory failure with hypoxia (HCC) *08/09/2019 Sepsis due to Streptococcus pneumoniae without *04/27/2019 0 08/09/2019 History of DVT (deep vein thrombosis) [Z86.718] 06/02/2019 Prescriptions ordered this encounter Disp Refills Start End ALBUTEROL SULFATE 2.5 MG/3 ML (0.083* 1 Pa* 11 12/21/2019 Route: NEBULIZATION Sig: Use 3 mL via nebulizer every 6 hours as nee ded for Wheezing/Shortness of Breath. Use over 5-15minutes. GABAPENTIN 300 MG CAPSULE 30 c* 2 12/21/2019 01/20/2020 Route: ORAL Sig: Take 1 capsule by mouth daily at bedtime for 30 days. F or pain. Medications Discontinued During This Encounter Prescriptions - pantoprazole DR (PROTONIX) 40 mg tablet (Discontinued) Reported on 12/21/2019 - Ferrous Gluconate (FERGON) 324 mg (38 mg iron) tablet (Dis continued) Reported on 12/21/2019 - guaiFENesin (MUCINEX) 600 mg 12 hr tablet (Discontinued) Reported on 12/21/2019 - albuterol (PROVENTIL) 2.5 mg /3 mL (0.083 %) nebulizer solution (Discontinued) Use 3 mL via nebulizer every 6 hours as needed for Wheezing/ Shortness of Breath. Use over 5-15minutes. Disposition: Return in about 4 weeks (around 01/18/2020). Follow-up and Disposition History Recorded Encounter Status:Closed by YAIR MOSELEY MD on 12/21/19 cnpn on 2019-11-06 CNPN Telephone ([facility]) Normal 11-06-2019 [place] MICHAEL HOWARD ([id number]) 1935 M [facility] Date Time Provider Department () 11/06/19 YAIR MOSELEY During your visit today, we recorded the following informati on about you: Sharona Manohar MUSTAFA 11/06/2019 3:08 PM Signed Patient calling asking if he should have blood work completed. Please call him back once message has been addressed. Joanne Dozier APRN.CNP 11/06/2019 4:14 PM Signed Labs ordered JOSELITO Schmitt Cma 11/06/2019 4:18 PM Signed Patient is notified of all information and verbalizes unders tanding Allergies As of Date: 11/06/2019 (No Known Allergies) Date Reviewed: 06/19/2019 Reviewed by: Ly Abdi Cma - Fully Assessed Reason for Visit: Orders [681] Primary Visit Diagnosis:Mixed hyperlipidemia [E78.2] Other Visit Diagnoses:Essential hypertension [I10] Controlled type 2 diabetes mellitus without complication, without long-term current use of insulin (HCC) [E11.9] Order(s):LIPID PANEL BASIC [SQLIPB] Order #: [id number] FUTU RE HGB A1C [XDWSD4G] Order #: [id number] FUTURE COMP METABOLIC PANEL [SQCMP] Order #: [id number] FUTURE Prescriptions as of 11/06/2019 Sig: LISINOPRIL 10 MG TABLET Take 1 tablet by mouth once d* METOPROLOL SUCCINATE ER 50 MG* Take 1 tablet by mouth once d * IPRATROPIUM BROMIDE 42 MCG (0* Use 2 Sprays in the nose twic * ALBUTEROL SULFATE HFA 90 MCG/* Inhale 2 Puffs as instructed * AMLODIPINE 10 MG TABLET Take 1 tablet by mouth once d* METFORMIN 500 MG TABLET Take 2 tablets by mouth daily* ALBUTEROL SULFATE 2.5 MG/3 ML* Use 3 mL via nebulizer every * COLCHICINE 0.6 MG TABLET Take 2 tabs by mouth, followe* FUROSEMIDE 40 MG TABLET Take 1 tablet by mouth once d* PANTOPRAZOLE 40 MG TABLET,DEL* Take 1 tablet by mouth twice * FERROUS GLUCONATE 324 MG (38 * Take 1 tablet by mouth daily * MUCINEX 600 MG TABLET, EXTEND* Take 2 tablets by mouth twice * HYDROCORTISONE 2.5 % LOTION Apply 1-2 times/ day PRN; dottie* Problem List As Of Date 11/06/2019 Noted Resolved Mixed hyperlipidemia [E78.2] More... Diabetes mellitus type 2, controlled, without c* More... Depressive disorder, not elsewhere classified [* 10/28/2011 More... Elevated prostate specific antigen (PSA) [R97.2* 10/28/2011 BPH w/o urinary obs/LUTS [N40.0] 09/15/2010 OVERWEIGHT [E66.9] 09/15/2010 GENERAL OSTEOARTHROSIS [M15.9] 02/03/2005 Depression with anxiety [F41.8] 02/03/2005 Hypertension [I10] 05/05/2005 More... Bladder neck obstruction [N32.0] 05/21/2005 10/28/2011 BPH W URINARY OBS/LUTS [N40.1] 05/21/2005 10/28/2011 Hearing Loss [H91.90] 02/26/2009 AAA (abdominal aortic aneurysm) [I71.4] 09/17/2010 2 Nodule of left lung [R91.1] 09/17/2010 05/02/2015 More... BPH loc w/o ur obs/LUTS [N40.0] 06/24/2011 10/28/2011 Actinic Keratoses (Premalignant AK's) [L57.0] 01/26/201203/2015 Actinic skin damage [L57.8] 01/26/2012 04/10/2014 Solar Lentigines [L81.4] 01/26/2012 04/10/2014 Chronic rhinitis [J31.0] 02/15/2012 Other seborrheic keratosis [L82.1] 03/11/2012 03/27/2015 Hypertrophic scar [L91.0] 03/11/2012 04/10/2014 Scar condition and fibrosis of skin [L90.5] 03/11/201204/10 Xerosis cutis [L85.3] 09/29/2013 03/27/2015 BPH (benign prostatic hyperplasia) [N40.0] 04/10/2014 Bladder cancer (HCC) [C67.9] 11/06/2014 Obesity, Class II, BMI 35-39.9 [E66.9] 02/27/2015 03/31/2019 Multiple thyroid nodules [E04.2] 02/27/2015 02/27/2015 Gout of big toe [M10.9] 06/03/2012 Physical debility [R53.81] 03/19/2016 04/16/2016 Actinic keratosis [L57.0] 08/05/2016 More... Seborrheic dermatitis [L21.9] 01/26/2012 Bronchitis with bronchospasm [J20.9] 01/29/2018 CKD (chronic kidney disease) stage 3, GFR 30-59*01/30/2018 Cavitating mass of lower lobe of left lung [J98*08/25/2018 Obesity, Class I, BMI 30-34.9 [E66.9] 03/31/2019 Transient atrial fibrillation (HCC) [I48.91] 04/27/2019 Chronic respiratory failure with hypoxia (HCC) *08/09/2019 Sepsis due to Streptococcus pneumoniae without *04/27/2019 0 08/09/2019 Acute deep vein thrombosis (DVT) of proximal ve*06/02/2019 Encounter Status:Closed by LY ABDI CMA on 11/06/19 cnpn on 2019-09-28 [facility] Telephone ([facility]) Normal 09-28-2019 [place] MICHAEL Olivares ([id number]) 1935 M [facility] Date Time Provider Department ([id number]) 09/28/19 LÓPEZ SAUCEDA (KEVIN) [employer] During your visit today, we recorded the following informati on about you: López Sauceda MD 09/28/2019 9:58 AM Addendum Geriatric Emergency Needs Assessment Called patient/family at September 28, 2019 on 9:44 AM by telephone at [phone]. Contact made with patient: Yes Patient identified by name and . Discussed questions with patient. Patient declines being sick right now. He does feel th at he has to clear his throat more often. DELAYED OR DEFERRED MEDICAL CARE Have you missed any in-person medical appointments or had them cancelled? No Have you had to delay any type of surgery or procedure? No Have you postponed visiting a doctor due to worries about co ronavirus? No SOCIAL INTERACTION AND ISOLATION How do you spend most of your days since the coronavirus o utbreak hit [place]? - Spending time with his Have you had any social activities restricted or cance lled? (if they ask for examples could be senior [address], museum, clubs, gatherings with friends, family parties, mandaen services, etc) - Yes Due to the coronavirus, have you felt isolated from others? No In the past week, how many visitors have you had at your randi e? No In the past week, how much of the time d o you feel isolated from others? Never MOOD SCREENING Have you recently felt down, depressed, or hopeless? No Have you recently felt nervous, anxious, or on edge? No How worried are you about coronavirus? Somewhat worried PHYSICAL HEALTH AND WELLBEING Do you normally exercise or do some type of regular physical activity? - Yes, treadmill Do you have any new health concerns that you need addressed? If so, what? No Do you have any concerns about your memory you w ould like to be addressed? No MEDICATIONS AND MEDICAL SUPPLIES Usually, do you have any difficulty obtaining, affording, or managing your medications? No If so, have you been able to find help with obtaining and ma naging your medications during the coronavirus outbreak? Not Applicable Do you have all medical supplies you need currently? ( Including home oxygen, wound care supplies, incontinence supplies, etc). Not Applic able ?Do you have any questions about taking your medicatio ns or which medication you should be on?? No ?Do you need any medication refills at this time, including any of the medications you might take only when needed?? No BASIC NEEDS (SAFETY, FOOD, INCOME AND BENEFITS) Do you normally receive any help with day-to-day activities? Such as cooking, cleaning, bathing, or shopping? Yes, helps Due to the coronavirus outbreak, are you worried your food will run out before you are able to buy more? No Is anyone helping you with groceries/shopping at this time? Yes. Who? Are you worried about income or your financial s ecurity in the setting of the coronavirus? No Do you have any concerns about any benefits or p rograms you depend on such as Meals on Wheels or a day health program? No Do you feel safe at home? Yes Has anyone prevented you from getting things you need (food, clothes, medication, glasses, hearing aids, or medical ca re) or from being with people you wanted to be with? No ADVANCE CARE PLANNING Have you ever planned for fu ture healthcare decisions with a power of trademark attorney, living will, or advanced dir ectives? Yes - patient states his handles that. - If yes, then have you shared those records with your docto r? Yes Do you have any other thoughts or comments to share? No PHYSICAL LOCATION AND CONTACTS Where do you live? house Does anyone live with you? Yes. Who? Do you have any children? Yes How have you been in contact with them? phone calls Do you normally help care for someone else? No Usually, do you need help with transportation? No Do you have access to the internet, a computer, or a smart p cheng? Yes Are you actively using MyChart? If not, do you want help set ting it up? No Where do you get information about coronavirus (can be multi ple) News López Sauceda MD September 28, 2019 9:44 AM [id number] Attending Note I have reviewed the documentation and verified the findings in the note as written. Any additions or changes are noted in bold/italics. This service has been performed by a resident without the pr esence of a teaching physician. I was available throughout the encounter , reviewed and discussed daigle elements with the resident at the time of the visit. I was present in the clinic throughout the ent elzbieta clinic encounter. I agree with the findings and plan of care. This Team Access Model visit is a phone encounter. It requir ed patient-provider interaction for the medical decision making as documented above. Michael Howard has consented to this telephone encounter. Total Time Spent: 5-10 minutes Needs ACP visit, no AD on file in Epic CC advanced care planning Geriatric assessment (Z01.89) Encounter for geriatric assessment (primary encount er diagnosis) (Z71.89) Counseling regarding advanced care planning and goa ls of care Signature: Anuj Trinidad MD Staff, Geriatric Internal Medicine [id number] Allergies As of Date: 09/28/2019 (No Known Allergies) Date Reviewed: 06/19/2019 Reviewed by: Ly Abdi Pest Control Operator - Fully Assessed Reason for Visit: Telemedicine [[id number]] Geriatric Assessment [[id number]] Primary Visit Diagnosis:Encounter for geriatric assessment [ Z01.89] Other Visit Diagnosis:Counseling regarding advanced care p minna and goals of care [Z71.89] Prescriptions as of 09/28/2019 Sig: LISINOPRIL 10 MG TABLET Take 1 tablet by mouth once d* METOPROLOL SUCCINATE ER 50 MG* Take 1 tablet by mouth once d * IPRATROPIUM BROMIDE 42 MCG (0* Use 2 Sprays in the nose twic * ALBUTEROL SULFATE HFA 90 MCG/* Inhale 2 Puffs as instructed * AMLODIPINE 10 MG TABLET Take 1 tablet by mouth once d* METFORMIN 500 MG TABLET Take 2 tablets by mouth daily* ALBUTEROL SULFATE 2.5 MG/3 ML* Use 3 mL via nebulizer every * COLCHICINE 0.6 MG TABLET Take 2 tabs by mouth, followe* FUROSEMIDE 40 MG TABLET Take 1 tablet by mouth once d* PANTOPRAZOLE 40 MG TABLET,DEL* Take 1 tablet by mouth twice * FERROUS GLUCONATE 324 MG (38 * Take 1 tablet by mouth daily * MUCINEX 600 MG TABLET, EXTEND* Take 2 tablets by mouth twice * HYDROCORTISONE 2.5 % LOTION Apply 1-2 times/ day PRN; dottie* Problem List As Of Date 09/28/2019 Noted Resolved Mixed hyperlipidemia [E78.2] More... Diabetes mellitus type 2, controlled, without c* More... Depressive disorder, not elsewhere classified [* 10/28/2011 More... Elevated prostate specific antigen (PSA) [R97.2* 10/28/2011 BPH w/o urinary obs/LUTS [N40.0] 09/15/2010 OVERWEIGHT [E66.9] 09/15/2010 GENERAL OSTEOARTHROSIS [M15.9] 02/03/2005 Depression with anxiety [F41.8] 02/03/2005 Hypertension [I10] 05/05/2005 More... Bladder neck obstruction [N32.0] 05/21/2005 10/28/2011 BPH W URINARY OBS/LUTS [N40.1] 05/21/2005 10/28/2011 Hearing Loss [H91.90] 02/26/2009 AAA (abdominal aortic aneurysm) [I71.4] 09/17/2010 2 Nodule of left lung [R91.1] 09/17/2010 05/02/2015 More... BPH loc w/o ur obs/LUTS [N40.0] 06/24/2011 10/28/2011 Actinic Keratoses (Premalignant AK's) [L57.0] 01/26/201203/2015 Actinic skin damage [L57.8] 01/26/2012 04/10/2014 Solar Lentigines [L81.4] 01/26/2012 04/10/2014 Chronic rhinitis [J31.0] 02/15/2012 Other seborrheic keratosis [L82.1] 03/11/2012 03/27/2015 Hypertrophic scar [L91.0] 03/11/2012 04/10/2014 Scar condition and fibrosis of skin [L90.5] 03/11/201204/10 Xerosis cutis [L85.3] 09/29/2013 03/27/2015 BPH (benign prostatic hyperplasia) [N40.0] 04/10/2014 Bladder cancer (HCC) [C67.9] 11/06/2014 Obesity, Class II, BMI 35-39.9 [E66.9] 02/27/2015 03/31/2019 Multiple thyroid nodules [E04.2] 02/27/2015 02/27/2015 Gout of big toe [M10.9] 06/03/2012 Physical debility [R53.81] 03/19/2016 04/16/2016 Actinic keratosis [L57.0] 08/05/2016 More... Seborrheic dermatitis [L21.9] 01/26/2012 Bronchitis with bronchospasm [J20.9] 01/29/2018 CKD (chronic kidney disease) stage 3, GFR 30-59*01/30/2018 Cavitating mass of lower lobe of left lung [J98*08/25/2018 Obesity, Class I, BMI 30-34.9 [E66.9] 03/31/2019 Transient atrial fibrillation (HCC) [I48.91] 04/27/2019 Chronic respiratory failure with hypoxia (HCC) *08/09/2019 Sepsis due to Streptococcus pneumoniae without *04/27/2019 0 08/09/2019 Acute deep vein thrombosis (DVT) of proximal ve*06/02/2019 Encounter Status:Closed by LÓPEZ SAUCEDA MD on 09/28/19 cnco on 2019-09-25 CNCO Letter Text Normal 09-25-2019 [facility] ([id number]) progress on 2019-07 PROGRESS HNO ID: [id number] Normal 08-09-2019 [facility] Author: Yair Moseley [place] ([id number]) Service: ? Author Type: Physician Type: Progress Notes Filed: 08/09/2019 9:18 AM Note Text: This note was created using Zoe Majeste. Subjective This Team Access Model visit is a phone encounter. It requir ed patient-provider interaction for the medical decision making as documented below. Michael Howard was doing reasonably well. His edema was minim al and only on his left foot. He had no leg pain. He was wearing brianna mendoza stockings. He was taking his medications and needed refills. He was scheduled to follow up with Dr. Britt today. He had no new concerns. Review of Systems Constitutional: Negative for chills, diaphoresis and fever. HENT: Positive for postnasal drip. Respiratory: Negative for wheezing. Usual dyspnea on exertion and cough. Cardiovascular: Negative for chest pain, palpitations and le g swelling. Gastrointestinal: Negative for abdominal pain and blood in s tool. Musculoskeletal: Negative for myalgias. Neurological: Negative. ACTIVE PROBLEM LIST Mixed Hyperlipidemia Diabetes Mellitus Type 2, Controlled, Without Complications (Hcc) Generalized Osteoarthrosis, Unspecified Site Depression With Anxiety Hypertension Hearing Loss Chronic rhinitis Bph (Benign Prostatic Hyperplasia) Bladder Cancer (Hcc) Gout of Big Toe Actinic Keratosis Seborrheic Dermatitis Bronchitis With Bronchospasm Ckd (Chronic Kidney Disease) Stage 3, Gfr 30-59 Ml/Min (Hcc) Cavitating Mass of Lower Lobe of Left Lung Obesity, Class I, Bmi 30-34.9 Transient Atrial Fibrillation (Hcc) Chronic Respiratory Failure With Hypoxia (Hcc) Acute Deep Vein Thrombosis (Dvt) of Proximal Vein of Both Lo wer Extremities (Hcc) Current Outpatient Medications Medication Sig - enoxaparin (LOVENOX) 80 mg/0.8 mL Inject 0.8 mL subcutaneo usly q 12 HR. - colchicine 0.6 mg tablet Take 2 tabs by mouth, followed by 1 tab one hour later for gout flare. - furosemide (LASIX) 40 mg tablet Take 1 tablet by mouth onc e daily as needed (edema, swelling). - lisinopril (ZESTRIL, PRINIVIL) 10 mg tablet Take 1 tablet by mouth once daily. - pantoprazole DR (PROTONIX) 40 mg tablet Take 1 tablet by m outh twice daily. Take on empty stomach, 1/2 hr before meal. - metoprolol succinate ER (TOPROL XL) 50 mg 24 hr tablet Suhail e 1 tablet by mouth once daily. - Ferrous Gluconate (FERGON) 324 mg (38 mg iron) tablet Take 1 tablet by mouth daily with breakfast. - guaiFENesin (MUCINEX) 600 mg 12 hr tablet Take 2 tablets b y mouth twice daily. - ipratropium bromide (ATROVENT) 42 mcg (0.06 %) nasal spray Use 2 Sprays in the nose twice daily as needed (nasal drainage). - albuterol HFA (PROVENTIL HFA, VENTOLIN HFA) 90 mcg/actuati on inhaler Inhale 2 Puffs as instructed every 6 hours as needed (cough, wheezing). - hydrocortisone (HYTONE) 2.5 % lotion Apply 1-2 times/ day PRN; selectively to the rash or lesions on face, neck, ears, hair line areas. Avoid direct application to eyelids. - amLODIPine (NORVASC) 10 mg tablet Take 1 tablet by mouth o nce daily. - metFORMIN (GLUCOPHAGE) 500 mg tablet Take 2 tablets by jacob th daily with breakfast. - albuterol (PROVENTIL) 2.5 mg /3 mL (0.083 %) nebulizer saida ution Use 3 mL via nebulizer every 6 hours as needed for Wheezing/Shortness of Breath. Use over 5-15minutes. No current facility-administered medications for this visit. Objective There were no vitals taken for this visit. Physical Exam He was hard of hearing but conversant in full sentences. No respiratory distress or cough noted. He was alert and coherent. Assessment and Plan 1. Acute deep vein thrombosis (DVT) of proximal vein of both lower extremities (HCC) - ICD9: 453.41, ICD10: I82.4Y3 (primary di agnosis) Finish and discontinue LOVENOX. Call for increased leg edema . Continue compression stockings and stay active. 2. Essential hypertension - ICD9: 401.9, ICD10: I10 - good control - LISINOPRIL 10 MG TABLET - METOPROLOL SUCCINATE ER 50 MG TABLET,EXTENDED RELEASE 24 H R - AMLODIPINE 10 MG TABLET 3. Chronic rhinitis - ICD9: 472.0, ICD10: J31.0 Controlled. - IPRATROPIUM BROMIDE 42 MCG (0.06 %) NASAL SPRAY 4. Bronchitis with bronchospasm - ICD9: 490, ICD10: J20.9 Stable. - ALBUTEROL SULFATE HFA 90 MCG/ACTUATION AEROSOL INHALER - ALBUTEROL SULFATE 2.5 MG/3 ML (0.083 %) SOLUTION FOR NEBUL IZATION 5. Controlled type 2 diabetes mellitus without complication, without long-term current use of insulin (HCC) - ICD9: 250.00, ICD10 : E11.9 Controlled. - Continue current medications - METFORMIN 500 MG TABLET 6. Transient atrial fibrillation (HCC) - ICD9: 427.31, ICD10 : I48.91 Asymptomatic. He wanted refills transferred to [facility]. He was instructed to do fasting labs when feasible. During this patient visit I have spent approximately 25 maxime aditya in counseling regarding and coordinating care. MD richy Guthrie on 2019-07-20 CNPN Telephone (FAMPWS) Normal 07-20-2019 [place] MICHAEL Olivares ([id number]) 1935 M [facility] Date Time Provider Department ([id number]) 07/20/19 YAIR MOSELEY During your visit today, we recorded the following informati on about you: Nkechi Batool MUSTAFA 07/20/2019 9:38 AM Signed Pt had appt 06/19/19 for dvt f/u and is ta gianna Lovenox injections. Pt is calling to ask if he is to continue Lovenox injections because if so he needs a refill. Pt reports he has enough for 2 more days. Pt injects lovenox bid. Please review and advise. Nkechiamrita Dozier APRN.MELONY 07/20/2019 9:45 AM Signed He will need to be on Lovenox for a total of 3 months, i ch would be until 08/29. Refill sent Joanne Dozier APRN.MELONY Hernandez LPN 07/20/2019 10:18 AM Signed Spoke with patient and information listed below given. Syl Hernandez LPN Allergies As of Date: 07/20/2019 (No Known Allergies) Date Reviewed: 06/19/2019 Reviewed by: Ly Abid Pest Control Operator - Fully Assessed Reason for Visit: lovenox question [Other] Visit Diagnosis:Chronic anticoagulation [Z79.01] Order(s):enoxaparin (LOVENOX) 80 mg/0.8 mLInject 0.8 mL buckner bcutaneously q 12 HR.Disp: 48 mLRfl: 0 Prescriptions as of 07/20/2019 Sig: ENOXAPARIN 80 MG/0.8 ML SUBCU* Inject 0.8 mL subcutaneously * COLCHICINE 0.6 MG TABLET Take 2 tabs by mouth, followe* FUROSEMIDE 40 MG TABLET Take 1 tablet by mouth once d* LISINOPRIL 10 MG TABLET Take 1 tablet by mouth once d* PANTOPRAZOLE 40 MG TABLET,DEL* Take 1 tablet by mouth twice * METOPROLOL SUCCINATE ER 50 MG* Take 1 tablet by mouth once d * FERROUS GLUCONATE 324 MG (38 * Take 1 tablet by mouth daily * MUCINEX 600 MG TABLET, EXTEND* Take 2 tablets by mouth twice * IPRATROPIUM BROMIDE 42 MCG (0* Use 2 Sprays in the nose twic * ALBUTEROL SULFATE HFA 90 MCG/* Inhale 2 Puffs as instructed * HYDROCORTISONE 2.5 % LOTION Apply 1-2 times/ day PRN; dottie* AMLODIPINE 10 MG TABLET Take 1 tablet by mouth once d* METFORMIN 500 MG TABLET Take 2 tablets by mouth daily* ALBUTEROL SULFATE 2.5 MG/3 ML* Use 3 mL via nebulizer every * Problem List As Of Date 07/20/2019 Noted Resolved Mixed hyperlipidemia [E78.2] More... Diabetes mellitus type 2, controlled, without c* More... Depressive disorder, not elsewhere classified [* 10/28/2011 More... Elevated prostate specific antigen (PSA) [R97.2* 10/28/2011 BPH w/o urinary obs/LUTS [N40.0] 09/15/2010 OVERWEIGHT [E66.9] 09/15/2010 GENERAL OSTEOARTHROSIS [M15.9] 02/03/2005 Depression with anxiety [F41.8] 02/03/2005 Hypertension [I10] 05/05/2005 More... Bladder neck obstruction [N32.0] 05/21/2005 10/28/2011 BPH W URINARY OBS/LUTS [N40.1] 05/21/2005 10/28/2011 Hearing Loss [H91.90] 02/26/2009 AAA (abdominal aortic aneurysm) [I71.4] 09/17/2010 2 Nodule of left lung [R91.1] 09/17/2010 05/02/2015 More... BPH loc w/o ur obs/LUTS [N40.0] 06/24/2011 10/28/2011 Actinic Keratoses (Premalignant AK's) [L57.0] 01/26/201203/2015 Actinic skin damage [L57.8] 01/26/2012 04/10/2014 Solar Lentigines [L81.4] 01/26/2012 04/10/2014 Chronic rhinitis [J31.0] 02/15/2012 Other seborrheic keratosis [L82.1] 03/11/2012 03/27/2015 Hypertrophic scar [L91.0] 03/11/2012 04/10/2014 Scar condition and fibrosis of skin [L90.5] 03/11/201204/10 Xerosis cutis [L85.3] 09/29/2013 03/27/2015 BPH (benign prostatic hyperplasia) [N40.0] 04/10/2014 Bladder cancer (HCC) [C67.9] 11/06/2014 Obesity, Class II, BMI 35-39.9 [E66.9] 02/27/2015 03/31/2019 Multiple thyroid nodules [E04.2] 02/27/2015 02/27/2015 Gout of big toe [M10.9] 06/03/2012 Physical debility [R53.81] 03/19/2016 04/16/2016 Actinic keratosis [L57.0] 08/05/2016 More... Seborrheic dermatitis [L21.9] 01/26/2012 Bronchitis with bronchospasm [J20.9] 01/29/2018 CKD (chronic kidney disease) stage 3, GFR 30-59*01/30/2018 Cavitating mass of lower lobe of left lung [J98*08/25/2018 Obesity, Class I, BMI 30-34.9 [E66.9] 03/31/2019 Transient atrial fibrillation (HCC) [I48.91] 04/27/2019 Acute respiratory failure with hypoxia (HCC) [J*04/27/2019 Sepsis due to Streptococcus pneumoniae without *04/27/2019 Acute deep vein thrombosis (DVT) of proximal ve*06/02/2019 Prescriptions ordered this encounter Disp Refills Start End ENOXAPARIN 80 MG/0.8 ML SUBCUTANEOUS* 48 mL 0 07/20/201908/2019 Route: SUBCUTANEOUS Sig: Inject 0.8 mL subcutaneously q 12 HR. Medications Discontinued During This Encounter enoxaparin (LOVENOX) 80 mg/0.8 mL sy* 48 mL 1 06/16/20192019 Route: SUBCUTANEOUS Sig: Inject 0.8 mL subcutaneously q 12 HR. Disc: Reason for discontinue is not on file. Encounter Status:Closed by SYL HERNANDEZ LPN on 07/20/19 obsolete on 2019-06 OBSOLETE Refill (INTMWS) Normal 07-11-[address] [facility] ALEKSANDERMICHAEL VAZ ([id number]) 1935 M [facility] Date Time Provider Department ([id number]) 07/11/19 YAIR MOSELEY INTMWS During your visit today, we recorded the following informati on about you: Patrizia Little LPN 07/11/2019 10:13 AM Signed Patient has been identified by name and date of : Yes Patient phones for refill(s): Pending Prescriptions Disp Refills COLCHICINE 0.6 MG TABLET 3 tablet 5 Sig: Take 2 tabs by mouth, followed by 1 tab one hour late r for gout flare. JULES: No FUROSEMIDE 40 MG TABLET 30 tablet 5 Sig: Take 1 tablet by mouth once daily as needed. JULES: No Date of last office visit in primary care: 06/19/2019 Last 2 Encounter Wt Readings: Date: Wt: 06/19/2019 96.2 kg (212 lb) 05/30/2019 96.6 kg (213 lb) Previous labs/tests for medication: Blood Counts: WBC (k/uL) Date Value 08/05/2018 6.54 RBC (m/uL) Date Value 08/05/2018 4.19 Hematocrit (%) Date Value 08/05/2018 40.6 Hemoglobin (g/dL) Date Value 07/01/2019 11.3 Platelet Count (k/uL) Date Value 08/05/2018 196 Please advise. Thank you. Patrizia Little LPN Allergies As of Date: 07/11/2019 (No Known Allergies) Date Reviewed: 06/19/2019 Reviewed by: Ly Abdi Pest Control Operator - Fully Assessed Reason for Visit: Refill Request [94] Primary Visit Diagnosis:Gout of big toe [M10.9] Other Visit Diagnosis:Bilateral lower extremity edema [R60.0 ] Order(s):colchicine 0.6 mg tabletTake 2 tabs by mouth, followed by 1 tab one hour later for gout flare.Disp: 3 tabletRfl: 2 furosemide (LASIX) 40 mg tabletTake 1 tablet by mouth once d aily as needed (edema, swelling).Disp: 30 tabletRfl: 5 Prescriptions as of 07/11/2019 Sig: COLCHICINE 0.6 MG TABLET Take 2 tabs by mouth, followe* FUROSEMIDE 40 MG TABLET Take 1 tablet by mouth once d* LISINOPRIL 10 MG TABLET Take 1 tablet by mouth once d* PANTOPRAZOLE 40 MG TABLET,DEL* Take 1 tablet by mouth twice * METOPROLOL SUCCINATE ER 50 MG* Take 1 tablet by mouth once d * ENOXAPARIN 80 MG/0.8 ML SUBCU* Inject 0.8 mL subcutaneously * FERROUS GLUCONATE 324 MG (38 * Take 1 tablet by mouth daily * MUCINEX 600 MG TABLET, EXTEND* Take 2 tablets by mouth twice * IPRATROPIUM BROMIDE 42 MCG (0* Use 2 Sprays in the nose twic * ALBUTEROL SULFATE HFA 90 MCG/* Inhale 2 Puffs as instructed * HYDROCORTISONE 2.5 % LOTION Apply 1-2 times/ day PRN; dottie* AMLODIPINE 10 MG TABLET Take 1 tablet by mouth once d* METFORMIN 500 MG TABLET Take 2 tablets by mouth daily* ALBUTEROL SULFATE 2.5 MG/3 ML* Use 3 mL via nebulizer every * Problem List As Of Date 07/11/2019 Noted Resolved Mixed hyperlipidemia [E78.2] More... Diabetes mellitus type 2, controlled, without c* More... Depressive disorder, not elsewhere classified [* 10/28/2011 More... Elevated prostate specific antigen (PSA) [R97.2* 10/28/2011 BPH w/o urinary obs/LUTS [N40.0] 09/15/2010 OVERWEIGHT [E66.9] 09/15/2010 GENERAL OSTEOARTHROSIS [M15.9] 02/03/2005 Depression with anxiety [F41.8] 02/03/2005 Hypertension [I10] 05/05/2005 More... Bladder neck obstruction [N32.0] 05/21/2005 10/28/2011 BPH W URINARY OBS/LUTS [N40.1] 05/21/2005 10/28/2011 Hearing Loss [H91.90] 02/26/2009 AAA (abdominal aortic aneurysm) [I71.4] 09/17/2010 2 Nodule of left lung [R91.1] 09/17/2010 05/02/2015 More... BPH loc w/o ur obs/LUTS [N40.0] 06/24/2011 10/28/2011 Actinic Keratoses (Premalignant AK's) [L57.0] 01/26/201203/2015 Actinic skin damage [L57.8] 01/26/2012 04/10/2014 Solar Lentigines [L81.4] 01/26/2012 04/10/2014 Chronic rhinitis [J31.0] 02/15/2012 Other seborrheic keratosis [L82.1] 03/11/2012 03/27/2015 Hypertrophic scar [L91.0] 03/11/2012 04/10/2014 Scar condition and fibrosis of skin [L90.5] 03/11/201204/10 Xerosis cutis [L85.3] 09/29/2013 03/27/2015 BPH (benign prostatic hyperplasia) [N40.0] 04/10/2014 Bladder cancer (HCC) [C67.9] 11/06/2014 Obesity, Class II, BMI 35-39.9 [E66.9] 02/27/2015 03/31/2019 Multiple thyroid nodules [E04.2] 02/27/2015 02/27/2015 Gout of big toe [M10.9] 06/03/2012 Physical debility [R53.81] 03/19/2016 04/16/2016 Actinic keratosis [L57.0] 08/05/2016 More... Seborrheic dermatitis [L21.9] 01/26/2012 Bronchitis with bronchospasm [J20.9] 01/29/2018 CKD (chronic kidney disease) stage 3, GFR 30-59*01/30/2018 Cavitating mass of lower lobe of left lung [J98*08/25/2018 Obesity, Class I, BMI 30-34.9 [E66.9] 03/31/2019 Transient atrial fibrillation (HCC) [I48.91] 04/27/2019 Acute respiratory failure with hypoxia (HCC) [J*04/27/2019 Sepsis due to Streptococcus pneumoniae without *04/27/2019 Acute deep vein thrombosis (DVT) of proximal ve*06/02/2019 Prescriptions ordered this encounter Disp Refills Start End COLCHICINE 0.6 MG TABLET 3 ta* 2 07/11/2019 Sig: Take 2 tabs by mouth, followed by 1 tab one hour late r for gout flare. FUROSEMIDE 40 MG TABLET 30 t* 5 07/11/2019 Route: ORAL Sig: Take 1 tablet by mouth once daily as needed (edema, swe lling). Medications Discontinued During This Encounter furosemide (LASIX) 40 mg tablet 05/30/2019 07/11/2019 Class: Med Update Route: ORAL Sig: Take 1 tablet by mouth once daily as needed. Disc: Reason for discontinue is not on file. Encounter Status:Closed by YAIR MOSELEY MD on 07/11/19 hemoglobin on 07-01 Hemoglobin (Bld) 11.3 13.0-17.0 g/dL Low 07-01-2019 [facility] [Mass/Vol] [place] ([id number]) Comment: Performed By: #### UACR #### [facility] [address], [place] [address] hemoglobin on 06-23 Hemoglobin (Bld) 11.1 13.0-17.0 g/dL Low 06-23-2019 [facility] [Mass/Vol] [place] ([id number]) Comment: Performed By: #### UACR #### [facility] [address], [place] [address] progress on 2019-06 PROGRESS HNO ID: [id number] Normal 06-19-2019 [facility] Author: Joanne Ball) [facility] ([id number]) Service: ? Author Type: Nurse Practitioner Type: Progress Notes Filed: 06/19/2019 9:15 AM Note Text: CC: Patient presents with: follow up swelling HPI Michael Howard is a 84 year old male who presents today for f ollow-up. He had developed DVT during hospital admission for GI bleed in April. He was started on Lovenox injections, will be on for a total of 3 months. Patient denies any usual or excessive bleeding including cheo ck/bloody stools, rectal bleeding, hematuria, bleeding gums. Also trupti es worsening SOB, chest pain, palpitations, dizziness, lightheadedness, f eeling faint, passing out, falling. Leg swelling has improved somewhat, al ways better in the mornings and worse as the day goes on. Has been wearing compression socks but doesn't seem to make a difference however legs fe el better when he wears them. He was also seen 2 weeks ago for acute gout right third toe. Started on Colchicine and resolved after a few days. REVIEW OF SYSTEMS See HPI PAST MEDICAL HISTORY Diagnosis Date - AAA (abdominal aortic aneurysm) (HCC) 09/17/2010 - ANXIETY STATE NOS 02/03/2005 - Bladder cancer (HCC) 11/06/2014 - Bladder mass 03/27/2014 - Bladder neck obstruction 05/21/2005 - Cavitating mass of lower lobe of left lung 08/25/2018 - CKD (chronic kidney disease) stage 3, GFR 30-59 ml/min (HC C) 01/30/2018 - Depressive disorder, not elsewhere classified - Elevated prostate specific antigen (PSA) - Gout of big toe 06/03/2012 - Hearing loss 02/26/2009 - Hematuria 04/10/2014 - HYPERTENSION NOS 05/05/2005 - Hypertrophy of prostate without urinary obstruction and ot her lower urinary tract symptoms (LUTS) - HYPERTROPHY PROSTATE WITH OBST 05/21/2005 - Nodule of left lung 09/17/2010 - Obesity, unspecified - Other and unspecified hyperlipidemia - Pneumonia 02/05/2017 - S/P AAA (abdominal aortic aneurysm) repair 02/27/2015 - Seborrheic dermatitis 01/26/2012 - Type II or unspecified type diabetes mellitus without ment ion of complication, not stated as uncontrolled PAST SURGICAL HISTORY Procedure Laterality Date - BRONCHOSCOPY Left 10/26/2018 - COLONOSCOPY - DIAGNOSTIC 02/05/2004 - CT NEEDLE BIOPSY 02/09/2011 Left lung nodule, non diagnostic - CYSTOSCOPY 03/05/2015 - CYSTOSCOPY WITH BLADDER BIOPSY 04/25/2014 - EGD 02/05/2004 - OP FEM ART EXPOS AORT PROSTH 10/15/2010 AAA WITH STENT GRAFT - PAST SURGICAL HISTORY OF 08/2015 skin cancer lesion removal - S VANGUARD PARTIAL KNEE Bilateral 01/2009 bilateral - SIGMOIDOSCOPY FLEX DIAG 06/23/1989 Sigmoidoscopy - TRANSURETHRAL ELEC-SURG PROSTATECTOM 06/2005 TURP ALLERGIES Patient has no known allergies. MEDICATIONS enoxaparin (LOVENOX) 80 mg/0.8 mL syrg Inject 0.8 mL subcuta neously q 12 HR. colchicine 0.6 mg tablet Take 2 tabs by mouth, followed by 1 tab one hour later for gout flare. pantoprazole DR (PROTONIX) 40 mg tablet Take 1 tablet by jacob th twice daily. Take on empty stomach, 1/2 hr before meal. sucralfate (CARAFATE) 1 gram tablet Take 1 tablet by mouth b efore meals and at bedtime. Ferrous Gluconate (FERGON) 324 mg (38 mg iron) tablet Take 1 tablet by mouth daily with breakfast. furosemide (LASIX) 40 mg tablet Take 1 tablet by mouth once daily as needed. lisinopril (ZESTRIL, PRINIVIL) 10 mg tablet Take 1 tablet by mouth once daily. metoprolol succinate ER (TOPROL XL) 50 mg 24 hr tablet Take 1 tablet by mouth once daily. guaiFENesin (MUCINEX) 600 mg 12 hr tablet Take 2 tablets by mouth twice daily. ipratropium bromide (ATROVENT) 42 mcg (0.06 %) nasal spray U se 2 Sprays in the nose twice daily as needed (nasal drainage). albuterol HFA (PROVENTIL HFA, VENTOLIN HFA) 90 mcg/actuation inhaler Inhale 2 Puffs as instructed every 6 hours as needed (cough, wheezing). hydrocortisone (HYTONE) 2.5 % lotion Apply 1-2 times/ day KS N; selectively to the rash or lesions on face, neck, ears, hairline areas. Avoid direct application to eyelids. amLODIPine (NORVASC) 10 mg tablet Take 1 tablet by mouth onc e daily. metFORMIN (GLUCOPHAGE) 500 mg tablet Take 2 tablets by mouth daily with breakfast. albuterol (PROVENTIL) 2.5 mg /3 mL (0.083 %) nebulizer solut ion Use 3 mL via nebulizer every 6 hours as needed for Wheezing/Shortness of Breath. Use over 5-15minutes. Aspirin 81 mg ORAL Tab Take 1 tablet by mouth once daily. FAMILY HISTORY Problem Relation Age of Onset - Cancer Mother age 89 - Coronary Artery Disease Father age 84 - None No Family History Lung disease or lung cancer. Social History Tobacco Use - Smoking status: Former Smoker Years: 30.00 Types: Cigars Last attempt to quit: 08/23/2013 Years since quittin.8 - Smokeless tobacco: Never Used - Tobacco comment: I smoked cigars, never cigarettes. Substance Use Topics - Alcohol use: Yes Alcohol/week: 10.0 standard drinks Types: 1 Glasses of Wine (5oz), 2 Cans of Beer (12oz), 1 Mix ed Drinks per week - Drug use: No PHYSICAL EXAM BP 138/80 Pulse (!) 54 Temp 36.6 ?C (97.9 ?F) (Temporal) Resp 16 Wt 96.2 kg (212 lb) SpO2 95% BMI 32.23 kg/m? General Appearance: well appearing, in no acute distress, al ert Lungs: Rhonchi throughout. Clears somewhat with cough. Good air exchange. No rales or wheezing. Heart: RRR without murmur, gallop, or rubs. No ectopy Ext: 1+ pitting edema to BLE, L > R, 1+ distal pulses ASSESSMENT/PLAN: 1. Acute deep vein thrombosis (DVT) of proximal vein of both lower extremities (HCC) - ICD9: 453.41, ICD10: I82.4Y3 (primary di agnosis) Doing well on Lovenox, no concerning symptoms or exam findin gs for recurrent GI bleed. Weekly hemoglobin trending up. If this c ontinues can stop checking after the next two. Follow-up with PCP in [place] as scheduled or sooner as needed. 2. Bilateral lower extremity edema - ICD9: 782.3, ICD10: R60 .0 Stable. Wear compression socks, keeps legs elevated, avoid p rolonged sitting/standing. Has Lasix to take as needed if above measu res are not working. 3. Chronic bronchitis, unspecified chronic bronchitis type ( HCC) - ICD9: 491.9, ICD10: J42 Chronic cough, rhonchi on exam. No symptoms or exam findings concerning for CHF or infection. Continue taking Mucinex BID 4. Essential hypertension - ICD9: 401.9, ICD10: I10 Meds refilled - LISINOPRIL 10 MG TABLET - METOPROLOL SUCCINATE ER 50 MG TABLET,EXTENDED RELEASE 24 H R Prescription instructions reviewed with patient as applicabl e. Potential red flag symptoms discussed with the patient. Reviewed appro priate action plan to take if red flag symptoms occur. Patient agreeable t o treatment plan. Joanne Dozier APRN.DISCOVERY GUIDE cnov on 2019-06-19 CNOV Office Visit (INTMWS) Normal 06-19-[address] [place] [facility] MICHAEL HOWARD ([id number]) 1935 M [facility] Date Time Provider Department ([id number]) 06/19/19 8:40 AM JOANNE DOZIER (MELONY) INTMWS During your visit today, we recorded the following informati on about you: Temperature Pulse Respiration Blood pressure 97.9 degrees 54/minute 16/minute 138/80 Weight 96.2 kg Joanne Dozier, EDGE CUTTER.MELONY 06/19/2019 9:15 AM Signed CC: Patient presents with: follow up swelling HPI Michael Howard is a 84 year old male who presents today for follow-up. He had developed DVT during hospital admission for GI bleed in [facility]. He was started on Lovenox injections, will be on for a total of 3 m [facility]. Patient denies any usual or excessive bleeding including black /bloody stools, rectal bleeding, hematuria, bleeding gums. Also denies worsening SO B, chest pain, palpitations, dizziness, lightheadedness , feeling faint, passing out, falling. Leg swelling has improved somewhat, alwa ys better in the mornings and worse as the day goes on. Has been wearing compre ssion socks but doesn't seem to make a difference however legs feel better when he wears them. He was also seen 2 weeks ago for acute gout right third toe. Started on Colchicine and resolved after a few days. REVIEW OF SYSTEMS See HPI PAST MEDICAL HISTORY Diagnosis Date - AAA (abdominal aortic aneurysm) (HCC) 09/17/2010 - ANXIETY STATE NOS 02/03/2005 - Bladder cancer (HCC) 11/06/2014 - Bladder mass 03/27/2014 - Bladder neck obstruction 05/21/2005 - Cavitating mass of lower lobe of left lung 08/25/2018 - CKD (chronic kidney disease) stage 3, GFR 30-59 ml/min ( C) 01/30/2018 - Depressive disorder, not elsewhere classified - Elevated prostate specific antigen (PSA) - Gout of big toe 06/03/2012 - Hearing loss 02/26/2009 - Hematuria 04/10/2014 - HYPERTENSION NOS 05/05/2005 - Hypertrophy of prostate without urinary obstru ction and other lower urinary tract symptoms (LUTS) - HYPERTROPHY PROSTATE WITH OBST 05/21/2005 - Nodule of left lung 09/17/2010 - Obesity, unspecified - Other and unspecified hyperlipidemia - Pneumonia 02/05/2017 - S/P AAA (abdominal aortic aneurysm) repair 02/27/2015 - Seborrheic dermatitis 01/26/2012 - Type II or unspecified type diabetes mellitus without ment ion of complication, not stated as uncontrolled PAST SURGICAL HISTORY Procedure Laterality Date - BRONCHOSCOPY Left 10/26/2018 - COLONOSCOPY - DIAGNOSTIC 02/05/2004 - CT NEEDLE BIOPSY 02/09/2011 Left lung nodule, non diagnostic - CYSTOSCOPY 03/05/2015 - CYSTOSCOPY WITH BLADDER BIOPSY 04/25/2014 - EGD 02/05/2004 - OP FEM ART EXPOS AORT PROSTH 10/15/2010 AAA WITH STENT GRAFT - PAST SURGICAL HISTORY OF 08/2015 skin cancer lesion removal - S VANGUARD PARTIAL KNEE Bilateral 01/2009 bilateral - SIGMOIDOSCOPY FLEX DIAG 06/23/1989 Sigmoidoscopy - TRANSURETHRAL ELEC-SURG PROSTATECTOM 06/2005 TURP ALLERGIES Patient has no known allergies. MEDICATIONS enoxaparin (LOVENOX) 80 mg/0.8 mL syrg Inject 0.8 mL s ubcutaneously q 12 HR. colchicine 0.6 mg tablet Suhail e 2 tabs by mouth, followed by 1 tab one hour later for gout flare. pantoprazole DR (PROTONIX) 40 mg tablet Take 1 tablet by m out twice daily. Take on empty stomach, 1/2 hr before meal. sucralfate (CARAFATE) 1 gram tablet Take 1 tablet by mouth before meals and at bedtime. Ferrous Gluconate (FERGON) 324 mg (38 mg iron) tablet Take 1 tablet by mouth daily with breakfast. furosemide (LASIX) 40 mg tablet Take 1 tablet by mouth once daily as needed. lisinopril (ZESTRIL, PRINIVIL) 10 mg tab let Take 1 tablet by mouth once daily. metoprolol succinate ER (TOPROL XL) 50 mg 24 hr tablet Take 1 tablet by mouth once daily. guaiFENesin (MUCINEX) 600 mg 12 hr table t Take 2 tablets by mouth twice daily. ipratropium bromide (ATROVENT) 42 mcg (0 .06 %) nasal spray Use 2 Sprays in the nose twice daily as needed (nasal drainage). albuterol HFA (PROVENTIL HFA, VENTOLIN HFA) 90 m cg/actuation inhaler Inhale 2 Puffs as instructed every 6 hours as needed (cough, wheezing ). hydrocortisone (HYTONE) 2.5 % lotion Apply 1-2 t imes/ day PRN; selectively to the rash or lesions on face, neck, ears, hairline areas. Julian id direct application to eyelids. amLODIPine (NORVASC) 10 mg tablet Take 1 tablet by mouth onc e daily. metFORMIN (GLUCOPHAGE) 500 mg tablet Take 2 tablets by mouth daily with breakfast. albuterol (PROVENTIL) 2.5 mg /3 mL (0.083 %) nebulizer solution Use 3 mL via nebulizer every 6 hours as needed for Wheezing/Shortne ss of Breath. Use over 5-15minutes. Aspirin 81 mg ORAL Tab Take 1 tablet by mouth once daily. FAMILY HISTORY Problem Relation Age of Onset - Cancer Mother age 89 - Coronary Artery Disease Father age 84 - None No Family History Lung disease or lung cancer. Social History Tobacco Use - Smoking status: Former Smoker Years: 30.00 Types: Cigars Last attempt to quit: 08/23/2013 Years since quittin.8 - Smokeless tobacco: Never Used - Tobacco comment: I smoked cigars, never cigarettes. Substance Use Topics - Alcohol use: Yes Alcohol/week: 10.0 standard drinks Types: 1 Glasses of Wine (5oz), 2 Cans of Beer (12oz), 1 Mix ed Drinks per week - Drug use: No PHYSICAL EXAM BP 138/80 Pulse (!) 54 Temp 36.6 ?C (97.9 ?F) (Tempora l) Resp 16 Wt 96.2 kg (212 lb) SpO2 95% BMI 32.23 kg/m? General Appearance: well appearing, in no acute distress, al ert Lungs: Rhonchi throughout. Clears somewhat with cough. Good air exchange. No rales or wheezing. Heart: RRR without murmur, gallop, or rubs. No ectopy Ext: 1+ pitting edema to BLE, L > R, 1+ distal pulses ASSESSMENT/PLAN: 1. Acute deep vein thrombosis (DVT) of p roximal vein of both lower extremities (HCC) - ICD9: 453.41, ICD10: I82.4Y3 (primary diagnosis) Doing well on Lovenox, no co ncerning symptoms or exam findings for recurrent GI bleed. Weekly hemoglobin matilde nding up. If this continues can stop checking after the next two. Follow-up with PCP in [place] as scheduled or sooner as needed. 2. Bilateral lower extremity edema - ICD9: 782.3, ICD10: R60 .0 Stable. Wear compression socks, keeps legs elevated, avoid p rolonged sitting/standing. Has Lasix to take as needed if above measures are not working. 3. Chronic bronchitis, unspe cified chronic bronchitis type (HCC) - ICD9: 491.9, ICD10: J42 Chronic cough, rhonchi on ex am. No symptoms or exam findings concerning for CHF or infection. Continue taking Mucinex BID 4. Essential hypertension - ICD9: 401.9, ICD10: I10 Meds refilled - LISINOPRIL 10 MG TABLET - METOPROLOL SUCCINATE ER 50 MG TABLET,EXTENDED RELEASE 24 H R Prescription instructions reviewed with patient as jarrell licable. Potential red flag symptoms discussed with the patient. Review ed appropriate action plan to take if red flag symptoms occur. Patient agreeable to treatm ent plan. JOSELITO Schmitt APRN.CNP 06/19/2019 8:52 AM Signed Add more fiber to your diet. The recomme nded daily amount of fiber is 20 to 35 grams. If you are increasing your fiber intake d o so slowly to avoid bloating and discomfort. The best source of fiber comes from foods. Examples of high fiber foods include whole grain breads and cereals, fr uits (berries, prunes, oranges, etc) and vegetables (lettuce, broccoli, potato with skins, etc.). There are also fiber supplements availab le over the counter such as Metamucil? or Benefiber? Referring Provider: SELF [200] Allergies As of Date: 06/19/2019 (No Known Allergies) Date Reviewed: 06/19/2019 Reviewed by: Ly Abdi Pest Control Operator - Fully Assessed Reason for Visit: follow up swelling [Other] Primary Visit Diagnosis:Acute deep vein thrombosis (DV T) of proximal vein of both lower extremities (HCC) [I82.4Y3] Other Visit Diagnoses:Bilateral lower extremity edema [R60.0 ] Chronic bronchitis, unspecified chronic bronchitis type (HCC) [J42] Essential hypertension [I10] Order(s):lisinopril (ZESTRIL, PRINIVIL) 10 mg tabletTake 1 t ablet by mouth once daily.Disp: 90 tabletRfl: [address] (PROTONIX) 40 mg tabletTake 1 tablet by mout h twice daily. Take on empty stomach, 1/2 hr before meal.Disp: 90 ta bletRfl: 0 metoprolol succinate ER (TOPROL XL) 50 mg 24 hr tabletTake 1 tablet by mouth once daily.Disp: 90 tabletRfl: 3 Prescriptions as of 06/19/2019 Sig: LISINOPRIL 10 MG TABLET Take 1 tablet by mouth once d* PANTOPRAZOLE 40 MG TABLET,DEL* Take 1 tablet by mouth twice * METOPROLOL SUCCINATE ER 50 MG* Take 1 tablet by mouth once d * ENOXAPARIN 80 MG/0.8 ML SUBCU* Inject 0.8 mL subcutaneously * FERROUS GLUCONATE 324 MG (38 * Take 1 tablet by mouth daily * FUROSEMIDE 40 MG TABLET Take 1 tablet by mouth once d* MUCINEX 600 MG TABLET, EXTEND* Take 2 tablets by mouth twice * IPRATROPIUM BROMIDE 42 MCG (0* Use 2 Sprays in the nose twic * ALBUTEROL SULFATE HFA 90 MCG/* Inhale 2 Puffs as instructed * HYDROCORTISONE 2.5 % LOTION Apply 1-2 times/ day PRN; dottie* AMLODIPINE 10 MG TABLET Take 1 tablet by mouth once d* METFORMIN 500 MG TABLET Take 2 tablets by mouth daily* ALBUTEROL SULFATE 2.5 MG/3 ML* Use 3 mL via nebulizer every * Problem List As Of Date 06/19/2019 Noted Resolved Mixed hyperlipidemia [E78.2] More... Diabetes mellitus type 2, controlled, without c* More... Depressive disorder, not elsewhere classified [* 10/28/2011 More... Elevated prostate specific antigen (PSA) [R97.2* 10/28/2011 BPH w/o urinary obs/LUTS [N40.0] 09/15/2010 OVERWEIGHT [E66.9] 09/15/2010 GENERAL OSTEOARTHROSIS [M15.9] 02/03/2005 Depression with anxiety [F41.8] 02/03/2005 Hypertension [I10] 05/05/2005 More... Bladder neck obstruction [N32.0] 05/21/2005 10/28/2011 BPH W URINARY OBS/LUTS [N40.1] 05/21/2005 10/28/2011 Hearing Loss [H91.90] 02/26/2009 AAA (abdominal aortic aneurysm) [I71.4] 09/17/2010 2 Nodule of left lung [R91.1] 09/17/2010 05/02/2015 More... BPH loc w/o ur obs/LUTS [N40.0] 06/24/2011 10/28/2011 Actinic Keratoses (Premalignant AK's) [L57.0] 01/26/201203/2015 Actinic skin damage [L57.8] 01/26/2012 04/10/2014 Solar Lentigines [L81.4] 01/26/2012 04/10/2014 Chronic rhinitis [J31.0] 02/15/2012 Other seborrheic keratosis [L82.1] 03/11/2012 03/27/2015 Hypertrophic scar [L91.0] 03/11/2012 04/10/2014 Scar condition and fibrosis of skin [L90.5] 03/11/201204/10 Xerosis cutis [L85.3] 09/29/2013 03/27/2015 BPH (benign prostatic hyperplasia) [N40.0] 04/10/2014 Bladder cancer (HCC) [C67.9] 11/06/2014 Obesity, Class II, BMI 35-39.9 [E66.9] 02/27/2015 03/31/2019 Multiple thyroid nodules [E04.2] 02/27/2015 02/27/2015 Gout of big toe [M10.9] 06/03/2012 Physical debility [R53.81] 03/19/2016 04/16/2016 Actinic keratosis [L57.0] 08/05/2016 More... Seborrheic dermatitis [L21.9] 01/26/2012 Bronchitis with bronchospasm [J20.9] 01/29/2018 CKD (chronic kidney disease) stage 3, GFR 30-59*01/30/2018 Cavitating mass of lower lobe of left lung [J98*08/25/2018 Obesity, Class I, BMI 30-34.9 [E66.9] 03/31/2019 Transient atrial fibrillation (HCC) [I48.91] 04/27/2019 Acute respiratory failure with hypoxia (HCC) [J*04/27/2019 Sepsis due to Streptococcus pneumoniae without *04/27/2019 Acute deep vein thrombosis (DVT) of proximal ve*06/02/2019 Other instructions from your clinician: Add more fiber to your diet. The recommended daily amount of fiber is 20 to 35 grams. If you are increasing your fiber intake do so s lowly to avoid bloating and discomfort. The best source of fiber comes from foods. Examples of high fiber foods include whole grain breads and cereals, fruits (berries, prunes, oranges, etc) and vegetables (lettu ce, broccoli, potato with skins, etc.). There are also fiber supplements a vailable over the counter such as Metamucil? or Benefiber? Prescriptions ordered this encounter Disp Refills Start End LISINOPRIL 10 MG TABLET 90 t* 3 06/19/2019 Route: ORAL Sig: Take 1 tablet by mouth once daily. PANTOPRAZOLE 40 MG TABLET,DELAYED RE* 90 t* 0 06/19/2019 Route: ORAL Sig: Take 1 tablet by mouth twice daily. Take on empty stomach, 1/2 hr before meal. METOPROLOL SUCCINATE ER 50 MG TABLET* 90 t* 3 06/19/2019 Route: ORAL Sig: Take 1 tablet by mouth once daily. Medications Discontinued During This Encounter sucralfate (CARAFATE) 1 gram tablet 05/30/2019 06/19/2019 Class: Med Update Route: ORAL Sig: Take 1 tablet by mouth before meals and at bedtime. Disc: Course of therapy completed lisinopril (ZESTRIL, PRINIVIL) 10 mg* 30 t* 0 04/27/201906/19 Route: ORAL Sig: Take 1 tablet by mouth once daily. Disc: Reason for discontinue is not on file. pantoprazole DR (PROTONIX) 40 mg tab* 05/30/2019 06/19/2019 Class: Med Update Route: ORAL Sig: Take 1 tablet by mouth twice daily. Take on empty stomach, 1/2 hr before meal. Disc: Reason for discontinue is not on file. metoprolol succinate ER (TOPROL XL) * 04/27/2019 06/19/2019 Class: Med Update Route: ORAL Sig: Take 1 tablet by mouth once daily. Disc: Reason for discontinue is not on file. colchicine 0.6 mg tablet 3 ta* 0 06/02/2019 06/19/2019 Sig: Take 2 tabs by mouth, followed by 1 tab one hour late r for gout flare. Disc: Course of therapy completed Aspirin 81 mg ORAL Tab 0 09/15/2010 06/19/2019 Class: OTC Route: ORAL Sig: Take 1 tablet by mouth once daily. Disc: Clinical Decision Encounter Status:Closed by JOANNE DOZIER CNP on 06/19/19 obsolete on 2019-05 OBSOLETE Refill (INTMWS) Normal 06-16-2019 [place] [facility] MICHAEL HOWARD ([id number]) 1935 M [facility] Date Time Provider Department ([id number]) 06/16/19 JOANNE DOZIER (MELONY) INTMWS During your visit today, we recorded the following informati on about you: Allergies As of Date: 06/16/2019 (No Known Allergies) Date Reviewed: 06/02/2019 Reviewed by: Ly Abdi Cma - Fully Assessed Reason for Visit: Refill Request [94] Visit Diagnosis:Chronic anticoagulation [Z79.01] Order(s):enoxaparin (LOVENOX) 80 mg/0.8 mL syrgI nject 0.8 mL subcutaneously q 12 HR.Disp: 48 mLRfl: 1 Prescriptions as of 06/16/2019 Sig: ENOXAPARIN 80 MG/0.8 ML SUBCU* Inject 0.8 mL subcutaneously * COLCHICINE 0.6 MG TABLET Take 2 tabs by mouth, followe* PANTOPRAZOLE 40 MG TABLET,DEL* Take 1 tablet by mouth twice * SUCRALFATE 1 GRAM TABLET Take 1 tablet by mouth before* FERROUS GLUCONATE 324 MG (38 * Take 1 tablet by mouth daily * FUROSEMIDE 40 MG TABLET Take 1 tablet by mouth once d* LISINOPRIL 10 MG TABLET Take 1 tablet by mouth once d* METOPROLOL SUCCINATE ER 50 MG* Take 1 tablet by mouth once d * MUCINEX 600 MG TABLET, EXTEND* Take 2 tablets by mouth twice * IPRATROPIUM BROMIDE 42 MCG (0* Use 2 Sprays in the nose twic * ALBUTEROL SULFATE HFA 90 MCG/* Inhale 2 Puffs as instructed * HYDROCORTISONE 2.5 % LOTION Apply 1-2 times/ day PRN; dottie* AMLODIPINE 10 MG TABLET Take 1 tablet by mouth once d* METFORMIN 500 MG TABLET Take 2 tablets by mouth daily* ALBUTEROL SULFATE 2.5 MG/3 ML* Use 3 mL via nebulizer every * * ASPIRIN 81 MG TABLET Take 1 tablet by mouth once d* Problem List As Of Date 06/16/2019 Noted Resolved Mixed hyperlipidemia [E78.2] More... Diabetes mellitus type 2, controlled, without c* More... Depressive disorder, not elsewhere classified [* 10/28/2011 More... Elevated prostate specific antigen (PSA) [R97.2* 10/28/2011 BPH w/o urinary obs/LUTS [N40.0] 09/15/2010 OVERWEIGHT [E66.9] 09/15/2010 GENERAL OSTEOARTHROSIS [M15.9] 02/03/2005 Depression with anxiety [F41.8] 02/03/2005 Hypertension [I10] 05/05/2005 More... Bladder neck obstruction [N32.0] 05/21/2005 10/28/2011 BPH W URINARY OBS/LUTS [N40.1] 05/21/2005 10/28/2011 Hearing Loss [H91.90] 02/26/2009 AAA (abdominal aortic aneurysm) [I71.4] 09/17/2010 2 Nodule of left lung [R91.1] 09/17/2010 05/02/2015 More... BPH loc w/o ur obs/LUTS [N40.0] 06/24/2011 10/28/2011 Actinic Keratoses (Premalignant AK's) [L57.0] 01/26/201203/2015 Actinic skin damage [L57.8] 01/26/2012 04/10/2014 Solar Lentigines [L81.4] 01/26/2012 04/10/2014 Chronic rhinitis [J31.0] 02/15/2012 Other seborrheic keratosis [L82.1] 03/11/2012 03/27/2015 Hypertrophic scar [L91.0] 03/11/2012 04/10/2014 Scar condition and fibrosis of skin [L90.5] 03/11/201204/10 Xerosis cutis [L85.3] 09/29/2013 03/27/2015 BPH (benign prostatic hyperplasia) [N40.0] 04/10/2014 Bladder cancer (HCC) [C67.9] 11/06/2014 Obesity, Class II, BMI 35-39.9 [E66.9] 02/27/2015 03/31/2019 Multiple thyroid nodules [E04.2] 02/27/2015 02/27/2015 Gout of big toe [M10.9] 06/03/2012 Physical debility [R53.81] 03/19/2016 04/16/2016 Actinic keratosis [L57.0] 08/05/2016 More... Seborrheic dermatitis [L21.9] 01/26/2012 Bronchitis with bronchospasm [J20.9] 01/29/2018 CKD (chronic kidney disease) stage 3, GFR 30-59*01/30/2018 Cavitating mass of lower lobe of left lung [J98*08/25/2018 Obesity, Class I, BMI 30-34.9 [E66.9] 03/31/2019 Transient atrial fibrillation (HCC) [I48.91] 04/27/2019 Acute respiratory failure with hypoxia (HCC) [J*04/27/2019 Sepsis due to Streptococcus pneumoniae without *04/27/2019 Acute deep vein thrombosis (DVT) of proximal ve*06/02/2019 Prescriptions ordered this encounter Disp Refills Start End ENOXAPARIN 80 MG/0.8 ML SUBCUTANEOUS* 48 mL 1 06/16/201905/2019 Route: SUBCUTANEOUS Sig: Inject 0.8 mL subcutaneously q 12 HR. Medications Discontinued During This Encounter enoxaparin (LOVENOX) 80 mg/0.8 mL sy* 33.6* 0 05/30/201906/16 Route: SUBCUTANEOUS Sig: Inject 0.8 mL subcutaneously q 12 HR for 21 days. Disc: Reason for discontinue is not on file. Encounter Status:Closed by JOANNE DOZIER CNP on 06/16/19 hemoglobin on 06-15 Hemoglobin (Bld) 10.2 13.0-17.0 g/dL Low 06-15-2019 [facility] [Mass/Vol] [place] ([id number]) Comment: Performed By: #### UACR #### [facility] [address], [place] [address] hemoglobin on 06-07 Hemoglobin (Bld) 9.9 13.0-17.0 g/dL Low 06-07-2019 [facility] [Mass/Vol] [place] ([id number]) Comment: Performed By: #### UACR #### [facility] [address], [place] [address] progress on 2019-05 PROGRESS HNO ID: [id number] Normal 06-02-2019 [facility] Author: Joanne (Melony) Sally [place] ([id number]) Service: ? Author Type: Nurse Practitioner Type: Progress Notes Filed: 06/02/2019 3:00 PM Note Text: CC: Patient presents with: toe redness HPI Michael Howard is a 84 year old male who presents today for a ben. Patient states for the past 3 days his right 2nd toe has been swolle n and very red, hot to the touch. Positive for mild pain and tenderness in toe. Admits to history of gout, he thought that is possibly what this was. Has old prescription for Colchicine but did not take, thinks it is . Denies injury. No cuts, abrasions, red streaking. Also denie s fever, chills, body aches, nausea, excessive fatigue. REVIEW OF SYSTEMS See HPI PAST MEDICAL HISTORY Diagnosis Date - AAA (abdominal aortic aneurysm) (HCC) 09/17/2010 - ANXIETY STATE NOS 02/03/2005 - Bladder cancer (HCC) 11/06/2014 - Bladder mass 03/27/2014 - Bladder neck obstruction 05/21/2005 - Cavitating mass of lower lobe of left lung 08/25/2018 - CKD (chronic kidney disease) stage 3, GFR 30-59 ml/min (HC C) 01/30/2018 - Depressive disorder, not elsewhere classified - Elevated prostate specific antigen (PSA) - Gout of big toe 06/03/2012 - Hearing loss 02/26/2009 - Hematuria 04/10/2014 - HYPERTENSION NOS 05/05/2005 - Hypertrophy of prostate without urinary obstruction and ot her lower urinary tract symptoms (LUTS) - HYPERTROPHY PROSTATE WITH OBST 05/21/2005 - Nodule of left lung 09/17/2010 - Obesity, unspecified - Other and unspecified hyperlipidemia - Pneumonia 02/05/2017 - S/P AAA (abdominal aortic aneurysm) repair 02/27/2015 - Seborrheic dermatitis 01/26/2012 - Type II or unspecified type diabetes mellitus without ment ion of complication, not stated as uncontrolled PAST SURGICAL HISTORY Procedure Laterality Date - BRONCHOSCOPY Left 10/26/2018 - COLONOSCOPY - DIAGNOSTIC 02/05/2004 - CT NEEDLE BIOPSY 02/09/2011 Left lung nodule, non diagnostic - CYSTOSCOPY 03/05/2015 - CYSTOSCOPY WITH BLADDER BIOPSY 04/25/2014 - EGD 02/05/2004 - OP FEM ART EXPOS AORT PROSTH 10/15/2010 AAA WITH STENT GRAFT - PAST SURGICAL HISTORY OF 08/2015 skin cancer lesion removal - S VANGUARD PARTIAL KNEE Bilateral 01/2009 bilateral - SIGMOIDOSCOPY FLEX DIAG 06/23/1989 Sigmoidoscopy - TRANSURETHRAL ELEC-SURG PROSTATECTOM 06/2005 TURP ALLERGIES Patient has no known allergies. MEDICATIONS pantoprazole DR (PROTONIX) 40 mg tablet Take 1 tablet by jacob twice daily. Take on empty stomach, 1/2 hr before meal. sucralfate (CARAFATE) 1 gram tablet Take 1 tablet by mouth b efore meals and at bedtime. Ferrous Gluconate (FERGON) 324 mg (38 mg iron) tablet Take 1 tablet by mouth daily with breakfast. furosemide (LASIX) 40 mg tablet Take 1 tablet by mouth once daily as needed. enoxaparin (LOVENOX) 80 mg/0.8 mL syrg Inject 0.8 mL subcuta neously q 12 HR for 21 days. lisinopril (ZESTRIL, PRINIVIL) 10 mg tablet Take 1 tablet by mouth once daily. metoprolol succinate ER (TOPROL XL) 50 mg 24 hr tablet Take 1 tablet by mouth once daily. guaiFENesin (MUCINEX) 600 mg 12 hr tablet Take 2 tablets by mouth twice daily. ipratropium bromide (ATROVENT) 42 mcg (0.06 %) nasal spray U se 2 Sprays in the nose twice daily as needed (nasal drainage). albuterol HFA (PROVENTIL HFA, VENTOLIN HFA) 90 mcg/actuation inhaler Inhale 2 Puffs as instructed every 6 hours as needed (cough, wheezing). hydrocortisone (HYTONE) 2.5 % lotion Apply 1-2 times/ day KS N; selectively to the rash or lesions on face, neck, ears, hairline areas. Avoid direct application to eyelids. amLODIPine (NORVASC) 10 mg tablet Take 1 tablet by mouth onc e daily. metFORMIN (GLUCOPHAGE) 500 mg tablet Take 2 tablets by mouth daily with breakfast. albuterol (PROVENTIL) 2.5 mg /3 mL (0.083 %) nebulizer solut ion Use 3 mL via nebulizer every 6 hours as needed for Wheezing/Shortness of Breath. Use over 5-15minutes. Aspirin 81 mg ORAL Tab Take 1 tablet by mouth once daily. cephALEXin (KEFLEX) 500 mg capsule Take 1 capsule by mouth t hree times daily for 7 days. colchicine 0.6 mg tablet Take 2 tabs by mouth, followed by 1 tab one hour later for gout flare. FAMILY HISTORY Problem Relation Age of Onset - Cancer Mother age 89 - Coronary Artery Disease Father age 84 - None No Family History Lung disease or lung cancer. Social History Tobacco Use - Smoking status: Former Smoker Years: 30.00 Types: Cigars Last attempt to quit: 08/23/2013 Years since quittin.7 - Smokeless tobacco: Never Used - Tobacco comment: I smoked cigars, never cigarettes. Substance Use Topics - Alcohol use: Yes Alcohol/week: 10.0 standard drinks Types: 1 Glasses of Wine (5oz), 2 Cans of Beer (12oz), 1 Mix ed Drinks per week - Drug use: No PHYSICAL EXAM BP 140/90 Pulse 103 Resp 16 SpO2 96% General Appearance: well appearing, in no acute distress, al ert Lower Extremities: right 2nd toe: very erythematous, hot and exquisite tenderness with palpation of distal toe joint. Skin intact e xcept small fissure between 1st and 2nd toe without redness or drainage. No induration, fluctuance, lymphangitis. 2-3+ pitting edema to BLE. Skin warm and pink. Pulses 1+. Cap refill < 2 seconds. ASSESSMENT/PLAN: 1. Pain and swelling of toe of right foot - ICD9: 729.5, 729 .81, ICD10: M79.674, M79.89 (primary diagnosis) Most likely gout but cellulitis remains a possibility. - Will start treatment with Colchicine, see orders - Given printed prescription for Keflex and instructed to st art taking Wednesday if no improvement - Follow-up phone call on Wednesday. Call office sooner if symp toms worsen 2. Acute deep vein thrombosis (DVT) of proximal vein of both lower extremities (HCC) - ICD9: 453.41, ICD10: I82.4Y3 Recently diagnosed this week, see notes in Epic. States he h as started Lovenox injections and denies any issues with administration . Still needs to schedule 2 week follow-up, states he will do on Wednesday Prescription instructions reviewed with patient as applicabl e. Potential red flag symptoms discussed with the patient. Reviewed appro priate action plan to take if red flag symptoms occur. Patient agreeable t o treatment plan. Joanne Dozier APRN.CNP cnov on 2019-06-02 CNOV Office Visit (INTMWS) Normal 06-02-[address] [place] [address] Clinic MICHAEL HOWARD ([id number]) 1935 [address] [place] Date Time Provider Department ([id number]) 06/02/19 2:00 PM JOANNE DOZIER (MELONY) INTMWS During your visit today, we recorded the following informati on about you: Pulse Respiration Blood pressure 103/minute 16/minute 140/90 Joanne Dozier APRN.CNP 06/02/2019 2:18 PM Signed Start colchicine today for possible gout in your 2nd toe on the right foot. If the redness and swelling of the toe does not improve on Wednesday you should fill the antibiotic (cephalaxin) and take as prescribed. We will call you on Wednesday for an update Joanne Dozier APRN.CNP 06/02/2019 3:00 PM Signed CC: Patient presents with: toe redness HPI Michael Howard is a 84 year old male who presents today for a ben. Patient states for the past 3 days h is right 2nd toe has been swollen and very red, hot to the touch. Positive for mild pain and tendern ess in toe. Admits to history of gout, he thought that is possibly what this was. Moran s old prescription for Colchicine but did not take, thinks it is . Denies in jury. No cuts, abrasions, red streaking. Also denies fever, chills, body ac hes, nausea, excessive fatigue. REVIEW OF SYSTEMS See HPI PAST MEDICAL HISTORY Diagnosis Date - AAA (abdominal aortic aneurysm) (HCC) 09/17/2010 - ANXIETY STATE NOS 02/03/2005 - Bladder cancer ([facility]) 11/06/2014 - Bladder mass 03/27/2014 - Bladder neck obstruction 05/21/2005 - Cavitating mass of lower lobe of left lung 08/25/2018 - CKD (chronic kidney disease) stage 3, GFR 30-59 ml/min (HC C) 01/30/2018 - Depressive disorder, not elsewhere classified - Elevated prostate specific antigen (PSA) - Gout of big toe 06/03/2012 - Hearing loss 02/26/2009 - Hematuria 04/10/2014 - HYPERTENSION NOS 05/05/2005 - Hypertrophy of prostate without urinary obstru ction and other lower urinary tract symptoms (LUTS) - HYPERTROPHY PROSTATE WITH OBST 05/21/2005 - Nodule of left lung 09/17/2010 - Obesity, unspecified - Other and unspecified hyperlipidemia - Pneumonia 02/05/2017 - S/P AAA (abdominal aortic aneurysm) repair 02/27/2015 - Seborrheic dermatitis 01/26/2012 - Type II or unspecified type diabetes mellitus without ment ion of complication, not stated as uncontrolled PAST SURGICAL HISTORY Procedure Laterality Date - BRONCHOSCOPY Left 10/26/2018 - COLONOSCOPY - DIAGNOSTIC 02/05/2004 - CT NEEDLE BIOPSY 02/09/2011 Left lung nodule, non diagnostic - CYSTOSCOPY 03/05/2015 - CYSTOSCOPY WITH BLADDER BIOPSY 04/25/2014 - EGD 02/05/2004 - OP FEM ART EXPOS AORT PROSTH 10/15/2010 AAA WITH STENT GRAFT - PAST SURGICAL HISTORY OF 08/2015 skin cancer lesion removal - S VANGUARD PARTIAL KNEE Bilateral 01/2009 bilateral - SIGMOIDOSCOPY FLEX DIAG 06/23/1989 Sigmoidoscopy - TRANSURETHRAL ELEC-SURG PROSTATECTOM 06/2005 TURP ALLERGIES Patient has no known allergies. MEDICATIONS pantoprazole DR (PROTONIX) 40 mg tablet Take 1 tablet by m outh twice daily. Take on empty stomach, 1/2 hr before meal. sucralfate (CARAFATE) 1 gram tablet Take 1 tablet by mouth before meals and at bedtime. Ferrous Gluconate (FERGON) 324 mg (38 mg iron) tablet Take 1 tablet by mouth daily with breakfast. furosemide (LASIX) 40 mg tablet Take 1 tablet by mouth once daily as needed. enoxaparin (LOVENOX) 80 mg/0 .8 mL syrg Inject 0.8 mL subcutaneously q 12 HR for 21 days. lisinopril (ZESTRIL, PRINIVIL) 10 mg tab let Take 1 tablet by mouth once daily. metoprolol succinate ER (TOPROL XL) 50 mg 24 hr tablet Take 1 tablet by mouth once daily. guaiFENesin (MUCINEX) 600 mg 12 hr table t Take 2 tablets by mouth twice daily. ipratropium bromide (ATROVENT) 42 mcg (0 .06 %) nasal spray Use 2 Sprays in the nose twice daily as needed (nasal drainage). albuterol HFA (PROVENTIL HFA, VENTOLIN HFA) 90 m cg/actuation inhaler Inhale 2 Puffs as instructed every 6 hours as needed (cough, wheezing ). hydrocortisone (HYTONE) 2.5 % lotion Apply 1-2 t imes/ day PRN; selectively to the rash or lesions on face, neck, ears, hairline areas. Julian id direct application to eyelids. amLODIPine (NORVASC) 10 mg tablet Take 1 tablet by mouth onc e daily. metFORMIN (GLUCOPHAGE) 500 mg tablet Take 2 tablets by mouth daily with breakfast. albuterol (PROVENTIL) 2.5 mg /3 mL (0.083 %) nebulizer solution Use 3 mL via nebulizer every 6 hours as needed for Wheezing/Shortne ss of Breath. Use over 5-15minutes. Aspirin 81 mg ORAL Tab Take 1 tablet by mouth once daily. cephALEXin (KEFLEX) 500 mg capsule Take 1 capsule by m out three times daily for 7 days. colchicine 0.6 mg tablet Suhail e 2 tabs by mouth, followed by 1 tab one hour later for gout flare. FAMILY HISTORY Problem Relation Age of Onset - Cancer Mother age 89 - Coronary Artery Disease Father age 84 - None No Family History Lung disease or lung cancer. Social History Tobacco Use - Smoking status: Former Smoker Years: 30.00 Types: Cigars Last attempt to quit: 08/23/2013 Years since quittin.7 - Smokeless tobacco: Never Used - Tobacco comment: I smoked cigars, never cigarettes. Substance Use Topics - Alcohol use: Yes Alcohol/week: 10.0 standard drinks Types: 1 Glasses of Wine (5oz), 2 Cans of Beer (12oz), 1 Mix ed Drinks per week - Drug use: No PHYSICAL EXAM BP 140/90 Pulse 103 Resp 16 SpO2 96% General Appearance: well appearing, in no acute distress, al ert Lower Extremities: right 2nd toe: very erythematous, hot and exquisite tenderness with palpation of distal toe joint. Skin intact except small fissure between 1st and 2nd toe with out redness or drainage. No induration, fluctuance, lymphangitis. 2-3+ pitting edema to BLE. Skin warm and pin k. Pulses 1+. Cap refill < 2 seconds. ASSESSMENT/PLAN: 1. Pain and swelling of toe of right foot - ICD9: 729.5, 729 .81, ICD10: M79.674, M79.89 (primary diagnosis) Most likely gout but cellulitis remains a possibility. - Will start treatment with Colchicine, see orders - Given printed prescription for Keflex and inst ructed to start taking Wednesday if no improvement - Follow-up phone call on Wednesday. Call office sooner if symp toms worsen 2. Acute deep vein thrombosis (DVT) of p roximal vein of both lower extremities (HCC) - ICD9: 453.41, ICD10: I82.4Y3 Recently diagnosed this week, see notes in Epic. States he has started Lovenox injections and denies any is sues with administration. Still needs to schedule 2 week follow-up, states he will do on Wednesday Prescription instructions reviewed with patient as jarrell licable. Potential red flag symptoms discussed with the patient. Review ed appropriate action plan to take if red flag symptoms occur. Patient agreeable to treatm ent plan. Joanne Dozier, CAPO.DISCOVERY GUIDE Referring Provider: SELF [[id number]] Allergies As of Date: 06/02/2019 (No Known Allergies) Date Reviewed: 06/02/2019 Reviewed by: Ly Abdi Pest Control Operator - Fully Assessed Reason for Visit: toe redness [Other] Primary Visit Diagnosis:Pain and swelling of toe of right foot [M79.674, M79.89] Other Visit Diagnosis:Acute deep vein thrombosis (DVT) of pr oximal vein of both lower extremities (HCC) [I82.4Y3] Order(s):cephALEXin (KEFLEX) 500 mg caps uleTake 1 capsule by mouth three times daily for 7 days.Disp: 21 capsuleRfl: 0 colchicine 0.6 mg tabletTake 2 tabs by mouth, followed by 1 tab one hour later for gout flare.Disp: 3 tabletRfl: 0 Prescriptions as of 06/02/2019 Sig: PANTOPRAZOLE 40 MG TABLET,DEL* Take 1 tablet by mouth twice * SUCRALFATE 1 GRAM TABLET Take 1 tablet by mouth before* FERROUS GLUCONATE 324 MG (38 * Take 1 tablet by mouth daily * FUROSEMIDE 40 MG TABLET Take 1 tablet by mouth once d* ENOXAPARIN 80 MG/0.8 ML SUBCU* Inject 0.8 mL subcutaneously * LISINOPRIL 10 MG TABLET Take 1 tablet by mouth once d* METOPROLOL SUCCINATE ER 50 MG* Take 1 tablet by mouth once d * MUCINEX 600 MG TABLET, EXTEND* Take 2 tablets by mouth twice * IPRATROPIUM BROMIDE 42 MCG (0* Use 2 Sprays in the nose twic * ALBUTEROL SULFATE HFA 90 MCG/* Inhale 2 Puffs as instructed * HYDROCORTISONE 2.5 % LOTION Apply 1-2 times/ day PRN; dottie* AMLODIPINE 10 MG TABLET Take 1 tablet by mouth once d* METFORMIN 500 MG TABLET Take 2 tablets by mouth daily* ALBUTEROL SULFATE 2.5 MG/3 ML* Use 3 mL via nebulizer every * * ASPIRIN 81 MG TABLET Take 1 tablet by mouth once d* CEPHALEXIN 500 MG CAPSULE Take 1 capsule by mouth three* COLCHICINE 0.6 MG TABLET Take 2 tabs by mouth, followe* Problem List As Of Date 06/02/2019 Noted Resolved Mixed hyperlipidemia [E78.2] More... Diabetes mellitus type 2, controlled, without c* More... Depressive disorder, not elsewhere classified [* 10/28/2011 More... Elevated prostate specific antigen (PSA) [R97.2* 10/28/2011 BPH w/o urinary obs/LUTS [N40.0] 09/15/2010 OVERWEIGHT [E66.9] 09/15/2010 GENERAL OSTEOARTHROSIS [M15.9] 02/03/2005 Depression with anxiety [F41.8] 02/03/2005 Hypertension [I10] 05/05/2005 More... Bladder neck obstruction [N32.0] 05/21/2005 10/28/2011 BPH W URINARY OBS/LUTS [N40.1] 05/21/2005 10/28/2011 Hearing Loss [H91.90] 02/26/2009 AAA (abdominal aortic aneurysm) [I71.4] 09/17/2010 2 Nodule of left lung [R91.1] 09/17/2010 05/02/2015 More... BPH loc w/o ur obs/LUTS [N40.0] 06/24/2011 10/28/2011 Actinic Keratoses (Premalignant AK's) [L57.0] 01/26/201203/2015 Actinic skin damage [L57.8] 01/26/2012 04/10/2014 Solar Lentigines [L81.4] 01/26/2012 04/10/2014 Chronic rhinitis [J31.0] 02/15/2012 Other seborrheic keratosis [L82.1] 03/11/2012 03/27/2015 Hypertrophic scar [L91.0] 03/11/2012 04/10/2014 Scar condition and fibrosis of skin [L90.5] 03/11/201204/10 Xerosis cutis [L85.3] 09/29/2013 03/27/2015 BPH (benign prostatic hyperplasia) [N40.0] 04/10/2014 Bladder cancer (HCC) [C67.9] 11/06/2014 Obesity, Class II, BMI 35-39.9 [E66.9] 02/27/2015 03/31/2019 Multiple thyroid nodules [E04.2] 02/27/2015 02/27/2015 Gout of big toe [M10.9] 06/03/2012 Physical debility [R53.81] 03/19/2016 04/16/2016 Actinic keratosis [L57.0] 08/05/2016 More... Seborrheic dermatitis [L21.9] 01/26/2012 Bronchitis with bronchospasm [J20.9] 01/29/2018 CKD (chronic kidney disease) stage 3, GFR 30-59*01/30/2018 Cavitating mass of lower lobe of left lung [J98*08/25/2018 Obesity, Class I, BMI 30-34.9 [E66.9] 03/31/2019 Transient atrial fibrillation (HCC) [I48.91] 04/27/2019 Acute respiratory failure with hypoxia (HCC) [J*04/27/2019 Sepsis due to Streptococcus pneumoniae without *04/27/2019 Acute deep vein thrombosis (DVT) of proximal ve*06/02/2019 Other instructions from your clinician: Start colchicine today for possible gout in your 2nd toe on the right foot. If the redness and swelling of the toe does not improv e on Wednesday you should fill the antibiotic (cephalaxin) and take as pres cribed. We will call you on Wednesday for an update Prescriptions ordered this encounter Disp Refills Start End CEPHALEXIN 500 MG CAPSULE 21 c* 0 06/02/2019 06/09/2019 Class: Print RX Route: ORAL Sig: Take 1 capsule by mouth three times daily for 7 days. COLCHICINE 0.6 MG TABLET 3 ta* 0 06/02/2019 Sig: Take 2 tabs by mouth, followed by 1 tab one hour late r for gout flare. Encounter Status:Closed by JOANNE DOZIER CNP on 06/02/19 progress on 2019-05 PROGRESS HNO ID: [id number] Normal 05-30-2019 [facility] Author: Joanne (Melony) [place] ([id number]) Service: ? Author Type: Nurse Practitioner Type: Progress Notes Filed: 05/30/2019 10:07 AM Note Text: CC: Patient presents with: Hospital Follow Up HPI Michael Howard is a 84 year old male who presents today for h ospital follow-up. Facility: [facility] Date of visit: 05/06/19-05/09/19 Reason for visit: patient was at pulmonology appointment and reported extreme weakness, fatigue and SOB. Stat CBC revealed Hgb 5.4 Hospital course: patient received 3 units of RBC's during ad mission. Hgb 05/09 was 7.8. EGD showed duodenal ulcer without active blee ding. Attributed to Prednisone from previous admission. He was sta rted on Carafate and Protonix 40 mg BID, discharged home with 30 day supply. Current symptoms: patient feeling a little better, still has some fatigue and weakness. Will be starting outpatient PT/OT. He had foll ow-up with general surgery last week, no recommendations made for lengt h of time on Protonix and Carafate or concerning resuming baby aspirin. D enies black/bloody stools, syncope, feeling faint, lightheadedness , dizziness, falling, abdominal pain, nausea, vomiting, diarrhea, constip ation. Appetite is improving. SOB at baseline. Using nebulizer as n eeded. Reports worsening edema BLE that is not improving in the mornings li ke it usually does. Has Lasix for prn use, took one yesterday without any improvement. Denies chest pain, palpitations, PND, orthopnea, weight gain . REVIEW OF SYSTEMS General: no fevers, no chills and no night sweats Respiratory: no cough, no wheezing, no hemoptysis PAST MEDICAL HISTORY Diagnosis Date - AAA (abdominal aortic aneurysm) (HCC) 09/17/2010 - ANXIETY STATE NOS 02/03/2005 - Bladder cancer (HCC) 11/06/2014 - Bladder mass 03/27/2014 - Bladder neck obstruction 05/21/2005 - Cavitating mass of lower lobe of left lung 08/25/2018 - CKD (chronic kidney disease) stage 3, GFR 30-59 ml/min (HC C) 01/30/2018 - Depressive disorder, not elsewhere classified - Elevated prostate specific antigen (PSA) - Gout of big toe 06/03/2012 - Hearing loss 02/26/2009 - Hematuria 04/10/2014 - HYPERTENSION NOS 05/05/2005 - Hypertrophy of prostate without urinary obstruction and ot her lower urinary tract symptoms (LUTS) - HYPERTROPHY PROSTATE WITH OBST 05/21/2005 - Nodule of left lung 09/17/2010 - Obesity, unspecified - Other and unspecified hyperlipidemia - Pneumonia 02/05/2017 - S/P AAA (abdominal aortic aneurysm) repair 02/27/2015 - Seborrheic dermatitis 01/26/2012 - Type II or unspecified type diabetes mellitus without ment ion of complication, not stated as uncontrolled PAST SURGICAL HISTORY Procedure Laterality Date - BRONCHOSCOPY Left 10/26/2018 - COLONOSCOPY - DIAGNOSTIC 02/05/2004 - CT NEEDLE BIOPSY 02/09/2011 Left lung nodule, non diagnostic - CYSTOSCOPY 03/05/2015 - CYSTOSCOPY WITH BLADDER BIOPSY 04/25/2014 - EGD 02/05/2004 - OP FEM ART EXPOS AORT PROSTH 10/15/2010 AAA WITH STENT GRAFT - PAST SURGICAL HISTORY OF 08/2015 skin cancer lesion removal - S VANGUARD PARTIAL KNEE Bilateral 01/2009 bilateral - SIGMOIDOSCOPY FLEX DIAG 06/23/1989 Sigmoidoscopy - TRANSURETHRAL ELEC-SURG PROSTATECTOM 06/2005 TURP ALLERGIES Patient has no known allergies. MEDICATIONS lisinopril (ZESTRIL, PRINIVIL) 10 mg tablet Take 1 tablet by mouth once daily. metoprolol succinate ER (TOPROL XL) 50 mg 24 hr tablet Take 1 tablet by mouth once daily. guaiFENesin (MUCINEX) 600 mg 12 hr tablet Take 2 tablets by mouth twice daily. ipratropium bromide (ATROVENT) 42 mcg (0.06 %) nasal spray U se 2 Sprays in the nose twice daily as needed (nasal drainage). albuterol HFA (PROVENTIL HFA, VENTOLIN HFA) 90 mcg/actuation inhaler Inhale 2 Puffs as instructed every 6 hours as needed (cough, wheezing). hydrocortisone (HYTONE) 2.5 % lotion Apply 1-2 times/ day KS N; selectively to the rash or lesions on face, neck, ears, hairline areas. Avoid direct application to eyelids. amLODIPine (NORVASC) 10 mg tablet Take 1 tablet by mouth onc e daily. metFORMIN (GLUCOPHAGE) 500 mg tablet Take 2 tablets by mouth daily with breakfast. albuterol (PROVENTIL) 2.5 mg /3 mL (0.083 %) nebulizer solut ion Use 3 mL via nebulizer every 6 hours as needed for Wheezing/Shortness of Breath. Use over 5-15minutes. Aspirin 81 mg ORAL Tab Take 1 tablet by mouth once daily. FAMILY HISTORY Problem Relation Age of Onset - Cancer Mother age 89 - Coronary Artery Disease Father age 84 - None No Family History Lung disease or lung cancer. Social History Tobacco Use - Smoking status: Former Smoker Years: 30.00 Types: Cigars Last attempt to quit: 08/23/2013 Years since quittin.7 - Smokeless tobacco: Never Used - Tobacco comment: I smoked cigars, never cigarettes. Substance Use Topics - Alcohol use: Yes Alcohol/week: 10.0 standard drinks Types: 1 Glasses of Wine (5oz), 2 Cans of Beer (12oz), 1 Mix ed Drinks per week - Drug use: No PHYSICAL EXAM BP 130/70 Pulse 98 Resp 16 Wt 96.6 kg (213 lb) SpO2 95% BMI 32.39 kg/m? General Appearance: well appearing, in no acute distress, al ert Lungs: rales posteriorly. No wheezing or rhonchi. Good air e xchange. Heart: RRR without murmur, gallop, or rubs. No ectopy Abdomen: Abdomen soft, non-tender. Bowel sounds normal. No m asses, organomegaly Lower Extremities: 2-3+ edema BLE with pitting. No cords or calf tenderness. No skin discoloration. Modified Wells Rule for DVT (1pt each) - active cancer (tx or palliation in last 6mo)= 0 - paralysis, paresis or recent leg casting= 0 - bedridden >3D/major surgery w/in 4 wks= 1 - localized tenderness along deep venous system= 0 - entire ext swollen= 0 - unilateral calf swelling >3cm below Tibial tuberosity= 1 - unilateral pitting edema= 1 - prominent non-varicose collateral superficial veins= 0 Score -2 if alt dx as likely as DVT= -2 Score Total: 1 Pretest probabilty: High >= 3, Intermediate 1-2, Low 0 ASSESSMENT/PLAN: 1. Anemia due to gastrointestinal blood loss - ICD9: 280.0, ICD10: D50.0 (primary diagnosis) Repeat Hgb 9.7 on 05/23. Patient feeling better, will start PT /OT. No further black/tarry stools. Follow-up last week with general surgery, medications not addressed. Patient states he was told at dis charge to take Carafate for 30 days but unsure about Protonix or resuming b anais ASA. Will discuss further with PCP 2. Bilateral lower extremity edema - ICD9: 782.3, ICD10: R60 .0 Likely due to venous insufficiency but in light of recent ho spitalization and Wells score 1 will check US LEG VEIN DVT [facility] sta t today - COMPRESSION STOCKINGS, given prescription - Follow-up pending results of ultrasound 3. Venous insufficiency - ICD9: 459.81, ICD10: I87.2 As above - COMPRESSION STOCKINGS 4. Abnormal lung sounds - ICD9: 786.7, ICD10: R09.89 Present during admission. No symptoms consistent with pneumo mary. Patient states he does not wear oxygen he was discharged home with l ast month. Feels he no longer needs this. Advised to address at pulmono logy appointment next week 5. CKD (chronic kidney disease) stage 3, GFR 30-59 ml/min (H CC) - ICD9: 585.3, ICD10: N18.3 Improved, stable Prescription instructions reviewed with patient as applicabl e. Potential red flag symptoms discussed with the patient. Reviewed appro priate action plan to take if red flag symptoms occur. Patient agreeable t o treatment plan. Joanne Dozier APRN.CNP cnov on 2019-05-30 CNOV Office Visit (INTMWS) Normal 05-30-[address] [place] [address] [facility] MICHAEL HOWARD ([id number]) 1935 M [facility] Date Time Provider Department ([id number]) 05/30/19 9:00 AM JOANNE DOZIER (MELONY) INTMWS During your visit today, we recorded the following informati on about you: Pulse Respiration Blood pressure Weight 98/minute 16/minute 130/70 96.6 kg Joanne Dozier APRN.CNP 05/30/2019 10:07 AM Signed CC: Patient presents with: Hospital Follow Up JEN Ag Erlinda is a 84 year old male who presents today for hospital follow-up. Facility: [facility] Date of visit: 05/06/19-05/09/19 Reason for visit: patient was at pulmonology jarrell ointment and reported extreme weakness, fatigue and SOB. Stat CBC revealed Hgb 5.4 Hospital course: patient received 3 unit s of RBC's during admission. Hgb 05/09 was 7.8. EGD showed duodenal ulcer without active bleeding. Attributed to Prednisone from previous admission. He w as started on Carafate and Protonix 40 mg BID, discharged home with 30 day supply. Current symptoms: patient feeling a little remington r, still has some fatigue and weakness. Will be starting outpatient PT/OT. He had follow-u p with general surgery last week, no recommendations made for l ength of time on Protonix and Carafate or concerning resuming baby aspirin. Denies black/b loody stools, syncope, feeling faint, lightheadedness, dizziness, fa lling, abdominal pain, nausea, vomiting, diarrhea, constipation. Appetite is improv ing. SOB at baseline. Using nebulizer as needed. Reports worsening edema BLE that is not improving in the mornings li ke it usually does. Has Lasix for prn use, took one yesterday without any improvement. Denies chest pain, palpit ations, PND, orthopnea, weight gain. REVIEW OF SYSTEMS General: no fevers, no chills and no night sweats Respiratory: no cough, no wheezing, no hemoptysis PAST MEDICAL HISTORY Diagnosis Date - AAA (abdominal aortic aneurysm) (HCC) 09/17/2010 - ANXIETY STATE NOS 02/03/2005 - Bladder cancer ([facility]) 11/06/2014 - Bladder mass 03/27/2014 - Bladder neck obstruction 05/21/2005 - Cavitating mass of lower lobe of left lung 08/25/2018 - CKD (chronic kidney disease) stage 3, GFR 30-59 ml/min (HC C) 01/30/2018 - Depressive disorder, not elsewhere classified - Elevated prostate specific antigen (PSA) - Gout of big toe 06/03/2012 - Hearing loss 02/26/2009 - Hematuria 04/10/2014 - HYPERTENSION NOS 05/05/2005 - Hypertrophy of prostate without urinary obstru ction and other lower urinary tract symptoms (LUTS) - HYPERTROPHY PROSTATE WITH OBST 05/21/2005 - Nodule of left lung 09/17/2010 - Obesity, unspecified - Other and unspecified hyperlipidemia - Pneumonia 02/05/2017 - S/P AAA (abdominal aortic aneurysm) repair 02/27/2015 - Seborrheic dermatitis 01/26/2012 - Type II or unspecified type diabetes mellitus without ment ion of complication, not stated as uncontrolled PAST SURGICAL HISTORY Procedure Laterality Date - BRONCHOSCOPY Left 10/26/2018 - COLONOSCOPY - DIAGNOSTIC 02/05/2004 - CT NEEDLE BIOPSY 02/09/2011 Left lung nodule, non diagnostic - CYSTOSCOPY 03/05/2015 - CYSTOSCOPY WITH BLADDER BIOPSY 04/25/2014 - EGD 02/05/2004 - OP FEM ART EXPOS AORT PROSTH 10/15/2010 AAA WITH STENT GRAFT - PAST SURGICAL HISTORY OF 08/2015 skin cancer lesion removal - S VANGUARD PARTIAL KNEE Bilateral 01/2009 bilateral - SIGMOIDOSCOPY FLEX DIAG 06/23/1989 Sigmoidoscopy - TRANSURETHRAL ELEC-SURG PROSTATECTOM 06/2005 TURP ALLERGIES Patient has no known allergies. MEDICATIONS lisinopril (ZESTRIL, PRINIVIL) 10 mg tab let Take 1 tablet by mouth once daily. metoprolol succinate ER (TOPROL XL) 50 mg 24 hr tablet Take 1 tablet by mouth once daily. guaiFENesin (MUCINEX) 600 mg 12 hr table t Take 2 tablets by mouth twice daily. ipratropium bromide (ATROVENT) 42 mcg (0 .06 %) nasal spray Use 2 Sprays in the nose twice daily as needed (nasal drainage). albuterol HFA (PROVENTIL HFA, VENTOLIN HFA) 90 m cg/actuation inhaler Inhale 2 Puffs as instructed every 6 hours as needed (cough, wheezing ). hydrocortisone (HYTONE) 2.5 % lotion Apply 1-2 t imes/ day PRN; selectively to the rash or lesions on face, neck, ears, hairline areas. Julian id direct application to eyelids. amLODIPine (NORVASC) 10 mg tablet Take 1 tablet by mouth onc e daily. metFORMIN (GLUCOPHAGE) 500 mg tablet Take 2 tablets by mouth daily with breakfast. albuterol (PROVENTIL) 2.5 mg /3 mL (0.083 %) nebulizer solution Use 3 mL via nebulizer every 6 hours as needed for Wheezing/Shortne ss of Breath. Use over 5-15minutes. Aspirin 81 mg ORAL Tab Take 1 tablet by mouth once daily. FAMILY HISTORY Problem Relation Age of Onset - Cancer Mother age 89 - Coronary Artery Disease Father age 84 - None No Family History Lung disease or lung cancer. Social History Tobacco Use - Smoking status: Former Smoker Years: 30.00 Types: Cigars Last attempt to quit: 08/23/2013 Years since quittin.7 - Smokeless tobacco: Never Used - Tobacco comment: I smoked cigars, never cigarettes. Substance Use Topics - Alcohol use: Yes Alcohol/week: 10.0 standard drinks Types: 1 Glasses of Wine (5oz), 2 Cans of Beer (12oz), 1 Mix ed Drinks per week - Drug use: No PHYSICAL EXAM BP 130/70 Pulse 98 Resp 16 Wt 96.6 kg (213 lb) SpO2 95% BMI 32.39 kg/m? General Appearance: well appearing, in no acute distress, al ert Lungs: rales posteriorly. No wheezing or rhonchi. Good air e xchange. Heart: RRR without murmur, gallop, or rubs. No ectopy Abdomen: Abdomen soft, non-t rere. Bowel sounds normal. No masses, organomegaly Lower Extremities: 2-3+ tosha a BLE with pitting. No cords or calf tenderness. No skin discoloration. Modified Wells Rule for DVT (1pt each) - active cancer (tx or palliation in last 6mo)= 0 - paralysis, paresis or recent leg casting= 0 - bedridden >3D/major surgery w/in 4 wks= 1 - localized tenderness along deep venous system= 0 - entire ext swollen= 0 - unilateral calf swelling >3cm below Tibial tuberosity= 1 - unilateral pitting edema= 1 - prominent non-varicose collateral superficial veins= 0 Score -2 if alt dx as likely as DVT= -2 Score Total: 1 Pretest probabilty: High >= 3, Intermediate 1-2, Low 0 ASSESSMENT/PLAN: 1. Anemia due to gastrointestinal blood loss - ICD9: 280.0, ICD10: D50.0 (primary diagnosis) Repeat Hgb 9.7 on 05/23. Patient feeling better, will start PT/OT. No further black/tarry stools. Follow-up last week with gen eral surgery, medications not addressed. Patient states he was told at discharge to take Carafate for 30 days but unsure about Protonix or resuming baby ASA. Will discuss further with PCP 2. Bilateral lower extremity edema - ICD9: 782.3, ICD10: R60 .0 Likely due to venous insufficiency but in light of recent hospitalization and Wells score 1 will check US LEG VEIN DVT [facility] stat to day - COMPRESSION STOCKINGS, given prescription - Follow-up pending results of ultrasound 3. Venous insufficiency - ICD9: 459.81, ICD10: I87.2 As above - COMPRESSION STOCKINGS 4. Abnormal lung sounds - ICD9: 786.7, ICD10: R09.89 Present during admission. No symptoms consistent with pneumonia. Patient states he does not wear oxygen he was discharged home with last m [facility]. Feels he no longer needs this. Advised to address at pulmonology appoint ment next week 5. CKD (chronic kidney disease) stage 3, GFR 30-59 ml/min (HCC) - ICD9: 585.3, ICD10: N18.3 Improved, stable Prescription instructions reviewed with patient as jarrell licable. Potential red flag symptoms discussed with the patient. Review ed appropriate action plan to take if red flag symptoms occur. Patient agreeable to treatm ent plan. Joanne Dozier APRN.DISCOVERY GUIDE Referring Provider: YAIR MOSELEY [[id number]] Allergies As of Date: 05/30/2019 (No Known Allergies) Date Reviewed: 05/30/2019 Reviewed by: Ly Abdi Pest Control Operator - Fully Assessed Reason for Visit: Hospital Follow Up [177] Primary Visit Diagnosis:Anemia due to gastrointestinal blood loss [D50.0] Other Visit Diagnoses:Bilateral lower extremity edema [R60.0 ] Venous insufficiency [I87.2] Abnormal lung sounds [R09.89] CKD (chronic kidney disease) stage 3, GFR 30-59 ml/min (HCC) [N18.3] Order(s):pantoprazole DR (PROTONIX) 40 mg tabletTake 1 tablet by mouth twice daily. Take on empty stomach, 1/2 hr before meal.Disp: Rfl: sucralfate (CARAFATE) 1 gram tabletTake 1 tablet by mouth be fore meals and at bedtime.Disp: Rfl: US LEG VEIN DVT [facility] [[id number]] Order #: [id number] FU TURE Ferrous Gluconate (FERGON) 324 mg (38 mg iron) tabletTake 1 tablet by mouth daily with breakfast.Disp: Rfl: furosemide (LASIX) 40 mg tabletTake 1 tablet by mouth once d aily as needed.Disp: Rfl: COMPRESSION STOCKINGS [[id number]] Order #: [id number] Prescriptions as of 05/30/2019 Sig: PANTOPRAZOLE 40 MG TABLET,DEL* Take 1 tablet by mouth twice * SUCRALFATE 1 GRAM TABLET Take 1 tablet by mouth before* LISINOPRIL 10 MG TABLET Take 1 tablet by mouth once d* METOPROLOL SUCCINATE ER 50 MG* Take 1 tablet by mouth once d * MUCINEX 600 MG TABLET, EXTEND* Take 2 tablets by mouth twice * IPRATROPIUM BROMIDE 42 MCG (0* Use 2 Sprays in the nose twic * ALBUTEROL SULFATE HFA 90 MCG/* Inhale 2 Puffs as instructed * HYDROCORTISONE 2.5 % LOTION Apply 1-2 times/ day PRN; dottie* AMLODIPINE 10 MG TABLET Take 1 tablet by mouth once d* METFORMIN 500 MG TABLET Take 2 tablets by mouth daily* ALBUTEROL SULFATE 2.5 MG/3 ML* Use 3 mL via nebulizer every * * ASPIRIN 81 MG TABLET Take 1 tablet by mouth once d* FERROUS GLUCONATE 324 MG (38 * Take 1 tablet by mouth daily * FUROSEMIDE 40 MG TABLET Take 1 tablet by mouth once d* Problem List As Of Date 05/30/2019 Noted Resolved Mixed hyperlipidemia [E78.2] More... Diabetes mellitus type 2, controlled, without c* More... Depressive disorder, not elsewhere classified [* 10/28/2011 More... Elevated prostate specific antigen (PSA) [R97.2* 10/28/2011 BPH w/o urinary obs/LUTS [N40.0] 09/15/2010 OVERWEIGHT [E66.9] 09/15/2010 GENERAL OSTEOARTHROSIS [M15.9] 02/03/2005 Depression with anxiety [F41.8] 02/03/2005 Hypertension [I10] 05/05/2005 More... Bladder neck obstruction [N32.0] 05/21/2005 10/28/2011 BPH W URINARY OBS/LUTS [N40.1] 05/21/2005 10/28/2011 Hearing Loss [H91.90] 02/26/2009 AAA (abdominal aortic aneurysm) [I71.4] 09/17/2010 2 Nodule of left lung [R91.1] 09/17/2010 05/02/2015 More... BPH loc w/o ur obs/LUTS [N40.0] 06/24/2011 10/28/2011 Actinic Keratoses (Premalignant AK's) [L57.0] 01/26/201203/2015 Actinic skin damage [L57.8] 01/26/2012 04/10/2014 Solar Lentigines [L81.4] 01/26/2012 04/10/2014 Chronic rhinitis [J31.0] 02/15/2012 Other seborrheic keratosis [L82.1] 03/11/2012 03/27/2015 Hypertrophic scar [L91.0] 03/11/2012 04/10/2014 Scar condition and fibrosis of skin [L90.5] 03/11/201204/10 Xerosis cutis [L85.3] 09/29/2013 03/27/2015 BPH (benign prostatic hyperplasia) [N40.0] 04/10/2014 Bladder cancer (HCC) [C67.9] 11/06/2014 Obesity, Class II, BMI 35-39.9 [E66.9] 02/27/2015 03/31/2019 Multiple thyroid nodules [E04.2] 02/27/2015 02/27/2015 Gout of big toe [M10.9] 06/03/2012 Physical debility [R53.81] 03/19/2016 04/16/2016 Actinic keratosis [L57.0] 08/05/2016 More... Seborrheic dermatitis [L21.9] 01/26/2012 Bronchitis with bronchospasm [J20.9] 01/29/2018 CKD (chronic kidney disease) stage 3, GFR 30-59*01/30/2018 Cavitating mass of lower lobe of left lung [J98*08/25/2018 Obesity, Class I, BMI 30-34.9 [E66.9] 03/31/2019 Transient atrial fibrillation (HCC) [I48.91] 04/27/2019 Acute respiratory failure with hypoxia (HCC) [J*04/27/2019 Sepsis due to Streptococcus pneumoniae without *04/27/2019 Prescriptions ordered this encounter Disp Refills Start End PANTOPRAZOLE 40 MG TABLET,DELAYED RE* 05/30/2019 Class: Med Update Route: ORAL Sig: Take 1 tablet by mouth twice daily. Take on empty stomach, 1/2 hr before meal. SUCRALFATE 1 GRAM TABLET 05/30/2019 Class: Med Update Route: ORAL Sig: Take 1 tablet by mouth before meals and at bedtime. FERROUS GLUCONATE 324 MG (38 MG IRON* 05/30/2019 Class: Med Update Route: ORAL Sig: Take 1 tablet by mouth daily with breakfast. FUROSEMIDE 40 MG TABLET 05/30/2019 Class: Med Update Route: ORAL Sig: Take 1 tablet by mouth once daily as needed. Encounter Status:Closed by JOANNE DOZIER DISCOVERY GUIDE on 05/30/19 progress on 2019-04 PROGRESS HNO ID: [id number] Normal 05-06-2019 [facility] Author: Lori Barrett LPN [place] ([id number]) Service: ? Author Type: ? Type: Progress Notes Filed: 05/06/2019 11:45 AM Note Text: Phoned patient and asked to speak to his Namita and went o jean notes from Dr Moseley, to go to ER with understanding, his hemoglobin is 5.6. PROGRESS HNO ID: [id number] Normal 05-06-2019 [facility] Author: Yair Moseley [place] ([id number]) Service: ? Author Type: Physician Type: Progress Notes Filed: 05/06/2019 11:45 AM Note Text: Hgb worse 5.6. Advise ER for admission, blood transfusion. PROGRESS HNO ID: [id number] Normal 05-06-2019 [facility] Author: Syl Casillas RN [place] ([id number]) Service: ? Author Type: ? Type: Progress Notes Filed: 05/06/2019 11:45 AM Note Text: Patient?s identity has been confirmed by name and birthdate: Yes Call received from Mamta at [facility] lab (#[phone]) 10:55 AM to report an urgent value for HGB with a result of 5.6. Dr. Moseley was notified of the result at 11.01 AM. Mamta reports that other labs are still processing at this t [facility]. Syl Casillas RN PROGRESS HNO ID: [id number] Normal 05-06-2019 [facility] Author: Nevaeh Cheek LPN [place] ([id number]) Service: ? Author Type: ? Type: Progress Notes Filed: 05/06/2019 11:45 AM Note Text: notified, she will take Patient to Lab within hour for blood draw, verbalized understanding. Lab Order faxed to [facility] Lab AND [facility] Scheduling. Nevaeh Cheek RAMSEY PROGRESS HNO ID: [id number] Normal 05-06-2019 [facility] Author: Yair Moseley [place] ([id number]) Service: ? Author Type: Physician Type: Progress Notes Filed: 05/06/2019 11:45 AM Note Text: Transfusion unit closed by time patient checked in with lab. Transfusion not scheduled today. Update patient on symptoms. If with wor sening symptoms of dyspnea, weakness, chest pain, etc. Advise ER. O therwise, send for stat CBC order and retic. count today at [facility] lab. If anemia worse, he may need admission. If stable, outpatien t transfusion on Wednesday. progress on 2019-04 PROGRESS HNO ID: [id number] Normal 05-05-2019 [facility] Author: Misty Vazquez LPN [place] ([id number]) Service: ? Author Type: ? Type: Progress Notes Filed: 05/06/2019 11:45 AM Note Text: Order faxed to [facility] 2 numbers as requested. Pt was instructed to [facility] if before 545 to central registrati on if after 545 then to ER to check in for the type and cross. He does not have to be seen in ER just check in there. Pt is aware. PROGRESS HNO ID: [id number] Normal 05-05-2019 [facility] Author: Yair Moseley [place] ([id number]) Service: ? Author Type: Physician Type: Progress Notes Filed: 05/05/2019 4:40 PM Note Text: Paged by Randi Araiza CEREAL MAKER [facility]. Patient was seen today and looked pale. Black stools mentioned. She got Hgb 6.6. I spoke to Mr. Howard regarding need for transfusion. His sy mptoms were not acute. He was advised ER for any worsening. He agreed to outpatient transfusion. I spoke to Misty to set this up. Plan: type and cross 2 unit PRBC. Transfuse over [address] transfusion H/H. Follow up to evaluate caus e. progress on 2019-04 PROGRESS HNO ID: [id number] Normal 04-27-2019 [facility] Author: Joanne ([place] [employer]aft[employer] Guide) [place] ([id number]) Service: ? Author Type: Nurse Practitioner Type: Progress Notes Filed: 04/27/2019 12:41 PM Note Text: TRANSITION CARE MANAGEMENT (TCM) INITIAL CONTACT Human Resources District Manager Outreach ? Provider Action/FYI: [facility] septic shock, acute hypoxia, pneumonia ? ? Initial contact with patient post discharge, spoke to rogelio jacobson. Patient identified by name and . ? TRANSITION CARE MANAGEMENT INITIAL OUTREACH DOCUMENTATION: No flowsheet data found. ? SUMMARY: -Pt discharged from [facility] on 04/20/2019. -Admitted for: septic shock, acute hypoxia, pneumonia ? Do you have a hospital follow up appointment with your PCP? Appointment on 04/27/2019 with Joanne Dozier CEREAL MAKER . Yes. Remind patient of appointment date, time, and location. If not within 14 calendar days of discharge - please reschedule acc ordingly. ? MEDICATIONS: Many patients have questions or concerns about their medicat ions once they are home. Were you prescribed any new medications? Yes, Levaquin and prednisone taper and others can not walk w ell enough to get rx to go over with me ? Were you told to hold any medications? Yes Were any of your medications discontinued? Yes ? Do you have any questions about getting or taking your medic ations? Aditya, patient said [facility] Home Health nurse coming to see him to day at 430 pm to go over his medications ? Your discharge instructions/After visit Summary (AVS) are im portant in guiding you through the recovery process. Is there anything I might help you understand? Yes, discharge instructions/AVS are inadequate, not clear to the patient. If further clinical clarification is needed - Patient said [facility] home health nurse coming today to go over his medications. ? Do you have all the necessary equipment and supplies at home ? Yes ? Medical records from recent hospitalization: [facility] Patient said he has several appts coming up in next one to t hree weeks with several Dr, did not have paper close at hand to tell me what Dr and what day. Provider Documentation: I have reviewed the patient?s last hospital course including diagnostic testing performed during this hospitalization, their dischar ge medications, and my assessment and plan with the patient and any family members present at today?s visit. CC: Patient presents with: [facility] Follow up HPI Michael Howard is a 84 year old male who presents today for a ben. Date of visit: 04/15 to 04/20 Reason for visit: SOB, cough, fever Hospital course: Pneumonia/sepsis- strep pneumonia and mycoplasma, treated in itially with Zosyn and Vanc, then changed to Levaquin for 10 day course. Acute hypoxic respiratory failure- home oxygen evaluation do ne, 86% on RA so sent home with oxygen 3 liters. Advised to follow-up with enamel dipper, Dr. Britt and appointment has been scheduled . He was seeing Dr. Guevara but would like to change to Dr. Britt. S OB has improved, wearing oxygen continuously. Not coughing as much. Denies fever, chills, chest pain, wheezing. Transient Afib-treated with IV metoprolol and home dose was decreased to 50 mg at discharge. Has follow-up scheduled with cardiologis t. JORGE on CKD stage 3: slightly improved at discharge, lisinopr il decreased to 10 mg daily and lasix changed to as needed. To follow-up with slicing machine operator Dr. Morgan and repeat BMP at that time, appoint ment has been scheduled. Type 2 DM: Historically well controlled, was only taking met formin 1000 mg daily. Blood sugars were elevated during admission due to st eroids and he was placed on sliding scale insulin and Lantus 10 units jose y . Sent home with pens and instructions, no prescriptions given. Checking blood sugars 3 times a day at home. Blood sugars improved today, < 150 an d has not needed sliding scale. Overall patient is feeling better. Still feeling weak but be tter and appetite has improved. Leg swelling has also improved. Home PT/OT started this week. REVIEW OF SYSTEMS See HPI PAST MEDICAL HISTORY Diagnosis Date - AAA (abdominal aortic aneurysm) (HCC) 09/17/2010 - ANXIETY STATE NOS 02/03/2005 - Bladder cancer (HCC) 11/06/2014 - Bladder mass 03/27/2014 - Bladder neck obstruction 05/21/2005 - Cavitating mass of lower lobe of left lung 08/25/2018 - CKD (chronic kidney disease) stage 3, GFR 30-59 ml/min (HC C) 01/30/2018 - Depressive disorder, not elsewhere classified - Elevated prostate specific antigen (PSA) - Gout of big toe 06/03/2012 - Hearing loss 02/26/2009 - Hematuria 04/10/2014 - HYPERTENSION NOS 05/05/2005 - Hypertrophy of prostate without urinary obstruction and ot her lower urinary tract symptoms (LUTS) - HYPERTROPHY PROSTATE WITH OBST 05/21/2005 - Nodule of left lung 09/17/2010 - Obesity, unspecified - Other and unspecified hyperlipidemia - Pneumonia 02/05/2017 - S/P AAA (abdominal aortic aneurysm) repair 02/27/2015 - Seborrheic dermatitis 01/26/2012 - Type II or unspecified type diabetes mellitus without ment ion of complication, not stated as uncontrolled PAST SURGICAL HISTORY Procedure Laterality Date - BRONCHOSCOPY Left 10/26/2018 - COLONOSCOPY - DIAGNOSTIC 02/05/2004 - CT NEEDLE BIOPSY 02/09/2011 Left lung nodule, non diagnostic - CYSTOSCOPY 03/05/2015 - CYSTOSCOPY WITH BLADDER BIOPSY 04/25/2014 - EGD 02/05/2004 - OP FEM ART EXPOS AORT PROSTH 10/15/2010 AAA WITH STENT GRAFT - PAST SURGICAL HISTORY OF 08/2015 skin cancer lesion removal - S VANGUARD PARTIAL KNEE Bilateral 01/2009 bilateral - SIGMOIDOSCOPY FLEX DIAG 06/23/1989 Sigmoidoscopy - TRANSURETHRAL ELEC-SURG PROSTATECTOM 06/2005 TURP ALLERGIES Patient has no known allergies. MEDICATIONS guaiFENesin (MUCINEX) 600 mg 12 hr tablet Take 2 tablets by mouth twice daily. ipratropium bromide (ATROVENT) 42 mcg (0.06 %) nasal spray U se 2 Sprays in the nose twice daily as needed (nasal drainage). albuterol HFA (PROVENTIL HFA, VENTOLIN HFA) 90 mcg/actuation inhaler Inhale 2 Puffs as instructed every 6 hours as needed (cough, wheezing). hydrocortisone (HYTONE) 2.5 % lotion Apply 1-2 times/ day KS N; selectively to the rash or lesions on face, neck, ears, hairline areas. Avoid direct application to eyelids. amLODIPine (NORVASC) 10 mg tablet Take 1 tablet by mouth onc e daily. metoprolol succinate ER (TOPROL XL) 100 mg Tb24 Take 1 table t by mouth once daily. Hydrochlorothiazide 12.5 mg capsule Take 1 capsule by mouth once daily. lisinopril (ZESTRIL, PRINIVIL) 40 mg tablet Take 1 tablet by mouth once daily. metFORMIN (GLUCOPHAGE) 500 mg tablet Take 2 tablets by mouth daily with breakfast. albuterol (PROVENTIL) 2.5 mg /3 mL (0.083 %) nebulizer solut ion Use 3 mL via nebulizer every 6 hours as needed for Wheezing/Shortness of Breath. Use over 5-15minutes. Aspirin 81 mg ORAL Tab Take 1 tablet by mouth once daily. FAMILY HISTORY Problem Relation Age of Onset - Cancer Mother age 89 - Coronary Artery Disease Father age 84 - None No Family History Lung disease or lung cancer. Social History Tobacco Use - Smoking status: Former Smoker Years: 30.00 Types: Cigars Last attempt to quit: 08/23/2013 Years since quittin.6 - Smokeless tobacco: Never Used - Tobacco comment: I smoked cigars, never cigarettes. Substance Use Topics - Alcohol use: Yes Alcohol/week: 10.0 standard drinks Types: 1 Glasses of Wine (5oz), 2 Cans of Beer (12oz), 1 Mix ed Drinks per week - Drug use: No PHYSICAL EXAM BP 130/80 Pulse 68 Temp (!) 35.9 ?C (96.6 ?F) (Temporal) Resp 14 SpO2 92% General Appearance: well appearing, in no acute distress, al ert Lungs: lung sounds diminished posteriorly. No wheezing, rhon chi, rales Heart: Irregularly irregular without murmur, gallop, or rubs . No ectopy Ext: 1+ edema to LLE and trace to RLE ASSESSMENT/PLAN: 1. Sepsis due to Streptococcus pneumoniae without acute orga n dysfunction (HCC) - ICD9: 038.0, 995.91, ICD10: A40.3 (primary diagnosis ) Clinically improved. Levaquin completed. See below 2. Acute respiratory failure with hypoxia (HCC) - ICD9: 518. 81, ICD10: J96.01 stable - Continue with home oxygen - Continue with Prednisone taper until complete - Follow-up with pulmonology as scheduled 3. Transient atrial fibrillation (HCC) - ICD9: 427.31, ICD10 : I48.91 Rate controlled. asymptomatic - Continue with Metoprolol at lower dose of 50 mg - Follow-up with senior system operator as scheduled 4. Acute renal failure superimposed on stage 3 chronic kidne y disease, unspecified acute renal failure type (HCC) - ICD9: 584.9, 58 5.3, ICD10: N17.9, N18.3 Decrease dose of Lisinopril to 10 mg daily, patient was taki ng 40 mg dose that he had at home. Follow-up with nephrology as scheduled. 5. Controlled type 2 diabetes mellitus without complication, without long-term current use of insulin (HCC) - ICD9: 250.00, ICD10 : E11.9 Continue with sliding scale, stop when blood sugars have bee n < 150 for 2 days Continue with Lantus, call office if blood sugars < 100 Follow-up with PCP as scheduled 6. Essential hypertension - ICD9: 401.9, ICD10: I10 Dosage adjustments made due to JORGE and worsening CKD - LISINOPRIL 10 MG TABLET - METOPROLOL SUCCINATE ER 50 MG TABLET,EXTENDED RELEASE 24 H R Prescription instructions reviewed with patient as applicabl e. Potential red flag symptoms discussed with the patient. Reviewed appro priate action plan to take if red flag symptoms occur. Patient agreeable t o treatment plan. Joanne Dozier APRN.CNP cnov on 2019-04-27 CNOV Office Visit (INTMWS) Normal 04-27-[address] [place] [facility] MICHAEL HOWARD ([id number]) 1935 M [facility] Date Time Provider Department ([id number]) 04/27/19 10:40 AM JOANNE DOZIER (MELONY) INTMWS During your visit today, we recorded the following informati on about you: Temperature Pulse Respiration Blood pressure 96.6 degrees 68/minute 14/minute 130/80 Joanne Dozier APRN.CNP 04/27/2019 12:41 PM Signed TRANSITION CARE MANAGEMENT (TCM) INITIAL CONTACT Human Resources District Manager Outreach ? Provider Action/FYI: [facility] septic shock, acute hypoxia, pneumonia ? ? Initial contact with patient post discharge, spoke to rogelio jacobson. Patient identified by name and . ? TRANSITION CARE MANAGEMENT INITIAL OUTREACH DOCUMENTATION: No flowsheet data found. ? SUMMARY: -Pt discharged from [facility] on 04/20/2019. -Admitted for: septic shock, acute hypoxia, pneumonia ? Do you have a hospital follow up appointment with your PCP? Appointment on 04/27/2019 with Joanne Dozier CEREAL MAKER . Yes. Remind patient of appointment date, time, a nd location. If not within 14 calendar days of discharge - please reschedule accordingly. ? MEDICATIONS: Many patients have questions or concerns about their medications once they are home. Were you prescribed any new medications? Yes, Levaquin and prednisone taper and others ca n not walk well enough to get rx to go over with me ? Were you told to hold any medications? Yes Were any of your medications discontinued? Yes ? Do you have any questions about getting or taking your medic ations? Aditya, patient [place] [facility] [place] [facility] to see him today at 430 pm to go over his medications ? Your discharge instructions/After visit Summary (AVS) are important in guiding you through the recovery pro cess. Is there anything I might help you understand? Yes, discharge instructions/AVS are inadequate, not cl ear to the patient. If further clinical clarification is needed - Abbysuki nt said [facility] home health nurse coming today to go over his medications. ? Do you have all the necessary equipment and supplies at home ? Yes ? Medical records from recent hospitalization: [facility] Patient said he has several appts coming up in next one to three weeks with several Dr, did not have paper close at hand to tell me what Dr and what day. Provider Documentation: I have reviewed the patient? s last hospital course including diagnostic testing performed during this hospitalization, their discharge medic ations, and my assessment and plan with the patient and any family members present at today?s visit. CC: Patient presents with: [facility] Follow up HPI Michael Howard is a 84 year old male who presents today for a ben. Date of visit: 04/15 to 04/20 Reason for visit: SOB, cough, fever Hospital course: Pneumonia/sepsis- strep pneumonia and my coplasma, treated initially with Zosyn and Vanc, then changed to Levaquin for 10 day course. Acute hypoxic respiratory failure- home oxygen evaluat ion done, 86% on RA so sent home with oxygen 3 liters. Advised to follow-up w [facility] enamel dipper, Dr. Britt and appointment has been schedule d. He was seeing Dr. Guevara but would like to change to Dr. Britt. SOB has improved, wearin g oxygen continuously. Not coughing as much. Denies fever, chills, chest pain, whee zing. Transient Afib-treated with IV metoprolo l and home dose was decreased to 50 mg at discharge. Has follow-up scheduled with senior system operator. JORGE on CKD stage 3: slightly improved at discharge, lisinopril decreased to 10 mg daily and lasix changed to as needed. To follow-up with slicing machine operator Dr. Morgan and repeat BMP at that time, appointment has been rios eduled. Type 2 DM: Historically well controlled, was only taking met formin 1000 mg daily. Blood sugars were elevated during admissi on due to steroids and he was placed on sliding scale insu randy and Lantus 10 units daily . Sent home with pens and instructions, no prescriptions given. Checki ng blood sugars 3 times a day at home. Blood sugars improved today, < 150 and has not needed sliding scale. Overall patient is feeling better. Still feeling weak but better and appetite has improved. Leg swelling has also improved. Home PT/OT s tarted this week. REVIEW OF SYSTEMS See HPI PAST MEDICAL HISTORY Diagnosis Date - AAA (abdominal aortic aneurysm) (HCC) 09/17/2010 - ANXIETY STATE NOS 02/03/2005 - Bladder cancer (HCC) 11/06/2014 - Bladder mass 03/27/2014 - Bladder neck obstruction 05/21/2005 - Cavitating mass of lower lobe of left lung 08/25/2018 - CKD (chronic kidney disease) stage 3, GFR 30-59 ml/min (HC C) 01/30/2018 - Depressive disorder, not elsewhere classified - Elevated prostate specific antigen (PSA) - Gout of big toe 06/03/2012 - Hearing loss 02/26/2009 - Hematuria 04/10/2014 - HYPERTENSION NOS 05/05/2005 - Hypertrophy of prostate without urinary obstru ction and other lower urinary tract symptoms (LUTS) - HYPERTROPHY PROSTATE WITH OBST 05/21/2005 - Nodule of left lung 09/17/2010 - Obesity, unspecified - Other and unspecified hyperlipidemia - Pneumonia 02/05/2017 - S/P AAA (abdominal aortic aneurysm) repair 02/27/2015 - Seborrheic dermatitis 01/26/2012 - Type II or unspecified type diabetes mellitus without ment ion of complication, not stated as uncontrolled PAST SURGICAL HISTORY Procedure Laterality Date - BRONCHOSCOPY Left 10/26/2018 - COLONOSCOPY - DIAGNOSTIC 02/05/2004 - CT NEEDLE BIOPSY 02/09/2011 Left lung nodule, non diagnostic - CYSTOSCOPY 03/05/2015 - CYSTOSCOPY WITH BLADDER BIOPSY 04/25/2014 - EGD 02/05/2004 - OP FEM ART EXPOS AORT PROSTH 10/15/2010 AAA WITH STENT GRAFT - PAST SURGICAL HISTORY OF 08/2015 skin cancer lesion removal - S VANGUARD PARTIAL KNEE Bilateral 01/2009 bilateral - SIGMOIDOSCOPY FLEX DIAG 06/23/1989 Sigmoidoscopy - TRANSURETHRAL ELEC-SURG PROSTATECTOM 06/2005 TURP ALLERGIES Patient has no known allergies. MEDICATIONS guaiFENesin (MUCINEX) 600 mg 12 hr table t Take 2 tablets by mouth twice daily. ipratropium bromide (ATROVENT) 42 mcg (0 .06 %) nasal spray Use 2 Sprays in the nose twice daily as needed (nasal drainage). albuterol HFA (PROVENTIL HFA, VENTOLIN HFA) 90 m cg/actuation inhaler Inhale 2 Puffs as instructed every 6 hours as needed (cough, wheezing ). hydrocortisone (HYTONE) 2.5 % lotion Apply 1-2 t imes/ day PRN; selectively to the rash or lesions on face, neck, ears, hairline areas. Julian id direct application to eyelids. amLODIPine (NORVASC) 10 mg tablet Take 1 tablet by mouth onc e daily. metoprolol succinate ER (TOPROL XL) 100 mg Tb24 Take 1 tab let by mouth once daily. Hydrochlorothiazide 12.5 mg capsule Take 1 capsule by mouth once daily. lisinopril (ZESTRIL, PRINIVIL) 40 mg tab let Take 1 tablet by mouth once daily. metFORMIN (GLUCOPHAGE) 500 mg tablet Take 2 tablets by mouth daily with breakfast. albuterol (PROVENTIL) 2.5 mg /3 mL (0.083 %) nebulizer solution Use 3 mL via nebulizer every 6 hours as needed for Wheezing/Shortne ss of Breath. Use over 5-15minutes. Aspirin 81 mg ORAL Tab Take 1 tablet by mouth once daily. FAMILY HISTORY Problem Relation Age of Onset - Cancer Mother age 89 - Coronary Artery Disease Father age 84 - None No Family History Lung disease or lung cancer. Social History Tobacco Use - Smoking status: Former Smoker Years: 30.00 Types: Cigars Last attempt to quit: 08/23/2013 Years since quittin.6 - Smokeless tobacco: Never Used - Tobacco comment: I smoked cigars, never cigarettes. Substance Use Topics - Alcohol use: Yes Alcohol/week: 10.0 standard drinks Types: 1 Glasses of Wine (5oz), 2 Cans of Beer (12oz), 1 Mix ed Drinks per week - Drug use: No PHYSICAL EXAM BP 130/80 Pulse 68 Temp (!) 35.9 ?C (96.6 ?F) (Temporal) Resp 14 SpO2 92% General Appearance: well appearing, in no acute distress, al ert Lungs: lung sounds diminished posteriorly. No wheezing, rhon chi, rales Heart: Irregularly irregular without murmur, gallop, or rubs . No ectopy Ext: 1+ edema to LLE and trace to RLE ASSESSMENT/PLAN: 1. Sepsis due to Streptococc us pneumoniae without acute organ dysfunction (HCC) - ICD9: 038.0, 995.91, ICD10: A40.3 (primary diagnosis) Clinically improved. Levaquin completed. See below 2. Acute respiratory failure with hypoxia (HCC) - ICD9: 518.81, ICD10: J96.01 stable - Continue with home oxygen - Continue with Prednisone taper until complete - Follow-up with pulmonology as scheduled 3. Transient atrial fibrillation (HCC) - ICD9: 427.31, ICD10 : I48.91 Rate controlled. asymptomatic - Continue with Metoprolol at lower dose of 50 mg - Follow-up with senior system operator as scheduled 4. Acute renal failure superimposed on stage 3 chronic kidne y disease, unspecified acute renal failure type (HC C) - ICD9: 584.9, 585.3, ICD10: N17.9, N18.3 Decrease dose of Lisinopril to 10 mg jewel ly, patient was taking 40 mg dose that he had at home. Follow-up with nephrology as scheduled. 5. Controlled type 2 diabetes mellitus w ithout complication, without long-term current use of insulin (HCC) - ICD9: 250.00, ICD10: E11.9 Continue with sliding scale, stop when b lood sugars have been < 150 for 2 days Continue with Lantus, call office if blood sugars < 100 Follow-up with PCP as scheduled 6. Essential hypertension - ICD9: 401.9, ICD10: I10 Dosage adjustments made due to JORGE and worsening CKD - LISINOPRIL 10 MG TABLET - METOPROLOL SUCCINATE ER 50 MG TABLET,EXTENDED RELEASE 24 H R Prescription instructions reviewed with patient as jarrell licable. Potential red flag symptoms discussed with the patient. Review ed appropriate action plan to take if red flag symptoms occur. Patient agreeable to treatm ent plan. Joanne Dozier, EDGE CUTTER.MELONY Dozier EDGE CUTTER.MELONY 04/27/2019 11:10 AM Signed There were changes made to your medications during your ho spital admission: Stop hydrochlorothiazide. Decrease Lisinopril to 10 mg daily , prescription sent. Check blood sugars 3 times a day. If blo od sugar is consistently less than 150 for 2 days then stop meal time insulin. If blood sugars consistently less than 100, call office Referring Provider: SELF [[id number]] Allergies As of Date: 04/27/2019 (No Known Allergies) Date Reviewed: 04/27/2019 Reviewed by: Ly Abdi Pest Control Operator - Fully Assessed Reason for Visit: [facility] Follow up [Other] Primary Visit Diagnosis:Sepsis due to Streptococcus pn eumoniae without acute organ dysfunction (HCC) [A40.3] Other Visit Diagnoses:Acute respiratory failure with hypox ia ([facility]) [J96.01] Transient atrial fibrillation ([facility]) [I48.91] Acute renal failure superimposed on stage 3 chronic kidney disease, unspecified acute renal failure type (HCC) [N17.9, N18.3] Controlled type 2 diabetes mellitus without complication, without long-term current use of insulin (HCC) [E11.9] Essential hypertension [I10] Order(s):lisinopril (ZESTRIL, PRINIVIL) 10 mg tabletTake 1 t ablet by mouth once daily.Disp: 30 tabletRfl: 0 metoprolol succinate ER (TOPROL XL) 50 mg 24 hr tabletTake 1 tablet by mouth once daily.Disp: Rfl: Prescriptions as of 04/27/2019 Sig: LISINOPRIL 10 MG TABLET Take 1 tablet by mouth once d* METOPROLOL SUCCINATE ER 50 MG* Take 1 tablet by mouth once d * MUCINEX 600 MG TABLET, EXTEND* Take 2 tablets by mouth twice * IPRATROPIUM BROMIDE 42 MCG (0* Use 2 Sprays in the nose twic * ALBUTEROL SULFATE HFA 90 MCG/* Inhale 2 Puffs as instructed * HYDROCORTISONE 2.5 % LOTION Apply 1-2 times/ day PRN; dottie* AMLODIPINE 10 MG TABLET Take 1 tablet by mouth once d* METFORMIN 500 MG TABLET Take 2 tablets by mouth daily* ALBUTEROL SULFATE 2.5 MG/3 ML* Use 3 mL via nebulizer every * * ASPIRIN 81 MG TABLET Take 1 tablet by mouth once d* Problem List As Of Date 04/27/2019 Noted Resolved Mixed hyperlipidemia [E78.2] More... Diabetes mellitus type 2, controlled, without c* More... Depressive disorder, not elsewhere classified [* 10/28/2011 More... Elevated prostate specific antigen (PSA) [R97.2* 10/28/2011 BPH w/o urinary obs/LUTS [N40.0] 09/15/2010 OVERWEIGHT [E66.9] 09/15/2010 GENERAL OSTEOARTHROSIS [M15.9] 02/03/2005 Depression with anxiety [F41.8] 02/03/2005 Hypertension [I10] 05/05/2005 More... Bladder neck obstruction [N32.0] 05/21/2005 10/28/2011 BPH W URINARY OBS/LUTS [N40.1] 05/21/2005 10/28/2011 Hearing Loss [H91.90] 02/26/2009 AAA (abdominal aortic aneurysm) [I71.4] 09/17/2010 2 Nodule of left lung [R91.1] 09/17/2010 05/02/2015 More... BPH loc w/o ur obs/LUTS [N40.0] 06/24/2011 10/28/2011 Actinic Keratoses (Premalignant AK's) [L57.0] 01/26/201203/2015 Actinic skin damage [L57.8] 01/26/2012 04/10/2014 Solar Lentigines [L81.4] 01/26/2012 04/10/2014 Chronic rhinitis [J31.0] 02/15/2012 Other seborrheic keratosis [L82.1] 03/11/2012 03/27/2015 Hypertrophic scar [L91.0] 03/11/2012 04/10/2014 Scar condition and fibrosis of skin [L90.5] 03/11/201204/10 Xerosis cutis [L85.3] 09/29/2013 03/27/2015 BPH (benign prostatic hyperplasia) [N40.0] 04/10/2014 Bladder cancer (HCC) [C67.9] 11/06/2014 Obesity, Class II, BMI 35-39.9 [E66.9] 02/27/2015 03/31/2019 Multiple thyroid nodules [E04.2] 02/27/2015 02/27/2015 Gout of big toe [M10.9] 06/03/2012 Physical debility [R53.81] 03/19/2016 04/16/2016 Actinic keratosis [L57.0] 08/05/2016 More... Seborrheic dermatitis [L21.9] 01/26/2012 Bronchitis with bronchospasm [J20.9] 01/29/2018 CKD (chronic kidney disease) stage 3, GFR 30-59*01/30/2018 Cavitating mass of lower lobe of left lung [J98*08/25/2018 Obesity, Class I, BMI 30-34.9 [E66.9] 03/31/2019 Transient atrial fibrillation (HCC) [I48.91] 04/27/2019 Acute respiratory failure with hypoxia (HCC) [J*04/27/2019 Sepsis due to Streptococcus pneumoniae without *04/27/2019 Other instructions from your clinician: There were changes made to your medications during your hosp ital admission: Stop hydrochlorothiazide. Decrease Lisinopril to 10 mg daily, prescription sent. Check blood sugars 3 times a day. If blood sugar is consiste ntly less than 150 for 2 days then stop meal time insulin. If blood sugars consistently less than 100, call office Prescriptions ordered this encounter Disp Refills Start End LISINOPRIL 10 MG TABLET 30 t* 0 04/27/2019 Route: ORAL Sig: Take 1 tablet by mouth once daily. METOPROLOL SUCCINATE ER 50 MG TABLET* 04/27/2019 Class: Med Update Route: ORAL Sig: Take 1 tablet by mouth once daily. Medications Discontinued During This Encounter Hydrochlorothiazide 12.5 mg capsule 90 c* 3 03/31/201904/27 Route: ORAL Sig: Take 1 capsule by mouth once daily. Disc: Discontinued by another Health Care Provider lisinopril (ZESTRIL, PRINIVIL) 40 mg* 90 t* 3 12/23/201804/27 Route: ORAL Sig: Take 1 tablet by mouth once daily. Disc: Dosage adjustment metoprolol succinate ER (TOPROL XL) * 90 t* 3 03/31/201904/2019 Route: ORAL Sig: Take 1 tablet by mouth once daily. Disc: Reason for discontinue is not on file. Encounter Status:Closed by JOANNE DOZIER CNP on 04/27/19 cnpn on 2019 CNPN Telephone (INTMWS) Normal 2019 [facility] MICHAEL HOWARD ([id number]) 1935 M [place] Date Time Provider Department ([id number]) 04/22/19 YAIR MOSELEY INTMWS During your visit today, we recorded the following informati on about you: Cecy Wellsflakitorodo RAMSEY 2019 8:34 AM Signed Sara [facility] calling with multiple questions(Please call Sara back /c provider response): Pt discharged f/[facility] on 04/20/19. 1. Given Rx for Lasix 40mg daily prn, and K+ 20mEq daily prn /c lasix. She would like to confirm what Lasix is to be used for? SOB? Swe lling? 2. Given Rx for Ferrous Gluc boy 324mg daily, pharmacy unable to provide, gave OTC Ferrous gluconate 27mg(which includes calcium 110m g), is this ok to take instead? 3. Pt taking Mucinex 600mg 2 BID, will be running out of R x, if to continue will need new Rx. Pending for review. 4. On pt's continue med list /[facility], Ventolin inh aler and atrovent nasal spray listed. Pt states has not been using, please confirm if to r estart? FYI only: Sara is providing diabetes education for pt, s tarted on insulin while in [facility], having some difficulty insulin use comprehensi on. Fatimah Franklin MD 2019 10:42 AM Signed 1) Give the dose was discharged on since patient not yet s een for follow up 2) Okay OTC dose (similar enough--the 324 mg is the whole iron gluconate, the 27 is just the iron mg) 3) RX sent 4)If having issues with wheezing/SOB resume ventolin; if hav ing nasal congestion, may resume atrovent nasal sp ray. If not having either issue, those meds can be prn. Noted RE: insulin issues. Nemesio Celeste 2019 10:49 AM Signed Left message for Sara to return call to nurse. Cecy Juventino MUSTAFA 2019 12:04 PM Signed Sara returned call. Notified of instructions below, she re quested clarification on lasix (prn?), spoke /c Dr. Franklin, to be used prn leg swelling. Nurse notified. She stated pt will need Rxs for Ve ntolin and Atrovent. Rxs pending. Fatimah Franklin MD 2019 1:26 PM Signed The following approved medic ation requests have been transmitted electronically. Signed Prescriptions Disp Refills guaiFENesin (MUCINEX) 600 mg 12 hr tablet 60 tablet 0 Sig: Take 2 tablets by mouth twice daily. JULES: No Authorizing Provider: FATIMAH FRANKLIN ipratropium bromide (ATROVENT) 42 mcg (0.06 %) nasal spray 1 5 mL 5 Sig: Use 2 Sprays in the nose twice daily as needed (nasal d rainage). JULES: No Authorizing Provider: FATIMAH FRANKLIN albuterol HFA (PROVENTIL HFA, VENTOLIN H FA) 90 mcg/actuation inhaler 1 Inhaler 2 Sig: Inhale 2 Puffs as instructed every 6 hours as nee ded (cough, wheezing). JULES: No Authorizing Provider: FATIMAH FRANKLIN MD As discussed with nurse. Reviewed discharge summary diagnoses. For now will use lasix for p rn leg edema. Can discuss with provider at hospital follow up other indications for prn lasix Allergies As of Date: 2019 (No Known Allergies) Date Reviewed: 02/07/2019 Reviewed by: Nevaeh Cheek LPN - Fully Assessed Reason for Visit: Orders [681] Visit Diagnoses:Chronic rhinitis [J31.0] Bronchitis with bronchospasm [J20.9] Order(s):guaiFENesin (MUCINEX) 600 mg 12 hr tabletTake 2 tab lets by mouth twice daily.Disp: 60 tabletRfl: 0 ipratropium bromide (ATROVENT) 42 mcg (0.06 %) nasal sprayUs e 2 Sprays in the nose twice daily as needed (nasal drainage).Di sp: 15 mLRfl: 5 albuterol HFA (PROVENTIL HFA, VENTOLIN HFA) 90 mcg/actuation inhalerInhale 2 Puffs as instructed every 6 hours as needed (cough, wheezing).Disp: 1 InhalerRfl: 2 Prescriptions as of 2019 Sig: MUCINEX 600 MG TABLET, EXTEND* Take 2 tablets by mouth twice * IPRATROPIUM BROMIDE 42 MCG (0* Use 2 Sprays in the nose twic * ALBUTEROL SULFATE HFA 90 MCG/* Inhale 2 Puffs as instructed * HYDROCORTISONE 2.5 % LOTION Apply 1-2 times/ day PRN; dottie* AMLODIPINE 10 MG TABLET Take 1 tablet by mouth once d* METOPROLOL SUCCINATE ER 100 M* Take 1 tablet by mouth once d * HYDROCHLOROTHIAZIDE 12.5 MG C* Take 1 capsule by mouth once * LISINOPRIL 40 MG TABLET Take 1 tablet by mouth once d* METFORMIN 500 MG TABLET Take 2 tablets by mouth daily* ALBUTEROL SULFATE 2.5 MG/3 ML* Use 3 mL via nebulizer every * * ASPIRIN 81 MG TABLET Take 1 tablet by mouth once d* Problem List As Of Date 2019 Noted Resolved Mixed hyperlipidemia [E78.2] More... Diabetes mellitus type 2, controlled, without c* More... Depressive disorder, not elsewhere classified [* 10/28/2011 More... Elevated prostate specific antigen (PSA) [R97.2* 10/28/2011 BPH w/o urinary obs/LUTS [N40.0] 09/15/2010 OVERWEIGHT [E66.9] 09/15/2010 GENERAL OSTEOARTHROSIS [M15.9] 02/03/2005 Depression with anxiety [F41.8] 02/03/2005 Hypertension [I10] 05/05/2005 More... Bladder neck obstruction [N32.0] 05/21/2005 10/28/2011 BPH W URINARY OBS/LUTS [N40.1] 05/21/2005 10/28/2011 Hearing Loss [H91.90] 02/26/2009 AAA (abdominal aortic aneurysm) [I71.4] 09/17/2010 2 Nodule of left lung [R91.1] 09/17/2010 05/02/2015 More... BPH loc w/o ur obs/LUTS [N40.0] 06/24/2011 10/28/2011 Actinic Keratoses (Premalignant AK's) [L57.0] 01/26/201203/2015 Actinic skin damage [L57.8] 01/26/2012 04/10/2014 Solar Lentigines [L81.4] 01/26/2012 04/10/2014 Chronic rhinitis [J31.0] 02/15/2012 Other seborrheic keratosis [L82.1] 03/11/2012 03/27/2015 Hypertrophic scar [L91.0] 03/11/2012 04/10/2014 Scar condition and fibrosis of skin [L90.5] 03/11/201204/10 Xerosis cutis [L85.3] 09/29/2013 03/27/2015 BPH (benign prostatic hyperplasia) [N40.0] 04/10/2014 Bladder cancer (HCC) [C67.9] 11/06/2014 Obesity, Class II, BMI 35-39.9 [E66.9] 02/27/2015 03/31/2019 Multiple thyroid nodules [E04.2] 02/27/2015 02/27/2015 Gout of big toe [M10.9] 06/03/2012 Physical debility [R53.81] 03/19/2016 04/16/2016 Actinic keratosis [L57.0] 08/05/2016 More... Seborrheic dermatitis [L21.9] 01/26/2012 Bronchitis with bronchospasm [J20.9] 01/29/2018 CKD (chronic kidney disease) stage 3, GFR 30-59*01/30/2018 Cavitating mass of lower lobe of left lung [J98*08/25/2018 Obesity, Class I, BMI 30-34.9 [E66.9] 03/31/2019 Prescriptions ordered this encounter Disp Refills Start End MUCINEX 600 MG TABLET, EXTENDED RELE* 60 t* 0 2019 Route: ORAL Sig: Take 2 tablets by mouth twice daily. IPRATROPIUM BROMIDE 42 MCG (0.06 %) * 15 mL 5 2019 Sig: Use 2 Sprays in the nose twice daily as needed (nasal d rainage). ALBUTEROL SULFATE HFA 90 MCG/ACTUATI* 1 In* 2 2019 Cmt: Generic or brand: dispense inhaler preferre d by patient/insurance unless JULES flag is selected. Route: INHALATION Sig: Inhale 2 Puffs as instructed every 6 hours as nee ded (cough, wheezing). Medications Discontinued During This Encounter guaiFENesin (MUCINEX) 600 mg 12 hr t* 0 02/05/2017 2019 Class: Historical Med Route: ORAL Sig: Take 2 tablets by mouth twice daily. Disc: Reason for discontinue is not on file. ipratropium bromide (ATROVENT) 42 mc* 15 mL 5 12/23/20182018 Sig: Use 2 Sprays in the nose twice daily as needed (nasal d rainage). Disc: Reason for discontinue is not on file. albuterol HFA (PROVENTIL HFA, VENTOL* 1 In* 2 09/22/20182018 Route: INHALATION Sig: Inhale 2 Puffs as instructed every 6 hours as nee ded (cough, wheezing). Disc: Reason for discontinue is not on file. Encounter Status:Closed by FATIMAH FRANKLIN MD on 04/22/19 progress on 2019-04 PROGRESS HNO ID: [id number] Normal 04-20-2019 [facility] Author: Sushma (Rn) LEXY Miller ([id number]) Service: ? Author Type: Registered Nurse Type: Progress Notes Filed: 04/20/2019 4:38 PM Note Text: Entered in error cnpn on 2019-04-20 CNPN Telephone (FAMPWS) Normal 04-20-[address] [place] [facility] MICHAEL HOWARD ([id number]) 1935 M [facility] Date Time Provider Department ([id number]) 04/20/19 YAIR MOSELEY During your visit today, we recorded the following informati on about you: Sushma Miller, RN, RN 04/20/2019 4:41 PM Signed Received call from Priti at [facility] re questing verbal ok for Dr Moseley to sign Home Care Orders. The number to Priti is . Not a care coordinated patient Yair Moseley MD 04/21/2019 1:24 PM Signed I'll sign for orders. Check for other TCM needs. Lori Barrett LPN 04/21/2019 2:33 PM Signed See other phone note double request. Allergies As of Date: 04/20/2019 (No Known Allergies) Date Reviewed: 02/07/2019 Reviewed by: Nevaeh Cheek LPN - Fully Assessed Reason for Visit: Medication Question [1478] Prescriptions as of 04/20/2019 Sig: HYDROCORTISONE 2.5 % LOTION Apply 1-2 times/ day PRN; dottie* AMLODIPINE 10 MG TABLET Take 1 tablet by mouth once d* METOPROLOL SUCCINATE ER 100 M* Take 1 tablet by mouth once d * HYDROCHLOROTHIAZIDE 12.5 MG C* Take 1 capsule by mouth once * LISINOPRIL 40 MG TABLET Take 1 tablet by mouth once d* METFORMIN 500 MG TABLET Take 2 tablets by mouth daily* IPRATROPIUM BROMIDE 42 MCG (0* Use 2 Sprays in the nose twic * ALBUTEROL SULFATE HFA 90 MCG/* Inhale 2 Puffs as instructed * ALBUTEROL SULFATE 2.5 MG/3 ML* Use 3 mL via nebulizer every * GUAIFENESIN ER 600 MG TABLET,* Take 2 tablets by mouth twice * * ASPIRIN 81 MG TABLET Take 1 tablet by mouth once d* Problem List As Of Date 04/20/2019 Noted Resolved Mixed hyperlipidemia [E78.2] More... Diabetes mellitus type 2, controlled, without c* More... Depressive disorder, not elsewhere classified [* 10/28/2011 More... Elevated prostate specific antigen (PSA) [R97.2* 10/28/2011 BPH w/o urinary obs/LUTS [N40.0] 09/15/2010 OVERWEIGHT [E66.9] 09/15/2010 GENERAL OSTEOARTHROSIS [M15.9] 02/03/2005 Depression with anxiety [F41.8] 02/03/2005 Hypertension [I10] 05/05/2005 More... Bladder neck obstruction [N32.0] 05/21/2005 10/28/2011 BPH W URINARY OBS/LUTS [N40.1] 05/21/2005 10/28/2011 Hearing Loss [H91.90] 02/26/2009 AAA (abdominal aortic aneurysm) [I71.4] 09/17/2010 2 Nodule of left lung [R91.1] 09/17/2010 05/02/2015 More... BPH loc w/o ur obs/LUTS [N40.0] 06/24/2011 10/28/2011 Actinic Keratoses (Premalignant AK's) [L57.0] 01/26/201203/2015 Actinic skin damage [L57.8] 01/26/2012 04/10/2014 Solar Lentigines [L81.4] 01/26/2012 04/10/2014 Chronic rhinitis [J31.0] 02/15/2012 Other seborrheic keratosis [L82.1] 03/11/2012 03/27/2015 Hypertrophic scar [L91.0] 03/11/2012 04/10/2014 Scar condition and fibrosis of skin [L90.5] 03/11/201204/10 Xerosis cutis [L85.3] 09/29/2013 03/27/2015 BPH (benign prostatic hyperplasia) [N40.0] 04/10/2014 Bladder cancer (HCC) [C67.9] 11/06/2014 Obesity, Class II, BMI 35-39.9 [E66.9] 02/27/2015 03/31/2019 Multiple thyroid nodules [E04.2] 02/27/2015 02/27/2015 Gout of big toe [M10.9] 06/03/2012 Physical debility [R53.81] 03/19/2016 04/16/2016 Actinic keratosis [L57.0] 08/05/2016 More... Seborrheic dermatitis [L21.9] 01/26/2012 Bronchitis with bronchospasm [J20.9] 01/29/2018 CKD (chronic kidney disease) stage 3, GFR 30-59*01/30/2018 Cavitating mass of lower lobe of left lung [J98*08/25/2018 Obesity, Class I, BMI 30-34.9 [E66.9] 03/31/2019 Encounter Status:Closed by SUSHMA MILLER on 04/21/19 progress on 2019-03 PROGRESS HNO ID: [id number] Normal 03-31-2019 [facility] Author: Yair Moseley [place] ([id number]) Service: ? Author Type: Physician Type: Progress Notes Filed: 03/31/2019 9:26 AM Note Text: This note was created using NoteWriter. Subjective Michael Howard is a 83 year old male. He did not pursue physi blanca therapy. He was doing reasonably well with no new concerns. ACTIVE PROBLEM LIST Mixed Hyperlipidemia Diabetes Mellitus Type 2, Controlled, Without Complications (Hcc) Generalized Osteoarthrosis, Unspecified Site Depression With Anxiety Hypertension Hearing Loss Chronic rhinitis Bph (Benign Prostatic Hyperplasia) Bladder Cancer (Hcc) Gout of Big Toe Actinic Keratosis Seborrheic Dermatitis Bronchitis With Bronchospasm Ckd (Chronic Kidney Disease) Stage 3, Gfr 30-59 Ml/Min (Hcc) Cavitating Mass of Lower Lobe of Left Lung Obesity, Class I, Bmi 30-34.9 Current Outpatient Medications Medication Sig - hydroCHLOROthiazide (HYDRODIURIL, ESIDRIX) 25 mg tablet Ta ke 1 tablet by mouth once daily. - metoprolol succinate ER (TOPROL XL) 100 mg Tb24 Take 1 tab let by mouth once daily. - lisinopril (ZESTRIL, PRINIVIL) 40 mg tablet Take 1 tablet by mouth once daily. - metFORMIN (GLUCOPHAGE) 500 mg tablet Take 2 tablets by jacob th daily with breakfast. - ipratropium bromide (ATROVENT) 42 mcg (0.06 %) nasal spray Use 2 Sprays in the nose twice daily as needed (nasal drainage). - albuterol HFA (PROVENTIL HFA, VENTOLIN HFA) 90 mcg/actuati on inhaler Inhale 2 Puffs as instructed every 6 hours as needed (cough, wheezing). - albuterol (PROVENTIL) 2.5 mg /3 mL (0.083 %) nebulizer saida ution Use 3 mL via nebulizer every 6 hours as needed for Wheezing/Shortness of Breath. Use over 5-15minutes. - amLODIPine (NORVASC) 10 mg tablet Take 1 tablet by mouth o nce daily. - hydrocortisone (HYTONE) 2.5 % lotion Apply selectively to the red scaling rash spots or lesions on face (eg sides of nose, genia eks, forehead) and neck and ears and hairline areas: twice to three times p er day (bid to tid) until clear and then try to stop or taper off as able w hen clear. Try to avoid direct application to eyes//eyelids. - guaiFENesin (MUCINEX) 600 mg 12 hr tablet Take 2 tablets b y mouth twice daily. - Aspirin 81 mg ORAL Tab Take 1 tablet by mouth once daily. No current facility-administered medications for this visit. Review of Systems Constitutional: Negative. Respiratory: Positive for cough and shortness of breath. Chronic. Cardiovascular: Negative. Genitourinary: Negative. Neurological: Negative. Objective BP 100/60 (BP Site: Left Arm, BP Position: Sitting, BP Cuff Size: Large Adult) Pulse (!) 54 Resp 16 Wt 102.1 kg (225 lb) BMI 34.21 kg/m? Physical Exam Constitutional: General: He is not in acute distress. Cardiovascular: Rate and Rhythm: Bradycardia present. Pulmonary: Effort: Pulmonary effort is normal. Breath sounds: Rhonchi present. No rales. Musculoskeletal: Right lower leg: No edema. Left lower leg: No edema. Neurological: General: No focal deficit present. Mental Status: He is alert. Gait: Gait normal. Component Latest Ref Rng AND Units 03/24/2019 Glucose 74 - 99 mg/dL 137 (H) BUN 9 - 24 mg/dL 21 Creatinine 0.73 - 1.22 mg/dL 1.29 (H) Sodium 136 - 144 mmol/L 140 Potassium 3.7 - 5.1 mmol/L 4.1 Chloride 97 - 105 mmol/L 102 CO2 22 - 30 mmol/L 26 Anion Gap 9 - 18 mmol/L 12 Calcium 8.5 - 10.2 mg/dL 9.6 eGFR- >60 eGFR-All Other Races . 53 Creatinine, Ur Random (UCRR) 20 - 300 mg/dL 206.7 Albumin, Urine Random mg/L 54.7 Albumin/Creat Ratio <30 mg/g 26 Hemoglobin A1C 4.3 - 5.6 % 7.3 (H) Estimated Average Glucose mg/dL 163 Assessment and Plan 1. CKD (chronic kidney disease) stage 3, GFR 30-59 ml/min ([facility]) - ICD9: 585.3, ICD10: N18.3 (primary diagnosis) Stable. 2. Seborrheic dermatitis - ICD9: 690.10, ICD10: L21.9 Refilled. He mainly used this once daily. - HYDROCORTISONE 2.5 % LOTION 3. Essential hypertension - ICD9: 401.9, ICD10: I10 - good control - AMLODIPINE 10 MG TABLET - METOPROLOL SUCCINATE ER 100 MG TABLET,EXTENDED RELEASE 24 HR - HYDROCHLOROTHIAZIDE 12.5 MG CAPSULE. Dose reduced. - CBC 4. Controlled type 2 diabetes mellitus without complication, without long-term current use of insulin (HCC) - ICD9: 250.00, ICD10 : E11.9 Controlled. - COMP METABOLIC PANEL - LIPID PANEL BASIC - HGB A1C 5. Obesity, Class I, BMI 30-34.9 - ICD9: 278.00, ICD10: E66. 9 Stable Patient indicated understanding and willingness to follow re commendations. Yair Moseley MD cnov on 2019-03-31 CNOV Office Visit (INTMWS) Normal 03-31-[address] [place] [address] MICHAEL Olivares ([id number]) 1935 M [facility] Date Time Provider Department ([id number]) 03/31/19 8:20 AM YAIR MOSELEY INTMWS During your visit today, we recorded the following informati on about you: Pulse Respiration Blood pressure Weight 54/minute 16/minute 100/60 102.1 kg Yair Moseley MD 03/31/2019 9:26 AM Signed This note was created using EarlyTracksriter. Subjective Michael Howard is a 83 year old male. He did not pursue phy sical therapy. He was doing reasonably well with no new concerns. ACTIVE PROBLEM LIST Mixed Hyperlipidemia Diabetes Mellitus Type 2, Controlled, Without Complications (Hcc) Generalized Osteoarthrosis, Unspecified Site Depression With Anxiety Hypertension Hearing Loss Chronic rhinitis Bph (Benign Prostatic Hyperplasia) Bladder Cancer (Hcc) Gout of Big Toe Actinic Keratosis Seborrheic Dermatitis Bronchitis With Bronchospasm Ckd (Chronic Kidney Disease) Stage 3, Gfr 30-59 Ml/Min (Hcc) Cavitating Mass of Lower Lobe of Left Lung Obesity, Class I, Bmi 30-34.9 Current Outpatient Medications Medication Sig - hydroCHLOROthiazide (HYDRODIURIL, ESIDRIX) 25 mg tablet Ta ke 1 tablet by mouth once daily. - metoprolol succinate ER (TOPROL XL) 100 mg Tb2 4 Take 1 tablet by mouth once daily. - lisinopril (ZESTRIL, PRINIVIL) 40 mg tablet Take 1 tablet by mouth once daily. - metFORMIN (GLUCOPHAGE) 500 mg tablet Take 2 tablets by jaocb th daily with breakfast. - ipratropium bromide (ATROVENT) 42 mcg (0.06 %) nasal spray Use 2 Sprays in the nose twice daily as needed (nasal drainage). - albuterol HFA (PROVENTIL H FA, VENTOLIN HFA) 90 mcg/actuation inhaler Inhale 2 Puffs as instructed every 6 hours as needed (cough, wheezing ). - albuterol (PROVENTIL) 2.5 mg /3 mL (0. 083 %) nebulizer solution Use 3 mL via nebulizer every 6 hours as needed for Wheezing/Shortne ss of Breath. Use over 5-15minutes. - amLODIPine (NORVASC) 10 mg tablet Take 1 tablet by mouth o nce daily. - hydrocortisone (HYTONE) 2.5 % lotion Apply selectively t o the red scaling rash spots or lesions on fac e (eg sides of nose, cheeks, forehead) and neck and ears and hairline areas: twice to three times per day (bid to tid) until clear and then try to stop or taper off as able when clear. Try to avoid direct application to eyes//eyelids. - guaiFENesin (MUCINEX) 600 mg 12 hr tablet Take 2 tablets b y mouth twice daily. - Aspirin 81 mg ORAL Tab Take 1 tablet by mouth once daily. No current facility-administered medications for this visit. Review of Systems Constitutional: Negative. Respiratory: Positive for cough and shortness of breath. Chronic. Cardiovascular: Negative. Genitourinary: Negative. Neurological: Negative. Objective BP 100/60 (BP Site: Left Arm, BP Positio n: Sitting, BP Cuff Size: Large Adult) Pulse (!) 54 Resp 16 Wt 102.1 kg (225 lb) BMI 34.21 kg/m? Physical Exam Constitutional: General: He is not in acute distress. Cardiovascular: Rate and Rhythm: Bradycardia present. Pulmonary: Effort: Pulmonary effort is normal. Breath sounds: Rhonchi present. No rales. Musculoskeletal: Right lower leg: No edema. Left lower leg: No edema. Neurological: General: No focal deficit present. Mental Status: He is alert. Gait: Gait normal. Component Latest Ref Rng AND Units 03/24/2019 Glucose 74 - 99 mg/dL 137 (H) BUN 9 - 24 mg/dL 21 Creatinine 0.73 - 1.22 mg/dL 1.29 (H) Sodium 136 - 144 mmol/L 140 Potassium 3.7 - 5.1 mmol/L 4.1 Chloride 97 - 105 mmol/L 102 CO2 22 - 30 mmol/L 26 Anion Gap 9 - 18 mmol/L 12 Calcium 8.5 - 10.2 mg/dL 9.6 eGFR- >60 eGFR-All Other Races . 53 Creatinine, Ur Random (UCRR) 20 - 300 mg/dL 206.7 Albumin, Urine Random mg/L 54.7 Albumin/Creat Ratio <30 mg/g 26 Hemoglobin A1C 4.3 - 5.6 % 7.3 (H) Estimated Average Glucose mg/dL 163 Assessment and Plan 1. CKD (chronic kidney disease) stage 3, GFR 30-59 ml/min ([facility]) - ICD9: 585.3, ICD10: N18.3 (primary diagnosis) Stable. 2. Seborrheic dermatitis - ICD9: 690.10, ICD10: L21.9 Refilled. He mainly used this once daily. - HYDROCORTISONE 2.5 % LOTION 3. Essential hypertension - ICD9: 401.9, ICD10: I10 - good control - AMLODIPINE 10 MG TABLET - METOPROLOL SUCCINATE ER 100 MG TABLET,EXTENDED RELEASE 24 HR - HYDROCHLOROTHIAZIDE 12.5 MG CAPSULE. Dose reduced. - CBC 4. Controlled type 2 diabetes mellitus w ithout complication, without long-term current use of insulin (HCC) - ICD9: 250.00, ICD10: E11.9 Controlled. - COMP METABOLIC PANEL - LIPID PANEL BASIC - HGB A1C 5. Obesity, Class I, BMI 30-34.9 - ICD9: 278.00, ICD10: E66. 9 Stable Patient indicated understanding and willingness to follow re commendations. MD Yair Guthrie MD 03/31/2019 9:06 AM Signed hydrochlorothiazide dose is decreased. Referring Provider: YAIR MOSELEY [[id number]] Allergies As of Date: 03/31/2019 (No Known Allergies) Date Reviewed: 02/07/2019 Reviewed by: Nevaeh Cheek LPN - Fully Assessed Reason for Visit: Established Patient [175] Refill Request [94] Primary Visit Diagnosis:CKD (chronic kid bigg disease) stage 3, GFR 30-59 ml/min ([facility]) [N18.3] Other Visit Diagnoses:Seborrheic dermatitis [L21.9] Essential hypertension [I10] Controlled type 2 diabetes mellitus without complication, without long-term current use of insulin (HCC) [E11.9] Obesity, Class I, BMI 30-34.9 [E66.9] Order(s):hydrocortisone (HYTONE) 2.5 % lotionApply 1-2 times / day PRN; selectively to the rash or lesions on face, neck, ears, hair line areas. Avoid direct application to eyelids.Disp: 60 mLRfl: 1 amLODIPine (NORVASC) 10 mg tabletTake 1 tablet by mouth once daily.Disp: 90 tabletRfl: 3 metoprolol succinate ER (TOPROL XL) 100 mg Qd77Pllo 1 tablet by mouth once daily.Disp: 90 tabletRfl: 3 Hydrochlorothiazide 12.5 mg capsuleTake 1 capsule by mouth o nce daily.Disp: 90 capsuleRfl: 3 CBC [SQCBC] Order #: [id number] FUTURE COMP METABOLIC PANEL [SQCMP] Order #: [id number] FUTURE LIPID PANEL BASIC [SQLIPB] Order #: [id number] FUTURE HGB A1C [MMMZD2G] Order #: [id number] FUTURE Prescriptions as of 03/31/2019 Sig: HYDROCORTISONE 2.5 % LOTION Apply 1-2 times/ day PRN; dottie* AMLODIPINE 10 MG TABLET Take 1 tablet by mouth once d* METOPROLOL SUCCINATE ER 100 M* Take 1 tablet by mouth once d * HYDROCHLOROTHIAZIDE 12.5 MG C* Take 1 capsule by mouth once * LISINOPRIL 40 MG TABLET Take 1 tablet by mouth once d* METFORMIN 500 MG TABLET Take 2 tablets by mouth daily* IPRATROPIUM BROMIDE 42 MCG (0* Use 2 Sprays in the nose twic * ALBUTEROL SULFATE HFA 90 MCG/* Inhale 2 Puffs as instructed * ALBUTEROL SULFATE 2.5 MG/3 ML* Use 3 mL via nebulizer every * GUAIFENESIN ER 600 MG TABLET,* Take 2 tablets by mouth twice * * ASPIRIN 81 MG TABLET Take 1 tablet by mouth once d* Problem List As Of Date 03/31/2019 Noted Resolved Mixed hyperlipidemia [E78.2] More... Diabetes mellitus type 2, controlled, without c* More... Depressive disorder, not elsewhere classified [* 10/28/2011 More... Elevated prostate specific antigen (PSA) [R97.2* 10/28/2011 BPH w/o urinary obs/LUTS [N40.0] 09/15/2010 OVERWEIGHT [E66.9] 09/15/2010 GENERAL OSTEOARTHROSIS [M15.9] 02/03/2005 Depression with anxiety [F41.8] 02/03/2005 Hypertension [I10] 05/05/2005 More... Bladder neck obstruction [N32.0] 05/21/2005 10/28/2011 BPH W URINARY OBS/LUTS [N40.1] 05/21/2005 10/28/2011 Hearing Loss [H91.90] 02/26/2009 AAA (abdominal aortic aneurysm) [I71.4] 09/17/2010 2 Nodule of left lung [R91.1] 09/17/2010 05/02/2015 More... BPH loc w/o ur obs/LUTS [N40.0] 06/24/2011 10/28/2011 Actinic Keratoses (Premalignant AK's) [L57.0] 01/26/201203/2015 Actinic skin damage [L57.8] 01/26/2012 04/10/2014 Solar Lentigines [L81.4] 01/26/2012 04/10/2014 Chronic rhinitis [J31.0] 02/15/2012 Other seborrheic keratosis [L82.1] 03/11/2012 03/27/2015 Hypertrophic scar [L91.0] 03/11/2012 04/10/2014 Scar condition and fibrosis of skin [L90.5] 03/11/201204/10 Xerosis cutis [L85.3] 09/29/2013 03/27/2015 BPH (benign prostatic hyperplasia) [N40.0] 04/10/2014 Bladder cancer (HCC) [C67.9] 11/06/2014 Obesity, Class II, BMI 35-39.9 [E66.9] 02/27/2015 03/31/2019 Multiple thyroid nodules [E04.2] 02/27/2015 02/27/2015 Gout of big toe [M10.9] 06/03/2012 Physical debility [R53.81] 03/19/2016 04/16/2016 Actinic keratosis [L57.0] 08/05/2016 More... Seborrheic dermatitis [L21.9] 01/26/2012 Bronchitis with bronchospasm [J20.9] 01/29/2018 CKD (chronic kidney disease) stage 3, GFR 30-59*01/30/2018 Cavitating mass of lower lobe of left lung [J98*08/25/2018 Obesity, Class I, BMI 30-34.9 [E66.9] 03/31/2019 Other instructions from your clinician: hydrochlorothiazide dose is decreased. Prescriptions ordered this encounter Disp Refills Start End HYDROCORTISONE 2.5 % LOTION 60 mL 1 03/31/2019 Sig: Apply 1-2 times/ day PRN; selectively to the rash or le sions on face, neck, ears, hairline areas. Avoid direct application to eyel ids. AMLODIPINE 10 MG TABLET 90 t* 3 03/31/2019 Route: ORAL Sig: Take 1 tablet by mouth once daily. METOPROLOL SUCCINATE ER 100 MG TABLE* 90 t* 3 03/31/2019 Route: ORAL Sig: Take 1 tablet by mouth once daily. HYDROCHLOROTHIAZIDE 12.5 MG CAPSULE 90 c* 3 03/31/2019 Route: ORAL Sig: Take 1 capsule by mouth once daily. Medications Discontinued During This Encounter hydroCHLOROthiazide (HYDRODIURIL, ES* 90 t* 3 02/07/201903/17 Route: ORAL Sig: Take 1 tablet by mouth once daily. Disc: Reason for discontinue is not on file. hydrocortisone (HYTONE) 2.5 % lotion 60 mL 3 03/21/201803/31 Class: Print RX Sig: Apply selectively to th e red scaling rash spots or lesions on face (eg sides of nose, cheeks, forehead) and neck a nd ears and hairline areas: twice to three times per day (bid to tid) until clear and then try to stop or taper off as able when clear. Try to avoid direct application to eyes//eyelids. Disc: Reason for discontinue is not on file. amLODIPine (NORVASC) 10 mg tablet 90 t* 3 05/09/2018 019 Route: ORAL Sig: Take 1 tablet by mouth once daily. Disc: Reason for discontinue is not on file. metoprolol succinate ER (TOPROL XL) * 90 t* 3 02/07/201903/17 Route: ORAL Sig: Take 1 tablet by mouth once daily. Disc: Reason for discontinue is not on file. Disposition: Return in 4 months (on 08/07/2019). Follow-up and Disposition History Recorded Encounter Status:Closed by YAIR MOSELEY MD on 9 hemoglobin a1c on 2 HbA1c (Bld) [Mass fraction] 7.3 4.3-5.6 % High [facility] ([id number]) Comment: Result Comment: [place] betes Association guidelines indicate that patients with HgbA1c in the range 5.7-6.4% are at increased risk for development of diabetes, and intervention by lifestyle modification may be beneficial. HgbA1c greater o r equal to 6.5% is considered diagnostic of diabetes. Performed By: #### BMP, HBA1 C #### [facility] [address] [place], [place] [address] HbA1c (Bld) [Mass fraction] 163 mg/dL Normal [facility] ([id number]) Comment: Result Comment: eAG: (Estima carlos average glucose) is a calculated value from HgbA1c and is business services representative of the average blood glucose level in the last 2-3 month period. Performed By: #### BMP, HBA1 C #### [place] [address] [place], [place] [address] basic metabolic panl on 2019-03-24 Anion gap [Moles/Vol] 12 9-18 mmol/L Normal 03-24-20 [facility] ([id number]) Comment: Performed By: #### BMP, HBA1 C #### [address] [address] Calcium [Mass/Vol] 9.6 8.5-10.2 mg/dL Normal 03-24-2019 [facility] ([id number]) Comment: Performed By: #### BMP, HBA1 C #### [address] [place] [place], [place] [address] Chloride [Moles/Vol] 102 97-105 mmol/L Normal 9 [facility] ([id number]) Comment: Performed By: #### BMP, HBA1 C #### [address] [place] [place], [place] [address] CO2 [Moles/Vol] 26 22-30 mmol/L Normal 03-24-2019 [facility] ([id number]) Comment: Performed By: #### BMP, HBA1 C #### [address] [place], [place] [address] Creatinine [Mass/Vol] 1.29 0.73-1.22 mg/dL High 03-24-20 [facility] ([id number]) Comment: Performed By: #### BMP, HBA1 C #### [facility] [address] [place], [place] [id number] eGFR- Amer. >60 Normal 03-24-2019 [facility] ([id number]) Comment: Performed By: #### CORNELIO, HBA1 C #### [facility] [address] [place], [place] [id number] GFR/1.73 sq M predicted among 53 . Normal 03-24-2019 [facility] non-blacks MDRD (S/P/Bld) [Vol (73619) rate/Area] Comment: Result Comment: eGFR (Estima carlos GFR) Units of measure: mL/min/1.73 meters squared eGFR is derived from the ree xpressed MDRD Study equation using the following parameters: serum creatinine, age, gender and race. The creatinine assay has been calibrated to be traceable to IDMS. An eGFR <60 mL/min/1.73m2 fo r >3 months is consistent with chronic kidney disease. Refer to KDOQI guidelines for clinical interpretation. In patients with unstable re nal function, e.g. those with acute kidney injury, the eGFR may not accurately reflect actual GFR. Performed By: #### CORNELIO HBA1 C #### [facility] [address] [place], [place] [id number] Glucose [Mass/Vol] 137 74-99 mg/dL High 03-24-2019 [facility] ([id number]) Comment: Result Comment: The [place] Diabetes Association (ADA) provides guidance for cutoff values for fasting glucose and random glucose. The ADA defines fasting as no caloric intake for at least 8 hours. Fas ting plasma glucose results between 100 to 125 mg/dL indicate increased risk for diabetes (prediabetes). Fasting plasma glucose resul ts greater than or equal to 126 mg/dL meet the criteria for diagnosis of diabetes. In the absence of unequivocal hyperglycemia, results should be confirmed by repeat testing. In a patient with classic s ymptoms of hyperglycemia or hyperglycemic crisis, random plasma glucose results greater than or equal to 200 mg/dL meet the criteria for diagnosis of diabetes. Reference: Standards of [facility] Care in Diabetes 2016, [place] Diabetes Association. Diabetes Care. 2016.39(Suppl 1). Performed By: #### BMP, HBA1 C #### [facility] [address] [place], [place] [address] Potassium [Moles/Vol] 4.1 3.7-5.1 mmol/L Normal 03-24-20 19 [facility] ([id number]) Comment: Performed By: #### BMP, HBA1 C #### [facility] [address] [place], [place] [address] Sodium [Moles/Vol] 140 136-144 mmol/L Normal 03-24-2019 [facility] ([id number]) Comment: Performed By: #### BMP, HBA1 C #### [facility] [address] [place], [place] [address] Urea nitrogen [Mass/Vol] 21 9-24 mg/dL Normal 03-24 [facility] ([id number]) Comment: Performed By: #### BMP, HBA1 C #### [facility] [address] [place], [place] [address] albumin/creat ratio on 2019-03-24 Albumin Urine Random 54.7 mg/L Normal 9 [facility] (86582) Comment: Performed By: #### UACR #### [facility] [address] [place], [place] [address] Albumin/Creat Ratio 26 <30 mg/g Normal 03-24-2019 [facility] ([id number]) Comment: Result Comment: Adult Male a nd Female Nephrotic Criteria: <30 mg/g is considered gretel l to mildly increased 30-300 mg/g is considered mo derately increased >300 mg/g is considered stone rely increased KDIGO. (2013). KDIGO 2012 Cl inical Practice Guideline for the Evaluation and Management of Chronic Kidney Disease. Official Journal of the International Society of Nephrology, 3(1), 1-150. Performed By: #### UACR #### [facility] [address] [place], [place] [address] Creatinine,Urine,Ran 206.7 20-300 mg/dL Normal 9 [facility] ([id number]) Comment: Performed By: #### UACR #### [facility] [address] [place], [place] [address] cnpn on 2018-10-29 CNPN Telephone (NAKUL) Normal 10-29-2018 [facility] MICHAEL HOWARD ([id number]) 1935 M NFR ([id number]) Date Time Provider Department 10/29/18 MILLIE GUEVARA During your visit today, we recorded the following informati on about you: Millie Guevara MD 10/29/2018 2:04 PM Signed IMPRESSION: Bronchoscopy findings of small amount of Staph aureus MAY be significant because: - No visible tumor in airway s, and no cancerous cells from bronchial washing or transbronchial biopsy. - No evidence of Legionaire's pneumonia, fungus or TB from cultures so far. RECOMMEND: 1. Complete 14 day course of Dicloxacillin 250 mg 4 times da annie. 2. Repeat CT chest after completion of antibiotic Rx. 3. Appointment with me or Bernice Goyal PA-C after CT to review images and further recommendations. Millie Guevara MD, [facility] Respiratory Marydel Ame Xiong LPN 10/31/2018 9:28 AM Signed Patient notified. PSS, Please assist patient in scheduling CT/appt with Jen. Ame Xiong LPN Allergies As of Date: 10/29/2018 (No Known Allergies) Date Reviewed: 10/29/2018 Reviewed by: Millie Guevara - Fully Assessed Reason for Visit: Results [95] Cmt: Bronchoscopy. Primary Visit Diagnosis:Pneu monia of left lower lobe due to infectious organism (HCC) [J18.1] Other Visit Diagnosis:Pneumonia of left lower lobe due to me thicillin susceptible Staphylococcus aureus (MSSA) ([facility]) [J15.211] Order(s):dicloxacillin (DYNAPEN) 250 mg capsuleTake 1 caps ule by mouth four times daily.Disp: 56 capsuleRfl: 0 CT CHEST WO IVCON [[id number]] Order #: [id number]: 1 FUTURE Prescriptions as of 10/29/2018 Sig: DICLOXACILLIN 250 MG CAPSULE Take 1 capsule by mouth four * ALBUTEROL SULFATE HFA 90 MCG/* Inhale 2 Puffs as instructed * ALBUTEROL SULFATE 2.5 MG/3 ML* Use 3 mL via nebulizer every * ESCITALOPRAM 10 MG TABLET Take 1 tablet by mouth once d* AMLODIPINE 10 MG TABLET Take 1 tablet by mouth once d* IPRATROPIUM BROMIDE 42 MCG (0* Use 2 Sprays in the nose twic * HYDROCHLOROTHIAZIDE 25 MG TAB* Take 1 tablet by mouth once d * METOPROLOL SUCCINATE ER 100 M* Take 1 tablet by mouth once d * HYDROCORTISONE 2.5 % LOTION Apply selectively to the red * LISINOPRIL 40 MG TABLET Take 1 tablet by mouth once d* METFORMIN 500 MG TABLET Take 2 tablets by mouth daily* GUAIFENESIN ER 600 MG TABLET,* Take 2 tablets by mouth twice * * ASPIRIN 81 MG TABLET Take 1 tablet by mouth once d* Problem List As Of Date 10/29/2018 Noted Resolved Mixed hyperlipidemia [E78.2] More... Diabetes mellitus type 2, controlled, without c* More... Depressive disorder, not elsewhere classified [* 10/28/2011 More... Elevated prostate specific antigen (PSA) [R97.2* 10/28/2011 BPH w/o urinary obs/LUTS [N40.0] 09/15/2010 OVERWEIGHT [E66.9] 09/15/2010 GENERAL OSTEOARTHROSIS [M15.9] INVALID FOR* Depression with anxiety [F41.8] INVALID FOR* Hypertension [I10] INVALID FOR* More... Bladder neck obstruction [N32.0] INVALID FOR*10/28/2011 BPH W URINARY OBS/LUTS [N40.1] INVALID FOR*10/28/2011 Hearing Loss [H91.90] INVALID FOR* AAA (abdominal aortic aneurysm) [I71.4] INVALID FOR*10/28/19 12 Nodule of left lung [R91.1] INVALID FOR*05/02/2015 More... BPH loc w/o ur obs/LUTS [N40.0] INVALID FOR*10/28/2011 Actinic Keratoses (Premalignant AK's) [L57.0] INVALID FOR* Actinic skin damage [L57.8] INVALID FOR*04/10/2014 Solar Lentigines [L81.4] INVALID FOR*04/10/2014 Chronic rhinitis [J31.0] INVALID FOR* Other seborrheic keratosis [L82.1] INVALID FOR*03/27/2015 Hypertrophic scar [L91.0] INVALID FOR*04/10/2014 Scar condition and fibrosis of skin [L90.5] INVALID FOR*03/18 Xerosis cutis [L85.3] INVALID FOR*03/27/2015 BPH (benign prostatic hyperplasia) [N40.0] INVALID FOR* Bladder cancer (HCC) [C67.9] INVALID FOR* Obesity, Class II, BMI 35-39.9 [E66.9] INVALID FOR* Multiple thyroid nodules [E04.2] INVALID FOR*02/27/2015 Gout of big toe [M10.9] INVALID FOR* Physical debility [R53.81] INVALID FOR*04/16/2016 Actinic keratosis [L57.0] INVALID FOR* More... Seborrheic dermatitis [L21.9] INVALID FOR* Bronchitis with bronchospasm [J20.9] INVALID FOR* CKD (chronic kidney disease) stage 3, GFR 30-59*INVALID FOR* Cavitating mass of lower lobe of left lung [J98*INVALID FOR* Prescriptions ordered this encounter Disp Refills Start End DICLOXACILLIN 250 MG CAPSULE 56 c* 0 10/29/2018 Route: ORAL Sig: Take 1 capsule by mouth four times daily. Encounter Status:Closed by MILLIE GUEVARA MD on 10/29/18 surgical pathology on 2018-10-26 SURGICAL Specimen originated from [facility] Normal 10-26-2018 [place] [facility] Specimen #: [id number] Hospital Submitting Physician: Millie Guevara M.D. ([id number]) FINAL DIAGNOSIS Left lung, lower lobe, transbronchial biopsy - Bronchial wal l with no pathologic diagnosis. - See comment. CF/ee 10/27/2018 COMMENT This biopsy contains approximately 4 fragments of cartilagin ous airway. No alveolated segments are seen, precluding a definitive evalua tion for interstitial lung disease. No granulomas and no neoplasm are seen. Jessi Oakes M.D. (Electronic Signature) SPECIMEN SUBMITTED A: LEFT LOWER LOBE, TRANSBRONCHIAL, BIOPSY CLINICAL DATA UNRESOLVING LLL INFILTRATE. GROSS DESCRIPTION A. Received in formalin on Telfa gauze are multiple pieces o f singh-white, soft tissue aggregating to 1.4 x 0.2 x 0.2 cm. Totally submi tted in one cassette. Gross examination performed at [facility], [address] [place] [address] 10/26/2018 7:20:02 PM Date of Report: 10/27/2018 Date of Procedure: 10/26/2018 Date of Receipt: 10/26/2018 Submitted by: Millie Guevara M.D. Location: [facility] Diagnostic interpretation performed at [facility], [address] [place] [address]. CLIA Number: [id number] respiratory cult/stain on 2018-10-26 Respiratory Sp. Request/Comment: - Specimen received in sterile co ntainer. Critically 10-26-2018 [place] Cult/Stain Smear Result - Rare Gram pos itive cocci --> ABNORMAL ALERT No Polymorphonuclear Leukocytes abnormal Hospital Culture Result - Rare Staphy lococcus aureus --> ABNORMAL ALERT Insignificant colony count. No further workup. --> ABNORMAL ALERT Moderate Normal respiratory alesia present ([id number]) Comment: Performed By: #### RCULST ## ## [facility] [address] [place] [id number] pt ed on 2018-10-26 PT ED HNO ID: [id number] [place] 10-26-2018 [facility] ([id number]) Author: Syl WildRn) LEXY Flores Service: Nursing Author Type: Registered Nurse Type: Patient Education Filed: 10/26/2018 2:32 PM Note Text: POST OP LEARNING RESPONSE INSTRUCTION PROVIDED TO: Patient and family member METHOD OF INSTRUCTION: Written instruction - handouts Verbal instruction PATIENT / FAMILY RESPONSE: Information received as demonstra carlos by interest and questions FOLLOW-UP PLAN: Patient instructed to call with any further issues SUPPLEMENTAL MATERIAL: None REFERRAL (RECOMMENDATION): None Electronically Signed By: Syl Flores RN In Departme nt: [facility] ENDOSCOPY PT ED HNO ID: [id number] Normal 10-26-2018 [facility] ([id number]) Author: Elida WildRn) LEXY Patton Service: Nursing Author Type: Registered Nurse Type: Patient Education Filed: 10/26/2018 12:20 PM Note Text: PRE OP LEARNING ASSESSMENT PROCEDURE/SURGERY: SURGERY: Bronchoscopy READINESS TO LEARN COGNITIVE ABILITY: Alert and oriented MOTIVATION TO LEARN: Interested FAMILY SUPPORT: High - Very involved in pt care PATIENT LEARNS BEST BY: Written Instruction - Hand-outs Verbal Instruction FACTORS AFFECTING LEARNING: None PHYSICAL LIMITATIONS AFFECTING LEARNING: None Electronically Signed By: Elida Patton RN In Department: [facility] ENDOSCOPY nursing prog on 01-21-12 NURSING HNO ID: [id number] Normal 10-26-2018 [place] PROG Author: Elida WildRn) LEXY Patton [facility] Service: Nursing ([phone]) Author Type: Registered Nurse Type: Nursing Progress Note Filed: 10/26/2018 12:20 PM Note Text: Nursing Progress Note Patient Name: Michael Howard Patient Location: [place] [facility] pt ready for OR, and at bedside with pt at t his time. This note was completed by: Elida Patton RN legionella cult only on 2018-10-26 Legionella Cult Only Sp. Request/Comment: - Speci men received in sterile container. Normal 10-26-2018 [facility] ([id number]) Culture Result - No Legionella species isolated. Comment: Performed By: #### LEGCUL ## ##[facility] [address] [place], [place] [phone] history physical on 2018-10-26 HISTORY PHYSICAL HNO ID: [id number] Normal 10-15 [facility] Author: Millie Guevara ([id number]) Service: Pulmonary Disease Author Type: Physician Type: HANDP Filed: 10/26/2018 12:43 PM Note Text: PROCEDURAL SEDATION HISTORY AND PHYSICAL EXAM SERVICE DATE: 10/26/2018 SERVICE TIME: 12:30 PM Subjective HPI: This is a 83 year old male who presents with cough, spu diana, abnormal. chest imaging. PAST ANESTHESIA HISTORY: No history of adverse event PAST MEDICAL HISTORY Diagnosis Date - AAA (abdominal aortic aneurysm) (HCC) 09/17/2010 - ANXIETY STATE NOS 02/03/2005 - Bladder cancer (HCC) 11/06/2014 - Bladder mass 03/27/2014 - Bladder neck obstruction 05/21/2005 - Cavitating mass of lower lobe of left lung 08/25/2018 - CKD (chronic kidney disease) stage 3, GFR 30-59 ml/min (HC C) 01/30/2018 - Depressive disorder, not elsewhere classified - Elevated prostate specific antigen (PSA) - Gout of big toe 06/03/2012 - Hearing loss 02/26/2009 - Hematuria 04/10/2014 - HYPERTENSION NOS 05/05/2005 - Hypertrophy of prostate without urinary obstruction and ot her lower urinary tract symptoms (LUTS) - HYPERTROPHY PROSTATE WITH OBST 05/21/2005 - Nodule of left lung 09/17/2010 - Obesity, unspecified - Other and unspecified hyperlipidemia - Pneumonia 02/05/2017 - S/P AAA (abdominal aortic aneurysm) repair 02/27/2015 - Seborrheic dermatitis 01/26/2012 - Type II or unspecified type diabetes mellitus without ment ion of complication, not stated as uncontrolled PAST SURGICAL HISTORY Procedure Laterality Date - COLONOSCOPY - DIAGNOSTIC 02/05/2004 - CT NEEDLE BIOPSY 02/09/2011 Left lung nodule, non diagnostic - CYSTOSCOPY 03/05/2015 - CYSTOSCOPY WITH BLADDER BIOPSY 04/25/2014 - EGD 02/05/2004 - OP FEM ART EXPOS AORT PROSTH 6-05-27 AAA WITH STENT GRAFT - PAST SURGICAL HISTORY OF 08/2015 skin cancer lesion removal - S VANGUARD PARTIAL KNEE Sept.2008 bilateral - SIGMOIDOSCOPY FLEX DIAG 06/23/1989 Sigmoidoscopy - TRANSURETHRAL ELEC-SURG PROSTATECTOM 06/2005 TURP Prior to Admission medications as of 10/26/18 1154 Medication Sig Last Dose Taking amLODIPine (NORVASC) 10 mg tablet Take 1 tablet by mouth onc e daily. 10/26/2018 at 0700 Yes ipratropium bromide (ATROVENT) 42 mcg (0.06 %) nasal spray U se 2 Sprays in the nose twice daily as needed (nasal drainage). 10/25/2018 a t 1800 Yes hydroCHLOROthiazide (HYDRODIURIL, ESIDRIX) 25 mg tablet Take 1 tablet by mouth once daily. 10/26/2018 at 0700 Yes metoprolol succinate ER (TOPROL XL) 100 mg Tb24 Take 1 table t by mouth once daily. 10/26/2018 at 0700 Yes hydrocortisone (HYTONE) 2.5 % lotion Apply selectively to th e red scaling rash spots or lesions on face (eg sides of nose, cheeks, for ehead) and neck and ears and hairline areas: twice to three times per d ay (bid to tid) until clear and then try to stop or taper off as able w hen clear. Try to avoid direct application to eyes//eyelids. 10/26/2018 at 0 900 Yes lisinopril (ZESTRIL, PRINIVIL) 40 mg tablet Take 1 tablet by mouth once daily. 10/26/2018 at 0700 Yes guaiFENesin (MUCINEX) 600 mg 12 hr tablet Take 2 tablets by mouth twice daily. 10/25/2018 at 2359 Yes albuterol HFA (PROVENTIL HFA, VENTOLIN HFA) 90 mcg/actuation inhaler Inhale 2 Puffs as instructed every 6 hours as needed (cough, wheezing). 10/23/2018 albuterol (PROVENTIL) 2.5 mg /3 mL (0.083 %) nebulizer solut ion Use 3 mL via nebulizer every 6 hours as needed for Wheezing/Shortness of Breath. Use over 5-15minutes. Unknown at Unknown time escitalopram oxalate (LEXAPRO) 10 mg tablet Take 1 tablet by mouth once daily. metFORMIN (GLUCOPHAGE) 500 mg tablet Take 2 tablets by mouth daily with breakfast. 10/24/2018 Aspirin 81 mg ORAL Tab Take 1 tablet by mouth once daily. 02/2019 ALLERGIES No Known Allergies Objective PHYSICAL EXAM: GENERAL: No Distress, Cooperative SKIN: cOLOR NORMAL. mOIST. ABDOMEN: Not distended. EXTREMITIES: Extremities normal, no deformities, edema, club ana or skin discoloration. Good capillary refill. NEURO: Awake, alert, moves all extremities normally. Follows directions. AIRWAY: Airway Visualization of Uvula: Yes Mouth opening greater than 2 fingerbreadths: Yes Neck Full Range of Motion: Yes LUNGS: Lungs clear to auscultation, Good diaphragmatic excur mendoza CARDIAC: Normal S1 and S2; no rubs, murmurs, or gallops Assessment/Plan ASA Class: ASA Class:: Patient with mild systemic disease Active Problems: * No active hospital problems. * Resolved Problems: * No resolved hospital problems. * Provisional Diagnosis/Treatment Plan: Flexible bronchoscopy with bronchial washing and transbronchial biopsy. SEDATION GOAL: Moderate SIGNATURE: Millie Guevara MD PATIENT NAME: Michael Howard DATE: October 26, 2018 TIME: 12:39 PM PAGER: [phone] fungal culture on Fungal Culture Sp. Request/Comment: - Specimen received in sterile container. Normal 10-26-2018 [facility] ([id number]) Culture Result - No Fungus isolated after 34 days Comment: Performed By: #### FCUL #### [facility] [place], [place] [phone] cytology on 2018-10 CYTOLOGY Specimen originated from [facility] Normal 10-26-2018 [place] Specimen #: [id number] Hospital Submitting Physician: Millie Guevara M.D. ([id number]) SPECIMEN SUBMITTED A: BRONCHIAL LEFT, WASHING FINAL DIAGNOSIS A. BRONCHIAL LEFT, WASHING Rare atypical cells, not diagnostic of malignancy. Staff consultants: Lady Stone. Sami Muse M.D. (Electronic Signature) CLINICAL DATA Unresolving left lower lobe infiltrate. GROSS DESCRIPTION 40cc clear, colorless CytoLyt with particles STAINS A: BRONCHIAL LEFT, WASHING THIN PREP Non-Naturopathic Oncology Provider Date of Report: 10/27/2018 Date of Procedure: 10/26/2018 Date of Receipt: 10/26/2018 Submitted by: Millie Guevara M.D. Location: [facility] Diagnostic interpretation performed at [facility], [address] [facility] [address]. [place] Number: [id number] afb cult and stain on 2018-10-26 AFB Cult and Sp. Request/Comment: - Specimen received in sterile co ntainer. Normal 10-26-2018 [facility] Stain ([id number]) Smear Result - No acid fast bacilli seen by fluorochrome sta in Culture Result - No Acid Fast Bacilli isolated after 42 days Comment: Performed By: #### AFC ####[facility] [id number] [place], [place] [phone] hosp on 2018-09-27 HOSP Patient:Michael Howard Normal 09-28-19 [facility] ([id number]) MRN: Height:5' 8(1.727 m) Weight:225 lb (102.059 kg) Outpatient Medications as of 10/26/18: albuterol HFA (PROVENTIL HFA, VENTOLIN HFA) 90 mcg/actuation inhaler albuterol (PROVENTIL) 2.5 mg /3 mL (0.083 %) nebulizer solut ion escitalopram oxalate (LEXAPRO) 10 mg tablet amLODIPine (NORVASC) 10 mg tablet ipratropium bromide (ATROVENT) 42 mcg (0.06 %) nasal spray hydroCHLOROthiazide (HYDRODIURIL, ESIDRIX) 25 mg tablet metoprolol succinate ER (TOPROL XL) 100 mg Tb24 hydrocortisone (HYTONE) 2.5 % lotion lisinopril (ZESTRIL, PRINIVIL) 40 mg tablet metFORMIN (GLUCOPHAGE) 500 mg tablet guaiFENesin (MUCINEX) 600 mg 12 hr tablet Aspirin 81 mg ORAL Tab Admission/Clinic Administered Medications as of 10/26/18: NaCl 0.9% 2-10 mL Problem List: Mixed hyperlipidemia [E78.2] Diabetes mellitus type 2, controlled, without complications (HCC) [E11.9] Generalized osteoarthrosis, unspecified site [M15.9] Depression with anxiety [F41.8] Hypertension [I10] Hearing loss [H91.90] Chronic rhinitis [J31.0] BPH (benign prostatic hyperplasia) [N40.0] Bladder cancer (HCC) [C67.9] Obesity, Class II, BMI 35-39.9 [E66.9] Gout of big toe [M10.9] Actinic keratosis [L57.0] Seborrheic dermatitis [L21.9] Bronchitis with bronchospasm [J20.9] CKD (chronic kidney disease) stage 3, GFR 30-59 ml/min (HCC) [N18.3] 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 Please place order, will route to [facility] for scheduling. Ame Guevara MD 09/27/2018 8:17 AM Signed Bronchoscopy indicated to ev aluate persistent infiltrate on imaging, but urgency is diminished with negative PET scan. Order placed. Millie Guevara MD, [facility] Res[facility] [address] [place] [address] P: [phone] F: [phone] [email or web address] Jeane Spann 09/27/2018 2:04 PM Signed Spoke with patient and scheduled him for October 26. Vital Signs Vital Sign Description Value / Unit Date Location The following section is limited to 5 en tries per type and includes entries from the following time range: 20200131 - 20200116 6. Body Temperature 96.4 [degF] 01-31-2020 [facility] ([id number]) Body weight 83.46 kg 01-31-2020 [facility] (55310) BP Diastolic 72 mm[Hg] 01-31-2020 [facility] (60216) BP Systolic 130 mm[Hg] 01-31-2020 [facility] (84341) Height 171.7 cm 01-31-2020 [facility] (69351) Pulse (Heart Rate) 76 /min 01-31-[facility] (50184) Pulse Oximetry 90 % 01-31-2020 [facility] (80219) Respiratory Rate 24 /min [facility] Encounters Date Type Reason Provider Location 02-02-2020 - Patient encounter External Provider [facility] 02-02-2020 procedure 01-31-2020 - Patient encounter Pleuritic pain Yair Moseley In ternal Medicine 01-31-2020 procedure [place] Comment: Medicare annual wellness vis it, subsequent (Primary Dx); Pleuritic chest pain; Need for vaccination; Chronic respiratory failure with hypoxia (HCC); Cavitating mass of lower lob e of left lung; Type 2 diabetes mellitus wit h stage 3 chronic kidney disease, without long-term current use of insulin (HCC); Chronic rhinitis; Seborrheic dermatitis; Pulmonary hypertension due t o hypoxia (HCC) 12-21-2019 - Patient encounter Atrial fibrillation Ekg Intm [facility] Int ernal 12-21-2019 procedure [facility] [place] Comment: Transient atrial fibrillatio n (HCC) 02-02-2020 Results Only External Provider External-N on[facility]F Procedures Procedure Name Date Provider Location EXTERNAL IMAGING 02-02-2020 External Provider [facility] ([id number]) INFLUENZA SEASONAL 01-31-2020 Yair Moseley [facility] (01168) QUADRIVALENT HIGH DOSE AGE 65+ Ecg routine ecg w/least 12 lds 12-21-2019 Yair Rodasabebe nael [facility] (16783) w/i&r Plan of Treatment Plan Description Date Location ADVANCE DIRECTIVE ADVANCE DIRECTIVE 01-30-2025 - [facility] DISCUSSION DISCUSSION 01-30-2025 ([id number]) DTAP,TDAP,TD (3 - Tdap) DTAP,TDAP,TD (3 - Tdap) 12-30-2022 - [facility] 12-30-2022 ([id number]) LDL CHOLESTEROL LDL CHOLESTEROL 01-28-2021 - [facility] 01-28-2021 ([id number]) DIABETIC FOOT EXAM DIABETIC FOOT EXAM 12-20-2020 - [facility] 12-20-2020 ([id number]) ALBUMIN/CREAT RATIO RND ALBUMIN/CREAT RATIO RND 07-30-2020 - [facility] UR UR Lab Routine Type 2 01-30-2021 ([id number]) diabetes mellitus with stage 3 chronic kidney disease, without long-term current use of insulin (HCC) Expected: 07/30/2020, Expires: 01/30/2021 Comment: Expected: 07/30/2020, s: 01/30/2021 BMP (BMP) (FOR BMP (BMP) (FOR REMOTE 07-30-2020 - [facility] REMOTE [facility] USE) FH USE) Lab Routine 01-30-2021 ([id number]) Type 2 diabetes mellitus with stage 3 chronic kidney disease, without long-term current use of insulin (HCC) Expected: 07/30/2020, Expires: 01/30/2021 Comment: Expected: 07/30/2020, s: 01/30/2021 CBC CBC Lab Routine Chronic 07-30-2020 - 01-30-2021 [facility] ([id number]) respiratory failure with hypoxia (HCC) Expected: 07/30/2020, Expires: 01/30/2021 Comment: Expected: 07/30/2020, s: 01/30/2021 HGB A1C HGB A1C Lab Routine Type 2 07-30-2020 - 01-31-20 21 [facility] ([id number]) diabetes mellitus with stage 3 chronic kidney disease, without long-term current use of insulin (HCC) Expected: 07/30/2020, Expires: 01/30/2021 Comment: Expected: 07/30/2020, s: 01/30/2021 HBA1C HBA1C 07-28-2020 - [facility] 07-28-2020 ([id number]) DILATED RETINAL EXAM DILATED RETINAL EXAM 07-17-2020 - [facility] 07-17-2020 ([id number]) URINE URINE 03-24-2020 - [facility] ALBUMIN:CREATININE ALBUMIN:CREATININE 03-24-2020 ([id number]) RATIO RATIO INFLUENZA (#1) INFLUENZA (#1) 2020 [facility] (43310) HBA1C HBA1C 09-22-2019 [facility] (35284) LDL CHOLESTEROL LDL CHOLESTEROL 03-22-2019 [facility] (25944) ADVANCE DIRECTIVE ADVANCE DIRECTIVE 1999 [facility] DISCUSSION DISCUSSION (17690) SHINGRIX VACCINE (1 of SHINGRIX VACCINE (1 of 1984 - [facility] 2) 2) 1984 (16681) no information [facility] (81072) no information [facility] (75064) Immunizations Vaccine Notes Status Date Location DT(PEDIATRIC) diphtheria and tetanus (completed) 05-17-2002 - [facility] toxoids, adsorbed for 05-17-2002 (19719 ) pediatric use Influenza Vaccine, influenza virus (completed) 03-13-2013 - [facility] Split-Non Spec vaccine, unspecified 03-13-2013 (4419 5) formulation Influenza Vaccine, influenza virus (completed) 04-29-2012 - [facility] Split-Non Spec vaccine, unspecified 04-29-2012 (4419 5) formulation Influenza Vaccine, influenza virus (completed) 03-12-2010 - [facility] Split-Non Spec vaccine, unspecified 03-12-2010 (4419 5) formulation Influenza Vaccine, influenza virus (completed) 03-22-2007 - [facility] Split-Non Spec vaccine, unspecified 03-22-2007 (4419 5) formulation Influenza Vaccine, influenza virus (completed) 04-12-2006 - [facility] Split-Non Spec vaccine, unspecified 04-12-2006 (4419 5) formulation Influenza Seasonal - influenza, high dose (completed) 02-07-2019 - [facility] High Dose - Age 65+ seasonal, 02-07-2019 (92460) preservative-free Influenza Seasonal - influenza, high dose (completed) 01-29-2018 - [facility] High Dose - Age 65+ seasonal, 01-29-2018 (14455) preservative-free Influenza Seasonal - influenza, high dose (completed) 04-14-2017 - [facility] High Dose - Age 65+ seasonal, 04-14-2017 (86068) preservative-free Influenza Seasonal - influenza, high dose (completed) 02-06-2016 - [facility] High Dose - Age 65+ seasonal, 02-06-2016 (19960) preservative-free Influenza Seasonal - influenza, high dose (completed) 05-02-2015 - [facility] High Dose - Age 65+ seasonal, 05-02-2015 (41742) preservative-free influenza, high-dose, influenza, high-dose, (completed) 01-31-2020 - [facility] quadrivalent vaccine quadrivalent vaccine 01-31-2020 (59365) (FLUZONE HIGH DOSE (FLUZONE HIGH DOSE QUADRIVALENT) QUADRIVALENT) Influenza Seasonal influenza, seasonal, (completed) 05-01-2014 - [facility] Inj Age 3+ injectable 05-01-2014 (39564) Pneumococcal-13 Vac pneumococcal conjugate (completed) 10-30-2014 - [facility] Conjugate vaccine, 13 valent 10-30-2014 (53374) Pneumovax pneumococcal (completed) 10-16-1999 - [facility] polysaccharide vaccine, 10-16-1999 (441 95) 23 valent TD Adult tetanus and diphtheria (completed) 12-30-2012 - [facility] toxoids, adsorbed, 12-30-2012 (34506) preservative free, for adult use (2 Lf of tetanus toxoid and 2 Lf of diphtheria toxoid) Payers Payer Name Policy Number Location [employer] [id number] [facility] (44 195) The following information is from the original human readable contentNo Payer Records FoundNo Payer Records FoundNo Payer Records Found Social History Type Social History Date Location Description Tobacco smoking status Former smoker 12-21-2019 - [facility] NHIS 01-31-2020 (70483) History of tobacco use Current smoker 08-23-2013 [facility] (04301) History of tobacco use Cigar Smoker 08-23-2013 [facility] (73241) Tobacco use and Never used 12-21-2019 - [facility] exposure 01-31-2020 (37840) Alcohol intake Current drinker of 12-21-2019 [facility] alcohol (finding) 01-31-2020 (58901) Alcohol intake 12-21-2019 - [facility] 01-31-2020 (33382) Tobacco Comment I smoked cigars, never 08-23-2018 [facility] cigarettes[facility] 08-23-2018 (82444) Sex Assigned At Not on file [facility] (57821) Exposure to SARS-CoV-2 Not sure [facility] (event) (44625) Exposure to SARS-CoV-2 Unable to assess [facility] (event) (73084) The following information is from the original human readable contentNo Social History Records FoundNo Social History Records FoundNo Social History Records Found Summary Purpose Family History No Family History Records FoundNo Family History Records Found Advance Directives Documents on File Type Date Recorded Patient Configuration Technician Explanati on Advance Directive(s) 10/06/2018 3:02 PM Advance Directive(s) 10/26/2018 1:14 PM History of Past Illness Problem Noted Date Resolved Date Sepsis due to Streptococcus pneumoniae without acute organ 1 06/28/2018 08/09/2019 dysfunction CKD (chronic kidney disease) stage 3, GFR 30-59 ml/min 01/3012/21/2019 Physical debility 03/19/2016 04/16/2016 Obesity, Class II, BMI 35-39.9 02/27/2015 9 Multiple thyroid nodules 02/27/2015 02/27/2015 Xerosis cutis 09/29/2013 03/27/2015 Other seborrheic keratosis 03/11/2012 03/27/2015 Hypertrophic scar 03/11/2012 04/10/2014 Scar condition and fibrosis of skin 03/11/201203/18 Actinic Keratoses (Premalignant AK's) 01/26/2012 Actinic skin damage 01/26/2012 04/10/2014 Solar Lentigines 01/26/2012 04/10/2014 Benign localized hyperplasia of prostate without urinary 12/201110/28/2011 obstruction and other lower urinary tract symptoms (LUTS) AAA (abdominal aortic aneurysm) 09/17/2010 10/28/19 12 Nodule of left lung 09/17/2010 05/02/2015 Overview: Biopsy non diagnostic 01/2011. Serial CT scans per Dr. Arnav Geronimo. Bladder neck obstruction 05/21/2005 10/28/2011 BPH W URINARY OBS/LUTS 05/21/2005 10/28/2011 Depressive disorder, not elsewhere classified 10/28/2011 Last Assessment & Plan: Remains on tx with zoloft- now only taki ng 1/2 tab daily. States this works good for him. Denies low moods. Elevated prostate specific antigen (PSA) 10/28/2011 Hypertrophy of prostate without urinary obstruction and othe r lower 09/15/2010 urinary tract symptoms (LUTS) OVERWEIGHT 09/15/2010 Problem Noted Date Resolved Date Transient atrial fibrillation 04/27/2019 01/31/2020 Sepsis due to Streptococcus pneumoniae without acute organ 1 06/28/2018 08/09/2019 dysfunction CKD (chronic kidney disease) stage 3, GFR 30-59 ml/min 01/3012/21/2019 Physical debility 03/19/2016 04/16/2016 Obesity, Class II, BMI 35-39.9 02/27/2015 9 Multiple thyroid nodules 02/27/2015 02/27/2015 Xerosis cutis 09/29/2013 03/27/2015 Other seborrheic keratosis 03/11/2012 03/27/2015 Hypertrophic scar 03/11/2012 04/10/2014 Scar condition and fibrosis of skin 03/11/201203/18 Actinic Keratoses (Premalignant AK's) 01/26/2012 Actinic skin damage 01/26/2012 04/10/2014 Solar Lentigines 01/26/2012 04/10/2014 Benign localized hyperplasia of prostate without urinary 12/201110/28/2011 obstruction and other lower urinary tract symptoms (LUTS) AAA (abdominal aortic aneurysm) 09/17/2010 10/28/19 12 Nodule of left lung 09/17/2010 05/02/2015 Overview: Biopsy non diagnostic 01/2011. Serial CT scans per Dr. Arnav Geronimo. Bladder neck obstruction 05/21/2005 10/28/2011 BPH W URINARY OBS/LUTS 05/21/2005 10/28/2011 Depressive disorder, not elsewhere classified 10/28/2011 Last Assessment & Plan: Remains on tx with zoloft- now only taki ng 1/2 tab daily. States this works good for him. Denies low moods. Elevated prostate specific antigen (PSA) 10/28/2011 Hypertrophy of prostate without urinary obstruction and othe r lower 09/15/2010 urinary tract symptoms (LUTS) OVERWEIGHT 09/15/2010 Problem Noted Date Resolved Date Transient atrial fibrillation 04/27/2019 01/31/2020 Sepsis due to Streptococcus pneumoniae without acute organ 1 06/28/2018 08/09/2019 dysfunction CKD (chronic kidney disease) stage 3, GFR 30-59 ml/min 01/3012/21/2019 Physical debility 03/19/2016 04/16/2016 Obesity, Class II, BMI 35-39.9 02/27/2015 9 Multiple thyroid nodules 02/27/2015 02/27/2015 Xerosis cutis 09/29/2013 03/27/2015 Other seborrheic keratosis 03/11/2012 03/27/2015 Hypertrophic scar 03/11/2012 04/10/2014 Scar condition and fibrosis of skin 03/11/201203/18 Actinic Keratoses (Premalignant AK's) 01/26/2012 Actinic skin damage 01/26/2012 04/10/2014 Solar Lentigines 01/26/2012 04/10/2014 Benign localized hyperplasia of prostate without urinary 12/201110/28/2011 obstruction and other lower urinary tract symptoms (LUTS) AAA (abdominal aortic aneurysm) 09/17/2010 10/28/19 12 Nodule of left lung 09/17/2010 05/02/2015 Overview: Biopsy non diagnostic 01/2011. Serial CT scans per Dr. Arnav Geronimo. Bladder neck obstruction 05/21/2005 10/28/2011 BPH W URINARY OBS/LUTS 05/21/2005 10/28/2011 Depressive disorder, not elsewhere classified 10/28/2011 Last Assessment & Plan: Remains on tx with zoloft- now only taki ng 1/2 tab daily. States this works good for him. Denies low moods. Elevated prostate specific antigen (PSA) 10/28/2011 Hypertrophy of prostate without urinary obstruction and othe r lower 09/15/2010 urinary tract symptoms (LUTS) OVERWEIGHT 09/15/2010 Assessments Diagnosis Transient atrial fibrillation (HCC) Diagnosis Medicare annual wellness visit, subseque nt - Primary Routine general medical examination at a health care facility Pleuritic chest pain Painful respiration Need for vaccination Need for prophylactic vaccination and in oculation against unspecified single disease Chronic respiratory failure with hypoxia (HCC) Chronic respiratory failure Cavitating mass of lower lobe of left vi ng Other diseases of lung, not elsewhere cl assified Type 2 diabetes mellitus with stage 3 ch ronic kidney disease, without long-term current use of insulin (HCC) Chronic rhinitis Seborrheic dermatitis Seborrheic dermatitis, unspecified Pulmonary hypertension due to hypoxia (H CC) Other chronic pulmonary heart diseases History of Present Illness Yair Moseley H - 01/31/2020 11:38 AM EDT This note was created using mobicanvaster. Subjective Michael Howard is a 84 year old male. He had no new concerns. Dr. Tsai referred him for speech and swallow therapy. Dr. Britt was ordering portable oxygen for him. He had a concentrator at home, but did not use it regularly. His hypertension was controlled. His pleuritic chest pain resolved with gabapentin. Review of Systems Constitutional: Negative for appetite change, chills and fever. HENT: Positive for trouble swallowing. Respiratory: Positive for cough, shortness of breath and wheezing. Cardiovascular: Negative. Negative for chest pain. Gastrointestinal: Negative. Genitourinary: Negative. Musculoskeletal: Negative. Neurological: Negative. Psychiatric/Behavioral: Positive for dysphoric mood. Mild. ACTIVE PROBLEM LIST Mixed Hyperlipidemia Type 2 Diabetes Mellitus With Stage 3 Chronic Kidney Disease, Without Long-Term Current Use of Insulin (Hcc) Generalized Osteoarthrosis, Unspecified Site Depression With Anxiety Hypertensive Kidney Disease With Stage 3 Chronic Kidney Disease (Hcc) Hearing Loss Chronic rhinitis Bph (Benign Prostatic Hyperplasia) History of Bladder Cancer Gout of Big Toe Actinic Keratosis Seborrheic Dermatitis Bronchitis With Bronchospasm Cavitating Mass of Lower Lobe of Left Lung Obesity, Class I, Bmi 30-34.9 Chronic Respiratory Failure With Hypoxia (Hcc) History of Dvt (Deep Vein Thrombosis) Pleuritic Chest Pain Oropharyngeal Dysphagia Pulmonary Hypertension Due to Hypoxia (Hcc) Current Outpatient Medications Medication Sig ? albuterol (PROVENTIL) 2.5 mg /3 mL (0.083 %) nebulizer solution Use 3 mL via nebulizer every 6 hours as needed for Wheezing/Shortness of Breath. Use over 5-15minutes. ? gabapentin (NEURONTIN) 300 mg capsule Take 1 capsule by mouth daily at bedtime for 30 days. For pain. ? lisinopril (ZESTRIL, PRINIVIL) 10 mg tablet Take 1 tablet by mouth once daily. ? metoprolol succinate ER (TOPROL XL) 50 mg 24 hr tablet Take 1 tablet by mouth once daily. ? ipratropium bromide (ATROVENT) 42 mcg (0.06 %) nasal spray Use 2 Sprays in the nose twice daily asneeded (nasal drainage). ? albuterol HFA (PROVENTIL HFA, VENTOLIN HFA) 90 mcg/actuation inhaler Inhale 2 Puffs as instructed every 6 hours as needed (cough, wheezing). ? amLODIPine (NORVASC) 10 mg tablet Take 1 tablet by mouth once daily. ? metFORMIN (GLUCOPHAGE) 500 mg tablet Take 2 tablets by mouth daily with breakfast. ? colchicine 0.6 mg tablet Take 2 tabs by mouth, followed by 1 tab one hour later for gout flare. ? furosemide (LASIX) 40 mg tablet Take 1 tablet by mouth once daily as needed (edema, swelling). ? hydrocortisone (HYTONE) 2.5 % lotion Apply 1-2 times/ day PRN; selectively to the rash or lesions on face, neck, ears, hairline areas. Avoid direct application to eyelids. No current facility-administered medications for this visit. Component Latest Ref Rng & Units 01/29/2020 Protein, Total 6.3 - 8.0 g/dL 7.8 Albumin 3.9 - 4.9 g/dL 4.1 Calcium 8.5 - 10.2 mg/dL 9.9 Bilirubin, Total 0.2 - 1.3 mg/dL 0.3 Alkaline Phosphatase 38 - 113 U/L 119 (H) AST 14 - 40 U/L 19 Glucose 74 - 99 mg/dL 105 (H) BUN 9 - 24 mg/dL 17 Creatinine 0.73 - 1.22 mg/dL 1.21 Sodium 136 - 144 mmol/L 141 Potassium 3.7 - 5.1 mmol/L 4.4 Chloride 97 - 105 mmol/L 104 CO2 22 - 30 mmol/L 26 Anion Gap 9 - 18 mmol/L 11 ALT 10 - 54 U/L 8 (L) eGFR- >60 eGFR-All Other Races . 57 Cholesterol, Total <200 mg/dL 145 Triglyceride <150 mg/dL 183 (H) HDL Cholesterol >39 mg/dL 32 (L) LDL Cholesterol <100 mg/dL 76 Non HDL Cholesterol <130 mg/dL 113 Fasting Time hrs 10 VLDL Cholesterol <30 mg/dL 37 (H) TC:HDL Ratio <5.10 4.53 LDL:HDL Ratio <2.54 2.38 Hemoglobin A1C 4.3 - 5.6 % 6.7 (H) Estimated Average Glucose mg/dL 146 Hemoglobin 13.0 - 17.0 g/dL 14.4 Objective BP 130/72 (BP Site: Left Arm, BP Position: Sitting, BP Cuff Size: Large Adult) Pulse 76 Temp (!)35.8 ?C (96.4 ?F) (Temporal Artery) Resp 24 Ht 171.7 cm (5' 7.6) Wt 83.5 kg (184 lb) SpO2 90% BMI 28.31 kg/m? Physical Exam Constitutional: General: He is not in acute distress. Appearance: He is not diaphoretic. Eyes: General: No scleral icterus. Conjunctiva/sclera: Conjunctivae normal. Neck: Vascular: No carotid bruit. Cardiovascular: Rate and Rhythm: Normal rate and regular rhythm. Heart sounds: No murmur. No gallop. Pulmonary: Effort: No respiratory distress. Breath sounds: Rhonchi and rales present. Abdominal: Palpations: Abdomen is soft. Tenderness: There is no abdominal tenderness. Musculoskeletal: Right lower leg: No edema. Left lower leg: No edema. Lymphadenopathy: Cervical: No cervical adenopathy. Skin: Comments: Diffuse actinic changes. Neurological: General: No focal deficit present. Mental Status: He is alert. Component Latest Ref Rng & Units 01/29/2020 Protein, Total 6.3 - 8.0 g/dL 7.8 Albumin 3.9 - 4.9 g/dL 4.1 Calcium 8.5 - 10.2 mg/dL 9.9 Bilirubin, Total 0.2 - 1.3 mg/dL 0.3 Alkaline Phosphatase 38 - 113 U/L 119 (H) AST 14 - 40 U/L 19 Glucose 74 - 99 mg/dL 105 (H) BUN 9 - 24 mg/dL 17 Creatinine 0.73 - 1.22 mg/dL 1.21 Sodium 136 - 144 mmol/L 141 Potassium 3.7 - 5.1 mmol/L 4.4 Chloride 97 - 105 mmol/L 104 CO2 22 - 30 mmol/L 26 Anion Gap 9 - 18 mmol/L 11 ALT 10 - 54 U/L 8 (L) eGFR- >60 eGFR-All Other Races . 57 Cholesterol, Total <200 mg/dL 145 Triglyceride <150 mg/dL 183 (H) HDL Cholesterol >39 mg/dL 32 (L) LDL Cholesterol <100 mg/dL 76 Non HDL Cholesterol <130 mg/dL 113 Fasting Time hrs 10 VLDL Cholesterol <30 mg/dL 37 (H) TC:HDL Ratio <5.10 4.53 LDL:HDL Ratio <2.54 2.38 Hemoglobin A1C 4.3 - 5.6 % 6.7 (H) Estimated Average Glucose mg/dL 146 Hemoglobin 13.0 - 17.0 g/dL 14.4 Assessment and Plan ASSESSMENT/PLAN: 1. Medicare annual wellness visit, subsequent - ICD9: V70.0, ICD10: Z00.00 (primary diagnosis) See other note. 2. Pleuritic chest pain - ICD9: 786.52, ICD10: R07.81 Controlled. - GABAPENTIN 300 MG CAPSULE 3. Need for vaccination - ICD9: V05.9, ICD10: Z23 - ADMIN OF INFLUENZA VACCINE - INFLUENZA SEASONAL QUADRIVALENT HIGH DOSE AGE 65+ 4. Chronic respiratory failure with hypoxia (HCC) - ICD9: 518.83, 799.02, ICD10: J96.11 - I encouraged oxygen use. - CBC 5. 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 He declined invasive work up. 6. Type 2 diabetes mellitus with stage 3 chronic kidney disease, without long- term current use of insulin (HCC) - ICD9: 250.40, 585.3, ICD10: E11.22, N18.3 Controlled. - Continue current medications - BMP (BMP) (FOR REMOTE COMMUNITY [facility] USE) - HGB A1C - ALBUMIN/CREAT RATIO RND UR 7. Chronic rhinitis - ICD9: 472.0, ICD10: J31.0 Controlled. - IPRATROPIUM BROMIDE 42 MCG (0.06 %) NASAL SPRAY 8. Seborrheic dermatitis - ICD9: 690.10, ICD10: L21.9 - He was encouraged to follow up with dermatology. - HYDROCORTISONE 2.5 % LOTION 9. Pulmonary hypertension due to hypoxia (HCC) - ICD9: 416.8, 799.02, ICD10: I27.23 On echo in 2019. Yair Moseley MD air Moseley - 01/31/2020 11:26 AM EDT Medicare Yearly Visit Medical B eligibilty date 1998 Date of last exam 08/05/2018 PAST MEDICAL HISTORY Diagnosis Date ? AAA (abdominal aortic aneurysm) (HCC) 09/17/2010 ? ANXIETY STATE NOS 02/03/2005 ? Bladder cancer (HCC) 11/06/2014 ? Bladder mass 03/27/2014 ? Bladder neck obstruction 05/21/2005 ? Bleeding duodenal ulcer 05/06/2019 transfused blood ? 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 CKD (chronic kidney disease) stage 3, GFR 30-59 ml/min ([facility]) 01/30/2018 ? Depressive disorder, not elsewhere classified ? Elevated prostate specific antigen (PSA) ? Gout of big toe 06/03/2012 ? Hearing loss 02/26/2009 ? Hematuria 04/10/2014 ? HYPERTENSION NOS 05/05/2005 ? Hypertensive kidney disease with stage 3 chronic kidney disease (HCC) 05/05/2005 ? Hypertrophy of prostate without urinary obstruction and other lower urinary tract symptoms (LUTS) 05/21/2005 ? Mixed hyperlipidemia 02/03/2005 ? Nodule of left lung 09/17/2010 ? Obesity, unspecified ? Pneumonia 02/05/2017 ? Pulmonary hypertension due to hypoxia (HCC) 04/24/2019 ? S/P AAA (abdominal aortic aneurysm) repair 02/27/2015 ? Seborrheic dermatitis 01/26/2012 ? Sepsis due to pneumonia (HCC) 06/16/2018 ? Sepsis due to Streptococcus pneumoniae without acute organ dysfunction (HCC) 04/15/2019 ? Transient atrial fibrillation (HCC) 04/27/2019 ? Type II or unspecified type diabetes mellitus without mention of complication, not stated as uncontrolled 02/03/2005 prior to 2004 PAST SURGICAL HISTORY Procedure Laterality Date ? BRONCHOSCOPY Left 10/26/2018 ? COLONOSCOPY - DIAGNOSTIC 02/05/2004 ? CT NEEDLE BIOPSY 02/09/2011 Left lung nodule, non diagnostic ? CYSTOSCOPY 03/05/2015 ? CYSTOSCOPY WITH BLADDER BIOPSY 04/25/2014 ? EGD 02/05/2004 ? EGD BIOPSY SINGLE/MULTIPLE 05/07/2019 duodenal ulcer ? OP FEM ART EXPOS AORT PROSTH 10/15/2010 AAA WITH STENT GRAFT ? PAST SURGICAL HISTORY OF 08/2015 skin cancer lesion removal ? S VANGUARD PARTIAL KNEE Bilateral 01/2009 bilateral ? SIGMOIDOSCOPY FLEX DIAG 06/23/1989 Sigmoidoscopy ? TRANSURETHRAL ELEC-SURG PROSTATECTOM 06/2005 TURP Patient has no known allergies. Medications reviewed: Yes FAMILY HISTORY Problem Relation Age of Onset ? Cancer Mother age 89 ? Coronary Artery Disease Father age 84 ? None No Family History Lung disease or lung cancer. SOCIAL HISTORY: Social History Tobacco Use ? Smoking status: Former Smoker Years: 30.00 Types: Cigars Quit date: 08/23/2013 Years since quittin.4 ? Smokeless tobacco: Never Used ? Tobacco comment: I smoked cigars, never cigarettes. Substance Use Topics ? Alcohol use: Yes Alcohol/week: 10.0 standard drinks Types: 1 Glasses of Wine (5oz), 2 Cans of Beer (12oz), 1 Mixed Drinks per week ? Drug use: No Michael denies regular aerobic exercise. He watches his diet for sodium, low fat and low cholesterol some of the time. List of current specialists seen: Dr. Britt, pulmonary. Dr. Tsai, ENT. [facility]. End of Live Planning discussed including patients advanced directive wishes: Yes Does patient have an advanced directive or durable power of trademark attorney in place? Yes. PHQ-2 / Depression screen He in the past two weeks admits to having felt down or depressed. Functional Ability/Safety Screen 1. Was the patient's timed Up and Go test unsteady or longer than 30 seconds? No 2. Does the patient need help with the phone, transportation, shopping,preparing meals, housework, laundry, medications or managing money? No 3. Does your home have rugs in the hallway, lack of grab bars in the bathroom, lack of handrails on the stairs or have poor lighting? No Hearing Evaluation: wears hearing aids PHYSICAL EXAM BP 130/72 (BP Site: Left Arm, BP Position: Sitting, BP Cuff Size: Large Adult) Pulse 76 Temp (!)35.8 ?C (96.4 ?F) (Temporal Artery) Resp 24 Ht 171.7 cm (5' 7.6) Wt 83.5 kg (184 lb) SpO2 90% BMI 28.31 kg/m? Alert and oriented X 3: YES Body mass index is 28.31 kg/m?. Visual acuity: OD: 20/200 OS: 20/ 70 OU: 20/40. The Mini Cog(c): Word recall=1/3 + Clock drawing=1/2=2/5. (<3 is positive). ASSESSMENT/PLAN: 84 year old male The following prevention plan was discussed during the office visit and provided to the patient: - Fall avoidance - Vaccines recommended Influenza and Shingrix. Yair Moseley MD documented in this encounter Additional Source Comments FOR RECORDS PERTAINING TO PATIENTS WHO ARE OR HAVE BEEN ENROLLED IN A CHEMICAL DEPENDENCY/SUBSTANCE ABUSE PROGRAM, SOME INFORMATION MAY BE OMITTED. This clinical summary was aggregated from multiple sources. Caution should be exercised in using it in the provision of clinical care. This summary normalizes information from multiple sources, and as a consequence, information in this document may materially changethe coding, format and clinical context of patient data. In addition, data may be omittedin some cases. CLINICAL DECISIONS SHOULD BE BASED ON THE PRIMARY CLINICAL RECORDS. [facility] provides no warranty or guarantee of the accuracy or completeness of information in this document. UNRECOGNIZED CONTENT PROVIDED BELOW FOR UNRECOGNIZED SECTION No Status Records FoundNo Status Records Found UNRECOGNIZED CONTENT PROVIDED BELOW FOR UNRECOGNIZED SECTION INFORMATION SOURCE DATE CREATED AUTHOR AUTHOR'S ORGANIZATIO N 12/07/2018 [facility] DATE CREATED AUTHOR AUTHOR'S ORGANIZATIO N 01/31/2020 [facility] UNRECOGNIZED CONTENT PROVIDED BELOW FOR UNRECOGNIZED SECTION Source Comments In the event this information is protected by the Federal Confidentiality of Alcohol and Drug Abuse Patient Records regulations: The Federal rules restrict any use of the information to criminally investigate or prosecute any alcohol or drug abuse patient.[facility] the event this information is protected by the Federal Confidentiality of Alcohol and Drug Abuse Patient Records regulations: The Federal rules restrict any use of the information to criminally investigate or prosecute any alcohol or drug abuse patient.[facility] the event this information is protected by the Federal Confidentiality of Alcohol and Drug Abuse Patient Records regulations: The Federal rules restrict any use of the information to criminally investigate or prosecute any alcohol or drug abuse patient.[facility] UNRECOGNIZED CONTENT PROVIDED BELOW FOR UNRECOGNIZED SECTION Reason for Visit Reason Comments Medicare Wellness Exam
== END | disposition home or self-care (01) ==
LOC: PSN 08:39
PROVIDERS: PCP Internal Medicine; Referring Provider Internal Medicine Critical Care Medicine; Visit Provider Internal Medicine Critical Care Medicine
DX: R09.02 Hypoxemia (principal)
CPT/HCPCS: 94618

== ENCOUNTER → 2019-10-31 | Outpatient (CLI) | payer MEDICARE, SELFPAY ==
--- NOTE | 2019-10-31 09:37 | RAD_ITS ---
STUDY: X-RAY CHEST REASON FOR EXAM: Male, 84 years old. SOB PATIENT STATES HX OF LUNG and quot;ISSUES and quot; TECHNIQUE: PA and lateral views of the chest. COMPARISON: Comparison is made with prior study dated May 06, 2019. FINDINGS: Since prior study, there has been progressive infiltrates in the lower lobes worse on the left side. There is also evidence of increased markings in the right upper lobe as well as in the lingular segment of left upper lobe. Blunting of the left costophrenic angle. Normal size heart. Normal mediastinum and bennett. Normal visualized pulmonary arteries. There is atherosclerotic calcification of the aortic arch with tortuosity. There are diffuse degenerative changes of the visualized thoracic spine. Normal visualized ribs, clavicles, and shoulders. There is no demonstrated abnormality of the visualized soft tissue structures of the upper abdomen. RAD/Chest PA and Lateral IMPRESSION: Progressive bibasilar infiltrates worse on the left side with blunting of the left costophrenic angle. Increased markings also in the right upper lobe and lingular segment of the left upper lobe. Electronically Signed: Anthony Bowling, at 13:52 EDT , Service support ,
[2019-10-31 11:26] LABS: Anion Gap 7 (5-15); BUN 18 mg/dL (7-18); BUN/Creat Ratio 14.2 RATIO (10-20); Calcium,Total 9.2 mg/dL (8.5-10.1); Chloride 105 mmol/L (98-107); Creatinine, Serum 1.27 mg/dL (0.70-1.30); EST Glomerular Filtration Rate 57 mL/min (>60); Est Glom Filt Rate - Afr Amer 69 mL/min (>60); Glucose 173 mg/dL (74-106); Potassium 4.1 mmol/L (3.5-5.1); Sodium Level 138 mmol/L (136-145)
--- OUTSIDE RECORDS SUMMARY | 2020-03-03 14:07 | XMS RPT_ITS | CCD ---
:1935 External Reference #:[id number] Author Organization [facility] Care Team Providers Name Role Phone Aleshia Moseley Primary Care Provider Medications Medication Name Sig Date Prescriber Location Albuterol albuterol (PROVENTIL) 12-21-2019 [facility] 2.5 mg /3 mL (0.083 ([id number]) %) nebulizer solution Indications: Bronchitis with bronchospasm Use 3 mL via nebulizer every 6 hours as needed for Wheezing/Shortness of Breath. Use over 5-15minutes. 1 Package 11 12/21/2019 Active Comment: Use 3 mL via nebulizer every 6 hours as needed for Wheezing/Shortness of Breath. Use over 5-15minutes . albuterol HFA albuterol HFA [facility] (PROVENTIL HFA, (PROVENTIL HFA [facility] ([id number]) VENTOLIN HFA) 90 VENTOLIN HFA) 90 mcg/actuation inhaler mcg/actuation inhaler Indications: Bronchitis with bronchospasm Inhale 2 Puffs as instructed every 6 hours as needed (cough, wheezing). 1 Inhaler 5 08/09/2019 Active albuterol HFA (PROVENTIL HFA, 08-09-2019 [facility] ([id number]) VENTOLIN HFA) 90 mcg/actuation inhaler Indications: Bronchitis with bronchospasm Inhale 2 Puffs as instructed every 6 hours as needed (cough, wheezing). 1 Inhaler 5 08/09/2019 Active albuterol HFA (PROVENTIL HFA, 08-09-2019 [facility] ([id number]) VENTOLIN HFA) 90 mcg/actuation inhaler Indications: Bronchitis with bronchospasm Inhale 2 Puffs as instructed every 6 hours as needed (cough, wheezing). 1 Inhaler 5 08/09/2019 Active Comment: Inhale 2 Puffs as instructed every 6 hours as needed (cough, wheezing). amLODIPine amLODIPine (NORVASC) 10 08-09-2019 [facility] mg tablet Indications: (4419 5) Essential hypertension Take 1 tablet by mouth once daily. 90 tablet 3 08/09/2019 Active Comment: Take 1 tablet by mouth once daily. Colchicine colchicine 0.6 mg tablet 07-11-2019 [facility] Indications: Gout of big (44 195) toe Take 2 tabs by mouth, followed by 1 tab one hour later for gout flare. 3 tablet 2 07/11/2019 Active Comment: Take 2 tabs by mouth, follow ed by 1 tab one hour later for gout flare. Furosemide furosemide (LASIX) 40 mg 07-11-2019 [facility] tablet Indications: (42038) Bilateral lower extremity edema Take 1 tablet by mouth once daily as needed (edema, swelling). 30 tablet 5 07/11/2019 Active Comment: Take 1 tablet by mouth once daily as needed (edema, swelling). gabapentin gabapentin 12-21-2019 - [facility] (NEURONTIN) 300 mg 03-01-2020 [facility] (87839) capsule Indications: Pleuritic chest pain Take 1 capsule by mouth daily at bedtime for 30 days. For pain. 90 capsule 3 01/31/2020 03/01/2020 Active Comment: Take 1 capsule by mouth jose y at bedtime for 30 days. For pain. Hydrocortisone hydrocortisone 03-31-2019 - [facility] (HYTONE) 2.5 % lotion 01-31-2020 [facility] (50959 ) Indications: Seborrheic dermatitis Apply 1-2 times/ [...] [facility] (ATROVENT) 42 mcg 01-31-2020 [facility] (63595) (0.06 %) nasal spray Indications: Chronic rhinitis Use 2 Sprays in the nose twice daily as needed (nasal drainage). 15 mL 5 01/31/2020 Active Comment: Use 2 Sprays in the nose twi ce daily as needed (nasal drainage). Lisinopril lisinopril (ZESTRIL, 08-09-2019 Yair Moseley [facility] PRINIVIL) 10 mg tablet (4419 5) Indications: Essential hypertension Take 1 tablet by mouth once daily. 90 tablet 3 08/09/2019 Active Comment: Take 1 tablet by mouth once daily. metFORMIN metFORMIN (GLUCOPHAGE) [facility] 500 mg tablet (10485) Indications: Controlled type 2 diabetes mellitus without complication, without long-term current use of insulin (HCC) Take 2 tablets by mouth daily with breakfast. 180 tablet 3 08/09/2019 Active Comment: Take 2 tablets by mouth jose y with breakfast. Metoprolol metoprolol succinate ER 08-09-2019 [facility] (TOPROL XL) 50 mg 24 hr (441 95) tablet Indications: Essential hypertension Take 1 tablet by mouth once daily. 90 tablet 3 08/09/2019 Active Comment: Take 1 tablet by mouth once daily. Problems Active Problems Category Problem Name Status Date Location Anxiety disorders Mixed anxiety and Active 02-03-2005 - [facility] depressive disorder (54136) Cardiac dysrhythmias Atrial fibrillation Active 04-27-2019 - [facility] (57709) Diabetes mellitus without Type 2 diabetes Active [facility] complication mellitus (78336) Disorders of lipid Mixed hyperlipidemia Active 02-03-2005 - [facility] metabolism (92742) Gout and other crystal Podagra Active 06-03-2012 - [facility] arthropathies (27672) Hyperplasia of prostate Benign prostatic Active 04-10-2014 - [facility] hyperplasia (22386) Hypertension with Chronic kidney disease Active 05-05-2005 - [facility] complications and stage 3 due to (75442) secondary hypertension hypertension Osteoarthritis Degenerative joint Active 02-03-2005 - [facility] disease involving (37024) multiple joints Other ear and sense organ Hearing loss Active 02-26-2009 - [facility] disorders (36383) Other gastrointestinal Oropharyngeal dysphagia Active 020 - [facility] disorders (21934) Other lower respiratory Pleuritic pain Active 01-31-2020 - [facility] disease (92769) Other nutritional; Obese class I Active 03-31-2019 - [facility] endocrine; and metabolic (44 195) disorders Other upper respiratory Chronic rhinitis Active 02-15-2012 - [facility] disease (37414) Pulmonary heart disease Pulmonary hypertension Active - [facility] due to lung disease (45201) and/or hypoxia Residual codes; Requires vaccination Active [facility] unclassified (09672) Respiratory failure; Chronic hypoxemic Active 08-09-2019 - [facility] insufficiency; arrest respiratory failure (15454) (adult) Unclassified Patient encounter Active [facility] status (90693) Past or Other Problems Category Problem Name Status Date Location Cancer; other and H/O: malignant Completed 11-06-2014 - [facility] unspecified primary neoplasm (78292) Chronic obstructive Bronchitis Completed 01-29-2018 - [facility] pulmonary disease and (13135 ) bronchiectasis Other inflammatory Seborrheic Completed 01-26-2012 [facility] condition of skin dermatitis (17011) Other lower respiratory Lung mass Completed 08-25-2018 - [facility] disease (13403) Other skin disorders Actinic keratosis Completed 08-05-2016 - [facility] (73905) Phlebitis; H/O: Deep vein Completed 06-02-2019 - [facility] fern thrombophlebitis and thrombosis (29586) thromboembolism Results Result Name Value Range Unit Interpretation Flag Date Location progress on 2020-01 PROGRESS HNO ID: [id number] Normal 01-31-2020 [facility] Author: Yair Moseley [place] ([id number]) Service: ? Author Type: Physician Type: Progress Notes Filed: 01/31/2020 12:55 PM Note Text: This note was created using Admifyter. Subjective Michael Howard is a 84 year [...] , Without Long-Term Current Use of Insulin ([facility]tac, [facility]ated [facility]) Generalized Osteoarthrosis, Unspecified Site Depression With Anxiety Hypertensive Kidney Disease With Stage 3 Chronic Kidney Dise ase (Ltac, Located 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) Current Outpatient Medications Medication Sig - albuterol [...] current medications - BMP (BMP) (FOR REMOTE [facility] USE) - HGB A1C - ALBUMIN/CREAT RATIO [...] 2019. Yair Moseley MD PROGRESS HNO ID: [id number] Normal 01-31-2020 [facility] Author: Yair Moseley [place] ([id number]) Service: ? Author Type: Physician Type: Progress [...] to Streptococcus pneumoniae without acute organ dysfunction ([facility]) 04/15/2019 - Transient atrial fibrillation ([facility]) 04/27/2019 - Type II or unspecified type [...] seen: Dr. Britt, pulmonary. Dr. Tsai, ENT. [facility]. End of Live Planning discussed including patients advanced d irective wishes: Yes Does patient have an advanced directive or durable power of united states attorney in place? Yes. PHQ-2 / Depression [...] CNOV Office Visit (INTMWS) Normal 01-31-20 20 [place] [facility] TRACEESukiMICHAEL Ancelmo ([id number]) 1935 M [facility] Date Time Provider Department ([id number]) 01/31/20 11:20 AM YAIR MOSELEY INTMWS During [...] Diagnosis Date - AAA (abdominal aortic aneurysm) ([facility]) 09/17/2010 - ANXIETY STATE NOS 02/03/2005 - Bladder cancer ([facility]) 11/06/2014 - Bladder mass 03/27/2014 - Bladder [...] with stage 3 chronic kidney di sease ([facility]) 05/05/2005 - Hypertrophy of prostate without urinary obstru ction and other lower urinary tract symptoms (LUTS) 05/21/2005 - Mixed hyperlipidemia 02/03/2005 - Nodule of left lung 09/17/2010 - Obesity, unspecified - Pneumonia 02/05/2017 - Pulmonary hypertension due to hypoxia ([facility]) 04/24/2019 - S/P AAA (abdominal aortic aneurysm) repair 02/27/2015 - Seborrheic dermatitis 01/26/2012 - Sepsis due to pneumonia ([facility]) 06/16/2018 - Sepsis due to Streptococcus pneumoniae without acute organ dysfunction ([facility]) 04/15/2019 - Transient atrial fibrillation ([facility]) 04/27/2019 - Type II or unspecified type [...] seen: Dr. Britt, pulmonary. Dr. Tsai, ENT. [facility]. End of Live Planning discuss ed including patients advanced directive wishes: Yes Does patient have an advanced directive or durable power of united states attorney in place? Yes. PHQ-2 / Depression [...] PM Signed This note was created using RECOMBINETICS. Subjective Michael Howard is a 84 year [...] current medications - BMP (BMP) (FOR REMOTE [facility] USE) - HGB A1C - ALBUMIN/CREAT RATIO [...] Yair Moseley MD Referring Provider: YAIR MOSELEY [[id number]] Allergies As of Date: 01/31/2020 (No Known [...] hypoxia (HCC) [I27.23] Order(s):ADMIN OF INFLUENZA VACCINE [[id number]] Order #: [id number]: 1 INFLUENZA SEASONAL QUADRIVALENT HIGH DOSE AGE 65+ [[id number]] Order #: [id number] gabapentin (NEURONTIN) 300 mg capsuleTake 1 capsule [...] 60 mLRfl: 1 CBC [SQCBC] Order #: [id number] FUTURE BMP (BMP) (FOR REMOTE [facility] USE) [SQRBMP] Order #: [id number] FUTURE HGB A1C [NKKKU0L] Order #: [id number] FUTURE ALBUMIN/CREAT RATIO RND UR [SQUACR] Order #: [id number] FUTU RE Prescriptions as of 01/31/2020 Sig: [...] Cholesterol [Mass/Vol] 145 <200 mg/dL Normal 020 [facility] (71804) Comment: Result Comment: <200 mg/dL, Desirable 200-239 mg/dL, Borderline hi gh >239 mg/dL, High Performed By: #### HGB, CMP, LIPB, HBA1C ####[facility] [place], [place] [phone] Cholesterol in HDL [Mass/Vol] 32 >39 mg/dL Low 01-29-2020 [facility] (45897) Comment: Result Comment: 40-59 mg/dL, Acceptable >59 mg/dL, High: Negative ri sk factor for coronary heart disease <40 mg/dL, Low: Positive ris k factor for coronary heart disease Performed By: #### HGB, CMP, LIPB, HBA1C ####[address] [phone] Cholesterol in LDL 76 <100 mg/dL Normal 01-29-2020 [facility] [Mass/Vol] [place] (24808) Comment: Result Comment: <100 mg/dL, Optimal 100-129 mg/dL, Near optimal/ above optimal 130-159 mg/dL, Borderline hi gh 160-189 mg/dL, High >189 mg/dL, Very high Secondary prevention optimal LDL Cholesterol levels are recommended to be < 70 mg/dL Performed By: #### HGB, CMP, LIPB, HBA1C ####[address] [phone] Fasting Time 10 hrs Normal 01-29-2020 [facility] (50490) Comment: Performed By: #### HGB, CMP, LIPB, HBA1C ####[address] [phone] LDL:HDL Ratio 2.38 <2.54 Normal 01-29-2020 [facility] (69423) Comment: Result Comment: Reference: 1. National Cholesterol Educ ation Program ATP III Guideline At-A-Glance Quick Desk Reference: National Heart, Lung, and Blood Freedom. National Institutes of Health. 2001: NIH Publication No. 01-3305. 2. An International Atherosc lerosis Society position paper: global recommendations for the management of dyslipidemia: executive summary, Atherosclerosis. 2014: 232(2):410-413. Performed By: #### HGB, CMP, LIPB, HBA1C ####[facility] [address] [place], [place] [phone] Non HDL Cholesterol 113 <130 mg/dL Normal 01-29-2020 [facility] (44554) Comment: Result Comment: <130 mg/dL, Optimal 130-159 mg/dL, Near optimal/ above optimal 160-189 mg/dL, Borderline hi gh 190-219 mg/dL, High >219 mg/dL, Very high Secondary prevention optimal non HDL Cholesterol levels are recommended to be < 100 mg/dL Performed By: #### HGB, CMP, LIPB, HBA1C ####[facility] [address] [place] [phone] TC:HDL Ratio 4.53 <5.10 Normal 01-29-2020 [facility] (18771) Comment: Performed By: #### HGB, CMP, LIPB, HBA1C ####[facility] [place] [phone] Triglyceride [Mass/Vol] 183 <150 mg/dL High 2019 [facility] (32440) Comment: Result Comment: <150 mg/dL, Normal 150-199 mg/dL, Borderline hi gh 200-499 mg/dL, High >499 mg/dL, Very high Performed By: #### HGB, CMP, LIPB, HBA1C ####[facility] [address] [place], [place] [phone] VLDL Cholesterol 37 <30 mg/dL High 01-29-2020 [facility] (58191) Comment: Performed By: #### HGB, CMP, LIPB, HBA1C ####[facility] [address] [place], [place] [phone] hemoglobin on 01-28 Hemoglobin (Bld) 14.4 13.0-17.0 g/dL Normal 01-29-2020 [facility] [Mass/Vol] [place] (30437) Comment: Performed By: #### HGB, CMP, LIPB, HBA1C ####[facility] [address] [place], [place] [phone] hemoglobin a1c on 2 HbA1c (Bld) [Mass fraction] 146 mg/dL Normal [facility] (98725) Comment: Result Comment: eAG: (Estima carlos average glucose) is a calculated value from HgbA1c and is labor service representative of the average blood glucose level in the last 2-3 month period. Performed By: #### HGB, CMP, LIPB, HBA1C ####[place] [address] [place], [place] [phone] HbA1c (Bld) [Mass fraction] 6.7 4.3-5.6 % High [facility] (76714) Comment: Result Comment: Japanese Isi betes Association guidelines indicate that patients with HgbA1c in the range 5.7-6.4% are at increased risk for development of diabetes, and intervention by lifestyle modification may be beneficial. HgbA1c greater o r equal to 6.5% is considered diagnostic of diabetes. Performed By: #### HGB, CMP, LIPB, HBA1C ####[place] [address], [place] [phone] comp metabolic panel on 2020-01-29 Albumin [Mass/Vol] 4.1 3.9-4.9 g/dL Normal 01-29-2020 [facility] (52171) Comment: Performed By: #### HGB, CMP, LIPB, HBA1C ####[place] [address] [place], [place] [phone] ALP [Catalytic activity/Vol] 119 38-113 U/L High 0 01-29-2020 [facility] (85532) Comment: Performed By: #### HGB, CMP, LIPB, HBA1C ####[place] [address] [place], [place] [phone] ALT [Catalytic activity/Vol] 8 10-54 U/L Low 0 01-29-2020 [facility] (74473) Comment: Performed By: #### HGB, CMP, LIPB, HBA1C ####[place] [address] [place], [place] [phone] Anion gap [Moles/Vol] 11 9-18 mmol/L Normal 01-29-20 20 [facility] (46954) Comment: Performed By: #### HGB, CMP, LIPB, HBA1C ####[facility] [place], [place] [phone] AST [Catalytic activity/Vol] 19 14-40 U/L Normal 0 01-29-2020 [facility] (27100) Comment: Performed By: #### HGB, CMP, LIPB, HBA1C ####[facility] [place], [place] [phone] Bilirubin [Mass/Vol] 0.3 0.2-1.3 mg/dL Normal 0 [facility] (97508) Comment: Performed By: #### HGB, CMP, LIPB, HBA1C ####[place] [address] [place], [place] [phone] Calcium [Mass/Vol] 9.9 8.5-10.2 mg/dL Normal 01-29-2020 [facility] (19499) Comment: Performed By: #### HGB, CMP, LIPB, HBA1C ####[facility] [place], [place] [phone] Chloride [Moles/Vol] 104 97-105 mmol/L Normal 0 [facility] (97094) Comment: Performed By: #### HGB, CMP, LIPB, HBA1C ####[facility] [place], [place] [phone] CO2 [Moles/Vol] 26 22-30 mmol/L Normal 01-29-2020 [facility] (21078) Comment: Performed By: #### HGB, CMP, LIPB, HBA1C ####[facility] [place], [place] [phone] Creatinine [Mass/Vol] 1.21 0.73-1.22 mg/dL Normal 01-29-20 20 [facility] (25786) Comment: Performed By: #### HGB, CMP, LIPB, HBA1C ####[facility] [address] [place], [place] [phone] eGFR- Amer. >60 Normal 01-29-2020 [facility] (51832) Comment: Performed By: #### HGB, CMP, LIPB, HBA1C ####[facility] [address] [place], [place] [phone] GFR/1.73 sq M predicted among 57 . Normal 01-29-2020 [facility] non-blacks MDRD (S/P/Bld) [Vol (09250) rate/Area] Comment: Result Comment: eGFR (Estima carlos [...] Performed By: #### HGB, CMP, LIPB, HBA1C ####[facility] [address], [place] [phone] Glucose [Mass/Vol] 105 74-99 mg/dL High 01-29-2020 [facility] (00103) Comment: Result Comment: The [place] Diabetes Association (ADA) provides guidance for cutoff [...] for diagnosis of diabetes. Reference: Standards of [facility] Care in Diabetes 2016, Japanese Diabetes Association. Diabetes Care. 2016.39(Suppl 1). Performed By: #### HGB, CMP, LIPB, HBA1C ####[facility] [address] [place], [place] [phone] Potassium [Moles/Vol] 4.4 3.7-5.1 mmol/L Normal 01-29-20 [facility] (92420) Comment: Performed By: #### HGB, CMP, LIPB, HBA1C ####[facility] [address] [place], [place] [phone] Protein [Mass/Vol] 7.8 6.3-8.0 g/dL Normal 01-29-2020 [facility] (02260) Comment: Performed By: #### HGB, CMP, LIPB, HBA1C ####[facility] [address] [place], [place] [phone] Sodium [Moles/Vol] 141 136-144 mmol/L Normal 01-29-2020 [facility] (49033) Comment: Performed By: #### HGB, CMP, LIPB, HBA1C ####[facility] [address] [place], [place] [phone] Urea nitrogen [Mass/Vol] 17 9-24 mg/dL Normal 01-28 [facility] (10079) Comment: Performed By: #### HGB, CMP, LIPB, HBA1C ####[facility] [address] [place], [place] [phone] No panel information on 2019-12-29 Bakery Supervisor NAME : MICHAEL HOWARD [birth year][address] [place] [address] PID : [id number] ([id number]) : 1935 Gender : Male Race : ORD : [id number] Procedure Date : Dec 21 2019 08:40:20 [...] ms QTC Calculation(Bazett) : 412 ms P [place] : -17 degrees R [place] : -18 degrees T [place] : 25 degrees Test Reason : Location : 185 : [facility] Overread By : GONZÁLEZ FELIPE M.D. Edited By : GONZÁLEZ FELIPE M.D. Referred By : YAIR MOSELEY Acquired by : david STEVENSON on 2019-12 PROGRESS HNO ID: [id number] Normal 12-21-2019 [facility] Author: Yair Moseley [place] ([id number]) Service: ? Author Type: Physician Type: Progress Notes Filed: 12/21/2019 9:07 AM Note Text: This note was created using Admifyter. Subjective Michael Howard is a 84 year [...] ECG COMPLETE NAME : MICHAEL HOWARD 12-21-19 [facility] PID : [id number] Osbaldo quach ([id number]) : 1935 Gender : Male Race : ORD : [id number] Procedure Date : Dec 21 2019 08:40:20 [...] ms QTC Calculation(Bazett) : 412 ms P [place] : -17 degrees R [place] : -18 degrees T [place] : 25 degrees Test Reason : Location : 185 : [facility] Overread By : GONZÁLEZ FELIPE M.D. Edited By : GONZÁLEZ FELIPE M.D. Referred By : YAIR MOSELEY Acquired by : josh STEVENSON on 2019-12-21 CNOV Office Visit (INTMWS) Normal 12-21-[address] [place] [address] [facility] MICHAEL HOWARD ([id number]) 1935 [facility] Date Time Provider Department ([id number]) 12/21/19 8:00 AM YAIR MOSELEY INTMWS During your visit today, we recorded the following informati on about you: Temperature Pulse Respiration Blood pressure 97.8 degrees 104/minute 28/minute 130/80 Yair Moseley MD 12/21/2019 9:07 AM Signed This note was created using WePayriter. Subjective Michael Howard is a 84 year [...] Yair Moseley MD Referring Provider: YAIR MOSELEY [[id number]] Allergies As of Date: 12/21/2019 (No Known Allergies) Date Reviewed: 06/19/2019 Reviewed by: Ly Abdi Writing Tutor - Fully Assessed Reason for Visit: 4 month follow-up [Other] Primary Visit Diagnosis:Transient atrial fibrillation (HCC) [I48.91] Other Visit Diagnoses:Bronchitis with bronchospasm [J20.9] Pleuritic chest pain [R07.81] Type 2 diabetes mellitus with stage 3 chronic kidney disease, without long-term current use of insulin (HCC) [E11.22, N18.3] Chronic respiratory failure with hypoxia (HCC) [J96.11] Order(s):ECG COMPLETE [ECG01] Order #: [id number] FUTURE albuterol (PROVENTIL) 2.5 mg /3 mL [...] on 12/21/19 cnpn on 2019-11-06 [facility] Normal 11-06-2019 [place] [facility] MICHAEL HOWARD ([id number]) 1935 M [facility] Date Time Provider Department () 11/06/19 YAIR [...] [E11.9] Order(s):LIPID PANEL BASIC [SQLIPB] Order #: [id number] FUTU RE HGB A1C [ZNEDG3T] Order #: [id number] FUTURE COMP METABOLIC PANEL [SQCMP] Order #: [id number] FUTURE Prescriptions as of 11/06/2019 Sig: LISINOPRIL [...] ABDI CMA on 11/06/19 [facility]pn on 2019-09-[facility]) Normal 09-28-2019 [place] MICHAEL Olivares ([id number]) 1935 M [facility] Date Time Provider Department ([id number]) 09/28/19 LÓPEZ SAUCEDA (KEVIN) [facility] During your visit today, we recorded the following informati on about you: López Sauceda MD 09/28/2019 9:58 AM Addendum Geriatric Emergency Needs Assessment Called patient/family at September 28, 2019 on 9:44 AM by telephone at [phone]. Contact made with patient: Yes Patient identified [...] days since the coronavirus o utbreak hit [place]? - Spending time with his Have you had any social activities restricted or cance lled? (if they ask for examples could be senior [employer] ter, museum, clubs, gatherings with friends, family parties, lutheran services, etc) - Yes Due to the [...] ture healthcare decisions with a power of united states attorney, living will, or advanced dir ectives? [...] Sauceda MD September 28, 2019 9:44 AM [id number] Attending Note I have reviewed the documentation [...] Anuj Trinidad MD Staff, Geriatric Internal Medicine [id number] Allergies As of Date: 09/28/2019 (No Known Allergies) Date Reviewed: 06/19/2019 Reviewed by: Ly Abdi Writing Tutor - Fully Assessed Reason for Visit: Telemedicine [...] on 2019-09-25 CNCO Letter Text Normal 09-25-2019 [facility] ([id number]) progress on 2019-07 PROGRESS HNO ID: [id number] Normal 08-09-2019 [facility] Author: Yair Moseley [place] ([id number]) Service: ? Author Type: Physician Type: Progress Notes Filed: 08/09/2019 9:18 AM Note Text: This note was created using RECOMBINETICS. Subjective This Team Access Model visit is [...] I48.91 Asymptomatic. He wanted refills transferred to [facility]. He was instructed to do fasting labs when feasible. During this patient visit I have spent approximately 25 maxime aditya in counseling regarding and coordinating care. MD richy Guthrie on 2019-07-20 CNPN Telephone (FAMPWS) Normal 07-20-2019 [place] MICHAEL Olivares ([id number]) 1935 M [facility] Date Time Provider Department ([id number]) 07/20/19 YAIR MOSELEY During your visit today, we recorded the following informati on about you: Nkechi Baotol MUSTAFA 07/20/2019 9:38 AM Signed Pt had [...] Date Reviewed: 06/19/2019 Reviewed by: Ly Abdi Writing Tutor - Fully Assessed Reason for Visit: lovenox [...] OBSOLETE Refill (INTMWS) Normal 07-11-2019 [facility] ALEKSANDERMICHAEL VAZ ([id number]) 1935 M [facility] Date Time Provider Department ([id number]) 07/11/19 YAIR MOSELEY INTMWS During your visit [...] Date Reviewed: 06/19/2019 Reviewed by: Ly Abdi Writing Tutor - Fully Assessed Reason for Visit: Refill [...] Hemoglobin (Bld) 11.3 13.0-17.0 g/dL Low 07-01-2019 [facility] [Mass/Vol] [place] ([id number]) Comment: Performed By: #### UACR #### [facility] [address], [place] [address] hemoglobin on 06-23 Hemoglobin (Bld) 11.1 13.0-17.0 g/dL Low 06-23-2019 [facility] [Mass/Vol] [place] ([id number]) Comment: Performed By: #### UACR #### [facility] [address], [place] [address] progress on 2019-06 PROGRESS HNO ID: [id number] Normal 06-19-2019 [facility] Author: Joanne Ball) [facility] ([id number]) Service: ? Author Type: Nurse Practitioner Type: [...] 2.5 % lotion Apply 1-2 times/ day MO N; selectively to the rash or lesions [...] agreeable t o treatment plan. Joanne Dozier APRN.MEASUREMENT ADVISOR cnov on 2019-06-19 CNOV Office Visit (INTMWS) Normal 06-19-19 [place] [facility] MICHAEL HOWARD ([id number]) 1935 M [facility] Date Time Provider Department ([id number]) 06/19/19 8:40 AM JOANNE DOZIER (MELONY) INTMWS During your visit today, we recorded the following informati on about you: Temperature Pulse Respiration Blood pressure 97.9 degrees 54/minute 16/minute 138/80 Weight 96.2 kg Joanne Dozier, COMMUNITY AFFAIRS DIRECTOR.MELONY 06/19/2019 9:15 AM Signed CC: Patient presents with: follow up swelling HPI Michael Howard is a 84 year old male who presents today for follow-up. He had developed DVT during hospital admission for GI bleed in [facility]. He was started on Lovenox injections, will be on for a total of 3 m [facility]. Patient denies any usual or [...] Date Reviewed: 06/19/2019 Reviewed by: Ly Abdi Writing Tutor - Fully Assessed Reason for Visit: follow [...] 2019-05 OBSOLETE Refill (INTMWS) Normal 06-16-2019 [facility] MICHAEL HOWARD ([id number]) 1935 M [facility] Date Time Provider Department ([id number]) 06/16/19 JOANNE DOZIER (MELONY) INTMWS During your [...] Hemoglobin (Bld) 10.2 13.0-17.0 g/dL Low 06-15-2019 [facility] [Mass/Vol] [place] ([id number]) Comment: Performed By: #### UACR #### [facility] [address], [place] [address] hemoglobin on 06-07 Hemoglobin (Bld) 9.9 13.0-17.0 g/dL Low 06-07-2019 [facility] [Mass/Vol] [place] (71426) Comment: Performed By: #### UACR #### [facility] [address], [place] [address] progress on 2019-05 PROGRESS HNO ID: [id number] Normal 06-02-2019 [facility] Author: Joanne (Melony) Sally [place] ([id number]) Service: ? Author Type: Nurse Practitioner Type: [...] 2.5 % lotion Apply 1-2 times/ day MO N; selectively to the rash or lesions [...] 2019-06-02 CNOV Office Visit (INTMWS) Normal 06-02-[address] [place] [address] Clinic MICHAEL HOWARD ([id number]) 1935 M R [place] Date Time Provider Department ([id number]) 06/02/19 2:00 PM JOANNE DOZIER (MELONY) INTMWS [...] ANXIETY STATE NOS 02/03/2005 - Bladder cancer ([facility]) 11/06/2014 - Bladder mass 03/27/2014 - Bladder [...] agreeable to treatm ent plan. Joanne Dozier, CAPO.MEASUREMENT ADVISOR Referring Provider: SELF [200] Allergies As of Date: 06/02/2019 (No Known Allergies) Date Reviewed: 06/02/2019 Reviewed by: Ly Abdi Writing Tutor - Fully Assessed Reason for Visit: toe [...] 06/02/19 progress on 2019-05 PROGRESS HNO ID: [id number] Normal 05-30-2019 [facility] Author: Joanne (Melony) Sally [place] ([id number]) Service: ? Author Type: Nurse Practitioner Type: Progress Notes Filed: 05/30/2019 10:07 AM Note Text: CC: Patient presents with: Hospital Follow Up HPI Michael Howard is a 84 year old male who presents today for h ospital follow-up. Facility: [facility] Date of visit: 05/06/19-05/09/19 Reason for visit: [...] 2.5 % lotion Apply 1-2 times/ day MO N; selectively to the rash or lesions [...] 2019-05-30 CNOV Office Visit (INTMWS) Normal 05-30-[address] [place] [address] [facility] MICAHEL HOWARD ([id number]) 1935 M [facility] Date Time Provider Department ([id number]) 05/30/19 9:00 AM JOANNE DOZIER (MELONY) INTMWS During your visit today, we recorded the following informati on about you: Pulse Respiration Blood pressure Weight 98/minute 16/minute 130/70 96.6 kg Joanne Dozier APRN.CNP 05/30/2019 10:07 AM Signed CC: Patient presents with: Hospital Follow Up JEN Ag Erlinda is a 84 year old male who presents today for hospital follow-up. Facility: [facility] Date of visit: 05/06/19-05/09/19 Reason for visit: [...] ANXIETY STATE NOS 02/03/2005 - Bladder cancer ([facility]) 11/06/2014 - Bladder mass 03/27/2014 - Bladder [...] he was discharged home with last m [facility]. Feels he no longer needs this. [...] agreeable to treatm ent plan. Joanne Dozier APRN.MEASUREMENT ADVISOR Referring Provider: YAIR MOSELEY [[id number]] Allergies As of Date: 05/30/2019 (No Known Allergies) Date Reviewed: 05/30/2019 Reviewed by: Ly Abdi Writing Tutor - Fully Assessed Reason for Visit: Hospital [...] US LEG VEIN DVT [facility] [[id number]] Order #: [id number] FU TURE Ferrous Gluconate (FERGON) 324 mg (38 mg iron) tabletTake 1 tablet by mouth daily with breakfast.Disp: Rfl: furosemide (LASIX) 40 mg tabletTake 1 tablet by mouth once d aily as needed.Disp: Rfl: COMPRESSION STOCKINGS [[id number]] Order #: [id number] Prescriptions as of 05/30/2019 Sig: PANTOPRAZOLE 40 [...] as needed. Encounter Status:Closed by JOANNE DOZIER MEASUREMENT ADVISOR on 05/30/19 progress on 2019-04 PROGRESS HNO ID: [id number] Normal 05-06-2019 [facility] Author: Lori Barrett LPN [place] ([id number]) Service: ? Author Type: ? Type: Progress Notes Filed: 05/06/2019 11:45 AM Note Text: Phoned patient and asked to speak to his aNmita and went o jean notes from Dr Moseley, to go to ER with understanding, his hemoglobin is 5.6. PROGRESS HNO ID: [id number] Normal 05-06-2019 [facility] Author: Yair Moseley [place] ([id number]) Service: ? Author Type: Physician Type: Progress Notes Filed: 05/06/2019 11:45 AM Note Text: Hgb worse 5.6. Advise ER for admission, blood transfusion. PROGRESS HNO ID: [id number] Normal 05-06-2019 [facility] Author: Syl Casillas RN [place] ([id number]) Service: ? Author Type: ? Type: Progress Notes Filed: 05/06/2019 11:45 AM Note Text: Patient?s identity has been confirmed by name and birthdate: Yes Call received from Mamta at [facility] lab (#[phone]) 10:55 AM to report an urgent value for HGB with a result of 5.6. Dr. Moseley was notified of the result at 11.01 AM. Mamta reports that other labs are still processing at this t [facility]. Syl Casillas RN PROGRESS HNO ID: [id number] Normal 05-06-2019 [facility] Author: Nevaeh Cheek LPN [place] ([id number]) Service: ? Author Type: ? Type: Progress Notes Filed: 05/06/2019 11:45 AM Note Text: notified, she will take Patient to Lab within hour for blood draw, verbalized understanding. Lab Order faxed to [facility] Lab AND [facility] Scheduling. Nevaeh Cheek RAMSEY PROGRESS HNO ID: [id number] Normal 05-06-2019 [facility] Author: Yair Moseley [place] ([id number]) Service: ? Author Type: Physician Type: Progress Notes Filed: 05/06/2019 11:45 AM Note Text: Transfusion unit closed by time patient checked in with lab. Transfusion not scheduled today. Update patient on symptoms. If with wor sening symptoms of dyspnea, weakness, chest pain, etc. Advise ER. O therwise, send for stat CBC order and retic. count today at [facility] lab. If anemia worse, he may need admission. If stable, outpatien t transfusion on Wednesday. progress on 2019-04 PROGRESS HNO ID: [id number] Normal 05-05-2019 [facility] Author: Misty Vazquez LPN [place] ([id number]) Service: ? Author Type: ? Type: Progress Notes Filed: 05/06/2019 11:45 AM Note Text: Order faxed to [facility] 2 numbers as requested. Pt was instructed to [facility] if before 545 to central registrati on if after 545 then to ER to check in for the type and cross. He does not have to be seen in ER just check in there. Pt is aware. PROGRESS HNO ID: [id number] Normal 05-05-2019 [facility] Author: Yair Moseley [place] ([id number]) Service: ? Author Type: Physician Type: Progress Notes Filed: 05/05/2019 4:40 PM Note Text: Paged by Randi Araiza SOUND RECORDIST [facility]. Patient was seen today and [...] e. progress on 2019-04 PROGRESS HNO ID: [id number] Normal 04-27-2019 [facility] Author: Joanne (Finger Buff Sewer) Older [place] ([id number]) Service: ? Author Type: Nurse Practitioner Type: Progress Notes Filed: 04/27/2019 12:41 PM Note Text: TRANSITION CARE MANAGEMENT (TCM) INITIAL CONTACT [employer] Outreach ? Provider Action/FYI: [facility] septic shock, acute hypoxia, pneumonia ? ? Initial contact with patient post discharge, spoke to rogelio jacobson. Patient identified by name and . ? TRANSITION CARE MANAGEMENT INITIAL OUTREACH DOCUMENTATION: No flowsheet data found. ? SUMMARY: -Pt discharged from [facility] on 04/20/2019. -Admitted for: septic shock, acute hypoxia, pneumonia ? Do you have a hospital follow up appointment with your PCP? Appointment on 04/27/2019 with Joanne Dozier SOUND RECORDIST . Yes. Remind patient of appointment date, [...] taking your medic ations? Aditya, patient said [facility] Home Health nurse coming to see him to day at 430 pm to go over his medications ? Your discharge instructions/After visit Summary (AVS) are im portant in guiding you through the recovery process. Is there anything I might help you understand? Yes, discharge instructions/AVS are inadequate, not clear to the patient. If further clinical clarification is needed - Patient said [facility] home health nurse coming today to go over his medications. ? Do you have all the necessary equipment and supplies at home ? Yes ? Medical records from recent hospitalization: [facility] Patient said he has several appts coming [...] at today?s visit. CC: Patient presents with: [facility] Follow up HPI Michael Howard is a [...] oxygen 3 liters. Advised to follow-up with scalper operator, Dr. Britt and appointment has been scheduled [...] changed to as needed. To follow-up with technology instructor Dr. Morgan and repeat BMP at that [...] 2.5 % lotion Apply 1-2 times/ day MO N; selectively to the rash or lesions [...] dose of 50 mg - Follow-up with electronic sales and service technician as scheduled 4. Acute renal failure superimposed [...] CNOV Office Visit (INTMWS) Normal 04-27-20 19 [place] [facility] MICHAEL HOWARD ([id number]) 1935 M [facility] Date Time Provider Department ([id number]) 04/27/19 10:40 AM JOANNE DOZIRE (MELONY) INTMWS During your visit today, we recorded the following informati on about you: Temperature Pulse Respiration Blood pressure 96.6 degrees 68/minute 14/minute 130/80 Joanne Dozier APRN.CNP 04/27/2019 12:41 PM Signed TRANSITION CARE MANAGEMENT (TCM) INITIAL CONTACT [employer] [facility] ? Provider Action/FYI: [facility] septic shock, acute hypoxia, pneumonia ? ? Initial contact with patient post discharge, spoke to rogelio jacobson. Patient identified by name and . ? TRANSITION CARE MANAGEMENT INITIAL OUTREACH DOCUMENTATION: No flowsheet data found. ? SUMMARY: -Pt discharged from [facility] on 04/20/2019. -Admitted for: septic shock, acute hypoxia, pneumonia ? Do you have a hospital follow up appointment with your PCP? Appointment on 04/27/2019 with Joanne Dozier SOUND RECORDIST . Yes. Remind patient of appointment date, [...] taking your medic ations? Aditya, patient said [facility] to see him today at 430 pm to go over his medications ? Your discharge instructions/After visit Summary (AVS) are important in guiding you through the recovery pro cess. Is there anything I might help you understand? Yes, discharge instructions/AVS are inadequate, not cl ear to the patient. If further clinical clarification is needed - Abbysuki nt said [facility] home health nurse coming today to go over his medications. ? Do you have all the necessary equipment and supplies at home ? Yes ? Medical records from recent hospitalization: [facility] Patient said he has several appts coming [...] at today?s visit. CC: Patient presents with: [facility] Follow up HPI Michael Howard is a [...] oxygen 3 liters. Advised to [facility] scalper operator, Dr. Britt and appointment has been schedule d. He was seeing Dr. Guevara but would like to change to Dr. Britt. SOB has improved, wearin g oxygen continuously. Not coughing as much. Denies fever, chills, chest pain, whee zing. Transient Afib-treated with IV metoprolo l and home dose was decreased to 50 mg at discharge. Has follow-up scheduled with electronic sales and service technician. JORGE on CKD stage 3: slightly improved at discharge, lisinopril decreased to 10 mg daily and lasix changed to as needed. To follow-up with technology instructor Dr. Morgan and repeat BMP at that [...] dose of 50 mg - Follow-up with electronic sales and service technician as scheduled 4. Acute renal failure superimposed [...] agreeable to treatm ent plan. Joanne Dozier, COMMUNITY AFFAIRS DIRECTOR.MELONY Dozier COMMUNITY AFFAIRS DIRECTOR.MELONY 04/27/2019 11:10 AM Signed There were changes [...] Date Reviewed: 04/27/2019 Reviewed by: Ly Abdi Writing Tutor - Fully Assessed Reason for Visit: [facility] Follow up [Other] Primary Visit Diagnosis:Sepsis due to Streptococcus pn eumoniae without acute organ dysfunction (HCC) [A40.3] Other Visit Diagnoses:Acute respiratory failure with hypox ia ([facility]) [J96.01] Transient atrial fibrillation ([facility]) [I48.91] Acute renal failure superimposed on stage [...] on 2019 CNPN Telephone (INTMWS) Normal 2019 [place] [facility] MICHAEL HOWARD ([id number]) 1935 M R [place] Date Time Provider Department ([id number]) 04/22/19 YAIR MOSELEY INTMWS During your visit today, we recorded the following informati on about you: Cecy Wellsflakitorodo RAMSEY 2019 8:34 AM Signed Sara [facility] HH calling with multiple questions(Please call Sara back /c provider response): Pt discharged f/[facility] on 04/20/19. 1. Given Rx for Lasix [...] review. 4. On pt's continue med list /[facility], Ventolin inh aler and atrovent nasal spray listed. Pt states has not been using, please confirm if to r estart? FYI only: Sara is providing diabetes education for pt, s tarted on insulin while in [facility], having some difficulty insulin use comprehensi on. [...] 04/22/19 progress on 2019-04 PROGRESS HNO ID: [id number] Normal 04-20-2019 [facility] Author: Sushma (Rn) LEXY Miller ([id number]) Service: ? Author Type: Registered Nurse Type: Progress Notes Filed: 04/20/2019 4:38 PM Note Text: Entered in error cnpn on 2019-04-20 CNPN Telephone (FAMPWS) Normal 04-20-2019 [place] [facility] MICHAEL HOWARD ([id number]) 1935 M [facility] Date Time Provider Department ([id number]) 04/20/19 YAIR MOSELEY During your visit today, we recorded the following informati on about you: Sushma Miller, RN, RN 04/20/2019 4:41 PM Signed Received call from Priti at [facility] re questing verbal ok for Dr Moseley [...] 04/21/19 progress on 2019-03 PROGRESS HNO ID: [id number] Normal 03-31-2019 [facility] Author: Yair Moseley [place] ([id number]) Service: ? Author Type: Physician Type: Progress [...] 2019-03-31 CNOV Office Visit (INTMWS) Normal 03-31-[address] [place] [address] MICHAEL Olivares ([id number]) 1935 M [facility] Date Time Provider Department ([id number]) 03/31/19 8:20 AM YAIR MOSELEY INTMWS During your visit today, we recorded the following informati on about you: Pulse Respiration Blood pressure Weight 54/minute 16/minute 100/60 102.1 kg Yair Moseley MD 03/31/2019 9:26 AM Signed This note was created using WePayriter. Subjective Michael Howard is a 83 year [...] kidney disease) stage 3, GFR 30-59 ml/min ([facility]) - ICD9: 585.3, ICD10: N18.3 (primary diagnosis) [...] dose is decreased. Referring Provider: YAIR MOSELEY [[id number]] Allergies As of Date: 03/31/2019 (No Known Allergies) Date Reviewed: 02/07/2019 Reviewed by: Nevaeh Cheek LPN - Fully Assessed Reason for Visit: Established Patient [175] Refill Request [94] Primary Visit Diagnosis:CKD (chronic kid bigg disease) stage 3, GFR 30-59 ml/min ([facility]) [N18.3] Other Visit Diagnoses:Seborrheic dermatitis [L21.9] Essential [...] metoprolol succinate ER (TOPROL XL) 100 mg [id number] 1 tablet by mouth once daily.Disp: 90 tabletRfl: 3 Hydrochlorothiazide 12.5 mg capsuleTake 1 capsule by mouth o nce daily.Disp: 90 capsuleRfl: 3 CBC [SQCBC] Order #: [id number] FUTURE COMP METABOLIC PANEL [SQCMP] Order #: [id number] FUTURE LIPID PANEL BASIC [SQLIPB] Order #: [id number] FUTURE HGB A1C [VENDN2M] Order #: [id number] FUTURE Prescriptions as of 03/31/2019 Sig: HYDROCORTISONE [...] (Bld) [Mass fraction] 7.3 4.3-5.6 % High [facility] (95472) Comment: Result Comment: [place] Isi betes Association guidelines indicate that patients with HgbA1c in the range 5.7-6.4% are at increased risk for development of diabetes, and intervention by lifestyle modification may be beneficial. HgbA1c greater o r equal to 6.5% is considered diagnostic of diabetes. Performed By: #### BMP, HBA1 C #### [facility] [address], [place] [address] HbA1c (Bld) [Mass fraction] 163 mg/dL Normal [facility] (54638) Comment: Result Comment: eAG: (Estima carlos average glucose) is a calculated value from HgbA1c and is labor service representative of the average blood glucose level in the last 2-3 month period. Performed By: #### BMP, HBA1 C #### [address] [place], [place] [address] basic metabolic panl on 2019-03-24 Anion gap [Moles/Vol] 12 9-18 mmol/L Normal 03-24-20 [facility] (24843) Comment: Performed By: #### BMP, HBA1 C #### [address] [address] Calcium [Mass/Vol] 9.6 8.5-10.2 mg/dL Normal 03-24-2019 [facility] (90620) Comment: Performed By: #### BMP, HBA1 C #### [address] [place], [place] [address] Chloride [Moles/Vol] 102 97-105 mmol/L Normal 9 [facility] (88422) Comment: Performed By: #### BMP, HBA1 C #### [address] [place], [place] [address] CO2 [Moles/Vol] 26 22-30 mmol/L Normal 03-24-2019 [facility] (57720) Comment: Performed By: #### BMP, HBA1 C #### [address] [place], [place] [address] Creatinine [Mass/Vol] 1.29 0.73-1.22 mg/dL High 03-24-20 [facility] (98071) Comment: Performed By: #### BMP, HBA1 C #### [facility] [address] [place], [place] [id number] eGFR- Amer. >60 Normal 03-24-2019 [facility] (38122) Comment: Performed By: #### CORNELIO, HBA1 C #### [facility] [address] [place], [place] [id number] GFR/1.73 sq M predicted among 53 . Normal 03-24-2019 [facility] non-blacks MDRD (S/P/Bld) [Vol (08104) rate/Area] Comment: Result Comment: eGFR (Estima carlos [...] Performed By: #### CORNELIO HBA1 C #### [facility] [address], [place] [id number] Glucose [Mass/Vol] 137 74-99 mg/dL High 03-24-2019 [facility] (64391) Comment: Result Comment: The [employer] Diabetes Association (ADA) provides guidance for cutoff [...] for diagnosis of diabetes. Reference: Standards of [facility] Care in Diabetes 2016, [employer] Diabetes Association. Diabetes Care. 2016.39(Suppl 1). Performed By: #### BMP, HBA1 C #### [facility] [address] [place], [place] [address] Potassium [Moles/Vol] 4.1 3.7-5.1 mmol/L Normal 03-24-20 19 [facility] (96882) Comment: Performed By: #### BMP, HBA1 C #### [facility] [address] [place], [place] [address] Sodium [Moles/Vol] 140 136-144 mmol/L Normal 03-24-2019 [facility] (67123) Comment: Performed By: #### BMP, HBA1 C #### [facility] [address] [place], [place] [address] Urea nitrogen [Mass/Vol] 21 9-24 mg/dL Normal 03-24 [facility] (30361) Comment: Performed By: #### BMP, HBA1 C #### [facility] [address], [place] [address] albumin/creat ratio on 2019-03-24 Albumin Urine Random 54.7 mg/L Normal 9 [facility] (18162) Comment: Performed By: #### UACR #### [facility] [address], [place] [address] Albumin/Creat Ratio 26 <30 mg/g Normal 03-24-2019 [facility] (67390) Comment: Result Comment: Adult Male a nd [...] 3(1), 1-150. Performed By: #### UACR #### [facility] [address], [place] [address] Creatinine,Urine,Ran 206.7 20-300 mg/dL Normal 9 [facility] (99927) Comment: Performed By: #### UACR #### [facility] [address] [place], [place] [address] cnpn on 2018-10-29 CNPN Telephone (NAKUL) Normal 10-29-2018 [facility] MICHAEL HOWARD ([id number]) 1935 M NFR (42980) Date Time Provider Department 10/29/18 MILLIE GUEVARA [...] images and further recommendations. Millie Guevara MD, [facility] Respiratory Freedom Ame Xiong LPN 10/31/2018 9:28 AM Signed [...] to me thicillin susceptible Staphylococcus aureus (MSSA) ([facility]) [J15.211] Order(s):dicloxacillin (DYNAPEN) 250 mg capsuleTake 1 caps ule by mouth four times daily.Disp: 56 capsuleRfl: 0 CT CHEST WO IVCON [[id number]] Order #: [id number]: 1 FUTURE Prescriptions as of 10/29/2018 Sig: [...] pathology on 2018-10-26 SURGICAL Specimen originated from [facility] Normal 10-26-2018 [place] [facility] Specimen #: [id number] Hospital Submitting Physician: Millie Guevara M.D. ([id number]) FINAL DIAGNOSIS Left lung, lower lobe, transbronchial [...] in one cassette. [facility] [facility], [address] [place] [address] 10/26/2018 7:20:02 PM Date of Report: 10/27/2018 Date of Procedure: 10/26/2018 Date of Receipt: 10/26/2018 Submitted by: Millie Guevara M.D. Location: [facility] Diagnostic interpretation performed at [facility], [address] [place] [address]. CLIA Number: [id number] respiratory cult/stain on 2018-10-26 Respiratory Sp. Request/Comment: - Specimen received in sterile co ntainer. Critically 10-26-2018 [place] Cult/Stain Smear Result - Rare Gram pos itive cocci --> ABNORMAL ALERT No Polymorphonuclear Leukocytes abnormal Hospital Culture Result - Rare Staphy lococcus aureus --> ABNORMAL ALERT Insignificant colony count. No further workup. --> ABNORMAL ALERT Moderate Normal respiratory alesia present ([id number]) Comment: Performed By: #### RCULST ## ## [facility] Laboratorie s [address] [place] [id number] pt ed on 2018-10-26 PT ED HNO ID: [id number] [place] 10-26-2018 [facility] ([id number]) Author: Syl WildRn) LEXY Flores Service: Nursing [...] By: Syl Flores RN In Departme nt: [facility] ENDOSCOPY PT ED HNO ID: [id number] Normal 10-26-2018 [facility] ([id number]) Author: Elida WildRn) LEXY Patton Service: Nursing [...] Signed By: Elida Patton RN In Department: [facility] ENDOSCOPY nursing prog on 01-21-12 NURSING HNO ID: [id number] Normal 10-26-2018 [place] PROG Author: Elida WildRn) LEXY Patton [facility] Service: Nursing (00 [phone]) Author Type: Registered Nurse Type: Nursing Progress Note Filed: 10/26/2018 12:20 PM Note Text: Nursing Progress Note Patient Name: Michael Howard Patient Location: [place] Endo/[place] Endo pt ready for OR, and at bedside with pt at t his time. This note was completed by: Elida Patton RN legionella cult only on 2018-10-26 Legionella Cult Only Sp. Request/Comment: - Speci men received in sterile container. Normal 10-26-2018 [facility] ([id number]) Culture Result - No Legionella species isolated. Comment: Performed By: #### LEGCUL ## ##[facility] [address] [place], [place] [phone]- [phone] history physical on 2018-10-26 HISTORY PHYSICAL HNO ID: [id number] Normal 10-15 [facility] Author: Millie Guevara ([id number]) Service: Pulmonary Disease Author Type: Physician Type: [...] October 26, 2018 TIME: 12:39 PM PAGER: [phone] fungal culture on Fungal Culture Sp. Request/Comment: - Specimen received in sterile container. Normal 10-26-2018 [facility] ([id number]) Culture Result - No Fungus isolated after 34 days Comment: Performed By: #### FCUL #### [facility] [place], [place] [phone] cytology on 2018-10 CYTOLOGY Specimen originated from [facility] Normal 10-26-2018 [place] Specimen #: [id number] Hospital Submitting Physician: Millie Guevara M.D. ([id number]) SPECIMEN SUBMITTED A: BRONCHIAL LEFT, WASHING FINAL DIAGNOSIS A. BRONCHIAL LEFT, WASHING Rare atypical cells, not diagnostic of malignancy. Staff consultants: Lady Stone. Sami Muse M.D. (Electronic Signature) CLINICAL DATA Unresolving left lower lobe infiltrate. GROSS DESCRIPTION 40cc clear, colorless CytoLyt with particles STAINS A: BRONCHIAL LEFT, WASHING THIN PREP Non-Box Repairer Date of Report: 10/27/2018 Date of Procedure: 10/26/2018 Date of Receipt: 10/26/2018 Submitted by: Millie Guevara M.D. Location: [facility] Diagnostic interpretation performed at [facility], [address] [facility] [address]. [place] Number: [id number] afb cult and stain on 2018-10-26 AFB Cult and Sp. Request/Comment: - Specimen received in sterile co ntainer. Normal 10-26-2018 [facility] Stain ([id number]) Smear Result - No acid fast bacilli seen by fluorochrome sta in Culture Result - No Acid Fast Bacilli isolated after 42 days Comment: Performed By: #### AFC ####C [facility] [address] [place], [place] [phone] hosp on 2018-09-27 HOSP Patient:Michael Howard Normal 09-28-19 [facility] ([id number]) MRN: Height:5' 8(1.727 m) Weight:225 lb (102.059 [...] following basenam es: K,HCT Progress Notes (PULM [facility]): Ame Xiong LPN 09/26/2018 2:11 PM Signed Patient stopped by the office and has agreed to proceed with bronchoscopy. Please place order, will route to [facility] for scheduling. Ame Guevara MD 09/27/2018 8:17 AM Signed Bronchoscopy indicated to ev aluate persistent infiltrate on imaging, but urgency is diminished with negative PET scan. Order placed. Mill[facility]vara MD, [facility] Res[facility] [address] [place] [address] P: [phone] F: [phone] [email or web address] Jeane Spann 09/27/2018 2:04 PM Signed Spoke with patient and scheduled him for October 26. Vital Signs Vital Sign Description Value / Unit Date Location The following section is limited to 5 en tries per type and includes entries from the following time range: 20200131 - 20200116 6. Body Temperature 96.4 [degF] 01-31-2020 [facility] (10796) Body weight 83.46 kg 01-31-2020 [facility] (38361) BP Diastolic 72 mm[Hg] 01-31-2020 [facility] (23298) BP Systolic 130 mm[Hg] 01-31-2020 [facility] (71207) Height 171.7 cm 01-31-2020 [facility] (02732) Pulse (Heart Rate) 76 /min [facility]83296[facility] Pulse Oximetry 90 % 01-31-2020 [facility] (14428) Respiratory Rate 24 /[facility] Encounters Date Type Reason Provider Location 02-02-2020 - Patient encounter External Provider [facility] 02-02-2020 procedure 01-31-2020 - Patient encounter Pleuritic pain Yair Moseley In ternal Medicine 01-31-2020 procedure [place] Comment: Medicare annual wellness vis it, subsequent [...] Provider Location EXTERNAL IMAGING 02-02-2020 External Provider [facility] (73873) INFLUENZA SEASONAL 01-31-2020 Yair Moseley [facility] (22014) QUADRIVALENT HIGH DOSE AGE 65+ Ecg routine ecg w/least 12 lds 12-21-2019 Yair Rodasabebe nael [facility] (31792) w/i&r Plan of Treatment Plan Description Date Location ADVANCE DIRECTIVE ADVANCE DIRECTIVE 01-30-2025 - [facility] inic DISCUSSION DISCUSSION 01-30-2025 ([id number]) DTAP,TDAP,TD (3 - Tdap) DTAP,TDAP,TD (3 - Tdap) 12-30-2022 - [facility] 12-30-2022 (42772) LDL CHOLESTEROL LDL CHOLESTEROL 01-28-2021 - [facility] 01-28-2021 ([id number]) DIABETIC FOOT EXAM DIABETIC FOOT EXAM 12-20-2020 - [facility] 12-20-2020 ([id number]) ALBUMIN/CREAT RATIO RND ALBUMIN/CREAT RATIO RND 07-30-2020 - [facility] UR UR Lab Routine Type 2 01-30-2021 ([id number]) diabetes mellitus with stage 3 chronic kidney disease, without long-term current use of insulin (HCC) Expected: 07/30/2020, Expires: 01/30/2021 Comment: Expected: 07/30/2020, s: 01/30/2021 BMP (BMP) (FOR BMP (BMP) (FOR REMOTE 07-30-2020 - [facility] REMOTE [facility] USE) FH USE) Lab Routine 01-30-2021 ([id number]) Type 2 diabetes mellitus with stage 3 chronic kidney disease, without long-term current use of insulin (HCC) Expected: 07/30/2020, Expires: 01/30/2021 Comment: Expected: 07/30/2020, s: 01/30/2021 CBC CBC Lab Routine Chronic 07-30-2020 - 01-30-2021 [facility] (24865) respiratory failure with hypoxia (HCC) Expected: 07/30/2020, Expires: 01/30/2021 Comment: Expected: 07/30/2020, s: 01/30/2021 HGB A1C HGB A1C Lab Routine Type 2 07-30-2020 - 01-31-20 21 [facility] (40903) diabetes mellitus with stage 3 chronic kidney disease, without long-term current use of insulin (HCC) Expected: 07/30/2020, Expires: 01/30/2021 Comment: Expected: 07/30/2020, s: 01/30/2021 HBA1C HBA1C 07-28-2020 - [facility] 07-28-2020 ([id number]) DILATED RETINAL EXAM DILATED RETINAL EXAM 07-17-2020 - [facility] 07-17-2020 ([id number]) URINE URINE 03-24-2020 - [facility] ALBUMIN:CREATININE ALBUMIN:CREATININE 03-24-2020 ([id number]) RATIO RATIO INFLUENZA (#1) INFLUENZA (#1) 2020 [facility] (23799) HBA1C HBA1C 09-22-2019 [facility] (98091) LDL CHOLESTEROL LDL CHOLESTEROL 03-22-2019 [facility] (50258) ADVANCE DIRECTIVE ADVANCE DIRECTIVE 1999 [facility] inic DISCUSSION DISCUSSION (61242) SHINGRIX VACCINE (1 of SHINGRIX VACCINE (1 of 1984 - [facility] 2) 2) 1984 (54871) no information [facility] (47285) no information [facility] (02382) Immunizations Vaccine Notes Status Date Location DT(PEDIATRIC) diphtheria and tetanus (completed) 05-17-2002 - [facility] toxoids, adsorbed for 05-17-2002 (11624 ) pediatric use Influenza Vaccine, influenza virus (completed) 03-13-2013 - [facility] Split-Non Spec vaccine, unspecified 03-13-2013 (4419 5) formulation Influenza Vaccine, influenza virus (completed) 04-29-2012 - [facility] Split-Non Spec vaccine, unspecified 04-29-2012 (4419 5) formulation Influenza Vaccine, influenza virus (completed) 03-12-2010 - [facility] Split-Non Spec vaccine, unspecified 03-12-2010 (4419 5) formulation Influenza Vaccine, influenza virus (completed) 03-22-2007 - [facility] Split-Non Spec vaccine, unspecified 03-22-2007 (4419 5) formulation Influenza Vaccine, influenza virus (completed) 04-12-2006 - [facility] Split-Non Spec vaccine, unspecified 04-12-2006 (4419 5) formulation Influenza Seasonal - influenza, high dose (completed) 02-07-2019 - [facility] High Dose - Age 65+ seasonal, 02-07-2019 (20531) preservative-free Influenza Seasonal - influenza, high dose (completed) 01-29-2018 - [facility] High Dose - Age 65+ seasonal, 01-29-2018 (51928) preservative-free Influenza Seasonal - influenza, high dose (completed) 04-14-2017 - [facility] High Dose - Age 65+ seasonal, 04-14-2017 (12800) preservative-free Influenza Seasonal - influenza, high dose (completed) 02-06-2016 - [facility] High Dose - Age 65+ seasonal, 02-06-2016 (94021) preservative-free Influenza Seasonal - influenza, high dose (completed) 05-02-2015 - [facility] High Dose - Age 65+ seasonal, 05-02-2015 (35850) preservative-free influenza, high-dose, influenza, high-dose, (completed) 01-31-2020 - [facility] quadrivalent vaccine quadrivalent vaccine 01-31-2020 (72730) (FLUZONE HIGH DOSE (FLUZONE HIGH DOSE QUADRIVALENT) QUADRIVALENT) Influenza Seasonal influenza, seasonal, (completed) 05-01-2014 - [facility] Inj Age 3+ injectable 05-01-2014 (25362) Pneumococcal-13 Vac pneumococcal conjugate (completed) 10-30-2014 - [facility] Conjugate vaccine, 13 valent 10-30-2014 (52381) Pneumovax pneumococcal (completed) 10-16-1999 - [facility] polysaccharide vaccine, 10-16-1999 (441 95) 23 valent TD Adult tetanus and diphtheria (completed) 12-30-2012 - [facility] toxoids, adsorbed, 12-30-2012 (91441) preservative free, for adult use (2 Lf of tetanus toxoid and 2 Lf of diphtheria toxoid) Payers Payer Name Policy Number Location [employer] [id number] [facility] (44 195) The following information is from the original human readable contentNo Payer Records FoundNo Payer Records FoundNo Payer Records Found Social History Type Social History Date Location Description Tobacco smoking status Former smoker 12-21-2019 - [facility] NHIS 01-31-2020 (38526) History of tobacco use Current smoker 08-23-2013 [facility] (41237) History of tobacco use Cigar Smoker 08-23-2013 [facility] (30741) Tobacco use and Never used 12-21-2019 - [facility] exposure 01-31-2020 (71216) Alcohol intake Current drinker of 12-21-2019 [facility] alcohol (finding) 01-31-2020 (25991) Alcohol intake 12-21-2019 - [facility] 01-31-2020 (55329) Tobacco Comment I smoked cigars, never 08-23-2018 - [facility] cigarettes. 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 Subjective Michael Howard is a 84 year [...] current medications - BMP (BMP) (FOR REMOTE [facility] USE) - HGB A1C - ALBUMIN/CREAT RATIO [...] kidney disease) stage 3, GFR 30-59 ml/min ([facility]) 01/30/2018 ? Depressive disorder, not elsewhere classified [...] seen: Dr. Britt, pulmonary. Dr. Tsai, ENT. [facility]. End of Live Planning discussed including patients advanced directive wishes: Yes Does patient have an advanced directive or durable power of united states attorney in place? Yes. PHQ-2 / Depression [...] BE BASED ON THE PRIMARY CLINICAL RECORDS. [facility] provides no warranty or guarantee of the accuracy or completeness of information in this document. UNRECOGNIZED CONTENT PROVIDED BELOW FOR UNRECOGNIZED SECTION No Status Records FoundNo Status Records Found UNRECOGNIZED CONTENT PROVIDED BELOW FOR UNRECOGNIZED SECTION INFORMATION SOURCE DATE CREATED AUTHOR AUTHOR'S ORGANIZATIO N 12/07/2018 [facility] DATE CREATED AUTHOR AUTHOR'S ORGANIZATIO N 01/31/2020 [facility] UNRECOGNIZED CONTENT PROVIDED BELOW FOR UNRECOGNIZED SECTION Source Comments In the event this information is protected by the Federal Confidentiality of Alcohol and Drug Abuse Patient Records regulations: The Federal rules restrict any use of the information to criminally investigate or prosecute any alcohol or drug abuse patient.[facility] the event this information is protected by the Federal Confidentiality of Alcohol and Drug Abuse Patient Records regulations: The Federal rules restrict any use of the information to criminally investigate or prosecute any alcohol or drug abuse patient.[facility] the event this information is protected by the Federal Confidentiality of Alcohol and Drug Abuse Patient Records regulations: The Federal rules restrict any use of the information to criminally investigate or prosecute any alcohol or drug abuse patient.[facility] UNRECOGNIZED CONTENT PROVIDED BELOW FOR UNRECOGNIZED SECTION Reason for Visit Reason Comments Medicare Wellness Exam
== END | disposition home or self-care (01) ==
LOC: RAD 09:37
PROVIDERS: PCP Internal Medicine; Referring Provider Nurse Practitioner Acute Care; Visit Provider Nurse Practitioner Acute Care
DX: R06.02 Shortness of breath (principal); Z98.890 Other specified postprocedural states
CPT/HCPCS: 36415; 71046; 80048; 83880

== ENCOUNTER → 2019-11-28 | Outpatient (CLI) | payer MEDICARE, SELFPAY ==
[2019-11-28 08:57] VITALS: BMI 27.8
== END | disposition home or self-care (01) ==
LOC: LABSPEC 10:24
PROVIDERS: PCP Internal Medicine; Referring Provider Nurse Practitioner Acute Care; Visit Provider Nurse Practitioner Acute Care
DX: J18.9 Pneumonia, unspecified organism (principal)
CPT/HCPCS: 87070; 87205

== ENCOUNTER → 2019-12-08 | Outpatient (CLI) | payer MEDICARE, SELFPAY ==
[2019-11-28 08:57] VITALS: BMI 27.8
--- NOTE | 2019-12-08 15:52 | CT_ITS ---
STUDY: CT CHEST WITHOUT CONTRAST REASON FOR EXAM: Male, 84 years old. Persistent pneumonia RADIATION DOSAGE (If Supplied By Facility): CTDIvol = ( 15.08 ) mGy, DLP = ( 565.21 ) mGycm TECHNIQUE: Transaxial imaging was performed without the administration of intravenous contrast material. Individualized dose optimization techniques were used for this CT. COMPARISON: Plain films May 06 2019, CT chest January 27 2017 FINDINGS: Compared to prior plain film from April 2019 multiple regional and nodular pulmonary opacities have increased. There are bilateral dense basilar consolidations. There are additional scattered irregularly-shaped mixed groundglass and well-defined solid nodules throughout both lungs, with a new consolidation in the left upper lobe. In 2012 there was a similar appearing small early focus of cavitary consolidation. Central airways are patent. There are reactive mediastinal lymph nodes. There is severe coronary artery disease. Osseous and Limited upper abdominal structures are unremarkable. CT/Chest without Contrast IMPRESSION: 1. Chronically progressive airspace disease. Given chronicity differential diagnosis is possible atypical infection, such as tuberculosis, nontuberculous mycobacteria, unusual chronic aspiration pattern, sarcoidosis, less likely [employer]/BOOP, or unusual metastatic disease. Electronically Signed: Mateus English, at 21:40 EDT Tel , Service support ,
== END | disposition home or self-care (01) ==
LOC: CT 15:52
PROVIDERS: PCP Internal Medicine; Referring Provider Nurse Practitioner Acute Care; Visit Provider Nurse Practitioner Acute Care
DX: J18.9 Pneumonia, unspecified organism (principal)
CPT/HCPCS: 71250

== ENCOUNTER → 2019-12-20 13:58 | Outpatient (CLI) | payer MEDICARE, SELFPAY ==
[2019-11-28 08:57] VITALS: BMI 27.8
[2019-12-13 05:42] VITALS: BMI 27.8
--- NOTE | 2019-12-20 14:00 | SP.MBSS_ITS ---
PRIMARY / SECONDARY DIAGNOSIS: dysphagia (R13.10) CURRENT DIET (SOLIDS): regular textures (IDDSI: 7) CURRENT DIET (LIQUIDS): thin liquid diets (IDDSI: 0) DENTITION: natural upper / lower dentition MENTAL STATUS: sufficient for participation RESPIRATORY STATUS: O2 via room air REASON FOR REFERRAL: The Patient is a 84 year old male referred for a modified barium swallow (MBS) study to objectively assess the Patients oropharyngeal swallow function under fluoroscopy secondary to reported intermittent coughing following ingestion of thin liquids occurring over the last 1-2 months. PREVIOUS MODIFIED BARIUM SWALLOW STUDY RESULTS: None ASSESSMENT PARAMETERS: The Patient participated in a Modified Barium Swallow (MBS) study on 12/20/2019. This study was recorded in the lateral view and images were sent to PACs for storage. Scoring was completed through each trial using the 8- point Penetration-Aspiration Scale (PAS) and summarized via the Modified Barium Swallow Impairment Profile (MBSImP) and the Bolus Residue Scale (BRS), with severity scoring through the Swallowing Performance Scale (SPS) and the Dysphagia Classification Scale (DCS), and recommended diet textures through the International Dysphagia Diet Standardisation Initiative (IDDSI). RESULTS OF THE EVALUATION: The Patient presents with mild oropharyngeal dysphagia (DSRS: 3; DCS: D1) with occasional shallow penetration without complete ejection of thin liquids OBJECTIVE ASSESSMENT OF SWALLOW FUNCTION (QUANTITATIVE ? PER TRIAL): PENETRATION / ASPIRATION SCALE (GUADALUPE): 1 = does not enter airway 2 = enters airway/above vocal folds/ejected 3 = enters airway/above vocal folds/not ejected 4 = enters airway/contacts vocal folds/ejected 5 = enters airway/contacts vocal folds/not ejected 6 = enters airway/below vocal folds/ejected 7 = enters airway/below vocal folds/not ejected despite effort 8 = enters airway/below vocal folds/no effort PENETRATION / ASPIRATION SCALE (SCORE): Thin liquid - 5 mL tsp.: 1 Thin liquids via cup (single sip): 1 Thin liquids via cup (single sip): 1 Thin liquids via cup (single sip): 1 Pudding via spoon: 1 Regular textured cookie: 1 Thin liquids via straw (single sip): 3 Thin liquids via straw (single sip): 1 Thin liquids via straw (chin tuck): 1 Thin liquids via straw (chin tuck): 1 Thin liquids via straw (chin tuck): 1 OBJECTIVE ASSESSMENT OF SWALLOW FUNCTION (QUANTITATIVE ? AGGREGATE): MODIFIED BARIUM SWALLOW IMPAIRMENT PROFILE (MBSImP) LABIAL SEAL: 0 (of 4) no labial escape TONGUE CONTROL: 2 (of 3) posterior escape < 50% BOLUS PREPARATION / MASTICATION: 0 (of 3) timely and efficient BOLUS TRANSPORT / LINGUAL MOTION: 1 (of 4) delayed initiation of motion ORAL RESIDUE: 2 (of 4) residue collection on oral structures INITIATION OF PHARYNGEAL SWALLOW: 1 (of 4) valleculae SOFT PALATE ELEVATION: 0 (of 4) no bolus between soft palate & pharyngeal wall LARYNGEAL ELEVATION: 1 (of 3) partial superior movement / approximation ANTERIOR HYOID EXCURSION: 1 (of 2) partial movement EPIGLOTTIC MOVEMENT: 1 (of 2) partial inversion LARYNGEAL VESTIBULE CLOSURE: 1 (of 2) incomplete closure PHARYNGEAL STRIPPING WAVE: 1 (of 2) present / diminished PE SEGMENT OPENIN (of 3) partial distension / duration / obstruction TONGUE BASE RETRACTION: 1 (of 4) trace column of contrast PHARYNGEAL RESIDUE: 2 (of 4) collection of residue ESOPHAGEAL BOLUS CLEARANCE: could not view BOLUS RESIDUE SCALE (BRS): BRS SCORE: 2 (of 6) BRS SCORE DESCRIPTION: residue in valleculae OBJECTIVE ASSESSMENT OF SWALLOW FUNCTION (SEVERITY GRADING): SWALLOWING PERFORMANCE SCALE (SPS): SPS SCORE: 3 (mild) SPS SCORE DESCRIPTION: mild dysfunction in oral or pharyngeal stage; requires modified diet without need for therapeutic swallowing precautions. DYSPHAGIA CLASSIFICATION SCALE (DCS): D1 (mild) DCS CLASSIFICATION CHARACTERISTICS: mild stasis, without food consistency restriction OBJECTIVE ASSESSMENT OF SWALLOW FUNCTION (QUALITATIVE): ORAL PREPARATORY PHASE: slightly prolonged duration of mastication; sufficient anterior oral containment during oral manipulation; preserved management of breathing / bolus formation ORAL TRANSITIONAL PHASE: sufficient bolus transportation; no lingual discoordination (no tremor / undulations); no bolus consolidation impairments with sufficient oral clearance; mild premature posterior bolus loss with thin liquids collecting within the valleculae on two occasions PHARYNGEAL PHASE: age appropriate pharyngeal phase synchrony; mild reduction in hyolaryngeal excursion and duration resulting in suboptimal laryngeal vestibule closure / pressure / duration; mild pharyngeal dysmotility with consolidation within the vallecula following trials of semisolids and solids; appropriate velopharyngeal functioning ESOPHAGEAL PHASE: no obvious esophageal phase abnormalities observed. RESPONSE TO STRATEGIES: deficits managed successfully with reduction in bolus rate / volume adjustments, some benefit noted with execution of the chin tuck posture, INTERVENTION RECOMMENDATIONS AND CONSIDERATIONS: The Patient may benefit from continued skilled speech-language intervention targeting diet texture management and training / implementation of recommended compensatory strategies; training and implementation of recommended oropharyngeal strengthening exercises to facilitate improved laryngeal vestibule closure / pressure and pharyngeal motility. POST ASSESSMENT EDUCATION: The results and recommendations were discussed with the Patient immediately following MBS completion, with the Patient verbalizing understanding and agreement with all recommendations and education provided. DIET TEXTURE RECOMMENDATIONS: Will recommend a regular ? soft textured (IDDSI: 6), thin liquid diet (IDDSI: 0) diet RECOMMENDED COMPENSATORY STRATEGIES: Consider chin tuck posture with thin liquids, reduced bolus volume / rate of ingestion, seated upright at 90 degrees during PO intake, remain upright for 30-60 minutes post meal (GERD precaution) IMAGE COUNT: [id number] Alireza Franco M.A., [employer], CBIS MBSImP Certified, LSVT Certified [facility] Speech-Language Pathology Department Email: [email or web address]
== END ==
PROVIDERS: PCP Internal Medicine; Referring Provider Otolaryngology; Visit Provider Otolaryngology
DX: R13.10 Dysphagia, unspecified (principal)
CPT/HCPCS: 74230; 92611

== ENCOUNTER → 2020-03-04 | Outpatient (CLI) | payer MEDICARE, SELFPAY ==
[2019-12-13 05:42] VITALS: BMI 27.8
--- NOTE | 2020-03-04 13:00 | SP.MBSS_ITS ---
Modified Barium Swallow - Patient Information Study Date: 03/04/20 Study Time: 13:00 Direct Billable Minutes: 130 Total Minutes procedure & reportin Diagnosis: Oropharyngeal Dysphagia Referring Physician: Félix Tsai Reason for Referral: Further assessment of oropharyngeal swallow function under fluoroscopy was recommended to objectively identify benefit from dysphagia services received to date, determine appropriate interventions for ongoing dysphagia management and to further tailor recommendations for diet texture, liquid viscosity and compensatory swallowing strategy use to best meet this patient's specific needs, which will allow for maximal benefit and optimal outcome from therapeutic services received. Medical History: Acute respiratory failure with hypoxia, Upper GI bleed, Acute on chronic blood loss anemia, Type 2 diabetes mellitus, Community acquired pneumonia, Hypoxemia, A fib, Skin cancer, HTN, Sepsis, Septic shock, nasal drainage - see medical record for additional details Current Diet Ordered: regular textures/thin liquids Dentition: Natural Teeth Mental Status: Impaired Comment: Pt demonstrated reduced insight/difficulty recalling details re: current dysphagia plan of care - denied awareness/need for use of any compensatory swallowing strategies w/ PO intake. Noted slowed processing speed w/ the patient requiring repetition of instructions to comprehend and respond/execute appropriately. Respiratory Status: Oxygenating on Room Air - Study Findings Consistencies: Thin Liquid, [place] Thick Liquid, Pudding, Cookie - Penetration-Aspiration Scale Penetration-Aspiration Scale: OBJECTIVE ASSESSMENT OF SWALLOW FUNCTION (QUANTITATIVE ? PER TRIAL): PENETRATION / ASPIRATION SCALE ([place]): 1 = does not enter airway 2 = enters airway/above vocal folds/ejected 3 = enters airway/above vocal folds/not ejected 4 = enters airway/contacts vocal folds/ejected 5 = enters airway/contacts vocal folds/not ejected 6 = enters airway/below vocal folds/ejected 7 = enters airway/below vocal folds/not ejected despite effort 8 = enters airway/below vocal folds/no effort - Penetration-Aspiration Scale Score Thin Liquid via teaspoon Result: 1= does not enter airway Thin Liquid via teaspoon Trial 2 Result: 1= does not enter airway Thin Liquid via small single sip from cup Result: 1= does not enter airway Thin Liquid via small single sip from cup Effortful swallow Result: 1= does not enter airway [place] Thick Liquid via small single sip from cup Result: 1= does not enter airway - [place] Thick Liquid via small single sip from cup Trial 2 Result: 1= does not enter airway Pudding Result: 1= does not enter airway Cookie Result: 1= does not enter airway Thin Liquid via small single sip from cup Trial 2 Result: 3= enters airways/above vocal folds/not ejected Thin Liquid via small single sip from cup Trial 3 Result: 1= does not enter airway Pudding Other Result: 1= does not enter airway Comment: slightly obliqued position w/ R arm up to improve view of PES/upper esophagus Pudding Other Trial 2 Result: 1= does not enter airway Comment: slightly obliqued position w/ R arm up to improve view of PES/upper esophagus Thin Liquid via small single sip from cup Other Trial 4 Result: 1= does not enter airway Comment: slightly obliqued position w/ R arm up to improve view of PES/upper esophagus Thin Liquid via small single sip from cup Other Trial 5 Result: 1= does not enter airway Comment: slightly obliqued position w/ R arm up to improve view of PES/upper esophagus Thin Liquid via single sip from straw Other Result: 1= does not enter airway Comment: slightly obliqued position w/ R arm up to improve view of PES/upper esophagus Thin Liquid via single sip from straw Other Trial 2 Result: 1= does not enter airway Comment: slightly obliqued position w/ R arm up to improve view of PES/upper esophagus Thin Liquid via single sip from straw Right head turn Result: 1= does not enter airway Comment: slightly obliqued position w/ R arm up to improve view of PES/upper esophagus Thin Liquid via single sip from straw Left head turn Result: 1= does not enter airway Comment: slightly obliqued position w/ R arm up to improve view of PES/upper esophagus - Oral Phase Labial Seal: No Labial Escape Tongue Control During Bolus Hold: Posterior escape of less than half of bolus Bolus Preparation/Mastication: Timely and efficient chewing and mashing Bolus Transport/Lingual Motion: Delayed initiation of tongue motion Oral Residue: Residue collection on oral structures - Pharyngeal Phase Initiation of Pharyngeal Swallow: Bolus head in pyriforms Soft Palate Elevation: No bolus between soft palate and pharyngeal wall Laryngeal Elevation: Partial superior movement thyroid cart/partial apprx aryt- epig petiole Anterior Hyoid Excursion: Partial anterior movement Epiglottic Movement: Partial inversion Laryngeal Vestibule Closure at Height of Swallow: Incomplete; narrow column of air/contrast in laryngeal vestibule Pharyngeal Stripping Wave: Present - diminished Pharyngoesophageal Segment Opening: Parital distension and partial duration; parital obstruction of flow Tongue Base Retraction: Narrow column of contrast between tongue base & post. pharyngeal wall Pharyngeal Residue: Collection of residue within or on pharyngeal structures - Esophageal Phase Esophageal Clearance: Esophageal retention - Treatment Strategies Effects of treatment strategies attemped:: * Right Head Turn: effective to improve pharyngeal clearance/reduce residue lining the L aryepiglottic fold/pyriform sinus post deglutition * Double Swallow: effective to improve clearance of vallecular stasis post deglutition * Liquid Wash: effective to improve clearance of vallecular stasis post deglutition * Reduced Bolus Size/Volume: effective to reduce degree of premature pharyngeal bolus entry prior to swallow onset w/ improved swallow onset timing - Diagnosis/Impression Diagnosis: Mild oropharyngeal dysphagia Impression: This patient presents with mild oropharyngeal dysphagia. Oral phase is marked by: * sufficient labial seal w/out anterior bolus loss * mildly prolonged mastication time * delayed initiation of lingual sweep for A-P bolus transfer Pharyngeal phase marked by: * premature pharyngeal bolus entry w/ delayed swallow onset * inconsistent swallow onset time w/ thin liquid reaching the pyriform sinuses at worst and pudding reaching the posterior laryngeal surface of the epiglottis at worst prior to pharyngeal swallow onset * reduced tongue base to posterior pharyngeal wall contact w/ reduced pharyngeal contraction * incomplete hyopharyngeal excursion and incomplete epiglottic inversion w/ suboptimal laryngeal vestibule closure w/ reduced distention and duration of the pharyngoesophageal segment * residue retention post deglutition evident in the vallecula and pyriforms with contrast also lining the aryepiglottic folds (L > R) * compensatory strategies were effective to improve bolus clearance * use of a right head turn was effective to clear L aryepiglottic fold contrast retention Esophageal phase was unremarkable. Aspiration was not observed under fluoroscopy. Wet vocal quality and throat clearing were noted following MBS completion. Given presentation during MBS, suspect that aryepiglottic fold/pyriform residue may be penetrating into the laryngeal vestibule, along w/ trace penetration w/out ejection that observed 2x during, potentially contacting the vocal folds w/ gravitational assist, contributing to wet vocal quality and throat clearing. - Recommendations Diet: Regular Textures, Thin Liquids Compensatory Strategies: Small Bites, Small Sips, Slow Rate, Multiple Swallows - cough/reswallow as needed when wet vocal quality evident, Alternate bites/solids and sips/liquids, Sitting upright Recommend Repeat Modified Barium Swallow: No Comment: This patient requires continued outpatient skilled dysphagia intervention targeting education re: safety and use of compensatory swallowing strategies and consistent implementation of his home oropharyngeal strengthening exercise regimen. Trial of R head turn w/ deglutition should be completed under direct [employer] supervision to assess effect on swallow function across multiple trials of PO intake. Need for Skilled Speech Therapy Services: Yes - This pateint requires continued outpatient treatme Education Completed: 1. Described result of evaluation., 2. Pt understands evaluation & agrees with goals and treatment plan., 7. Pt requires further education on strategies & risks. - Image Count: 4,[phone] - Status Active ST Patient: Active - Contact Information [facility] Speech Therapy:: Vane Liang M.A, [facility] Speech-Language Pathologist [phone]
== END | disposition home or self-care (01) ==
LOC: RAD 12:50
PROVIDERS: PCP Internal Medicine; Referring Provider Otolaryngology; Visit Provider Otolaryngology
DX: R13.12 Dysphagia, oropharyngeal phase (principal)
CPT/HCPCS: 74230; 92611

== ENCOUNTER → 2020-04-04 13:45 | Outpatient (CLI) | payer MEDICARE, SELFPAY ==
[2020-04-04 13:00] VITALS: BMI 27.1
== END ==
PROVIDERS: PCP Internal Medicine; Referring Provider Nurse Practitioner Acute Care; Visit Provider Nurse Practitioner Acute Care
DX: Z00.00 Encounter for general adult medical examination without abnormal findings (principal)

== ENCOUNTER 2020-04-09 11:30 | Outpatient (RCR) | payer MEDICARE, SELFPAY ==
[2019-12-13 05:42] VITALS: BMI 27.8
--- NOTE | 2020-02-01 12:30 | ST ---
[facility] Speech Pathology [address] [place] [address] Modified Barium Swallow Study MR#: [id number] Acct: [id number] Name: JOAN HOWARD Rep #: [id number] : [id number] From: Alireza Franco M.A., CCC-LEATHER CRAFTSMAN PRIMARY / SECONDARY DIAGNOSIS: dysphagia (R13.10) CURRENT DIET (SOLIDS): regular textures (IDDSI: 7) CURRENT DIET (LIQUIDS): thin liquid diets (IDDSI: 0) DENTITION: natural upper / lower dentition MENTAL STATUS: sufficient for participation RESPIRATORY STATUS: O2 via room air REASON FOR REFERRAL: The Patient is a 84 year old male referred for a modified barium swallow (MBS) study to objectively assess the Patients oropharyngeal swallow function under fluoroscopy secondary to reported intermittent coughing following ingestion of thin liquids occurring over the last 1-2 months. PREVIOUS MODIFIED BARIUM SWALLOW STUDY RESULTS: None ASSESSMENT PARAMETERS: The Patient participated in a Modified Barium Swallow (MBS) study on 12/20/2019. This study was recorded in the lateral view and images were sent to PACs for storage. Scoring was completed through each trial using the 8-point Penetration-Aspiration Scale (PAS) and summarized via the Modified Barium Swallow Impairment Profile (MBSImP) and the Bolus Residue Scale (BRS), with severity scoring through the Swallowing Performance Scale (SPS) and the Dysphagia Classification Scale (DCS), and recommended diet textures through the International Dysphagia Diet Standardisation Initiative (IDDSI). RESULTS OF THE EVALUATION: The Patient presents with mild oropharyngeal dysphagia (DSRS: 3; DCS: D1) with occasional shallow penetration without complete ejection of thin liquids OBJECTIVE ASSESSMENT OF SWALLOW FUNCTION (QUANTITATIVE ? PER TRIAL): PENETRATION / ASPIRATION SCALE (GUADALUPE): 1 = does not enter airway 2 = enters airway/above vocal folds/ejected 3 = enters airway/above vocal folds/not ejected 4 = enters airway/contacts vocal folds/ejected 5 = enters airway/contacts vocal folds/not ejected 6 = enters airway/below vocal folds/ejected 7 = enters airway/below vocal folds/not ejected despite effort 8 = enters airway/below vocal folds/no effort PENETRATION / ASPIRATION SCALE (SCORE): Thin liquid - 5 mL tsp.: 1 Thin liquids via cup (single sip): 1 Thin liquids via cup (single sip): 1 Thin liquids via cup (single sip): 1 Pudding via spoon: 1 Regular textured cookie: 1 Thin liquids via straw (single sip): 3 Thin liquids via straw (single sip): 1 Thin liquids via straw (chin tuck): 1 Thin liquids via straw (chin tuck): 1 Thin liquids via straw (chin tuck): 1 OBJECTIVE ASSESSMENT OF SWALLOW FUNCTION (QUANTITATIVE ? AGGREGATE): MODIFIED BARIUM SWALLOW IMPAIRMENT PROFILE (MBSImP) LABIAL SEAL: 0 (of 4) no labial escape TONGUE CONTROL: 2 (of 3) posterior escape < 50% BOLUS PREPARATION / MASTICATION: 0 (of 3) timely and efficient BOLUS TRANSPORT / LINGUAL MOTION: 1 (of 4) delayed initiation of motion ORAL RESIDUE: 2 (of 4) residue collection on oral structures INITIATION OF PHARYNGEAL SWALLOW: 1 (of 4) valleculae SOFT PALATE ELEVATION: 0 (of 4) no bolus between soft palate & pharyngeal wall LARYNGEAL ELEVATION: 1 (of 3) partial superior movement / approximation ANTERIOR HYOID EXCURSION: 1 (of 2) partial movement EPIGLOTTIC MOVEMENT: 1 (of 2) partial inversion LARYNGEAL VESTIBULE CLOSURE: 1 (of 2) incomplete closure PHARYNGEAL STRIPPING WAVE: 1 (of 2) present / diminished PE SEGMENT OPENIN (of 3) partial distension / duration / obstruction TONGUE BASE RETRACTION: 1 (of 4) trace column of contrast PHARYNGEAL RESIDUE: 2 (of 4) collection of residue ESOPHAGEAL BOLUS CLEARANCE: could not view BOLUS RESIDUE SCALE (BRS): BRS SCORE: 2 (of 6) BRS SCORE DESCRIPTION: residue in valleculae OBJECTIVE ASSESSMENT OF SWALLOW FUNCTION (SEVERITY GRADING): SWALLOWING PERFORMANCE SCALE (SPS): SPS SCORE: 3 (mild) SPS SCORE DESCRIPTION: mild dysfunction in oral or pharyngeal stage; requires modified diet without need for therapeutic swallowing precautions. DYSPHAGIA CLASSIFICATION SCALE (DCS): D1 (mild) DCS CLASSIFICATION CHARACTERISTICS: mild stasis, without food consistency restriction OBJECTIVE ASSESSMENT OF SWALLOW FUNCTION (QUALITATIVE): ORAL PREPARATORY PHASE: slightly prolonged duration of mastication; sufficient anterior oral containment during oral manipulation; preserved management of breathing / bolus formation ORAL TRANSITIONAL PHASE: sufficient bolus transportation; no lingual discoordination (no tremor / undulations); no bolus consolidation impairments with sufficient oral clearance; mild premature posterior bolus loss with thin liquids collecting within the valleculae on two occasions PHARYNGEAL PHASE: age appropriate pharyngeal phase synchrony; mild reduction in hyolaryngeal excursion and duration resulting in suboptimal laryngeal vestibule closure / pressure / duration; mild pharyngeal dysmotility with consolidation within the vallecula following trials of semisolids and solids; appropriate velopharyngeal functioning ESOPHAGEAL PHASE: no obvious esophageal phase abnormalities observed. RESPONSE TO STRATEGIES: deficits managed successfully with reduction in bolus rate / volume adjustments, some benefit noted with execution of the chin tuck posture, INTERVENTION RECOMMENDATIONS AND CONSIDERATIONS: The Patient may benefit from continued skilled speech-language intervention targeting diet texture management and training / implementation of recommended compensatory strategies; training and implementation of recommended oropharyngeal strengthening exercises to facilitate improved laryngeal vestibule closure / pressure and pharyngeal motility. POST ASSESSMENT EDUCATION: The results and recommendations were discussed with the Patient immediately following MBS completion, with the Patient verbalizing understanding and agreement with all recommendations and education provided. DIET TEXTURE RECOMMENDATIONS: Will recommend a regular ? soft textured (IDDSI: 6), thin liquid diet (IDDSI: 0) diet RECOMMENDED COMPENSATORY STRATEGIES: Consider chin tuck posture with thin liquids, reduced bolus volume / rate of ingestion, seated upright at 90 degrees during PO intake, remain upright for 30-60 minutes post meal (GERD precaution) IMAGE COUNT: [id number] Alireza Franco M.A., [employer]ATH[employer]FTSMAN, CBIS MBSImP Certified, LSVT Certified [facility] Speech-Language Pathology Department Email: [email or web address] [id number]/[email or web address]/[id number] <Electronically signed by Alireza Franco M.A., CCC-LEATHER CRAFTSMAN> Date Alireza Franco M.A., CCC-LEATHER CRAFTSMAN Co-Signature Required for all Medicare patients Date/Time Co-Signature
--- NOTE | 2020-02-01 18:10 | HP.SP.AD_ITS ---
History - History Date of Eval: 02/01/20 Medical Diagnosis (from RX): Dysphagia, oropharyngeal phase Date of Onset of Diagnosis: 12/21/2019 Previous speech therapy: Yes Results: Modified Barium Swallow Study completed on 12/21/2019: DIET RECOMMENDATIONS: Will recommend a regular ? soft textured (IDDSI: 6), thin liquid diet (IDDSI: 0) diet. RECOMMENDED COMPENSATORY STRATEGIES: Consider chin tuck posture with thin liquids, reduced bolus volume / rate of ingestion, seated upright at 90 degrees during PO intake, remain upright for 30-60 minutes post meal (GERD precaution) Other Relevant Medical History/Diagnoses/Surgery: Acute respiratory failure with hypoxia, Upper GI bleed, Acute on chronic blood loss anemia, Type 2 diabetes mellitus, Community acquired pneumonia, Hypoxemia, A fib, Skin cancer, HTN, Sepsis, Septic shock, nasal drainage Medications related to this diagnosis: albuterol (cough, wheezing, shortness of breath), amlodipine, gabapentin, ipratropium bromide (nasal drainage), lisinopril - SEE CHART FOR FULL LIST Smoking Status: Never smoker Hx Smoking: No Hx Tobacco Use: No Hx Smoking Exposure: No - Pain Is pain an issue with your current prescribed condition?: No - Personal Right Hearing Abillity: Use of Hearing Aid Left Hearing Abillity: Use of Hearing Aid Visual Assistive Devices: Glasses Patients Living Arrangements: With Significant Other Patient Allergies - Allergies Allergies No Known Allergies Allergy (Verified 12/13/19 07:00) Objective Oral Motor - Oral Status Dentition: Missing Teeth - Labial Impairment: WNL Observation at Rest: WNL Closure: WNL Pucker: WNL Retraction: WNL Alternating Pucker/Retraction: Mild Involuntary Movement noted: No - Labial Comments Comments: Slowed alternating pucker/retraction movement. - Lingual Impairment: Mild Protrusion: WFL Retraction: WFL Lateralization: WFL Involuntary Movement: No - Lingual Comments Comments: Mild coordination deficits for up/down movement. - Jaw Impairment: WNL Opening: WNL Closing: WNL Involuntary Movement: No - Oral Motor Comments Comments: Pt with pink, moist oral mucosa. Pt appeared to have adequate oral motor strength with slowed labial and lingual coordination. Pt required repetition of instructions as pt is hard of hearing. Palate symmetrical and mobile. - Respiratory Status Respiratory Status: Room Air Comments: Uses oxygen at home PRN. Subjective Dysphagia - Symptoms Reported Symptoms/Problems with: Coughing, Weight Loss, Hx of Pneumonia Other: Lost 30 pounds in the last 3-4 months. - Current Diet Solids Current Diet: Soft - Current Diet Liquids Current Liquids: Thin Objective Dysphagia - Administered by Administered by: Self - Thin Liquids Administred via: Cup, Straw Symptoms: Couging Laryngeal Elevation: Impaired Positioning: Chin Tuck Oral Holding: No Gagging: No Comments: Pt with frequent throat clear and intermittent coughing prior to trials of po intake. Pt initially trialed sips via cup without use of chin tuck with cough, wet vocal quality following X1 sip. Trialed sips via cup with use of chin tuck and pt completed sips with with cough X1 sip. With sips by straw, pt had cough and wet quality X4 sips despite use of chin tuck on last two sips. Trialed additional sips via cup throughout remainder of session with use of chin tuck (recommended per recent MBS study completed on 12/20/2019) and pt presented with intermittent cough. - Sherman Thickened Liquids Administered via: Cup Symptoms: Throat Clearing, Couging Laryngeal Elevation: Impaired Positioning: Chin Tuck Oral Holding: No Gagging: No Comments: Attempted trials of nectar thickened liquids; however, pt had increased s/s of aspiration: throat clear on first 3 sips and coughing following 2 additional sips. - Pureed Laryngeal Elevation: Impaired Oral Holding: No Gagging: No Comments: Trialed bites of applesauce without overt s/s of aspiration. - Regular Impaired Mastication: Pt presented with prolonged, but adequate mastication. Laryngeal Elevation: Impaired Oral Holding: No Gagging: No Comments: Pt tolerated bites of regular texture Kari Doone cookie without overt s/s of aspiration or change in vocal quality. Modified Barium Results Hx MBS Report Entered: Yes MBS Results (from prior exam): 02/01/20 12:30 Speech Therapy by Dulce Maria Merchant [facility] Speech Pathology [facility] [place] [address] Modified Barium Swallow Study MR#: [id number] Acct: [id number] Name: JOAN HOWARD Rep #:[id number] From: Alireza Navarro [facility]-DIRECTOR OF SPORTS MEDICINE PRIMARY / SECONDARY DIAGNOSIS: dysphagia (R13.10) CURRENT DIET (SOLIDS): regular textures (IDDSI: 7) CURRENT DIET (LIQUIDS): thin liquid diets (IDDSI: 0) DENTITION: natural upper / lower dentition MENTAL STATUS: sufficient for participation RESPIRATORY STATUS: O2 via room air REASON FOR REFERRAL: The Patient is a 84 year old male referred for a modified barium swallow (MBS) study to objectively assess the Patients oropharyngeal swallow function under fluoroscopy secondary to reported intermittent coughing following ingestion of thin liquids occurring over the last 1-2 months. PREVIOUS MODIFIED BARIUM SWALLOW STUDY RESULTS: None ASSESSMENT PARAMETERS: The Patient participated in a Modified Barium Swallow (MBS) study on 12/20/2019. This study was recorded in the lateral view and images were sent to PACs for storage. Scoring was completed through each trial using the 8- point Penetration-Aspiration Scale (PAS) and summarized via the Modified Barium Swallow Impairment Profile (MBSImP) and the Bolus Residue Scale (BRS), with severity scoring through the Swallowing Performance Scale (SPS) and the Dysphagia Classification Scale (DCS), and recommended diet textures through the International Dysphagia Diet Standardisation Initiative (IDDSI). RESULTS OF THE EVALUATION: The Patient presents with mild oropharyngeal dysphagia (DSRS: 3; DCS: D1) with occasional shallow penetration without complete ejection of thin liquids OBJECTIVE ASSESSMENT OF SWALLOW FUNCTION (QUANTITATIVE ? PER TRIAL): PENETRATION / ASPIRATION SCALE (GUADALUPE): 1 = does not enter airway 2 = enters airway/above vocal folds/ejected 3 = enters airway/above vocal folds/not ejected 4 = enters airway/contacts vocal folds/ejected 5 = enters airway/contacts vocal folds/not ejected 6 = enters airway/below vocal folds/ejected 7 = enters airway/below vocal folds/not ejected despite effort 8 = enters airway/below vocal folds/no effort PENETRATION / ASPIRATION SCALE (SCORE): Thin liquid - 5 mL tsp.: 1 Thin liquids via cup (single sip): 1 Thin liquids via cup (single sip): 1 Thin liquids via cup (single sip): 1 Pudding via spoon: 1 Regular textured cookie: 1 Thin liquids via straw (single sip): 3 Thin liquids via straw (single sip): 1 Thin liquids via straw (chin tuck): 1 Thin liquids via straw (chin tuck): 1 Thin liquids via straw (chin tuck): 1 OBJECTIVE ASSESSMENT OF SWALLOW FUNCTION (QUANTITATIVE ? AGGREGATE): MODIFIED BARIUM SWALLOW IMPAIRMENT PROFILE (MBSImP) LABIAL SEAL: 0 (of 4) no labial escape TONGUE CONTROL: 2 (of 3) posterior escape < 50% BOLUS PREPARATION / MASTICATION: 0 (of 3) timely and efficient BOLUS TRANSPORT / LINGUAL MOTION: 1 (of 4) delayed initiation of motion ORAL RESIDUE: 2 (of 4) residue collection on oral structures INITIATION OF PHARYNGEAL SWALLOW: 1 (of 4) valleculae SOFT PALATE ELEVATION: 0 (of 4) no bolus between soft palate & pharyngeal wall LARYNGEAL ELEVATION: 1 (of 3) partial superior movement / approximation ANTERIOR HYOID EXCURSION: 1 (of 2) partial movement EPIGLOTTIC MOVEMENT: 1 (of 2) partial inversion LARYNGEAL VESTIBULE CLOSURE: 1 (of 2) incomplete closure PHARYNGEAL STRIPPING WAVE: 1 (of 2) present / diminished PE SEGMENT OPENIN (of 3) partial distension / duration / obstruction TONGUE BASE RETRACTION: 1 (of 4) trace column of contrast PHARYNGEAL RESIDUE: 2 (of 4) collection of residue ESOPHAGEAL BOLUS CLEARANCE: could not view BOLUS RESIDUE SCALE (BRS): BRS SCORE: 2 (of 6) BRS SCORE DESCRIPTION: residue in valleculae OBJECTIVE ASSESSMENT OF SWALLOW FUNCTION (SEVERITY GRADING): SWALLOWING PERFORMANCE SCALE (SPS): SPS SCORE: 3 (mild) SPS SCORE DESCRIPTION: mild dysfunction in oral or pharyngeal stage; requires modified diet without need for therapeutic swallowing precautions. DYSPHAGIA CLASSIFICATION SCALE (DCS): D1 (mild) DCS CLASSIFICATION CHARACTERISTICS: mild stasis, without food consistency restriction OBJECTIVE ASSESSMENT OF SWALLOW FUNCTION (QUALITATIVE): ORAL PREPARATORY PHASE: slightly prolonged duration of mastication; sufficient anterior oral containment during oral manipulation; preserved management of breathing / bolus formation ORAL TRANSITIONAL PHASE: sufficient bolus transportation; no lingual discoordination (no tremor / undulations); no bolus consolidation impairments with sufficient oral clearance; mild premature posterior bolus loss with thin liquids collecting within the valleculae on two occasions PHARYNGEAL PHASE: age appropriate pharyngeal phase synchrony; mild reduction in hyolaryngeal excursion and duration resulting in suboptimal laryngeal vestibule closure / pressure / duration; mild pharyngeal dysmotility with consolidation within the vallecula following trials of semisolids and solids; appropriate velopharyngeal functioning ESOPHAGEAL PHASE: no obvious esophageal phase abnormalities observed. RESPONSE TO STRATEGIES: deficits managed successfully with reduction in bolus rate / volume adjustments, some benefit noted with execution of the chin tuck posture, INTERVENTION RECOMMENDATIONS AND CONSIDERATIONS: The Patient may benefit from continued skilled speech-language intervention targeting diet texture management and training / implementation of recommended compensatory strategies; training and implementation of recommended oropharyngeal strengthening exercises to facilitate improved laryngeal vestibule closure / pressure and pharyngeal motility. POST ASSESSMENT EDUCATION: The results and recommendations were discussed with the Patient immediately following MBS completion, with the Patient verbalizing understanding and agreement with all recommendations and education provided. DIET TEXTURE RECOMMENDATIONS: Will recommend a regular ? soft textured (IDDSI: 6), thin liquid diet (IDDSI: 0) diet RECOMMENDED COMPENSATORY STRATEGIES: Consider chin tuck posture with thin liquids, reduced bolus volume / rate of ingestion, seated upright at 90 degrees during PO intake, remain upright for 30-60 minutes post meal (GERD precaution) IMAGE COUNT: [id number] Alireza Franco M.A., [facility]-DIRECTOR OF SPORTS MEDICINE, CBIS MBSImP Certified, LSVT Certified [facility] Speech-Language Pathology Department Email: [email or web address] 12/21/191934 <Electronically signed by Alireza Franco M.A. CCC-DIRECTOR OF SPORTS MEDICINE> Date _ Alireza Franco M.A. CCC-DIRECTOR OF SPORTS MEDICINE Co-Signature Required for all Medicare patients Date/Time _ Co-Signature Initialized on 02/01/20 12:30 - END OF NOTE Dysphagia Assessment - Impact Impact on Safety & Functioning: Risk for Aspiration - Recommendations Modified Barium Swallow/Cookie Swallow Recommended: No Swallowing Treatment: Yes - Diet Texture Recommendations Solids Other: Soft Liquids: Thin - Safety Saftey Precautions/Swallowing Recommendations (Check all that Apply): Needs Verbal Cues to Use Recommended Strategies, Small Sips & Bites when Eating, No Straw Other: Slow rate, single sips, consider chin tuck with thin liquids - Compensatory Strategies Compensatory Strategies: Chin Tuck Plan - Plan Plan: Pt presents with mild-moderate oropharyngeal phase dysphagia characterized by mild lingual discoordination, decreased hyolaryngeal elevation/excursion, and increased s/s of aspiration completing thin liquids without use of compensatory strategies (e.g. single sips, chin tuck, no straw). Plan to implement home exercise program to improve oropharyngeal function and provide further education in aspiration precautions and compensatory strategies to decrease pt's risk for aspiration. - Recommendations MBS: No Treatment Warranted: Yes - Frequency Frequency: 1x/Week Duration: 4-6 Weeks - Prognosis Prognosis: Good - Goals that are Established: Determination:: Goals will be added/modified as deemed necessary and appropriate. Therapy will be discontinued when results of re-evaluation indicate therapy is no longer needed or lack of progress has been documented. - Goal #1-5 Goal #1: Pt will tolerate least restrictive diet textures without overt s/s of aspiration with 90% accuracy given minimal verbal cues for use of compensatory strategies to reduce risk for aspiration across 3 consecutive sessions. Goal #2: Pt will verbalize/demonstrate awareness of aspiration precautions and compensatory strategies with 90% accuracy given min verbal cues to decrease risk for aspiration across 3 consecutive sessions. Goal #3: Pt will complete oropharyngeal strengthening exercises X10-20 repetitions with minimal verbal prompting to improve swallow function and decrease risk for aspiration across 3 consecutive sessions. Education - Patient has Indicated that the Following Identified Educational Needs: Hearing/Vision/Speech Impaired - Patient Instruction Patient Education: Diagnosis, Treatment Plan, Goals, Safety Precautions, Diet Level, Home Exercise Program Other Education: Provided pt home exercises to complete 3-4X/day to improve swallow function and decrease risk for aspiration. Provided pt handout for exercises, current diet recommendation, and aspiration precautions. Person Taught: Patient Teaching Method: Discussion, Demonstration, Handout Response to teaching: Return demonstration
--- NOTE | 2020-03-05 11:34 | ST ---
[facility] Speech Pathology [address] [place] [address] Modified Barium Swallow Study MR#: [id number] Acct: [id number] Name: JOAN HOWARD Rep #: [id number] : [id number] From: Vane Liang M.A. [facility]-[employer]APH[employer]IST Modified Barium Swallow - Patient Information Study Date: 03/04/20 Study Time: 13:00 Direct Billable Minutes: 130 Total Minutes procedure & reportin Diagnosis: Oropharyngeal Dysphagia Referring Physician: Félix Tsai Reason for Referral: Further assessment of oropharyngeal swallow function under fluoroscopy was recommended to objectively identify benefit from dysphagia services received to date, determine appropriate interventions for ongoing dysphagia management and to further tailor recommendations for diet texture, liquid viscosity and compensatory swallowing strategy use to best meet this patient's specific needs, which will allow for maximal benefit and optimal outcome from therapeutic services received. Medical History: Acute respiratory failure with hypoxia, Upper GI bleed, Acute on chronic blood loss anemia, Type 2 diabetes mellitus, Community acquired pneumonia, Hypoxemia, A fib, Skin cancer, HTN, Sepsis, Septic shock, nasal drainage - see medical record for additional details Current Diet Ordered: regular textures/thin liquids Dentition: Natural Teeth Mental Status: Impaired Comment: Pt demonstrated reduced insight/difficulty recalling details re: current dysphagia plan of care - denied awareness/need for use of any compensatory swallowing strategies w/ PO intake. Noted slowed processing speed w/ the patient requiring repetition of instructions to comprehend and respond/execute appropriately. Respiratory Status: Oxygenating on Room Air - Study Findings Consistencies: Thin Liquid, [place] Thick Liquid, Pudding, Cookie - Penetration-Aspiration Scale Penetration-Aspiration Scale: OBJECTIVE ASSESSMENT OF SWALLOW FUNCTION (QUANTITATIVE ? PER TRIAL): PENETRATION / ASPIRATION SCALE (GUADALUPE): 1 = does not enter airway 2 = enters airway/above vocal folds/ejected 3 = enters airway/above vocal folds/not ejected 4 = enters airway/contacts vocal folds/ejected 5 = enters airway/contacts vocal folds/not ejected 6 = enters airway/below vocal folds/ejected 7 = enters airway/below vocal folds/not ejected despite effort 8 = enters airway/below vocal folds/no effort - Penetration-Aspiration Scale Score Thin Liquid via teaspoon Result: 1= does not enter airway Thin Liquid via teaspoon Trial 2 Result: 1= does not enter airway Thin Liquid via small single sip from cup Result: 1= does not enter airway Thin Liquid via small single sip from cup Effortful swallow Result: 1= does not enter airway [place] Thick Liquid via small single sip from cup Result: 1= does not enter airway - [place] Thick Liquid via small single sip from cup Trial 2 Result: 1= does not enter airway Pudding Result: 1= does not enter airway Cookie Result: 1= does not enter airway Thin Liquid via small single sip from cup Trial 2 Result: 3= enters airways/above vocal folds/not ejected Thin Liquid via small single sip from cup Trial 3 Result: 1= does not enter airway Pudding Other Result: 1= does not enter airway Comment: slightly obliqued position w/ R arm up to improve view of PES/upper esophagus Pudding Other Trial 2 Result: 1= does not enter airway Comment: slightly obliqued position w/ R arm up to improve view of PES/upper esophagus Thin Liquid via small single sip from cup Other Trial 4 Result: 1= does not enter airway Comment: slightly obliqued position w/ R arm up to improve view of PES/upper esophagus Thin Liquid via small single sip from cup Other Trial 5 Result: 1= does not enter airway Comment: slightly obliqued position w/ R arm up to improve view of PES/upper esophagus Thin Liquid via single sip from straw Other Result: 1= does not enter airway Comment: slightly obliqued position w/ R arm up to improve view of PES/upper esophagus Thin Liquid via single sip from straw Other Trial 2 Result: 1= does not enter airway Comment: slightly obliqued position w/ R arm up to improve view of PES/upper esophagus Thin Liquid via single sip from straw Right head turn Result: 1= does not enter airway Comment: slightly obliqued position w/ R arm up to improve view of PES/upper esophagus Thin Liquid via single sip from straw Left head turn Result: 1= does not enter airway Comment: slightly obliqued position w/ R arm up to improve view of PES/upper esophagus - Oral Phase Labial Seal: No Labial Escape Tongue Control During Bolus Hold: Posterior escape of less than half of bolus Bolus Preparation/Mastication: Timely and efficient chewing and mashing Bolus Transport/Lingual Motion: Delayed initiation of tongue motion Oral Residue: Residue collection on oral structures - Pharyngeal Phase Initiation of Pharyngeal Swallow: Bolus head in pyriforms Soft Palate Elevation: No bolus between soft palate and pharyngeal wall Laryngeal Elevation: Partial superior movement thyroid cart/partial apprx aryt-epig petiole Anterior Hyoid Excursion: Partial anterior movement Epiglottic Movement: Partial inversion Laryngeal Vestibule Closure at Height of Swallow: Incomplete; narrow column of air/contrast in laryngeal vestibule Pharyngeal Stripping Wave: Present - diminished Pharyngoesophageal Segment Opening: Parital distension and partial duration; parital obstruction of flow Tongue Base Retraction: Narrow column of contrast between tongue base & post. pharyngeal wall Pharyngeal Residue: Collection of residue within or on pharyngeal structures - Esophageal Phase Esophageal Clearance: Esophageal retention - Treatment Strategies Effects of treatment strategies attemped:: Right Head Turn: effective to improve pharyngeal clearance/reduce residue lining the L aryepiglottic fold/pyriform sinus post deglutition Double Swallow: effective to improve clearance of vallecular stasis post deglutition Liquid Wash: effective to improve clearance of vallecular stasis post deglutition Reduced Bolus Size/Volume: effective to reduce degree of premature pharyngeal bolus entry prior to swallow onset w/ improved swallow onset timing - Diagnosis/Impression Diagnosis: Mild oropharyngeal dysphagia Impression: This patient presents with mild oropharyngeal dysphagia. Oral phase is marked by: sufficient labial seal w/out anterior bolus loss mildly prolonged mastication time delayed initiation of lingual sweep for A-P bolus transfer Pharyngeal phase marked by: premature pharyngeal bolus entry w/ delayed swallow onset inconsistent swallow onset time w/ thin liquid reaching the pyriform sinuses at worst and pudding reaching the posterior laryngeal surface of the epiglottis at worst prior to pharyngeal swallow onset reduced tongue base to posterior pharyngeal wall contact w/ reduced pharyngeal contraction incomplete hyopharyngeal excursion and incomplete epiglottic inversion w/ suboptimal laryngeal vestibule closure w/ reduced distention and duration of the pharyngoesophageal segment residue retention post deglutition evident in the vallecula and pyriforms with contrast also lining the aryepiglottic folds (L > R) compensatory strategies were effective to improve bolus clearance use of a right head turn was effective to clear L aryepiglottic fold contrast retention Esophageal phase was unremarkable. Aspiration was not observed under fluoroscopy. Wet vocal quality and throat clearing were noted following MBS completion. Given presentation during MBS, suspect that aryepiglottic fold/pyriform residue may be penetrating into the laryngeal vestibule, along w/ trace penetration w/out ejection that observed 2x during, potentially contacting the vocal folds w/ gravitational assist, contributing to wet vocal quality and throat clearing. - Recommendations Diet: Regular Textures, Thin Liquids Compensatory Strategies: Small Bites, Small Sips, Slow Rate, Multiple Swallows - cough/reswallow as needed when wet vocal quality evident, Alternate bites/solids and sips/liquids, Sitting upright Recommend Repeat Modified Barium Swallow: No Comment: This patient requires continued outpatient skilled dysphagia intervention targeting education re: safety and use of compensatory swallowing strategies and consistent implementation of his home oropharyngeal strengthening exercise regimen. Trial of R head turn w/ deglutition should be completed under direct MARKETING GRAPHICS SPECIALIST supervision to assess effect on swallow function across multiple trials of PO intake. Need for Skilled Speech Therapy Services: Yes - This pateint requires continued outpatient treatme Education Completed: 1. Described result of evaluation., 2. Pt understands evaluation & agrees with goals and treatment plan., 7. Pt requires further education on strategies & risks. - Image Count: 4,[phone] - Status Active ST Patient: Active - Contact Information [facility] Speech Therapy:: Vane Liang M.A, [employer]APH[employer] SPECIALIST [facility] Speech-Language Pathologist [email or web address] [phone] 03/04/20 1535 <Electronically signed by Vane Liang M.A. [employer]-MARKETING GRAPHICS SPECIALIST> Date Vane Liang M.A. [employer]-MARKETING GRAPHICS SPECIALIST Co-Signature Required for all Medicare patients Date/Time Co-Signature CC: ~
--- NOTE | 2020-06-13 16:24 | HP.SP.DC ---
ST Discharge Summary - Discharged: Discharge: The patient participated in a speech therapy evaluation on 02/01/2020. POC initiated to address oropharyngeal phase dysphagia. The pt participated in 9 sessions and a MBS study recommending Regular Textures, Thin Liquids with the following Compensatory Strategies: Small Bites, Small Sips, Slow Rate, Multiple Swallows - cough/reswallow as needed when wet vocal quality evident, Alternate bites/solids and sips/liquids, Sitting upright. The pt was provided handouts and thorough education regarding above mentioned comensatory strategies, as well as oropharyngeal strengthening exercises. The patient has not been seen for a speech therapy visit since 04/09/2020. [employer] attempted calling pt on 3 occasions to speak with he and his for family education, but [employer] unable to successfully connect (no answering machine, asked to call later but still unavailable when [employer] re-attempted calls). The patient has not called to schedule additional visits. Pt will be discharged from speech therapy at this time. Would gladly see pt in the future to further educate pt and pt's in recommendations to reduce risk for aspiration, as well as review exercise program.
== END 2020-04-09 19:00 | disposition home or self-care (01) ==
LOC: SP 11:30
PROVIDERS: PCP Internal Medicine; Referring Provider Otolaryngology; Visit Provider Otolaryngology
DX: R13.12 Dysphagia, oropharyngeal phase (principal)
CPT/HCPCS: 92507; 92526; 92610

== ENCOUNTER → 2020-06-14 13:55 | Outpatient (CLI) | payer MEDICARE, SELFPAY ==
[2020-05-15 08:19] VITALS: BMI 26.6
[2020-06-14 14:20] LABS: Hematocrit 43.2 % (40-54); Hemoglobin 13.2 g/dL (13.0-16.5); Mean Corp Hgb Conc 30.6 g/dL (32-36); Mean Corpuscular Hgb 29.1 pg (27.0-32.0); Mean Corpuscular Volume 95.2 fL (80-94); Mean Platelet Vol. 9.3 fl (6.2-12.0); Platelet Count 289 K/mm3 (150-450); RBC Distribution Width CV 14.8 % (11.6-14.6); RBC Distribution Width SD 51.2 fl (35.1-43.9); Red Blood Count 4.54 M/mm3 (4.6-6.2); White Blood Count 13.5 K/mm3 (4.4-11.0)
--- NOTE | 2020-06-14 14:26 | RAD_ITS ---
STUDY: X-RAY CHEST REASON FOR EXAM: Male, 85 years old. recurrent aspiration, chest pain x years -- pt states and quot;left lung is not 100% and quot; TECHNIQUE: PA and lateral views of the chest. COMPARISON: 10/31/2019 FINDINGS: Increase in the alveolar opacities in both lung bases consistent with worsening chronic lung disease. There is no demonstrated pleural abnormality. Normal size heart. Normal mediastinum and bennett. Normal visualized pulmonary arteries. Normal visualized aortic arch and descending thoracic aorta. Normal visualized thoracic spine. Normal visualized ribs, clavicles, and shoulders. There is no demonstrated abnormality of the visualized soft tissue structures of the upper abdomen. RAD/Chest PA and Lateral IMPRESSION: Worsening basilar predominant chronic lung disease. Electronically Signed: Usman Howell MD at 6:59 EST Tel , Service support ,
[2020-06-14 14:33] LABS: BUN 38 mg/dL (7-18); Creatinine, Serum 1.21 mg/dL (0.70-1.30); Glucose 121 mg/dL (74-106)
[2020-06-14 14:34] LABS: Anion Gap 4 (5-15); BUN/Creat Ratio 31.4 RATIO (10-20); Calcium,Total 9.4 mg/dL (8.5-10.1); Chloride 104 mmol/L (98-107); EST Glomerular Filtration Rate 60 mL/min (>60); Est Glom Filt Rate - Afr Amer 73 mL/min (>60); Potassium 4.5 mmol/L (3.5-5.1); Sodium Level 140 mmol/L (136-145)
[2020-06-14 14:36] LABS: BNP,B-Type NATRIURETIC PEPTIDE 275.4 pg/mL (0-100)
== END ==
PROVIDERS: PCP Internal Medicine; Referring Provider Nurse Practitioner Acute Care; Visit Provider Nurse Practitioner Acute Care
DX: D62 Acute posthemorrhagic anemia (principal); J69.0 Pneumonitis due to inhalation of food and vomit
CPT/HCPCS: 36415; 71046; 80048; 83880; 85027

== ENCOUNTER 2020-10-03 09:35 | Inpatient (IN) | payer MEDICARE, SELFPAY ==
[2020-10-03] VITALS (12 sets, daily range): BP systolic 129–137; BP diastolic 65–85; PULSE 66–89; RESP 19–28; TEMP 36.4–36.7; O2SAT 78–95; BMI 25.8; BMI 24.5; BMI 24.9
--- NOTE | 2020-10-03 09:47 | EKG12_ITS ---
Test Reason : Blood Pressure : / mmHG Vent. Rate : 084 BPM Atrial Rate : 084 BPM P-R Int : 164 ms QRS Dur : 090 ms QT Int : 366 ms P-R-T Axes : 086 001 025 degrees QTc Int : 432 ms Normal sinus rhythm Normal ECG Confirmed by AMAN BLACK, TRENT ([id number]), desk editor ILENE ABBOTT ([id number]) on 10/08/2020 9:49:30 AM Referred By: Confirmed By:ANOOP NEWTON MD
--- NOTE | 2020-10-03 09:48 | ED.VIS.DYS ---
HPI History of Present Illness Chief Complaint: Shortness of Breath Narrative Narrative: 85-year-old male presenting from Dr. Britt's office after found to be hypoxic in office. Patient states he was there for a checkup. He states that he has felt mostly well. He does complain of shortness of breath which is chronic. He wears about 3 L of oxygen at home however he states with approximately 50 feet of line he does not feel as if he is getting enough oxygen all of the time. He states that when he walks to the restroom he becomes pretty dyspneic. Patient was on portable oxygen today and he presented hypoxic in office. Patient states he is not having any chest pain. He denies fever. He states he has been eating and drinking normally. He has normal urine and stool. Patient relates that he has history of blood clots as well as history of atrial fibrillation but states he has not anticoagulated. [facility] Medical History Acute on chronic blood loss anemia Acute respiratory failure with hypoxia Community acquired pneumonia HTN (hypertension) Hypoxemia New onset atrial fibrillation Sepsis Septic shock Skin cancer Type 2 diabetes mellitus Upper GI bleed Home Medications amlodipine 10 mg PO DAILY 06/16/18 [History Last Taken 06/16/18] ipratropium bromide 2 spray NASAL BID 06/16/18 [History Last Taken 06/16/18] albuterol sulfate 1 - 2 puff INHALATION Q4H PRN PRN #1 inhaler 06/19/18 [Rx Last Taken Unknown] ferrous gluconate 324 mg PO DAILY #60 tab 04/20/19 [Rx Last Taken Unknown] metformin 500 mg PO BIDCM #0 04/20/19 [Rx Last Taken 06/16/18] metoprolol succinate 50 mg PO DAILY #0 04/20/19 [Rx Last Taken 06/16/18] potassium chloride 20 meq PO DAILY PRN PRN #30 tab 04/20/19 [Rx Last Taken Unknown] aspirin 81 mg PO DAILY@0800 05/06/19 [History Last Taken Unknown] furosemide 40 mg PO DAILY PRN PRN 05/06/19 [History Last Taken Unknown] lisinopril 10 mg PO DAILY 05/06/19 [History Last Taken Unknown] pantoprazole 40 mg PO BID #60 tab 05/09/19 [Rx Last Taken Unknown] sucralfate 1 g PO 1HR_ACHS #120 tab 05/09/19 [Rx Last Taken Unknown] ipratropium 0.5 mg-albuterol 3 mg (2.5 mg base)/3 mL nebulization soln 3 ml INHALATION Q4HWA.RT #30 ampul.neb 05/19/19 [Rx Last Taken Unknown] fluticasone propionate 50 mcg/actuation nasal spray,suspension 2 spray INTRANASAL DAILY #16 g 03/20/20 [Rx Last Taken Unknown] PEP device #1 ea 04/04/20 [Rx Last Taken Unknown] guaifenesin 1,200 mg tablet, extended release 12 hr 1,200 mg PO Q12H #60 tab 06/17/20 [Rx Last Taken Unknown] prednisone 10 mg tablet 10 mg PO QDAY #30 tab 08/13/20 [Rx Last Taken Unknown] Allergy/AdvReac Type Severity Reaction Status Date / Time No Known Allergies Allergy Verified 10/03/20 09:40 Surgical History History of esophagogastroduodenoscopy (EGD) Social History Smoking Status: Former smoker alcohol intake: current details: Occasionally substance use type: does not use ROS ROS ED Constitutional Constitutional ED: Denies chills, fever(s) or sweats Eyes Eyes: Denies blurry vision or change in vision ENT ENT ED: Denies ear pain, rhinorrhea or sore throat Cardiovascular Cardiovascular: Denies chest pain, palpitations or racing heartbeat Respiratory/Chest Respiratory/Chest: Reports dyspnea; Denies cough or sputum Gastrointestinal Gastrointestinal: Denies abdominal pain, constipation, diarrhea or vomiting Genitourinary Genitourinary ED: Denies dysuria, hematuria or urinary frequency Musculoskeletal Musculoskeletal: Denies arthralgias, myalgias or neck pain Integumentary Denies abscess, Abrasions or rash Neurologic Neurologic: Denies headache(s), paresthesias or weakness Psychiatric Psychiatric: Denies anxiety, depression, suicidal ideation or suicidal thoughts Endocrine Endocrinology: Denies polydipsia or polyuria EXAM Physical Exam Const Vital Signs: 10/03/20 09:37 10/03/20 09:43 10/03/20 10:31 Temperature 97.6 F L 97.6 F L 97.6 F L Temperature Source Oral Oral Oral Pulse Rate 82 74 73 Respiratory Rate 25 H 28 H 22 H Respiratory Effort Short of Breath Respiratory Pattern Tachypnea Blood Pressure 132/65 H 132/65 H 132/65 H Blood Pressure Mean 87 87 87 Pulse Ox 78 92 92 Oxygen Delivery Method Room Air Nasal Cannula Nasal Cannula Oxygen Flow Rate (L/min) 6 6 10/03/20 11:30 Temperature 97.6 F L Temperature Source Temporal Pulse Rate 66 Respiratory Rate 22 H Respiratory Effort Respiratory Pattern Blood Pressure 129/84 H Blood Pressure Mean 99 Pulse Ox 95 Oxygen Delivery Method Nasal Cannula Oxygen Flow Rate (L/min) 4 Positive well nourished General Appearance ED: NAD; Negative for pallor HEENT Reports normocephalic, head/scalp atraumatic and moist mucous membranes atraumatic Eyes PERRL and EOMs intact bilaterally Neck no lymphadenopathy and supple Chest Wall inspection of chest normal and palpation of chest normal Resp Resp Narrative: Tachypneic Auscultation: rhonchi; Negative for wheezes Cardio regular rate and regular rhythm GI normal to inspection, nondistended, normoactive bowel sounds and non-distended Auscultation: normoactive bowel sounds Palpation: soft Narrative: Deferred Back/Spine no CVA tenderness General Back: Negative for CVA tenderness Cervical Spine: Negative for cervical spine tenderness Extremity normal to inspection General Extremety ED: Yes edema and tenderness General Extremity: edema Neuro oriented x3 and CN's II-XII intact bilaterally Sensorium / Orientation: alert Motor Exam: strength 5/5 throughout Psych mental status grossly normal Attitude: No agitated Skin no rashes or lesions noted and no wounds General Skin Exam: Negative for jaundice or pallor MDM MDM MDM Narrative Medical decision making narrative: 85-year-old male presenting with dyspnea and found to be hypoxic and tachypneic. Nursing staff relates that he was very winded on arrival. He appears to be mentating clearly. He was able to catch his breath needs talking to me normally. He is not using accessory muscles to breathe. He states that he does have some chronic shortness of breath which seems to be worse recently. He is having difficulty ambulating around his home. Patient was sent for concern of A. fib and possibly PE. He had EKG performed on arrival which is sinus rhythm at 84 bpm without any signs of ischemic changes as interpreted by myself. Chest x-ray shows worsening interstitial airspace opacities as interpreted by myself and radiology does agree. Patient had lab work drawn which shows a leukocytosis of 14,000 hemoglobin 13.9 hematocrit 45.2 platelets 288 coagulation studies normal. D-dimer was elevated at 2.11. Patient's renal function looks to be near his baseline. Lactic acid 3.1. Covid swab is negative. Patient had CTA of the chest due to elevated D-dimer which shows what looks to be interstitial infiltrates. Radiology does think this looks consistent with Covid however he has no other symptoms other than the shortness of breath and hypoxia. Given patient's vital signs and labs he was pancultured. Urine is pending. Patient states he has not been hospitalized in over a year so he was given Rocephin and azithromycin. Patient was discussed with hospitalist and he will go to PCU. Patient stable on transfer to the floor. Impression: 1. Community-acquired pneumonia 2. Severe sepsis 3. Hypoxic respiratory failure Lab Data Labs: Laboratory Results - last 24 hr 10/03/20 10/03/20 10/03/20 09:40 09:40 09:40 WBC 14.0 H RBC 4.53 L Hgb 13.9 Hct 45.2 MCV 99.8 H MCH 30.7 MCHC 30.8 L RDW Std Deviation 54.7 H RDW Coeff of James 14.8 H Plt Count 288 MPV 9.4 Immature Gran % (Auto) 0.400 Neut % (Auto) 82.2 H Lymph % (Auto) 10.4 L [place] % (Auto) 6.4 Eos % (Auto) 0.4 Baso % (Auto) 0.2 Absolute Neuts (auto) 11.5 H Absolute Lymphs (auto) 1.46 Nucleated RBC % 0 PT 11.6 L INR 0.9 APTT 24.6 D-Dimer Quant (PE/DVT) 2.11 H* Sodium 139 Potassium 4.3 Chloride 100 Carbon Dioxide 35.0 H Anion Gap 4 L BUN 45 H Creatinine 1.42 H Estim Creat Clear Calc 38.56 Est GFR (MDRD) Af Amer 61 Est GFR (MDRD) Non-Af 50 L BUN/Creatinine Ratio 31.7 H Glucose 224 H Lactic Acid Calcium 9.6 Total Bilirubin 0.20 AST 12 L ALT 18 Alkaline Phosphatase 127 H Total Protein 7.7 Albumin 3.2 Globulin 4.5 H Albumin/Globulin Ratio 0.7 L 10/03/20 10:02 WBC RBC Hgb Hct MCV MCH MCHC RDW Std Deviation RDW Coeff of James Plt Count MPV Immature Gran % (Auto) Neut % (Auto) Lymph % (Auto) [place] % (Auto) Eos % (Auto) Baso % (Auto) Absolute Neuts (auto) Absolute Lymphs (auto) Nucleated RBC % PT INR APTT D-Dimer Quant (PE/DVT) Sodium Potassium Chloride Carbon Dioxide Anion Gap BUN Creatinine Estim Creat Clear Calc Est GFR (MDRD) Af Amer Est GFR (MDRD) Non-Af BUN/Creatinine Ratio Glucose Lactic Acid 3.1 H* Calcium Total Bilirubin AST ALT Alkaline Phosphatase Total Protein Albumin Globulin Albumin/Globulin Ratio Radiography Diagnostic Testing: Radiology Impression Chest CTA 10/03/20 10:20 IMPRESSION: No demonstrated PE, or thoracic aortic aneurysm or dissection Diffuse interstitial and airspace opacifications in both lung schmid, particularly the lung bases, more prominent in the left lung than the right. This pattern of opacification is most consistent with Covid. No demonstrated effusion Calcified coronary vessels Degenerative bony changes Electronically Signed: Meliton Robbins MD at 11:03 EDT , Service support , Chest X-Ray 10/03/20 10:42 IMPRESSION: Worsening interstitial and airspace opacifications in both lung schmid with stable left pleural effusion. This pattern of opacification is most consistent with Covid. Electronically Signed: Meliton Robbins MD at 10:59 EDT , Service support , Discharge Plan Triage Chief Complaint: Shortness of Breath ED Provider: Waldemar Russo Dx/Rx/DC Orders Prescriptions: No Action ipratropium-albuterol 0.5 mg-3 mg(2.5 mg base)/3 mL solution for nebulization 3 ml inhalation Q4HWA.RT Qty: 30 RF: 3 fluticasone propionate 50 mcg/actuation spray,suspension 2 spray INTRANASAL DAILY Qty: 16 RF: 3 (DME) PEP device See Rx Instructions .ROUTE .MEDSUPPLY Qty: 1 RF: 0 amlodipine 10 MG tablet 10 mg PO DAILY RF: 0 ipratropium bromide 42 MCG spray,non-aerosol 2 spray NASAL BID RF: 0 albuterol sulfate 1 INHALER inhaler 1 - 2 puff inhalation Q4H PRN PRN (Reason: Shortness Of Breath) Qty: 1 RF: 0 metformin 500 MG tablet 500 mg PO BIDCM Qty: 0 RF: 0 metoprolol succinate 100 MG tablet 50 mg PO DAILY Qty: 0 RF: 0 ferrous gluconate 324 MG tablet 324 mg PO DAILY Qty: 60 RF: 0 potassium chloride 20 MEQ tablet 20 meq PO DAILY PRN PRN (Reason: WITH LASIX) Qty: 30 RF: 0 furosemide 20 MG tablet 40 mg PO DAILY PRN PRN (Reason: lasix) RF: 0 lisinopril 40 MG tablet 10 mg PO DAILY RF: 0 aspirin 81 MG tablet,chewable 81 mg PO DAILY@0800 RF: 0 sucralfate 1 GM tablet 1 g PO 1HR_ACHS Qty: 120 RF: 0 pantoprazole 40 MG tablet 40 mg PO BID Qty: 60 RF: 0 guaifenesin 1,200 mg tablet extended release 12hr 1,200 mg PO Q12H Qty: 60 RF: 6 prednisone 10 mg tablet 10 mg PO QDAY Qty: 30 RF: 1 Primary Care Provider: Yair Hart
[2020-10-03 09:59] LABS: Absolute Lymphocyte Count 1.46 X10^3/uL (0.83-4.51); Absolute Neutrophil Count 11.5 X10^3/uL (2.0-7.7); Basophil# 0.03 X10^3/uL; Basophil% 0.2 % (0-1); Eosinophil# 0.06 X10^3/uL; Eosinophils% 0.4 % (0-5); Hematocrit 45.2 % (40-54); Hemoglobin 13.9 g/dL (13.0-16.5); Lymphocyte # 1.46 X10^3/ul (0.83-4.51); Lymphocyte % 10.4 % (19-41); Mean Corp Hgb Conc 30.8 g/dL (32-36); Mean Corpuscular Hgb 30.7 pg (27.0-32.0); Mean Corpuscular Volume 99.8 fL (80-94); Mean Platelet Vol. 9.4 fl (6.2-12.0); Monocyte% 6.4 % (0-10); NRBC Flagged by Analyzer 0 % (0-5); Neutrophil # 11.52 X10^3/uL (2.7-7.7); Neutrophil % 82.2 % (47-70); Platelet Count 288 K/mm3 (150-450); RBC Distribution Width CV 14.8 % (11.6-14.6); RBC Distribution Width SD 54.7 fl (35.1-43.9); Red Blood Count 4.53 M/mm3 (4.6-6.2)
[2020-10-03 10:11] LABS: ALB/GLOB Ratio 0.7 RATIO (0.9-2.4); AST(SGOT) 12 U/L (15-37); Alanine Aminotransfer ALT/SGPT 18 U/L (16-61); Albumin, Serum 3.2 g/dL (3.2-5.0); Alkaline Phosphatase 127 U/L (45-117); Anion Gap 4 (5-15); BUN 45 mg/dL (7-18); BUN/Creat Ratio 31.7 RATIO (10-20); Calcium,Total 9.6 mg/dL (8.5-10.1); Chloride 100 mmol/L (98-107); Creatinine, Serum 1.42 mg/dL (0.70-1.30); EST Glomerular Filtration Rate 50 mL/min (>60); Est Glom Filt Rate - Afr Amer 61 mL/min (>60); Estimated Creatinine Clearance 38.56 ml/min; Globulin 4.5 g/dL (2.2-4.2); Glucose 224 mg/dL (74-106); Potassium 4.3 mmol/L (3.5-5.1); Protein, Total 7.7 g/dL (6.4-8.2); Sodium Level 139 mmol/L (136-145)
[2020-10-03 10:13] LABS: International Normalized Ratio 0.9; Partial Thromboplast Time 24.6 Seconds (24.1-36.2); Prothrombin Time (Protime)PT. 11.6 SECONDS (11.7-14.9)
[2020-10-03 10:16] LABS: D-Dimer Quantitative (DVT/PE) 2.11 FEU/ug/m (0.27-0.49)
--- NOTE | 2020-10-03 10:20 | CT_ITS ---
STUDY: CTA CHEST REASON FOR EXAM: Male, 85 years old. Worsening shortness of breath RADIATION DOSAGE (If Supplied By Facility): CTDIvol = ( 10.56 ) mGy, DLP = ( 358.03 ) mGycm TECHNIQUE: The examination was performed with the intravenous administration of IV 100mL [id number]-370. Post-processing of the angiographic images was performed, with multiplanar reformation and 3D reconstruction. Individualized dose optimization techniques were used for this CT. COMPARISON: None. FINDINGS: Normal enhancement of the main pulmonary artery and right and left pulmonary arteries. Normal enhancement of the bilateral peripheral pulmonary arteries. There is no demonstrated pulmonary embolism. There is atherosclerotic calcification of the aortic arch with tortuosity. There is no demonstrated aortic dissection. Normal heart and pericardium. There are calcifications of the coronary arteries. There are visualized mediastinal lymph nodes, which are within normal size limits, and with normal morphology. Normal hilar regions. There is peribronchial thickening. The lungs are well expanded. Diffuse patchy interstitial and airspace opacifications in both lung schmid, more prominent in the left lung than the right and particularly in the lung bases. This pattern of opacification is most suggestive of Covid pneumonia. Normal pleura. Normal chest wall structures. There are degenerative changes of thoracic spine. Normal visualized upper abdomen. CT/CTA Chest W/WO Contrast IMPRESSION: No demonstrated PE, or thoracic aortic aneurysm or dissection Diffuse interstitial and airspace opacifications in both lung schmid, particularly the lung bases, more prominent in the left lung than the right. This pattern of opacification is most consistent with Covid. No demonstrated effusion Calcified coronary vessels Degenerative bony changes Electronically Signed: Meliton Robbins MD at 11:03 EDT , Service support ,
--- NOTE | 2020-10-03 10:42 | RAD_ITS ---
STUDY: X-RAY CHEST REASON FOR EXAM: Male, 85 years old. Worsening shortness of breath TECHNIQUE: Single AP portable view of the chest. COMPARISON: 06/14/2020 FINDINGS: EKG leads overlie the chest Lungs are expanded with worsening interstitial and airspace opacifications when compared to the previous study. Stable left pleural effusion. This pattern of opacification is most consistent with Covid. Normal size heart. Normal mediastinum and bennett. Normal visualized pulmonary arteries. Normal visualized aortic arch and descending thoracic aorta. There are diffuse degenerative changes of the visualized thoracic spine. There is degenerative osteoarthritis of the bilateral shoulders. There is no demonstrated abnormality of the visualized soft tissue structures of the upper abdomen. RAD/Chest 1 View (Portable) IMPRESSION: Worsening interstitial and airspace opacifications in both lung schmid with stable left pleural effusion. This pattern of opacification is most consistent with Covid. Electronically Signed: Meliton Robbins MD at 10:59 EDT , Service support ,
[2020-10-03 10:49] LABS: Lactic Acid 3.1 mmol/L (0.4-1.9)
[2020-10-03 11:23] LABS: Bacteria 0 SEEN /hpf (None Seen); Mucous, Urine 0 SEEN /hpf (<or=2+); Red Blood Cells-Urine 0 SEEN /hpf (0-5); White Blood Cells 0 SEEN /hpf (0-5)
--- NOTE | 2020-10-03 11:33 | NURSING ---
DR BANEGAS FOR DR ALBERTS
[2020-10-03 11:35] LABS: Color, Urine Yellow (Yellow); Glucose, Dipstick Normal (Normal); Ketone-Dipstick Negative (Negative); Leukocyte Esterase-Dipstick Negative /ul (Negative); Nitrite-Dipstick Negative (Negative); Occult Blood-Urine Negative /ul (Negative); Protein-Dipstick 15 mg/dl (Negative); Urine Bilirubin Dipstick Negative (Negative); Urine Clarity Clear (Clear); Urine Urobilinogen Normal (Normal)
[2020-10-03] MEDS: Ceftriaxone 1 GM/50 ML BAG IV (11:39)
--- NOTE | 2020-10-03 11:43 | NURSING ---
PCU [facility] SEVERE SEPSIS, PNA, HYPOXIC RESP FAILURE
[2020-10-03 11:47] LABS: Squamous Epithelial Cells - UA 0-5 SEEN /hpf (0-5)
--- NOTE | 2020-10-03 12:31 | ECHOD_ITS ---
Reason For Study: SOB Procedure This was a 2D Doppler, Color Flow transthoracic echocardiogram. The study was technically difficult. Exam performed portable in patient room. Left Ventricle Normal LV size. The estimated ejection fraction is 60 %. Stage 2 diastolic dysfunction. No regional wall motion abnormalities noted. Right Ventricle Normal RV size. Normal systolic function. Atria The left atrium is mildly enlarged. Normal right atrium. No doppler evidence for ASD. Mitral Valve There is no mitral valve stenosis. Mild (1+) mitral valve insufficiency. Tricuspid Valve There is no tricuspid stenosis. Trivial tricuspid valve insufficiency. Pulmonary artery systolic pressure is 70 mmHg. Aortic Valve Trisinus/trileaflet aortic valve. Aortic sclerosis, no stenosis. No aortic valve insufficiency. Pulmonic Valve There is no pulmonic valvular stenosis. Trivial pulmonic valve insufficiency. Great Vessels Normal aortic root. Pericardium/Pleural No pericardial effusion. MMode/2D Measurements & Calculations LVIDd: 4.7 cm IVSd: 1.1 cm Ao root diam: 3.4 cm LVIDs: 2.7 cm LVPWd: 0.90 cm RVDd: 3.7 cm FS: 43.1 % LAV(MOD-bp): 53.4 ml LA A4 area: 19.4 cm2 LA dimension(2D): 4.2 cm LAV(MOD-bp) Indexed: 27.3 ml/m2 LAV(MOD-sp2): 44.9 ml LAV(MOD-sp4): 50.4 ml RA A4 area: 17.3 cm2 Doppler Measurements & Calculations MV E max derick: 90.9 cm/sec Lat Peak E' Derick: 6.7 cm/sec Med Peak E' Derick: 5.4 cm/sec MV A max derick: 111.1 cm/sec E/E' lat: 13.5 E/E' med: 16.9 MV E/A: 0.82 Ao V2 max: 138.5 cm/sec LV V1 max: 98.1 cm/sec PA V2 max: 78.3 cm/sec Ao max P.7 mmHg LV V1 max P.9 mmHg TR max derikc: 400.7 cm/sec TR max P.2 mmHg ECHO/Echo Complete Interpretation Summary The estimated ejection fraction is 60 %. Stage 2 diastolic dysfunction. Mild (1+) mitral valve insufficiency. Pulmonary artery systolic pressure is 70 mmHg. Ordering Physician: Yaw Lyn Referring Physician: Yair Hart M.D. Performed By: Tammie Enriquez RDCS
[2020-10-03 14:12] LABS: Reflex Lactate? Y
[2020-10-03] MEDS: 0.9% Saline Lock 10 ML Syringe IV ×2 (14:27→23:07)
[2020-10-03] MEDS: Furosemide 20 MG/2 ML VIAL IV ×2 (14:27→22:56)
--- NOTE | 2020-10-03 14:54 | PCM.HP.STD ---
Documented by User: Elida Campos NP, CREDIT ADMINISTRATION MANAGER-C 10/03/20 15:13 HPI - General General Date of Admission: 10/03/20 HPI Narrative JOAN HOWARD, is a 85 M who presents to the emergency room due to hypoxia, shortness of breath and possible A. fib. Patient was seen by pulmonary medicine for routine office visit today. Due to hypoxia and shortness of breath as well as irregular heart rhythm, patient was referred to the emergency room for further evaluation. Patient states he has had ongoing shortness of breath over the past few weeks which has been worsening. He denies cough, fever, chills. He states he has been wearing his baseline home oxygen however is not convinced he needs it. He denies exposure to sick contacts. Denies chest pain, palpitations. Denies other associated symptoms or complaints. 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 [facility] Medical History Acute on chronic blood loss anemia Acute respiratory failure with hypoxia Community acquired pneumonia HTN (hypertension) Hypoxemia New onset atrial fibrillation Sepsis Septic shock Skin cancer Type 2 diabetes mellitus Upper GI bleed Home Medications amlodipine 10 mg PO DAILY 06/16/18 [History Last Taken 10/02/20] ipratropium bromide 2 spray NASAL BID PRN PRN 06/16/18 [History Last Taken 06/16/18] albuterol sulfate 1 - 2 puff INHALATION Q4H PRN PRN #1 inhaler 06/19/18 [Rx Last Taken Unknown] metformin 500 mg PO BIDCM #0 04/20/19 [Rx Last Taken 10/02/20] metoprolol succinate 50 mg PO DAILY #0 04/20/19 [Rx Last Taken 10/02/20] furosemide 40 mg PO DAILY PRN PRN 05/06/19 [History Last Taken Unknown] lisinopril 10 mg PO DAILY 05/06/19 [History Last Taken 10/02/20] PEP device #1 ea 04/04/20 [Rx Last Taken Unknown] prednisone 10 mg PO DAILY 10/03/20 [History Last Taken 10/02/20] sertraline 25 mg PO QHS 10/03/20 [History Last Taken 10/02/20] Allergy/AdvReac Type Severity Reaction Status Date / Time No Known Allergies Allergy Verified 10/03/20 09:40 other (Denies known paternal and maternal medical history including cardiac history.) Surgical History History of esophagogastroduodenoscopy (EGD) Social History Smoking Status: Former smoker alcohol intake: current details: Occasionally substance use type: does not use ROS Constitutional Constitutional: Reports fatigue; Denies change in weight, chills, fever(s) or weakness Cardiovascular Cardiovascular: Denies chest pain, edema, lightheadedness, palpitations or syncope Respiratory/Chest Respiratory/Chest: Reports cough, dyspnea and shortness of breath with exertion; Denies productive cough, shortness of breath at rest or wheezing Gastrointestinal Gastrointestinal: Denies abdominal pain, constipation, diarrhea, nausea or vomiting Genitourinary Genitourinary: Denies burning urination, difficulty urinating, dysuria, hematuria, urinary frequency, urinary incontinence or urinary urgency Musculoskeletal Musculoskeletal: Denies back pain or joint pain Neurologic Neurologic: Denies abnormal speech, confusion, dizziness, focal weakness, numbness, paresthesias, seizure-like activity or syncope Psychiatric Psychiatric: Denies anxiety or depression Hematologic/Lymphatic Hematologic/Lymphatic: Denies anemia, easy bleeding or easy bruising Allergic/Immunologic Allergic/Immunologic: Denies hives or asthma Vital Signs Vital Signs Vital Signs: 10/03/20 09:37 10/03/20 09:43 10/03/20 10:31 Temperature 97.6 F L 97.6 F L 97.6 F L Temperature Source Oral Oral Oral Pulse Rate 82 74 73 Respiratory Rate 25 H 28 H 22 H Respiratory Effort Short of Breath Respiratory Depth Respiratory Pattern Tachypnea Blood Pressure 132/65 H 132/65 H 132/65 H Blood Pressure Mean 87 87 87 Blood Pressure Source Blood Pressure Position Blood Pressure Location Pulse Ox 78 92 92 Oxygen Delivery Method Room Air Nasal Cannula Nasal Cannula Oxygen Flow Rate (L/min) 6 6 10/03/20 11:30 10/03/20 12:44 10/03/20 13:00 Temperature 97.6 F L 97.7 F L Temperature Source Temporal Oral Pulse Rate 66 76 Respiratory Rate 22 H 20 H Respiratory Effort Normal Non-Labored Respiratory Depth Normal Respiratory Pattern Normal Blood Pressure 129/84 H 130/85 H Blood Pressure Mean 99 100 Blood Pressure Source Monitor Blood Pressure Position Semi-Fowlers Blood Pressure Location Left Arm Pulse Ox 95 89 Oxygen Delivery Method Nasal Cannula Nasal Cannula Nasal Cannula Oxygen Flow Rate (L/min) 4 4 6 Physical Exam Const alert, oriented x3 and no apparent distress Orientation / Consciousness: awake, oriented to person, oriented to place and oriented to time HEENT normocephalic and moist oral mucous membranes Eyes PERRL, EOMs intact bilaterally and conjunctivae normal Neck no lymphadenopathy Resp normal respiratory effort Auscultation: rhonchi throughout Cardio no murmurs Cardio Narrative: Atrial fibrillation Peripheral Pulses: pulses 2+ throughout GI normal to inspection, nondistended, normoactive bowel sounds, non-tender and non-distended Extremity normal to inspection Skin no rashes or lesions noted Lesions: no lesions Rashes: no rashes Trauma: no lacerations or abrasions Neuro oriented x3 Sensorium / Orientation: awake and alert Psych affect normal Lab / Micro Data Result Diagrams: 10/03/20 09:40 10/03/20 09:40 Labs: Laboratory Results - last 24 hr 10/03/20 10/03/20 10/03/20 09:40 09:40 09:40 WBC 14.0 H RBC 4.53 L Hgb 13.9 Hct 45.2 MCV 99.8 H MCH 30.7 MCHC 30.8 L RDW Std Deviation 54.7 H RDW Coeff of James 14.8 H Plt Count 288 MPV 9.4 Immature Gran % (Auto) 0.400 Neut % (Auto) 82.2 H Lymph % (Auto) 10.4 L [place] % (Auto) 6.4 Eos % (Auto) 0.4 Baso % (Auto) 0.2 Absolute Neuts (auto) 11.5 H Absolute Lymphs (auto) 1.46 Nucleated RBC % 0 PT 11.6 L INR 0.9 APTT 24.6 D-Dimer Quant (PE/DVT) 2.11 H* Sodium 139 Potassium 4.3 Chloride 100 Carbon Dioxide 35.0 H Anion Gap 4 L BUN 45 H Creatinine 1.42 H Estim Creat Clear Calc 38.56 Est GFR (MDRD) Af Amer 61 Est GFR (MDRD) Non-Af 50 L BUN/Creatinine Ratio 31.7 H Glucose 224 H Lactic Acid Calcium 9.6 Total Bilirubin 0.20 AST 12 L ALT 18 Alkaline Phosphatase 127 H Total Protein 7.7 Albumin 3.2 Globulin 4.5 H Albumin/Globulin Ratio 0.7 L Urine Color Urine Clarity Urine pH Ur Specific [place] Urine Protein Urine Glucose (UA) Urine Ketones Urine Occult Blood Urine Nitrite Urine Bilirubin Urine Urobilinogen Ur Leukocyte Esterase Urine RBC Urine WBC Ur Squamous Epith Cells Urine Bacteria Urine Mucus 10/03/20 10/03/20 10:02 11:20 WBC RBC Hgb Hct MCV MCH MCHC RDW Std Deviation RDW Coeff of James Plt Count MPV Immature Gran % (Auto) Neut % (Auto) Lymph % (Auto) [place] % (Auto) Eos % (Auto) Baso % (Auto) Absolute Neuts (auto) Absolute Lymphs (auto) Nucleated RBC % PT INR APTT D-Dimer Quant (PE/DVT) Sodium Potassium Chloride Carbon Dioxide Anion Gap BUN Creatinine Estim Creat Clear Calc Est GFR (MDRD) Af Amer Est GFR (MDRD) Non-Af BUN/Creatinine Ratio Glucose Lactic Acid 3.1 H* Calcium Total Bilirubin AST ALT Alkaline Phosphatase Total Protein Albumin Globulin Albumin/Globulin Ratio Urine Color Yellow Urine Clarity Clear Urine pH 7.0 Ur Specific [place] 1.010 Urine Protein 15 H Urine Glucose (UA) Normal Urine Ketones Negative Urine Occult Blood Negative Urine Nitrite Negative Urine Bilirubin Negative Urine Urobilinogen Normal Ur Leukocyte Esterase Negative Urine RBC 0 SEEN Urine WBC 0 SEEN Ur Squamous Epith Cells 0-5 SEEN Urine Bacteria 0 SEEN Urine Mucus 0 SEEN Micro: Microbiology 10/03/20 10:54 SARS-CoV-2 Antigen (Rapid) - Final Mucosa - Nasopharyngeal Radiology Impression Chest CTA 10/03/20 10:20 IMPRESSION: No demonstrated PE, or thoracic aortic aneurysm or dissection Diffuse interstitial and airspace opacifications in both lung schmid, particularly the lung bases, more prominent in the left lung than the right. This pattern of opacification is most consistent with Covid. No demonstrated effusion Calcified coronary vessels Degenerative bony changes Electronically Signed: Meliton Robbins MD at 11:03 EDT , Service support , Chest X-Ray 10/03/20 10:42 IMPRESSION: Worsening interstitial and airspace opacifications in both lung schmid with stable left pleural effusion. This pattern of opacification is most consistent with Covid. Electronically Signed: Meliton Robbins MD at 10:59 EDT , Service support , Assessment & Plan Assessment/Plan (1) New onset atrial fibrillation: (2) Hypoxemia: (3) Community acquired pneumonia: QUALIFIERS: Laterality: unspecified laterality Qualified Code(s): J18.9 - Pneumonia, unspecified organism PLAN: 1. Acute on chronic hypoxic respiratory failure secondary to community-acquired pneumonia, complicated by underlying postinflammatory pulmonary fibrosis-CTA without PE. Continue IV Rocephin and IV azithromycin. Albuterol and DuoNeb aerosols. Continue supplement oxygen to maintain O2 at or above 90%. Patient is on prednisone 10 mg daily per pulmonary. Speech therapy consult to assess for aspiration risk. Obtain echocardiogram. On 3 L nasal cannula at baseline. 2. Sepsis secondary to community-acquired pneumonia-treatment per above. 3. New onset atrial fibrillation-obtain echocardiogram. Continue home metoprolol regimen. Trend enzymes. 4. Hypertension-stable, on amlodipine, lisinopril, metoprolol. 5. Type 2 diabetes mellitus-hold metformin. Accu-Cheks with sliding scale insulin. 6. Depression-on sertraline. DVT prophylaxis- heparin sc This patient was seen by Elida Campos NP-C under the supervision of Dr. Lyn. Documented by User: Dr. Yaw Lyn DO 10/03/20 17:01 HPI - General General Date of Admission: 10/03/20 [facility] Medical History Acute on chronic blood loss anemia Acute respiratory failure with hypoxia Community acquired pneumonia HTN (hypertension) Hypoxemia New onset atrial fibrillation Sepsis Septic shock Skin cancer Type 2 diabetes mellitus Upper GI bleed Home Medications amlodipine 10 mg PO DAILY 06/16/18 [History Last Taken 10/02/20] ipratropium bromide 2 spray NASAL BID PRN PRN 06/16/18 [History Last Taken 06/16/18] albuterol sulfate 1 - 2 puff INHALATION Q4H PRN PRN #1 inhaler 06/19/18 [Rx Last Taken Unknown] metformin 500 mg PO BIDCM #0 04/20/19 [Rx Last Taken 10/02/20] metoprolol succinate 50 mg PO DAILY #0 04/20/19 [Rx Last Taken 10/02/20] furosemide 40 mg PO DAILY PRN PRN 05/06/19 [History Last Taken Unknown] lisinopril 10 mg PO DAILY 05/06/19 [History Last Taken 10/02/20] PEP device #1 ea 04/04/20 [Rx Last Taken Unknown] prednisone 10 mg PO DAILY 10/03/20 [History Last Taken 10/02/20] sertraline 25 mg PO QHS 10/03/20 [History Last Taken 10/02/20] Allergy/AdvReac Type Severity Reaction Status Date / Time No Known Allergies Allergy Verified 10/03/20 09:40 Surgical History History of esophagogastroduodenoscopy (EGD) Social History Smoking Status: Former smoker alcohol intake: current details: Occasionally substance use type: does not use Lab / Micro Data Result Diagrams: 10/03/20 09:40 10/03/20 09:40 Addendum Addendum: Patient was seen and examined today independently of Elida Campos, he was seen in his apprise counselor office today and directed to go to the emergency room due to a low pulse ox, patient also had an irregular rhythm and there were concerns about atrial fibrillation. Patient is currently on 3 L of oxygen at home at all times-he has a history of pulmonary fibrosis, he denies any fevers or chills, he denies any change in his sputum production to this examiner. Work-up in the emergency room included a chest x-ray which showed the presence of bilateral infiltrates, patient's white blood cell count was elevated, he was afebrile, and he required 6 L of oxygen to maintain his pulse ox above 90%. Patient's lactic acid was elevated at 3.1, creatinine was elevated at 1.42 and BUN was 45. Patient's rapid Covid test was negative. Patient's beta natruretic peptide was elevated. On examination he appeared in good health and spirits. Vital signs as documented. Skin warm and dry and without overt rashes. Neck without JVD, neck was supple, trachea midline, thyroid was normal. Lungs-harsh expiratory rhonchi were noted bilaterally, normal air movement was noted. Heart exam notable for regular rhythm with ectopy (PACs), normal sounds and absence of murmurs, rubs or gallops. Abdomen unremarkable and without evidence of organomegaly, masses, or abdominal aortic enlargement. Bowel sounds are present, abdomen is not distended. Extremities nonedematous, no cyanosis was noted, no clubbing was noted. Neuro: Cranial nerves II through XII are grossly intact, no focal motor deficits were noted, sensation to light touch and pinprick intact, motor exam 5/5 throughout. Psych: Patient is alert and oriented x3, he does not appear anxious or depressed, he does not appear agitated. Patient will be admitted to PCU for community-acquired pneumonia with sepsis and acute on chronic hypoxic respiratory failure, I have decided to place him on Unasyn for possible aspiration pneumonia, he will be seen by speech therapy, he will have aerosol treatments, and I have decided to place him on IV Lasix due to his elevated beta natruretic peptide. I have reviewed Elida Campos's history and physical including her medical assessment and plan of care and endorse it. Visit Charges Inpatient E&M: 03309 Init Hosp L3
--- NOTE | 2020-10-03 15:32 | NT.THERAPY_ITS ---
Nutrition Therapy Report - History Current diet / nutrition support order:: regular - Anthropometric Measurements Height:: 5 ft 10 in Weight:: 78.8 kg Body Mass Index (BMI):: 24.9 - Relevant Labs Relevant Labs:: WBC 14.0 K/mm3 (4.4-11.0) H 10/03/20 09:40 RBC 4.53 M/mm3 (4.6-6.2) L 10/03/20 09:40 MCV 99.8 fL (80-94) H 10/03/20 09:40 MCHC 30.8 g/dL (32-36) L 10/03/20 09:40 RDW Std Deviation 54.7 fl (35.1-43.9) H 10/03/20 09:40 RDW Coeff of James 14.8 % (11.6-14.6) H 10/03/20 09:40 Neut % (Auto) 82.2 % (47-70) H 10/03/20 09:40 Lymph % (Auto) 10.4 % (19-41) L 10/03/20 09:40 Absolute Neuts (auto) 11.5 X10^3/uL (2.0-7.7) H 10/03/20 09:40 PT 11.6 SECONDS (11.7-14.9) L 10/03/20 09:40 D-Dimer Quant (PE/DVT) 2.11 FEU/ug/m (0.27-0.49) H* 10/03/20 09:40 Carbon Dioxide 35.0 mmol/L (21.0-32.0) H 10/03/20 09:40 Anion Gap 4 (5-15) L 10/03/20 09:40 BUN 45 mg/dL (7-18) H 10/03/20 09:40 Creatinine 1.42 mg/dL (0.70-1.30) H 10/03/20 09:40 Est GFR (MDRD) Non-Af 50 mL/min (>60) L 10/03/20 09:40 BUN/Creatinine Ratio 31.7 RATIO (10-20) H 10/03/20 09:40 Glucose 224 mg/dL (74-106) H 10/03/20 09:40 Lactic Acid 3.1 mmol/L (0.4-1.9) H* 10/03/20 10:02 AST 12 U/L (15-37) L 10/03/20 09:40 Alkaline Phosphatase 127 U/L (45-117) H 10/03/20 09:40 Globulin 4.5 g/dL (2.2-4.2) H 10/03/20 09:40 Albumin/Globulin Ratio 0.7 RATIO (0.9-2.4) L 10/03/20 09:40 - Assessment Food / Nutrition-Related History:: 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 States he doesn't eat as much as I used to d/t a decline in appetite. ~75% of lunch consumed this date. States wt was 210# 6 months ago. CBW 173.7#-36.3#/17% wt loss x 6 months is significant for malnutrition. Pt feels wt has been more stable over past few weeks. Will drink ONS 4x/daily at home. Otherwise no specific diet. Denies chewing/swallowing difficulties. Hx of speech therapy per EMR. 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 - Nutrition Diagnosis Problem / Etiology / Signs & Symptoms (PES):: chronic, severe malnutrition r/t decreased appetite w/ advanced age, hx of dysphagia causing decreased energy intake as evidenced by unintentional wt loss of 36.3#/17% x 6 months, estimated PO intake meeting <75% of nutritional needs x 6 months. Evidence of Malnutrition Exists:: Yes Severe Protein Calorie Malnutrition:: Chronic Illness - Nutrition Intervention Nutrition Prescription:: [id number] calories/day (1.3xRMR). 68-78 g protein/day (1g/kg). 1950mL fluid/day (25mL/kg) - Food / Nutrient Delivery Interventions Summary of nutrition intervention:: Pt agreeable to Ensure, otherwise no questions at this time. Nutrition support ordered as / adjusted to:: continue regular diet; will add 120mL ONS w/ medpass. - MNT Monitoring Further MNT monitoring and evaluation required?: Yes MNT Follow-up in:: 3-5 days
[2020-10-03 16:07] LABS: Lactic Acid 3.1 mmol/L (0.4-1.9)
[2020-10-03 17:36] LABS: Bedside Glucose 211 mg/dL (70-110)
[2020-10-03] MEDS: Potassium Chloride Oral Tablet 20 MEQ PO (17:37)
[2020-10-03] MEDS: Insulin Lispro 100 UNIT/ML INSULN.PEN SC (17:37)
[2020-10-03] MEDS: Ipratropium/Albuterol Sulfate 3 ML AMPUL.NEB INHALATION (18:50)
[2020-10-03] MEDS: Heparin Injection (Vial) 5,000 UNIT/ML VIAL 5000 UNIT SC (22:56)
[2020-10-03] MEDS: Sertraline 50 MG Tablet 25 MG PO (22:56)
[2020-10-03 23:50] LABS: Bedside Glucose 117 mg/dL (70-110)
[2020-10-04] VITALS (20 sets, daily range): BP systolic 92–134; BP diastolic 53–71; PULSE 70–90; RESP 16–26; TEMP 36.5–36.9; O2SAT 84–92
[2020-10-04] MEDS: Ipratropium/Albuterol Sulfate 3 ML AMPUL.NEB INHALATION ×4 (00:24→20:37)
[2020-10-04] MEDS: Furosemide 20 MG/2 ML VIAL IV ×3 (06:15→20:54)
[2020-10-04 06:40] LABS: Absolute Lymphocyte Count 1.35 X10^3/uL (0.83-4.51); Absolute Neutrophil Count 9.9 X10^3/uL (2.0-7.7); Basophil# 0.02 X10^3/uL; Basophil% 0.2 % (0-1); Eosinophil# 0.08 X10^3/uL; Eosinophils% 0.7 % (0-5); Hematocrit 41.5 % (40-54); Lymphocyte # 1.35 X10^3/ul (0.83-4.51); Mean Corp Hgb Conc 31.3 g/dL (32-36); Mean Corpuscular Hgb 30.6 pg (27.0-32.0); Mean Corpuscular Volume 97.6 fL (80-94); Mean Platelet Vol. 9.4 fl (6.2-12.0); Monocyte# 0.92 X10^3/uL; Monocyte% 7.5 % (0-10); NRBC Flagged by Analyzer 0 % (0-5); Neutrophil # 9.86 X10^3/uL (2.7-7.7); Neutrophil % 80.2 % (47-70); Platelet Count 281 K/mm3 (150-450); RBC Distribution Width CV 14.7 % (11.6-14.6); RBC Distribution Width SD 53.1 fl (35.1-43.9); Red Blood Count 4.25 M/mm3 (4.6-6.2); White Blood Count 12.3 K/mm3 (4.4-11.0)
[2020-10-04 07:15] LABS: Bedside Glucose 120 mg/dL (70-110)
--- NOTE | 2020-10-04 07:35 | CON.PCM.CC_ITS ---
Assessment & Plan Assessment/Plan (1) Acute on chronic respiratory failure with hypoxemia: PLAN: RECOMMENDATIONS: 1. Wean supplemental oxygen to maintain saturations at or above 90%. 2. Obtain repeat echocardiogram to evaluate for worsening pulmonary hypertension. 3. Send autoimmune work-up. 4. Continue aggressive bronchopulmonary hygiene. 5. Check procalcitonin, strep and urine Legionella antigens. 6. Continue empiric antimicrobials. 7. Increase steroid regimen to IV Solu-Medrol 40 mg every 6 hours. IMPRESSIONS: 1. Acute on chronic hypoxemic respiratory failure The patient was initially referred to the emergency department over concerns for respiratory decompensation secondary to underlying dysrhythmia. However, the patient was found to be in normal sinus rhythm. CTA chest showed no evidence for PE, but did demonstrate significant bilateral ground glass and consolidative changes, predominantly in the lung bases bilaterally. There has been some concern in the past for underlying pulmonary fibrosis due to chronic aspiration. However, the patient's radiographic findings could also represent organizing pneumonia. At this time, we will plan to send an autoimmune work-up. The patient has already been initiated on antimicrobials. I am going to increase his steroids to Solu-Medrol 40 mg every 6 hours, as an entity like cryptogenic organizing pneumonia tends to be steroid responsive. In addition to the afore mentioned, given that the patient has a history of noncompliance with the use of supplemental oxygen, will obtain a surface echocardiogram to reevaluate for progressive pulmonary hypertension. 2. Unspecified interstitial lung disease Initially felt to be the consequence of recurrent aspiration leading to pulmonary fibrosis. However, the patient's CT scan findings could also represent organizing pneumonia. As noted above, will obtain autoimmune work-up. The patient will be transitioned to IV Solu-Medrol. He has already been initiated on antimicrobials, which will be continued. Although bronchoscopy with transbronchial biopsies is a consideration, the patient is not interested in pursuing an invasive work-up. 3. Chronic heart failure with preserved ejection fraction/pulmonary hypertension Continue current supportive measures with IV diuretic therapy as tolerated by hemodynamics and renal function. Repeat echocardiogram will be obtained to evaluate for worsening pulmonary hypertension. 4. Hypertension/diabetes mellitus/advanced age Complicates care, management, recovery and prognosis. Continue home medications as indicated. This note was generated with edenesation software. It may contain incorrect words, spelling, and punctuation that were not noted in checking the note before signing. HPI Consult Data Date of Consult: 10/04/20 HPI Narrative Reason for Consultation: Acute on chronic hypoxemic respiratory failure HPI Narrative: The patient is an 85-year-old male, with a history as outlined below, who presented to the emergency department on October 03 with shortness of breath and worsening hypoxemia. The patient had been seen by our pulmonary nurse practitioner earlier the same day and he was referred to the emergency department over concerns for a new onset dysrhythmia with associated shortness of breath and hypoxemia. The patient regularly follows with Dr. Britt due to a history of chronic pulmonary fibrosis, which has been suspected secondary to recurrent aspiration. A 6-minute walk test last completed in October 2019 revealed the need for 2 L/min of supplemental oxygen with exertion. However, the patient's use of supplemental oxygen has been inconsistent in the past. On presentation to the emergency department, the patient was noted to be afebrile and hemodynamically stable. He was nevertheless tachypneic and requiring 6 L/min to maintain appropriate oxygen saturations. Initial laborat ory evaluation revealed an elevated white blood cell count of 14,000. D-dimer was elevated to 2.1. Chemistry profile was notable for a bicarbonate of 35 and creatinine of 1.42. Lactate was elevated at 3.1. Initial chest x-ray revealed worsening basilar predominant chronic interstitial disease. EKG performed in the emergency department demonstrated normal sinus rhythm. A CTA chest was eventually obtained which failed to demonstrate evidence for pulmonary embolism. However, there was evidence of diffuse bilateral interstitial and ground glass consolidation, predominantly in the lung bases bilaterally. [facility] Medical History (Updated 10/04/20 @ 08:[address] Mark Pérez DO) Acute on chronic blood loss anemia Acute respiratory failure with hypoxia Community acquired pneumonia HTN (hypertension) Hypoxemia New onset atrial fibrillation Sepsis Septic shock Skin cancer Type 2 diabetes mellitus Upper GI bleed Home Medications amlodipine 10 mg PO DAILY 06/16/18 [History Last Taken 10/02/20] ipratropium bromide 2 spray NASAL BID PRN PRN 06/16/18 [History Last Taken 06/16/18] albuterol sulfate 1 - 2 puff INHALATION Q4H PRN PRN #1 inhaler 06/19/18 [Rx Last Taken Unknown] metformin 500 mg PO BIDCM #0 04/20/19 [Rx Last Taken 10/02/20] metoprolol succinate 50 mg PO DAILY #0 04/20/19 [Rx Last Taken 10/02/20] furosemide 40 mg PO DAILY PRN PRN 05/06/19 [History Last Taken Unknown] lisinopril 10 mg PO DAILY 05/06/19 [History Last Taken 10/02/20] PEP device #1 ea 04/04/20 [Rx Last Taken Unknown] prednisone 10 mg PO DAILY 10/03/20 [History Last Taken 10/02/20] sertraline 25 mg PO QHS 10/03/20 [History Last Taken 10/02/20] Allergy/AdvReac Type Severity Reaction Status Date / Time No Known Allergies Allergy Verified 10/03/20 09:40 Surgical History History of esophagogastroduodenoscopy (EGD) Social History Smoking Status: Former smoker alcohol intake: current details: Occasionally substance use type: does not use ROS Constitutional Constitutional: Reports fatigue; Denies chills, fever(s) or headache(s) Eyes Eyes: Denies blurry vision or change in vision ENT HEENT: Denies dizziness or headache(s) Cardiovascular Cardiovascular: Denies chest pain Respiratory/Chest Respiratory/Chest: Reports cough and shortness of breath with exertion; Denies chest tightness Gastrointestinal Gastrointestinal: Denies abdominal pain or diarrhea Genitourinary Genitourinary: Denies difficulty urinating or dysuria Musculoskeletal Musculoskeletal: Denies arthralgias Integumentary Integumentary: Denies lesions, rash or skin ulcer Neurologic Neurologic: Denies abnormal gait, abnormal speech or confusion Psychiatric Psychiatric: Denies anxiety Endocrine Endocrinology: Reports fatigue; Denies polydipsia or polyuria Hematologic/Lymphatic Hematologic/Lymphatic: Denies easy bleeding or easy bruising Physical Exam Const alert, oriented x3 and no apparent distress General Appearance: cooperative HEENT normocephalic, head/scalp atraumatic and moist oral mucous membranes Eyes PERRL, EOMs intact bilaterally and conjunctivae normal Neck supple General: trachea midline Resp normal respiratory effort and No no use of accessory muscles Resp Narrative: There is coarse bilateral rhonchi along with basilar predominant rales and diffuse expiratory wheeze. Effort and Inspection: able to speak in complete sentences Cardio regular rate and regular rhythm GI normal to inspection, nondistended, normoactive bowel sounds Extremity no clubbing, cyanosis or edema Skin no rashes or lesions noted Neuro oriented x3, CN's II-XII intact bilaterally, moves all extremities and no focal motor deficits Psych cooperative and affect normal Lab / Micro Data Result Diagrams: 10/04/20 06:05 10/04/20 08:45 Labs: Laboratory Results - last 24 hr 10/03/20 10/03/20 10/03/20 09:40 09:40 09:40 WBC 14.0 H RBC 4.53 L Hgb 13.9 Hct 45.2 MCV 99.8 H MCH 30.7 MCHC 30.8 L RDW Std Deviation 54.7 H RDW Coeff of James 14.8 H Plt Count 288 MPV 9.4 Immature Gran % (Auto) 0.400 Neut % (Auto) 82.2 H Lymph % (Auto) 10.4 L [place] % (Auto) 6.4 Eos % (Auto) 0.4 Baso % (Auto) 0.2 Absolute Neuts (auto) 11.5 H Absolute Lymphs (auto) 1.46 Nucleated RBC % 0 PT 11.6 L INR 0.9 APTT 24.6 D-Dimer Quant (PE/DVT) 2.11 H* Sodium 139 Potassium 4.3 Chloride 100 Carbon Dioxide 35.0 H Anion Gap 4 L BUN 45 H Creatinine 1.42 H Estim Creat Clear Calc 38.56 Est GFR (MDRD) Af Amer 61 Est GFR (MDRD) Non-Af 50 L BUN/Creatinine Ratio 31.7 H Glucose 224 H Lactic Acid Calcium 9.6 Total Bilirubin 0.20 AST 12 L ALT 18 Alkaline Phosphatase 127 H Total Protein 7.7 Albumin 3.2 Globulin 4.5 H Albumin/Globulin Ratio 0.7 L Urine Color Urine Clarity Urine pH Ur Specific [place] Urine Protein Urine Glucose (UA) Urine Ketones Urine Occult Blood Urine Nitrite Urine Bilirubin Urine Urobilinogen Ur Leukocyte Esterase Urine RBC Urine WBC Ur Squamous Epith Cells Urine Bacteria Urine Mucus POC Glucose 10/03/20 10/03/20 10/03/20 10:02 11:20 15:25 WBC RBC Hgb Hct MCV MCH MCHC RDW Std Deviation RDW Coeff of James Plt Count MPV Immature Gran % (Auto) Neut % (Auto) Lymph % (Auto) [place] % (Auto) Eos % (Auto) Baso % (Auto) Absolute Neuts (auto) Absolute Lymphs (auto) Nucleated RBC % PT INR APTT D-Dimer Quant (PE/DVT) Sodium Potassium Chloride Carbon Dioxide Anion Gap BUN Creatinine Estim Creat Clear Calc Est GFR (MDRD) Af Amer Est GFR (MDRD) Non-Af BUN/Creatinine Ratio Glucose Lactic Acid 3.1 H* 3.1 H* Calcium Total Bilirubin AST ALT Alkaline Phosphatase Total Protein Albumin Globulin Albumin/Globulin Ratio Urine Color Yellow Urine Clarity Clear Urine pH 7.0 Ur Specific [place] 1.010 Urine Protein 15 H Urine Glucose (UA) Normal Urine Ketones Negative Urine Occult Blood Negative Urine Nitrite Negative Urine Bilirubin Negative Urine Urobilinogen Normal Ur Leukocyte Esterase Negative Urine RBC 0 SEEN Urine WBC 0 SEEN Ur Squamous Epith Cells 0-5 SEEN Urine Bacteria 0 SEEN Urine Mucus 0 SEEN POC Glucose 10/03/20 10/03/20 10/04/20 16:48 22:55 06:05 WBC 12.3 H RBC 4.25 L Hgb 13.0 Hct 41.5 MCV 97.6 H MCH 30.6 MCHC 31.3 L RDW Std Deviation 53.1 H RDW Coeff of James 14.7 H Plt Count 281 MPV 9.4 Immature Gran % (Auto) 0.400 Neut % (Auto) 80.2 H Lymph % (Auto) 11.0 L [place] % (Auto) 7.5 Eos % (Auto) 0.7 Baso % (Auto) 0.2 Absolute Neuts (auto) 9.9 H Absolute Lymphs (auto) 1.35 Nucleated RBC % 0 PT INR APTT D-Dimer Quant (PE/DVT) Sodium Potassium Chloride Carbon Dioxide Anion Gap BUN Creatinine Estim Creat Clear Calc Est GFR (MDRD) Af Amer Est GFR (MDRD) Non-Af BUN/Creatinine Ratio Glucose Lactic Acid Calcium Total Bilirubin AST ALT Alkaline Phosphatase Total Protein Albumin Globulin Albumin/Globulin Ratio Urine Color Urine Clarity Urine pH Ur Specific [place] Urine Protein Urine Glucose (UA) Urine Ketones Urine Occult Blood Urine Nitrite Urine Bilirubin Urine Urobilinogen Ur Leukocyte Esterase Urine RBC Urine WBC Ur Squamous Epith Cells Urine Bacteria Urine Mucus POC Glucose 211 H 117 H 10/04/20 06:20 WBC RBC Hgb Hct MCV MCH MCHC RDW Std Deviation RDW Coeff of James Plt Count MPV Immature Gran % (Auto) Neut % (Auto) Lymph % (Auto) [place] % (Auto) Eos % (Auto) Baso % (Auto) Absolute Neuts (auto) Absolute Lymphs (auto) Nucleated RBC % PT INR APTT D-Dimer Quant (PE/DVT) Sodium Potassium Chloride Carbon Dioxide Anion Gap BUN Creatinine Estim Creat Clear Calc Est GFR (MDRD) Af Amer Est GFR (MDRD) Non-Af BUN/Creatinine Ratio Glucose Lactic Acid Calcium Total Bilirubin AST ALT Alkaline Phosphatase Total Protein Albumin Globulin Albumin/Globulin Ratio Urine Color Urine Clarity Urine pH Ur Specific [place] Urine Protein Urine Glucose (UA) Urine Ketones Urine Occult Blood Urine Nitrite Urine Bilirubin Urine Urobilinogen Ur Leukocyte Esterase Urine RBC Urine WBC Ur Squamous Epith Cells Urine Bacteria Urine Mucus POC Glucose 120 H Micro: Microbiology 10/03/20 10:54 SARS-CoV-2 Antigen (Rapid) - Final Mucosa - Nasopharyngeal Radiology Impression Chest CTA 10/03/20 10:20 IMPRESSION: No demonstrated PE, or thoracic aortic aneurysm or dissection Diffuse interstitial and airspace opacifications in both lung schmid, particularly the lung bases, more prominent in the left lung than the right. This pattern of opacification is most consistent with Covid. No demonstrated effusion Calcified coronary vessels Degenerative bony changes Electronically Signed: Meliton Robbins MD at 11:03 EDT , Service support , Chest X-Ray 10/03/20 10:42 IMPRESSION: Worsening interstitial and airspace opacifications in both lung schmid with stable left pleural effusion. This pattern of opacification is most consistent with Covid. Electronically Signed: Meliton Robbins MD at 10:59 EDT , Service support , Charges/Coding Visit Charges Inpatient E&M: 71477 Init Hosp L3
--- NOTE | 2020-10-04 08:04 | CPS ---
When I went into pt room he was breathing in the high 20's. I checked his 02 and pt was 82-84% went to RN to see it this was normal or if they are having a problem with his o2. When I talked to RN she stated pt was 92% when she checked on him. I placed pt on 12L 55%. RN came up to me after about 10 mins. Pt stated he doesnt like the mask and he is normally low. RN said she was calling Doctor and keep me posted.
[2020-10-04] MEDS: Lisinopril 10 MG Tablet PO (08:35)
[2020-10-04] MEDS: Potassium Chloride Oral Tablet 20 MEQ PO ×2 (08:35→16:38)
[2020-10-04] MEDS: amLODIPine 10 MG Tablet PO (08:35)
[2020-10-04] MEDS: Heparin Injection (Vial) 5,000 UNIT/ML VIAL 5000 UNIT SC ×2 (08:36→20:54)
[2020-10-04] MEDS: Fluticasone 0.05% 1 SPRAY NASAL.SRY 2 SPRAY NASAL (08:36)
[2020-10-04] MEDS: Metoprolol(XL)Succ 50 MG Tablet PO (08:37)
[2020-10-04] MEDS: 0.9% Saline Lock 10 ML Syringe IV ×5 (08:48→20:55)
[2020-10-04 09:34] LABS: Anion Gap 6 (5-15); BUN 34 mg/dL (7-18); BUN/Creat Ratio 28.8 RATIO (10-20); Chloride 98 mmol/L (98-107); Creatinine, Serum 1.18 mg/dL (0.70-1.30); EST Glomerular Filtration Rate 62 mL/min (>60); Est Glom Filt Rate - Afr Amer 75 mL/min (>60); Glucose 120 mg/dL (74-106); Potassium 5.1 mmol/L (3.5-5.1); Sodium Level 139 mmol/L (136-145)
--- NOTE | 2020-10-04 09:50 | CASEMGMT ---
LEXY ANDRE Assessment: Face to Face with pt for initial transition planning/care coordination assessment. RN JES introduced self and role at [facility], pt voices understanding and consents to assessment. Pt is A/O x4 and answers all questions appropriately at this time. Pt lying in bed with O2 on and gets short of breath while answering questions. Care providers, pharmacy, and demographics verified/updated. Admitting Dx: severe sepsis, PNA, hypoxic resp failure PCP: Tanner Specialists: maddie Britt Preferred Pharmacy: [facility] Insurance: [employer] [facility] Prescription Benefit: yes LW/HPOA: Pt denies having a LW/DPOA. States he has discussed his wishes with his . LNOK: Namita Coffey, ; Mich Coffey, son Living Arrangements: Pt lives with in a two story house with 2 steps to enter. Pt states he seldom goes upstairs. Pt states he is I in ADL's but he sponge bathes only. Denies concerns at home. Transportation: Pt is able to drive but states lately he allows his to drive. Denies concerns with transportation. DME/HHC/SNF: Pt states he has O2 through [facility] and uses 4L [place] cont. He also has a walker and cane. Pt states he has had HHC through [facility] and denies SNF stay. Pt is agreeable to have HHC through [facility] again for SN. He denied need for list of local in network companies as he has had [facility] in the past and would like them again. Will follow for therapy needs. Pt is agreeable to therapy if recommended as well. Pt states no concerns with going home at time of dc. Pt states no further concerns/needs. CM to follow. Advised pt to ask CM if any further question/concerns/needs arise, voices understanding. TC to Alla cooper at [facility], she states able to accept pt. TC to [facility] and spoke with Sarah, she verified that pt is 2L NC continuous. Pt Goal: Home Plan: Home with [facility] SN and possible therapy, follow for increased O2 needs.
[2020-10-04 10:32] LABS: Procalcitonin 0.27 ng/mL (0.00-0.09)
[2020-10-04] MEDS: Insulin Lispro 100 UNIT/ML INSULN.PEN SC ×3 (11:07→20:54)
[2020-10-04 11:40] LABS: Bedside Glucose 233 mg/dL (70-110)
[2020-10-04 11:43] LABS: BNP,B-Type NATRIURETIC PEPTIDE 92.5 pg/mL (0-100)
--- NOTE | 2020-10-04 14:35 | PCM.PN.HOSP ---
Documented by User: Elida Campos SPRAY DRIER, SPRAY DRIER-C 10/04/20 14:43 Subjective Subjective Patient seen and examined. Reports worsening shortness of breath. Denies fever, chills. Reports intermittent nonproductive cough. Objective Data Objective Data Vital Signs: Vital Signs Temp Pulse Resp BP Pulse Ox 98.3 F 90 20 H 92/67 89 10/04/20 12:55 10/04/20 13:22 10/04/20 13:22 10/04/20 12:55 10/04/20 13:22 Oxygen Flow Rate (L/min) 6 Oxygen Delivery Method Nasal Cannula Weight: 173 lb 11.588 oz Body Mass Index (BMI) 24.9 Intake & Output: Intake and Output for Last 24 Hours 10/02/20 10/03/20 10/04/20 23:59 23:59 23:59 Intake Total 1517 / 1517 736 / 736 Output Total 1900 / 1900 1325 / 1325 Balance -383 / -383 -589 / -589 Lab / Micro Data Result Diagrams: 10/04/20 06:05 10/04/20 08:45 Labs: Laboratory Results - last 24 hr 10/03/20 10/03/20 10/03/20 15:25 16:48 22:55 WBC RBC Hgb Hct MCV MCH MCHC RDW Std Deviation RDW Coeff of James Plt Count MPV Immature Gran % (Auto) Neut % (Auto) Lymph % (Auto) [place] % (Auto) Eos % (Auto) Baso % (Auto) Absolute Neuts (auto) Absolute Lymphs (auto) Nucleated RBC % Sodium Potassium Chloride Carbon Dioxide Anion Gap BUN Creatinine Estim Creat Clear Calc Est GFR (MDRD) Af Amer Est GFR (MDRD) Non-Af BUN/Creatinine Ratio Glucose Lactic Acid 3.1 H* Calcium B-Natriuretic Peptide Procalcitonin Rheumatoid Factor POC Glucose 211 H 117 H 10/04/20 10/04/20 10/04/20 06:05 06:20 08:45 WBC 12.3 H RBC 4.25 L Hgb 13.0 Hct 41.5 MCV 97.6 H MCH 30.6 MCHC 31.3 L RDW Std Deviation 53.1 H RDW Coeff of James 14.7 H Plt Count 281 MPV 9.4 Immature Gran % (Auto) 0.400 Neut % (Auto) 80.2 H Lymph % (Auto) 11.0 L [place] % (Auto) 7.5 Eos % (Auto) 0.7 Baso % (Auto) 0.2 Absolute Neuts (auto) 9.9 H Absolute Lymphs (auto) 1.35 Nucleated RBC % 0 Sodium 139 Potassium 5.1 Chloride 98 Carbon Dioxide 35.0 H Anion Gap 6 BUN 34 H Creatinine 1.18 Estim Creat Clear Calc 46.40 Est GFR (MDRD) Af Amer 75 Est GFR (MDRD) Non-Af 62 BUN/Creatinine Ratio 28.8 H Glucose 120 H Lactic Acid Calcium 9.0 B-Natriuretic Peptide Procalcitonin Rheumatoid Factor POC Glucose 120 H 10/04/20 10/04/20 10/04/20 08:45 08:45 08:45 WBC RBC Hgb Hct MCV MCH MCHC RDW Std Deviation RDW Coeff of James Plt Count MPV Immature Gran % (Auto) Neut % (Auto) Lymph % (Auto) [place] % (Auto) Eos % (Auto) Baso % (Auto) Absolute Neuts (auto) Absolute Lymphs (auto) Nucleated RBC % Sodium Potassium Chloride Carbon Dioxide Anion Gap BUN Creatinine Estim Creat Clear Calc Est GFR (MDRD) Af Amer Est GFR (MDRD) Non-Af BUN/Creatinine Ratio Glucose Lactic Acid Calcium B-Natriuretic Peptide 92.5 Procalcitonin 0.27 H Rheumatoid Factor 33.0 H POC Glucose 10/04/20 11:05 WBC RBC Hgb Hct MCV MCH MCHC RDW Std Deviation RDW Coeff of James Plt Count MPV Immature Gran % (Auto) Neut % (Auto) Lymph % (Auto) [place] % (Auto) Eos % (Auto) Baso % (Auto) Absolute Neuts (auto) Absolute Lymphs (auto) Nucleated RBC % Sodium Potassium Chloride Carbon Dioxide Anion Gap BUN Creatinine Estim Creat Clear Calc Est GFR (MDRD) Af Amer Est GFR (MDRD) Non-Af BUN/Creatinine Ratio Glucose Lactic Acid Calcium B-Natriuretic Peptide Procalcitonin Rheumatoid Factor POC Glucose 233 H Micro: Microbiology 10/03/20 10:54 Mucosa - Nasopharyngeal SARS-CoV-2 Antigen (Rapid) - Final Radiography Diagnostic Testing: Radiology Impression Echocardiogram 10/03/20 12:31 Interpretation Summary The estimated ejection fraction is 60 %. Stage 2 diastolic dysfunction. Mild (1+) mitral valve insufficiency. Pulmonary artery systolic pressure is 70 mmHg. Ordering Physician: Yaw Lyn Referring Physician: Yair Hart M.D. Performed By: Tammie Enriquez RDCS Physical Exam Const alert, oriented x3 and no apparent distress Orientation / Consciousness: awake, oriented to person, oriented to place and oriented to time Nutritional Appearance: cachectic HEENT normocephalic and moist oral mucous membranes Eyes PERRL, EOMs intact bilaterally and conjunctivae normal Neck no lymphadenopathy Resp Effort and Inspection: tachypneic Auscultation: rhonchi Cardio regular rate, regular rhythm and no murmurs Peripheral Pulses: pulses 2+ throughout GI normal to inspection, nondistended, normoactive bowel sounds, non-tender and non-distended Extremity normal to inspection Skin no rashes or lesions noted Lesions: no lesions Rashes: no rashes Trauma: no lacerations or abrasions Neuro CN's II-XII intact bilaterally, no focal motor deficits, no sensory deficits noted and deep tendon reflexes 2+ bilaterally Psych mental status grossly normal and affect normal Assessment & Plan Assessment/Plan (1) Acute on chronic respiratory failure with hypoxemia: PLAN: 1. Acute on chronic hypoxic respiratory failure secondary to community-acquired pneumonia, acute on chronic heart failure with preserved ejection fraction, complicated by underlying unspecified interstitial lung disease-CTA without PE. Continue IV Unasyn and IV azithromycin. Albuterol and DuoNeb aerosols. Continue supplement oxygen to maintain O2 at or above 90%. Speech therapy consult to assess for aspiration risk. IV Solu-Medrol per pulmonary recommendations. Autoimmune work-up ordered. Echocardiogram demonstrates an EF of 60%, stage II diastolic dysfunction, mild mitral valve insufficiency, pulmonary artery systolic pressure 70 mmHg. IV Lasix. Strict I&O. Daily weight. 2. Sepsis secondary to community-acquired pneumonia-treatment per above. 3. New onset atrial fibrillation-converted to sinus rhythm. Echocardiogram as noted above. Continue home metoprolol regimen. 4. Hypertension-stable, on amlodipine, lisinopril, metoprolol. 5. Type 2 diabetes mellitus-hold metformin. Accu-Cheks with sliding scale insulin. 6. Depression-on sertraline. DVT prophylaxis- heparin sc This patient was seen by LUCI Garza under the supervision of Dr. Lyn. Documented by User: Dr. Yaw Lyn, DO 10/04/20 18:52 Objective Data Lab / Micro Data Result Diagrams: 10/04/20 06:05 10/04/20 08:45 Addendum Addendum: Patient was seen and examined today independently of Elida Campos, he has required increasing amounts of oxygen since his admission yesterday, at the time of my examination, patient was on 6 L of oxygen. I had pulmonary medicine see the patient in consultation today. On examination he appeared in no distress at rest. Vital signs as documented. Skin warm and dry and without overt rashes. Neck without JVD, neck was supple, trachea midline, thyroid was normal. Lungs-there was inspiratory rales and some scattered expiratory rhonchi noted bilaterally, normal air movement was noted. Heart exam notable for regular rhythm, normal sounds and absence of murmurs, rubs or gallops. Abdomen unremarkable and without evidence of organomegaly, masses, or abdominal aortic enlargement. Bowel sounds are present, abdomen is not distended. Extremities nonedematous, no cyanosis was noted, no clubbing was noted. Neuro: Cranial nerves II through XII are grossly intact, no focal motor deficits were noted, sensation to light touch and pinprick intact, motor exam 5/5 throughout. Psych: Patient is alert and oriented x3, he does not appear anxious or depressed, he does not appear agitated. I have reviewed Elida Campos's progress note including her medical assessment and plan of care and endorse it. Visit Charges Inpatient E&M: 80989 Subs Hosp L2
[2020-10-04 17:21] LABS: Bedside Glucose 341 mg/dL (70-110)
[2020-10-04] MEDS: Sertraline 50 MG Tablet 25 MG PO (20:54)
[2020-10-04 21:50] LABS: Bedside Glucose 297 mg/dL (70-110)
[2020-10-05] VITALS (15 sets, daily range): BP systolic 101–133; BP diastolic 49–77; PULSE 70–96; RESP 16–24; TEMP 36.3–36.9; O2SAT 78–97
[2020-10-05] MEDS: Furosemide 20 MG/2 ML VIAL IV ×3 (06:14→21:09)
[2020-10-05 06:39] LABS: Absolute Lymphocyte Count 0.83 X10^3/uL (0.83-4.51); Absolute Neutrophil Count 12.5 X10^3/uL (2.0-7.7); Basophil# 0.01 X10^3/uL; Basophil% 0.1 % (0-1); Hematocrit 37.9 % (40-54); Lymphocyte # 0.83 X10^3/ul (0.83-4.51); Lymphocyte % 6.1 % (19-41); Mean Corp Hgb Conc 31.7 g/dL (32-36); Mean Corpuscular Hgb 30.8 pg (27.0-32.0); Mean Corpuscular Volume 97.4 fL (80-94); Mean Platelet Vol. 9.7 fl (6.2-12.0); Monocyte# 0.15 X10^3/uL; Monocyte% 1.1 % (0-10); NRBC Flagged by Analyzer 0 % (0-5); Neutrophil # 12.51 X10^3/uL (2.7-7.7); Neutrophil % 92.2 % (47-70); Platelet Count 289 K/mm3 (150-450); RBC Distribution Width CV 14.7 % (11.6-14.6); RBC Distribution Width SD 52.7 fl (35.1-43.9); Red Blood Count 3.89 M/mm3 (4.6-6.2); White Blood Count 13.6 K/mm3 (4.4-11.0)
[2020-10-05] MEDS: Insulin Lispro 100 UNIT/ML INSULN.PEN SC ×4 (06:43→21:09)
[2020-10-05 06:50] LABS: Bedside Glucose 195 mg/dL (70-110)
[2020-10-05] MEDS: Ipratropium/Albuterol Sulfate 3 ML AMPUL.NEB INHALATION ×3 (06:59→18:32)
[2020-10-05 07:03] LABS: Anion Gap 6 (5-15); BUN 34 mg/dL (7-18); BUN/Creat Ratio 27.4 RATIO (10-20); Calcium,Total 8.5 mg/dL (8.5-10.1); Chloride 99 mmol/L (98-107); Creatinine, Serum 1.24 mg/dL (0.70-1.30); EST Glomerular Filtration Rate 59 mL/min (>60); Est Glom Filt Rate - Afr Amer 71 mL/min (>60); Estimated Creatinine Clearance 44.15 ml/min; Glucose 199 mg/dL (74-106); Potassium 4.6 mmol/L (3.5-5.1); Sodium Level 139 mmol/L (136-145)
--- NOTE | 2020-10-05 08:02 | PN.CC_ITS ---
Assessment & Plan Assessment/Plan (1) Acute on chronic respiratory failure with hypoxemia: PLAN: RECOMMENDATIONS: 1. Wean supplemental oxygen to maintain saturations at or above 90%. 2. Encourage compliance with supplemental oxygen 3. Await autoimmune work-up. 4. Continue aggressive bronchopulmonary hygiene. 5. Anticipate 5 to 7 days of empiric antibiotics 6. Continue Solu-Medrol for now 7. Diuresis as tolerated IMPRESSIONS: 1. Acute on chronic hypoxemic respiratory failure The patient was initially referred to the emergency department over concerns for respiratory decompensation secondary to underlying dysrhythmia. However, the patient was found to be in normal sinus rhythm. CTA chest showed no evidence for PE, but did demonstrate significant bilateral ground glass and consolidative changes, predominantly in the lung bases bilaterally. There has been some concern in the past for underlying pulmonary fibrosis due to chronic aspiration. However, the patient's radiographic findings could also represent organizing pneumonia. At this time, we will plan to send an autoimmune work-up. The patient should be continued on empiric antimicrobials to complete a 5 to 7- day course. Patient on elevated steroids, as an entity like cryptogenic organizing pneumonia tends to be steroid responsive. In addition to the aforementioned, given that the patient has a history of noncompliance with the use of supplemental oxygen. Echocardiogram does show significant pulmonary hypertension 2. Unspecified interstitial lung disease Initially felt to be the consequence of recurrent aspiration leading to pulmonary fibrosis. However, the patient's CT scan findings could also represen t organizing pneumonia. As noted above, will await autoimmune work-up. The patient will be transitioned to IV Solu-Medrol. He has already been initiated on antimicrobials, which will be continued. Although bronchoscopy with transbronchial biopsies is a consideration, the patient is not interested in pursuing an invasive work-up. 3. Chronic heart failure with preserved ejection fraction/pulmonary hypertension Continue current supportive measures with IV diuretic therapy as tolerated by hemodynamics and renal function. Repeat echocardiogram will be obtained to evaluate for worsening pulmonary hypertension. No patient will benefit by getting diuretics as tolerated. 4. Hypertension/diabetes mellitus/advanced age Complicates care, management, recovery and prognosis. Continue home medications as indicated. This note was generated with [employer] software. It may contain incorrect words, spelling, and punctuation that were not noted in checking the note before signing. Subjective Subjective Patient did okay overnight. Patient feels subjectively improved compared to previous. Patient is still having coughing with exertion and requiring 6 L nasal cannula. Nursing did report improved saturations overnight. Patient reports his home concentrator can only go up to 5 L nasal cannula. Objective Data Objective Data Vital Signs: Vital Signs Temp Pulse Resp BP Pulse Ox 36.3 C L 87 16 133/77 H 97 10/05/20 04:00 10/05/20 07:33 10/05/20 04:00 10/05/20 04:00 10/05/20 04:00 Oxygen Flow Rate (L/min) 6 Oxygen Delivery Method Nasal Cannula Weight: 78.8 kg Body Mass Index (BMI) 24.9 Intake & Output: Intake and Output for Last 24 Hours 10/03/20 10/04/20 10/05/20 23:59 23:59 23:59 Intake Total 1517 / 1517 1148 / 1388 472 / 472 Output Total 1900 / 1900 1325 / 1625 620 / 620 Balance -383 / -383 -177 / -237 -148 / -148 Lab / Micro Data Result Diagrams: 10/05/20 05:30 10/05/20 05:30 Labs: Laboratory Results - last 24 hr 10/04/20 10/04/20 10/04/20 08:45 08:45 08:45 WBC RBC Hgb Hct MCV MCH MCHC RDW Std Deviation RDW Coeff of James Plt Count MPV Immature Gran % (Auto) Neut % (Auto) Lymph % (Auto) [place] % (Auto) Eos % (Auto) Baso % (Auto) Absolute Neuts (auto) Absolute Lymphs (auto) Nucleated RBC % Sodium 139 Potassium 5.1 Chloride 98 Carbon Dioxide 35.0 H Anion Gap 6 BUN 34 H Creatinine 1.18 Estim Creat Clear Calc 46.40 Est GFR (MDRD) Af Amer 75 Est GFR (MDRD) Non-Af 62 BUN/Creatinine Ratio 28.8 H Glucose 120 H Calcium 9.0 B-Natriuretic Peptide 92.5 Procalcitonin Rheumatoid Factor 33.0 H POC Glucose 10/04/20 10/04/20 10/04/20 08:45 11:05 16:36 WBC RBC Hgb Hct MCV MCH MCHC RDW Std Deviation RDW Coeff of James Plt Count MPV Immature Gran % (Auto) Neut % (Auto) Lymph % (Auto) [place] % (Auto) Eos % (Auto) Baso % (Auto) Absolute Neuts (auto) Absolute Lymphs (auto) Nucleated RBC % Sodium Potassium Chloride Carbon Dioxide Anion Gap BUN Creatinine Estim Creat Clear Calc Est GFR (MDRD) Af Amer Est GFR (MDRD) Non-Af BUN/Creatinine Ratio Glucose Calcium B-Natriuretic Peptide Procalcitonin 0.27 H Rheumatoid Factor POC Glucose 233 H 341 H 10/04/20 10/05/20 10/05/20 20:53 05:30 05:30 WBC 13.6 H RBC 3.89 L Hgb 12.0 L Hct 37.9 L MCV 97.4 H MCH 30.8 MCHC 31.7 L RDW Std Deviation 52.7 H RDW Coeff of James 14.7 H Plt Count 289 MPV 9.7 Immature Gran % (Auto) 0.500 Neut % (Auto) 92.2 H Lymph % (Auto) 6.1 L [place] % (Auto) 1.1 Eos % (Auto) 0.0 Baso % (Auto) 0.1 Absolute Neuts (auto) 12.5 H Absolute Lymphs (auto) 0.83 Nucleated RBC % 0 Sodium 139 Potassium 4.6 Chloride 99 Carbon Dioxide 34.0 H Anion Gap 6 BUN 34 H Creatinine 1.24 Estim Creat Clear Calc 44.15 Est GFR (MDRD) Af Amer 71 Est GFR (MDRD) Non-Af 59 L BUN/Creatinine Ratio 27.4 H Glucose 199 H Calcium 8.5 B-Natriuretic Peptide Procalcitonin Rheumatoid Factor POC Glucose 297 H 10/05/20 06:41 WBC RBC Hgb Hct MCV MCH MCHC RDW Std Deviation RDW Coeff of James Plt Count MPV Immature Gran % (Auto) Neut % (Auto) Lymph % (Auto) [place] % (Auto) Eos % (Auto) Baso % (Auto) Absolute Neuts (auto) Absolute Lymphs (auto) Nucleated RBC % Sodium Potassium Chloride Carbon Dioxide Anion Gap BUN Creatinine Estim Creat Clear Calc Est GFR (MDRD) Af Amer Est GFR (MDRD) Non-Af BUN/Creatinine Ratio Glucose Calcium B-Natriuretic Peptide Procalcitonin Rheumatoid Factor POC Glucose 195 H Micro: Microbiology 10/04/20 23:00 Urine, Random Legionella Antigen - Final 10/04/20 23:00 Urine, Random Streptococcus pneumoniae Antigen (M - Final 10/03/20 10:54 Mucosa - Nasopharyngeal SARS-CoV-2 Antigen (Rapid) - Final Radiography Diagnostic Testing: Radiology Impression Echocardiogram 10/03/20 12:31 Interpretation Summary The estimated ejection fraction is 60 %. Stage 2 diastolic dysfunction. Mild (1+) mitral valve insufficiency. Pulmonary artery systolic pressure is 70 mmHg. Ordering Physician: Yaw Lyn Referring Physician: Yair Hart M.D. Performed By: Tammie Enriquez RDCS Physical Exam Const alert, oriented x3 and no apparent distress General Appearance: cooperative HEENT normocephalic, head/scalp atraumatic and moist oral mucous membranes Eyes PERRL, EOMs intact bilaterally and conjunctivae normal Neck supple General: trachea midline Resp normal respiratory effort and No no use of accessory muscles Resp Narrative: There is basilar predominant rales and minimal diffuse expiratory wheeze. Effort and Inspection: able to speak in complete sentences Cardio regular rate and regular rhythm GI normal to inspection, nondistended, normoactive bowel sounds Extremity no clubbing, cyanosis or edema Skin no rashes or lesions noted Neuro oriented x3, CN's II-XII intact bilaterally, moves all extremities and no focal motor deficits Psych cooperative and affect normal Charges/Coding Visit Charges Inpatient E&M: 78819 Subs Hosp L3
[2020-10-05] MEDS: Heparin Injection (Vial) 5,000 UNIT/ML VIAL 5000 UNIT SC ×2 (09:16→21:09)
[2020-10-05] MEDS: Fluticasone 0.05% 1 SPRAY NASAL.SRY 2 SPRAY NASAL (09:16)
[2020-10-05] MEDS: Potassium Chloride Oral Tablet 20 MEQ PO ×2 (09:17→16:53)
[2020-10-05] MEDS: Metoprolol(XL)Succ 50 MG Tablet PO (09:17)
[2020-10-05] MEDS: Lisinopril 10 MG Tablet PO (09:17)
[2020-10-05] MEDS: amLODIPine 10 MG Tablet PO (09:17)
--- NOTE | 2020-10-05 12:30 | PCM.PN.HOSP ---
Documented by User: Elida Campos NP, [employer] 10/05/20 12:33 Subjective Subjective Patient seen and examined. Reports improvement in breathing overnight. Continues to have nonproductive cough. Remains on 6 L nasal cannula. Denies fever, chills. Denies new symptoms or complaints. Objective Data Objective Data Vital Signs: Vital Signs Temp Pulse Resp BP Pulse Ox 97.6 F L 78 18 132/70 H 95 10/05/20 09:10 10/05/20 09:17 10/05/20 09:10 10/05/20 09:17 10/05/20 09:10 Oxygen Flow Rate (L/min) 6 Oxygen Delivery Method Nasal Cannula Weight: 173 lb 11.588 oz Body Mass Index (BMI) 24.9 Intake & Output: Intake and Output for Last 24 Hours 10/03/20 10/04/20 10/05/20 23:59 23:59 23:59 Intake Total 1517 / 1517 1148 / 1388 472 / 472 Output Total 1900 / 1900 1325 / 1625 620 / 620 Balance -383 / -383 -177 / -237 -148 / -148 Lab / Micro Data Result Diagrams: 10/05/20 05:30 10/05/20 05:30 Labs: Laboratory Results - last 24 hr 10/04/20 10/04/20 10/05/20 16:36 20:53 05:30 WBC 13.6 H RBC 3.89 L Hgb 12.0 L Hct 37.9 L MCV 97.4 H MCH 30.8 MCHC 31.7 L RDW Std Deviation 52.7 H RDW Coeff of James 14.7 H Plt Count 289 MPV 9.7 Immature Gran % (Auto) 0.500 Neut % (Auto) 92.2 H Lymph % (Auto) 6.1 L [place] % (Auto) 1.1 Eos % (Auto) 0.0 Baso % (Auto) 0.1 Absolute Neuts (auto) 12.5 H Absolute Lymphs (auto) 0.83 Nucleated RBC % 0 Sodium Potassium Chloride Carbon Dioxide Anion Gap BUN Creatinine Estim Creat Clear Calc Est GFR (MDRD) Af Amer Est GFR (MDRD) Non-Af BUN/Creatinine Ratio Glucose Calcium POC Glucose 341 H 297 H 10/05/20 10/05/20 05:30 06:41 WBC RBC Hgb Hct MCV MCH MCHC RDW Std Deviation RDW Coeff of James Plt Count MPV Immature Gran % (Auto) Neut % (Auto) Lymph % (Auto) [place] % (Auto) Eos % (Auto) Baso % (Auto) Absolute Neuts (auto) Absolute Lymphs (auto) Nucleated RBC % Sodium 139 Potassium 4.6 Chloride 99 Carbon Dioxide 34.0 H Anion Gap 6 BUN 34 H Creatinine 1.24 Estim Creat Clear Calc 44.15 Est GFR (MDRD) Af Amer 71 Est GFR (MDRD) Non-Af 59 L BUN/Creatinine Ratio 27.4 H Glucose 199 H Calcium 8.5 POC Glucose 195 H Micro: Microbiology 10/03/20 11:20 Urine, Clean Catch Urine Culture - Final Mixed Gram Positive Organisms 10/04/20 23:00 Urine, Random Legionella Antigen - Final 10/04/20 23:00 Urine, Random Streptococcus pneumoniae Antigen (M - Final 10/03/20 10:54 Mucosa - Nasopharyngeal SARS-CoV-2 Antigen (Rapid) - Final Physical Exam Const alert, oriented x3 and no apparent distress Orientation / Consciousness: awake, oriented to person, oriented to place and oriented to time Nutritional Appearance: cachectic HEENT normocephalic and moist oral mucous membranes Eyes PERRL, EOMs intact bilaterally and conjunctivae normal Neck no lymphadenopathy Resp normal respiratory effort Auscultation: rhonchi Cardio regular rate, regular rhythm and no murmurs Peripheral Pulses: pulses 2+ throughout GI normal to inspection, nondistended, normoactive bowel sounds, non-tender and non-distended Extremity normal to inspection Skin no rashes or lesions noted Lesions: no lesions Rashes: no rashes Trauma: no lacerations or abrasions Neuro CN's II-XII intact bilaterally, no focal motor deficits, no sensory deficits noted and deep tendon reflexes 2+ bilaterally Psych mental status grossly normal and affect normal Assessment & Plan Assessment/Plan (1) Acute on chronic respiratory failure with hypoxemia: PLAN: 1.? Acute on chronic hypoxic respiratory failure secondary to community-acquired pneumonia, acute on chronic heart failure with preserved ejection fraction, complicated by underlying unspecified interstitial lung disease-CTA without PE.? Continue IV Unasyn and IV azithromycin.? Albuterol and DuoNeb aerosols.? Continue supplement oxygen to maintain O2 at or above 90%.? Speech therapy consult to assess for aspiration risk.? IV Solu-Medrol per pulmonary recommendations.? Autoimmune work-up ordered.? Echocardiogram demonstrates an EF of 60%, stage II diastolic dysfunction, mild mitral valve insufficiency, pulmonary artery systolic pressure 70 mmHg.? IV Lasix.? Strict I&O.? Daily weight. 2.? Sepsis secondary to community-acquired pneumonia-treatment per above. 3.? New onset atrial fibrillation-converted to sinus rhythm.? Echocardiogram as noted above.? Continue home metoprolol regimen. 4. Hypertension-stable, on amlodipine, lisinopril, metoprolol. 5. Type 2 diabetes mellitus-hold metformin.? Accu-Cheks with sliding scale insulin. 6. Depression-on sertraline. DVT prophylaxis- heparin sc This patient was seen by Elida Campos NP-Sarai under the supervision of Dr. Lyn. Documented by User: Dr. Yaw Lyn, DO 10/05/20 12:44 Objective Data Lab / Micro Data Result Diagrams: 10/05/20 05:30 10/05/20 05:30 Addendum Addendum: Patient was seen and examined independently of Elida Campos today, he continues to require 6 L of oxygen via nasal cannula, overall on examination, his breath sounds do not sound changed from yesterday. On examination he appeared in good health and spirits. Vital signs as documented. Skin warm and dry and without overt rashes. Neck without JVD, neck was supple, trachea midline, thyroid was normal. Lungs-severe coarse inspiratory rales are noted over all lung schmid, normal air movement was noted. Heart exam notable for regular rhythm, normal sounds and absence of murmurs, rubs or gallops. Abdomen unremarkable and without evidence of organomegaly, masses, or abdominal aortic enlargement. Bowel sounds are present, abdomen is not distended. Extremities nonedematous, no cyanosis was noted, no clubbing was noted. Neuro: Cranial nerves II through XII are grossly intact, no focal motor deficits were noted, sensation to light touch and pinprick intact, motor exam 5/5 throughout. Psych: Patient is alert and oriented x3, he does not appear anxious or depressed, he does not appear agitated. We will continue present medications, continue to wean oxygen if possible. I have reviewed Elida Campos's progress note including her medical assessment and plan of care and endorse it. Visit Charges Inpatient E&M: 57836 Subs Hosp L2
[2020-10-05] MEDS: 0.9% Saline Lock 10 ML Syringe IV ×3 (13:12→17:39)
[2020-10-05 13:21] LABS: Bedside Glucose 428 mg/dL (70-110)
[2020-10-05 13:21] LABS: Bedside Glucose 403 mg/dL (70-110)
--- NOTE | 2020-10-05 13:54 | NURSING ---
Therapy states on 5L 78% walking. Per therapy increased 7L pt at 83%. Increased oxygen to 10L NC.
[2020-10-05 17:11] LABS: Bedside Glucose 220 mg/dL (70-110)
[2020-10-05] MEDS: Sertraline 50 MG Tablet 25 MG PO (21:09)
[2020-10-05 21:25] LABS: Bedside Glucose 319 mg/dL (70-110)
[2020-10-06] VITALS (17 sets, daily range): BP systolic 111–129; BP diastolic 49–79; PULSE 73–96; RESP 16–26; TEMP 36.4–37.1; O2SAT 92–95
[2020-10-06] MEDS: Ipratropium/Albuterol Sulfate 3 ML AMPUL.NEB INHALATION ×4 (01:01→19:20)
[2020-10-06] MEDS: Furosemide 20 MG/2 ML VIAL IV (05:37)
[2020-10-06] MEDS: 0.9% Saline Lock 10 ML Syringe IV ×3 (05:44→17:13)
[2020-10-06 06:28] LABS: Absolute Lymphocyte Count 0.66 X10^3/uL (0.83-4.51); Absolute Neutrophil Count 17.6 X10^3/uL (2.0-7.7); Basophil# 0.02 X10^3/uL; Basophil% 0.1 % (0-1); Hematocrit 35.1 % (40-54); Hemoglobin 11.1 g/dL (13.0-16.5); Lymphocyte # 0.66 X10^3/ul (0.83-4.51); Lymphocyte % 3.5 % (19-41); Mean Corp Hgb Conc 31.6 g/dL (32-36); Mean Corpuscular Hgb 30.9 pg (27.0-32.0); Mean Corpuscular Volume 97.8 fL (80-94); Mean Platelet Vol. 9.3 fl (6.2-12.0); Monocyte# 0.43 X10^3/uL; Monocyte% 2.3 % (0-10); NRBC Flagged by Analyzer 0 % (0-5); Neutrophil % 93.3 % (47-70); Platelet Count 272 K/mm3 (150-450); RBC Distribution Width CV 14.6 % (11.6-14.6); RBC Distribution Width SD 52.5 fl (35.1-43.9); Red Blood Count 3.59 M/mm3 (4.6-6.2); White Blood Count 18.9 K/mm3 (4.4-11.0)
[2020-10-06] MEDS: Insulin Lispro 100 UNIT/ML INSULN.PEN SC ×4 (06:43→21:01)
[2020-10-06 06:49] LABS: Anion Gap 10 (5-15); BUN 44 mg/dL (7-18); BUN/Creat Ratio 27.3 RATIO (10-20); Calcium,Total 8.5 mg/dL (8.5-10.1); Chloride 100 mmol/L (98-107); Creatinine, Serum 1.61 mg/dL (0.70-1.30); EST Glomerular Filtration Rate 43 mL/min (>60); Est Glom Filt Rate - Afr Amer 53 mL/min (>60); Estimated Creatinine Clearance 34.01 ml/min; Glucose 249 mg/dL (74-106); Potassium 3.9 mmol/L (3.5-5.1); Sodium Level 140 mmol/L (136-145)
--- NOTE | 2020-10-06 07:18 | PCM.PN.INT ---
Assessment & Plan Assessment/Plan (1) Acute on chronic respiratory failure with hypoxemia: PLAN: RECOMMENDATIONS: 1. Wean supplemental oxygen to maintain saturations at or above 90%. 2. Encourage compliance with supplemental oxygen 3. Await autoimmune work-up. 4. Continue aggressive bronchopulmonary hygiene. 5. Anticipate 5 to 7 days of empiric antibiotics 6. Continue Solu-Medrol for now 7. Decrease diuresis IMPRESSIONS: 1. Acute on chronic hypoxemic respiratory failure The patient was initially referred to the emergency department over concerns for respiratory decompensation secondary to underlying dysrhythmia. However, the patient was found to be in normal sinus rhythm. CTA chest showed no evidence for PE, but did demonstrate significant bilateral ground glass and consolidative changes, predominantly in the lung bases bilaterally. There has been some concern in the past for underlying pulmonary fibrosis due to chronic aspiration. However, the patient's radiographic findings could also represent organizing pneumonia. At this time, we will plan to send an autoimmune work-up. The patient should be continued on empiric antimicrobials to complete a 5 to 7-day course. Patient on elevated steroids, as an entity like cryptogenic organizing pneumonia tends to be steroid responsive. In addition to the aforementioned, given that the patient has a history of noncompliance with the use of supplemental oxygen. Echocardiogram does show significant pulmonary hypertension. Patient will need a walking oximetry prior to discharge to see if he can qualify for a high flow oxygen concentrator at home. 2. Unspecified interstitial lung disease Initially felt to be the consequence of recurrent aspiration leading to pulmonary fibrosis. However, the patient's CT scan findings could also represent organizing pneumonia. As noted above, will await autoimmune work-up. The patient will be transitioned to IV Solu-Medrol. He has already been initiated on antimicrobials, which will be continued. Although bronchoscopy with transbronchial biopsies is a consideration, the patient is not interested in pursuing an invasive work-up. 3. Chronic heart failure with preserved ejection fraction/pulmonary hypertension Continue current supportive measures. Patient appears to be euvolemic to slightly dry. Will transition to p.o. prednisone. Repeat echocardiogram confirmed worsening pulmonary hypertension. 4. Hypertension/diabetes mellitus/advanced age Complicates care, management, recovery and prognosis. Continue home medications as indicated. This note was generated with [employer] software. It may contain incorrect words, spelling, and punctuation that were not noted in checking the note before signing. Subjective Subjective Patient did okay overnight. Patient reports subjective improvement in dyspnea, but states she is only been moving around the room. Patient was able to be weaned to 5 L nasal cannula. Patient does report decreased urination overnight. Objective Data Objective Data Vital Signs: Vital Signs Temp Pulse Resp BP Pulse Ox 36.4 C L 93 18 116/58 L 95 10/06/20 03:11 10/06/20 03:11 10/06/20 03:11 10/06/20 03:11 10/06/20 03:11 Oxygen Flow Rate (L/min) 5 Oxygen Delivery Method Nasal Cannula Weight: 78.8 kg Body Mass Index (BMI) 24.9 Intake & Output: Intake and Output for Last 24 Hours 10/04/20 10/05/20 10/06/20 23:59 23:59 23:59 Intake Total 1148 / 1388 2088 / 2208 292 / 292 Output Total 1325 / 1625 620 / 820 725 / 725 Balance -177 / -237 1468 / 1388 -433 / -433 Lab / Micro Data Result Diagrams: 10/06/20 06:17 10/06/20 06:17 Labs: Laboratory Results - last 24 hr 10/05/20 10/05/20 10/05/20 11:48 11:51 16:51 WBC RBC Hgb Hct MCV MCH MCHC RDW Std Deviation RDW Coeff of James Plt Count MPV Immature Gran % (Auto) Neut % (Auto) Lymph % (Auto) [place] % (Auto) Eos % (Auto) Baso % (Auto) Absolute Neuts (auto) Absolute Lymphs (auto) Nucleated RBC % Sodium Potassium Chloride Carbon Dioxide Anion Gap BUN Creatinine Estim Creat Clear Calc Est GFR (MDRD) Af Amer Est GFR (MDRD) Non-Af BUN/Creatinine Ratio Glucose Calcium POC Glucose 403 H 428 H 220 H 10/05/20 10/06/20 10/06/20 21:08 06:17 06:17 WBC 18.9 H RBC 3.59 L Hgb 11.1 L Hct 35.1 L MCV 97.8 H MCH 30.9 MCHC 31.6 L RDW Std Deviation 52.5 H RDW Coeff of James 14.6 Plt Count 272 MPV 9.3 Immature Gran % (Auto) 0.800 Neut % (Auto) 93.3 H Lymph % (Auto) 3.5 L [place] % (Auto) 2.3 Eos % (Auto) 0.0 Baso % (Auto) 0.1 Absolute Neuts (auto) 17.6 H Absolute Lymphs (auto) 0.66 L Nucleated RBC % 0 Sodium 140 Potassium 3.9 Chloride 100 Carbon Dioxide 30.0 Anion Gap 10 BUN 44 H Creatinine 1.61 H Estim Creat Clear Calc 34.01 Est GFR (MDRD) Af Amer 53 L Est GFR (MDRD) Non-Af 43 L BUN/Creatinine Ratio 27.3 H Glucose 249 H Calcium 8.5 POC Glucose 319 H Micro: Microbiology 10/03/20 10:25 Blood Culture (Wb) - Anticubital Left Blood Culture - Preliminary No growth in 48 hours. 10/03/20 10:02 Blood Culture (Wb) - Anticubital Right Blood Culture - Preliminary No growth in 48 hours. 10/03/20 11:20 Urine, Clean Catch Urine Culture - Final Mixed Gram Positive Organisms 10/04/20 23:00 Urine, Random Legionella Antigen - Final 10/04/20 23:00 Urine, Random Streptococcus pneumoniae Antigen (M - Final 10/03/20 10:54 Mucosa - Nasopharyngeal SARS-CoV-2 Antigen (Rapid) - Final Physical Exam Const alert, oriented x3 and no apparent distress General Appearance: cooperative HEENT normocephalic, head/scalp atraumatic and moist oral mucous membranes Eyes PERRL, EOMs intact bilaterally and conjunctivae normal Neck supple General: trachea midline Resp normal respiratory effort and No no use of accessory muscles Resp Narrative: There is basilar predominant rales Effort and Inspection: able to speak in complete sentences Cardio regular rate and regular rhythm GI normal to inspection, nondistended, normoactive bowel sounds Extremity no clubbing, cyanosis or edema Skin no rashes or lesions noted Neuro oriented x3, CN's II-XII intact bilaterally, moves all extremities and no focal motor deficits Psych cooperative and affect normal Charges/Coding Visit Charges Inpatient E&M: 94829 Subs Hosp L3
[2020-10-06 07:35] LABS: Bedside Glucose 254 mg/dL (70-110)
[2020-10-06] MEDS: Potassium Chloride Oral Tablet 20 MEQ PO (08:13)
[2020-10-06] MEDS: Furosemide 20 MG Tablet PO (10:43)
[2020-10-06] MEDS: Heparin Injection (Vial) 5,000 UNIT/ML VIAL 5000 UNIT SC ×2 (10:43→21:01)
[2020-10-06] MEDS: Fluticasone 0.05% 1 SPRAY NASAL.SRY 2 SPRAY NASAL (10:43)
[2020-10-06] MEDS: Lisinopril 10 MG Tablet PO (10:44)
[2020-10-06] MEDS: Metoprolol(XL)Succ 50 MG Tablet PO (10:44)
[2020-10-06] MEDS: amLODIPine 10 MG Tablet PO (10:44)
--- NOTE | 2020-10-06 12:00 | PN.HOSP_ITS ---
Documented by User: Elida Campos NP, RETAIL SUPPORT ASSOCIATE-C 10/06/20 12:15 Subjective Subjective Patient seen and examined. Reports he feels overall improved. Shortness of breath and cough improving. Objective Data Objective Data Vital Signs: Vital Signs Temp Pulse Resp BP Pulse Ox 97.6 F L 77 20 H 116/49 L 94 10/06/20 10:37 10/06/20 10:44 10/06/20 10:37 10/06/20 10:44 10/06/20 10:37 Oxygen Flow Rate (L/min) 5 Oxygen Delivery Method Nasal Cannula Weight: 173 lb 11.588 oz Body Mass Index (BMI) 24.9 Intake & Output: Intake and Output for Last 24 Hours 10/04/20 10/05/20 10/06/20 23:59 23:59 23:59 Intake Total 1148 / 1388 2088 / 2208 292 / 292 Output Total 1325 / 1625 620 / 820 725 / 725 Balance -177 / -237 1468 / 1388 -433 / -433 Lab / Micro Data Result Diagrams: 10/06/20 06:17 10/06/20 06:17 Labs: Laboratory Results - last 24 hr 10/05/20 10/05/20 10/05/20 11:48 11:51 16:51 WBC RBC Hgb Hct MCV MCH MCHC RDW Std Deviation RDW Coeff of James Plt Count MPV Immature Gran % (Auto) Neut % (Auto) Lymph % (Auto) [place] % (Auto) Eos % (Auto) Baso % (Auto) Absolute Neuts (auto) Absolute Lymphs (auto) Nucleated RBC % Sodium Potassium Chloride Carbon Dioxide Anion Gap BUN Creatinine Estim Creat Clear Calc Est GFR (MDRD) Af Amer Est GFR (MDRD) Non-Af BUN/Creatinine Ratio Glucose Calcium POC Glucose 403 H 428 H 220 H 10/05/20 10/06/20 10/06/20 21:08 06:17 06:17 WBC 18.9 H RBC 3.59 L Hgb 11.1 L Hct 35.1 L MCV 97.8 H MCH 30.9 MCHC 31.6 L RDW Std Deviation 52.5 H RDW Coeff of James 14.6 Plt Count 272 MPV 9.3 Immature Gran % (Auto) 0.800 Neut % (Auto) 93.3 H Lymph % (Auto) 3.5 L [place] % (Auto) 2.3 Eos % (Auto) 0.0 Baso % (Auto) 0.1 Absolute Neuts (auto) 17.6 H Absolute Lymphs (auto) 0.66 L Nucleated RBC % 0 Sodium 140 Potassium 3.9 Chloride 100 Carbon Dioxide 30.0 Anion Gap 10 BUN 44 H Creatinine 1.61 H Estim Creat Clear Calc 34.01 Est GFR (MDRD) Af Amer 53 L Est GFR (MDRD) Non-Af 43 L BUN/Creatinine Ratio 27.3 H Glucose 249 H Calcium 8.5 POC Glucose 319 H 10/06/20 06:42 WBC RBC Hgb Hct MCV MCH MCHC RDW Std Deviation RDW Coeff of James Plt Count MPV Immature Gran % (Auto) Neut % (Auto) Lymph % (Auto) [place] % (Auto) Eos % (Auto) Baso % (Auto) Absolute Neuts (auto) Absolute Lymphs (auto) Nucleated RBC % Sodium Potassium Chloride Carbon Dioxide Anion Gap BUN Creatinine Estim Creat Clear Calc Est GFR (MDRD) Af Amer Est GFR (MDRD) Non-Af BUN/Creatinine Ratio Glucose Calcium POC Glucose 254 H Micro: Microbiology 10/03/20 10:25 Blood Culture (Wb) - Anticubital Left Blood Culture - Preliminary No growth in 48 hours. 10/03/20 10:02 Blood Culture (Wb) - Anticubital Right Blood Culture - Preliminary No growth in 48 hours. 10/03/20 11:20 Urine, Clean Catch Urine Culture - Final Mixed Gram Positive Organisms 10/04/20 23:00 Urine, Random Legionella Antigen - Final 10/04/20 23:00 Urine, Random Streptococcus pneumoniae Antigen (M - Final 10/03/20 10:54 Mucosa - Nasopharyngeal SARS-CoV-2 Antigen (Rapid) - Final Physical Exam Const alert, oriented x3 and no apparent distress Orientation / Consciousness: awake, oriented to person, oriented to place and oriented to time Nutritional Appearance: cachectic HEENT normocephalic and moist oral mucous membranes Eyes PERRL, EOMs intact bilaterally and conjunctivae normal Neck no lymphadenopathy Resp normal respiratory effort Auscultation: rales Cardio regular rate, regular rhythm and no murmurs Peripheral Pulses: pulses 2+ throughout GI normal to inspection, nondistended, normoactive bowel sounds, non-tender and non-distended Extremity normal to inspection Skin no rashes or lesions noted Lesions: no lesions Rashes: no rashes Trauma: no lacerations or abrasions Neuro CN's II-XII intact bilaterally, no focal motor deficits, no sensory deficits noted and deep tendon reflexes 2+ bilaterally Psych mental status grossly normal and affect normal Assessment & Plan Assessment/Plan (1) Acute on chronic respiratory failure with hypoxemia: PLAN: 1. Acute on chronic hypoxic respiratory failure secondary to community-acquired pneumonia, acute on chronic heart failure with preserved ejection fraction, complicated by underlying unspecified interstitial lung disease-CTA without PE. Continue IV Unasyn and IV azithromycin. Albuterol and DuoNeb aerosols. Continue supplement oxygen to maintain O2 at or above 90%. Speech therapy consult to assess for aspiration risk. IV Solu-Medrol per pulmonary recommendations. Autoimmune work-up ordered. Echocardiogram demonstrates an EF of 60%, stage II diastolic dysfunction, mild mitral valve insufficiency, pulmonary artery systolic pressure 70 mmHg. Transition to oral Lasix. Strict I&O. Daily weight. 2. Sepsis secondary to community-acquired pneumonia-treatment per above. 3. New onset atrial fibrillation-converted to sinus rhythm. Echocardiogram as noted above. Continue home metoprolol regimen. 4. Hypertension-stable, on amlodipine, lisinopril, metoprolol. 5. Type 2 diabetes mellitus-hold metformin. Accu-Cheks with sliding scale insulin. 6. Depression-on sertraline. DVT prophylaxis- heparin sc Discharge planning: Possible discharge 10/07/2020 if patient qualifies for high flow oxygen concentrator at home. This patient was seen by LUCI Garza under the supervision of Dr. Lyn. Documented by User: Dr. Yaw Lyn DO 10/06/20 12:28 Objective Data Lab / Micro Data Result Diagrams: 10/06/20 06:17 10/06/20 06:17 Addendum Addendum: Patient was seen and examined independently of Elida Campos, he is currently on 4 L of oxygen and he does not appear short of breath at rest. Pulmonary medicine reduce the patient's Lasix today and transition him to oral Lasix On examination he appeared in good health and spirits. Vital signs as docu mented. Skin warm and dry and without overt rashes. Neck without JVD, neck was supple, trachea midline, thyroid was normal. Lungs-inspiratory rales were noted over all lung schmid, normal air movement was noted. Heart exam notable for regular rhythm, normal sounds and absence of murmurs, rubs or gallops. Abdomen unremarkable and without evidence of organomegaly, masses, or abdominal aortic enlargement. Bowel sounds are present, abdomen is not distended. Extremities nonedematous, no cyanosis was noted, no clubbing was noted. Neuro: Cranial nerves II through XII are grossly intact, no focal motor deficits were noted, sensation to light touch and pinprick intact, motor exam 5/5 throughout. Psych: Patient is alert and oriented x3, he does not appear anxious or depressed, he does not appear agitated. I have reviewed Elida Campos's progress note including her medical assessment and plan of care and endorse it. Visit Charges Inpatient E&M: 96144 Subs Hosp L2
[2020-10-06 12:50] LABS: Bedside Glucose 348 mg/dL (70-110)
[2020-10-06 17:46] LABS: Bedside Glucose 252 mg/dL (70-110)
[2020-10-06] MEDS: Sertraline 50 MG Tablet 25 MG PO (21:01)
[2020-10-06 21:11] LABS: Bedside Glucose 334 mg/dL (70-110)
[2020-10-07] VITALS (18 sets, daily range): BP systolic 115–124; BP diastolic 50–72; PULSE 61–94; RESP 18–22; TEMP 36.4–36.6; O2SAT 76–93
[2020-10-07] MEDS: 0.9% Saline Lock 10 ML Syringe IV ×4 (05:08→23:35)
[2020-10-07 05:34] LABS: Absolute Lymphocyte Count 0.55 X10^3/uL (0.83-4.51); Absolute Neutrophil Count 15.1 X10^3/uL (2.0-7.7); Basophil# 0.02 X10^3/uL; Basophil% 0.1 % (0-1); Hematocrit 37.5 % (40-54); Hemoglobin 11.7 g/dL (13.0-16.5); Lymphocyte # 0.55 X10^3/ul (0.83-4.51); Lymphocyte % 3.4 % (19-41); Mean Corp Hgb Conc 31.2 g/dL (32-36); Mean Corpuscular Hgb 30.7 pg (27.0-32.0); Mean Corpuscular Volume 98.4 fL (80-94); Mean Platelet Vol. 9.2 fl (6.2-12.0); Monocyte# 0.33 X10^3/uL; NRBC Flagged by Analyzer 0 % (0-5); Neutrophil # 15.06 X10^3/uL (2.7-7.7); Neutrophil % 93.2 % (47-70); POSITIVE DIFFERENTIAL YES; Platelet Count 291 K/mm3 (150-450); RBC Distribution Width CV 14.6 % (11.6-14.6); RBC Distribution Width SD 52.9 fl (35.1-43.9); Red Blood Count 3.81 M/mm3 (4.6-6.2); White Blood Count 16.2 K/mm3 (4.4-11.0)
[2020-10-07 05:49] LABS: Anion Gap 7 (5-15); BUN 46 mg/dL (7-18); BUN/Creat Ratio 32.9 RATIO (10-20); Calcium,Total 8.5 mg/dL (8.5-10.1); Chloride 99 mmol/L (98-107); EST Glomerular Filtration Rate 51 mL/min (>60); Est Glom Filt Rate - Afr Amer 62 mL/min (>60); Estimated Creatinine Clearance 39.11 ml/min; Glucose 215 mg/dL (74-106); Potassium 3.7 mmol/L (3.5-5.1); Sodium Level 139 mmol/L (136-145)
[2020-10-07 06:03] LABS: Differential Indicated SCAN CRITERIA MET
[2020-10-07] MEDS: Insulin Lispro 100 UNIT/ML INSULN.PEN SC ×4 (06:32→21:58)
[2020-10-07 06:41] LABS: Bedside Glucose 204 mg/dL (70-110)
[2020-10-07] MEDS: Ipratropium/Albuterol Sulfate 3 ML AMPUL.NEB INHALATION ×3 (07:13→19:22)
[2020-10-07 07:41] LABS: ANTINUCLEAR ANTIBODIES DIRECT Negative (Negative)
--- NOTE | 2020-10-07 08:17 | PCM.PN.INT ---
Assessment & Plan Assessment/Plan (1) Acute on chronic respiratory failure with hypoxemia: PLAN: RECOMMENDATIONS: 1. Wean supplemental oxygen to maintain saturations at or above 90%. 2. Encourage compliance with supplemental oxygen 3. Await autoimmune work-up. 4. Continue aggressive bronchopulmonary hygiene. 5. Anticipate 5 to 7 days of empiric antibiotics 6. Continue Solu-Medrol for now 7. Obtain walk today. Patient may require a high flow concentrator at home IMPRESSIONS: 1. Acute on chronic hypoxemic respiratory failure The patient was initially referred to the emergency department over concerns for respiratory decompensation secondary to underlying dysrhythmia. However, the patient was found to be in normal sinus rhythm. CTA chest showed no evidence for PE, but did demonstrate significant bilateral ground glass and consolidative changes, predominantly in the lung bases bilaterally. There has been some concern in the past for underlying pulmonary fibrosis due to chronic aspiration. However, the patient's radiographic findings could also represent organizing pneumonia. At this time, we will plan to send an autoimmune work-up. The patient should be continued on empiric antimicrobials to complete a 5 to 7-day course. Patient on elevated steroids, as an entity like cryptogenic organizing pneumonia tends to be steroid responsive. Patient would be transition to p.o. prednisone with a slow taper over 12 to 14 days on discharge. Clinical suspicion the patient will require at least 5 to 6 L with ambulation, requiring a high flow concentrator at home. 2. Unspecified interstitial lung disease Initially felt to be the consequence of recurrent aspiration leading to pulmonary fibrosis. However, the patient's CT scan findings could also represent organizing pneumonia. As noted above, will await autoimmune work-up. The patient will be transitioned to IV Solu-Medrol. He has already been initiated on antimicrobials, which will be continued. Although bronchoscopy with transbronchial biopsies is a consideration, the patient is not interested in pursuing an invasive work-up. 3. Chronic heart failure with preserved ejection fraction/pulmonary hypertension Continue current supportive measures. Patient appears to be euvolemic to slightly dry. Patient tolerated transition to p.o. diuretic therapy. Repeat echocardiogram confirmed worsening pulmonary hypertension. 4. Hypertension/diabetes mellitus/advanced age Complicates care, management, recovery and prognosis. Continue home medications as indicated. This note was generated with [employer] software. It may contain incorrect words, spelling, and punctuation that were not noted in checking the note before signing. Subjective Subjective Patient did well overnight. No acute issues were reported. Patient states he was able to walk around the room, but not in the hallway yesterday secondary to concerns for oxygenation. Objective Data Objective Data Vital Signs: Vital Signs Temp Pulse Resp BP Pulse Ox 36.6 C 74 18 123/72 H 92 10/07/20 04:55 10/07/20 07:10 10/07/20 07:10 10/07/20 04:55 10/07/20 07:10 Oxygen Flow Rate (L/min) 4 Oxygen Delivery Method Nasal Cannula Weight: 78.8 kg Body Mass Index (BMI) 24.9 Intake & Output: Intake and Output for Last 24 Hours 10/05/20 10/06/20 10/07/20 23:59 23:59 23:59 Intake Total 2088 / 2208 1768 / 1888 464 / 464 Output Total 620 / 820 725 / 975 500 / 500 Balance 1468 / 1388 1043 / 913 -36 / -36 Lab / Micro Data Result Diagrams: 10/07/20 05:18 10/07/20 05:18 Labs: Laboratory Results - last 24 hr 10/04/20 10/06/20 10/06/20 08:45 12:13 17:38 WBC RBC Hgb Hct MCV MCH MCHC RDW Std Deviation RDW Coeff of James Plt Count MPV Immature Gran % (Auto) Neut % (Auto) Lymph % (Auto) [place] % (Auto) Eos % (Auto) Baso % (Auto) Absolute Neuts (auto) Absolute Lymphs (auto) Nucleated RBC % Sodium Potassium Chloride Carbon Dioxide Anion Gap BUN Creatinine Estim Creat Clear Calc Est GFR (MDRD) Af Amer Est GFR (MDRD) Non-Af BUN/Creatinine Ratio Glucose Calcium TIFFANY Screen Negative POC Glucose 348 H 252 H 10/06/20 10/07/20 10/07/20 21:00 05:18 05:18 WBC 16.2 H RBC 3.81 L Hgb 11.7 L Hct 37.5 L MCV 98.4 H MCH 30.7 MCHC 31.2 L RDW Std Deviation 52.9 H RDW Coeff of James 14.6 Plt Count 291 MPV 9.2 Immature Gran % (Auto) 1.300 H Neut % (Auto) 93.2 H Lymph % (Auto) 3.4 L [place] % (Auto) 2.0 Eos % (Auto) 0.0 Baso % (Auto) 0.1 Absolute Neuts (auto) 15.1 H Absolute Lymphs (auto) 0.55 L Nucleated RBC % 0 Sodium 139 Potassium 3.7 Chloride 99 Carbon Dioxide 33.0 H Anion Gap 7 BUN 46 H Creatinine 1.40 H Estim Creat Clear Calc 39.11 Est GFR (MDRD) Af Amer 62 Est GFR (MDRD) Non-Af 51 L BUN/Creatinine Ratio 32.9 H Glucose 215 H Calcium 8.5 TIFFANY Screen POC Glucose 334 H 10/07/20 06:31 WBC RBC Hgb Hct MCV MCH MCHC RDW Std Deviation RDW Coeff of James Plt Count MPV Immature Gran % (Auto) Neut % (Auto) Lymph % (Auto) [place] % (Auto) Eos % (Auto) Baso % (Auto) Absolute Neuts (auto) Absolute Lymphs (auto) Nucleated RBC % Sodium Potassium Chloride Carbon Dioxide Anion Gap BUN Creatinine Estim Creat Clear Calc Est GFR (MDRD) Af Amer Est GFR (MDRD) Non-Af BUN/Creatinine Ratio Glucose Calcium TIFFANY Screen POC Glucose 204 H Micro: Microbiology 10/03/20 10:25 Blood Culture (Wb) - Anticubital Left Blood Culture - Preliminary No growth in 48 hours. 10/03/20 10:02 Blood Culture (Wb) - Anticubital Right Blood Culture - Preliminary No growth in 48 hours. 10/03/20 11:20 Urine, Clean Catch Urine Culture - Final Mixed Gram Positive Organisms 10/04/20 23:00 Urine, Random Legionella Antigen - Final 10/04/20 23:00 Urine, Random Streptococcus pneumoniae Antigen (M - Final 10/03/20 10:54 Mucosa - Nasopharyngeal SARS-CoV-2 Antigen (Rapid) - Final Physical Exam Const alert, oriented x3 and no apparent distress General Appearance: cooperative HEENT normocephalic, head/scalp atraumatic and moist oral mucous membranes Eyes PERRL, EOMs intact bilaterally and conjunctivae normal Neck supple General: trachea midline Resp normal respiratory effort and No no use of accessory muscles Resp Narrative: There is basilar predominant rales Effort and Inspection: able to speak in complete sentences Cardio regular rate and regular rhythm GI normal to inspection, nondistended, normoactive bowel sounds Extremity no clubbing, cyanosis or edema Skin no rashes or lesions noted Neuro oriented x3, CN's II-XII intact bilaterally, moves all extremities and no focal motor deficits Psych cooperative and affect normal Charges/Coding Visit Charges Inpatient E&M: 14710 Subs Hosp L2
[2020-10-07] MEDS: Potassium Chloride Oral Tablet 20 MEQ PO (10:46)
[2020-10-07] MEDS: Heparin Injection (Vial) 5,000 UNIT/ML VIAL 5000 UNIT SC ×2 (10:46→21:58)
[2020-10-07] MEDS: Fluticasone 0.05% 1 SPRAY NASAL.SRY 2 SPRAY NASAL (10:46)
[2020-10-07] MEDS: amLODIPine 10 MG Tablet PO (10:47)
[2020-10-07] MEDS: Lisinopril 10 MG Tablet PO (10:47)
[2020-10-07] MEDS: Metoprolol(XL)Succ 50 MG Tablet PO (10:47)
[2020-10-07] MEDS: Furosemide 20 MG Tablet PO (10:47)
--- NOTE | 2020-10-07 12:09 | PN.HOSP_ITS ---
Documented by User: Elida Campos NP, CLINICAL TRIALS NURSE-C 10/07/20 12:27 Subjective Subjective Patient seen and examined. Reports improvement in shortness of breath. Feels overall improved. On 2 L nasal cannula at rest however patient was ambulated this morning and required 12 L to maintain appropriate O2 saturations with walking. Objective Data Objective Data Vital Signs: Vital Signs Temp Pulse Resp BP Pulse Ox 97.6 F L 62 18 118/63 93 10/07/20 10:42 10/07/20 10:47 10/07/20 10:42 10/07/20 10:42 10/07/20 10:42 Oxygen Flow Rate (L/min) [ 12 AMBULATING with Oxygen #3] Oxygen Flow Rate (L/min) [ 10 AMBULATING with Oxygen #2] Oxygen Flow Rate (L/min) [ 8 AMBULATING with Oxygen #1] Oxygen Flow Rate (L/min) [At 0 REST on Room Air] Oxygen Flow Rate (L/min) 2 Oxygen Delivery Method Nasal Cannula Weight: 173 lb 11.588 oz Body Mass Index (BMI) 24.9 Intake & Output: Intake and Output for Last 24 Hours 10/05/20 10/06/20 10/07/20 23:59 23:59 23:59 Intake Total 2088 / 2208 1768 / 1888 824 / 824 Output Total 620 / 820 725 / 975 500 / 500 Balance 1468 / 1388 1043 / 913 324 / 324 Lab / Micro Data Result Diagrams: 10/07/20 05:18 10/07/20 05:18 Labs: Laboratory Results - last 24 hr 10/04/20 10/06/20 10/06/20 08:45 12:13 17:38 WBC RBC Hgb Hct MCV MCH MCHC RDW Std Deviation RDW Coeff of James Plt Count MPV Immature Gran % (Auto) Neut % (Auto) Lymph % (Auto) [place] % (Auto) Eos % (Auto) Baso % (Auto) Absolute Neuts (auto) Absolute Lymphs (auto) Nucleated RBC % Sodium Potassium Chloride Carbon Dioxide Anion Gap BUN Creatinine Estim Creat Clear Calc Est GFR (MDRD) Af Amer Est GFR (MDRD) Non-Af BUN/Creatinine Ratio Glucose Calcium TIFFANY Screen Negative POC Glucose 348 H 252 H 10/06/20 10/07/20 10/07/20 21:00 05:18 05:18 WBC 16.2 H RBC 3.81 L Hgb 11.7 L Hct 37.5 L MCV 98.4 H MCH 30.7 MCHC 31.2 L RDW Std Deviation 52.9 H RDW Coeff of James 14.6 Plt Count 291 MPV 9.2 Immature Gran % (Auto) 1.300 H Neut % (Auto) 93.2 H Lymph % (Auto) 3.4 L [place] % (Auto) 2.0 Eos % (Auto) 0.0 Baso % (Auto) 0.1 Absolute Neuts (auto) 15.1 H Absolute Lymphs (auto) 0.55 L Nucleated RBC % 0 Sodium 139 Potassium 3.7 Chloride 99 Carbon Dioxide 33.0 H Anion Gap 7 BUN 46 H Creatinine 1.40 H Estim Creat Clear Calc 39.11 Est GFR (MDRD) Af Amer 62 Est GFR (MDRD) Non-Af 51 L BUN/Creatinine Ratio 32.9 H Glucose 215 H Calcium 8.5 TIFFANY Screen POC Glucose 334 H 10/07/20 06:31 WBC RBC Hgb Hct MCV MCH MCHC RDW Std Deviation RDW Coeff of James Plt Count MPV Immature Gran % (Auto) Neut % (Auto) Lymph % (Auto) [place] % (Auto) Eos % (Auto) Baso % (Auto) Absolute Neuts (auto) Absolute Lymphs (auto) Nucleated RBC % Sodium Potassium Chloride Carbon Dioxide Anion Gap BUN Creatinine Estim Creat Clear Calc Est GFR (MDRD) Af Amer Est GFR (MDRD) Non-Af BUN/Creatinine Ratio Glucose Calcium TIFFANY Screen POC Glucose 204 H Micro: Microbiology 10/03/20 10:25 Blood Culture (Wb) - Anticubital Left Blood Culture - Preliminary No growth in 48 hours. 10/03/20 10:02 Blood Culture (Wb) - Anticubital Right Blood Culture - Preliminary No growth in 48 hours. 10/03/20 11:20 Urine, Clean Catch Urine Culture - Final Mixed Gram Positive Organisms 10/04/20 23:00 Urine, Random Legionella Antigen - Final 10/04/20 23:00 Urine, Random Streptococcus pneumoniae Antigen (M - Final 10/03/20 10:54 Mucosa - Nasopharyngeal SARS-CoV-2 Antigen (Rapid) - Final Physical Exam Const alert, oriented x3 and no apparent distress Orientation / Consciousness: awake, oriented to person, oriented to place and oriented to time HEENT normocephalic and moist oral mucous membranes Eyes PERRL, EOMs intact bilaterally and conjunctivae normal Neck no lymphadenopathy Resp Auscultation: rales and diminished lung sounds Cardio regular rate, regular rhythm and no murmurs Peripheral Pulses: pulses 2+ throughout GI normal to inspection, nondistended, normoactive bowel sounds, non-tender and non-distended Extremity normal to inspection Skin no rashes or lesions noted Lesions: no lesions Rashes: no rashes Trauma: no lacerations or abrasions Neuro CN's II-XII intact bilaterally, no focal motor deficits, no sensory deficits noted and deep tendon reflexes 2+ bilaterally Psych mental status grossly normal and affect normal Assessment & Plan Assessment/Plan (1) Acute on chronic respiratory failure with hypoxemia: PLAN: 1. Acute on chronic hypoxic respiratory failure secondary to community-acquired pneumonia, acute on chronic heart failure with preserved ejection fraction, complicated by underlying unspecified interstitial lung disease-CTA without PE. Continue IV Unasyn and IV azithromycin. Albuterol and DuoNeb aerosols. Continue supplement oxygen to maintain O2 at or above 90%. Speech therapy consult to assess for aspiration risk. IV Solu-Medrol. Autoimmune work-up ordered. Echocardiogram demonstrates an EF of 60%, stage II diastolic dysfunction, mild mitral valve insufficiency, pulmonary artery systolic pressure 70 mmHg. Transitioned to oral Lasix. Strict I&O. Daily weight. Plan to repeat ambulatory pulse ox tomorrow. Patient required 12 L with ambulation today however on 2 to 4 L nasal cannula at rest. 2. Sepsis secondary to community-acquired pneumonia-treatment per above. Antibiotic stop date 10/10/2020. 3. New onset atrial fibrillation-converted to sinus rhythm. Echocardiogram as noted above. Continue home metoprolol regimen. Has not had further recurrence 4. Hypertension-stable, on amlodipine, lisinopril, metoprolol. 5. Type 2 diabetes mellitus-hold metformin. Accu-Cheks with sliding scale insulin. 6. Depression-on sertraline. DVT prophylaxis- heparin sc Discharge planning: Repeat ambulatory pulse ox 10/08/2020. This patient was seen by LUCI Garza under the supervision of Dr. Mag crain. Documented by User: Dr. Félix Blue DO 10/07/20 16:04 Subjective Subjective Breathing well on 4l/m at rest, however, required 12 liters with activity. Objective Data Lab / Micro Data Attestation: I reviewed the patient's lab results. Result Diagrams: 10/07/20 05:18 10/07/20 05:18 Physical Exam Const alert Resp Resp Narrative: bibasilar crackles Cardio regular rate, regular rhythm, S1 normal heart sound and S2 normal heart sound GI normal to inspection, nondistended, normoactive bowel sounds, non-tender and non-distended Assessment & Plan Assessment/Plan (1) Acute on chronic respiratory failure with hypoxemia: PLAN: Patient seen and examined independently. Data reviewed. I agree with the above note by the nurse practitioner. 1. acute on chronic respiratory failure * 2/2 pulmonary fibrosis * continue steroids, abx and BDs * still on high-flow oxygen with activity 2. Sepsis * 2/2 pneumonia * improving 3. Pneumonia * continue with abx 4. Pulmonary fibrosis * chronic aspiration v work as sulaiman * follow up with pulm as outpt. Visit Charges Inpatient E&M: 53282 Subs Hosp L2
[2020-10-07 12:31] LABS: Bedside Glucose 284 mg/dL (70-110)
--- NOTE | 2020-10-07 15:52 | CASEMGMT ---
[facility] palliative screening tool completed and pt qualifies for referral. Dr. Blue agrees with referral and referral faxed to palliative at this time. Call to palliative to notify of referral. Meghan PUGH CM
[2020-10-07 17:31] LABS: Bedside Glucose 351 mg/dL (70-110)
[2020-10-07] MEDS: Sertraline 50 MG Tablet 25 MG PO (21:58)
[2020-10-07 22:26] LABS: Bedside Glucose 359 mg/dL (70-110)
[2020-10-08] VITALS (14 sets, daily range): BP systolic 110–128; BP diastolic 62–70; PULSE 57–88; RESP 16–18; TEMP 36.3–36.9; O2SAT 76–94
[2020-10-08 03:06] LABS: Cytoplasmic Ab (C-ANCA) 1:20 titer (Neg:<1:20)
[2020-10-08] MEDS: 0.9% Saline Lock 10 ML Syringe IV ×2 (05:15→11:26)
[2020-10-08 06:51] LABS: Absolute Lymphocyte Count 0.55 X10^3/uL (0.83-4.51); Basophil# 0.02 X10^3/uL; Basophil% 0.2 % (0-1); Hematocrit 37.3 % (40-54); Hemoglobin 11.8 g/dL (13.0-16.5); Lymphocyte # 0.55 X10^3/ul (0.83-4.51); Lymphocyte % 4.6 % (19-41); Mean Corp Hgb Conc 31.6 g/dL (32-36); Mean Corpuscular Volume 97.9 fL (80-94); Mean Platelet Vol. 9.6 fl (6.2-12.0); Monocyte# 0.34 X10^3/uL; Monocyte% 2.8 % (0-10); NRBC Flagged by Analyzer 0 % (0-5); Neutrophil # 10.95 X10^3/uL (2.7-7.7); Neutrophil % 91.1 % (47-70); POSITIVE DIFFERENTIAL YES; Platelet Count 293 K/mm3 (150-450); RBC Distribution Width CV 14.5 % (11.6-14.6); RBC Distribution Width SD 51.9 fl (35.1-43.9); Red Blood Count 3.81 M/mm3 (4.6-6.2)
[2020-10-08] MEDS: Insulin Lispro 100 UNIT/ML INSULN.PEN SC ×2 (06:51→10:29)
[2020-10-08 06:55] LABS: Differential Indicated SCAN CRITERIA MET
[2020-10-08 07:01] LABS: Bedside Glucose 215 mg/dL (70-110)
[2020-10-08 07:17] LABS: Differential Comment SCANNED
[2020-10-08] MEDS: Ipratropium/Albuterol Sulfate 3 ML AMPUL.NEB INHALATION ×2 (07:20→13:23)
[2020-10-08 07:25] LABS: CCP IgG Antibodies 25 units (0-19); Perinuclear Ab (P-ANCA) <1:20 titer (Neg:<1:20)
[2020-10-08 07:28] LABS: Anion Gap 7 (5-15); BUN 43 mg/dL (7-18); BUN/Creat Ratio 33.6 RATIO (10-20); Calcium,Total 8.5 mg/dL (8.5-10.1); Chloride 100 mmol/L (98-107); Creatinine, Serum 1.28 mg/dL (0.70-1.30); EST Glomerular Filtration Rate 57 mL/min (>60); Est Glom Filt Rate - Afr Amer 69 mL/min (>60); Estimated Creatinine Clearance 42.77 ml/min; Glucose 221 mg/dL (74-106); Potassium 3.6 mmol/L (3.5-5.1); Sodium Level 140 mmol/L (136-145)
--- NOTE | 2020-10-08 07:45 | PN.CC_ITS ---
Assessment & Plan Assessment/Plan (1) Acute on chronic respiratory failure with hypoxemia: PLAN: RECOMMENDATIONS: 1. Wean supplemental oxygen to maintain saturations at or above 90%. 2. Encourage compliance with supplemental oxygen 3. Await remainder of autoimmune work-up. 4. Continue aggressive bronchopulmonary hygiene. 5. Anticipate 5 to 7 days of empiric antibiotics 6. Likely okay to transition to prednisone and wean over 12 to 14 days 7. Obtain walk today. Patient may require a high flow concentrator at home IMPRESSIONS: 1. Acute on chronic hypoxemic respiratory failure The patient was initially referred to the emergency department over concerns for respiratory decompensation secondary to underlying dysrhythmia. However, the patient was found to be in normal sinus rhythm. CTA chest showed no evidence for PE, but did demonstrate significant bilateral ground glass and consolidative changes, predominantly in the lung bases bilaterally. There has been some concern in the past for underlying pulmonary fibrosis due to chronic aspiration. However, the patient's radiographic findings could also represent organizing pneumonia. Patient appears to be stable at rest. TIFFANY was negative, but rheumatoid factor was slightly elevated. Await additional autoimmune work- up. Clinical suspicion for continued high need with ambulation secondary to pulmonary hypertension. Patient reportedly is not very compliant with supplemental oxygen at home. 2. Unspecified interstitial lung disease Initially felt to be the consequence of recurrent aspiration leading to pulmonary fibrosis. However, the patient's CT scan findings could also represent organizing pneumonia. As noted above, will await autoimmune work-up. The patient will be transitioned to IV Solu-Medrol. He has already been initiated on antimicrobials, which will be continued. Although bronchoscopy with transbronchial biopsies is a consideration, the patient is not interested in pursuing an invasive work-up. 3. Chronic heart failure with preserved ejection fraction/pulmonary hypertension Continue current supportive measures. Patient appears to be euvolemic to slightly dry. Patient tolerated transition to p.o. diuretic therapy. Repeat echocardiogram confirmed worsening pulmonary hypertension. 4. Hypertension/diabetes mellitus/advanced age Complicates care, management, recovery and prognosis. Continue home medications as indicated. This note was generated with [employer] software. It may contain incorrect words, spelling, and punctuation that were not noted in checking the note before signing. Subjective Subjective Patient did well overnight. Patient with no complaints this morning. Patient reporting that he felt fine when his walking oximetry was completed yesterday. Objective Data Objective Data Patient did have a walking oximetry yesterday and required 12 L nasal cannula with exertion. Vital Signs: Vital Signs Temp Pulse Resp BP Pulse Ox 36.3 C L 57 L 18 110/63 90 10/08/20 06:40 10/08/20 07:06 10/08/20 06:40 10/08/20 06:40 10/08/20 06:40 Oxygen Flow Rate (L/min) [ 12 AMBULATING with Oxygen #3] Oxygen Flow Rate (L/min) [ 10 AMBULATING with Oxygen #2] Oxygen Flow Rate (L/min) [ 8 AMBULATING with Oxygen #1] Oxygen Flow Rate (L/min) [At 0 REST on Room Air] Oxygen Flow Rate (L/min) 5 Oxygen Delivery Method Nasal Cannula Weight: 78.8 kg Body Mass Index (BMI) 24.9 Intake & Output: Intake and Output for Last 24 Hours 10/06/20 10/07/20 10/08/20 23:59 23:59 23:59 Intake Total 1768 / 1888 1648 / 1648 224 / 224 Output Total 725 / 975 650 / 650 375 / 375 Balance 1043 / 913 998 / 998 -151 / -151 Lab / Micro Data Result Diagrams: 10/08/20 06:05 10/08/20 06:05 Labs: Laboratory Results - last 24 hr 10/04/20 10/04/20 10/07/20 08:45 08:45 11:07 WBC RBC Hgb Hct MCV MCH MCHC RDW Std Deviation RDW Coeff of James Plt Count MPV Immature Gran % (Auto) Neut % (Auto) Lymph % (Auto) Baca % (Auto) Eos % (Auto) Baso % (Auto) Absolute Neuts (auto) Absolute Lymphs (auto) Nucleated RBC % Differential Comment Sodium Potassium Chloride Carbon Dioxide Anion Gap BUN Creatinine Estim Creat Clear Calc Est GFR (MDRD) Af Amer Est GFR (MDRD) Non-Af BUN/Creatinine Ratio Glucose Calcium Cycl Citrul Peptide IgG 25 H c-ANCA Antibody 1:20 H Atypical p-ANCA <1:20 p-ANCA Antibody <1:20 REBECCA-1 Antibody Not Reportable SS-A/Ro IgG Antibody Not Reportable SS-B/La IgG Antibody Not Reportable Sm (Agrawal) Antibody Not Reportable [employer] Antibody Not Reportable Scl-70 Scleroderma Ab Not Reportable Double Strand DNA Ab Not Reportable Centromere B Antibody Not Reportable POC Glucose 284 H 10/07/20 10/07/20 10/08/20 17:08 21:57 06:05 WBC 12.0 H RBC 3.81 L Hgb 11.8 L Hct 37.3 L MCV 97.9 H MCH 31.0 MCHC 31.6 L RDW Std Deviation 51.9 H RDW Coeff of James 14.5 Plt Count 293 MPV 9.6 Immature Gran % (Auto) 1.300 H Neut % (Auto) 91.1 H Lymph % (Auto) 4.6 L Baca % (Auto) 2.8 Eos % (Auto) 0.0 Baso % (Auto) 0.2 Absolute Neuts (auto) 11.0 H Absolute Lymphs (auto) 0.55 L Nucleated RBC % 0 Differential Comment SCANNED Sodium Potassium Chloride Carbon Dioxide Anion Gap BUN Creatinine Estim Creat Clear Calc Est GFR (MDRD) Af Amer Est GFR (MDRD) Non-Af BUN/Creatinine Ratio Glucose Calcium Cycl Citrul Peptide IgG c-ANCA Antibody Atypical p-ANCA p-ANCA Antibody REBECCA-1 Antibody SS-A/Ro IgG Antibody SS-B/La IgG Antibody Sm (Agrawal) Antibody [employer] Antibody Scl-70 Scleroderma Ab Double Strand DNA Ab Centromere B Antibody POC Glucose 351 H 359 H 10/08/20 10/08/20 06:05 06:50 WBC RBC Hgb Hct MCV MCH MCHC RDW Std Deviation RDW Coeff of James Plt Count MPV Immature Gran % (Auto) Neut % (Auto) Lymph % (Auto) Baca % (Auto) Eos % (Auto) Baso % (Auto) Absolute Neuts (auto) Absolute Lymphs (auto) Nucleated RBC % Differential Comment Sodium 140 Potassium 3.6 Chloride 100 Carbon Dioxide 33.0 H Anion Gap 7 BUN 43 H Creatinine 1.28 Estim Creat Clear Calc 42.77 Est GFR (MDRD) Af Amer 69 Est GFR (MDRD) Non-Af 57 L BUN/Creatinine Ratio 33.6 H Glucose 221 H Calcium 8.5 Cycl Citrul Peptide IgG c-ANCA Antibody Atypical p-ANCA p-ANCA Antibody REBECCA-1 Antibody SS-A/Ro IgG Antibody SS-B/La IgG Antibody Sm (Agrawal) Antibody [employer] Antibody Scl-70 Scleroderma Ab Double Strand DNA Ab Centromere B Antibody POC Glucose 215 H Micro: Microbiology 10/03/20 10:25 Blood Culture (Wb) - Anticubital Left Blood Culture - Preliminary No growth in 48 hours. 10/03/20 10:02 Blood Culture (Wb) - Anticubital Right Blood Culture - Preliminary No growth in 48 hours. 10/03/20 11:20 Urine, Clean Catch Urine Culture - Final Mixed Gram Positive Organisms 10/04/20 23:00 Urine, Random Legionella Antigen - Final 10/04/20 23:00 Urine, Random Streptococcus pneumoniae Antigen (M - Final 10/03/20 10:54 Mucosa - Nasopharyngeal SARS-CoV-2 Antigen (Rapid) - Final Physical Exam Const alert, oriented x3 and no apparent distress General Appearance: cooperative HEENT normocephalic, head/scalp atraumatic and moist oral mucous membranes Eyes PERRL, EOMs intact bilaterally and conjunctivae normal Neck supple General: trachea midline Resp normal respiratory effort and No no use of accessory muscles Resp Narrative: There is basilar predominant rales Effort and Inspection: able to speak in complete sentences Cardio regular rate and regular rhythm GI normal to inspection, nondistended, normoactive bowel sounds Extremity no clubbing, cyanosis or edema Skin no rashes or lesions noted Neuro oriented x3, CN's II-XII intact bilaterally, moves all extremities and no focal motor deficits Psych cooperative and affect normal Charges/Coding Visit Charges Inpatient E&M: 92869 Subs Hosp L2
[2020-10-08] MEDS: Potassium Chloride Oral Tablet 20 MEQ PO (10:16)
[2020-10-08] MEDS: Fluticasone 0.05% 1 SPRAY NASAL.SRY 2 SPRAY NASAL (10:16)
[2020-10-08] MEDS: Furosemide 20 MG Tablet PO (10:17)
[2020-10-08] MEDS: amLODIPine 10 MG Tablet PO (10:17)
[2020-10-08] MEDS: Heparin Injection (Vial) 5,000 UNIT/ML VIAL 5000 UNIT SC (10:17)
[2020-10-08] MEDS: Metoprolol(XL)Succ 50 MG Tablet PO (10:17)
[2020-10-08] MEDS: Lisinopril 10 MG Tablet PO (10:17)
[2020-10-08 10:40] LABS: Bedside Glucose 253 mg/dL (70-110)
--- NOTE | 2020-10-08 10:53 | CASEMGMT ---
Patient does not have a Healthcare Power of Flying I Instructor or a Healthcare Living Will. Tiarra Nuñez PET STYLIST DENNYS
--- NOTE | 2020-10-08 11:27 | CASEMGMT ---
Addendum entered by Keiko Huggins 10/08/20 14:37: Alla at [facility] aware pt to discharge today, voices understanding. Meghan PUGH CM Addendum entered by Keiko Huggins 10/08/20 14:13: Per [facility], they can deliver concentrator about 1600, so /Teresita RN updated regarding at this time, voice understanding. will then come pick pt up after concentrator/e-tanks delivered. Meghan PUGH CM Addendum entered by Keiko Huggins 10/08/20 14:01: Spoke with Abigail at [facility] and she states she will 'start working on referral' at this time. Abigail aware that concentrator needs set up prior to pt discharge and they get ahold of to have her meet them at house for same. Pt updated on all, voices understanding. Pt declines need for any further resources. Teresita PUGH updated on all, voices understanding. Meghan PUGH CM Original Note: Pt qualifies for 10L w/ ambulation and 5L at rest at this time. New order faxed to [facility] at this time. Call to [facility] to notify of new order and that pt will need a 10L concentrator at home prior to discharge, voice understanding. CM to follow. Meghan PUGH CM
--- NOTE | 2020-10-08 11:50 | DCINST_ITS ---
Discharge Instructions Diet Discharge Diet: No restrictions Activity Discharge Activity: Return to Normal Activity Dressing / Incision Call your doctor if you observe: Shortness of breath, Dizziness and Chest pain Follow Up Care Test Results: Test results from this visit will be discussed in further detail at your follow-up appointment, if applicable. Discharge Plan Admission Admit Date/Time: 10/03/20 12:21 Primary Reason for Your Visit: Acute on chronic respiratory failure Attending Provider: Félix Blue Primary Care Provider: Yair Hart Consulting Providers: Bandar Britt ; Mark Pérez ; Randi Araiza NP Instructions Additional Instructions / Restrictions: Continue 5 L oxygen nasal cannula at rest and 10 L of oxygen with ambulation. Discharge Orders/Prescriptions Prescriptions: New prednisone 10 mg tablet See Taper mg PO DAILY Qty: 30 RF: 0 amoxicillin-pot clavulanate [Augmentin] 875-125 mg tablet 1 tab PO BID Qty: 4 RF: 0 Continued (DME) PEP device See Rx Instructions .ROUTE .MEDSUPPLY Qty: 1 RF: 0 amlodipine 10 MG tablet 10 mg PO DAILY RF: 0 ipratropium bromide 42 MCG spray,non-aerosol 2 spray NASAL BID PRN PRN (Reason: nasal drainage) RF: 0 albuterol sulfate 1 INHALER inhaler 1 - 2 puff inhalation Q4H PRN PRN (Reason: Shortness Of Breath) Qty: 1 RF: 0 metformin 500 MG tablet 500 mg PO BIDCM Qty: 0 RF: 0 metoprolol succinate 100 MG tablet 50 mg PO DAILY Qty: 0 RF: 0 lisinopril 40 MG tablet 10 mg PO DAILY RF: 0 sertraline 25 mg tablet 25 mg PO QHS RF: 0 prednisone 10 mg tablet 10 mg PO DAILY RF: 0 Changed furosemide 20 MG tablet 20 mg PO DAILY Qty: 0 RF: 0 Referrals / Follow Up: Yair Hart MD [Primary Care Provider] - 10/15/20 10:40 am Randi Araiza NP, [employer] [Nurse Practitioner] - Within 1 Week Disposition Disposition (needs filled in before D/C Order can be placed): Home Health Service
--- NOTE | 2020-10-08 12:05 | DS.PCM_ITS ---
Documented by User: Elida Campos NP, NETWORK OPERATIONS ANALYST-C 10/08/20 12:10 Providers Date of Admission: 10/03/20 Date of Discharge: 10/08/20 Primary Care Physician: Dr. Yair Hart MD Consultations 10/04/20 07:33 Consult: Territory Business Manager / Pulmonary Medicine Routine Consulting Provider: [facility] Reason for Consult: resp failure EMERGENT Consult: No MD Notified: Yes Date Notified:: 10/04/20 Time Notified: 07:33 Method of Notification: Verbal Reason For Visit: SEVERE SEPSIS, PNA, HYPOXIC RESPIRATORY FAILURE Diagnosis Discharge Diagnosis (1) Acute on chronic respiratory failure with hypoxemia: Status: Chronic Code(s): J96.21 - Acute and chronic respiratory failure with hypoxia Medications at Discharge Home Medications amlodipine 10 mg PO DAILY 06/16/18 ipratropium bromide 2 spray NASAL BID PRN PRN 06/16/18 albuterol sulfate 1 - 2 puff INHALATION Q4H PRN PRN #1 inhaler 06/19/18 metformin 500 mg PO BIDCM #0 04/20/19 metoprolol succinate 50 mg PO DAILY #0 04/20/19 lisinopril 10 mg PO DAILY 05/06/19 PEP device #1 ea 04/04/20 prednisone 10 mg PO DAILY 10/03/20 sertraline 25 mg PO QHS 10/03/20 amoxicillin-pot clavulanate [Augmentin] 1 tab PO BID #4 tab 10/08/20 furosemide 20 mg PO DAILY #0 tab 10/08/20 prednisone See Taper PO DAILY #30 tab 10/08/20 Hospital Course Operations None Procedures 2-D Echocardiogram Summary of Care Provided Minutes Spent on Discharge: 35 Hospital Course: Patient is a 85-year-old male admitted 10/03/2020 due to shortness of breath. 1. Acute on chronic hypoxic respiratory failure secondary to community-acquired pneumonia, acute on chronic heart failure with preserved ejection fraction, complicated by underlying unspecified interstitial lung disease-CTA without PE. IV Unasyn and IV azithromycin during admission. Discharged on oral Augmentin to complete course. Continue home inhaler regimen. IV Solu-Medrol with transition to prednisone taper at discharge. Autoimmune work-up completed, follow-up with pulmonary medicine for results/further management. Echocardiogram demonstrates an EF of 60%, stage II diastolic dysfunction, mild mitral valve insufficiency, pulmonary artery systolic pressure 70 mmHg. Transitioned to oral Lasix 20 mg daily. Patient previously on as needed Lasix only. Patient will require 5 L nasal cannula at rest and 10 L with ambulation supplemental oxygen. He is ambulatory in the home. Follow-up with PCP and pulmonary medicine in 1 week. 2. Sepsis secondary to community-acquired pneumonia-treatment per above. Antibiotic stop date 10/10/2020. 3. New onset atrial fibrillation-converted to sinus rhythm. Patient appears to be in A. fib on telemetry on admission however repeat EKG showed a sinus rhythm. Echocardiogram as noted above. Continue home metoprolol regimen. Has not had further recurrence of A. fib. Discussed anticoagulation however given questionable A. fib as well as risk versus benefits, anticoagulation was not initiated. 4. Hypertension-stable, on amlodipine, lisinopril, metoprolol. 5. Type 2 diabetes mellitus- continue home oral regimen. 6. Depression-on sertraline. 7. Severe protein calorie malnutrition-dietitian consult during admission. Physical Exam Const alert, oriented x3 and no apparent distress Orientation / Consciousness: awake, oriented to person, oriented to place and oriented to time HEENT normocephalic and moist oral mucous membranes Eyes PERRL, EOMs intact bilaterally and conjunctivae normal Neck no lymphadenopathy Resp Auscultation: rales and diminished lung sounds Cardio regular rate, regular rhythm and no murmurs Peripheral Pulses: pulses 2+ throughout GI normal to inspection, nondistended, normoactive bowel sounds, non-tender and non-distended Extremity normal to inspection Skin no rashes or lesions noted Lesions: no lesions Rashes: no rashes Trauma: no lacerations or abrasions Neuro CN's II-XII intact bilaterally, no focal motor deficits, no sensory deficits noted and deep tendon reflexes 2+ bilaterally Psych mental status grossly normal and affect normal Patient seen and examined prior to discharge. Physical assessment as noted above. Patient is stable for discharge with follow up recommendations as noted above. This patient was seen by LUCI Garza under the supervision of Dr. Blue. ABG / Lab / Microbiology Data Result Diagrams: 10/08/20 06:05 10/08/20 06:05 Laboratory: Laboratory Results - last 24 hr 10/04/20 10/04/20 10/07/20 08:45 08:45 11:07 WBC RBC Hgb Hct MCV MCH MCHC RDW Std Deviation RDW Coeff of James Plt Count MPV Immature Gran % (Auto) Neut % (Auto) Lymph % (Auto) Ector % (Auto) Eos % (Auto) Baso % (Auto) Absolute Neuts (auto) Absolute Lymphs (auto) Nucleated RBC % Differential Comment Sodium Potassium Chloride Carbon Dioxide Anion Gap BUN Creatinine Estim Creat Clear Calc Est GFR (MDRD) Af Amer Est GFR (MDRD) Non-Af BUN/Creatinine Ratio Glucose Calcium Cycl Citrul Peptide IgG 25 H c-ANCA Antibody 1:20 H Atypical p-ANCA <1:20 p-ANCA Antibody <1:20 REBECCA-1 Antibody Not Reportable SS-A/Ro IgG Antibody Not Reportable SS-B/La IgG Antibody Not Reportable Sm (Agrawal) Antibody Not Reportable CHANGE ROOM ATTENDANT Antibody Not Reportable Scl-70 Scleroderma Ab Not Reportable Double Strand DNA Ab Not Reportable Centromere B Antibody Not Reportable POC Glucose 284 H 10/07/20 10/07/20 10/08/20 17:08 21:57 06:05 WBC 12.0 H RBC 3.81 L Hgb 11.8 L Hct 37.3 L MCV 97.9 H MCH 31.0 MCHC 31.6 L RDW Std Deviation 51.9 H RDW Coeff of James 14.5 Plt Count 293 MPV 9.6 Immature Gran % (Auto) 1.300 H Neut % (Auto) 91.1 H Lymph % (Auto) 4.6 L Ector % (Auto) 2.8 Eos % (Auto) 0.0 Baso % (Auto) 0.2 Absolute Neuts (auto) 11.0 H Absolute Lymphs (auto) 0.55 L Nucleated RBC % 0 Differential Comment SCANNED Sodium Potassium Chloride Carbon Dioxide Anion Gap BUN Creatinine Estim Creat Clear Calc Est GFR (MDRD) Af Amer Est GFR (MDRD) Non-Af BUN/Creatinine Ratio Glucose Calcium Cycl Citrul Peptide IgG c-ANCA Antibody Atypical p-ANCA p-ANCA Antibody REBECCA-1 Antibody SS-A/Ro IgG Antibody SS-B/La IgG Antibody Sm (Agrawal) Antibody CHANGE ROOM ATTENDANT Antibody Scl-70 Scleroderma Ab Double Strand DNA Ab Centromere B Antibody POC Glucose 351 H 359 H 10/08/20 10/08/20 10/08/20 06:05 06:50 10:28 WBC RBC Hgb Hct MCV MCH MCHC RDW Std Deviation RDW Coeff of James Plt Count MPV Immature Gran % (Auto) Neut % (Auto) Lymph % (Auto) Ector % (Auto) Eos % (Auto) Baso % (Auto) Absolute Neuts (auto) Absolute Lymphs (auto) Nucleated RBC % Differential Comment Sodium 140 Potassium 3.6 Chloride 100 Carbon Dioxide 33.0 H Anion Gap 7 BUN 43 H Creatinine 1.28 Estim Creat Clear Calc 42.77 Est GFR (MDRD) Af Amer 69 Est GFR (MDRD) Non-Af 57 L BUN/Creatinine Ratio 33.6 H Glucose 221 H Calcium 8.5 Cycl Citrul Peptide IgG c-ANCA Antibody Atypical p-ANCA p-ANCA Antibody REBECCA-1 Antibody SS-A/Ro IgG Antibody SS-B/La IgG Antibody Sm (Agrawal) Antibody CHANGE ROOM ATTENDANT Antibody Scl-70 Scleroderma Ab Double Strand DNA Ab Centromere B Antibody POC Glucose 215 H 253 H Microbiology: Microbiology 10/03/20 10:25 Blood Culture - Final Blood Culture (Wb) - Anticubital Left No growth in 5 days. 10/03/20 10:02 Blood Culture - Final Blood Culture (Wb) - Anticubital Right No growth in 5 days. Microbiology 10/03/20 10:25 Blood Culture (Wb) - Anticubital Left Blood Culture - Final No growth in 5 days. 10/03/20 10:02 Blood Culture (Wb) - Anticubital Right Blood Culture - Final No growth in 5 days. 10/03/20 11:20 Urine, Clean Catch Urine Culture - Final Mixed Gram Positive Organisms 10/04/20 23:00 Urine, Random Legionella Antigen - Final 10/04/20 23:00 Urine, Random Streptococcus pneumoniae Antigen (M - Final 10/03/20 10:54 Mucosa - Nasopharyngeal SARS-CoV-2 Antigen (Rapid) - Final D/C Instructions Discharge Diet: No restrictions Discharge Activity: Return to Normal Activity Call your doctor if you observe: Shortness of breath, Dizziness and Chest pain Meaningful Use Info Meaningful Use Diagnoses (Choose all that apply): None applicable Discharge Plan Admission Admit Date/Time: 10/03/20 12:21 Primary Reason for Your Visit: Acute on chronic respiratory failure Attending Provider: Félix Blue Primary Care Provider: Yair Hart Consulting Providers: Bandar Britt ; Mark Pérez ; Randi Araiza NETWORK OPERATIONS ANALYST Instructions Additional Instructions / Restrictions: Continue 5 L oxygen nasal cannula at rest and 10 L of oxygen with ambulation. Discharge Orders/Prescriptions Prescriptions: New prednisone 10 mg tablet See Taper mg PO DAILY Qty: 30 RF: 0 amoxicillin-pot clavulanate [Augmentin] 875-125 mg tablet 1 tab PO BID Qty: 4 RF: 0 Continued (DME) PEP device See Rx Instructions .ROUTE .MEDSUPPLY Qty: 1 RF: 0 amlodipine 10 MG tablet 10 mg PO DAILY RF: 0 ipratropium bromide 42 MCG spray,non-aerosol 2 spray NASAL BID PRN PRN (Reason: nasal drainage) RF: 0 albuterol sulfate 1 INHALER inhaler 1 - 2 puff inhalation Q4H PRN PRN (Reason: Shortness Of Breath) Qty: 1 RF: 0 metformin 500 MG tablet 500 mg PO BIDCM Qty: 0 RF: 0 metoprolol succinate 100 MG tablet 50 mg PO DAILY Qty: 0 RF: 0 lisinopril 40 MG tablet 10 mg PO DAILY RF: 0 sertraline 25 mg tablet 25 mg PO QHS RF: 0 prednisone 10 mg tablet 10 mg PO DAILY RF: 0 Changed furosemide 20 MG tablet 20 mg PO DAILY Qty: 0 RF: 0 Referrals / Follow Up: Yair Hart MD [Primary Care Provider] - 10/15/20 10:40 am Randi Araiza NP, NETWORK OPERATIONS ANALYST-C [Nurse Practitioner] - 10/18/20 12:45 pm Disposition Disposition (needs filled in before D/C Order can be placed): Home Health Service Documented by User: Dr. Félix Blue DO 10/08/20 14:41 Providers Date of Admission: 10/03/20 Reason For Visit: SEVERE SEPSIS, PNA, HYPOXIC RESPIRATORY FAILURE Medications at Discharge Home Medications amlodipine 10 mg PO DAILY 06/16/18 ipratropium bromide 2 spray NASAL BID PRN PRN 06/16/18 albuterol sulfate 1 - 2 puff INHALATION Q4H PRN PRN #1 inhaler 06/19/18 metformin 500 mg PO BIDCM #0 04/20/19 metoprolol succinate 50 mg PO DAILY #0 04/20/19 lisinopril 10 mg PO DAILY 05/06/19 PEP device #1 ea 04/04/20 prednisone 10 mg PO DAILY 10/03/20 sertraline 25 mg PO QHS 10/03/20 amoxicillin-pot clavulanate [Augmentin] 1 tab PO BID #4 tab 10/08/20 furosemide 20 mg PO DAILY #0 tab 10/08/20 prednisone See Taper PO DAILY #30 tab 10/08/20 Hospital Course Summary of Care Provided Minutes Spent on Discharge: 32 Hospital Course: 85-year-old male presents with shortness of breath. Patient had acute on chronic hypoxic respiratory failure secondary to community-acquired pneumonia, acute on chronic heart failure preserved ejection fraction but complicated by underlying unspecified interstitial lung disease. Patient was started on ampicillin/sulbactam and azithromycin. Patient transition over to amoxicillin/clavulanic acid upon discharge. Patient was on IV methylprednisolone in the hospital and transition over to a prednisone taper upon discharge. Patient was seen in consultation by pulmonology. 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 Patient will follow up pulmonary as outpatient. Patient had issues in regards to requiring high flow oxygen with activity. Today, he was stable at 5 L nasal cannula at rest and I was able to tolerate 10 L with ambulation with supplemental oxygen. Patient will have a high flow condenser at home. Patient be discharged in stable condition. Physical Exam Const alert Resp normal respiratory effort and clear to auscultation bilaterally Cardio regular rate, regular rhythm, S1 normal heart sound and S2 normal heart sound GI normal to inspection, nondistended, normoactive bowel sounds, non-tender and non-distended ABG / Lab / Microbiology Data Result Diagrams: 10/08/20 06:05 10/08/20 06:05 Discharge Plan Admission Admit Date/Time: 10/03/20 12:21 Primary Reason for Your Visit: Acute on chronic respiratory failure Attending Provider: Félix Blue Primary Care Provider: Yair Hart Consulting Providers: Bandar Britt ; Mark Pérez ; Randi Araiza NETWORK OPERATIONS ANALYST Instructions Additional Instructions / Restrictions: Continue 5 L oxygen nasal cannula at rest and 10 L of oxygen with ambulation. Discharge Orders/Prescriptions Prescriptions: New prednisone 10 mg tablet See Taper mg PO DAILY Qty: 30 RF: 0 amoxicillin-pot clavulanate [Augmentin] 875-125 mg tablet 1 tab PO BID Qty: 4 RF: 0 Continued (DME) PEP device See Rx Instructions .ROUTE .MEDSUPPLY Qty: 1 RF: 0 amlodipine 10 MG tablet 10 mg PO DAILY RF: 0 ipratropium bromide 42 MCG spray,non-aerosol 2 spray NASAL BID PRN PRN (Reason: nasal drainage) RF: 0 albuterol sulfate 1 INHALER inhaler 1 - 2 puff inhalation Q4H PRN PRN (Reason: Shortness Of Breath) Qty: 1 RF: 0 metformin 500 MG tablet 500 mg PO BIDCM Qty: 0 RF: 0 metoprolol succinate 100 MG tablet 50 mg PO DAILY Qty: 0 RF: 0 lisinopril 40 MG tablet 10 mg PO DAILY RF: 0 sertraline 25 mg tablet 25 mg PO QHS RF: 0 prednisone 10 mg tablet 10 mg PO DAILY RF: 0 Changed furosemide 20 MG tablet 20 mg PO DAILY Qty: 0 RF: 0 Referrals / Follow Up: Yair Hart MD [Primary Care Provider] - 10/15/20 10:40 am Randi Araiza NP, NETWORK OPERATIONS ANALYST-C [Nurse Practitioner] - 10/18/20 12:45 pm Disposition Disposition (needs filled in before D/C Order can be placed): Home Health Service Visit Charges Inpatient E&M: [id number] Disch Hosp
--- NOTE | 2020-10-08 16:23 | NURSING ---
reviewed dc instructions with over ohone
--- NOTE | 2020-10-09 15:26 | CASEMGMT ---
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 [place] LEXY ANDRE Admission dx: Severe sepsis, pna, hypoxic resp failure
--- NOTE | 2020-10-10 09:28 | CASEMGMT ---
Message from Alla at [facility] and she states they are not doing start of care as declined HHC but pt was agreeable. Meghan PUGH CM
--- NOTE | 2020-10-10 14:12 | CASEMGMT ---
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 Attempted to reach pt's at this time, as well. No answer. Non-identifying VM received. Non-descript VM left requesting return call to this RN CM if there are any questions or concerns. Phone number provided. Cuong NIXN RN CM
== END 2020-10-08 17:04 | disposition home health service (06) | DRG 871 ==
LOC: ED 10:10 → PCU 13:21
PROVIDERS: Internal Medicine Critical Care Medicine; Nurse Practitioner Family; Admitting Provider Internal Medicine; Emergency Provider Student in an Organized Health Care Education/Training Program; PCP Internal Medicine
DX: A41.9 Sepsis, unspecified organism (principal); J18.9 Pneumonia, unspecified organism; I50.33 Acute on chronic diastolic (congestive) heart failure; J96.21 Acute and chronic respiratory failure with hypoxia; E43 Unspecified severe protein-calorie malnutrition; I11.0 Hypertensive heart disease with heart failure; I48.91 Unspecified atrial fibrillation; E11.9 Type 2 diabetes mellitus without complications; F32.9 Major depressive disorder, single episode, unspecified; Z99.81 Dependence on supplemental oxygen; Z79.51 Long term (current) use of inhaled steroids; Z79.84 Long term (current) use of oral hypoglycemic drugs; Z79.899 Other long term (current) drug therapy; Z87.891 Personal history of nicotine dependence; J84.10 Pulmonary fibrosis, unspecified; I27.20 Pulmonary hypertension, unspecified; Z68.24 Body mass index [BMI] 24.0-24.9, adult
CPT/HCPCS: 36415; 71045; 71275; 80048; 80053; 81001; 82962; 83605; 83880; 84145; 85025; 85379; 85610; 85730; 86038; 86200; 86225; 86235; 86256; 86431; 87040; 87086; 87088; 87426; 87449; 92610; 93005; 93306; 94640; 97110; 97162; 97166; 97530; 97535; 99251; 99285; J7040; Q9957; Q9967; A4216; G0463; J0295; J1940

== ENCOUNTER 2020-11-01 13:17 | Inpatient (IN) | payer MEDICARE, SELFPAY ==
[2020-10-18 09:43] VITALS: BMI 26.6
[2020-11-01] VITALS (23 sets, daily range): BP systolic 80–110; BP diastolic 51–65; PULSE 46–70; RESP 12–27; TEMP 34.8–36.9; O2SAT 88–98; BMI 26.7; BMI 26.9
--- NOTE | 2020-11-01 13:27 | EKG12_ITS ---
Test Reason : IRREGULAR BEAT Blood Pressure : / mmHG Vent. Rate : 058 BPM Atrial Rate : 058 BPM P-R Int : 180 ms QRS Dur : 096 ms QT Int : 456 ms P-R-T Axes : 002 012 009 degrees QTc Int : 447 ms Sinus bradycardia with Premature atrial complexes Otherwise normal ECG Confirmed by AMAN BLACK, TRENT ([id number]), content editor ILENE ABBOTT ([id number]) on 11/04/2020 11:13:20 A M Referred By: GONZALO Confirmed By:ANOOP NEWTON MD
[2020-11-01] MEDS: 0.9% Normal Saline 1,000 ML 150 ML IV (13:38)
[2020-11-01] MEDS: MethylPREDNISolone 125 MG/2 ML Vial IV (13:38)
[2020-11-01] MEDS: Ipratropium/Albuterol Sulfate 3 ML AMPUL.NEB INHALATION ×2 (13:38→18:50)
--- NOTE | 2020-11-01 13:46 | ED.VIS.DYS ---
HPI History of Present Illness Chief Complaint: Shortness of Breath Informant: patient and EMS Onset/Context/Timing Onset: Today Context: gradual Timing: Continuous Quality: Positive for Dyspnea on exertion Current Severity: Severe Maximum Severity: Severe Worsened by: Coughing Relieved by: Nothing Associated Symptoms cough Narrative Narrative: Patient is an 85-year-old male medical history significant for pulmonary fibrosis, recent admission for sepsis with pneumonia, chronic oxygen dependence for chronic respiratory failure, who presents to the emergency department with increasing shortness of breath. History is hard to gather from the patient given his significant illness. He was admitted about a month ago. At that time, he was found to have pneumonia and was rheumatoid positive. Patient was treated with antibiotics and steroids and discharged home. He has had a follow-up with pulmonology. The patient is on 8 to 10 L of oxygen at rest. He has been having increasing dyspnea and today became more confused. [facility] Medical History (Updated 11/01/20 @ 15:04 by Keiko Espazra) Acute on chronic blood loss anemia Acute respiratory failure with hypoxia Anemia Community acquired pneumonia Depression Hearing loss, left Hearing loss, right HTN (hypertension) Hypoxemia New onset atrial fibrillation On home oxygen therapy Pulmonary fibrosis Sepsis Septic shock Skin cancer Type 2 diabetes mellitus Upper GI bleed Home Medications amlodipine 10 mg PO DAILY 06/16/18 [History Last Taken 11/01/20] ipratropium bromide 2 spray NASAL BID PRN PRN 06/16/18 [History Last Taken 06/16/18] albuterol sulfate 1 - 2 puff INHALATION Q4H PRN PRN #1 inhaler 06/19/18 [Rx Last Taken Unknown] PEP device #1 ea 04/04/20 [Rx Last Taken Unknown] prednisone 10 mg tablet 10 mg PO DAILY #90 tab 10/18/20 [Rx Last Taken 11/01/20] fluticasone propionate 2 spray INTRANASAL DAILY PRN PRN 11/01/20 [History Last Taken Unknown] furosemide 20 mg PO DAILY 11/01/20 [History Last Taken 11/01/20] lisinopril 10 mg PO DAILY 11/01/20 [History Last Taken 11/01/20] metformin 500 mg PO BIDCM 11/01/20 [History Last Taken 11/01/20] metoprolol succinate 50 mg PO DAILY 11/01/20 [History Last Taken 11/01/20] sertraline 50 mg PO QHS 11/01/20 [History Last Taken 10/31/20] Allergy/AdvReac Type Severity Reaction Status Date / Time No Known Allergies Allergy Verified 11/01/20 13:17 Surgical History History of esophagogastroduodenoscopy (EGD) Social History Smoking Status: Former smoker alcohol intake: current details: Occasionally substance use type: does not use ROS ROS ED Review of Systems ROS Unobtainable: due to mental status EXAM Physical Exam Const Vital Signs: 11/01/20 13:24 11/01/20 13:29 11/01/20 13:31 Temperature 98.5 F Temperature Source Temporal Pulse Rate 70 65 Respiratory Rate 27 H 23 H Respiratory Effort Short of Breath Labored Accessory Muscle Use Respiratory Depth Normal Respiratory Pattern Normal Blood Pressure 110/65 104/55 L Blood Pressure Mean 80 71 Pulse Ox 88 90 Oxygen Delivery Method Venturi Mask Bi-pap Bi-pap Oxygen Flow Rate (L/min) 15 Fraction of Inspired Oxygen (FIO2) 80 80 11/01/20 14:31 11/01/20 14:32 11/01/20 14:46 Temperature 96.8 F L 96.8 F L Temperature Source Temporal Temporal Pulse Rate 57 L 60 60 Respiratory Rate 17 26 H 20 H Respiratory Effort Respiratory Depth Respiratory Pattern Blood Pressure 103/61 103/61 103/61 Blood Pressure Mean 75 75 75 Pulse Ox 95 95 96 Oxygen Delivery Method Bi-pap Bi-pap Bi-pap Oxygen Flow Rate (L/min) Fraction of Inspired Oxygen (FIO2) 80 80 80 Positive well nourished and well developed General Appearance ED: well developed HEENT Reports normocephalic, head/scalp atraumatic and moist mucous membranes atraumatic Eyes PERRL and EOMs intact bilaterally Neck no lymphadenopathy and supple General: Negative for tenderness Chest Wall inspection of chest normal Resp Auscultation: diminished lung sounds Cardio regular rate, regular rhythm and no murmurs GI normal to inspection, nondistended, normoactive bowel sounds, non-tender and non-distended Palpation: soft; Negative for tender, guarding or rebound tenderness present Back/Spine no CVA tenderness and normal to inspection Cervical Spine: Negative for cervical spine tenderness Thoracic Spine / Upper Back: Negative for thoracic spinal tenderness Extremity normal to inspection General Extremety ED: Negative for tenderness Neuro CN's II-XII intact bilaterally Neuro Narrative: No focal deficits appreciated. Sensorium / Orientation: alert and lethargic Psych mental status grossly normal Skin no rashes or lesions noted, no wounds and skin turgor normal MDM MDM MDM Narrative Medical decision making narrative: On arrival, the patient is confused but will respond to voice. He was immediately transitioned to BiPAP. Patient was given Solu-Medrol and septic work-up was pursued. Patient's white count is normal. He has mild renal insufficiency. Chest x-ray shows findings consistent with his significant underlying lung disease. I did obtain blood gas. He does have hypercapnia and is acidotic. I had a long conversation with the patient's at the bedside. He would never want to be intubated. He does not want CPR. At this point, we are going to try maximum therapy without anything invasive. He has been given steroids and covered with broad-spectrum antibiotics. His is open that if he is not improving to start with comfort measures. At this point, the patient will be admitted for respiratory failure with hypercapnia. Impression 1. Acute respiratory failure with hypercapnia and hypoxia 2. Pulmonary fibrosis 3. Delirium. 4. Acute kidney injury Lab Data Attestation: I reviewed the patient's lab results. Labs: Laboratory Results - last 24 hr 11/01/20 11/01/20 11/01/20 13:30 13:30 13:30 WBC 9.0 RBC 4.24 L Hgb 13.1 Hct 44.4 MCV 104.7 H MCH 30.9 MCHC 29.5 L RDW Std Deviation 54.2 H RDW Coeff of James 14.0 Plt Count 287 MPV 10.2 Immature Gran % (Auto) 0.600 Neut % (Auto) 86.1 H Lymph % (Auto) 7.1 L [place] % (Auto) 6.0 Eos % (Auto) 0.1 Baso % (Auto) 0.1 Absolute Neuts (auto) 7.8 H Absolute Lymphs (auto) 0.64 L Nucleated RBC % 0 Sodium 143 Potassium 4.3 Chloride 100 Carbon Dioxide 41.0 H Anion Gap 2 L BUN 42 H Creatinine 1.43 H Estim Creat Clear Calc 34.67 Est GFR (MDRD) Af Amer 60 Est GFR (MDRD) Non-Af 50 L BUN/Creatinine Ratio 29.4 H Glucose 263 H Calcium 10.0 Total Bilirubin 0.20 AST 17 ALT 25 Alkaline Phosphatase 114 Troponin I < 0.015 B-Natriuretic Peptide 98.1 Total Protein 7.2 Albumin 3.0 L Globulin 4.2 Albumin/Globulin Ratio 0.7 L Lipase 135 ABG Data ABG results: ABG 11/01/20 11/01/20 14:19 14:20 Specimen Type ART Cancelled Sample Site L Radial Cancelled pH 7.24 L Cancelled Bicarbonate Actual 38.0 H Cancelled Total CO2 41 Cancelled Base Excess 11 H Cancelled O2 Saturation 94 L Cancelled O2 % 80 Cancelled ABG pCO2 89.6 H* Cancelled ABG pO2 89 Cancelled Isidro Test Positive Cancelled Respiration Rate Cancelled O2 Delivery Device BiPAP Cancelled Liter Flow Cancelled Minute Volume Cancelled Vent Mode Cancelled Inspiratory Time Cancelled Expiratory Time Cancelled Tidal Volume Cancelled Mean Airway Pressure Cancelled POC PEEP Cancelled Peak Inspir Pressure Cancelled POC Pressure Suppt Cancelled Pressure Control Cancelled Pressure High Cancelled Pressure Low Cancelled Time High Cancelled Time Low Cancelled EPAP Cancelled IPAP Cancelled Blood Gas Comments Cancelled Crit Call To/Read Back Yes Cancelled Blood Gas Notified Whom dr lance Cancelled Blood Gas Notified Time Cancelled Clinical Comments 28/12 Cancelled Radiography Diagnostic Testing: Radiology Impression Chest X-Ray 11/01/20 14:24 IMPRESSION: Progressive bilateral nodular alveolar infiltrates in both lungs. Small pleural effusions slightly more prominent on the left side. Metastatic bronchioloalveolar carcinoma should be ruled out. Electronically Signed: Anthony Bowling MD at 14:44 EDT , Service support , Critical Care Time Critical Care Time: Yes Critical care time (excluding procedures): 30-74 minutes (40), Discussing w/Patient &/or Family/Program Research Specialist, Discussing w/Consultants, Arranging Admission or Transfer and Performing Direct Patient Care at Bedside (Patient was placed on BiPAP. I had a prolonged discussion with DNR status with the .) Discharge Plan Triage Chief Complaint: Shortness of Breath ED Provider: Rosendo Lance Dx/Rx/DC Orders Prescriptions: No Action (DME) PEP device See Rx Instructions .ROUTE .MEDSUPPLY Qty: 1 RF: 0 prednisone 10 mg tablet 10 mg PO DAILY Qty: 90 RF: 3 amlodipine 10 MG tablet 10 mg PO DAILY RF: 0 ipratropium bromide 42 MCG spray,non-aerosol 2 spray NASAL BID PRN PRN (Reason: nasal drainage) RF: 0 albuterol sulfate 1 INHALER inhaler 1 - 2 puff inhalation Q4H PRN PRN (Reason: Shortness Of Breath) Qty: 1 RF: 0 sertraline 50 mg tablet 50 mg PO QHS RF: 0 metoprolol succinate 50 mg tablet extended release 24 hr 50 mg PO DAILY RF: 0 fluticasone propionate 50 mcg/actuation spray,suspension 2 spray intranasal DAILY PRN PRN (Reason: allergies) RF: 0 furosemide 20 MG tablet 20 mg PO DAILY RF: 0 lisinopril 10 mg tablet 10 mg PO DAILY RF: 0 metformin 500 MG tablet 500 mg PO BIDCM RF: 0 Primary Care Provider: Yair Hart
[2020-11-01 13:51] LABS: Absolute Lymphocyte Count 0.64 X10^3/uL (0.83-4.51); Absolute Neutrophil Count 7.8 X10^3/uL (2.0-7.7); Basophil# 0.01 X10^3/uL; Basophil% 0.1 % (0-1); Eosinophil# 0.01 X10^3/uL; Eosinophils% 0.1 % (0-5); Hematocrit 44.4 % (40-54); Hemoglobin 13.1 g/dL (13.0-16.5); Lymphocyte # 0.64 X10^3/ul (0.83-4.51); Lymphocyte % 7.1 % (19-41); Mean Corp Hgb Conc 29.5 g/dL (32-36); Mean Corpuscular Hgb 30.9 pg (27.0-32.0); Mean Corpuscular Volume 104.7 fL (80-94); Mean Platelet Vol. 10.2 fl (6.2-12.0); Monocyte# 0.54 X10^3/uL; NRBC Flagged by Analyzer 0 % (0-5); Neutrophil # 7.75 X10^3/uL (2.7-7.7); Neutrophil % 86.1 % (47-70); Platelet Count 287 K/mm3 (150-450); RBC Distribution Width SD 54.2 fl (35.1-43.9); Red Blood Count 4.24 M/mm3 (4.6-6.2)
[2020-11-01 14:03] LABS: ALB/GLOB Ratio 0.7 RATIO (0.9-2.4); AST(SGOT) 17 U/L (15-37); Alanine Aminotransfer ALT/SGPT 25 U/L (16-61); Alkaline Phosphatase 114 U/L (45-117); Anion Gap 2 (5-15); BUN 42 mg/dL (7-18); BUN/Creat Ratio 29.4 RATIO (10-20); Chloride 100 mmol/L (98-107); Creatinine, Serum 1.43 mg/dL (0.70-1.30); EST Glomerular Filtration Rate 50 mL/min (>60); Est Glom Filt Rate - Afr Amer 60 mL/min (>60); Estimated Creatinine Clearance 34.67 ml/min; Globulin 4.2 g/dL (2.2-4.2); Glucose 263 mg/dL (74-106); Lipase 135 U/L (73-393); Potassium 4.3 mmol/L (3.5-5.1); Protein, Total 7.2 g/dL (6.4-8.2); Sodium Level 143 mmol/L (136-145)
[2020-11-01 14:18] LABS: BNP,B-Type NATRIURETIC PEPTIDE 98.1 pg/mL (0-100)
--- NOTE | 2020-11-01 14:24 | RAD_ITS ---
STUDY: X-RAY CHEST REASON FOR EXAM: Male, 85 years old. Sob TECHNIQUE: Single AP portable view of the chest. COMPARISON: Comparison is made with prior study dated 10/03/2020. FINDINGS: EKG electrodes are seen. Once again, there is diffuse bilateral nodular alveolar infiltrates in both lungs. These have progressed as compared to prior study. There is also evidence of infiltrate in the left lower lobe. Metastatic bronchioloalveolar carcinoma should be ruled out. Blunting of both costophrenic angles slightly more prominent on the left side. Normal size heart. Normal mediastinum and bennett. Normal visualized pulmonary arteries. Normal visualized aortic arch and descending thoracic aorta. Normal visualized thoracic spine. Normal visualized ribs, clavicles, and shoulders. There is no demonstrated abnormality of the visualized soft tissue structures of the upper abdomen. RAD/Chest 1 View (Portable) IMPRESSION: Progressive bilateral nodular alveolar infiltrates in both lungs. Small pleural effusions slightly more prominent on the left side. Metastatic bronchioloalveolar carcinoma should be ruled out. Electronically Signed: Anthony Bowling MD at 14:44 EDT , Service support ,
[2020-11-01 14:25] LABS: Allen Test Positive; Base Excess 11 mmol/L (-2 to +2); Blood Gas Specimen Type ART; Comment 14/8; FI02 80; O2 Delivery Device BiPAP; PO2 89 mmHG (75-100); SITE L Radial; SO2 94 % (95-99); Total Carbon Dioxide 41 mmol/L; pCO2 89.6 mmHg (35-45); pH 7.24 (7.35-7.45)
--- NOTE | 2020-11-01 14:25 | CPS ---
Critical values on ABG. Dr. Acharya notified of critical values.
[2020-11-01] MEDS: 0.9% Normal Saline 1,000 ML 999 ML IV (15:00)
--- NOTE | 2020-11-01 15:26 | HP.PCM_ITS ---
Documented by User: LUCI Coreas 11/01/20 15:44 HPI - General HPI Narrative JOAN HOWARD, is a 85 M who presents today with increased shortness of breath and confusion. Patient's reports that patient has been more confused today with increasing shortness of breath. Patient is confused and restless at this time. Patient has a history that includes chronic respiratory failure with hypoxemia and hypercapnia, postinflammatory pulmonary fibrosis and unspecified interstitial lung disease. [facility] Medical History Acute on chronic blood loss anemia Acute respiratory failure with hypoxia Anemia Community acquired pneumonia Depression Hearing loss, left Hearing loss, right HTN (hypertension) Hypoxemia New onset atrial fibrillation On home oxygen therapy Pulmonary fibrosis Sepsis Septic shock Skin cancer Type 2 diabetes mellitus Upper GI bleed Home Medications amlodipine 10 mg PO DAILY 06/16/18 [History Last Taken 11/01/20] ipratropium bromide 2 spray NASAL BID PRN PRN 06/16/18 [History Last Taken 06/16/18] albuterol sulfate 1 - 2 puff INHALATION Q4H PRN PRN #1 inhaler 06/19/18 [Rx Last Taken Unknown] PEP device #1 ea 04/04/20 [Rx Last Taken Unknown] prednisone 10 mg tablet 10 mg PO DAILY #90 tab 10/18/20 [Rx Last Taken 11/01/20] fluticasone propionate 2 spray INTRANASAL DAILY PRN PRN 11/01/20 [History Last Taken Unknown] furosemide 20 mg PO DAILY 11/01/20 [History Last Taken 11/01/20] lisinopril 10 mg PO DAILY 11/01/20 [History Last Taken 11/01/20] metformin 500 mg PO BIDCM 11/01/20 [History Last Taken 11/01/20] metoprolol succinate 50 mg PO DAILY 11/01/20 [History Last Taken 11/01/20] sertraline 50 mg PO QHS 11/01/20 [History Last Taken 10/31/20] Allergy/AdvReac Type Severity Reaction Status Date / Time No Known Allergies Allergy Verified 11/01/20 13:17 Surgical History History of esophagogastroduodenoscopy (EGD) Social History Smoking Status: Former smoker alcohol intake: current details: Occasionally substance use type: does not use ROS Review of Systems ROS Unobtainable: due to mental status Vital Signs Vital Signs Vital Signs: 11/01/20 13:24 11/01/20 13:25 11/01/20 13:29 Temperature 98.5 F Temperature Source Temporal Pulse Rate 70 68 Respiratory Rate 27 H 25 H Respiratory Effort Short of Breath Labored Accessory Muscle Use Respiratory Depth Normal Respiratory Pattern Tachypnea Normal Blood Pressure 110/65 Blood Pressure Mean 80 Pulse Ox 88 93 Oxygen Delivery Method Venturi Mask Bi-pap Oxygen Flow Rate (L/min) 15 Fraction of Inspired Oxygen (FIO2) 80 80 11/01/20 13:31 11/01/20 13:38 11/01/20 14:31 Temperature Temperature Source Pulse Rate 65 62 57 L Respiratory Rate 23 H 20 H 17 Respiratory Effort Respiratory Depth Respiratory Pattern Tachypnea Blood Pressure 104/55 L 103/61 Blood Pressure Mean 71 75 Pulse Ox 90 95 Oxygen Delivery Method Bi-pap Bi-pap Oxygen Flow Rate (L/min) Fraction of Inspired Oxygen (FIO2) 80 80 11/01/20 14:32 11/01/20 14:46 11/01/20 15:17 Temperature 96.8 F L 96.8 F L Temperature Source Temporal Temporal Pulse Rate 60 60 60 Respiratory Rate 26 H 20 H 18 Respiratory Effort Respiratory Depth Respiratory Pattern Normal Blood Pressure 103/61 103/61 Blood Pressure Mean 75 75 Pulse Ox 95 96 94 Oxygen Delivery Method Bi-pap Bi-pap Oxygen Flow Rate (L/min) Fraction of Inspired Oxygen (FIO2) 80 80 75 Weight Weight: 170 lb 10.205 oz Body Mass Index (BMI) 26.7 Physical Exam Const General Appearance: ill appearing, frail and on BiPAP Orientation / Consciousness: confused and disoriented Exam Limitations: altered mental status HEENT normocephalic and head/scalp atraumatic Eyes conjunctivae normal and no scleral icterus Neck no lymphadenopathy, supple and no JVD General: trachea midline Resp Effort and Inspection: symmetric chest movement, tachypneic and labored Auscultation: crackles bilateral and diffuse and diminished lung sounds Cardio regular rate, regular rhythm, S1 normal heart sound and S2 normal heart sound Rate: bradycardia GI normal to inspection, nondistended, normoactive bowel sounds, soft to palpation and non-tender Extremity normal capillary refill and no clubbing, cyanosis or edema General Extremity: no tenderness to palpation of joints or extremities Skin General Skin Exam: no breakdown and turgor normal Lesions: no lesions Rashes: no rashes Neuro moves all extremities Sensorium / Orientation: confused Psych Attitude: agitated Activity / Motor Behavior: restless Results Lab / Micro Data Result Diagrams: 11/01/20 13:30 11/01/20 13:30 Labs: Laboratory Results - last 24 hr 11/01/20 11/01/20 11/01/20 13:30 13:30 13:30 WBC 9.0 RBC 4.24 L Hgb 13.1 Hct 44.4 MCV 104.7 H MCH 30.9 MCHC 29.5 L RDW Std Deviation 54.2 H RDW Coeff of James 14.0 Plt Count 287 MPV 10.2 Immature Gran % (Auto) 0.600 Neut % (Auto) 86.1 H Lymph % (Auto) 7.1 L [place] % (Auto) 6.0 Eos % (Auto) 0.1 Baso % (Auto) 0.1 Absolute Neuts (auto) 7.8 H Absolute Lymphs (auto) 0.64 L Nucleated RBC % 0 Sodium 143 Potassium 4.3 Chloride 100 Carbon Dioxide 41.0 H Anion Gap 2 L BUN 42 H Creatinine 1.43 H Estim Creat Clear Calc 34.67 Est GFR (MDRD) Af Amer 60 Est GFR (MDRD) Non-Af 50 L BUN/Creatinine Ratio 29.4 H Glucose 263 H Calcium 10.0 Total Bilirubin 0.20 AST 17 ALT 25 Alkaline Phosphatase 114 Troponin I < 0.015 B-Natriuretic Peptide 98.1 Total Protein 7.2 Albumin 3.0 L Globulin 4.2 Albumin/Globulin Ratio 0.7 L Lipase 135 Micro: Microbiology 11/01/20 13:30 SARS-CoV-2 Antigen (Rapid) - Final Mucosa - Nose ABG Data ABG results: ABG 11/01/20 11/01/20 14:19 14:20 Specimen Type ART Cancelled Sample Site L Radial Cancelled pH 7.24 L Cancelled Bicarbonate Actual 38.0 H Cancelled Total CO2 41 Cancelled Base Excess 11 H Cancelled O2 Saturation 94 L Cancelled O2 % 80 Cancelled ABG pCO2 89.6 H* Cancelled ABG pO2 89 Cancelled Isdiro Test Positive Cancelled Respiration Rate Cancelled O2 Delivery Device BiPAP Cancelled Liter Flow Cancelled Minute Volume Cancelled Vent Mode Cancelled Inspiratory Time Cancelled Expiratory Time Cancelled Tidal Volume Cancelled Mean Airway Pressure Cancelled POC PEEP Cancelled Peak Inspir Pressure Cancelled POC Pressure Suppt Cancelled Pressure Control Cancelled Pressure High Cancelled Pressure Low Cancelled Time High Cancelled Time Low Cancelled EPAP Cancelled IPAP Cancelled Blood Gas Comments Cancelled Crit Call To/Read Back Yes Cancelled Blood Gas Notified Whom dr welch Cancelled Blood Gas Notified Time Cancelled Clinical Comments 28/12 Cancelled Radiology Impression Chest X-Ray 11/01/20 14:24 IMPRESSION: Progressive bilateral nodular alveolar infiltrates in both lungs. Small pleural effusions slightly more prominent on the left side. Metastatic bronchioloalveolar carcinoma should be ruled out. Electronically Signed: Anthony Bowling MD at 14:44 EDT , Service support , Assessment & Plan Assessment/Plan (1) Acute on chronic respiratory failure with hypoxia and hypercapnia: (2) Interstitial pulmonary disease, unspecified: PLAN: 1. Acute on chronic respiratory failure with hypoxia and hypercapnia -Admit to PCU for cardiac monitoring and continuous pulse ox monitoring -Continuous BiPAP -N.p.o. while on BiPAP -Every 2 hours positioning due to confusion and inability to ambulate at this time -Vital signs per protocol -CBC and BMP daily -Due to n.p.o. status will start patient on maintenance IV fluids normal saline 100 ml/hr -Routine DuoNeb aerosol treatments with as needed albuterol -IV Solu-Medrol every 8 hours -Due to suspicion for aspiration we will continue Zosyn IV -Will consider reinitiation of p.o. medications when patient can tolerate breaks from BiPAP 2. Interstitial pulmonary disease, unspecified -See above 3. Hypertension -Due to n.p.o. status will maintain patient on IV metoprolol and as needed hydralazine -Vital signs per protocol, trend BP and heart rate. Do not give metoprolol if systolic blood pressure is less than 100 or heart rate is less than 55. 4. Diabetes mellitus type 2 -Hold Metformin at this time -AC at bedtime blood sugars with sliding scale insulin ordered 5. Depression -Hold sertraline due to n.p.o. status DVT prophylaxis-Lovenox This patient was seen by LUCI Coreas under the supervision of Dr. Lyn. Documented by User: Dr. Yaw Lyn, DO 11/01/20 16:05 PFS Medical History Acute on chronic blood loss anemia Acute respiratory failure with hypoxia Anemia Community acquired pneumonia Depression Hearing loss, left Hearing loss, right HTN (hypertension) Hypoxemia New onset atrial fibrillation On home oxygen therapy Pulmonary fibrosis Sepsis Septic shock Skin cancer Type 2 diabetes mellitus Upper GI bleed Home Medications amlodipine 10 mg PO DAILY 06/16/18 [History Last Taken 11/01/20] ipratropium bromide 2 spray NASAL BID PRN PRN 06/16/18 [History Last Taken 06/16/18] albuterol sulfate 1 - 2 puff INHALATION Q4H PRN PRN #1 inhaler 06/19/18 [Rx Last Taken Unknown] PEP device #1 ea 04/04/20 [Rx Last Taken Unknown] prednisone 10 mg tablet 10 mg PO DAILY #90 tab 10/18/20 [Rx Last Taken 11/01/20] fluticasone propionate 2 spray INTRANASAL DAILY PRN PRN 11/01/20 [History Last Taken Unknown] furosemide 20 mg PO DAILY 11/01/20 [History Last Taken 11/01/20] lisinopril 10 mg PO DAILY 11/01/20 [History Last Taken 11/01/20] metformin 500 mg PO BIDCM 11/01/20 [History Last Taken 11/01/20] metoprolol succinate 50 mg PO DAILY 11/01/20 [History Last Taken 11/01/20] sertraline 50 mg PO QHS 11/01/20 [History Last Taken 10/31/20] Allergy/AdvReac Type Severity Reaction Status Date / Time No Known Allergies Allergy Verified 11/01/20 13:17 Surgical History History of esophagogastroduodenoscopy (EGD) Social History Smoking Status: Former smoker alcohol intake: current details: Occasionally substance use type: does not use Results Lab / Micro Data Result Diagrams: 11/01/20 13:30 11/01/20 13:30 Charges/Coding Addendum Addendum: Patient was seen and examined independently of Kaitlin Ba, he was seen in the emergency room at [facility] after being brought in by his due to confusion and respiratory distress. Patient had been admitted here approximately 3 weeks ago for respiratory failure and was on 8 L of oxygen at home continuously. Patient has a history of interstitial lung disease-the etiology is unclear but may be due to rheumatoid arthritis. Rylan bernard's blood gas obtained in the emergency room showed him to be hypercapnic, he is presently on BiPAP and he is able only to respond to simple questions. Patient's chest x-ray shows bilateral infiltrates suggestive of interstitial lung disease, patient's rapid Covid test was negative, creatinine was mildly elevated. On examination he appeared unwell. Vital signs as documented. Skin warm and dry and without overt rashes. Neck without JVD, neck was supple, trachea midline, thyroid was normal. Lungs clear bilaterally, decreased breath sounds were noted bilaterally. Heart exam notable for regular rhythm, normal sounds and absence of murmurs, rubs or gallops. Abdomen unremarkable and without evidence of organomegaly, masses, or abdominal aortic enlargement. Bowel sounds are present, abdomen is not distended. Extremities nonedematous, no cyanosis was noted, no clubbing was noted. Neuro: Cranial nerves II through XII are grossly intact, no focal motor deficits were noted, sensation to light touch and pinprick intact, motor exam 5/5 throughout. Psych: Patient is somnolent, he is able to answer some questions appropriately. I talked to his who was in the room at the time of my examination, she feels that the patient should be a DNR CC arrest without intubation-she thinks that is what his wishes would be. I talked briefly with critical care about his admission and they will see him in consultation tomorrow, patient will be admitted to PCU, prognosis is guarded at this time due to patient's severe lung disease. Patient will be treated with IV Solu-Medrol and due to concerns of aspiration with this patient, he will be maintained on Zosyn. I have reviewed Kaitlin Ba's history and physical including her medical assessment and plan of care and endorse it Visit Charges Inpatient E&M: 35972 Init Hosp L3
[2020-11-01 15:27] LABS: Lactic Acid 2.5 mmol/L (0.4-1.9)
--- NOTE | 2020-11-01 15:57 | NURSING ---
117 TERELETSKY RESP FAILURE
[2020-11-01 18:44] LABS: Reflex Lactate? Y
[2020-11-01] MEDS: 0.9% Normal Saline 1,000 ML 100 ML IV (18:48)
[2020-11-01] MEDS: Enoxaparin 40 MG/0.4 ML Syringe SC (18:49)
[2020-11-01 18:56] LABS: Bedside Glucose 205 mg/dL (70-110)
[2020-11-01 20:28] LABS: Lactic Acid 2.8 mmol/L (0.4-1.9)
[2020-11-01 21:16] LABS: Bedside Glucose 231 mg/dL (70-110)
[2020-11-02] VITALS (34 sets, daily range): BP systolic 72–118; BP diastolic 44–65; PULSE 38–76; RESP 12–30; TEMP 28.4–36.2; O2SAT 48–97
[2020-11-02] MEDS: LORazepam 2 MG/ML Syringe IV ×2 (00:11→12:32)
[2020-11-02] MEDS: Ipratropium/Albuterol Sulfate 3 ML AMPUL.NEB INHALATION ×2 (00:43→06:26)
[2020-11-02] MEDS: 0.9% Normal Saline 1,000 ML 999 ML IV (02:36)
--- NOTE | 2020-11-02 03:37 | SEPSISNOTE ---
Sepsis Note Physical Exam/Vitals Subjective: Notified by nurse that patient with hypotension. Objective: Chest X-Ray 11/01/20 14:24 IMPRESSION: Progressive bilateral nodular alveolar infiltrates in both lungs. Small pleural effusions slightly more prominent on the left side. Metastatic bronchioloalveolar carcinoma should be ruled out. Electronically Signed: Anthony Bowling MD at 14:44 EDT , Service support , Temp Pulse Resp BP Pulse Ox 95.9 F L 47 L 18 73/45 L 94 11/02/20 03:00 11/02/20 03:00 11/02/20 03:00 11/02/20 03:00 11/02/20 03:00 11/01/20 11/01/20 11/01/20 21:02 19:01 18:50 WBC RBC Hgb Hct MCV MCH MCHC RDW Std Deviation RDW Coeff of James Plt Count MPV Immature Gran % (Auto) Neut % (Auto) Lymph % (Auto) [place] % (Auto) Eos % (Auto) Baso % (Auto) Absolute Neuts (auto) Absolute Lymphs (auto) Nucleated RBC % Specimen Type Sample Site pH Bicarbonate Actual Total CO2 Base Excess O2 Saturation O2 % ABG pCO2 ABG pO2 Isidro Test Respiration Rate O2 Delivery Device Liter Flow Minute Volume Vent Mode Inspiratory Time Expiratory Time Tidal Volume Mean Airway Pressure POC PEEP Peak Inspir Pressure POC Pressure Suppt Pressure Control Pressure High Pressure Low Time High Time Low EPAP IPAP Blood Gas Comments Crit Call To/Read Back Blood Gas Notified Whom Blood Gas Notified Time Clinical Comments Sodium Potassium Chloride Carbon Dioxide Anion Gap BUN Creatinine Estim Creat Clear Calc Est GFR (MDRD) Af Amer Est GFR (MDRD) Non-Af BUN/Creatinine Ratio Glucose Lactic Acid 2.8 H* Calcium Total Bilirubin AST ALT Alkaline Phosphatase Troponin I B-Natriuretic Peptide Total Protein Albumin Globulin Albumin/Globulin Ratio Lipase POC Glucose 231 H 205 H 11/01/20 11/01/20 11/01/20 14:40 14:20 14:19 WBC RBC Hgb Hct MCV MCH MCHC RDW Std Deviation RDW Coeff of James Plt Count MPV Immature Gran % (Auto) Neut % (Auto) Lymph % (Auto) [place] % (Auto) Eos % (Auto) Baso % (Auto) Absolute Neuts (auto) Absolute Lymphs (auto) Nucleated RBC % Specimen Type Cancelled ART Sample Site Cancelled L Radial pH Cancelled 7.24 L Bicarbonate Actual Cancelled 38.0 H Total CO2 Cancelled 41 Base Excess Cancelled 11 H O2 Saturation Cancelled 94 L O2 % Cancelled 80 ABG pCO2 Cancelled 89.6 H* ABG pO2 Cancelled 89 Isidro Test Cancelled Positive Respiration Rate Cancelled O2 Delivery Device Cancelled BiPAP Liter Flow Cancelled Minute Volume Cancelled Vent Mode Cancelled Inspiratory Time Cancelled Expiratory Time Cancelled Tidal Volume Cancelled Mean Airway Pressure Cancelled POC PEEP Cancelled Peak Inspir Pressure Cancelled POC Pressure Suppt Cancelled Pressure Control Cancelled Pressure High Cancelled Pressure Low Cancelled Time High Cancelled Time Low Cancelled EPAP Cancelled IPAP Cancelled Blood Gas Comments Cancelled Crit Call To/Read Back Cancelled Yes Blood Gas Notified Whom Cancelled dr welch Blood Gas Notified Time Cancelled Clinical Comments Cancelled 28/12 Sodium Potassium Chloride Carbon Dioxide Anion Gap BUN Creatinine Estim Creat Clear Calc Est GFR (MDRD) Af Amer Est GFR (MDRD) Non-Af BUN/Creatinine Ratio Glucose Lactic Acid 2.5 H* Calcium Total Bilirubin AST ALT Alkaline Phosphatase Troponin I B-Natriuretic Peptide Total Protein Albumin Globulin Albumin/Globulin Ratio Lipase POC Glucose 11/01/20 11/01/20 11/01/20 13:30 13:30 13:30 WBC 9.0 RBC 4.24 L Hgb 13.1 Hct 44.4 MCV 104.7 H MCH 30.9 MCHC 29.5 L RDW Std Deviation 54.2 H RDW Coeff of James 14.0 Plt Count 287 MPV 10.2 Immature Gran % (Auto) 0.600 Neut % (Auto) 86.1 H Lymph % (Auto) 7.1 L [place] % (Auto) 6.0 Eos % (Auto) 0.1 Baso % (Auto) 0.1 Absolute Neuts (auto) 7.8 H Absolute Lymphs (auto) 0.64 L Nucleated RBC % 0 Specimen Type Sample Site pH Bicarbonate Actual Total CO2 Base Excess O2 Saturation O2 % ABG pCO2 ABG pO2 Isidro Test Respiration Rate O2 Delivery Device Liter Flow Minute Volume Vent Mode Inspiratory Time Expiratory Time Tidal Volume Mean Airway Pressure POC PEEP Peak Inspir Pressure POC Pressure Suppt Pressure Control Pressure High Pressure Low Time High Time Low EPAP IPAP Blood Gas Comments Crit Call To/Read Back Blood Gas Notified Whom Blood Gas Notified Time Clinical Comments Sodium 143 Potassium 4.3 Chloride 100 Carbon Dioxide 41.0 H Anion Gap 2 L BUN 42 H Creatinine 1.43 H Estim Creat Clear Calc 34.67 Est GFR (MDRD) Af Amer 60 Est GFR (MDRD) Non-Af 50 L BUN/Creatinine Ratio 29.4 H Glucose 263 H Lactic Acid Calcium 10.0 Total Bilirubin 0.20 AST 17 ALT 25 Alkaline Phosphatase 114 Troponin I < 0.015 B-Natriuretic Peptide 98.1 Total Protein 7.2 Albumin 3.0 L Globulin 4.2 Albumin/Globulin Ratio 0.7 L Lipase 135 POC Glucose General: - (Obtunded) Lungs: Clear to auscultation Cardiovascular: Bradycardic Peripheral Pulses: Normal Skin Color: [place] Assessment/Plan Septic shock: Additional normal saline bolus to complete 30 mL/kg bolus of IV fluids. Discussed with family. Patient continues to be a DNR CCA with no intubation. Family wants Levophed drip at high doses peripherally. If we need high dose of Levophed to a central line family wants further discussions. Discussed with family aggressive care versus comfort care with hospice involved. Attestation Sepsis Attestation: Sepsis re-evaluation was performed
--- NOTE | 2020-11-02 03:43 | NURSING ---
Report given to [employer]ER, family aware of transfer. ICU bed 6 ready
--- NOTE | 2020-11-02 03:45 | PCM.PN.BLA ---
Progress Note Advance care planning: Called family and discussed advanced directives as well as CODE STATUS. Explained various CODE STATUS: FULL CODE, DNR CCA, DNR CCA with no intubation, and DNR CC- and what each meant. Family reported that they were told by another physician that if patient's ever gets on the vent he may not be able to come off on the vent. Discussed with family that I agree to that. Family initially wanted to do CPR without intubation. Upon further discussion family elected to keep patient DNR CCA without intubation. Family elected to do low-dose Levophed for chemical resuscitation through peripheral line. If high dose Levophed is required through central line patient's family wants to be notified for further decisions to be made. Initially called patient's Namita Coffey ([phone]) who after discussion requested that I talk to patient's son Mich Coffey who was with her. Patient's handed the phone to patient's son Mich. Fluid resuscitation was ongoing so discussed with patient's son to continue thinking about advance directives. Called later on and upon further discussion the above decision of DNR CCA ; transfer to ICU; and on low-dose pressor was reached. Discussed with family the options of comfort care and with hospice gettinginvolved. Total Time spent on discussion 28 minutes. Procedures Hospitalists Procedures: 43707 Advncd Care Plan 30 Min
[2020-11-02] MEDS: Insulin Lispro 100 UNIT/ML INSULN.PEN SC (05:14)
[2020-11-02] MEDS: 0.9% Normal Saline 1,000 ML 100 ML IV (05:15)
[2020-11-02 05:26] LABS: Bedside Glucose 191 mg/dL (70-110)
[2020-11-02 05:48] LABS: Absolute Lymphocyte Count 0.16 X10^3/uL (0.83-4.51); Basophil# 0.02 X10^3/uL; Basophil% 0.2 % (0-1); Differential Indicated SCAN CRITERIA MET; Hematocrit 41.4 % (40-54); Hemoglobin 12.2 g/dL (13.0-16.5); Lymphocyte # 0.16 X10^3/ul (0.83-4.51); Lymphocyte % 1.9 % (19-41); Mean Corp Hgb Conc 29.5 g/dL (32-36); Mean Corpuscular Hgb 31.5 pg (27.0-32.0); Mean Platelet Vol. 10.8 fl (6.2-12.0); Monocyte# 0.16 X10^3/uL; Monocyte% 1.9 % (0-10); NRBC Flagged by Analyzer 0.2 % (0-5); Neutrophil # 8.02 X10^3/uL (2.7-7.7); Neutrophil % 95.5 % (47-70); POSITIVE DIFFERENTIAL YES; Platelet Count 262 K/mm3 (150-450); RBC Distribution Width CV 13.9 % (11.6-14.6); RBC Distribution Width SD 55.3 fl (35.1-43.9); Red Blood Count 3.87 M/mm3 (4.6-6.2); White Blood Count 8.4 K/mm3 (4.4-11.0)
[2020-11-02 05:57] LABS: Anion Gap 2 (5-15); BUN 41 mg/dL (7-18); BUN/Creat Ratio 29.1 RATIO (10-20); Calcium,Total 8.4 mg/dL (8.5-10.1); Chloride 108 mmol/L (98-107); Creatinine, Serum 1.41 mg/dL (0.70-1.30); EST Glomerular Filtration Rate 51 mL/min (>60); Est Glom Filt Rate - Afr Amer 61 mL/min (>60); Estimated Creatinine Clearance 35.16 ml/min; Glucose 202 mg/dL (74-106); Potassium 5.3 mmol/L (3.5-5.1); Sodium Level 147 mmol/L (136-145)
--- NOTE | 2020-11-02 06:30 | PCM.RX.CS ---
Consult Pharmacy has been consulted to manage selected antiobiotic: Vancomycin Type of Consult: New start Labs: Sodium 147 mmol/L (136-145) H 11/02/20 04:45 Potassium 5.3 mmol/L (3.5-5.1) H 11/02/20 04:45 Chloride 108 mmol/L (98-107) H 11/02/20 04:45 Carbon Dioxide 37.0 mmol/L (21.0-32.0) H 11/02/20 04:45 Anion Gap 2 (5-15) L 11/02/20 04:45 BUN 41 mg/dL (7-18) H 11/02/20 04:45 Creatinine 1.41 mg/dL (0.70-1.30) H 11/02/20 04:45 Est GFR (MDRD) Af Amer 61 mL/min (>60) 11/02/20 04:45 Est GFR (MDRD) Non-Af 51 mL/min (>60) L 11/02/20 04:45 BUN/Creatinine Ratio 29.1 RATIO (10-20) H 11/02/20 04:45 Glucose 202 mg/dL (74-106) H 11/02/20 04:45 Microbiology: Microbiology 11/01/20 13:30 Mucosa - Nose SARS-CoV-2 Antigen (Rapid) - Final Weight used for dosin kg Estimated Creatinine Clearance: 35.16 Goal Trough: 15-20 mcg/mL Pharmacy Plan for Drug Dosing: Pharmacy Service will continue to monitor and adjust dosing as required. Medications Vancomycin HCl (Vancomycin) 1,000 mg in 200 mls @ 200 mls/hr IV Q24H CORI Discontinued Medications Vancomycin HCl 1,250 mg/ (Sodium Chloride) 275 mls @ 167 mls/hr IV X1 ONE Stop: 11/01/20 16:38 Last Admin: 11/01/20 18:43 Dose: Infused Documented by: Follow-Up Labs: Trough Vancomycin Labs to be done on [date and time ordered]: 11/03 @ 1530
[2020-11-02 06:31] LABS: Allen Test Positive; Base Excess 3 mmol/L (-2 to +2); Bicarbonate 32.9 mmol/L (22-26); Blood Gas Specimen Type ART; FI02 80; O2 Delivery Device BiPAP; PO2 85 mmHG (75-100); SITE R Brach; SO2 91 % (95-99); Total Carbon Dioxide 36 mmol/L; pCO2 105.6 mmHg (35-45)
--- NOTE | 2020-11-02 06:33 | PCM.PN.BLA ---
Progress Note Discussed with family ( and son (Mich)) on marginal pressures on levo. Family wants levo at 10mcg/min with no escalation. Assured family that care team will update them.
--- NOTE | 2020-11-02 06:57 | CON.PCM.CC_ITS ---
Assessment & Plan Assessment/Plan (1) Acute on chronic respiratory failure with hypoxia and hypercapnia: (2) Interstitial pulmonary disease, unspecified: PLAN: RECOMMENDATIONS: 1. Continue empiric antimicrobials. 2. Continue Levophed through peripheral IV, per family request. 3. Continue high-dose steroids for now. 4. Wean FiO2 to maintain oxygen saturations at or above 90%. 5. Obtain arterial blood gas. 6. Ongoing goals of care discussion with the patient's family. IMPRESSIONS: 1. Acute on chronic combined respiratory failure The patient has been followed on an outpatient basis due to progressive respiratory failure and concern for possible pulmonary fibrosis related to chronic aspiration. During his last hospitalization, a secondary work-up for interstitial lung disease was undertaken. The patient did have a positive rheumatoid factor and anti-CCP antibody screen, raising the question of possible rheumatoid associated interstitial lung disease. A referral was subsequently placed to rheumatology. However, the patient decompensated from a respiratory perspective prior to ever being evaluated. The patient's presenting chest x-ray revealed diffuse bilateral nodular appearing pulmonary infiltrates. While this could represent disease progression of his underlying interstitial disease, a superimposed infectious etiology or even malignancy is a possibility. Following a discussion with the patient's family, his CODE STATUS was confirmed to be DNR CCA without intubation. Arterial blood gas this morning revealed acute CO2 retention. Therefore, he was transitioned from BiPAP to AVAPS. Plan to continue the aforementioned and wean FiO2 to maintain saturations at or above 90%. Continue empiric antimicrobials along with high-dose IV steroids. 2. Septic shock Possible underlying pulmonary infectious process. The patient did initially receive IV fluids, but required initiation of vasopressor support in an attempt to maintain hemodynamic stability. The patient's family is not wishing to have a central venous catheter placed. Therefore, Levophed will be continued through a peripheral IV, per request. 3. Metabolic encephalopathy Likely secondary to hypercarbia in the setting of #1. Continue AVAPS as noted above. 4. Chronic heart failure with preserved ejection fraction/pulmonary hypertension Continue supportive measures as noted above. The patient is not a candidate for diuretic therapy given hemodynamic instability. 5. Hypertension/diabetes mellitus/advanced age Complicates care, management, recovery and prognosis. Hold home antihypertensives given hemodynamic instability. Ongoing goals of care discussion with the patient's family. TIME: 45 minutes of critical care time, independent of procedures, was spent addressing the patient's acute on chronic combined respiratory failure, septic shock, metabolic encephalopathy, review of all data and collaboration with the care team. ([id number]) HPI Consult Data Date of Consult: 11/02/20 HPI Narrative Reason for Consultation: Acute combined respiratory failure HPI Narrative: The patient is an 85-year-old male, with a history as outlined below, who presented to the emergency department on November 01 with progressive dyspnea. The patient was recently admitted to the hospital October 03 through with respiratory failure felt to be secondary to either recurrent aspiration or unspecified interstitial lung disease. An autoimmune work-up was obtained and the patient was treated with steroids. The patient's autoimmune profile revealed an elevated rheumatoid factor and positive CCP antibodies. The patient regularly follows with Dr. Britt due to a history of chronic pulmonary fibrosis, which has been suspected secondary to recurrent aspiration. A 6-minute walk test last completed in October 2019 revealed the need for 2 L/min of supplemental oxygen with exertion. However, the patient's use of supplemental oxygen has been inconsistent in the past. Surface echocardiogram from September 2020 revealed stage II diastolic dysfunction with a pulmonary artery systolic pressure estimated to be 70 mmHg. On presentation to the emergency department, the patient was noted to be afebrile and hemodynamically stable. He was, however, significantly tachypneic and hypoxemic. Initial laboratory evaluation revealed a normal white blood cell count. Chemistry profile was notable for a bicarbonate of 41 and creatinine of 1.43. Lactate was elevated to 2.5. Troponin was negative. BNP was normal at 98. Plain film chest x-ray revealed progressive multifocal nodular appearing airspace disease bilaterally. The patient initially received some IV fluid hydration along with antimicrobials and IV steroids. Although he was initially admitted to the progressive care unit, the patient had to be transferred to the ICU overnight due to hypotension and worsening respiratory status. Overnight, the patient was initially being maintained on BiPAP. However, ABG obtained this morning revealed a pH of 7.1, PCO2 of 105 and PO2 of 85. Therefore, the patient was transition to AVAPS. He is currently on Levophed at 10 mcg/min in an attempt to maintain hemodynamic stability. [facility] Medical History Acute on chronic blood loss anemia Acute respiratory failure with hypoxia Anemia Community acquired pneumonia Depression Hearing loss, left Hearing loss, right HTN (hypertension) Hypoxemia New onset atrial fibrillation On home oxygen therapy Pulmonary fibrosis Sepsis Septic shock Skin cancer Type 2 diabetes mellitus Upper GI bleed Home Medications amlodipine 10 mg PO DAILY 06/16/18 [History Last Taken 11/01/20] ipratropium bromide 2 spray NASAL BID PRN PRN 06/16/18 [History Last Taken 06/16/18] albuterol sulfate 1 - 2 puff INHALATION Q4H PRN PRN #1 inhaler 06/19/18 [Rx Last Taken Unknown] PEP device #1 ea 04/04/20 [Rx Last Taken Unknown] prednisone 10 mg tablet 10 mg PO DAILY #90 tab 10/18/20 [Rx Last Taken 11/01/20] fluticasone propionate 2 spray INTRANASAL DAILY PRN PRN 11/01/20 [History Last Taken Unknown] furosemide 20 mg PO DAILY 11/01/20 [History Last Taken 11/01/20] lisinopril 10 mg PO DAILY 11/01/20 [History Last Taken 11/01/20] metformin 500 mg PO BIDCM 11/01/20 [History Last Taken 11/01/20] metoprolol succinate 50 mg PO DAILY 11/01/20 [History Last Taken 11/01/20] sertraline 50 mg PO QHS 11/01/20 [History Last Taken 10/31/20] Allergy/AdvReac Type Severity Reaction Status Date / Time No Known Allergies Allergy Verified 11/01/20 13:17 Surgical History History of esophagogastroduodenoscopy (EGD) Social History Smoking Status: Former smoker alcohol intake: current details: Occasionally substance use type: does not use ROS Review of Systems ROS Unobtainable: due to encephalopathy and due to mental condition Physical Exam Const General Appearance: in distress, ill appearing, frail and on BiPAP Orientation / Consciousness: confused and disoriented HEENT normocephalic and head/scalp atraumatic Eyes PERRL and conjunctivae normal Neck supple General: trachea midline Resp Effort and Inspection: tachypneic and labored Auscultation: rales and diminished lung sounds; Negative for rhonchi or wheezes Cardio regular rate and regular rhythm GI normal to inspection, nondistended, normoactive bowel sounds Extremity no clubbing, cyanosis or edema Skin no rashes or lesions noted Neuro no focal motor deficits Psych Mood & Affect: flat affect Lab / Micro Data Result Diagrams: 11/02/20 04:45 11/02/20 04:45 Labs: Laboratory Results - last 24 hr 11/01/20 11/01/20 11/01/20 13:30 13:30 13:30 WBC 9.0 RBC 4.24 L Hgb 13.1 Hct 44.4 MCV 104.7 H MCH 30.9 MCHC 29.5 L RDW Std Deviation 54.2 H RDW Coeff of James 14.0 Plt Count 287 MPV 10.2 Immature Gran % (Auto) 0.600 Neut % (Auto) 86.1 H Lymph % (Auto) 7.1 L [place] % (Auto) 6.0 Eos % (Auto) 0.1 Baso % (Auto) 0.1 Absolute Neuts (auto) 7.8 H Absolute Lymphs (auto) 0.64 L Nucleated RBC % 0 Sodium 143 Potassium 4.3 Chloride 100 Carbon Dioxide 41.0 H Anion Gap 2 L BUN 42 H Creatinine 1.43 H Estim Creat Clear Calc 34.67 Est GFR (MDRD) Af Amer 60 Est GFR (MDRD) Non-Af 50 L BUN/Creatinine Ratio 29.4 H Glucose 263 H Lactic Acid Calcium 10.0 Total Bilirubin 0.20 AST 17 ALT 25 Alkaline Phosphatase 114 Troponin I < 0.015 B-Natriuretic Peptide 98.1 Total Protein 7.2 Albumin 3.0 L Globulin 4.2 Albumin/Globulin Ratio 0.7 L Lipase 135 POC Glucose 11/01/20 11/01/20 11/01/20 14:40 18:50 19:01 WBC RBC Hgb Hct MCV MCH MCHC RDW Std Deviation RDW Coeff of James Plt Count MPV Immature Gran % (Auto) Neut % (Auto) Lymph % (Auto) [place] % (Auto) Eos % (Auto) Baso % (Auto) Absolute Neuts (auto) Absolute Lymphs (auto) Nucleated RBC % Sodium Potassium Chloride Carbon Dioxide Anion Gap BUN Creatinine Estim Creat Clear Calc Est GFR (MDRD) Af Amer Est GFR (MDRD) Non-Af BUN/Creatinine Ratio Glucose Lactic Acid 2.5 H* 2.8 H* Calcium Total Bilirubin AST ALT Alkaline Phosphatase Troponin I B-Natriuretic Peptide Total Protein Albumin Globulin Albumin/Globulin Ratio Lipase POC Glucose 205 H 11/01/20 11/02/20 11/02/20 21:02 04:45 04:45 WBC 8.4 RBC 3.87 L Hgb 12.2 L Hct 41.4 MCV 107.0 H MCH 31.5 MCHC 29.5 L RDW Std Deviation 55.3 H RDW Coeff of James 13.9 Plt Count 262 MPV 10.8 Immature Gran % (Auto) 0.500 Neut % (Auto) 95.5 H Lymph % (Auto) 1.9 L [place] % (Auto) 1.9 Eos % (Auto) 0.0 Baso % (Auto) 0.2 Absolute Neuts (auto) 8.0 H Absolute Lymphs (auto) 0.16 L Nucleated RBC % 0.2 Sodium 147 H Potassium 5.3 H Chloride 108 H Carbon Dioxide 37.0 H Anion Gap 2 L BUN 41 H Creatinine 1.41 H Estim Creat Clear Calc 35.16 Est GFR (MDRD) Af Amer 61 Est GFR (MDRD) Non-Af 51 L BUN/Creatinine Ratio 29.1 H Glucose 202 H Lactic Acid Calcium 8.4 L Total Bilirubin AST ALT Alkaline Phosphatase Troponin I B-Natriuretic Peptide Total Protein Albumin Globulin Albumin/Globulin Ratio Lipase POC Glucose 231 H 11/02/20 05:10 WBC RBC Hgb Hct MCV MCH MCHC RDW Std Deviation RDW Coeff of James Plt Count MPV Immature Gran % (Auto) Neut % (Auto) Lymph % (Auto) [place] % (Auto) Eos % (Auto) Baso % (Auto) Absolute Neuts (auto) Absolute Lymphs (auto) Nucleated RBC % Sodium Potassium Chloride Carbon Dioxide Anion Gap BUN Creatinine Estim Creat Clear Calc Est GFR (MDRD) Af Amer Est GFR (MDRD) Non-Af BUN/Creatinine Ratio Glucose Lactic Acid Calcium Total Bilirubin AST ALT Alkaline Phosphatase Troponin I B-Natriuretic Peptide Total Protein Albumin Globulin Albumin/Globulin Ratio Lipase POC Glucose 191 H Micro: Microbiology 11/01/20 13:30 SARS-CoV-2 Antigen (Rapid) - Final Mucosa - Nose ABG Data ABG results: ABG 11/01/20 11/01/20 11/02/20 14:19 14:20 06:26 Specimen Type ART Cancelled ART Sample Site L Radial Cancelled R Brach pH 7.24 L Cancelled 7.10 L* Bicarbonate Actual 38.0 H Cancelled 32.9 H Total CO2 41 Cancelled 36 Base Excess 11 H Cancelled 3 H O2 Saturation 94 L Cancelled 91 L O2 % 80 Cancelled 80 ABG pCO2 89.6 H* Cancelled 105.6 H* ABG pO2 89 Cancelled 85 Isidro Test Positive Cancelled Positive Respiration Rate Cancelled O2 Delivery Device BiPAP Cancelled BiPAP Liter Flow Cancelled Minute Volume Cancelled Vent Mode Cancelled Inspiratory Time Cancelled Expiratory Time Cancelled Tidal Volume Cancelled Mean Airway Pressure Cancelled POC PEEP Cancelled Peak Inspir Pressure Cancelled POC Pressure Suppt Cancelled Pressure Control Cancelled Pressure High Cancelled Pressure Low Cancelled Time High Cancelled Time Low Cancelled EPAP Cancelled IPAP Cancelled Blood Gas Comments Cancelled Crit Call To/Read Back Yes Cancelled Yes Blood Gas Notified Whom dr welch Cancelled DR CLAY Blood Gas Notified Time Cancelled Clinical Comments 28/12 Cancelled 28/12 RR12 80% Radiology Impression Chest X-Ray 11/01/20 14:24 IMPRESSION: Progressive bilateral nodular alveolar infiltrates in both lungs. Small pleural effusions slightly more prominent on the left side. Metastatic bronchioloalveolar carcinoma should be ruled out. Electronically Signed: Anthony Bowling MD at 14:44 EDT , Service support , Charges/Coding Procedures Hospitalists Procedures: [id number] Critial Care 1st Hr
--- NOTE | 2020-11-02 07:34 | PN.HOSP_ITS ---
Subjective Subjective The patient is known to have unspecified interstitial lung disease, chronic pulmonary fibrosis recurrent aspiration follows Dr. Britt. Patient is on a steroid for elevated rheumatoid factor and positive CCP antibodies. Patient also has severe pulmonary hypertension, chronic heart failure with preserved EF. 2D echo in September 2020 showed EF 60%, stage II diastolic function, RVSP 70 imaging. Had transient A. fib during previous admission in September 2020. Patient is being admitted in the ICU yesterday through ER for progressive worsening of shortness of breath, acute on chronic respiratory failure. Patient was recently admitted discharge antibiotics and the steroids. Patient afebrile, heart rate in 40s, blood pressure low 70s on vasopressor through peripheral line. Family does not want central line. Lactic acidosis. On BiPAP, 80% FiO2. Patient is on unconscious state Objective Data Objective Data Vital Signs: Vital Signs Temp Pulse Resp BP Pulse Ox 90.7 F L 46 L 23 H 74/46 L 97 11/02/20 07:00 11/02/20 07:00 11/02/20 07:00 11/02/20 07:00 11/02/20 07:00 Oxygen Flow Rate (L/min) 15 Oxygen Delivery Method Bi-pap Weight: 171 lb 15.369 oz Body Mass Index (BMI) 26.9 Intake & Output: Intake and Output for Last 24 Hours 10/31/20 11/01/20 11/02/20 23:59 23:59 23:59 Intake Total 2473.33 / 2473.33 1636.29 / 1636.29 Output Total 200 / 200 Balance 2473.33 / 2473.33 1436.29 / 1436.29 Lab / Micro Data Result Diagrams: 11/02/20 04:45 11/02/20 04:45 Labs: Laboratory Results - last 24 hr 11/01/20 11/01/20 11/01/20 13:30 13:30 13:30 WBC 9.0 RBC 4.24 L Hgb 13.1 Hct 44.4 MCV 104.7 H MCH 30.9 MCHC 29.5 L RDW Std Deviation 54.2 H RDW Coeff of James 14.0 Plt Count 287 MPV 10.2 Immature Gran % (Auto) 0.600 Neut % (Auto) 86.1 H Lymph % (Auto) 7.[address] [place] % (Auto) 6.0 Eos % (Auto) 0.1 Baso % (Auto) 0.1 Absolute Neuts (auto) 7.8 H Absolute Lymphs (auto) 0.64 L Nucleated RBC % 0 Sodium 143 Potassium 4.3 Chloride 100 Carbon Dioxide 41.0 H Anion Gap 2 L BUN 42 H Creatinine 1.43 H Estim Creat Clear Calc 34.67 Est GFR (MDRD) Af Amer 60 Est GFR (MDRD) Non-Af 50 L BUN/Creatinine Ratio 29.4 H Glucose 263 H Lactic Acid Calcium 10.0 Total Bilirubin 0.20 AST 17 ALT 25 Alkaline Phosphatase 114 Troponin I < 0.015 B-Natriuretic Peptide 98.1 Total Protein 7.2 Albumin 3.0 L Globulin 4.2 Albumin/Globulin Ratio 0.7 L Lipase 135 POC Glucose 11/01/20 11/01/20 11/01/20 14:40 18:50 19:01 WBC RBC Hgb Hct MCV MCH MCHC RDW Std Deviation RDW Coeff of James Plt Count MPV Immature Gran % (Auto) Neut % (Auto) Lymph % (Auto) [place] % (Auto) Eos % (Auto) Baso % (Auto) Absolute Neuts (auto) Absolute Lymphs (auto) Nucleated RBC % Sodium Potassium Chloride Carbon Dioxide Anion Gap BUN Creatinine Estim Creat Clear Calc Est GFR (MDRD) Af Amer Est GFR (MDRD) Non-Af BUN/Creatinine Ratio Glucose Lactic Acid 2.5 H* 2.8 H* Calcium Total Bilirubin AST ALT Alkaline Phosphatase Troponin I B-Natriuretic Peptide Total Protein Albumin Globulin Albumin/Globulin Ratio Lipase POC Glucose 205 H 11/01/20 11/02/20 11/02/20 21:02 04:45 04:45 WBC 8.4 RBC 3.87 L Hgb 12.2 L Hct 41.4 MCV 107.0 H MCH 31.5 MCHC 29.5 L RDW Std Deviation 55.3 H RDW Coeff of James 13.9 Plt Count 262 MPV 10.8 Immature Gran % (Auto) 0.500 Neut % (Auto) 95.5 H Lymph % (Auto) 1.[address] % (Auto) 1.9 Eos % (Auto) 0.0 Baso % (Auto) 0.2 Absolute Neuts (auto) 8.0 H Absolute Lymphs (auto) 0.16 L Nucleated RBC % 0.2 Sodium 147 H Potassium 5.3 H Chloride 108 H Carbon Dioxide 37.0 H Anion Gap 2 L BUN 41 H Creatinine 1.41 H Estim Creat Clear Calc 35.16 Est GFR (MDRD) Af Amer 61 Est GFR (MDRD) Non-Af 51 L BUN/Creatinine Ratio 29.1 H Glucose 202 H Lactic Acid Calcium 8.4 L Total Bilirubin AST ALT Alkaline Phosphatase Troponin I B-Natriuretic Peptide Total Protein Albumin Globulin Albumin/Globulin Ratio Lipase POC Glucose 231 H 11/02/20 05:10 WBC RBC Hgb Hct MCV MCH MCHC RDW Std Deviation RDW Coeff of James Plt Count MPV Immature Gran % (Auto) Neut % (Auto) Lymph % (Auto) [place] % (Auto) Eos % (Auto) Baso % (Auto) Absolute Neuts (auto) Absolute Lymphs (auto) Nucleated RBC % Sodium Potassium Chloride Carbon Dioxide Anion Gap BUN Creatinine Estim Creat Clear Calc Est GFR (MDRD) Af Amer Est GFR (MDRD) Non-Af BUN/Creatinine Ratio Glucose Lactic Acid Calcium Total Bilirubin AST ALT Alkaline Phosphatase Troponin I B-Natriuretic Peptide Total Protein Albumin Globulin Albumin/Globulin Ratio Lipase POC Glucose 191 H Micro: Microbiology 11/01/20 13:30 Mucosa - Nose SARS-CoV-2 Antigen (Rapid) - Final ABG Data ABG results: ABG 11/01/20 11/01/20 11/02/20 14:19 14:20 06:26 Specimen Type ART Cancelled ART Sample Site L Radial Cancelled R Brach pH 7.24 L Cancelled 7.10 L* Bicarbonate Actual 38.0 H Cancelled 32.9 H Total CO2 41 Cancelled 36 Base Excess 11 H Cancelled 3 H O2 Saturation 94 L Cancelled 91 L O2 % 80 Cancelled 80 ABG pCO2 89.6 H* Cancelled 105.6 H* ABG pO2 89 Cancelled 85 Isidro Test Positive Cancelled Positive Respiration Rate Cancelled O2 Delivery Device BiPAP Cancelled BiPAP Liter Flow Cancelled Minute Volume Cancelled Vent Mode Cancelled Inspiratory Time Cancelled Expiratory Time Cancelled Tidal Volume Cancelled Mean Airway Pressure Cancelled POC PEEP Cancelled Peak Inspir Pressure Cancelled POC Pressure Suppt Cancelled Pressure Control Cancelled Pressure High Cancelled Pressure Low Cancelled Time High Cancelled Time Low Cancelled EPAP Cancelled IPAP Cancelled Blood Gas Comments Cancelled Crit Call To/Read Back Yes Cancelled Yes Blood Gas Notified Whom dr welch Cancelled DR CLAY Blood Gas Notified Time Cancelled Clinical Comments 28/12 Cancelled 28/12 RR12 80% Radiography Diagnostic Testing: Radiology Impression Chest X-Ray 11/01/20 14:24 IMPRESSION: Progressive bilateral nodular alveolar infiltrates in both lungs. Small pleural effusions slightly more prominent on the left side. Metastatic bronchioloalveolar carcinoma should be ruled out. Electronically Signed: Anthony Bowling MD at 14:44 EDT , Service support , Physical Exam Narrative General: nonverbal, not comprehensive, moribund, mainly unresponsive and unconscious HEENT: Atraumatic, PERRLA, EOMI, Normocephalic Oral: No Gingival or Mucosal Lesions/ Ulcerations Neck: Supple, No JVD, Negative Carotid Bruits Lungs: Air entry severely diminished in bilateral lung bases. Bilateral inspiratory rales present Cardiovascular: Regular rate, Regular Rhythm, Normal S1, Normal S2, No murmurs Abdomen: Bowel Sounds Present, Soft, Non Tender, Non-Distended : No urine output catheter. No renal angle tenderness. No suprapubic tenderness. Extremities: No edema, Capillary Refill Less than 3 Seconds Skin: No rashes, No breakdown Musculoskeletal: No Tenderness to Palpation of Joints or Extremities. Moderate atrophy of extremity muscles Neurological: Cranial nerves II-XII grossly intact, Deep Tendon Reflexes 2+/4 and Symmetrical, Neuro grossly intact Psych/Mental Status: Unconscious, unresponsive Assessment & Plan Assessment/Plan (1) Acute on chronic respiratory failure with hypoxia and hypercapnia: (2) Postinflammatory pulmonary fibrosis: (3) Aspiration pneumonia: QUALIFIERS: Aspiration pneumonia type: unspecified Laterality: unspecified laterality Lung location: unspecified part of lung Qualified Code(s): J69.0 - Pneumonitis due to inhalation of food and vomit PLAN: 1. Acute on chronic combined hypoxic and hypercarbic respiratory failure with chronic interstitial lung disease and pulmonary fibrosis. The exact etiology has not been found out. Its aggravated by chronic aspiration. Patient had positive rheumatoid factor anti-CCP antibody screen but could not see enterprise account executive. ABG pH seven-point 1/105/85/36 on BiPAP 80% FiO2. Lactic acid 2.8. Currently patient is DNR CC. On BiPAP support. On high FiO2. Discussed with metal fabricating shop helper. Discussed with the family member patient's and son near the bedside and explained the poor prognosis. Patient's wanted to be comfortable and does not want to suffer therefore liberal dose of Ativan and morphine. 2. Septic shock most likely secondary to aspiration pneumonia: Patient family preferred vessel pressure through peripheral line therefore Levophed. 3. Chronic heart failure with EF with secondary pulmonary hypertension: BP 86/51, in low 50s. Patient blood pressure is low. Not candidate for diuretic 4. Metabolic encephalopathy secondary to hypercarbia: On BiPAP 5. Diabetes mellitus type 2: Complicates the clinical management. 6 CKD stage IIIb: Patient creatinine clearance has been around 35-45 mils per minute. Poor prognosis. DNR CC/hospice care Total time of the visit including total time spent in counseling or coordination of care, (more than 50% of the total time, spent in obtaining medical informatio n from nurses and other ancillary care providers,explaining to the patient about labs, imaging, diagnosis and management), discussion with family member, review of labs and imaging is 30 minutes. Patient is eligible for hospice care. Charges/Coding Visit Charges Inpatient E&M: 10036 Subs Hosp L3
[2020-11-02] MEDS: Morphine 2 MG/ML Syringe IV (12:32)
--- NOTE | 2020-11-02 17:30 | EXP.PCM_ITS ---
Preliminary Cause of Preliminary Cause of Preliminary Cause of : Acute on chronic hypoxic and hypercarbic respiratory failure secondary to interstitial pulmonary disease Interstitial pulmonary disease Septic shock most probably degree of aspiration pneumonia Metabolic encephalopathy most probably from hypercarbia Hypotension probably from septic shock, hypoxia and respiratory failure Diabetes mellitus type 2 History of hypertension Date of Admission: 11/01/20 Date of : 11/02/20 Principle Diagnosis Acute on chronic hypoxic and hypercarbic respiratory failure secondary to interstitial pulmonary disease Problem List: Active and Suspected Problems (Updated 11/01/20 @ 15:36 by Charo Ba, BOX [employer]ICATOR-C) Interstitial pulmonary disease, unspecified (Acute) Aspiration pneumonia (Suspected) Hospital Course Patient is a 85-year-old male was admitted on November 01 with progressive dyspnea. Patient was admitted in ICU on BiPAP. Patient has known history of chronic pulmonary fibrosis complicated with recurrent aspiration. Patient had elevated rheumatoid factor and positive CCP antibodies could not follow field artillery fire control man. 2D echo in September 2020 showed a stage II diastolic function, severe pulmonary hypertension, RVSP 70 mmHg. Patient elevated lactic acid 2.5. Bicarbonate elevated 41. ABG shows pH 7.1/PCO2 105/85 on BiPAP 80% FiO2. Lactic acid 2.8. BiPAP was changed to AVPAS comanaged with primary montessori teacher. Septic shock most likely secondary to aspiration pneumonia and patient on broad-spectrum antibiotic IV Zosyn. Other comorbidities include chronic heart failure with preserved EF with severe pulmonary hypertension. Patient hypotension and family wanted Levophed through peripheral line till family member arrives. Initially DNRCC arrest status Later on, patient was made DNR CC hospice care by family member. Patient's family member wanted double dose of morphine and Ativan in order to not to suffer and help gasping for air. Other right-sided comorbidities include metabolic encephalopathy secondary to hypercarbia, diabetes mellitus type 2, CKD stage IIIb and hypertension. Patient in peaceful way at 1604 hrs. on 11/02/2020. Visit Charges Inpatient E&M: 32911 Disch Hosp
== END 2020-11-02 16:04 | DRG 871 ==
LOC: ED 15:06 → PCU 19:01 → ICU 11-02 05:42
PROVIDERS: Nurse Practitioner Family; Admitting Provider Internal Medicine; Emergency Provider Emergency Medicine; PCP Internal Medicine; Visit Provider Internal Medicine
DX: A41.9 Sepsis, unspecified organism (principal); J69.0 Pneumonitis due to inhalation of food and vomit; G93.41 Metabolic encephalopathy; J96.21 Acute and chronic respiratory failure with hypoxia; J96.22 Acute and chronic respiratory failure with hypercapnia; R65.21 Severe sepsis with septic shock; I13.0 Hypertensive heart and chronic kidney disease with heart failure and stage 1 through stage 4 chronic kidney disease, or unspecified chronic kidney disease; I50.32 Chronic diastolic (congestive) heart failure; N17.9 Acute kidney failure, unspecified; E11.22 Type 2 diabetes mellitus with diabetic chronic kidney disease; F32.9 Major depressive disorder, single episode, unspecified; H91.93 Unspecified hearing loss, bilateral; I27.20 Pulmonary hypertension, unspecified; I48.91 Unspecified atrial fibrillation; J84.10 Pulmonary fibrosis, unspecified; N18.32 Chronic kidney disease, stage 3b; Z66 Do not resuscitate; Z86.2 Personal history of diseases of the blood and blood-forming organs and certain disorders involving the immune mechanism; Z79.84 Long term (current) use of oral hypoglycemic drugs; Z79.899 Other long term (current) drug therapy; Z99.81 Dependence on supplemental oxygen; Z87.891 Personal history of nicotine dependence; Z85.828 Personal history of other malignant neoplasm of skin; Z87.19 Personal history of other diseases of the digestive system
CPT/HCPCS: 36415; 36600; 71045; 80048; 80053; 82803; 82962; 83605; 83690; 83880; 84484; 85025; 87040; 87426; 93005; 94002; 94003; 94640; 94762; 99285; J7030; J7040; J7050; A4216